=== PATIENT | male | born 1980 | race American Indian/Alaskan Native ===

== ENCOUNTER 2016-06-20 23:26 | Emergency (ER) | payer MEDICAID ==
[2016-06-21] MEDS ORDERED: NORCO 5/325 PO ONE (03:27)
[2016-06-21] MEDS ORDERED: ZOFRAN ONE (04:04)
[2016-06-21] MEDS ORDERED: MORPHINE ONE ×2 (04:04)
[2016-06-21] MEDS ORDERED: MORPHINE IM ONE (04:10)
[2016-06-21] MEDS ORDERED: ZOFRAN IM ONE (04:40)
--- NOTE | 2016-06-21 07:13 | XRay Report ---
THORACIC SPINE, 2 views: History: Back pain. The bones are normally mineralized with well preserved vertebral height, alignment and interspace distances. Mild anterior spurring is noted in the mid thoracic spine. No paraspinal soft tissue widening is noted. IMPRESSION: Mild thoracic spondylosis. No acute injury appreciated.
--- NOTE | 2016-06-21 07:14 | XRay Report ---
AP AND LATERAL LUMBOSACRAL SPINE: History: Back pain. The vertebral bodies are well mineralized and normal in alignment and vertebral height with well preserved interspace distances. The visualized portions of the posterior elements are normal. IMPRESSION: Lumbar spine within normal limits.
[2016-06-21 07:29] LABS: Basophils % (Auto) 0.4 % (0.0-1.8); Eosinophils % (Auto) 2.4 % (0.0-4.3); Hematocrit 41.1 % (35.5-45.6); Hemoglobin 13.4 gm/dl (11.8-15.2); Mean Corpuscular HGB Conc 33 % (32-34); Mean Corpuscular Hemoglobin 28 pg (28-32); Mean Corpuscular Volume 86 fl (84-94); Platelet Count 197 K/mm3 (140-440); Red Cell Distribution Width 16.4 % (13.2-15.2); White Blood Count 3.4 K/mm3 (4.5-11.0)
[2016-06-21 07:31] LABS: Urine Drugs of Abuse Note Disclamer
--- NOTE | 2016-06-21 07:33 | Emergency Department Report ---
<CARMENZA TOMLINSON M - Last Filed: 06/21/16 10:17> ED Back Pain/Injury HPI - General Chief Complaint: Back Pain/Injury Stated Complaint: BACK PAIN Time Seen by Provider: 06/21/16 03:28 - Related Data Previous Rx's Medication Instructions Recorded Last Taken Type Carvedilol [Coreg] 12.5 mg PO BID #60 tablet 01/31/16 Unknown Rx Clopidogrel [Plavix] 75 mg PO QDAY #30 tablet 01/31/16 Unknown Rx QUEtiapine [SEROquel] 25 mg PO QHS #30 tablet 01/31/16 Unknown Rx HYDROcodone/APAP 5-325 [[place] 1 each PO Q6HR PRN #10 tablet 06/21/16 Unknown Rx 5/325] methOCARBAMOL [Robaxin TAB] 500 mg PO Q6H PRN #10 tablet 06/21/16 Unknown Rx Allergies Allergy/AdvReac Type Severity Reaction Status Date / Time aspirin Allergy Hives Verified 01/14/16 02:43 ED Review of Systems ROS: Stated complaint: BACK PAIN Other details as noted in HPI ED Past Medical Hx - Medications Home Medications: Home Medications Medication Instructions Recorded Confirmed Last Taken Type Carvedilol [Coreg] 12.5 mg PO BID #60 tablet 01/31/16 Unknown Rx Clopidogrel [Plavix] 75 mg PO QDAY #30 tablet 01/31/16 Unknown Rx QUEtiapine [SEROquel] 25 mg PO QHS #30 tablet 01/31/16 Unknown Rx HYDROcodone/APAP 5-325 [[place] 1 each PO Q6HR PRN #10 tablet 06/21/16 Unknown Rx 5/325] methOCARBAMOL [Robaxin TAB] 500 mg PO Q6H PRN #10 tablet 06/21/16 Unknown Rx ED Course Vital Signs 06/21/16 06/21/16 06/21/16 00:15 03:28 04:28 Temperature 98.3 F Pulse Rate 103 H Respiratory 22 18 18 Rate Blood Pressure 157/100 Blood Pressure [Left] O2 Sat by Pulse 98 Oximetry O2 Sat by Pulse Oximetry [ Digit-Finger] 06/21/16 06/21/16 06/21/16 04:40 05:10 08:31 Temperature 98.1 F Pulse Rate 69 Respiratory 18 18 20 Rate Blood Pressure Blood Pressure 148/78 [Left] O2 Sat by Pulse 96 Oximetry O2 Sat by Pulse Oximetry [ Digit-Finger] 06/21/16 10:18 Temperature Pulse Rate Respiratory Rate Blood Pressure Blood Pressure [Left] O2 Sat by Pulse Oximetry O2 Sat by Pulse 96 Oximetry [ Digit-Finger] - Reevaluation(s) Reevaluation #1: 06/21/16 10:10 Pt ambulatory in ED, asking about dispo. PT aware of lab results. PT aware that his INR is subtheraputic. PT states his coumadin is managed by Dr Kaur. PT aware he will have to follow up. PT was treated with Morphine and [place] while in ED. PT still reports pain across lumbar spine. PT's bp improved after pain medication. PT stable for outpt follow up. Reevaluation #2: 06/21/16 10:18 pt c/o itching. no rash noted. will treat with Benadryl - Pulse Oximetry Interpretation Digit-Finger O2 Sat by Pulse Oximetry: 96 Actions Taken: none ED Medical Decision Making - Lab Data Result diagrams: 06/21/16 07:18 06/21/16 07:18 Critical care attestation.: If time is entered above; I have spent that time in minutes in the direct care of this critically ill patient, excluding procedure time. ED Disposition Clinical Impression: Acute exacerbation of chronic low back pain, Subtherapeutic international normalized ratio (INR), Elevated BP, Marijuana abuse Disposition: DISCHARGED TO HOME OR SELFCARE Is pt being admited?: No Does the pt Need Aspirin: No Condition: Stable Instructions: Chronic Back Pain (ED), Back Pain (ED) Additional Instructions: Follow up with Dr Kaur's office regarding your low INR No driving or ETOH with [place] or Robaxin Have your BP rechecked on follow up Follow up with a Neurosurgeon as already instructed Prescriptions: HYDROcodone/APAP 5-325 [[place] 5/325] 1 each PO Q6HR PRN #10 tablet PRN Reason: Pain methOCARBAMOL [Robaxin TAB] 500 mg PO Q6H PRN #10 tablet PRN Reason: Muscle Spasm Referrals: PRIMARY CARE, [Primary Care Provider] - 3-5 Days Time of Disposition: 10:15 <CINTHYA BARNEY - Last Filed: 06/22/16 07:15> ED Back Pain/Injury HPI - General Source: patient Limitations: No Limitations - History of Present Illness Initial Comments: 35-year-old male past medical history CO, TIAs, chronic back pain presents with complaint of severe lower back pain which makes his entire back feels stiff. Patient states that this episode occurred at 3 AM, visibly colicky on exam. Patient denies any direct trauma states he was at work at 3 AM when he suddenly felt pain, felt sharp could not bend or turn his trunk which is why he came to the ED. Denies any fever or chills patient is ambulatory but limping due to pain. Patient states that he has history of herniated disks and was seen at a hospital in [facility] month ago for issues with his herniated disks. Patient is poor historian and is unable to elaborate further or provide the exact name of Hospital where he claims to have been seen. Patient is fully ambulatory without assistance although limping. Patient is requesting strong pain medicine for his back pain. Patient denies any bladder or bowel incontinence denies any saddle paresthesias. MD Complaint: back pain Onset/Timin -: hour(s) Place: work Radiation: none Severity: moderate Quality: sharp Consistency: constant Improves With: immobilization Worsens With: immobilization Context: while lifting, turning/twisting, bending Associated Symptoms: denies other symptoms ED Review of Systems Constitutional: denies: chills, fever Eyes: denies: eye pain, eye discharge, vision change ENT: denies: ear pain, throat pain Respiratory: denies: cough, shortness of breath, wheezing Cardiovascular: denies: chest pain, palpitations Endocrine: no symptoms reported Gastrointestinal: denies: abdominal pain, nausea, diarrhea Genitourinary: denies: urgency, dysuria Musculoskeletal: back pain. denies: joint swelling, arthralgia Skin: denies: rash, lesions Neurological: denies: headache, weakness, paresthesias Psychiatric: denies: anxiety, depression Hematological/Lymphatic: denies: easy bleeding, easy bruising ED Past Medical Hx - Past Medical History Previous Medical History?: Yes Hx Hypertension: Yes Hx CVA: Yes (TIAs, residiu. right side weakness) Hx Heart Attack/AMI: Yes (2 stents placed 2014) Hx Congestive Heart Failure: No Hx Diabetes: Yes Hx Deep Vein Thrombosis: Yes (R-leg) Hx Pulmonary Embolism: Yes Hx GERD: No Hx Liver Disease: No Hx Renal Disease: No Hx Sickle Cell Disease: No Hx Arthritis: No Hx Headaches / Migraines: No Hx Seizures: No Hx Kidney Stones: No Hx Psychiatric Treatment: No Hx Asthma: Yes Hx COPD: No Hx Tuberculosis: No Hx Dementia: No Hx HIV: No Additional medical history: Ulcers, a-fib. strong family hx of cardiac disorders - Surgical History Hx Coronary Stent: Yes (2014) Hx Open Heart Surgery: No Hx Pacemaker: No Hx Internal Defibrillator: No Hx Cholecystectomy: No Hx Appendectomy: No Hx Breast Surgery: No Additional Surgical History: Stent placement - Social History Smoking Status: Never Smoker Substance Use Type: None ED Physical Exam - General Limitations: No Limitations General appearance: alert, in no apparent distress - Head Head exam: Present: atraumatic, normocephalic - Eye Eye exam: Present: normal appearance, PERRL, EOMI - ENT ENT exam: Present: mucous membranes moist - Neck Neck exam: Present: normal inspection - Respiratory Respiratory exam: Present: normal lung sounds bilaterally. Absent: respiratory distress - Cardiovascular Cardiovascular Exam: Present: regular rate, normal rhythm. Absent: systolic murmur, diastolic murmur, rubs, gallop - GI/Abdominal GI/Abdominal exam: Present: soft, normal bowel sounds - Rectal Rectal exam: Present: normal rectal tone (patient has normal rectal tone on digital rectal exam) - Extremities Exam Extremities exam: Present: normal inspection - Back Exam Back exam: Present: normal inspection, muscle spasm, paraspinal tenderness - Expanded Back Exam Expanded Back exam: Positive Straight Leg Raise: Right (positive straight leg raise test at 30 right leg) - Neurological Exam Neurological exam: Present: alert, oriented X3 - Psychiatric Psychiatric exam: Present: normal affect, normal mood - Skin Skin exam: Present: warm, dry, intact, normal color. Absent: rash ED Medical Decision Making - Lab Data Result diagrams: 06/21/16 07:18 06/21/16 07:18 - Medical Decision Making A/P: back pain on AC 1- Case d/w Dr. Jackson and Dr. Farrar, per Dr. Jackson obtain xrays of spine. On my clinical exam pt has no signs of cauda equina or cord compression, normal rectal tone, no bladder/bowel incontinence, no saddle paraesthesias reported. 2- as per Dr. Farrar as pt has lower back pain on AC obtain INR, plan for imaging if sig elevated, dc w/ f/u if normal, pt has no sig signs of cord compression 3- case signed out to TIARA Mercado ED Disposition Is pt being admited?: No Does the pt Need Aspirin: No
[2016-06-21 07:36] LABS: INR 1.14 (0.87-1.13)
[2016-06-21 07:46] LABS: Anion Gap 17 mmol/L; BUN/Creatinine Ratio 8.46; Blood Urea Nitrogen 11 mg/dL (9-20); Calcium 9.3 mg/dL (8.4-10.2); Carbon Dioxide 27 mmol/L (22-30); Chloride 103.5 mmol/L (98-107); Glucose 111 mg/dL (75-100); Potassium 3.8 mmol/L (3.6-5.0); Sodium 144 mmol/L (137-145)
[2016-06-21 08:32] VITALS: BP 148/78
[2016-06-21] MEDS ORDERED: BENADRYL PO ONE (10:17)
== END 2016-06-21 10:48 | disposition home or self-care (01) ==
LOC: ED 23:26
DX: M54.5 Low back pain (principal); G89.29 Other chronic pain; R03.0 Elevated blood-pressure reading, without diagnosis of hypertension; F12.10 Cannabis abuse, uncomplicated; R79.1 Abnormal coagulation profile; Z88.6 Allergy status to analgesic agent
CPT/HCPCS: 36415; 72070; 72100; 80048; 80307; 85025; 85610; 96372; 99284; J2270; J2405

== ENCOUNTER 2016-07-01 07:31 | Inpatient (IN) | payer MEDICAID ==
[2016-07-01 08:13] LABS: Basophils % (Auto) 0.9 % (0.0-1.8); Eosinophils % (Auto) 1.1 % (0.0-4.3); Hematocrit 42.5 % (35.5-45.6); Hemoglobin 13.9 gm/dl (11.8-15.2); Mean Corpuscular HGB Conc 33 % (32-34); Mean Corpuscular Hemoglobin 28 pg (28-32); Mean Corpuscular Volume 86 fl (84-94); Platelet Count 224 K/mm3 (140-440); Red Blood Count 4.95 M/mm3 (3.65-5.03); Red Cell Distribution Width 16.6 % (13.2-15.2)
[2016-07-01 08:32] LABS: INR 1.16 (0.87-1.13)
[2016-07-01 08:33] LABS: Partial Thromboplastin Time 24.2 Sec. (24.2-36.6)
[2016-07-01 08:34] LABS: Anion Gap 20 mmol/L; BUN/Creatinine Ratio 10.71; Blood Urea Nitrogen 15 mg/dL (9-20); Calcium 9.3 mg/dL (8.4-10.2); Carbon Dioxide 23 mmol/L (22-30); Chloride 99.7 mmol/L (98-107); Glucose 107 mg/dL (75-100); Potassium 4.1 mmol/L (3.6-5.0); Sodium 139 mmol/L (137-145)
--- NOTE | 2016-07-01 09:15 | Cat Scan Report ---
FINAL REPORT PROCEDURE: CT HEAD/BRAIN WO CON TECHNIQUE: Computerized tomography of the head was performed without contrast material. HISTORY: neuro deficits \T\lt; 6hrs or sx present upon awakening COMPARISON: 01/29/2016 FINDINGS: Skull and scalp: Regional scalp swelling posterior head area with no underlying skull fracture seen axial 48 through 51. Unfused anterior arch C1 skullbase incidentally seen Paranasal sinuses: Mucous retention cyst in the maxillary sinuses with lobular mucosal thickening also evident. Ventricles and subarachnoid spaces: Normal. Cerebrum: No evidence of hemorrhage, acute infarction or mass. No definitive evidence of sulcal effacement or definite evidence of acute ischemic change depicted at this time within the parenchyma. Cerebellum and brainstem: No evidence of hemorrhage, acute infarction or mass. Vasculature: In comparison to the prior study and in correlation with left to right middle cerebral artery analysis there is slight increased density within right M1 segment at 49 HU axial image 23 on the right. Comparable section on the left side HU 34. On prior study right M1 segment 38 HU and on the left 35 HU. Similar density of the right M3 segment in the sylvian fissure on current study as seen on prior study and indicating chronicity and stable appearance current image 24 and prior image 24 Comments: None. IMPRESSION: Possible subtle mildly dense right MCA sign which could reflect very early or partial thrombosis versus artifact and fortuitous anatomy lay out vis a' vis slice imaging acquisition at this time with underlying atherosclerosis. Consider followup MRI with [facility] to further evaluate No evidence of acute ischemic change within the parenchyma at this time.
--- NOTE | 2016-07-01 09:22 | Emergency Department Report ---
ED Neuro Deficit HPI - General Chief Complaint: Neuro Symptoms/Deficit Stated Complaint: WEAKNESS R LEG Time Seen by Provider: 07/01/16 08:38 Source: patient Mode of arrival: Ambulatory Limitations: No Limitations - History of Present Illness Initial Comments: 35-year-old male with a past medical history of CVA with transient left-sided weakness, right leg DVT, PE, CAD with 2 stents placed in 2014, herniated discs, atrial fibrillation, and ulcers presents to the hospital with complaints of right leg numbness and weakness. Patient states he woke up about 6 AMhe could not feel or move his leg. Triage does note that he ambulated into triage. Patient denies any pain at this time. He also denies urinary incontinence. Patient was just seen and evaluated here June 21 for back pain. INR was subtherapeutic at that time patient had a negative CT thoracic or lumbar spine. Previous medical record reviewed. As per discharge summary from January 2016 admission patient had right sided hemiparesis thought to be due to malingering vs conversion d/o with similar presentation of right leg weakness. - Related Data Home Medications: Previous Rx's Medication Instructions Recorded Last Taken Type Carvedilol [Coreg] 12.5 mg PO BID #60 tablet 01/31/16 Unknown Rx Clopidogrel [Plavix] 75 mg PO QDAY #30 tablet 01/31/16 Unknown Rx QUEtiapine [SEROquel] 25 mg PO QHS #30 tablet 01/31/16 Unknown Rx HYDROcodone/APAP 5-325 [[place] 1 each PO Q6HR PRN #10 tablet 06/21/16 Unknown Rx 5/325] methOCARBAMOL [Robaxin TAB] 500 mg PO Q6H PRN #10 tablet 06/21/16 Unknown Rx Allergies/Adverse Reactions: Allergies Allergy/AdvReac Type Severity Reaction Status Date / Time aspirin Allergy Hives Verified 01/14/16 02:43 ED Review of Systems ROS: Stated complaint: WEAKNESS R LEG Other details as noted in HPI ED Past Medical Hx - Past Medical History Hx Hypertension: Yes Hx CVA: Yes (TIAs, residiu. right side weakness) Hx Heart Attack/AMI: Yes (2 stents placed 2014) Hx Congestive Heart Failure: No Hx Diabetes: Yes Hx Deep Vein Thrombosis: Yes (R-leg) Hx Pulmonary Embolism: Yes Hx GERD: No Hx Liver Disease: No Hx Renal Disease: No Hx Sickle Cell Disease: No Hx Arthritis: No Hx Headaches / Migraines: No Hx Seizures: No Hx Kidney Stones: No Hx Psychiatric Treatment: No Hx Asthma: Yes Hx COPD: No Hx Tuberculosis: No Hx Dementia: No Hx HIV: No Additional medical history: Ulcers, a-fib. strong family hx of cardiac disorders - Surgical History Hx Coronary Stent: Yes (2014) Hx Open Heart Surgery: No Hx Pacemaker: No Hx Internal Defibrillator: No Hx Cholecystectomy: No Hx Appendectomy: No Hx Breast Surgery: No Additional Surgical History: Stent placement - Social History Smoking Status: Current Every Day Smoker Substance Use Type: Alcohol, Marijuana - Medications Home Medications: Home Medications Medication Instructions Recorded Confirmed Last Taken Type Carvedilol [Coreg] 12.5 mg PO BID #60 tablet 01/31/16 Unknown Rx Clopidogrel [Plavix] 75 mg PO QDAY #30 tablet 01/31/16 Unknown Rx QUEtiapine [SEROquel] 25 mg PO QHS #30 tablet 01/31/16 Unknown Rx HYDROcodone/APAP 5-325 [[place] 1 each PO Q6HR PRN #10 tablet 06/21/16 Unknown Rx 5/325] methOCARBAMOL [Robaxin TAB] 500 mg PO Q6H PRN #10 tablet 06/21/16 Unknown Rx ED Neuro Physical Exam - General Limitations: No Limitations Suspected Stroke: Yes - NIHSS Assessment Interval: Baseline 1a. Level of Consciousness: alert 1b. LOC Questions: answers correctly 1c. LOC Commands: performs tasks correctly 2. Best Gaze: normal 3. Visual: no visual loss 4. Facial Palsy: normal symmetrical movement 5b. Motor Arm Right: no drift 5a. Motor Arm Left: no drift 6a. Motor Leg Left: no drift 6b. Motor Leg Right: no movement 7. Limb Ataxia: absent 8. Sensory: severe/total sensory loss 9. Best Language: no aphasia 10. Dysarthria: normal 11. Extinction/Inattention: no abnormality Total Score: 6 Stroke Severity: Moderate Stroke - Other Other exam information: General: No limitations, patient is alert in no acute distress Head exam: Atraumatic, normocephalic Eyes exam: Normal appearance, pupils equal reactive to light, extraocular movements intact ENT: Moist mucous membrane, normal oropharynx Neck exam: Normal inspection, full range of motion Respiratory exam: Clear to auscultation bilateral, no wheezes, rales, crackles Cardiovascular: Normal rate and rhythm, normal heart sounds Abdomen: Soft, nondistended, and nontender, with normal bowel sounds, no rebound, or guarding Extremity: Full range of motion normal inspection no deformity Back: Normal Inspection, full range of motion, no tenderness Neurologic: Alert, oriented x3, cranial nerves intact, patient denies any feeling to right leg including pinprick and light touch. Patient will not move his leg at all Psychiatric: normal affect, normal mood Skin: Warm, dry, intact ED Course Vital Signs 07/01/16 07/01/16 07/01/16 07:40 08:05 08:30 Temperature 98.0 F Pulse Rate 106 H 74 Respiratory 20 16 16 Rate Blood Pressure 142/74 Blood Pressure 136/81 [Left] O2 Sat by Pulse 98 100 98 Oximetry 07/01/16 09:50 Temperature Pulse Rate 90 Respiratory 16 Rate Blood Pressure Blood Pressure 111/72 [Left] O2 Sat by Pulse 98 Oximetry - Reevaluation(s) Reevaluation #1: 07/01/16 11:50 Pt stable - Consultations Consultation #1: 07/01/16 09:29 case d/w Dr Page neurology, rec CTA head and neck. Spinal abnormality thought to be less likley given sx 07/01/16 11:[address] Page regarding negative ct angio. Rec admission and MRI 07/01/16 11:54 07/01/16 11:54 - Lab Data Result diagrams: 07/01/16 08:01 07/01/16 08:01 Lab Results 07/01/16 07/01/16 07/01/16 Range/Units 08:01 08:01 08:01 WBC 6.0 (4.5-11.0) K/mm3 RBC 4.95 (3.65-5.03) M/mm3 Hgb 13.9 (11.8-15.2) gm/dl Hct 42.5 (35.5-45.6) % MCV 86 (84-94) fl MCH 28 (28-32) pg MCHC 33 (32-34) % RDW 16.6 H (13.2-15.2) % Plt Count 224 (140-440) K/mm3 Lymph % (Auto) 18.8 (13.4-35.0) % [place] % (Auto) 13.3 H (0.0-7.3) % Eos % (Auto) 1.1 (0.0-4.3) % Baso % (Auto) 0.9 (0.0-1.8) % Lymph # 1.1 L (1.2-5.4) K/mm3 [place] # 0.8 (0.0-0.8) K/mm3 Eos # 0.1 (0.0-0.4) K/mm3 Baso # 0.1 (0.0-0.1) K/mm3 Seg Neutrophils % 65.9 (40.0-70.0) % Seg Neutrophils # 4.0 (1.8-7.7) K/mm3 PT 14.7 (12.2-14.9) Sec. INR 1.16 H (0.87-1.13) APTT 24.2 (24.2-36.6) Sec. Thrombin Time (15.1-19.6) Sec. Sodium 139 (137-145) mmol/L Potassium 4.1 (3.6-5.0) mmol/L Chloride 99.7 (98-107) mmol/L Carbon Dioxide 23 (22-30) mmol/L Anion Gap 20 mmol/L BUN 15 (9-20) mg/dL Creatinine 1.4 (0.8-1.5) mg/dL Estimated GFR > 60 ml/min BUN/Creatinine Ratio 10.71 % Glucose 107 H (75-100) mg/dL POC Glucose (70-105) Calcium 9.3 (8.4-10.2) mg/dL Troponin T < 0.010 (0.00-0.029) ng/mL 07/01/16 07/01/16 Range/Units 08:01 08:43 WBC (4.5-11.0) K/mm3 RBC (3.65-5.03) M/mm3 Hgb (11.8-15.2) gm/dl Hct (35.5-45.6) % MCV (84-94) fl MCH (28-32) pg MCHC (32-34) % RDW (13.2-15.2) % Plt Count (140-440) K/mm3 Lymph % (Auto) (13.4-35.0) % [place] % (Auto) (0.0-7.3) % Eos % (Auto) (0.0-4.3) % Baso % (Auto) (0.0-1.8) % Lymph # (1.2-5.4) K/mm3 [place] # (0.0-0.8) K/mm3 Eos # (0.0-0.4) K/mm3 Baso # (0.0-0.1) K/mm3 Seg Neutrophils % (40.0-70.0) % Seg Neutrophils # (1.8-7.7) K/mm3 PT (12.2-14.9) Sec. INR (0.87-1.13) APTT (24.2-36.6) Sec. Thrombin Time 16.3 (15.1-19.6) Sec. Sodium (137-145) mmol/L Potassium (3.6-5.0) mmol/L Chloride (98-107) mmol/L Carbon Dioxide (22-30) mmol/L Anion Gap mmol/L BUN (9-20) mg/dL Creatinine (0.8-1.5) mg/dL Estimated GFR ml/min BUN/Creatinine Ratio % Glucose (75-100) mg/dL POC Glucose 106 H (70-105) Calcium (8.4-10.2) mg/dL Troponin T (0.00-0.029) ng/mL - EKG Data -: EKG Interpreted by Me (sinust rate 85, nonspeific t wave abnl) - Radiology Data Radiology results: report reviewed CT head: Possible subtle mild disc right MCA sign. CT angio head and neck: Normal study without significant stenosis or occlusion - Medical Decision Making I suspect the patient is presenting with conversion disorder since he has a similar presentation to his January 2016 admission for right leg weakness that resulted in a negative neurologic workup. However, patient has assisted right leg weakness and lack of feeling with stroke risk factors and therefore will be admitted to the hospital for further workup and evaluation - Differential Diagnosis malingering/conversion d/o, spinal lesion, cva, herniated disc Critical Care Time: No Critical care attestation.: If time is entered above; I have spent that time in minutes in the direct care of this critically ill patient, excluding procedure time. ED Disposition Clinical Impression: Subtherapeutic international normalized ratio (INR), Right leg weakness Disposition: OP ADMITTED IP TO THIS HOSP Is pt being admited?: Yes Does the pt Need Aspirin: No Condition: Stable Time of Disposition: 12:05 (Dr Singh/hosp)
[2016-07-01] MEDS ORDERED: NACL ONE (09:30)
--- NOTE | 2016-07-01 10:45 | Cat Scan Report ---
CTA HEAD: 07/01/16 10:19 CLINICAL: Right leg weakness and numbness. TECHNIQUE- Volumetric acquisition and 1.25 mm scan reconstructions after the uneventful intravenous injection of 100-cc Omnipaque 350. Consent was obtained prior to the administration of the IV contrast. Sagittal and reformats were obtained. Volume rendered images were generated and reviewed on a workstation. FINDINGS: Intact [place] of [place] with no aneurysm, stenosis or occlusion. Normal symmetric blood flow and bilateral AYAN, MCA and IRRIGATOR GRAVITY FLOW. No occlusions or significant stenoses. The ICAs are intact. Normal vertebral and basilar arteries.The left vertebral artery is dominant. IMPRESSION: Normal study.
--- NOTE | 2016-07-01 10:50 | Cat Scan Report ---
CTA NECK : 07/01/16 10:18 CLINICAL: Right leg weakness and numbness. TECHNIQUE: Volumetric acquisition and 1.25 mm scan reconstructionsafter the uneventful intravenous injection of 100-cc Omnipaque 350. Consent was obtained prior to the administration of the IV contrast. Coronal and sagittal reformats were performed. Postprocessing with volume rendering was performed on a workstation. FINDINGS: Patent bilateral CCA and ICA with no stenoses or occlusions. The extracranial left ICA is tortuous. Intact vertebral arteries with a dominant left vertebral artery. Incidentally, shotty bilateral jugular chain lymph nodes. The bones and soft tissues are normal. IMPRESSION: Negative study. No significant stenosis and no occlusion.
[2016-07-01] MEDS ORDERED: MILK OF MAGNESIA PO PRN (12:13)
[2016-07-01] MEDS ORDERED: TYLENOL PO PRN (12:13)
[2016-07-01] MEDS ORDERED: DULCOLAX PR PRN (12:13)
[2016-07-01] MEDS ORDERED: ZOFRAN IV PRN (12:13)
[2016-07-01] MEDS ORDERED: ROBAXIN PO PRN (12:23)
--- NOTE | 2016-07-01 12:33 | History and Physical Report ---
History of Present Illness Date of examination: 07/01/16 Chief complaint: Sudden onset of right lower extremity weakness History of present illness: 35-year-old AA male with a past medical history of CVA with transient left- sided weakness, right leg DVT, PE, CAD with 2 stents placed in 2014, herniated discs, atrial fibrillation, and presents to the hospital with complaints of right leg numbness and weakness. Patient states he woke up about 6 AM to go to the bathroom and realized that he was unable to walk and he was dragging his right leg and he could not feel or move his leg. Triage does note that he ambulated into triage. Patient denies any pain at this time. He also denies urinary incontinence. Patient was just seen and evaluated here June 21 for back pain. At that time patient had a negative CT lumbar spine. Previous medical record reviewed. As per discharge summary from January 2016 admission patient had right sided hemiparesis thought to be due to malingering vs conversion d/o with similar presentation of right leg weakness. Patient is presently in normal sinus rhythm and his INR is subtherapeutic. He insists he takes Coumadin but he does not know the dose and home meds does not show that he is on Coumadin. Patient denies any slurred speech fall or loss of consciousness Past History Past Medical History: atrial fib, CAD, DVT, hyperlipidemia, pulmonary embolism, stroke Past Surgical History: PTCA (he claims he had 2 stents placed) Social history: smoking Family history: CAD Medications and Allergies Allergies Allergy/AdvReac Type Severity Reaction Status Date / Time aspirin Allergy Hives Verified 01/14/16 02:43 Home Medications Medication Instructions Recorded Confirmed Last Taken Type Carvedilol [Coreg] 12.5 mg PO BID #60 tablet 01/31/16 Unknown Rx Clopidogrel [Plavix] 75 mg PO QDAY #30 tablet 01/31/16 Unknown Rx QUEtiapine [SEROquel] 25 mg PO QHS #30 tablet 01/31/16 Unknown Rx HYDROcodone/APAP 5-325 [[place] 1 each PO Q6HR PRN #10 tablet 06/21/16 Unknown Rx 5/325] methOCARBAMOL [Robaxin TAB] 500 mg PO Q6H PRN #10 tablet 06/21/16 Unknown Rx Active Meds: Active Medications Acetaminophen (Tylenol) 650 mg PO Q4H PRN PRN Reason: Pain MILD(1-3)/Fever >100.5/EGAN Acetaminophen/Hydrocodone Bitart ([place] 5/325) 1 each PO Q6H PRN PRN Reason: Pain, Moderate (4-6) Bisacodyl (Dulcolax) 10 mg [place] QDAY PRN PRN Reason: Constipation unrelieved by MOM Carvedilol (Coreg) 12.5 mg PO BID [facility] Clopidogrel Bisulfate (Plavix) 75 mg PO QDAY [facility] Heparin Sodium (Porcine) (Heparin) 5,000 unit SUB-Q Q8HR [facility] Dextrose/Sodium Chloride (D5/0.45ns) 1,000 mls @ 75 mls/hr IV DIRECT [facility] Magnesium Hydroxide (Milk Of Magnesia) 30 ml PO Q4H PRN PRN Reason: Constipation Methocarbamol (Robaxin) 500 mg PO Q6H PRN PRN Reason: Muscle Spasm Ondansetron HCl (Zofran) 4 mg IV Q8H PRN PRN Reason: N/V unrelieved by Reglan Quetiapine Fumarate (Seroquel) 25 mg PO QHS [facility] Review of Systems Constitutional: no weight loss, no weight gain, no fever, no chills, no sweats, no fatigue, no weakness Ears, nose, mouth and throat: no ear pain, no ear discharge, no sore throat, no headache Cardiovascular: high blood pressure, no chest pain, no orthopnea, no palpitations, no rapid/irregular heart beat, no syncope, no lightheadedness Respiratory: no cough, no hemoptysis, no shortness of breath Gastrointestinal: no abdominal pain, no nausea, no vomiting, no diarrhea, no constipation Genitourinary Male: no dysuria, no hematuria, no flank pain, no urinary frequency, no nocturia Rectal: no pain Musculoskeletal: no neck stiffness, no neck pain Integumentary: no rash Neurological: no head injury, no seizures, no syncope Psychiatric: no anxiety, no depression Endocrine: no polyphagia, no polydipsia, no polyuria Exam - Constitutional Vitals: Temp Pulse Resp BP Pulse Ox 98.0 F 90 16 111/72 98 07/01/16 07:40 07/01/16 09:50 07/01/16 09:50 07/01/16 09:50 07/01/16 09:50 General appearance: Present: no acute distress, well-nourished - EENT Eyes: Present: PERRL, EOM intact ENT: hearing intact, clear oral mucosa - Neck Neck: Present: supple, normal ROM, masses or JVD - Respiratory Respiratory effort: normal Respiratory: bilateral: CTA - Cardiovascular Rhythm: regular Heart Sounds: Present: S1 & S2 - Extremities Extremities: No edema Peripheral Pulses: within normal limits - Abdominal General gastrointestinal: Present: soft, non-tender. Absent: hepatomegaly, splenomegaly Male genitourinary: Present: deferred - Rectal Rectal Exam: deferred - Integumentary Integumentary: Present: clear, warm, dry - Musculoskeletal Musculoskeletal: right sided weakness (rt. LE paresis. power 0/5 Motor power in all other ext. is 5/5, speech is normal) - Psychiatric Psychiatric: appropriate mood/affect - Neurologic Neurologic: CNII-XII intact Results - Labs CBC & Chem 7: 07/01/16 08:01 07/01/16 08:01 Labs: Abnormal lab results 07/01/16 07/01/16 07/01/16 Range/Units 08:01 08:01 08:01 RDW 16.6 H (13.2-15.2) % [place] % (Auto) 13.3 H (0.0-7.3) % Lymph # 1.1 L (1.2-5.4) K/mm3 INR 1.16 H (0.87-1.13) Glucose 107 H (75-100) mg/dL POC Glucose (70-105) 07/01/16 Range/Units 08:43 RDW (13.2-15.2) % [place] % (Auto) (0.0-7.3) % Lymph # (1.2-5.4) K/mm3 INR (0.87-1.13) Glucose (75-100) mg/dL POC Glucose 106 H (70-105) Assessment and Plan - Patient Problems (1) Acute right hemiparesis Onset Date: 08/12/14 Current Visit: No Status: Acute Plan to address problem: Most likely conversion disorder as the patient had similar symptoms in the past and apparently all neuro workup was negative CT of the head showed no acute lesions CTA of the head and neck also showed no acute lesions Continue Plavix Physical therapy evaluation Speech therapy evaluation Neurology consult with Dr. Rivas (2) HTN (hypertension) Current Visit: Yes Status: Acute Qualifiers: Hypertension type: H Plan to address problem: His blood pressure is fair Continue beta tom (3) Coronary artery disease Onset Date: 01/29/16 Current Visit: No Status: Acute Qualifiers: Coronary Disease-Associated Artery/Lesion type: C [place] vs. transplanted heart: N Associated angina: A Plan to address problem: Continue beta tom and Plavix Other medical conditions patient claims to have is atrial fibrillation pulmonary embolism deep pain thrombosis could not be verified I would request a cardiology consult to see if he needs Coumadin
[2016-07-01] MEDS ORDERED: D5/0.45NS 1,000 ML IV SCH (13:00)
--- NOTE | 2016-07-01 13:46 | Consultation ---
History of Present Illness - Reason for Consult Consult date: 07/01/16 stroke - History of Present Illness Thanks for the consult I went over the ED note with hx of right leg weakness will check MRI and further assess the patient Thanks for the consult Past History Past Medical History: atrial fib, CAD, DVT, hyperlipidemia, pulmonary embolism, stroke Past Surgical History: PTCA (he claims he had 2 stents placed) Social history: smoking Family history: CAD Medications and Allergies Allergies Allergy/AdvReac Type Severity Reaction Status Date / Time aspirin Allergy Hives Verified 01/14/16 02:43 Home Medications Medication Instructions Recorded Confirmed Last Taken Type Carvedilol [Coreg] 12.5 mg PO BID #60 tablet 01/31/16 Unknown Rx Clopidogrel [Plavix] 75 mg PO QDAY #30 tablet 01/31/16 Unknown Rx QUEtiapine [SEROquel] 25 mg PO QHS #30 tablet 01/31/16 Unknown Rx HYDROcodone/APAP 5-325 [[place] 1 each PO Q6HR PRN #10 tablet 06/21/16 Unknown Rx 5/325] methOCARBAMOL [Robaxin TAB] 500 mg PO Q6H PRN #10 tablet 06/21/16 Unknown Rx Active Meds: Active Medications Acetaminophen (Tylenol) 650 mg PO Q4H PRN PRN Reason: Pain MILD(1-3)/Fever >100.5/EGAN Acetaminophen/Hydrocodone Bitart ([place] 5/325) 1 each PO Q6H PRN PRN Reason: Pain, Moderate (4-6) Bisacodyl (Dulcolax) 10 mg [place] QDAY PRN PRN Reason: Constipation unrelieved by MOM Carvedilol (Coreg) 12.5 mg PO BID [facility] Clopidogrel Bisulfate (Plavix) 75 mg PO QDAY [facility] Heparin Sodium (Porcine) (Heparin) 5,000 unit SUB-Q Q8HR [facility] Dextrose/Sodium Chloride (D5/0.45ns) 1,000 mls @ 75 mls/hr IV DIRECT [facility] Magnesium Hydroxide (Milk Of Magnesia) 30 ml PO Q4H PRN PRN Reason: Constipation Methocarbamol (Robaxin) 500 mg PO Q6H PRN PRN Reason: Muscle Spasm Ondansetron HCl (Zofran) 4 mg IV Q8H PRN PRN Reason: N/V unrelieved by Leon Quetiapine Fumarate (Seroquel) 25 mg PO QHS [facility] Simvastatin (Zocor) 40 mg PO HS [facility] Exam - Constitutional Vitals: Temp Pulse Resp BP Pulse Ox 98.0 F 97 H 16 123/64 100 07/01/16 07:40 07/01/16 11:50 07/01/16 11:50 07/01/16 11:50 07/01/16 11:50 Results - Labs CBC & Chem 7: 07/01/16 08:01 07/01/16 08:01
[2016-07-01] MEDS: HEPARIN SUB-Q SCH ×2 (14:08→22:08)
--- NOTE | 2016-07-01 15:45 | Consultation ---
History of Present Illness - Reason for Consult Consult date: 07/01/16 Reason for consult: concern with possible conversion disorder Requesting physician: RICK LARA - Chief Complaint Chief complaint: Sudden onset of right lower extremity weakness - History of Present Psychiatric Illness Mr. Haque is a 35 year old black male seen for psychiatric consultation while in the ER, at the request of Dr. Lara, internal medicine MD. His current complaints are right hemiparesis. He initially presented to the ER for complains of chest pain and shortness of breath, hip pain, but it was reported he ambulated into the ER and later stated he was dragging his right leg. The medical staff noted that he was not putting any effort into trying to walk. His work up for these complaints have been negative. Per the record, he had a similar presentation 1-2 years ago which resulted in a negative work up. Therefore, there is concern for additional causes of his condition, such as conversion disorder or malingering. Mr. Haque provided minimal information to this author. He denies any psychiatric history. He reported his mother and sister last year. He lives alone and is disabled for a learning disability. He denies suicidal or homicidal ideation. Otherwise, he declined further psychiatric services. Medications and Allergies Allergies Allergy/AdvReac Type Severity Reaction Status Date / Time aspirin Allergy Hives Verified 01/14/16 02:43 Home Medications Medication Instructions Recorded Confirmed Last Taken Type Carvedilol [Coreg] 12.5 mg PO BID #60 tablet 01/31/16 Unknown Rx Clopidogrel [Plavix] 75 mg PO QDAY #30 tablet 01/31/16 Unknown Rx QUEtiapine [SEROquel] 25 mg PO QHS #30 tablet 01/31/16 Unknown Rx HYDROcodone/APAP 5-325 [[place] 1 each PO Q6HR PRN #10 tablet 06/21/16 Unknown Rx 5/325] methOCARBAMOL [Robaxin TAB] 500 mg PO Q6H PRN #10 tablet 06/21/16 Unknown Rx Active Meds: Active Medications Acetaminophen (Tylenol) 650 mg PO Q4H PRN PRN Reason: Pain MILD(1-3)/Fever >100.5/EGAN Acetaminophen/Hydrocodone Bitart ([place] 5/325) 1 each PO Q6H PRN PRN Reason: Pain, Moderate (4-6) Bisacodyl (Dulcolax) 10 mg [place] QDAY PRN PRN Reason: Constipation unrelieved by MOM Carvedilol (Coreg) 12.5 mg PO BID [facility] Clopidogrel Bisulfate (Plavix) 75 mg PO QDAY [facility] Heparin Sodium (Porcine) (Heparin) 5,000 unit SUB-Q Q8HR [facility] Last Admin: 07/01/16 14:08 Dose: 5,000 unit Dextrose/Sodium Chloride (D5/0.45ns) 1,000 mls @ 75 mls/hr IV DIRECT [facility] Magnesium Hydroxide (Milk Of Magnesia) 30 ml PO Q4H PRN PRN Reason: Constipation Methocarbamol (Robaxin) 500 mg PO Q6H PRN PRN Reason: Muscle Spasm Ondansetron HCl (Zofran) 4 mg IV Q8H PRN PRN Reason: N/V unrelieved by Reglan Quetiapine Fumarate (Seroquel) 25 mg PO QHS [facility] Simvastatin (Zocor) 40 mg PO HS [facility] Past psychiatric history - Past Medical History Past Medical History: CAD, diabetes, DVT, hypertension, hyperlipidemia, other ( asthma) Past Surgical History: PTCA - past Psychiatric treatment and history psychiatric treatment history: denies - Social History Social history: single, Lives alone Mental Status Exam - Vital signs Last Vital Signs Temp 98.0 F 07/01/16 07:40 Pulse 89 07/01/16 14:00 Resp 16 07/01/16 14:00 BP 122/71 07/01/16 14:00 Pulse Ox 100 07/01/16 14:00 - Exam Orientation: time, place, person Affect: normal Mood: other (irritable) Thought content: other (no suicidal or homicidal ideation) Thought Process: Intact Perceptions: none Speech: normal rate and pattern Concentration: focused Motor activity: normal Level of consciousness: alert Memory: Intact Sleep Symptoms: None Interaction: irritable, defensive Results Result Diagrams: 07/01/16 08:01 07/01/16 08:01 All other labs normal. Assessment and Plan Assessment and plan: He does not present to be at an imminent risk of self harm. Recommendation: Proceed with medical disposition. Unable to offer additional recommendations at this time as the patient is uncooperative with psychiatric intervention. Thank you for the opportunity to consult on this patient.
--- NOTE | 2016-07-01 20:04 | Magnetic Resonance Report ---
FINAL REPORT PROCEDURE: MR BRAIN WO CON TECHNIQUE: Magnetic resonance imaging of the brain was performed without contrast material. HISTORY: seizure COMPARISON: 07/01/2016 FINDINGS: Skull base and calvarium: Normal. Paranasal sinuses: Mucous retention cyst in the maxillary sinuses. Cerebellum: No evidence of hemorrhage, ischemia or mass. Brainstem: No evidence of hemorrhage, ischemia or mass. Cerebrum: No evidence of hemorrhage, ischemia or mass. Ventricles: Normal in size and morphology for the patient's age. Pituitary gland and sella: Normal. Globes and orbits: Normal. Vasculature: Normal arterial and venous flow voids. Other: Mild intracranial atherosclerosis. No acute intracranial pathology seen at this time. No acute ischemic change or diffusion restriction. IMPRESSION: No acute ischemic change seen at this time
[2016-07-01] MEDS: COREG PO SCH (22:07)
[2016-07-01] MEDS: ZOCOR PO SCH (22:07)
[2016-07-02] MEDS: HEPARIN SUB-Q SCH ×3 (07:10→21:44)
[2016-07-02] MEDS: COREG PO SCH ×2 (09:17→21:43)
[2016-07-02] MEDS: PLAVIX PO SCH (09:17)
[2016-07-02] MEDS: NORCO 5/325 PO PRN ×2 (09:22→17:11)
--- NOTE | 2016-07-02 10:39 | Consultation ---
History of Present Illness Consult date: 07/02/16 Consult reason: atrial fibrillation History of present illness: This is a 65 year old thin [place] male who is presenting with right leg numbness and weakness. On examination patient appears to be stable rhythm is sinus. Patient denies any cardiac symptoms. Past History Past Medical History: CAD, diabetes, DVT, hypertension, hyperlipidemia, other ( asthma) Past Surgical History: PTCA Social history: single, Lives alone Family history: CAD Medications and Allergies Allergies Allergy/AdvReac Type Severity Reaction Status Date / Time aspirin Allergy Hives Verified 01/14/16 02:43 Home Medications Medication Instructions Recorded Confirmed Last Taken Type Carvedilol [Coreg] 12.5 mg PO BID #60 tablet 01/31/16 Unknown Rx Clopidogrel [Plavix] 75 mg PO QDAY #30 tablet 01/31/16 Unknown Rx QUEtiapine [SEROquel] 25 mg PO QHS #30 tablet 01/31/16 Unknown Rx HYDROcodone/APAP 5-325 [[place] 1 each PO Q6HR PRN #10 tablet 06/21/16 Unknown Rx 5/325] methOCARBAMOL [Robaxin TAB] 500 mg PO Q6H PRN #10 tablet 06/21/16 Unknown Rx Active Meds: Active Medications Acetaminophen (Tylenol) 650 mg PO Q4H PRN PRN Reason: Pain MILD(1-3)/Fever >100.5/EGAN Acetaminophen/Hydrocodone Bitart ([place] 5/325) 1 each PO Q6H PRN PRN Reason: Pain, Moderate (4-6) Last Admin: 07/02/16 09:22 Dose: 1 each Bisacodyl (Dulcolax) 10 mg ND QDAY PRN PRN Reason: Constipation unrelieved by MOM Carvedilol (Coreg) 12.5 mg PO BID [facility] Last Admin: 07/02/16 09:17 Dose: 12.5 mg Clopidogrel Bisulfate (Plavix) 75 mg PO QDAY [facility] Last Admin: 07/02/16 09:17 Dose: 75 mg Heparin Sodium (Porcine) (Heparin) 5,000 unit SUB-Q Q8HR [facility] Last Admin: 07/02/16 07:10 Dose: 5,000 unit Dextrose/Sodium Chloride (D5/0.45ns) 1,000 mls @ 75 mls/hr IV DIRECT [facility] Last Admin: 07/01/16 19:31 Dose: 75 mls/hr Magnesium Hydroxide (Milk Of Magnesia) 30 ml PO Q4H PRN PRN Reason: Constipation Methocarbamol (Robaxin) 500 mg PO Q6H PRN PRN Reason: Muscle Spasm Ondansetron HCl (Zofran) 4 mg IV Q8H PRN PRN Reason: N/V unrelieved by Reglan Quetiapine Fumarate (Seroquel) 25 mg PO QHS [facility] Last Admin: 07/01/16 22:07 Dose: 25 mg Simvastatin (Zocor) 40 mg PO [facility] Last Admin: 07/01/16 22:07 Dose: 40 mg Review of Systems Neurological: weakness (right leg) Physical Examination Vital Signs Temp Pulse Resp BP Pulse Ox 98.0 F 106 H 20 142/74 98 07/01/16 07:40 07/01/16 07:40 07/01/16 07:40 07/01/16 07:40 07/01/16 07:40 General appearance: no acute distress, well-nourished HEENT: Positive: PERRL, Mucus Membranes Moist Neck: Positive: neck supple, trachea midline Cardiac: Positive: Reg Rate and Rhythm, S1/S2. Negative: Audible Murmur Lungs: Positive: clear to auscultation, Normal Breath Sounds Neuro: Positive: Grossly Intact Abdomen: Positive: Soft, Active Bowel Sounds. Negative: Tender, Distended Male genitourinary: Positive: normal Skin: Positive: Clear Incision: Cardiac Cath Site Musculoskeletal: No Pain, Normal Range of Motion Extremities: Present: normal. Absent: edema Results 07/01/16 08:01 07/01/16 08:01 EKG interpretations - Telemetry EKG Rhythm: Sinus Rhythm - EKG Sinus rhythms and dysrhythmias: sinus rhythm Assessment and Plan 1. Right leg weakness and numbness rule out possible TIA. 2. History of atrial fibrillation currently in sinus rhythm 3. History of coronary artery disease status post PCI and stent stable 4. History of right leg DVT 5. History of pulmonary embolism Plan. Cardiac smith patient is stable with no cardiac symptoms neurology to evaluate. Patient has a problem history on previous admissions for similar presentation symptoms. I will recommend a conservative approach to management at this point.
--- NOTE | 2016-07-02 13:48 | Discharge Summary ---
Providers - Providers Date of Admission: 07/01/16 12:14 Date of discharge: 07/02/16 Attending physician: MICHAEL MIGUEL 07/01/16 12:21 Physical Therapy Evaluation and Treat [CONS] Routine Comment: Reason For Exam: rt. hemiparesis Speech Therapy Evaluation and Treat [CONS] Routine Reason For Exam: assess swallowing 07/01/16 12:22 Consult to Physician [CONS] Routine Consulting Provider: LLUVIA RUFF Reason For Exam: hx of A fib and ??PE/DVT Place consult to:: [facility] Notified:: y Was contact made?: Yes If yes, spoke with:: [facility] Time called:: 13:00 07/01/16 12:49 psychiatry consult [Consult to Mental Health] [CONS] Routine Reason For Exam: conversion disorder Place consult to:: Mental Health Notified:: Melchor VELEZ Phone number called:: [phone]. [phone] Was contact made?: Yes If yes, spoke with:: [facility] Time called:: 16:58 Primary care physician: [employer] Hospitalization Reason for admission: right leg numbness and weakness Condition: Stable Pertinent studies: CT head CTA head and neck MRI brain Hospital course: Patient is a 35 years old obese -[place]er male with past medical history significant for coronary artery disease status post PCI and stent placement 2 in 2014, paroxysmal A. fib, RLE DVT and PE, chronic back pain, who presented to the hospital complaining of right leg numbness and weakness; he had a similar presentation a few months ago when workup was negative and his symptoms were attributed to malingering versus conversion disorder. This time he had again full stroke workup including CTA head, CTA head and neck, brain MRI and all of them showed no acute ischemia. Psychiatry was consulted giving the concern for conversion disorder, but he did not cooperate during the interview, so psychiatrist unable to give any recommendation. Patient is discharged and will follow with his PCP. Discharge diagnosis: 1. CAD 2. History of A. fib; currently in NSR; cardiology consulted and recommended to continue current management 3. History of lower extremity DVT and PE 4. Chronic back pain (history of herniated disc) 5. Depression 6. Hyperlipidemia 7. ? Malingering versus conversion disorder Disposition: DISCHARGED TO HOME OR SELFCARE Time spent for discharge: 35 min Core Measure Documentation - Palliative Care Palliative Care/ Comfort Measures: Not Applicable - Core Measures Any of the following diagnoses?: none Exam - Physical Exam Narrative exam: Patient seen and examined: - Constitutional Vitals: Temp Pulse Resp BP Pulse Ox 98.6 F 74 20 105/55 97 07/02/16 08:00 07/02/16 10:00 07/02/16 08:00 07/02/16 09:17 07/02/16 08:00 General appearance: Present: no acute distress, obese - EENT Eyes: Present: PERRL, EOM intact. Absent: scleral icterus, conjunctival injection - Neck Neck: Present: supple, normal ROM. Absent: masses or JVD - Respiratory Respiratory effort: normal Respiratory: bilateral: CTA, negative: rales, rhonchi, wheezing - Cardiovascular Rhythm: regular Heart Sounds: Present: S1 & S2. Absent: systolic murmur - Extremities Extremities: no ischemia - Abdominal General gastrointestinal: Present: soft, non-tender, non-distended, normal bowel sounds - Integumentary Integumentary: Present: warm, dry. Absent: jaundice, rash - Psychiatric Psychiatric: no intact judgment & insight - Neurologic Neurologic: no focal deficits Plan Activity: advance as tolerated Diet: low cholesterol, low salt Follow up with: [facility] [Provider Group] - 7 Days [facility],MD [Primary Care Provider] - 7 Days Prescriptions: QUEtiapine [SEROquel] 25 mg PO QHS #30 tablet Carvedilol [Coreg] 12.5 mg PO BID #60 tablet Clopidogrel [Plavix] 75 mg PO QDAY #30 tablet HYDROcodone/APAP 5-325 [[place] 5-325 mg TAB] 1 each PO Q6HR PRN #10 tablet PRN Reason: Pain Simvastatin [Zocor TAB] 40 mg PO HS #30 tablet
[2016-07-02] MEDS: ZOCOR PO SCH (21:44)
[2016-07-03] MEDS: NORCO 5/325 PO PRN ×3 (00:46→14:34)
[2016-07-03] MEDS: HEPARIN SUB-Q SCH ×2 (06:25→14:36)
--- NOTE | 2016-07-03 07:52 | Admit Criteria Form ---
Admission Criteria Documentation: [facility] Clinical Indications for Admission to Inpatient Care (Place 'X' for any and all applicable criteria): Hospital admission is needed for appropriate care of the patient because of ANY ONE of the following[A] (3)(4)(5): [ ]I. Inpatient behavioral care is needed as indicated by ALL of the following: [ ]a) Treatment is needed because of patient risk due to ANY ONE of the following: [ ]i) Imminent danger to self due to ANY ONE of the following ( 7)(8): [ ]1) Imminent risk for recurrence of a suicide attempt or act of serious self-harm as indicated by ALL of the following: [ ]A. Very recent suicide attempt or deliberate act of serious self-harm [ ]B. Absence of sufficient relief of the action' s precipitants [ ]2) Current plan for suicide or serious self-harm [ ]3) Persistent thoughts of suicide or serious self- harm that cannot be adequately monitored at a lower level of care because of ANY ONE of the following: [ ]A. Insufficient behavioral care provider availability [ ]B. Inadequate patient support system [ ]C. Patient characteristics such as high impulsivity or unreliability [ ]D. Ruminative flooding; uncontrollable and overwhelming profusion of negative thoughts [ ]E. Frantic hopelessness; fatalistic conviction that life will not improve along with oppressive sense of entrapment and doom [ ]F. Active substance use disorder is present [ ]G. Ready access to lethal means is present [ ]ii) Imminent danger to others due to ANY ONE of the following( 10)(11): [ ]1) Imminent risk for recurrence of an attempt to seriously harm another as indicated by ALL of the following: [ ]A. Very recent attempt to seriously harm another [ ]B. Absence of sufficient relief of the action' s precipitants [ ]2) Current plan for homicide or seriously harming another [ ]3) Command auditory hallucination for serious self harm to self or others [ ]4) Persistent thoughts of homicide or seriously harming another that cannot be adequately monitored at a lower level of care because of ANY ONE of the following: [ ]A. Insufficient behavioral care provider availability [ ]B. Inadequate patient support system [ ]C. Patient characteristics such as high impulsivity or unreliability [ ]D. Active substance use disorder is present [ ]E. Ready access to lethal means is present [ ]iii) Behavioral health disorder is present with ALL of the following: (12)(16)(17)(18): [ ]1) Severe psychiatric or behavioral symptoms are present , including ANY ONE of the following: [ ]A. Hallucinations that are very bothersome to patient or are associated with severe pressure to respond to voices(17)(18) [ ]B. Delusions that are very bothersome to patient or are associated with severe pressure to act on beliefs(17)(18) [ ]C. Disorganized speech that is almost impossible to follow(17)(18) [ ]D. Motor behavior that is almost constantly abnormal or bizarre or catatonic(17)(18) [ ]E. Severe negative symptoms (eg, severe decrease in facial expression or self-initiated behavior)(17)(18) [ ]F. Severe ilda (eg, daily periods of extensive mood elevation or irritability)(19)(20)(21)(22) [ ]G. Severe depression (eg, daily symptoms of deep hopelessness)[C] [ ]H. Severe anxiety[D] [ ]I. Severe comorbid substance use disorder with inability to control use, intense withdrawal symptoms, or extreme negative impact on primary psychiatric disorder(2)(7)(25) [ ]J. Severe impairment in cognition, memory, judgment, or impulse control(26)(27) [ ]K. Severe impairment in behavior, including physical or verbal aggression, disruptive behaviors, or internal or external anger manifestations (eg, rumination or outbursts)(28) [ ]L. Other psychiatric symptoms which are acute or represent worsening over baseline (eg, hyperactivity, agitation, obsessions, or compulsions)(29)(30)(31) [ ]2) Severe dysfunction in daily living is present as indicated by ANY ONE of the following: [ ]A. Extreme deterioration in social interactions ( eg, threatening behaviors with little or no provocation) [ ]B. Complete withdrawal from all social interactions [ ]C. Complete neglect of self-care with associated impairment in physical status [ ]D. Extreme disruption in vegetative function (eg , life-sustaining functions such as eating) [ ]E. Complete inability to maintain any appropriate aspect of personal responsibility in any adult roles (eg, occupational, parental) [ ]b) Treatment situation and needs are appropriate for level as indicated by ANY ONE of the following(13)(16): [ ]i) Patient unwilling to participate voluntarily and requires treatment (eg, legal commitment) in an involuntary unit [ ]ii) Voluntary treatment at lower level not feasible (e.g., very short-term crisis intervention or residential care unavailable or unacceptable for patient condition) [ ]iii) Need for physical restraint, seclusion, or other involuntary control (e.g., actively violent patient and adequate clinical rapport cannot be established to control violence) (25) [ ]iv) Mahtrr-vpr-xerpr medical or nursing care to address symptoms and initiate intervention is required; specific need has been identified [ ]II. Delirium as described by ANY ONE of the following (26)(27)(28): [ ]a) Delirium due to alcohol or sedative [B] withdrawal (16)(29)(30)( 31) [ ]b) Delirium of uncertain etiology that has not responded to appropriate treatment in emergency department or urgent care setting (32)(33) [ ]c) Delirium that prevents performance of a life-sustaining function (eg, feeding or hydrating oneself) (9) [ ]III. Administration of a somatic treatment that requires jxrycc-sat-rxyuw medical or nursing care because of a potential adverse physical effect or medical comorbidity(7) [X]IV. Behavioral Health condition, symptom, or finding for which emergency and observation care have failed or are not considered appropriate The original [facility] content created by [email or web address] has been revised. The portions of the content which have been revised are identified through the use of italic text or in bold, and [facility] has neither reviewed nor approved the modified material. All other unmodified content is copyright [facility] [employer] [employer]. Please see references footnoted in the original [facility] edition 2016 Admission Criteria Met: Yes
[2016-07-03 08:11] VITALS: BP 108/54
[2016-07-03] MEDS: PLAVIX PO SCH (09:18)
[2016-07-03] MEDS: COREG PO SCH (09:18)
--- NOTE | 2016-07-03 10:12 | Progress Note ---
Assessment and Plan Right leg weakness Aspirin allergy- on plavix instead, for primary prevention Normal sinus rhythm with nonspecific twave changes on presenting ECG. No evidence of atrial fibrillation on telemetry strips. [place] [facility] [place], EF 65%. MPI 07/2015 negative. Conservative cardiac management. Subjective Date of service: 07/03/16 Interval history: Patient resting in bed comfortably. He denies chest pain and shortness of breath. Objective Vital Signs Temp Pulse Pulse Resp BP BP Pulse Ox 07/03/16 09:18 71 108/54 07/03/16 08:09 98.1 F 71 18 108/54 98 - Physical Examination General: No Apparent Distress HEENT: Positive: PERRL Neck: Positive: trachea midline Cardiac: Positive: Reg Rate and Rhythm Lungs: Positive: Decreased Breath Sounds Neuro: Positive: Grossly Intact Abdomen: Negative: Distended Extremities: Present: normal - EKG Sinus rhythms and dysrhythmias: sinus rhythm
--- NOTE | 2016-07-03 11:56 | Progress Note ---
Assessment and Plan Assessment and plan: 1. CAD - s/p PCI with stent placement in 2014; stable; on BB, plavix and statin 2. History of A. fib; currently in NSR; cardiology consulted and recommended to continue current management 3. History of lower extremity DVT and PE - completed anticoagulation course 4. Chronic back pain (history of herniated disc) 5. Depression - on Zoloft 6. Hyperlipidemia - on statin 7. RLE weakness - CT head, CTA head and neck, brain MRI obtained and negative for acute ischemia; had similar presentation with negative work-up a few months ago; concern for malingering or conversion disorder 7. ? Malingering versus conversion disorder - eval by psych, but did not cooperate 8. Discharge issues - discharged yesterday, but refused to leave the hospital; CM arranged for rolling walker today. Coordinating his discharge 35 min spent. History Interval history: d/c-ed yesterday, but did leave; IMAN arranged to go home with a rolling walker; continues to refuse to move RLE, but when unaware he is watched, movements were noted Hospitalist Physical - Constitutional Vitals: Temp Pulse Resp BP Pulse Ox 98.1 F 71 18 108/54 98 07/03/16 08:09 07/03/16 09:18 07/03/16 08:09 07/03/16 09:18 07/03/16 08:09 General appearance: Present: no acute distress, obese - EENT Eyes: Present: PERRL, EOM intact. Absent: scleral icterus, conjunctival injection - Neck Neck: Present: supple, normal ROM. Absent: masses or JVD - Respiratory Respiratory effort: normal Respiratory: bilateral: diminished (bibasilar), negative: rhonchi, wheezing - Cardiovascular Rhythm: regular Heart Sounds: Present: S1 & S2. Absent: systolic murmur - Extremities Extremities: no ischemia - Abdominal General gastrointestinal: soft, non-tender, non-distended, normal bowel sounds - Integumentary Integumentary: Present: warm, dry. Absent: jaundice, rash - Neurologic Neurologic: other (unable to accurately assess, refusing to move RLE) Results - Labs CBC & Chem 7: 07/01/16 08:01 07/01/16 08:01 Labs: Laboratory Last Values WBC 6.0 K/mm3 (4.5-11.0) 07/01/16 08:01 RBC 4.95 M/mm3 (3.65-5.03) 07/01/16 08:01 Hgb 13.9 gm/dl (11.8-15.2) 07/01/16 08:01 Hct 42.5 % (35.5-45.6) 07/01/16 08:01 MCV 86 fl (84-94) 07/01/16 08:01 MCH 28 pg (28-32) 07/01/16 08:01 MCHC 33 % (32-34) 07/01/16 08:01 RDW 16.6 % (13.2-15.2) H 07/01/16 08:01 Plt Count 224 K/mm3 (140-440) 07/01/16 08:01 Lymph % (Auto) 18.8 % (13.4-35.0) 07/01/16 08:01 [place] % (Auto) 13.3 % (0.0-7.3) H 07/01/16 08:01 Eos % (Auto) 1.1 % (0.0-4.3) 07/01/16 08:01 Baso % (Auto) 0.9 % (0.0-1.8) 07/01/16 08:01 Lymph # 1.1 K/mm3 (1.2-5.4) L 07/01/16 08:01 [place] # 0.8 K/mm3 (0.0-0.8) 07/01/16 08:01 Eos # 0.1 K/mm3 (0.0-0.4) 07/01/16 08:01 Baso # 0.1 K/mm3 (0.0-0.1) 07/01/16 08:01 Seg Neutrophils % 65.9 % (40.0-70.0) 07/01/16 08:01 Seg Neutrophils # 4.0 K/mm3 (1.8-7.7) 07/01/16 08:01 PT 14.7 Sec. (12.2-14.9) 07/01/16 08:01 INR 1.16 (0.87-1.13) H 07/01/16 08:01 APTT 24.2 Sec. (24.2-36.6) 07/01/16 08:01 Thrombin Time 16.3 Sec. (15.1-19.6) 07/01/16 08:01 Sodium 139 mmol/L (137-145) 07/01/16 08:01 Potassium 4.1 mmol/L (3.6-5.0) 07/01/16 08:01 Chloride 99.7 mmol/L (98-107) 07/01/16 08:01 Carbon Dioxide 23 mmol/L (22-30) 07/01/16 08:01 Anion Gap 20 mmol/L 07/01/16 08:01 BUN 15 mg/dL (9-20) 07/01/16 08:01 Creatinine 1.4 mg/dL (0.8-1.5) 07/01/16 08:01 Estimated GFR > 60 ml/min 07/01/16 08:01 BUN/Creatinine Ratio 10.71 % 07/01/16 08:01 Glucose 107 mg/dL (75-100) H 07/01/16 08:01 POC Glucose 106 (70-105) H 07/01/16 08:43 Calcium 9.3 mg/dL (8.4-10.2) 07/01/16 08:01 Troponin T < 0.010 ng/mL (0.00-0.029) 07/01/16 08:01
== END 2016-07-03 18:10 | disposition home or self-care (01) | DRG 880 ==
LOC: ED 07:31 → 3A 12:14 → 4A 12:49 → OBSVTOIN 07-03 07:30
PROVIDERS: ADMIT Internal Medicine; ATTEND Internal Medicine
DX: F44.4 Conversion disorder with motor symptom or deficit (principal); G81.91 Hemiplegia, unspecified affecting right dominant side; I25.10 Atherosclerotic heart disease of native coronary artery without angina pectoris; I48.91 Unspecified atrial fibrillation; I10 Essential (primary) hypertension; E11.9 Type 2 diabetes mellitus without complications; J45.909 Unspecified asthma, uncomplicated; F17.210 Nicotine dependence, cigarettes, uncomplicated; E78.5 Hyperlipidemia, unspecified; E66.9 Obesity, unspecified; G89.29 Other chronic pain; F32.9 Major depressive disorder, single episode, unspecified; Z88.6 Allergy status to analgesic agent; Z68.36 Body mass index [BMI] 36.0-36.9, adult; Z86.718 Personal history of other venous thrombosis and embolism; Z95.5 Presence of coronary angioplasty implant and graft; Z86.711 Personal history of pulmonary embolism; Z82.49 Family history of ischemic heart disease and other diseases of the circulatory system; Z79.01 Long term (current) use of anticoagulants; Z79.899 Other long term (current) drug therapy; Z76.5 Malingerer [conscious simulation]
CPT/HCPCS: 36415; 70450; 70496; 70498; 70551; 80048; 82962; 84484; 85025; 85610; 85670; 85730; 93005; 93010; G0378; J1644; Q9967

== ENCOUNTER 2016-11-21 00:40 | Emergency (ER) | payer MEDICAID | END 2016-11-21 00:55 | disposition left against medical advice (07) | LOC: ED 00:40 | DX: R10.9 Unspecified abdominal pain (principal); Z53.21 Procedure and treatment not carried out due to patient leaving prior to being seen by health care provider ==

== ENCOUNTER 2016-11-26 00:14 | Emergency (ER) | payer MEDICAID ==
[2016-11-26] MEDS ORDERED: TYLENOL PO ONE (01:17)
[2016-11-26 01:20] LABS: Hematocrit 40.8 % (35.5-45.6); Hemoglobin 13.7 gm/dl (11.8-15.2); Mean Corpuscular HGB Conc 34 % (32-34); Mean Corpuscular Hemoglobin 29 pg (28-32); Mean Corpuscular Volume 86 fl (84-94); Platelet Count 192 K/mm3 (140-440); Red Blood Count 4.76 M/mm3 (3.65-5.03); Red Cell Distribution Width 15.8 % (13.2-15.2); White Blood Count 3.8 K/mm3 (4.5-11.0)
[2016-11-26 01:38] LABS: Anion Gap 18 mmol/L; BUN/Creatinine Ratio 7.85; Blood Urea Nitrogen 11 mg/dL (9-20); Calcium 9.2 mg/dL (8.4-10.2); Carbon Dioxide 24 mmol/L (22-30); Chloride 101.1 mmol/L (98-107); Glucose 87 mg/dL (75-100); Potassium 3.9 mmol/L (3.6-5.0); Sodium 139 mmol/L (137-145)
[2016-11-26 02:13] LABS: Blastocytes % (Manual) 0 %; Diff Status Complete; Platelet Estimate Consistent w Auto; RBC Morphology Normal
--- NOTE | 2016-11-26 07:03 | Emergency Department Report ---
ED Chest Pain HPI - General Chief Complaint: Chest Pain Stated Complaint: CHEST PAIN Time Seen by Provider: 11/26/16 06:55 Source: patient Mode of arrival: Ambulatory Limitations: No Limitations - History of Present Illness Initial Comments: Mr. Haque is a 36 years old -Filipino male, with chest pains been going on for 3 days described his pain as sharp and left sided radiate to the back on and off denied any shortness of breath, nausea, vomiting or diarrhea. MD Complaint: chest pain -: Gradual Severity scale (0 -10): 5 Worsens With: inspiration - Related Data Previous Rx's Medication Instructions Recorded Last Taken Type methOCARBAMOL [Robaxin TAB] 500 mg PO Q6H PRN #10 tablet 06/21/16 Unknown Rx Carvedilol [Coreg] 12.5 mg PO BID #60 tablet 07/02/16 Unknown Rx Clopidogrel [Plavix] 75 mg PO QDAY #30 tablet 07/02/16 Unknown Rx HYDROcodone/APAP 5-325 [[place] 1 each PO Q6HR PRN #10 tablet 07/02/16 Unknown Rx 5-325 mg TAB] QUEtiapine [SEROquel] 25 mg PO QHS #30 tablet 07/02/16 Unknown Rx Simvastatin [Zocor TAB] 40 mg PO HS #30 tablet 07/02/16 Unknown Rx Ondansetron [Zofran Odt] 4 mg PO Q8HR PRN #14 tab.rapdis 11/26/16 Unknown Rx traMADol [Ultram] 50 mg PO Q6HR PRN #14 tablet 11/26/16 Unknown Rx Allergies Allergy/AdvReac Type Severity Reaction Status Date / Time aspirin Allergy Hives Verified 01/14/16 02:43 Heart Score - HEART Score History: Moderately suspicious EKG: Non-specific Age: < 45 Risk factors: No known risk factors Troponin: < normal limit HEART Score: 2 - Critical Actions Critical Actions: 0-3 pts:0.9-1.7%risk of adverse cardiac event.Candidate for discharge ED Review of Systems ROS: Stated complaint: CHEST PAIN Other details as noted in HPI Comment: All other systems reviewed and negative Constitutional: denies: chills, fever Respiratory: denies: cough, shortness of breath Cardiovascular: chest pain. denies: palpitations, dyspnea on exertion, orthopnea Gastrointestinal: denies: nausea, vomiting, diarrhea Skin: denies: rash Neurological: denies: headache, numbness, confusion ED Past Medical Hx - Past Medical History Hx Hypertension: Yes Hx CVA: Yes (TIAs, residiu. right side weakness) Hx Heart Attack/AMI: Yes (2 stents placed 2014) Hx Congestive Heart Failure: No Hx Diabetes: Yes Hx Deep Vein Thrombosis: Yes (R-leg) Hx Pulmonary Embolism: Yes Hx GERD: No Hx Liver Disease: No Hx Renal Disease: No Hx Sickle Cell Disease: No Hx Arthritis: No Hx Headaches / Migraines: No Hx Seizures: No Hx Kidney Stones: No Hx Psychiatric Treatment: No Hx Asthma: Yes Hx COPD: No Hx Tuberculosis: No Hx Dementia: No Hx HIV: No Additional medical history: Ulcers, a-fib. strong family hx of cardiac disorders - Surgical History Hx Coronary Stent: Yes (2014) Hx Open Heart Surgery: No Hx Pacemaker: No Hx Internal Defibrillator: No Hx Cholecystectomy: No Hx Appendectomy: No Hx Breast Surgery: No Additional Surgical History: Stent placement - Social History Smoking Status: Current Every Day Smoker Substance Use Type: None - Medications Home Medications: Home Medications Medication Instructions Recorded Confirmed Last Taken Type methOCARBAMOL [Robaxin TAB] 500 mg PO Q6H PRN #10 tablet 06/21/16 Unknown Rx Carvedilol [Coreg] 12.5 mg PO BID #60 tablet 07/02/16 Unknown Rx Clopidogrel [Plavix] 75 mg PO QDAY #30 tablet 07/02/16 Unknown Rx HYDROcodone/APAP 5-325 [[place] 1 each PO Q6HR PRN #10 tablet 07/02/16 Unknown Rx 5-325 mg TAB] QUEtiapine [SEROquel] 25 mg PO QHS #30 tablet 07/02/16 Unknown Rx Simvastatin [Zocor TAB] 40 mg PO HS #30 tablet 07/02/16 Unknown Rx Ondansetron [Zofran Odt] 4 mg PO Q8HR PRN #14 tab.rapdis 11/26/16 Unknown Rx traMADol [Ultram] 50 mg PO Q6HR PRN #14 tablet 11/26/16 Unknown Rx ED Physical Exam - General Limitations: No Limitations General appearance: alert, in no apparent distress (patient's sleeping when I will continue the room easily arousable) - Head Head exam: Present: normocephalic - Eye Eye exam: Present: normal appearance - ENT ENT exam: Present: normal exam - Neck Neck exam: Present: normal inspection. Absent: tenderness, meningismus - Respiratory Respiratory exam: Present: normal lung sounds bilaterally. Absent: respiratory distress, wheezes, rales, rhonchi, stridor, decreased breath sounds, prolonged expiratory - Cardiovascular Cardiovascular Exam: Present: regular rate, normal rhythm, normal heart sounds - GI/Abdominal GI/Abdominal exam: Present: soft. Absent: distended, tenderness, guarding, rebound - Back Exam Back exam: Present: normal inspection. Absent: CVA tenderness (R), CVA tenderness (L) - Neurological Exam Neurological exam: Present: alert, oriented X3, CN II-XII intact - Psychiatric Psychiatric exam: Present: normal affect - Skin Skin exam: Present: warm, intact ED Course Vital Signs 11/26/16 11/26/16 00:27 06:47 Temperature 98.4 F 97 F L Pulse Rate 89 81 Respiratory 16 18 Rate Blood Pressure 148/101 Blood Pressure 111/66 [Left] O2 Sat by Pulse 96 98 Oximetry - Reevaluation(s) Reevaluation #1: 11/26/16 07:04 Patient remained asymptomatic in the ER he said he is feeling better and he is ready to go home KIANNA score - Kianna Score Age > 65: (0) No Aspirin use within the Past 7 Days: (0) No 3 or more CAD Risk Factors: (1) Yes 2 or more Angina events in past 24 hrs: (1) Yes Known CAD with more than 50% Stenosis: (0) No Elevated Cardiac Markers: (0) No ST Deviation Greater than 0.5mm: (0) No KIANNA Score: 2 ED Medical Decision Making - Lab Data Result diagrams: 11/26/16 00:58 11/26/16 00:58 - Medical Decision Making Patient previous record patient had 2 negative, troponin his chest pain is atypical we will discharge home to follow up with his primary doctor Critical care attestation.: If time is entered above; I have spent that time in minutes in the direct care of this critically ill patient, excluding procedure time. ED Disposition Clinical Impression: Chest pain Disposition: DC-01 TO HOME OR SELFCARE Is pt being admited?: No Condition: Stable Instructions: Chest Pain (ED) Referrals: PRIMARY CARE, [Primary Care Provider] - 3-5 Days
[2016-11-26 07:40] VITALS: BP 97/55
--- NOTE | 2016-11-26 09:11 | XRay Report ---
CHEST TWO VIEWS: 11/26/16 00:14:00 CLINICAL: Chest pain. COMPARISON: 01/29/16 FINDINGS: Normal heart and pulmonary vasculature.Aortic tortuosity. The lungs are normally expanded and clear.The bones and soft tissues are unremarkable. IMPRESSION: No acute cardiopulmonary process.
== END 2016-11-26 07:40 | disposition home or self-care (01) ==
LOC: ED 00:14
DX: R07.9 Chest pain, unspecified (principal); I10 Essential (primary) hypertension; I25.2 Old myocardial infarction; J45.909 Unspecified asthma, uncomplicated; F17.200 Nicotine dependence, unspecified, uncomplicated
CPT/HCPCS: 36415; 71020; 80048; 84484; 85007; 85025; 93005; 93010

== ENCOUNTER 2017-07-15 01:44 | Emergency (ER) | payer MEDICAID ==
[2017-07-15 03:46] VITALS: BP 125/62
[2017-07-15 04:13] LABS: Hematocrit 35.7 % (35.5-45.6); Hemoglobin 11.3 gm/dl (11.8-15.2); Mean Corpuscular HGB Conc 32 % (32-34); Mean Corpuscular Volume 80 fl (84-94); Platelet Count 186 K/mm3 (140-440); Red Blood Count 4.49 M/mm3 (3.65-5.03); Red Cell Distribution Width 18.4 % (13.2-15.2)
[2017-07-15 04:16] LABS: Mean Corpuscular Hemoglobin 25 pg (28-32)
[2017-07-15 04:25] LABS: INR 1.14 (0.87-1.13); Partial Thromboplastin Time 26.9 Sec. (24.2-36.6)
[2017-07-15 04:34] LABS: BUN/Creatinine Ratio 15; Blood Urea Nitrogen 16 mg/dL (9-20); Calcium 8.4 mg/dL (8.4-10.2); Hemolysis Index 3
--- NOTE | 2017-07-15 06:01 | Cat Scan Report ---
FINAL REPORT EXAM: CT HEAD/BRAIN WO CON HISTORY: fall ? head injury, on coumadin TECHNIQUE: CT imaging acquired through the head without intravenous contrast. Transaxial reformations are provided. PRIORS: 07/01/2016 CT and MRI FINDINGS: The ventricles, cisterns and sulci are normal. No intraparenchymal or extra-axial mass, hemorrhage, or mass effect. Bailey and white-matter differentiation is normal. Normal spherical shape of the globes. Chronic maxillary sinus mucosal thickening without air-fluid level. Remaining imaged paranasal sinuses and mastoid air cells are unremarkable. Posterior scalp thickening appears similar to prior exam. No skull or facial fracture visualized. IMPRESSION: No acute intracranial abnormality.
--- NOTE | 2017-07-15 06:03 | Cat Scan Report ---
FINAL REPORT EXAM: CT CERVICAL SPINE WO CON HISTORY: fall ? head injury, on coumadin TECHNIQUE: CT imaging is acquired through the cervical spine without contrast. Transaxial, coronal and sagittal reformations are provided. PRIORS: None. FINDINGS: The cervical spine is intact. Vertebral body heights are preserved. 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 No acute fracture or listhesis. Atlanto-dens interval and odontoid process are intact. Intervertebral disc spaces are otherwise preserved. No perivertebral soft tissue swelling or hematoma identified. Limited soft tissue exam of the visualized neck is unremarkable. IMPRESSION: No acute cervical spine fracture identified. Correlate with physical exam and follow up as warranted.
--- NOTE | 2017-07-15 06:15 | Cat Scan Report ---
FINAL REPORT EXAM: CT LUMBAR SPINE WO CON HISTORY: fall, back, right leg pain TECHNIQUE: CT images are acquired through the lumbar spine without contrast. Transaxial , coronal and sagittal reformations are provided. PRIORS: None. FINDINGS: Lumbar lordosis is intact. Vertebral body heights and intervertebral disc spaces are preserved. No listhesis, spondylolysis or other fracture. Paraspinal soft tissues and imaged portions of the abdomen and pelvis demonstrate an unremarkable noncontrast appearance. IMPRESSION: No lumbar spine fracture or malalignment.
--- NOTE | 2017-07-15 09:27 | Emergency Department Report ---
ED General Adult HPI - General Chief complaint: Extremity Injury, Lower Stated complaint: RIGHT LEG,BACK PAIN Time Seen by Provider: 07/15/17 09:16 Source: patient Mode of arrival: Ambulatory Limitations: No Limitations - History of Present Illness Initial comments: Mrs. Haque is a 36-year-old male with a history of CVA, AR, diabetes who presents with syncope right lower extremity pain. He stated approximately 10: 30 PM he passed out at work. When he awakened he had right flank pain radiating to the back of his right leg. He has pain with weightbearing. He is unable to walk due to the pain. He denies chest pain. Denies palpitations. Denies shortness of breath. He is unclear whether he hit his head. He is taking Coumadin warfarin to treat stroke. He is followed by primary physician at [facility]. He was working with the local [employer]. Sudden onset of pain after syncope in the right leg right flank 10/10 achy sharp pain. He has a history of 2 "slipped disc". - Related Data Previous Rx's Medication Instructions Recorded Last Taken Type methOCARBAMOL [Robaxin TAB] 500 mg PO Q6H PRN #10 tablet 06/21/16 Unknown Rx HYDROcodone/APAP 5-325 [[place] 1 each PO Q6HR PRN #10 tablet 07/02/16 Unknown Rx 5-325 mg TAB] QUEtiapine [SEROquel] 25 mg PO QHS #30 tablet 07/02/16 Unknown Rx traMADol [Ultram 50 MG tab] 50 mg PO Q6HR PRN #14 tablet 11/26/16 Unknown Rx Apixaban [Eliquis] 5 mg PO BID #60 tablet 07/05/17 Unknown Rx Carvedilol [Coreg] 12.5 mg PO BID #60 tablet 07/05/17 Unknown Rx Clopidogrel [Plavix] 75 mg PO QDAY #30 tablet 07/05/17 Unknown Rx Lisinopril [Zestril TAB] 2.5 mg PO QDAY #30 tablet 07/05/17 Unknown Rx Nicotine [Habitrol] 14 mg TD QDAY #30 patch 07/05/17 Unknown Rx Simvastatin [Zocor TAB] 40 mg PO HS #30 tablet 07/05/17 Unknown Rx HYDROcodone/ACETAMINOPHEN [[place] 1 each PO Q6H PRN #10 tablet 07/15/17 Unknown Rx 10-325 Tablet] Allergies Allergy/AdvReac Type Severity Reaction Status Date / Time aspirin Allergy Hives Verified 01/14/16 02:43 ED Review of Systems ROS: Stated complaint: RIGHT LEG,BACK PAIN Other details as noted in HPI Comment: All other systems reviewed and negative Respiratory: denies: cough Cardiovascular: denies: chest pain, palpitations Gastrointestinal: denies: abdominal pain, nausea, vomiting ED Past Medical Hx - Past Medical History Previous Medical History?: Yes Hx Hypertension: Yes Hx CVA: Yes (TIAs, residiu. right side weakness) Hx Heart Attack/AMI: Yes (2 stents placed 2017) Hx Congestive Heart Failure: Yes Hx Diabetes: Yes Hx Deep Vein Thrombosis: Yes (R-leg) Hx Pulmonary Embolism: Yes Hx GERD: No Hx Liver Disease: No Hx Renal Disease: No Hx Sickle Cell Disease: No Hx Arthritis: No Hx Headaches / Migraines: No Hx Seizures: No Hx Kidney Stones: No Hx Psychiatric Treatment: No Hx Asthma: Yes Hx COPD: No Hx Tuberculosis: No Hx Dementia: No Hx HIV: No Additional medical history: Ulcers, a-fib. strong family hx of cardiac disorders - Surgical History Past Surgical History?: Yes Hx Coronary Stent: Yes (x2 2017) Hx Open Heart Surgery: No Hx Pacemaker: No Hx Internal Defibrillator: No Hx Cholecystectomy: No Hx Appendectomy: No Hx Breast Surgery: No Additional Surgical History: Stent placement - Social History Smoking Status: Current Some Day Smoker - Medications Home Medications: Home Medications Medication Instructions Recorded Confirmed Last Taken Type methOCARBAMOL [Robaxin TAB] 500 mg PO Q6H PRN #10 tablet 06/21/16 12/20/16 Unknown Rx HYDROcodone/APAP 5-325 [[place] 1 each PO Q6HR PRN #10 tablet 07/02/16 12/20/16 Unknown Rx 5-325 mg TAB] QUEtiapine [SEROquel] 25 mg PO QHS #30 tablet 07/02/16 12/20/16 Unknown Rx traMADol [Ultram 50 MG tab] 50 mg PO Q6HR PRN #14 tablet 11/26/16 12/20/16 Unknown Rx Apixaban [Eliquis] 5 mg PO BID #60 tablet 07/05/17 Unknown Rx Carvedilol [Coreg] 12.5 mg PO BID #60 tablet 03/15/18 Unknown Rx Clopidogrel [Plavix] 75 mg PO QDAY #30 tablet 07/05/17 Unknown Rx Lisinopril [Zestril TAB] 2.5 mg PO QDAY #30 tablet 07/05/17 Unknown Rx Nicotine [Habitrol] 14 mg TD QDAY #30 patch 07/05/17 Unknown Rx Simvastatin [Zocor TAB] 40 mg PO HS #30 tablet 07/05/17 Unknown Rx HYDROcodone/ACETAMINOPHEN [[place] 1 each PO Q6H PRN #10 tablet 07/15/17 Unknown Rx 10-325 Tablet] ED Physical Exam - General Limitations: No Limitations General appearance: alert, in no apparent distress, other (awake alert articulate gives a full history, initially sleeping with legs crossed at the ankle seemed quite comfortable, easily arousable from sleep) - Head Head exam: Present: atraumatic, normocephalic - Eye Eye exam: Present: normal appearance, PERRL, EOMI Pupils: Present: normal accommodation - ENT ENT exam: Present: normal orophraynx, mucous membranes moist - Neck Neck exam: Present: normal inspection. Absent: tenderness, meningismus - Respiratory Respiratory exam: Present: normal lung sounds bilaterally. Absent: respiratory distress, wheezes, rales, rhonchi - Cardiovascular Cardiovascular Exam: Present: regular rate, normal rhythm, normal heart sounds. Absent: systolic murmur, diastolic murmur, rubs, gallop - GI/Abdominal GI/Abdominal exam: Present: soft, normal bowel sounds. Absent: distended, tenderness, guarding, rebound - Rectal Rectal exam: Present: deferred - Extremities Exam Extremities exam: Present: normal inspection - Back Exam Back exam: Present: normal inspection. Absent: CVA tenderness (R) - Neurological Exam Neurological exam: Present: alert, oriented X3 - Psychiatric Psychiatric exam: Present: normal affect, normal mood - Skin Skin exam: Present: warm, dry, intact, normal color. Absent: rash ED Course Vital Signs 07/15/17 07/15/17 03:33 09:30 Temperature 98.2 F 98.2 F Pulse Rate 93 H 80 Respiratory 16 16 Rate Blood Pressure 125/62 O2 Sat by Pulse 98 98 Oximetry ED Medical Decision Making - Lab Data Result diagrams: 07/15/17 04:02 07/15/17 04:02 Laboratory Results - last 24 hr 07/15/17 07/15/17 07/15/17 03:54 04:02 04:02 WBC 4.3 L RBC 4.49 Hgb 11.3 L Hct 35.7 MCV 80 L MCH 25 L MCHC 32 RDW 18.4 H Plt Count 186 PT 15.2 H INR 1.14 H APTT 26.9 Sodium Potassium Chloride Carbon Dioxide Anion Gap BUN Creatinine Estimated GFR BUN/Creatinine Ratio Glucose POC Glucose 134 H Calcium 07/15/17 04:02 WBC RBC Hgb Hct MCV MCH MCHC RDW Plt Count PT INR APTT Sodium 138 Potassium 3.6 Chloride 101.2 Carbon Dioxide 24 Anion Gap 16 BUN 16 Creatinine 1.1 Estimated GFR > 60 BUN/Creatinine Ratio 15 Glucose 131 H POC Glucose Calcium 8.4 - EKG Data -: EKG Interpreted by Me EKG shows normal: sinus rhythm, axis, intervals, QRS complexes, ST-T waves Rate: normal - EKG Data 07/15/17 10:09 NSR nl rate nl axis nl intervals no ST-T signs of ischemia no ST elevation rate 70 beats per minute - Medical Decision Making Mr. Haque presents with syncope and sciatica. No indication of arrhythmia or PE. No indication of AR. No history of "slipped discs". He appears well. He appears quite comfortable. I provided analgesia in the ED. I have provided a prescription for [place] 10 tablets. Discharged home to follow-up with his primary physician at [facility]. Critical Care Time: No Critical care attestation.: If time is entered above; I have spent that time in minutes in the direct care of this critically ill patient, excluding procedure time. ED Disposition Clinical Impression: Syncope, Sciatica, Subtherapeutic international normalized ratio (INR) Disposition: DC-01 TO HOME OR SELFCARE Is pt being admited?: No Does the pt Need Aspirin: No Condition: Stable Instructions: Syncope (ED) Prescriptions: HYDROcodone/ACETAMINOPHEN [[place] 10-325 Tablet] 1 each PO Q6H PRN #10 tablet PRN Reason: Pain, Moderate (4-6) Referrals: HOMERO TROTTER MD [Primary Care Provider] - 3-5 Days Time of Disposition: 10:12
[2017-07-15] MEDS ORDERED: PERCOCET 5/325 PO ONE (09:29)
== END 2017-07-15 10:40 | disposition home or self-care (01) ==
LOC: ED 01:44
DX: M54.30 Sciatica, unspecified side (principal); R55 Syncope and collapse; I11.0 Hypertensive heart disease with heart failure; I50.9 Heart failure, unspecified; I25.2 Old myocardial infarction; J45.909 Unspecified asthma, uncomplicated; I48.91 Unspecified atrial fibrillation; F17.200 Nicotine dependence, unspecified, uncomplicated; Z86.718 Personal history of other venous thrombosis and embolism; Z86.711 Personal history of pulmonary embolism; Z79.01 Long term (current) use of anticoagulants; Z95.818 Presence of other cardiac implants and grafts; Z88.6 Allergy status to analgesic agent; Z86.73 Personal history of transient ischemic attack (TIA), and cerebral infarction without residual deficits
CPT/HCPCS: 36415; 70450; 72125; 72131; 80048; 82962; 85027; 85610; 85730; 93005; 93010; 99284

== ENCOUNTER 2017-08-24 01:12 | Emergency (ER) | payer MEDICAID ==
[2017-08-24 01:19] VITALS: BP 127/69
[2017-08-24] MEDS ORDERED: ASPIRIN PO ONE (01:49)
[2017-08-24 02:13] LABS: Basophils # (Auto) 0.1 K/mm3 (0.0-0.1); Basophils % (Auto) 1.4 % (0.0-1.8); Eosinophils # (Auto) 0.2 K/mm3 (0.0-0.4); Hematocrit 37.4 % (35.5-45.6); Hemoglobin 12.4 gm/dl (11.8-15.2); Lymphocytes # (Auto) 1.5 K/mm3 (1.2-5.4); Lymphocytes % (Auto) 37.1 % (13.4-35.0); Mean Corpuscular HGB Conc 33 % (32-34); Mean Corpuscular Hemoglobin 26 pg (28-32); Mean Corpuscular Volume 79 fl (84-94); Monocytes # (Auto) 0.5 K/mm3 (0.0-0.8); Monocytes % (Auto) 11.7 % (0.0-7.3); Platelet Count 194 K/mm3 (140-440); Red Blood Count 4.73 M/mm3 (3.65-5.03); Red Cell Distribution Width 17.3 % (13.2-15.2)
[2017-08-24 02:23] LABS: BUN/Creatinine Ratio 10; Blood Urea Nitrogen 13 mg/dL (9-20); Hemolysis Index 2
== END 2017-08-24 01:49 | disposition left against medical advice (07) ==
LOC: ED 01:12
DX: R07.9 Chest pain, unspecified (principal); Z53.21 Procedure and treatment not carried out due to patient leaving prior to being seen by health care provider
CPT/HCPCS: 36415; 80048; 84484; 85025; 93005; 93010

== ENCOUNTER 2017-08-24 05:53 | Inpatient (IN) | payer MEDICAID ==
[2017-08-24 09:00] LABS: Basophils % (Auto) 1.1 % (0.0-1.8); Eosinophils # (Auto) 0.2 K/mm3 (0.0-0.4); Eosinophils % (Auto) 4.4 % (0.0-4.3); Hematocrit 36.5 % (35.5-45.6); Hemoglobin 11.7 gm/dl (11.8-15.2); Lymphocytes # (Auto) 1.3 K/mm3 (1.2-5.4); Lymphocytes % (Auto) 34.3 % (13.4-35.0); Mean Corpuscular HGB Conc 32 % (32-34); Mean Corpuscular Volume 81 fl (84-94); Monocytes # (Auto) 0.5 K/mm3 (0.0-0.8); Monocytes % (Auto) 14.5 % (0.0-7.3); Platelet Count 182 K/mm3 (140-440); Red Blood Count 4.51 M/mm3 (3.65-5.03); Red Cell Distribution Width 17.5 % (13.2-15.2)
[2017-08-24 09:09] LABS: Mean Corpuscular Hemoglobin 26 pg (28-32)
--- NOTE | 2017-08-24 09:10 | XRay Report ---
AP CHEST: HISTORY: chest pain AP view of the chest demonstrates a normal mediastinal and cardiac contour with clear lungs and normal bony and soft tissue structures. No change since 07/04/17. IMPRESSION: Unremarkable AP chest.
[2017-08-24 09:14] LABS: INR 1.14 (0.87-1.13); Partial Thromboplastin Time 26.3 Sec. (24.2-36.6)
[2017-08-24 09:24] LABS: Alanine Aminotransferase 20 units/L (7-56); Albumin 3.6 g/dL (3.9-5); BUN/Creatinine Ratio 10; Blood Urea Nitrogen 12 mg/dL (9-20); Calcium 8.7 mg/dL (8.4-10.2); Hemolysis Index 6
[2017-08-24 09:28] LABS: Bilirubin,Direct < 0.2 mg/dL (0-0.2)
--- NOTE | 2017-08-24 09:46 | Emergency Department Report ---
ED Chest Pain HPI - General Chief Complaint: Extremity Injury, Upper Stated Complaint: ARM PAIN Time Seen by Provider: 08/24/17 08:17 Source: patient Mode of arrival: Ambulatory Limitations: No Limitations - History of Present Illness Initial Comments: This is a 36-year-old man with multiple cardiac risk factors that states he has sharp chest pain and left arm pain for 3 days constantly. He states that the pain in his left arm is not affected by movement. However when I move his arm he is wincing and states that this maneuver makes his arm hurt. In any case, he appears to be comfortable with his sharp chest pain. He has had a prior negative stress test. He is status post 2 stents in 2017. He has multiple risk factors for atherosclerotic disease to include cerebrovascular disease hypertension smoking dyslipidemia. He has a history of atrial fibrillation. He is currently in a sinus rhythm. He states he has a mild residual degree of weakness on the left from his prior stroke. He was admitted here in June and had a negative nuclear stress test. He has been seen by [facility]. He appears to be packing his possessions. I am unsure as to his residential status. MD Complaint: chest pain -: Gradual, days(s) Onset: during rest Pain Location: left chest Pain Radiation: LUE Severity: moderate Quality: sharp Consistency: constant Improves With: nothing Worsens With: movement (variable history ) re: denies: nausea, vomting, diaphoresis, dyspnea, sense of impending doom Other Symptoms: denies: cough, fever, syncope Treatments Prior to Arrival: none Aspirin use within the Past 7 Days: (0) No - Related Data Previous Rx's Medication Instructions Recorded Last Taken Type methOCARBAMOL [Robaxin TAB] 500 mg PO Q6H PRN #10 tablet 06/21/16 Unknown Rx HYDROcodone/APAP 5-325 [[place] 1 each PO Q6HR PRN #10 tablet 07/02/16 Unknown Rx 5-325 mg TAB] QUEtiapine [SEROquel] 25 mg PO QHS #30 tablet 07/02/16 Unknown Rx traMADol [Ultram 50 MG tab] 50 mg PO Q6HR PRN #14 tablet 11/26/16 Unknown Rx Apixaban [Eliquis] 5 mg PO BID #60 tablet 07/05/17 Unknown Rx Carvedilol [Coreg] 12.5 mg PO BID #60 tablet 07/05/17 Unknown Rx Clopidogrel [Plavix] 75 mg PO QDAY #30 tablet 07/05/17 Unknown Rx Lisinopril [Zestril TAB] 2.5 mg PO QDAY #30 tablet 07/05/17 Unknown Rx Nicotine [Habitrol] 14 mg TD QDAY #30 patch 07/05/17 Unknown Rx Simvastatin [Zocor TAB] 40 mg PO HS #30 tablet 07/05/17 Unknown Rx HYDROcodone/ACETAMINOPHEN [[place] 1 each PO Q6H PRN #10 tablet 07/15/17 Unknown Rx 10-325 Tablet] Allergies Allergy/AdvReac Type Severity Reaction Status Date / Time aspirin Allergy Hives Verified 01/14/16 02:43 Heart Score - HEART Score History: Slightly suspicious EKG: Non-specific Age: < 45 Risk factors: > 3 risk factors or hx of atherosclerotic disease Troponin: < normal limit HEART Score: 3 - Critical Actions Critical Actions: 0-3 pts:0.9-1.7%risk of adverse cardiac event.Candidate for discharge ED Review of Systems ROS: Stated complaint: ARM PAIN Other details as noted in HPI Constitutional: denies: chills, fever Eyes: denies: eye pain, eye discharge, vision change ENT: denies: ear pain, throat pain Respiratory: denies: cough, shortness of breath, wheezing Cardiovascular: chest pain. denies: palpitations Endocrine: no symptoms reported Gastrointestinal: denies: abdominal pain, nausea, diarrhea Genitourinary: denies: urgency, dysuria Musculoskeletal: denies: back pain, joint swelling, arthralgia Skin: denies: rash, lesions Neurological: denies: headache, weakness, paresthesias Psychiatric: denies: anxiety, depression Hematological/Lymphatic: denies: easy bleeding, easy bruising ED Past Medical Hx - Past Medical History Previous Medical History?: Yes Hx Hypertension: Yes Hx CVA: Yes (TIAs, residiu. right side weakness) Hx Heart Attack/AMI: Yes (2 stents placed 2016) Hx Congestive Heart Failure: Yes Hx Diabetes: Yes Hx Deep Vein Thrombosis: Yes (R-leg) Hx Pulmonary Embolism: Yes Hx GERD: No Hx Liver Disease: No Hx Renal Disease: No Hx Sickle Cell Disease: No Hx Arthritis: No Hx Headaches / Migraines: No Hx Seizures: No Hx Kidney Stones: No Hx Psychiatric Treatment: No Hx Asthma: Yes Hx COPD: No Hx Tuberculosis: No Hx Dementia: No Hx HIV: No Additional medical history: Ulcers, a-fib. strong family hx of cardiac disorders - Surgical History Past Surgical History?: Yes Hx Coronary Stent: Yes (x2 2017) Hx Open Heart Surgery: No Hx Pacemaker: No Hx Internal Defibrillator: No Hx Cholecystectomy: No Hx Appendectomy: No Hx Breast Surgery: No Additional Surgical History: Stent placement - Social History Smoking Status: Current Every Day Smoker Substance Use Type: None - Medications Home Medications: Home Medications Medication Instructions Recorded Confirmed Last Taken Type methOCARBAMOL [Robaxin TAB] 500 mg PO Q6H PRN #10 tablet 06/21/16 12/20/16 Unknown Rx HYDROcodone/APAP 5-325 [[place] 1 each PO Q6HR PRN #10 tablet 07/02/16 12/20/16 Unknown Rx 5-325 mg TAB] QUEtiapine [SEROquel] 25 mg PO QHS #30 tablet 07/02/16 12/20/16 Unknown Rx traMADol [Ultram 50 MG tab] 50 mg PO Q6HR PRN #14 tablet 11/26/16 12/20/16 Unknown Rx Apixaban [Eliquis] 5 mg PO BID #60 tablet 07/05/17 Unknown Rx Carvedilol [Coreg] 12.5 mg PO BID #60 tablet 07/05/17 Unknown Rx Clopidogrel [Plavix] 75 mg PO QDAY #30 tablet 07/05/17 Unknown Rx Lisinopril [Zestril TAB] 2.5 mg PO QDAY #30 tablet 07/05/17 Unknown Rx Nicotine [Habitrol] 14 mg TD QDAY #30 patch 07/05/17 Unknown Rx Simvastatin [Zocor TAB] 40 mg PO HS #30 tablet 07/05/17 Unknown Rx HYDROcodone/ACETAMINOPHEN [[place] 1 each PO Q6H PRN #10 tablet 07/15/17 Unknown Rx 10-325 Tablet] ED Physical Exam - General Limitations: No Limitations General appearance: alert, in no apparent distress - Head Head exam: Present: atraumatic, normocephalic - Eye Eye exam: Present: normal appearance. Absent: scleral icterus - ENT ENT exam: Present: mucous membranes moist - Neck Neck exam: Present: normal inspection. Absent: tenderness, meningismus - Respiratory Respiratory exam: Present: normal lung sounds bilaterally. Absent: respiratory distress - Cardiovascular Cardiovascular Exam: Present: regular rate, normal rhythm. Absent: systolic murmur, diastolic murmur, rubs, gallop - GI/Abdominal GI/Abdominal exam: Present: soft, normal bowel sounds. Absent: distended, tenderness, guarding, rebound, rigid - Rectal Rectal exam: Present: deferred - Extremities Exam Extremities exam: Present: other (range of motion of the left arm precipitates discomfort) - Back Exam Back exam: Present: normal inspection - Neurological Exam Neurological exam: Present: alert, oriented X3, CN II-XII intact. Absent: motor sensory deficit (questionable left arm drift but may be secondary to pain. I did not detect a right hemiparesthesias as per previous records) - Psychiatric Psychiatric exam: Present: normal affect, normal mood - Skin Skin exam: Present: warm, dry, intact, normal color. Absent: rash ED Course Vital Signs 08/24/17 08/24/17 05:54 06:19 Temperature 98.3 F 98.3 F Pulse Rate 80 81 Respiratory 18 18 Rate Blood Pressure 100/60 Blood Pressure 100/60 [Left] O2 Sat by Pulse 98 98 Oximetry - Reevaluation(s) Reevaluation #1: It does appear that this patient has a musculoskeletal component of his arm pain. He will be admitted for further risk stratification considering his history of coronary artery disease. 08/24/17 09:57 KIANNA score - Kianna Score Age > 65: (0) No Aspirin use within the Past 7 Days: (0) No 3 or more CAD Risk Factors: (1) Yes 2 or more Angina events in past 24 hrs: (1) Yes Known CAD with more than 50% Stenosis: (0) No Elevated Cardiac Markers: (0) No ST Deviation Greater than 0.5mm: (0) No KIANNA Score: 2 ED Medical Decision Making - Lab Data Result diagrams: 08/24/17 08:49 08/24/17 08:49 Laboratory Results - last 24 hr 08/24/17 08/24/17 08/24/17 08:49 08:49 08:49 WBC 3.8 L RBC 4.51 Hgb 11.7 L Hct 36.5 MCV 81 L MCH 26 L MCHC 32 RDW 17.5 H Plt Count 182 Lymph % (Auto) 34.3 [place] % (Auto) 14.5 H Eos % (Auto) 4.4 H Baso % (Auto) 1.1 Lymph # 1.3 [place] # 0.5 Eos # 0.2 Baso # 0.0 Seg Neutrophils % 45.7 Seg Neutrophils # 1.7 L PT 15.2 H INR 1.14 H APTT 26.3 D-Dimer 173.20 Sodium 143 Potassium 3.8 Chloride 104.7 Carbon Dioxide 26 Anion Gap 16 BUN 12 Creatinine 1.2 Estimated GFR > 60 BUN/Creatinine Ratio 10 Glucose 83 Calcium 8.7 Total Bilirubin 0.20 Direct Bilirubin < 0.2 Indirect Bilirubin 0.0 AST 17 ALT 20 Alkaline Phosphatase 99 Troponin T < 0.010 Total Protein 6.5 Albumin 3.6 L Albumin/Globulin Ratio 1.2 - EKG Data -: EKG Interpreted by Hi EKG shows normal: sinus rhythm, axis, intervals, QRS complexes, ST-T waves Rate: normal - EKG Data Interpretation: nonspecific ST-T wave mellissa - Radiology Data Radiology results: report reviewed (no acute process) Critical care attestation.: If time is entered above; I have spent that time in minutes in the direct care of this critically ill patient, excluding procedure time. ED Disposition Clinical Impression: Chest pain Qualifiers: Chest pain type: chest pain on breathing Qualified Code(s): R07.1 - Chest pain on breathing; R07.81 - Pleurodynia Coronary artery disease Qualifiers: Coronary Disease-Associated Artery/Lesion type: [place] artery [place] vs. transplanted heart: [place] heart Associated angina: with unspecified angina Qualified Code(s): I25.119 - Atherosclerotic heart disease of [place] coronary artery with unspecified angina pectoris Disposition: OP ADMIT IP TO THIS HOSP Is pt being admited?: Yes Does the pt Need Aspirin: Yes Condition: Stable Instructions: Chest Pain (ED) Referrals: PRIMARY CARE, [Primary Care Provider] - 3-5 Days Time of Disposition: 10:00
[2017-08-24 10:13] LABS: Creatine Kinase MB 2.3 ng/mL (0.0-4.0)
--- NOTE | 2017-08-24 10:57 | History and Physical Report ---
History of Present Illness Date of examination: 08/24/17 Date of admission: 08/24/17 09:45 Chief complaint: Chest and left arm pain 3 days History of present illness: Very pleasant 36-year-old male patient with multiple medical problems well known to us service presented to the emergency room with chest pain and left arm pain for the last 3 days patient has history of coronary artery disease status post PCI in 2017 follows with cardiology he also had stress test 2 months ago which was negative for reversible ischemia patient claims compliance with medications initial workup was negative IN screen CK CK-MB and troponin I 1 is negative, EKG no acute ST-T changes Denies nausea vomiting abdominal pain Denies headache dizziness weakness and numbness Past History Past Medical History: atrial fib, CAD, hypertension, hyperlipidemia, pulmonary embolism, other (CVA TIA) Past Surgical History: PTCA Social history: lives with family, smoking, full code. denies: alcohol abuse, prescription drug abuse Family history: CAD, hypertension Medications and Allergies Allergies Allergy/AdvReac Type Severity Reaction Status Date / Time aspirin Allergy Hives Verified 01/14/16 02:43 Home Medications Medication Instructions Recorded Confirmed Last Taken Type traMADol [Ultram 50 MG tab] 50 mg PO Q6HR PRN #14 tablet 11/26/16 08/24/17 Unknown Rx Atorvastatin Calcium [Lipitor] 10 mg PO DAILY 08/24/17 08/24/17 Unknown History Famotidine [Pepcid] 20 mg PO BID 08/24/17 08/24/17 Unknown History Insulin Regular, Human [Novolin R] 1 dose SUB-Q BID 08/24/17 08/24/17 Unknown History Loperamide HCl [Anti-Diarrheal] 2 mg PO QID PRN 08/24/17 08/24/17 Unknown History Naproxen [Naprosyn] 500 mg PO BID 08/24/17 08/24/17 Unknown History Nitroglycerin [Nitrostat] 0.4 mg SL Q5M PRN 08/24/17 08/24/17 Unknown History Ondansetron [Zofran TAB] 4 mg PO Q8HR PRN 08/24/17 08/24/17 Unknown History Review of Systems Constitutional: no weight loss, no weight gain Ears, nose, mouth and throat: no nasal congestion, no nasal discharge Cardiovascular: chest pain, no orthopnea, no palpitations, no rapid/irregular heart beat Respiratory: no cough, no shortness of breath Gastrointestinal: no abdominal pain, no nausea, no vomiting Genitourinary Male: no dysuria, no hematuria Rectal: no pain, no bleeding Musculoskeletal: no myalgias, no arthritis Integumentary: no rash, no lesions Neurological: no seizures, no convulsions Psychiatric: no anxiety, no depression Endocrine: no cold intolerance, no heat intolerance Hematologic/Lymphatic: no easy bruising, no easy bleeding Allergic/Immunologic: no urticaria, no allergic rhinitis Exam - Constitutional Vitals: Temp Pulse Resp BP Pulse Ox 98.3 F 81 18 100/60 98 08/24/17 06:19 08/24/17 06:19 08/24/17 06:19 08/24/17 06:19 08/24/17 06:19 General appearance: Present: no acute distress, well-nourished, obese - EENT Eyes: Present: PERRL, EOM intact - Neck Neck: Present: normal ROM - Respiratory Respiratory effort: normal Respiratory: bilateral: diminished, negative: rales, rhonchi, wheezing - Cardiovascular Rhythm: regular Heart Sounds: Present: S1 & S2 - Extremities Extremities: no ischemia, No edema - Abdominal General gastrointestinal: Present: soft, non-tender, non-distended, normal bowel sounds - Integumentary Integumentary: Present: clear, warm - Musculoskeletal Musculoskeletal: strength equal bilaterally, generalized weakness - Psychiatric Psychiatric: appropriate mood/affect, cooperative - Neurologic Neurologic: CNII-XII intact, moves all extremities Results - Labs CBC & Chem 7: 08/24/17 08:49 08/24/17 08:49 Labs: Abnormal lab results 08/24/17 08/24/17 08/24/17 Range/Units 08:49 08:49 08:49 WBC 3.8 L (4.5-11.0) K/mm3 Hgb 11.7 L (11.8-15.2) gm/dl MCV 81 L (84-94) fl MCH 26 L (28-32) pg RDW 17.5 H (13.2-15.2) % [place] % (Auto) 14.5 H (0.0-7.3) % Eos % (Auto) 4.4 H (0.0-4.3) % Seg Neutrophils # 1.7 L (1.8-7.7) K/mm3 PT 15.2 H (12.2-14.9) Sec. INR 1.14 H (0.87-1.13) Total Creatine Kinase (55-170) units/L Albumin 3.6 L (3.9-5) g/dL 08/24/17 Range/Units 08:49 WBC (4.5-11.0) K/mm3 Hgb (11.8-15.2) gm/dl MCV (84-94) fl MCH (28-32) pg RDW (13.2-15.2) % [place] % (Auto) (0.0-7.3) % Eos % (Auto) (0.0-4.3) % Seg Neutrophils # (1.8-7.7) K/mm3 PT (12.2-14.9) Sec. INR (0.87-1.13) Total Creatine Kinase 374 H (55-170) units/L Albumin (3.9-5) g/dL Assessment and Plan --Atypical chest pain; rule out acute coronary syndrome Probably non-cardiac secondary to GERD costochondritis However in view of history of coronary artery disease status post PCI serial cardiac enzymes, stress test, Aspirin beta blockers and Bill inhibitors nitrates and statins had negative stress test on 07/04/2017 with normal LVEF 57% --History of coronary artery disease status post PCI; continue current cardiac medications --Dyslipidemia; stable on lipid-lowering medications --History of PE; patient reports that her primary care physician discontinued anticoagulation --Ongoing tobacco use; smoking cessation counseling done advised nicotine patch as needed --DVT prophylaxis; Lovenox Closely monitor the patient and adjust the management as needed Plan of care reviewed with the patient and his nurse Possible discharge in 1-2 days if stable
[2017-08-24] MEDS ORDERED: NITROSTAT SL PRN (11:19)
[2017-08-24] MEDS ORDERED: MORPHINE IV ONE (11:38)
[2017-08-24] MEDS ORDERED: MORPHINE ONE (11:47)
[2017-08-24] MEDS ORDERED: ZOFRAN PO PRN (14:21)
[2017-08-24] MEDS ORDERED: ULTRAM PO PRN (14:21)
[2017-08-24] MEDS: MORPHINE IV PRN ×2 (15:59→19:58)
[2017-08-24 18:02] LABS: Creatine Kinase MB 2.2 ng/mL (0.0-4.0)
[2017-08-24] MEDS: COREG PO SCH (21:47)
[2017-08-24] MEDS: PEPCID PO SCH (21:47)
[2017-08-25 00:11] LABS: Bilirubin,Urine NEG (Negative); Blood,Urine NEG (Negative); Color,Urine Yellow (Yellow); Mucus,Urine FEW /HPF; Protein,Urine <15 mg/dL mg/dL (Negative); WBC,Urine < 1.0 /HPF (0.0-6.0)
[2017-08-25] MEDS: MORPHINE IV PRN ×3 (00:13→09:56)
[2017-08-25 00:19] LABS: Amphetamine Screen,Urine PRESUMPTIVE NEGATIVE; Benzodiazepines Screen,Urine PRESUMPTIVE NEGATIVE; Cocaine Screen,Urine PRESUMPTIVE NEGATIVE; Methadone Screen,Urine PRESUMPTIVE NEGATIVE; Opiate Screen,Urine PRESUMPTIVE NEGATIVE
[2017-08-25 00:32] LABS: Cannabinoid Screen,Urine PRESUMPTIVE POSITIVE
[2017-08-25 01:13] LABS: Creatine Kinase MB 2.2 ng/mL (0.0-4.0)
[2017-08-25] MEDS: PEPCID PO SCH (09:57)
[2017-08-25] MEDS: COREG PO SCH (09:57)
[2017-08-25] MEDS ORDERED: BABY ASPIRIN PO SCH (10:00)
[2017-08-25] MEDS ORDERED: ZESTRIL PO SCH (10:00)
[2017-08-25 12:05] VITALS: BP 107/64
--- NOTE | 2017-08-25 12:47 | Discharge Summary ---
Providers - Providers Date of Admission: 08/24/17 09:45 Date of discharge: 08/25/17 Attending physician: TAMAR HINES Primary care physician: CITLALI RUBI MD Hospitalization Condition: Stable Disposition: DC-01 TO HOME OR SELFCARE Time spent for discharge: 32 min Core Measure Documentation - Palliative Care Palliative Care/ Comfort Measures: Not Applicable - Core Measures Any of the following diagnoses?: none Exam - Constitutional Vitals: Temp Pulse Resp BP Pulse Ox 98.5 F 80 20 107/64 97 08/25/17 11:30 08/25/17 11:30 08/25/17 11:30 08/25/17 11:30 08/25/17 11:30 General appearance: Present: no acute distress, well-nourished, obese - EENT Eyes: Present: PERRL, EOM intact - Neck Neck: Present: supple, normal ROM - Respiratory Respiratory effort: normal Respiratory: negative: rales, rhonchi, wheezing - Cardiovascular Rhythm: regular Heart Sounds: Present: S1 & S2 - Extremities Extremities: no ischemia, No edema Peripheral Pulses: within normal limits - Abdominal General gastrointestinal: Present: soft, non-tender, non-distended, normal bowel sounds - Integumentary Integumentary: Present: clear, warm - Musculoskeletal Musculoskeletal: strength equal bilaterally, generalized weakness - Psychiatric Psychiatric: appropriate mood/affect, cooperative - Neurologic Neurologic: moves all extremities Plan Activity: advance as tolerated Diet: other (cardiac diet) Additional Instructions: Diet modification and exercise as tolerated and weight reduction. On the day tries to comply with medications and diet. Follow-up with primary care physician, cardiology per schedule Follow up with: CITLALI RUBI MD [Primary Care Provider] - 3-5 Days ABEBE MENDES MD [Staff Physician] - 7 Days Prescriptions: Carvedilol [Coreg] 12.5 mg PO BID #60 tablet Lisinopril [Zestril TAB] 2.5 mg PO QDAY #30 tablet
== END 2017-08-25 17:14 | disposition home or self-care (01) | DRG 206 ==
LOC: ED 05:53 → 4A 09:45
PROVIDERS: ADMIT Internal Medicine; ATTEND Internal Medicine
DX: M94.0 Chondrocostal junction syndrome [Tietze] (principal); J45.909 Unspecified asthma, uncomplicated; K21.9 Gastro-esophageal reflux disease without esophagitis; F17.200 Nicotine dependence, unspecified, uncomplicated; I48.91 Unspecified atrial fibrillation; Z88.6 Allergy status to analgesic agent; I69.351 Hemiplegia and hemiparesis following cerebral infarction affecting right dominant side; Z86.718 Personal history of other venous thrombosis and embolism; Z79.01 Long term (current) use of anticoagulants; Z95.5 Presence of coronary angioplasty implant and graft; Z79.899 Other long term (current) drug therapy; Z82.49 Family history of ischemic heart disease and other diseases of the circulatory system; Z71.6 Tobacco abuse counseling; Z86.711 Personal history of pulmonary embolism; I25.119 Atherosclerotic heart disease of native coronary artery with unspecified angina pectoris
CPT/HCPCS: 36415; 71045; 80048; 80074; 80307; 81001; 82550; 82553; 82962; 84484; 85025; 85379; 85610; 85730; 93005; 93010; 96374; A9270-GY; J2270

== ENCOUNTER 2017-09-23 23:59 | Emergency (ER) | payer MEDICAID ==
[2017-09-24 01:20] LABS: Basophils # (Auto) 0.1 K/mm3 (0.0-0.1); Basophils % (Auto) 1.5 % (0.0-1.8); Eosinophils # (Auto) 0.1 K/mm3 (0.0-0.4); Eosinophils % (Auto) 2.2 % (0.0-4.3); Hematocrit 37.4 % (35.5-45.6); Hemoglobin 11.8 gm/dl (11.8-15.2); Lymphocytes # (Auto) 1.4 K/mm3 (1.2-5.4); Lymphocytes % (Auto) 30.9 % (13.4-35.0); Mean Corpuscular HGB Conc 32 % (32-34); Mean Corpuscular Volume 81 fl (84-94); Monocytes # (Auto) 0.6 K/mm3 (0.0-0.8); Monocytes % (Auto) 13.8 % (0.0-7.3); Platelet Count 235 K/mm3 (140-440); Red Blood Count 4.63 M/mm3 (3.65-5.03); Red Cell Distribution Width 17.4 % (13.2-15.2)
[2017-09-24 01:27] LABS: Mean Corpuscular Hemoglobin 26 pg (28-32)
[2017-09-24 01:35] LABS: BUN/Creatinine Ratio 13; Blood Urea Nitrogen 18 mg/dL (9-20); Calcium 9.3 mg/dL (8.4-10.2); Hemolysis Index 19
[2017-09-24 01:38] LABS: INR 1.06 (0.87-1.13)
[2017-09-24 01:39] LABS: Partial Thromboplastin Time 24.6 Sec. (24.2-36.6)
[2017-09-24] MEDS ORDERED: NITROSTAT SL PRN (10:33)
--- NOTE | 2017-09-24 11:13 | XRay Report ---
ROUTINE CHEST, TWO VIEWS: HISTORY: chest pain. The trachea, heart, mediastinal contour, lung davis and bony thorax are unremarkable. No significant change since 08/24/17. IMPRESSION: Unremarkable chest x-ray.
--- NOTE | 2017-09-24 11:31 | Emergency Department Report ---
ED Chest Pain HPI - General Chief Complaint: Chest Pain Stated Complaint: CHEST,NECK,JAW PAIN Time Seen by Provider: 09/24/17 10:16 Source: patient Mode of arrival: Ambulatory Limitations: No Limitations - History of Present Illness Initial Comments: 2 days of right-sided chest pain that radiates to his jaw/arm. It is exertional. Constant. Nonpleuritic. Not positional. Not affected by food. Never has had a heart attack before. His mom and sister have had a heart attack. No family history of sudden cardiac . Denies shortness of breath , cough, fever. Severity scale (0 -10): 10 - Related Data Home Medications Medication Instructions Recorded Confirmed Last Taken Atorvastatin Calcium [Lipitor] 10 mg PO DAILY 08/24/17 08/24/17 Unknown Famotidine [Pepcid] 20 mg PO BID 08/24/17 08/24/17 Unknown Loperamide HCl [Anti-Diarrheal] 2 mg PO QID PRN 08/24/17 08/24/17 Unknown Naproxen [Naprosyn] 500 mg PO BID 08/24/17 08/24/17 Unknown Nitroglycerin [Nitrostat] 0.4 mg SL Q5M PRN 08/24/17 08/24/17 Unknown Ondansetron [Zofran TAB] 4 mg PO Q8HR PRN 08/24/17 08/24/17 Unknown Previous Rx's Medication Instructions Recorded Last Taken Type traMADol [Ultram 50 MG tab] 50 mg PO Q6HR PRN #14 tablet 11/26/16 Unknown Rx Carvedilol [Coreg] 12.5 mg PO BID #60 tablet 08/25/17 Unknown Rx Lisinopril [Zestril TAB] 2.5 mg PO QDAY #30 tablet 08/25/17 Unknown Rx Allergies Allergy/AdvReac Type Severity Reaction Status Date / Time aspirin Allergy Hives Verified 01/14/16 02:43 Heart Score - HEART Score History: Slightly suspicious EKG: Normal Age: < 45 Risk factors: > 3 risk factors or hx of atherosclerotic disease Troponin: < normal limit HEART Score: 2 ED Review of Systems ROS: Stated complaint: CHEST,NECK,JAW PAIN Other details as noted in HPI Comment: All other systems reviewed and negative Cardiovascular: chest pain ED Past Medical Hx - Past Medical History Previous Medical History?: Yes Hx Hypertension: Yes Hx CVA: Yes (TIAs, residiu. right side weakness) Hx Heart Attack/AMI: Yes (2 stents placed 2017) Hx Congestive Heart Failure: Yes Hx Diabetes: Yes Hx Deep Vein Thrombosis: Yes (R-leg) Hx Pulmonary Embolism: Yes Hx GERD: No Hx Liver Disease: No Hx Renal Disease: No Hx Sickle Cell Disease: No Hx Arthritis: No Hx Headaches / Migraines: No Hx Seizures: No Hx Kidney Stones: No Hx Psychiatric Treatment: No Hx Asthma: Yes Hx COPD: No Hx Tuberculosis: No Hx Dementia: No Hx HIV: No Additional medical history: Ulcers, a-fib. strong family hx of cardiac disorders - Surgical History Past Surgical History?: Yes Hx Coronary Stent: Yes (x2 2017) Hx Open Heart Surgery: No Hx Pacemaker: No Hx Internal Defibrillator: No Hx Cholecystectomy: No Hx Appendectomy: No Hx Breast Surgery: No Additional Surgical History: Stent placement - Social History Smoking Status: Current Every Day Smoker Substance Use Type: None - Medications Home Medications: Home Medications Medication Instructions Recorded Confirmed Last Taken Type traMADol [Ultram 50 MG tab] 50 mg PO Q6HR PRN #14 tablet 11/26/16 08/24/17 Unknown Rx Atorvastatin Calcium [Lipitor] 10 mg PO DAILY 08/24/17 08/24/17 Unknown History Famotidine [Pepcid] 20 mg PO BID 08/24/17 08/24/17 Unknown History Loperamide HCl [Anti-Diarrheal] 2 mg PO QID PRN 08/24/17 08/24/17 Unknown History Naproxen [Naprosyn] 500 mg PO BID 08/24/17 08/24/17 Unknown History Nitroglycerin [Nitrostat] 0.4 mg SL Q5M PRN 08/24/17 08/24/17 Unknown History Ondansetron [Zofran TAB] 4 mg PO Q8HR PRN 08/24/17 08/24/17 Unknown History Carvedilol [Coreg] 12.5 mg PO BID #60 tablet 08/25/17 Unknown Rx Lisinopril [Zestril TAB] 2.5 mg PO QDAY #30 tablet 08/25/17 Unknown Rx ED Physical Exam - General Limitations: No Limitations General appearance: alert, in no apparent distress - Head Head exam: Present: atraumatic, normocephalic - Eye Eye exam: Present: normal appearance - ENT ENT exam: Present: mucous membranes moist - Neck Neck exam: Present: normal inspection - Respiratory Respiratory exam: Present: normal lung sounds bilaterally. Absent: respiratory distress - Cardiovascular Cardiovascular Exam: Present: regular rate, normal rhythm. Absent: systolic murmur, diastolic murmur, rubs, gallop - GI/Abdominal GI/Abdominal exam: Present: soft, normal bowel sounds. Absent: tenderness - Rectal Rectal exam: Present: deferred - Extremities Exam Extremities exam: Present: normal inspection - Back Exam Back exam: Present: normal inspection - Neurological Exam Neurological exam: Present: alert, oriented X3 - Psychiatric Psychiatric exam: Present: normal affect, normal mood - Skin Skin exam: Present: warm, dry, intact, normal color. Absent: rash ED Course Vital Signs 09/24/17 09/24/17 09/24/17 00:18 00:39 05:47 Temperature 98.6 F 98.6 F Pulse Rate 95 H 95 H 84 Respiratory 18 18 16 Rate Blood Pressure 150/93 150/93 130/93 O2 Sat by Pulse 99 99 98 Oximetry 09/24/17 09/24/17 09/24/17 07:35 07:36 07:37 Temperature Pulse Rate Respiratory Rate Blood Pressure 129/81 O2 Sat by Pulse 98 99 98 Oximetry 09/24/17 09/24/17 09/24/17 07:39 07:41 07:43 Temperature Pulse Rate Respiratory Rate Blood Pressure 129/81 129/81 129/81 O2 Sat by Pulse 99 97 96 Oximetry 09/24/17 09/24/17 09/24/17 07:45 07:46 07:47 Temperature Pulse Rate Respiratory Rate Blood Pressure 128/60 128/60 128/60 O2 Sat by Pulse 98 97 98 Oximetry 09/24/17 09/24/17 09/24/17 07:49 07:51 07:53 Temperature Pulse Rate Respiratory Rate Blood Pressure 128/60 128/60 128/60 O2 Sat by Pulse 96 98 97 Oximetry 09/24/17 09/24/17 09/24/17 07:55 07:57 07:59 Temperature Pulse Rate Respiratory Rate Blood Pressure 128/60 128/60 128/60 O2 Sat by Pulse 99 95 99 Oximetry 09/24/17 09/24/17 09/24/17 08:00 08:01 08:03 Temperature Pulse Rate Respiratory Rate Blood Pressure 109/59 109/59 109/59 O2 Sat by Pulse 99 97 96 Oximetry 09/24/17 09/24/17 09/24/17 08:05 08:07 08:09 Temperature Pulse Rate Respiratory Rate Blood Pressure 109/59 109/59 109/59 O2 Sat by Pulse 96 96 95 Oximetry 09/24/17 09/24/17 09/24/17 08:11 08:13 08:15 Temperature Pulse Rate Respiratory Rate Blood Pressure 109/59 109/59 101/65 O2 Sat by Pulse 96 95 97 Oximetry 09/24/17 09/24/17 09/24/17 08:16 08:17 08:18 Temperature Pulse Rate Respiratory Rate Blood Pressure 101/65 101/65 101/65 O2 Sat by Pulse 97 99 94 Oximetry 09/24/17 09/24/17 09/24/17 08:19 08:21 08:22 Temperature Pulse Rate 74 73 Respiratory 17 16 Rate Blood Pressure 92/62 92/62 O2 Sat by Pulse 98 95 96 Oximetry 09/24/17 09/24/17 09/24/17 08:29 08:38 09:00 Temperature Pulse Rate 78 67 Respiratory 17 18 15 Rate Blood Pressure 114/78 114/75 O2 Sat by Pulse 95 95 98 Oximetry 09/24/17 09/24/17 09/24/17 10:00 11:00 11:36 Temperature Pulse Rate 77 69 64 Respiratory 16 16 Rate Blood Pressure 105/69 105/54 105/58 O2 Sat by Pulse 96 94 Oximetry KIANNA score - Kianna Score Age > 65: (0) No Aspirin use within the Past 7 Days: (0) No 3 or more CAD Risk Factors: (1) Yes 2 or more Angina events in past 24 hrs: (1) Yes Known CAD with more than 50% Stenosis: (0) No Elevated Cardiac Markers: (0) No ST Deviation Greater than 0.5mm: (0) No KIANNA Score: 2 ED Medical Decision Making - Lab Data Result diagrams: 09/24/17 00:57 09/24/17 00:57 - EKG Data -: EKG Interpreted by Md EKG shows normal: sinus rhythm, axis, intervals, QRS complexes, ST-T waves (TWI in V4-5) Rate: normal - Radiology Data Radiology results: image reviewed - Medical Decision Making 36-year-old male with past medical history of CVA him ACS, PE presents to the ER with chest pain. Patient sleeping when I walk in the room. EKG is nonischemic. The troponin is negative. Low risk for heart score. Chest x-ray is unremarkable. D-dimer is negative. Patient had a cardiac stress test earlier this year, which was unremarkable. Patient is cleared for discharge. - Differential Diagnosis PE, ACS, pneumothorax, pneumonia, GERD Critical care attestation.: If time is entered above; I have spent that time in minutes in the direct care of this critically ill patient, excluding procedure time. ED Disposition Clinical Impression: Chest pain Disposition: DC-01 TO HOME OR SELFCARE Is pt being admited?: No Condition: Stable Instructions: Chest Pain (ED) Additional Instructions: Please follow up with your family doctor for further evaluation of your chest pain. Referrals: PRIMARY CARE, [Primary Care Provider] - 3-5 Days
[2017-09-24 15:11] VITALS: BP 106/45
[2017-09-24] MEDS ORDERED: LIDOCAINE VISCOUS 2% PO ONE (15:24)
[2017-09-24] MEDS ORDERED: ALUM-MAG HYDROX-SIMETH 200-200-20MG/5ML PO ONE (15:24)
== END 2017-09-24 15:50 | disposition home or self-care (01) ==
LOC: ED 23:59
DX: R07.9 Chest pain, unspecified (principal); I11.0 Hypertensive heart disease with heart failure; I50.9 Heart failure, unspecified; I25.2 Old myocardial infarction; E11.9 Type 2 diabetes mellitus without complications; J45.909 Unspecified asthma, uncomplicated; F17.200 Nicotine dependence, unspecified, uncomplicated; Z86.73 Personal history of transient ischemic attack (TIA), and cerebral infarction without residual deficits; Z86.711 Personal history of pulmonary embolism; Z86.718 Personal history of other venous thrombosis and embolism; Z88.6 Allergy status to analgesic agent
CPT/HCPCS: 36415; 71046; 80048; 84484; 85025; 85379; 85610; 85730; 93005; 93010; 99284

== ENCOUNTER 2017-10-04 23:54 | Emergency (ER) | payer MEDICAID ==
[2017-10-05 01:05] LABS: BUN/Creatinine Ratio 9; Blood Urea Nitrogen 11 mg/dL (9-20); Hemolysis Index 1
[2017-10-05 01:40] LABS: Hematocrit 36.2 % (35.5-45.6); Hemoglobin 11.7 gm/dl (11.8-15.2); Mean Corpuscular HGB Conc 32 % (32-34); Mean Corpuscular Hemoglobin 26 pg (28-32); Mean Corpuscular Volume 81 fl (84-94); Platelet Count 219 K/mm3 (140-440); Red Blood Count 4.46 M/mm3 (3.65-5.03); Red Cell Distribution Width 16.9 % (13.2-15.2)
[2017-10-05] MEDS ORDERED: ULTRAM PO ONE (03:25)
[2017-10-05] MEDS ORDERED: TORADOL IM ONE (03:25)
--- NOTE | 2017-10-05 03:41 | Emergency Department Report ---
HPI - General Chief Complaint: Chest Pain Time Seen by Provider: 10/05/17 03:11 - HPI HPI: The patient is a 36-year-old male who presents for evaluation of chest pain. The patient reports 2 days of right-sided chest pain, radiating to the right arm , constant since onset, 10/10 in severity, sharp and throbbing in quality. The patient denies trauma to the chest, fever, cough, syncope, hemoptysis, unilateral leg swelling,recent immobilization, hx of recent cancer. ED Past Medical Hx - Past Medical History Hx Hypertension: Yes Hx CVA: Yes (TIAs, residiu. right side weakness) Hx Heart Attack/AMI: Yes (2 stents placed 2017) Hx Congestive Heart Failure: Yes Hx Diabetes: Yes Hx Deep Vein Thrombosis: Yes (R-leg) Hx Pulmonary Embolism: Yes Hx GERD: No Hx Liver Disease: No Hx Renal Disease: No Hx Sickle Cell Disease: No Hx Arthritis: No Hx Headaches / Migraines: No Hx Seizures: No Hx Kidney Stones: No Hx Psychiatric Treatment: No Hx Asthma: Yes Hx COPD: No Hx Tuberculosis: No Hx Dementia: No Hx HIV: No Additional medical history: Ulcers, a-fib. strong family hx of cardiac disorders - Surgical History Hx Coronary Stent: Yes (x2 2017) Hx Open Heart Surgery: No Hx Pacemaker: No Hx Internal Defibrillator: No Hx Cholecystectomy: No Hx Appendectomy: No Hx Breast Surgery: No Additional Surgical History: Stent placement - Social History Smoking Status: Current Every Day Smoker Substance Use Type: None - Medications Home Medications: Home Medications Medication Instructions Recorded Confirmed Last Taken Type traMADol [Ultram 50 MG tab] 50 mg PO Q6HR PRN #14 tablet 11/26/16 08/24/17 Unknown Rx Atorvastatin Calcium [Lipitor] 10 mg PO DAILY 08/24/17 08/24/17 Unknown History Famotidine [Pepcid] 20 mg PO BID 08/24/17 08/24/17 Unknown History Loperamide HCl [Anti-Diarrheal] 2 mg PO QID PRN 08/24/17 08/24/17 Unknown History Naproxen [Naprosyn] 500 mg PO BID 08/24/17 08/24/17 Unknown History Nitroglycerin [Nitrostat] 0.4 mg SL Q5M PRN 08/24/17 08/24/17 Unknown History Ondansetron [Zofran TAB] 4 mg PO Q8HR PRN 08/24/17 08/24/17 Unknown History Carvedilol [Coreg] 12.5 mg PO BID #60 tablet 08/25/17 Unknown Rx Lisinopril [Zestril TAB] 2.5 mg PO QDAY #30 tablet 08/25/17 Unknown Rx traMADol [Ultram 50 MG tab] 50 mg PO Q6HR PRN #10 tablet 10/05/17 Unknown Rx ED Review of Systems ROS: Stated complaint: CHEST PAIN Other details as noted in HPI Constitutional: denies: fever ENT: denies: throat or neck pain Respiratory: denies: cough, shortness of breath Cardiovascular: reprots chest pain Endocrine: denies unexplained weight loss or gain Gastrointestinal: denies: abdominal pain, nausea Genitourinary: denies: dysuria Musculoskeletal: denies: leg swelling Skin: denies: rash Neurological: denies: headache Hematological/Lymphatic: denies: easy bleeding or easy bruising Psych: denies sadness or hopelessness Physical Exam - Physical Exam Vital Signs: Vital Signs 10/05/17 00:18 Temperature 98.5 F Pulse Rate 93 H Respiratory 18 Rate Blood Pressure 153/87 O2 Sat by Pulse 97 Oximetry Physical Exam: General: well-nourished, well-developed, no acute distress Head: Normocephalic, atraumatic Eyes: normal sclera ENT: Mucous membranes are pink and moist Neck: trachea midline, neck supple, No neck stiffness, no cervical adenopathy Respiratory: Breath sounds equal bilaterally, no wheezing, rales, or rhonchi Cardio: S1 and S2 present, no murmurs, rubs, gallops, capillary refill is brisk Abdomen: Normoactive bowel sounds, soft abdomen, no rigidity, no guarding or rebound tenderness Chest WALL/Back: No tenderness to palpation of the chest wall, no CVA tenderness with percussion, pain is elicited with abduction and internal rotation of the right arm at the shoulder joint Musc: No pitting edema Skin: No rash Neuro: no facial drooping, normal speech Psych: Normal affect ED Course Vital Signs 10/05/17 00:18 Temperature 98.5 F Pulse Rate 93 H Respiratory 18 Rate Blood Pressure 153/87 O2 Sat by Pulse 97 Oximetry ED Medical Decision Making - Lab Data Result diagrams: 10/05/17 00:27 10/05/17 00:27 - Medical Decision Making The patient was seen and examined by myself. The patient is placed on a ekg monitor tech and continuous pulse ox. On initial evaluation, the patient was found to be in no distress. EKG was negative for findings suggestive of acute cardiac infarct. Labs and imaging are obtained. CThe patient is given an IM dose of Toradol for his pain. Medical records reports aspirin/Nsaids as an allergy, but the patient has received in NSAIDs on multiple previous visits without any allergic reaction. Chest x-ray is negative for pneumothorax, focal consolidation, pulmonary vascular congestion, pleural effusion, or other obvious acute cardiopulmonary disease process. Lab results were non-concerning including levels of troponin, WBC, hemoglobin, hematocrit, electrolytes, renal function. Medical records are reviewed and revealed that the patient received a stress test within the past 4- 5 months that was negative for ischemia. Additionally the patient's found to have negative d-dimer a little over one week ago, during ER evaluation of chest pain earlier this month. Critical care attestation.: If time is entered above; I have spent that time in minutes in the direct care of this critically ill patient, excluding procedure time. ED Disposition Clinical Impression: Acute chest pain Disposition: DC-01 TO HOME OR SELFCARE Is pt being admited?: No Does the pt Need Aspirin: No Condition: Stable Instructions: Chest Pain (ED), Costochondritis (ED) Referrals: PRIMARY CARE, [Primary Care Provider] - 3-5 Days Time of Disposition: 03:29
--- NOTE | 2017-10-05 03:48 | XRay Report ---
FINAL REPORT PROCEDURE: XR CHEST 1V AP TECHNIQUE: Chest radiograph anteroposterior view. CPT 36366 HISTORY: chest pain COMPARISON: 07/04/2017 FINDINGS: Heart: Normal. Mediastinum/Vessels: Normal. Lungs/Pleural space: Normal. Bony thorax: No acute osseous abnormality. Life support devices: None. IMPRESSION: No acute cardiopulmonary abnormality.
[2017-10-05 04:08] VITALS: BP 147/73
[2017-10-05 06:48] LABS: Anisocytosis 1+; Eosinophils % (Manual) 0 % (0.0-4.3); Ovalocytes 1+; Total Cells Counted 100
[2017-10-05 06:49] LABS: Hypochromasia 1+; Tear Drop Cells Few
== END 2017-10-05 04:07 | disposition home or self-care (01) ==
LOC: ED 23:54
DX: R07.9 Chest pain, unspecified (principal); I10 Essential (primary) hypertension; I25.2 Old myocardial infarction; I50.9 Heart failure, unspecified; E11.9 Type 2 diabetes mellitus without complications; F17.200 Nicotine dependence, unspecified, uncomplicated; J45.909 Unspecified asthma, uncomplicated; Z86.718 Personal history of other venous thrombosis and embolism; Z86.711 Personal history of pulmonary embolism; Z86.73 Personal history of transient ischemic attack (TIA), and cerebral infarction without residual deficits; Z95.5 Presence of coronary angioplasty implant and graft
CPT/HCPCS: 36415; 71045; 80048; 83880; 84484; 85007; 85025; 93005; 93010; 96372; 99284; J1885

== ENCOUNTER 2017-10-08 15:27 | Emergency (ER) | payer MEDICAID ==
[2017-10-08 16:25] LABS: Basophils % (Auto) 1.3 % (0.0-1.8); Eosinophils # (Auto) 0.1 K/mm3 (0.0-0.4); Hematocrit 34.2 % (35.5-45.6); Hemoglobin 11.1 gm/dl (11.8-15.2); Lymphocytes # (Auto) 0.9 K/mm3 (1.2-5.4); Lymphocytes % (Auto) 30.2 % (13.4-35.0); Mean Corpuscular HGB Conc 32 % (32-34); Mean Corpuscular Hemoglobin 26 pg (28-32); Mean Corpuscular Volume 80 fl (84-94); Monocytes # (Auto) 0.4 K/mm3 (0.0-0.8); Monocytes % (Auto) 14.4 % (0.0-7.3); Platelet Count 203 K/mm3 (140-440); Red Blood Count 4.25 M/mm3 (3.65-5.03); Red Cell Distribution Width 16.8 % (13.2-15.2)
[2017-10-08 16:40] LABS: BUN/Creatinine Ratio 10; Blood Urea Nitrogen 12 mg/dL (9-20); Calcium 8.7 mg/dL (8.4-10.2); Hemolysis Index 1
--- NOTE | 2017-10-09 02:46 | XRay Report ---
FINAL REPORT PROCEDURE: XR CHEST 1V AP TECHNIQUE: Chest radiograph anteroposterior view. CPT 63721 HISTORY: chest pain COMPARISON: 10/05/2017 FINDINGS: Heart: Normal. Mediastinum/Vessels: Normal. Lungs/Pleural space: Normal. Bony thorax: No acute osseous abnormality. Life support devices: None. IMPRESSION: No acute cardiopulmonary abnormality.
[2017-10-09 03:30] VITALS: BP 118/76
[2017-10-09] MEDS ORDERED: ULTRAM PO ONE (03:58)
--- NOTE | 2017-10-09 04:04 | Emergency Department Report ---
HPI - General Chief Complaint: Chest Pain Time Seen by Provider: 10/09/17 02:24 - HPI HPI: The patient is a 36-year-old male who presents for evaluation of chest pain. The patient reports 1 day of left-sided chest pain, radiating to the right arm, constant since onset, 10/10 in severity, sharp in quality, exacerbated with movement of the right arm. The patient denies trauma to the chest, fever, cough , syncope, hemoptysis, unilateral leg swelling,recent immobilization, hx of recent cancer. ED Past Medical Hx - Past Medical History Hx Hypertension: Yes Hx CVA: Yes (TIAs, residiu. right side weakness) Hx Heart Attack/AMI: Yes (2 stents placed 2017) Hx Congestive Heart Failure: Yes Hx Diabetes: Yes Hx Deep Vein Thrombosis: Yes (R-leg) Hx Pulmonary Embolism: Yes Hx GERD: No Hx Liver Disease: No Hx Renal Disease: No Hx Sickle Cell Disease: No Hx Arthritis: No Hx Headaches / Migraines: No Hx Seizures: No Hx Kidney Stones: No Hx Psychiatric Treatment: No Hx Asthma: Yes Hx COPD: No Hx Tuberculosis: No Hx Dementia: No Hx HIV: No Additional medical history: Ulcers, a-fib. strong family hx of cardiac disorders - Surgical History Hx Coronary Stent: Yes (x2 2017) Hx Open Heart Surgery: No Hx Pacemaker: No Hx Internal Defibrillator: No Hx Cholecystectomy: No Hx Appendectomy: No Hx Breast Surgery: No Additional Surgical History: Stent placement - Social History Smoking Status: Current Every Day Smoker Substance Use Type: Alcohol - Medications Home Medications: Home Medications Medication Instructions Recorded Confirmed Last Taken Type traMADol [Ultram 50 MG tab] 50 mg PO Q6HR PRN #14 tablet 11/26/16 08/24/17 Unknown Rx Atorvastatin Calcium [Lipitor] 10 mg PO DAILY 08/24/17 08/24/17 Unknown History Famotidine [Pepcid] 20 mg PO BID 08/24/17 08/24/17 Unknown History Loperamide HCl [Anti-Diarrheal] 2 mg PO QID PRN 08/24/17 08/24/17 Unknown History Naproxen [Naprosyn] 500 mg PO BID 08/24/17 08/24/17 Unknown History Nitroglycerin [Nitrostat] 0.4 mg SL Q5M PRN 08/24/17 08/24/17 Unknown History Ondansetron [Zofran TAB] 4 mg PO Q8HR PRN 08/24/17 08/24/17 Unknown History Carvedilol [Coreg] 12.5 mg PO BID #60 tablet 08/25/17 Unknown Rx Lisinopril [Zestril TAB] 2.5 mg PO QDAY #30 tablet 08/25/17 Unknown Rx traMADol [Ultram 50 MG tab] 50 mg PO Q6HR PRN #10 tablet 10/05/17 Unknown Rx traMADol [Ultram 50 MG tab] 50 mg PO Q6HR PRN #10 tablet 10/09/17 Unknown Rx ED Review of Systems ROS: Stated complaint: CHEST PAINS Other details as noted in HPI Constitutional: denies: fever ENT: denies: throat or neck pain Respiratory: denies: cough, shortness of breath Cardiovascular: reports: chest pain Endocrine: denies unexplained weight loss or gain Gastrointestinal: denies: abdominal pain, nausea Genitourinary: denies: dysuria Musculoskeletal: denies: leg swelling Skin: denies: rash Neurological: denies: headache Hematological/Lymphatic: denies: easy bleeding or easy bruising Psych: denies sadness or hopelessness Physical Exam - Physical Exam Vital Signs: Vital Signs 10/08/17 10/08/17 10/09/17 15:52 22:38 02:23 Temperature 98.6 F 98 F Pulse Rate 86 84 75 Respiratory 18 20 24 Rate Blood Pressure 143/92 152/98 Blood Pressure 141/90 [Left] O2 Sat by Pulse 99 97 Oximetry 10/09/17 03:01 Temperature Pulse Rate 73 Respiratory 15 Rate Blood Pressure 118/76 Blood Pressure [Left] O2 Sat by Pulse Oximetry Physical Exam: General: well-nourished, well-developed, no acute distress Head: Normocephalic, atraumatic Eyes: normal sclera ENT: Mucous membranes are pink and moist Neck: trachea midline, neck supple, No neck stiffness, no cervical adenopathy Respiratory: Breath sounds equal bilaterally, no wheezing, rales, or rhonchi Cardio: S1 and S2 present, no murmurs, rubs, gallops, capillary refill is brisk Abdomen: Normoactive bowel sounds, soft abdomen, no rigidity, no guarding or rebound tenderness Chest WALL/Back: No tenderness to palpation of the chest wall, chest pain is elicited with aaduction or abduction of the left or right arm Musc: No pitting edema Skin: No rash Neuro: no facial drooping, normal speech Psych: Normal affect ED Course Vital Signs 10/08/17 10/08/17 10/09/17 15:52 22:38 02:23 Temperature 98.6 F 98 F Pulse Rate 86 84 75 Respiratory 18 20 24 Rate Blood Pressure 143/92 152/98 Blood Pressure 141/90 [Left] O2 Sat by Pulse 99 97 Oximetry 10/09/17 03:01 Temperature Pulse Rate 73 Respiratory 15 Rate Blood Pressure 118/76 Blood Pressure [Left] O2 Sat by Pulse Oximetry ED Medical Decision Making - Lab Data Result diagrams: 10/08/17 15:59 10/08/17 15:59 - Medical Decision Making The patient was seen and examined by myself. The patient is placed on a monitor and storage bin tender and continuous pulse ox. On initial evaluation, the patient was found to be in no distress. EKG was negative for findings suggestive of acute cardiac infarct. Labs and imaging are obtained. The patient is given a tablet of trauma for his pain. Chest x-ray is negative for pneumothorax, focal consolidation, pulmonary vascular congestion, pleural effusion, or other obvious acute cardiopulmonary disease process. Lab results were non-concerning including levels of troponin, WBC, hemoglobin, hematocrit, electrolytes, renal function. The patient was reevaluated and reported that their symptoms were markedly improved. As the patient has a KIANNA risk score less than 2, and a well 's score less than 2, the patient is at low risk of ACS or pulmonary emboli etiology of their symptoms. The patient is stable for discharge with outpatient follow-up. The patient is given follow-up and return instructions. The patient expressed understanding and agreed with the plan. The patient is discharged in stable condition. Critical care attestation.: If time is entered above; I have spent that time in minutes in the direct care of this critically ill patient, excluding procedure time. ED Disposition Clinical Impression: Acute chest pain, Atypical chest pain Disposition: - TO HOME OR SELFCARE Is pt being admited?: No Does the pt Need Aspirin: No Condition: Stable Instructions: Chest Pain (ED), Costochondritis (ED) Referrals: PRIMARY CARE, [Primary Care Provider] - 3-5 Days Time of Disposition: 03:59 Heart Score - HEART Score History: Slightly suspicious EKG: Normal Age: < 45 Risk factors: No known risk factors Troponin: < normal limit HEART Score: 0 - Critical Actions Critical Actions: 0-3 pts:0.9-1.7%risk of adverse cardiac event.Candidate for discharge KIANNA score - Kianna Score Age > 65: (0) No Aspirin use within the Past 7 Days: (0) No 3 or more CAD Risk Factors: (1) Yes 2 or more Angina events in past 24 hrs: (0) No Known CAD with more than 50% Stenosis: (0) No Elevated Cardiac Markers: (0) No ST Deviation Greater than 0.5mm: (0) No KIANNA Score: 1
== END 2017-10-09 05:17 | disposition home or self-care (01) ==
LOC: ED 15:27
DX: R07.89 Other chest pain (principal); I10 Essential (primary) hypertension; E11.9 Type 2 diabetes mellitus without complications; J45.909 Unspecified asthma, uncomplicated; F17.200 Nicotine dependence, unspecified, uncomplicated
CPT/HCPCS: 36415; 71045; 80048; 84484; 85025; 93005; 93010

== ENCOUNTER 2017-10-16 00:33 | Emergency (ER) | payer MEDICAID ==
[2017-10-16 04:30] LABS: Hematocrit 34.8 % (35.5-45.6); Hemoglobin 11.3 gm/dl (11.8-15.2); Mean Corpuscular HGB Conc 33 % (32-34); Mean Corpuscular Hemoglobin 26 pg (28-32); Mean Corpuscular Volume 80 fl (84-94); Platelet Count 221 K/mm3 (140-440); Red Blood Count 4.33 M/mm3 (3.65-5.03); Red Cell Distribution Width 16.8 % (13.2-15.2)
[2017-10-16 04:42] LABS: INR 1.09 (0.87-1.13)
[2017-10-16 04:43] LABS: Partial Thromboplastin Time 24.3 Sec. (24.2-36.6)
--- NOTE | 2017-10-16 04:49 | XRay Report ---
FINAL REPORT EXAM: XR CHEST ROUTINE 2V HISTORY: Shortness of breath TECHNIQUE: PA and lateral views of the chest were obtained and compared to the study of 10/09/2017. N FINDINGS: The heart size and mediastinum appear normal. The lungs are clear. There is no evidence of congestion or effusion. The skeletal structures are well-maintained. IMPRESSION: No active chest disease.
[2017-10-16 05:07] LABS: BUN/Creatinine Ratio 12; Blood Urea Nitrogen 14 mg/dL (9-20); Calcium 9.5 mg/dL (8.4-10.2); Hemolysis Index 1
[2017-10-16 05:31] LABS: Basophils % (Manual) 0 % (0.0-1.8); Total Cells Counted 100
[2017-10-16 05:32] LABS: Anisocytosis 1+; Ovalocytes 1+
[2017-10-16] MEDS ORDERED: NACL 0.9% 500 ML 500 ML IV ONE (17:11)
[2017-10-16] MEDS ORDERED: SUBLIMAZE IV ONE (17:11)
[2017-10-16] MEDS ORDERED: XYLOCAINE CARDIAC IV ONE (17:11)
--- NOTE | 2017-10-16 17:12 | Emergency Department Report ---
ED Chest Pain HPI - General Chief Complaint: Chest Pain Stated Complaint: CP Time Seen by Provider: 10/16/17 16:17 Source: patient, RN notes reviewed, old records reviewed Mode of arrival: Ambulatory Limitations: No Limitations - History of Present Illness Initial Comments: This is a 36-year-old male. I have evaluated him in the past. Past medical history includes heart disease, had a cardiac catheterization in 2013 demonstrated normal coronary arteries, recent multiple hospital evaluations for chest pain, including August 24, September 24, October 05, October 09. Patient had a negative nuclear stress test at this hospital earlier on the 07/04/2017 Today, the patient presents with his typical constellation of right-sided chest wall pain, right shoulder pain, right neck pain. It has been present for over 24 hours. It is intermittent. He denies vomiting, diaphoresis. There is chronic shortness of breath. Patient reports a distant history of left lower extremity DVT, pulmonary embolus. He reports that he has not been on Coumadin therapy. He thinks his primary care doctor took him off of it. He denies recent road trips, recent hospitalizations within the past 3 weeks, posterior leg pain, posterior leg swelling. The chest pain he describes today is similar to prior episodes of chest pain documented at this hospital multiple times on previous evaluations. MD Complaint: chest pain -: Gradual Pain Location: right chest Pain Radiation: other (right arm, right neck, right chest wall.) Severity scale (0 -10): 10 Quality: aching Improves With: medication-other, movement, rest Worsens With: palpation re: denies: nausea, vomting, diaphoresis, sense of impending doom Aspirin use within the Past 7 Days: (0) No - Related Data On Oral Contraceptives: No Home Medications Medication Instructions Recorded Confirmed Last Taken Atorvastatin Calcium [Lipitor] 10 mg PO DAILY 08/24/17 08/24/17 Unknown Famotidine [Pepcid] 20 mg PO BID 08/24/17 08/24/17 Unknown Loperamide HCl [Anti-Diarrheal] 2 mg PO QID PRN 08/24/17 08/24/17 Unknown Naproxen [Naprosyn] 500 mg PO BID 08/24/17 08/24/17 Unknown Nitroglycerin [Nitrostat] 0.4 mg SL Q5M PRN 08/24/17 08/24/17 Unknown Ondansetron [Zofran TAB] 4 mg PO Q8HR PRN 08/24/17 08/24/17 Unknown Previous Rx's Medication Instructions Recorded Last Taken Type traMADol [Ultram 50 MG tab] 50 mg PO Q6HR PRN #14 tablet 11/26/16 Unknown Rx Carvedilol [Coreg] 12.5 mg PO BID #60 tablet 08/25/17 Unknown Rx Lisinopril [Zestril TAB] 2.5 mg PO QDAY #30 tablet 08/25/17 Unknown Rx traMADol [Ultram 50 MG tab] 50 mg PO Q6HR PRN #10 tablet 10/05/17 Unknown Rx traMADol [Ultram 50 MG tab] 50 mg PO Q6HR PRN #10 tablet 10/09/17 Unknown Rx Allergies Allergy/AdvReac Type Severity Reaction Status Date / Time aspirin Allergy Hives Verified 01/14/16 02:43 Heart Score - HEART Score History: Slightly suspicious EKG: Non-specific Age: < 45 Risk factors: > 3 risk factors or hx of atherosclerotic disease Troponin: < normal limit HEART Score: 3 - Critical Actions Critical Actions: 0-3 pts:0.9-1.7%risk of adverse cardiac event.Candidate for discharge ED Review of Systems ROS: Stated complaint: CP Other details as noted in HPI Comment: All other systems reviewed and negative ED Past Medical Hx - Past Medical History Previous Medical History?: Yes Hx Hypertension: Yes Hx CVA: Yes (TIAs, residiu. right side weakness) Hx Heart Attack/AMI: Yes (2 stents placed 2016) Hx Congestive Heart Failure: Yes Hx Diabetes: Yes Hx Deep Vein Thrombosis: Yes (R-leg) Hx Pulmonary Embolism: Yes Hx GERD: No Hx Liver Disease: No Hx Renal Disease: No Hx Sickle Cell Disease: No Hx Arthritis: No Hx Headaches / Migraines: No Hx Seizures: No Hx Kidney Stones: No Hx Psychiatric Treatment: No Hx Asthma: Yes Hx COPD: No Hx Tuberculosis: No Hx Dementia: No Hx HIV: No Additional medical history: Ulcers, a-fib. strong family hx of cardiac disorders - Surgical History Hx Coronary Stent: Yes (x2 2017) Hx Open Heart Surgery: No Hx Pacemaker: No Hx Internal Defibrillator: No Hx Cholecystectomy: No Hx Appendectomy: No Hx Breast Surgery: No Additional Surgical History: Stent placement - Social History Smoking Status: Current Some Day Smoker - Medications Home Medications: Home Medications Medication Instructions Recorded Confirmed Last Taken Type traMADol [Ultram 50 MG tab] 50 mg PO Q6HR PRN #14 tablet 11/26/16 08/24/17 Unknown Rx Atorvastatin Calcium [Lipitor] 10 mg PO DAILY 08/24/17 08/24/17 Unknown History Famotidine [Pepcid] 20 mg PO BID 08/24/17 08/24/17 Unknown History Loperamide HCl [Anti-Diarrheal] 2 mg PO QID PRN 08/24/17 08/24/17 Unknown History Naproxen [Naprosyn] 500 mg PO BID 08/24/17 08/24/17 Unknown History Nitroglycerin [Nitrostat] 0.4 mg SL Q5M PRN 08/24/17 08/24/17 Unknown History Ondansetron [Zofran TAB] 4 mg PO Q8HR PRN 08/24/17 08/24/17 Unknown History Carvedilol [Coreg] 12.5 mg PO BID #60 tablet 08/25/17 Unknown Rx Lisinopril [Zestril TAB] 2.5 mg PO QDAY #30 tablet 08/25/17 Unknown Rx traMADol [Ultram 50 MG tab] 50 mg PO Q6HR PRN #10 tablet 10/05/17 Unknown Rx traMADol [Ultram 50 MG tab] 50 mg PO Q6HR PRN #10 tablet 10/09/17 Unknown Rx ED Physical Exam - General Limitations: No Limitations General appearance: alert, in no apparent distress - Head Head exam: Present: atraumatic, normocephalic - Eye Eye exam: Present: normal appearance, EOMI. Absent: nystagmus - ENT ENT exam: Present: normal exam, normal orophraynx, mucous membranes moist, normal external ear exam - Neck Neck exam: Present: normal inspection, full ROM - Respiratory Respiratory exam: Present: normal lung sounds bilaterally, chest wall tenderness. Absent: respiratory distress - Cardiovascular Cardiovascular Exam: Present: regular rate, normal rhythm, normal heart sounds. Absent: bradycardia, tachycardia, irregular rhythm, systolic murmur, diastolic murmur, rubs, gallop - GI/Abdominal GI/Abdominal exam: Present: soft, normal bowel sounds. Absent: distended, tenderness, guarding, rebound, rigid, pulsatile mass - Rectal Rectal exam: Present: deferred - Extremities Exam Extremities exam: Present: normal inspection, full ROM, tenderness (there is reproducible right-sided shoulder tenderness. There is no redness, pus or streaking. The compartments are soft. 2+ pulses noted in the bilateral upper, lower extremities. There is no redness, pus or streaking.), normal capillary refill, other (there is no palpable cord. There is a negative Homans sign.). Absent: pedal edema, joint swelling, calf tenderness - Back Exam Back exam: Present: normal inspection, full ROM. Absent: paraspinal tenderness , vertebral tenderness - Neurological Exam Neurological exam: Present: alert, oriented X3, CN II-XII intact, normal gait, other (Extraocular movements intact. Tongue midline. No facial droop. Facial sensation intact to light touch in the V1, V2, V3 distribution bilaterally. 5 and 5 strength in 4 extremities.. Sensation is intact to light touch in 4 extremities.). Absent: motor sensory deficit - Psychiatric Psychiatric exam: Present: normal affect, normal mood - Skin Skin exam: Present: warm, dry, intact, normal color. Absent: rash ED Course Vital Signs 10/16/17 10/16/17 10/16/17 00:30 03:43 06:04 Temperature 98.9 F 98.9 F 98.5 F Pulse Rate 111 H 108 H 87 Respiratory 18 18 18 Rate Blood Pressure 137/92 137/92 118/78 O2 Sat by Pulse 97 98 97 Oximetry 10/16/17 10/16/17 10/16/17 15:00 15:15 15:31 Temperature Pulse Rate 86 92 H 76 Respiratory 16 15 16 Rate Blood Pressure O2 Sat by Pulse Oximetry 10/16/17 10/16/17 15:45 16:01 Temperature Pulse Rate 74 76 Respiratory 14 17 Rate Blood Pressure O2 Sat by Pulse Oximetry CRISPIN score - Crispin Score Age > 65: (0) No Aspirin use within the Past 7 Days: (0) No 3 or more CAD Risk Factors: (1) Yes 2 or more Angina events in past 24 hrs: (0) No Known CAD with more than 50% Stenosis: (0) No Elevated Cardiac Markers: (0) No ST Deviation Greater than 0.5mm: (0) No CRISPIN Score: 1 ED Medical Decision Making - Lab Data Result diagrams: 10/16/17 04:12 10/16/17 04:12 Vital Signs 10/16/17 10/16/17 10/16/17 00:30 03:43 06:04 Temperature 98.9 F 98.9 F 98.5 F Pulse Rate 111 H 108 H 87 Respiratory 18 18 18 Rate Blood Pressure 137/92 137/92 118/78 O2 Sat by Pulse 97 98 97 Oximetry 10/16/17 10/16/17 10/16/17 15:00 15:15 15:31 Temperature Pulse Rate 86 92 H 76 Respiratory 16 15 16 Rate Blood Pressure O2 Sat by Pulse Oximetry 10/16/17 10/16/17 15:45 16:01 Temperature Pulse Rate 74 76 Respiratory 14 17 Rate Blood Pressure O2 Sat by Pulse Oximetry Lab Results 10/16/17 10/16/17 10/16/17 Range/Units 04:12 04:12 04:12 WBC 3.8 L (4.5-11.0) K/mm3 RBC 4.33 (3.65-5.03) M/mm3 Hgb 11.3 L (11.8-15.2) gm/dl Hct 34.8 L (35.5-45.6) % MCV 80 L (84-94) fl MCH 26 L (28-32) pg MCHC 33 (32-34) % RDW 16.8 H (13.2-15.2) % Plt Count 221 (140-440) K/mm3 Dukes % (Auto) Curatorial Specialist Add Manual Diff Complete Total Counted 100 Seg Neuts % (Manual) 49.0 (40.0-70.0) % Band Neutrophils % 1.0 % Lymphocytes % (Manual) 27.0 (13.4-35.0) % Reactive Lymphs % (Man) 0 % Monocytes % (Manual) 19.0 H (0.0-7.3) % Eosinophils % (Manual) 3.0 (0.0-4.3) % Basophils % (Manual) 0 (0.0-1.8) % Metamyelocytes % 1.0 % Myelocytes % 0 % Promyelocytes % 0 % Blast Cells % 0 % Nucleated RBC % Not Reportable Seg Neutrophils # Man 1.9 (1.8-7.7) K/mm3 Band Neutrophils # 0.0 K/mm3 Lymphocytes # (Manual) 1.0 L (1.2-5.4) K/mm3 Abs React Lymphs (Man) 0.0 K/mm3 Monocytes # (Manual) 0.7 (0.0-0.8) K/mm3 Eosinophils # (Manual) 0.1 (0.0-0.4) K/mm3 Basophils # (Manual) 0.0 (0.0-0.1) K/mm3 Metamyelocytes # 0.0 K/mm3 Myelocytes # 0.0 K/mm3 Promyelocytes # 0.0 K/mm3 Blast Cells # 0.0 K/mm3 WBC Morphology Not Reportable Hypersegmented Neuts Not Reportable Hyposegmented Neuts Not Reportable Hypogranular Neuts Not Reportable Smudge Cells Not Reportable Toxic Granulation Not Reportable Toxic Vacuolation Not Reportable Dohle Bodies Not Reportable Pelger-Huet Anomaly Not Reportable Clair Rods Not Reportable Platelet Estimate Appears normal Clumped Platelets Not Reportable Plt Clumps, EDTA Not Reportable Large Platelets Not Reportable Giant Platelets Not Reportable Platelet Satelliting Not Reportable Plt Morphology Comment Not Reportable RBC Morphology Not Reportable Dimorphic RBCs Not Reportable Polychromasia Not Reportable Hypochromasia Not Reportable Poikilocytosis Not Reportable Anisocytosis 1+ Microcytosis Not Reportable Macrocytosis Not Reportable Spherocytes Not Reportable Pappenheimer Bodies Not Reportable Sickle Cells Not Reportable Target Cells Not Reportable Tear Drop Cells Not Reportable Ovalocytes 1+ Helmet Cells Not Reportable [place] Bodies Not Reportable Amity Rings Not Reportable Melo Cells Not Reportable Bite Cells Not Reportable Crenated Cell Not Reportable Elliptocytes Few Acanthocytes (Spur) Not Reportable Rouleaux Not Reportable Hemoglobin C Crystals Not Reportable Schistocytes Not Reportable Malaria parasites Not Reportable Dale Bodies Not Reportable Hem Pathologist Commnt No PT 14.7 (12.2-14.9) Sec. INR 1.09 (0.87-1.13) APTT 24.3 (24.2-36.6) Sec. D-Dimer (0-234) ng/mlDDU Sodium 143 (137-145) mmol/L Potassium 3.9 (3.6-5.0) mmol/L Chloride 105.3 (98-107) mmol/L Carbon Dioxide 27 (22-30) mmol/L Anion Gap 15 mmol/L BUN 14 (9-20) mg/dL Creatinine 1.2 (0.8-1.5) mg/dL Estimated GFR > 60 ml/min BUN/Creatinine Ratio 12 % Glucose 117 H (75-100) mg/dL POC Glucose (70-105) Calcium 9.5 (8.4-10.2) mg/dL Troponin T < 0.010 (0.00-0.029) ng/mL 10/16/17 10/16/17 10/16/17 Range/Units 08:22 14:35 16:14 WBC (4.5-11.0) K/mm3 RBC (3.65-5.03) M/mm3 Hgb (11.8-15.2) gm/dl Hct (35.5-45.6) % MCV (84-94) fl MCH (28-32) pg MCHC (32-34) % RDW (13.2-15.2) % Plt Count (140-440) K/mm3 Dukes % (Auto) Add Manual Diff Total Counted Seg Neuts % (Manual) (40.0-70.0) % Band Neutrophils % % Lymphocytes % (Manual) (13.4-35.0) % Reactive Lymphs % (Man) % Monocytes % (Manual) (0.0-7.3) % Eosinophils % (Manual) (0.0-4.3) % Basophils % (Manual) (0.0-1.8) % Metamyelocytes % % Myelocytes % % Promyelocytes % % Blast Cells % % Nucleated RBC % Seg Neutrophils # Man (1.8-7.7) K/mm3 Band Neutrophils # K/mm3 Lymphocytes # (Manual) (1.2-5.4) K/mm3 Abs React Lymphs (Man) K/mm3 Monocytes # (Manual) (0.0-0.8) K/mm3 Eosinophils # (Manual) (0.0-0.4) K/mm3 Basophils # (Manual) (0.0-0.1) K/mm3 Metamyelocytes # K/mm3 Myelocytes # K/mm3 Promyelocytes # K/mm3 Blast Cells # K/mm3 WBC Morphology Hypersegmented Neuts Hyposegmented Neuts Hypogranular Neuts Smudge Cells Toxic Granulation Toxic Vacuolation Dohle Bodies Pelger-Huet Anomaly Clair Rods Platelet Estimate Clumped Platelets Plt Clumps, EDTA Large Platelets Giant Platelets Platelet Satelliting Plt Morphology Comment RBC Morphology Dimorphic RBCs Polychromasia Hypochromasia Poikilocytosis Anisocytosis Microcytosis Macrocytosis Spherocytes Pappenheimer Bodies Sickle Cells Target Cells Tear Drop Cells Ovalocytes Helmet Cells [place] Bodies Amity Rings Melo Cells Bite Cells Crenated Cell Elliptocytes Acanthocytes (Spur) Rouleaux Hemoglobin C Crystals Schistocytes Malaria parasites Dale Bodies Hem Pathologist Commnt PT (12.2-14.9) Sec. INR (0.87-1.13) APTT (24.2-36.6) Sec. D-Dimer (0-234) ng/mlDDU Sodium (137-145) mmol/L Potassium (3.6-5.0) mmol/L Chloride (98-107) mmol/L Carbon Dioxide (22-30) mmol/L Anion Gap mmol/L BUN (9-20) mg/dL Creatinine (0.8-1.5) mg/dL Estimated GFR ml/min BUN/Creatinine Ratio % Glucose (75-100) mg/dL POC Glucose 82 (70-105) Calcium (8.4-10.2) mg/dL Troponin T < 0.010 < 0.010 (0.00-0.029) ng/mL 10/16/17 Range/Units 17:44 WBC (4.5-11.0) K/mm3 RBC (3.65-5.03) M/mm3 Hgb (11.8-15.2) gm/dl Hct (35.5-45.6) % MCV (84-94) fl MCH (28-32) pg MCHC (32-34) % RDW (13.2-15.2) % Plt Count (140-440) K/mm3 Dukes % (Auto) Add Manual Diff Total Counted Seg Neuts % (Manual) (40.0-70.0) % Band Neutrophils % % Lymphocytes % (Manual) (13.4-35.0) % Reactive Lymphs % (Man) % Monocytes % (Manual) (0.0-7.3) % Eosinophils % (Manual) (0.0-4.3) % Basophils % (Manual) (0.0-1.8) % Metamyelocytes % % Myelocytes % % Promyelocytes % % Blast Cells % % Nucleated RBC % Seg Neutrophils # Man (1.8-7.7) K/mm3 Band Neutrophils # K/mm3 Lymphocytes # (Manual) (1.2-5.4) K/mm3 Abs React Lymphs (Man) K/mm3 Monocytes # (Manual) (0.0-0.8) K/mm3 Eosinophils # (Manual) (0.0-0.4) K/mm3 Basophils # (Manual) (0.0-0.1) K/mm3 Metamyelocytes # K/mm3 Myelocytes # K/mm3 Promyelocytes # K/mm3 Blast Cells # K/mm3 WBC Morphology Hypersegmented Neuts Hyposegmented Neuts Hypogranular Neuts Smudge Cells Toxic Granulation Toxic Vacuolation Dohle Bodies Pelger-Huet Anomaly Clair Rods Platelet Estimate Clumped Platelets Plt Clumps, EDTA Large Platelets Giant Platelets Platelet Satelliting Plt Morphology Comment RBC Morphology Dimorphic RBCs Polychromasia Hypochromasia Poikilocytosis Anisocytosis Microcytosis Macrocytosis Spherocytes Pappenheimer Bodies Sickle Cells Target Cells Tear Drop Cells Ovalocytes Helmet Cells [place] Bodies Amity Rings Melo Cells Bite Cells Crenated Cell Elliptocytes Acanthocytes (Spur) Rouleaux Hemoglobin C Crystals Schistocytes Malaria parasites Dale Bodies Hem Pathologist Commnt PT (12.2-14.9) Sec. INR (0.87-1.13) APTT (24.2-36.6) Sec. D-Dimer 135.00 (0-234) ng/mlDDU Sodium (137-145) mmol/L Potassium (3.6-5.0) mmol/L Chloride (98-107) mmol/L Carbon Dioxide (22-30) mmol/L Anion Gap mmol/L BUN (9-20) mg/dL Creatinine (0.8-1.5) mg/dL Estimated GFR ml/min BUN/Creatinine Ratio % Glucose (75-100) mg/dL POC Glucose (70-105) Calcium (8.4-10.2) mg/dL Troponin T (0.00-0.029) ng/mL - EKG Data -: EKG Interpreted by Nj - EKG Data 10/16/17 18:45 EKG #1 demonstrates sinus tachycardia, 101 bpm, normal axis, normal intervals, borderline left ventricular hypertrophy, nonspecific T-wave abnormality. Not a STEMI EKG #2 demonstrates sinus, 84 bpm, Q waves noted in the inferior leads, not a STEMI, unchanged from prior - Radiology Data Radiology results: report reviewed, image reviewed interpreted by me: X-ray the chest is negative for acute disease X-ray of the chest is negative for acute disease - Medical Decision Making Differential diagnosis, including but not limited to: Pulmonary embolus, pneumonia, acute coronary syndrome, costochondritis Assessment and plan: 36-year-old male with recurrent typical constellation of chest wall pain, reproducible arm pain and neck pain. Troponins negative 3, EKG unchanged 2, patient has had multiple evaluations for similar complaints in the past month and a half. He had a low probability nuclear stress test a few months ago. Multiple d-dimer have been negative. I have contacted the physician sales assistant entertainment and media covering for his primary cherry cutter, Ms. Ally Tong, covering for Dr. Friend, and she indicated the patient could follow-up in their office within the next 48 hours for outpatient evaluation. The patient is medically suitable to follow up as an outpatient at this time, given his lack of hypoxia, resolved tachycardia, stable vital signs, multiple visits for similar complaints, it is my opinion that the patient does not require further inpatient evaluation for either acute coronary syndrome or stratification or for pulmonary embolus. Critical care attestation.: If time is entered above; I have spent that time in minutes in the direct care of this critically ill patient, excluding procedure time. ED Disposition Clinical Impression: Chest pain Disposition: DC-01 TO HOME OR SELFCARE Is pt being admited?: No Does the pt Need Aspirin: No Condition: Good Instructions: Chest Pain (ED), Costochondritis (ED) Additional Instructions: Continue current outpatient medications. Contact your private cherry cutter first thing in the morning to arrange outpatient follow-up within the next 2-[address] Prado Address: [facility] [address] , [place] [address] return to the ER right away with new pain, worsened pain, migration of pain, fevers, chills, lethargy, irritability, projectile vomiting, change in mental status, confusion, inability to tolerate liquid feeds. I have personally contacted being Physician sales assistant entertainment and media covering for your primary cherry cutter, and they are amenable and agreeable to seeing you in the clinic the next couple days for your chest pain. Referrals: PRIMARY CARE, [Primary Care Provider] - 3-5 Days [facility] [Provider Group] - 3-5 Days [facility] [Provider Group] - 3-5 Days
[2017-10-16] MEDS ORDERED: NACL 0.9% 50 ML ONE (19:53)
[2017-10-16 20:30] VITALS: BP 128/86
== END 2017-10-16 20:25 | disposition home or self-care (01) ==
LOC: ED 00:33
DX: R07.89 Other chest pain (principal); I10 Essential (primary) hypertension; I25.2 Old myocardial infarction; E11.9 Type 2 diabetes mellitus without complications; I50.9 Heart failure, unspecified; J45.909 Unspecified asthma, uncomplicated; Z95.1 Presence of aortocoronary bypass graft; Z86.718 Personal history of other venous thrombosis and embolism; Z86.73 Personal history of transient ischemic attack (TIA), and cerebral infarction without residual deficits; Z72.0 Tobacco use; Z88.6 Allergy status to analgesic agent
CPT/HCPCS: 36415; 71046; 80048; 82962; 84484; 85007; 85025; 85379; 85610; 85730; 93005; 93010; 96374; 96375; 99284; J2001; J3010; J7040

== ENCOUNTER 2017-11-11 01:35 | Emergency (ER) | payer MEDICAID ==
[2017-11-11] MEDS ORDERED: NACL 0.9% 1000 ML 1,000 ML IV ONE (02:42)
[2017-11-11 03:41] LABS: Basophils # (Auto) 0.1 K/mm3 (0.0-0.1); Basophils % (Auto) 1.3 % (0.0-1.8); Eosinophils # (Auto) 0.2 K/mm3 (0.0-0.4); Hematocrit 37.5 % (35.5-45.6); Lymphocytes # (Auto) 1.1 K/mm3 (1.2-5.4); Lymphocytes % (Auto) 20.9 % (13.4-35.0); Mean Corpuscular HGB Conc 32 % (32-34); Mean Corpuscular Volume 80 fl (84-94); Monocytes # (Auto) 0.6 K/mm3 (0.0-0.8); Monocytes % (Auto) 10.5 % (0.0-7.3); Platelet Count 228 K/mm3 (140-440); Red Blood Count 4.66 M/mm3 (3.65-5.03); Red Cell Distribution Width 17.5 % (13.2-15.2)
[2017-11-11 03:47] LABS: Mean Corpuscular Hemoglobin 26 pg (28-32)
[2017-11-11 03:52] LABS: INR 1.07 (0.87-1.13); Partial Thromboplastin Time 24.4 Sec. (24.2-36.6)
[2017-11-11 04:00] LABS: BUN/Creatinine Ratio 12; Blood Urea Nitrogen 15 mg/dL (9-20); Calcium 9.5 mg/dL (8.4-10.2); Hemolysis Index 7
[2017-11-11 04:04] LABS: Alanine Aminotransferase 35 units/L (7-56); Albumin 4.6 g/dL (3.9-5); BUN/Creatinine Ratio 12; Blood Urea Nitrogen 15 mg/dL (9-20); Calcium 9.4 mg/dL (8.4-10.2); Hemolysis Index 3; Lipase 32 units/L (13-60)
[2017-11-11 04:19] VITALS: BP 123/69
--- NOTE | 2017-11-11 07:32 | Emergency Department Report ---
ED General Adult HPI - General Chief complaint: Chest Pain Stated complaint: CHEST & JAW PAIN Time Seen by Provider: 11/11/17 07:14 Source: patient Mode of arrival: Ambulatory Limitations: No Limitations - History of Present Illness Initial comments: Is a 36-year-old gentleman that presents with a plethora of symptoms. He states that when he lies down and sits up he has pain in his neck his trapezius area and both his arms. He states that sometimes he has some tingling. He's had these symptoms since Sunday. He appears to state they are new. However , he has had previous cervical CT examinations and CT the brain and lumbar spine in June that was normal. He's had recurrent atypical chest pain with a normal cardiac catheterization in 2013 and negative stress test 318. He does not emphasize his chest pain now. In fact he is resting comfortably without any distress. His pain appears to be clearly musculoskeletal changing on movement. He does not report any acute numbness weakness difficulty with bowel or bladder function. He states he has a disc in his lower back but his CT examination was negative done here in 2018. He also complains of blood in his stool. He has been previously seen by sports announcer. Patient does additionally state he seen a chiropractor for these complaints before. He states his primary care doctor can no longer see him due to changes in his Medicaid. 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 He has had an extensive workup at this facility for similar complaints. -: Gradual, year(s) Location: chest, back, upper extremity Radiation: non-radiation Quality: aching Consistency: intermittent Improves with: none Worsens with: movement Associated Symptoms: denies other symptoms Treatments Prior to Arrival: none - Related Data Home Medications Medication Instructions Recorded Confirmed Last Taken Atorvastatin Calcium [Lipitor] 10 mg PO DAILY 08/24/17 08/24/17 Unknown Famotidine [Pepcid] 20 mg PO BID 08/24/17 08/24/17 Unknown Loperamide HCl [Anti-Diarrheal] 2 mg PO QID PRN 08/24/17 08/24/17 Unknown Naproxen [Naprosyn] 500 mg PO BID 08/24/17 08/24/17 Unknown Nitroglycerin [Nitrostat] 0.4 mg SL Q5M PRN 08/24/17 08/24/17 Unknown Ondansetron [Zofran TAB] 4 mg PO Q8HR PRN 08/24/17 08/24/17 Unknown Previous Rx's Medication Instructions Recorded Last Taken Type traMADol [Ultram 50 MG tab] 50 mg PO Q6HR PRN #14 tablet 11/26/16 Unknown Rx Carvedilol [Coreg] 12.5 mg PO BID #60 tablet 08/25/17 Unknown Rx Lisinopril [Zestril TAB] 2.5 mg PO QDAY #30 tablet 08/25/17 Unknown Rx traMADol [Ultram 50 MG tab] 50 mg PO Q6HR PRN #10 tablet 10/05/17 Unknown Rx traMADol [Ultram 50 MG tab] 50 mg PO Q6HR PRN #10 tablet 10/09/17 Unknown Rx traMADol [Ultram 50 MG tab] 50 mg PO Q6HR PRN #14 tablet 11/11/17 Unknown Rx Allergies Allergy/AdvReac Type Severity Reaction Status Date / Time aspirin Allergy Hives Verified 11/11/17 02:38 ED Review of Systems ROS: Stated complaint: CHEST & JAW PAIN Other details as noted in HPI Constitutional: denies: chills, fever Eyes: denies: eye pain, eye discharge, vision change ENT: denies: ear pain, throat pain Respiratory: denies: cough, shortness of breath, wheezing Cardiovascular: chest pain (chronic intermittent chest pain not now). denies: palpitations Endocrine: no symptoms reported Gastrointestinal: denies: abdominal pain, nausea, diarrhea Genitourinary: denies: urgency, dysuria Musculoskeletal: as per HPI, back pain (mostly cervical but some upper thoracic discomfort). denies: joint swelling, arthralgia Skin: denies: rash, lesions Neurological: denies: headache, weakness, paresthesias Psychiatric: denies: anxiety, depression Hematological/Lymphatic: denies: easy bleeding, easy bruising ED Past Medical Hx - Past Medical History Hx Hypertension: Yes Hx CVA: Yes (TIAs, residiu. right side weakness) Hx Heart Attack/AMI: Yes (2 stents placed 2016) Hx Congestive Heart Failure: Yes Hx Diabetes: Yes Hx Deep Vein Thrombosis: Yes (R-leg) Hx Pulmonary Embolism: Yes Hx GERD: No Hx Liver Disease: No Hx Renal Disease: No Hx Sickle Cell Disease: No Hx Arthritis: No Hx Headaches / Migraines: No Hx Seizures: No Hx Kidney Stones: No Hx Psychiatric Treatment: No Hx Asthma: Yes Hx COPD: No Hx Tuberculosis: No Hx Dementia: No Hx HIV: No Additional medical history: Ulcers, a-fib. strong family hx of cardiac disorders - Surgical History Hx Coronary Stent: Yes (x2 2017) Hx Open Heart Surgery: No Hx Pacemaker: No Hx Internal Defibrillator: No Hx Cholecystectomy: No Hx Appendectomy: No Hx Breast Surgery: No Additional Surgical History: Stent placement - Social History Smoking Status: Current Every Day Smoker - Medications Home Medications: Home Medications Medication Instructions Recorded Confirmed Last Taken Type traMADol [Ultram 50 MG tab] 50 mg PO Q6HR PRN #14 tablet 11/26/16 08/24/17 Unknown Rx Atorvastatin Calcium [Lipitor] 10 mg PO DAILY 08/24/17 08/24/17 Unknown History Famotidine [Pepcid] 20 mg PO BID 08/24/17 08/24/17 Unknown History Loperamide HCl [Anti-Diarrheal] 2 mg PO QID PRN 08/24/17 08/24/17 Unknown History Naproxen [Naprosyn] 500 mg PO BID 08/24/17 08/24/17 Unknown History Nitroglycerin [Nitrostat] 0.4 mg SL Q5M PRN 08/24/17 08/24/17 Unknown History Ondansetron [Zofran TAB] 4 mg PO Q8HR PRN 08/24/17 08/24/17 Unknown History Carvedilol [Coreg] 12.5 mg PO BID #60 tablet 08/25/17 Unknown Rx Lisinopril [Zestril TAB] 2.5 mg PO QDAY #30 tablet 08/25/17 Unknown Rx traMADol [Ultram 50 MG tab] 50 mg PO Q6HR PRN #10 tablet 10/05/17 Unknown Rx traMADol [Ultram 50 MG tab] 50 mg PO Q6HR PRN #10 tablet 10/09/17 Unknown Rx traMADol [Ultram 50 MG tab] 50 mg PO Q6HR PRN #14 tablet 11/11/17 Unknown Rx ED Physical Exam - General Limitations: No Limitations General appearance: alert, in no apparent distress - Head Head exam: Present: atraumatic, normocephalic - Eye Eye exam: Present: normal appearance, PERRL, EOMI. Absent: scleral icterus - ENT ENT exam: Present: mucous membranes moist - Neck Neck exam: Present: normal inspection, full ROM, other (pain on palpation to the left trapezius area). Absent: tenderness (no paravertebral or vertebral tenderness), meningismus, lymphadenopathy, thyromegaly - Respiratory Respiratory exam: Present: normal lung sounds bilaterally. Absent: respiratory distress - Cardiovascular Cardiovascular Exam: Present: regular rate, normal rhythm. Absent: systolic murmur, diastolic murmur, rubs, gallop - GI/Abdominal GI/Abdominal exam: Present: soft, normal bowel sounds. Absent: distended, tenderness, guarding, rebound - Rectal Rectal exam: Present: deferred - Extremities Exam Extremities exam: Present: normal inspection, full ROM. Absent: tenderness, calf tenderness - Back Exam Back exam: Present: normal inspection. Absent: CVA tenderness (R), CVA tenderness (L), muscle spasm, paraspinal tenderness, vertebral tenderness - Neurological Exam Neurological exam: Present: alert, oriented X3, CN II-XII intact. Absent: motor sensory deficit - Psychiatric Psychiatric exam: Present: normal affect, normal mood - Skin Skin exam: Present: warm, dry, intact, normal color. Absent: rash ED Course Vital Signs 11/11/17 11/11/17 01:35 04:17 Temperature 99.3 F 98.9 F Pulse Rate 100 H 98 H Respiratory 18 12 Rate Blood Pressure 131/79 Blood Pressure 123/69 [Right] O2 Sat by Pulse 97 97 Oximetry - Reevaluation(s) Reevaluation #1: Patient is essentially asymptomatic and resting comfortably at this time.His complaints are clearly chronic. I do not see any indication of an acute coronary syndrome certainly. The history is strongly consistent with something musculoskeletal. He is appropriate for primary care follow-up. He should seek out follow-up with his GI doctor concerning his rectal bleeding. The complaint is certainly not acute and is not to either. 11/11/17 07:32 ED Medical Decision Making - Lab Data Result diagrams: 11/11/17 03:05 11/11/17 03:05 Laboratory Results - last 24 hr 11/11/17 11/11/17 11/11/17 03:05 03:05 03:05 WBC 5.4 RBC 4.66 Hgb 12.0 Hct 37.5 MCV 80 L MCH 26 L MCHC 32 RDW 17.5 H Plt Count 228 Lymph % (Auto) 20.9 Lyman % (Auto) 10.5 H Eos % (Auto) 4.0 Baso % (Auto) 1.3 Lymph # 1.1 L Lyman # 0.6 Eos # 0.2 Baso # 0.1 Seg Neutrophils % 63.3 Seg Neutrophils # 3.4 PT 14.5 INR 1.07 APTT 24.4 Sodium 144 Potassium 3.8 Chloride 103.0 Carbon Dioxide 26 Anion Gap 19 BUN 15 Creatinine 1.3 Estimated GFR > 60 BUN/Creatinine Ratio 12 Glucose 92 Calcium 9.5 Total Bilirubin AST ALT Alkaline Phosphatase Troponin T < 0.010 Total Protein Albumin Albumin/Globulin Ratio Lipase Blood Type Antibody Screen 11/11/17 11/11/17 11/11/17 03:05 03:05 05:47 WBC RBC Hgb Hct MCV MCH MCHC RDW Plt Count Lymph % (Auto) Lyman % (Auto) Eos % (Auto) Baso % (Auto) Lymph # Lyman # Eos # Baso # Seg Neutrophils % Seg Neutrophils # PT INR APTT Sodium 145 Potassium 4.0 Chloride 103.3 Carbon Dioxide 26 Anion Gap 20 BUN 15 Creatinine 1.3 Estimated GFR > 60 BUN/Creatinine Ratio 12 Glucose 89 Calcium 9.4 Total Bilirubin 0.20 AST 32 ALT 35 Alkaline Phosphatase 118 Troponin T < 0.010 Total Protein 7.5 Albumin 4.6 Albumin/Globulin Ratio 1.6 Lipase 32 Blood Type O POSITIVE Antibody Screen Negative - Radiology Data Radiology results: report reviewed (reviewed multiple prior studies) Critical care attestation.: If time is entered above; I have spent that time in minutes in the direct care of this critically ill patient, excluding procedure time. ED Disposition Clinical Impression: Rectal bleeding, Musculoskeletal pain Disposition: DC-01 TO HOME OR SELFCARE Is pt being admited?: No Does the pt Need Aspirin: No Condition: Stable Instructions: Musculoskeletal Pain (ED), Rectal Bleeding (ED) Additional Instructions: Return to the emergency department any acute problem or worsening symptoms. Otherwise she had been referred back to your usual GI doctor for your intermittent rectal bleeding. You may seek care at [facility] or call your Medicaid provider for a new primary care provider assignment. Prescriptions: traMADol [Ultram 50 MG tab] 50 mg PO Q6HR PRN #14 tablet PRN Reason: Pain Referrals: usual, sports announcer [Other] - 3-5 Days PRIMARY CARE, [Primary Care Provider] - 24 Hours [facility] [Provider Group] - 2-3 Days Time of Disposition: 07:35
== END 2017-11-11 07:45 | disposition home or self-care (01) ==
LOC: ED 01:35
DX: K62.5 Hemorrhage of anus and rectum (principal); M79.1 Myalgia; I11.0 Hypertensive heart disease with heart failure; I50.9 Heart failure, unspecified; E11.9 Type 2 diabetes mellitus without complications; J45.909 Unspecified asthma, uncomplicated; F17.200 Nicotine dependence, unspecified, uncomplicated; Z86.73 Personal history of transient ischemic attack (TIA), and cerebral infarction without residual deficits; Z86.718 Personal history of other venous thrombosis and embolism
CPT/HCPCS: 36415; 80048; 80053; 83690; 84484; 85025; 85610; 85730; 86850; 86900; 86901; 93005; 93010

== ENCOUNTER 2017-12-07 19:47 | Emergency (ER) | payer MEDICAID ==
[2017-12-07 21:02] VITALS: BP 123/71
== END 2017-12-07 21:00 | disposition left against medical advice (07) ==
LOC: ED 19:47
DX: R63.0 Anorexia (principal); Z53.21 Procedure and treatment not carried out due to patient leaving prior to being seen by health care provider
CPT/HCPCS: 87116; 87430

== ENCOUNTER 2017-12-11 10:05 | Emergency (ER) | payer MEDICAID ==
[2017-12-11 10:23] VITALS: BP 150/80
--- NOTE | 2017-12-11 12:09 | Emergency Department Report ---
ED ENT HPI - General Chief complaint: Dental/Oral Stated complaint: MOUTH PAIN Time Seen by Provider: 12/11/17 12:02 Source: patient Mode of arrival: Ambulatory Limitations: No Limitations - History of Present Illness Initial comments: This is a 37-year-old -[place] male who presents with a bump under and on the right side of tongue for 9 days. Past medical history of asthma, congestive heart failure, diabetes type 2, and hypertension. Patient is also complaining of sore throat and dental pain. He reports pain as 10 on a pain scale and constant. He is currently not taking anything for pain. Patient states his entire mouth is in pain. He can't recall biting tongue. Patient denies history of seizures. Been having pain ever since. He is aware of dental decay is but does not have dental insurance and follow-up. There is a small bump on the right side and midline under tongue. Patient denies tongue swelling, drooling, fever, difficulty swallowing, and chest pain. MD complaint: sore throat, other (bump on right side of town) Onset/Timin -: days(s) Location: tongue, tooth # (#9 and #2) 1 - dental caries 2 - dental caries Severity: severe Severity scale (0 -10): 10 Quality: aching, constant Consistency: constant Improves with: none Worsens with: swallowing, eating Context- Dental: history of dental caries, poor dental care Associated Symptoms: gum swelling, toothache, sore throat - Related Data Home Medications Medication Instructions Recorded Confirmed Last Taken Atorvastatin Calcium [Lipitor] 10 mg PO DAILY 08/24/17 08/24/17 Unknown Famotidine [Pepcid] 20 mg PO BID 08/24/17 08/24/17 Unknown Loperamide HCl [Anti-Diarrheal] 2 mg PO QID PRN 08/24/17 08/24/17 Unknown Naproxen [Naprosyn] 500 mg PO BID 08/24/17 08/24/17 Unknown Nitroglycerin [Nitrostat] 0.4 mg SL Q5M PRN 08/24/17 08/24/17 Unknown Ondansetron [Zofran TAB] 4 mg PO Q8HR PRN 08/24/17 08/24/17 Unknown Previous Rx's Medication Instructions Recorded Last Taken Type traMADol [Ultram 50 MG tab] 50 mg PO Q6HR PRN #14 tablet 11/26/16 Unknown Rx Carvedilol [Coreg] 12.5 mg PO BID #60 tablet 08/25/17 Unknown Rx Lisinopril [Zestril TAB] 2.5 mg PO QDAY #30 tablet 08/25/17 Unknown Rx traMADol [Ultram 50 MG tab] 50 mg PO Q6HR PRN #10 tablet 10/05/17 Unknown Rx traMADol [Ultram 50 MG tab] 50 mg PO Q6HR PRN #10 tablet 10/09/17 Unknown Rx traMADol [Ultram 50 MG tab] 50 mg PO Q6HR PRN #14 tablet 11/11/17 Unknown Rx Clindamycin [Clindamycin CAP] 300 mg PO Q8H #21 cap 12/11/17 Unknown Rx Nystas/Diphen/Xyl Visc/Mylanta 15 ml MM Q4H PRN #120 ml 12/11/17 Unknown Rx [Magic Mouthwash] traMADol [Ultram 50 MG tab] 50 mg PO Q6HR PRN #12 tablet 12/11/17 Unknown Rx Allergies Allergy/AdvReac Type Severity Reaction Status Date / Time aspirin Allergy Hives Verified 11/11/17 02:38 ED Dental HPI - General Chief complaint: Dental/Oral Stated complaint: MOUTH PAIN Time Seen by Provider: 12/11/17 12:02 Source: patient Mode of arrival: Ambulatory Limitations: No Limitations - Related Data Home Medications Medication Instructions Recorded Confirmed Last Taken Atorvastatin Calcium [Lipitor] 10 mg PO DAILY 08/24/17 08/24/17 Unknown Famotidine [Pepcid] 20 mg PO BID 08/24/17 08/24/17 Unknown Loperamide HCl [Anti-Diarrheal] 2 mg PO QID PRN 08/24/17 08/24/17 Unknown Naproxen [Naprosyn] 500 mg PO BID 08/24/17 08/24/17 Unknown Nitroglycerin [Nitrostat] 0.4 mg SL Q5M PRN 08/24/17 08/24/17 Unknown Ondansetron [Zofran TAB] 4 mg PO Q8HR PRN 08/24/17 08/24/17 Unknown Previous Rx's Medication Instructions Recorded Last Taken Type traMADol [Ultram 50 MG tab] 50 mg PO Q6HR PRN #14 tablet 11/26/16 Unknown Rx Carvedilol [Coreg] 12.5 mg PO BID #60 tablet 08/25/17 Unknown Rx Lisinopril [Zestril TAB] 2.5 mg PO QDAY #30 tablet 08/25/17 Unknown Rx traMADol [Ultram 50 MG tab] 50 mg PO Q6HR PRN #10 tablet 10/05/17 Unknown Rx traMADol [Ultram 50 MG tab] 50 mg PO Q6HR PRN #10 tablet 10/09/17 Unknown Rx traMADol [Ultram 50 MG tab] 50 mg PO Q6HR PRN #14 tablet 11/11/17 Unknown Rx Clindamycin [Clindamycin CAP] 300 mg PO Q8H #21 cap 12/11/17 Unknown Rx Nystas/Diphen/Xyl Visc/Mylanta 15 ml MM Q4H PRN #120 ml 12/11/17 Unknown Rx [Magic Mouthwash] traMADol [Ultram 50 MG tab] 50 mg PO Q6HR PRN #12 tablet 12/11/17 Unknown Rx Allergies Allergy/AdvReac Type Severity Reaction Status Date / Time aspirin Allergy Hives Verified 11/11/17 02:38 ED Review of Systems ROS: Stated complaint: MOUTH PAIN Other details as noted in HPI Constitutional: denies: chills, fever ENT: throat pain, dental pain. denies: ear pain, congestion Respiratory: denies: cough, shortness of breath, wheezing Cardiovascular: denies: chest pain, palpitations Gastrointestinal: denies: abdominal pain, nausea, diarrhea Neurological: denies: headache, weakness, paresthesias Psychiatric: denies: anxiety, depression ED Past Medical Hx - Past Medical History Previous Medical History?: Yes Hx Hypertension: Yes Hx CVA: Yes (TIAs, residiu. right side weakness) Hx Heart Attack/AMI: Yes (2 stents placed 2016) Hx Congestive Heart Failure: Yes Hx Diabetes: Yes Hx Deep Vein Thrombosis: Yes (R-leg) Hx Pulmonary Embolism: Yes Hx GERD: No Hx Liver Disease: No Hx Renal Disease: No Hx Sickle Cell Disease: No Hx Arthritis: No Hx Headaches / Migraines: No Hx Seizures: No Hx Kidney Stones: No Hx Psychiatric Treatment: No Hx Asthma: Yes Hx COPD: No Hx Tuberculosis: No Hx Dementia: No Hx HIV: No Additional medical history: Ulcers, a-fib. strong family hx of cardiac disorders - Surgical History Past Surgical History?: Yes Hx Coronary Stent: Yes (x2 2017) Hx Open Heart Surgery: No Hx Pacemaker: No Hx Internal Defibrillator: No Hx Cholecystectomy: No Hx Appendectomy: No Hx Breast Surgery: No Additional Surgical History: Stent placement - Social History Smoking Status: Current Every Day Smoker Substance Use Type: None - Medications Home Medications: Home Medications Medication Instructions Recorded Confirmed Last Taken Type traMADol [Ultram 50 MG tab] 50 mg PO Q6HR PRN #14 tablet 11/26/16 08/24/17 Unknown Rx Atorvastatin Calcium [Lipitor] 10 mg PO DAILY 08/24/17 08/24/17 Unknown History Famotidine [Pepcid] 20 mg PO BID 08/24/17 08/24/17 Unknown History Loperamide HCl [Anti-Diarrheal] 2 mg PO QID PRN 08/24/17 08/24/17 Unknown History Naproxen [Naprosyn] 500 mg PO BID 08/24/17 08/24/17 Unknown History Nitroglycerin [Nitrostat] 0.4 mg SL Q5M PRN 08/24/17 08/24/17 Unknown History Ondansetron [Zofran TAB] 4 mg PO Q8HR PRN 08/24/17 08/24/17 Unknown History Carvedilol [Coreg] 12.5 mg PO BID #60 tablet 08/25/17 Unknown Rx Lisinopril [Zestril TAB] 2.5 mg PO QDAY #30 tablet 08/25/17 Unknown Rx traMADol [Ultram 50 MG tab] 50 mg PO Q6HR PRN #10 tablet 10/05/17 Unknown Rx traMADol [Ultram 50 MG tab] 50 mg PO Q6HR PRN #10 tablet 10/09/17 Unknown Rx traMADol [Ultram 50 MG tab] 50 mg PO Q6HR PRN #14 tablet 11/11/17 Unknown Rx Clindamycin [Clindamycin CAP] 300 mg PO Q8H #21 cap 12/11/17 Unknown Rx Nystas/Diphen/Xyl Visc/Mylanta 15 ml MM Q4H PRN #120 ml 12/11/17 Unknown Rx [Magic Mouthwash] traMADol [Ultram 50 MG tab] 50 mg PO Q6HR PRN #12 tablet 12/11/17 Unknown Rx ED Physical Exam - General Limitations: No Limitations General appearance: alert, in no apparent distress - ENT ENT exam: Present: normal orophraynx, mucous membranes moist, TM's normal bilaterally, other (dental caries #2 & #9, 3 mm nodule on right side of tongue, 4 mm nodule on frenulum, tender) - Neck Neck exam: Present: normal inspection, full ROM. Absent: lymphadenopathy - Respiratory Respiratory exam: Present: normal lung sounds bilaterally. Absent: respiratory distress - Cardiovascular Cardiovascular Exam: Present: regular rate, normal rhythm. Absent: systolic murmur, diastolic murmur, rubs, gallop - GI/Abdominal GI/Abdominal exam: Present: soft, normal bowel sounds. Absent: organomegaly, mass - Neurological Exam Neurological exam: Present: alert, oriented X3 - Psychiatric Psychiatric exam: Present: normal affect, normal mood - Skin Skin exam: Present: warm, dry, intact, normal color. Absent: rash ED Course Vital Signs 12/11/17 10:19 Temperature 98.3 F Pulse Rate 85 Respiratory 18 Rate Blood Pressure 150/80 O2 Sat by Pulse 95 Oximetry ED Medical Decision Making - Medical Decision Making Patient is stable and was examined by me. Susceptible of dental caries and canker ulcers. Discussed plan with patient to start clindamycin, Magic mouthwash, and tramdol. Referrals to dentists. Patient is discharged home in stable condition. Follow up with dentist and referral to [facility]. Critical care attestation.: If time is entered above; I have spent that time in minutes in the direct care of this critically ill patient, excluding procedure time. ED Disposition Clinical Impression: Dental caries, Canker sores oral, Toothache Disposition: TO HOME OR SELFCARE Is pt being admited?: No Does the pt Need Aspirin: No Condition: Stable Instructions: Dental Caries (ED), Canker Sores (ED), Toothache (ED) Additional Instructions: Complete all days of clindamycin as prescribed for 14 days. Use Magic mouthwash 4 times a day as needed for pain. Follow up with Dentist in 24-72 hours. Prescriptions: Clindamycin [Clindamycin CAP] 300 mg PO Q8H #21 cap Nystas/Diphen/Xyl Visc/Mylanta [Magic Mouthwash] 15 ml MM Q4H PRN #120 ml PRN Reason: Pain , Severe (7-10) traMADol [Ultram 50 MG tab] 50 mg PO Q6HR PRN #12 tablet PRN Reason: Pain Referrals: [facility] [Outside] - 3-5 Days [facility] [Outside] - 3-5 Days [facility] [Outside] - 3-5 Days [facility] [Provider Group] - 3-5 Days Time of Disposition: 12:27 Print Language: [id number]
== END 2017-12-11 13:02 | disposition home or self-care (01) ==
LOC: ED 10:05
DX: K02.9 Dental caries, unspecified (principal); K12.0 Recurrent oral aphthae; I10 Essential (primary) hypertension; I25.2 Old myocardial infarction; I50.9 Heart failure, unspecified; E11.9 Type 2 diabetes mellitus without complications; I48.91 Unspecified atrial fibrillation; J45.909 Unspecified asthma, uncomplicated; F17.200 Nicotine dependence, unspecified, uncomplicated; Z86.711 Personal history of pulmonary embolism; Z86.718 Personal history of other venous thrombosis and embolism; Z86.73 Personal history of transient ischemic attack (TIA), and cerebral infarction without residual deficits; Z79.82 Long term (current) use of aspirin; Z79.899 Other long term (current) drug therapy
CPT/HCPCS: 82962; 99282

== ENCOUNTER 2018-01-15 13:05 | Emergency (ER) | payer MEDICAID ==
[2018-01-15 13:35] VITALS: BP 118/74
[2018-01-15 13:58] LABS: Basophils # (Auto) 0.1 K/mm3 (0.0-0.1); Basophils % (Auto) 1.4 % (0.0-1.8); Eosinophils # (Auto) 0.1 K/mm3 (0.0-0.4); Eosinophils % (Auto) 3.1 % (0.0-4.3); Hematocrit 35.6 % (35.5-45.6); Hemoglobin 11.2 gm/dl (11.8-15.2); Lymphocytes # (Auto) 1.1 K/mm3 (1.2-5.4); Lymphocytes % (Auto) 30.6 % (13.4-35.0); Mean Corpuscular HGB Conc 31 % (32-34); Mean Corpuscular Volume 77 fl (84-94); Monocytes # (Auto) 0.4 K/mm3 (0.0-0.8); Monocytes % (Auto) 12.3 % (0.0-7.3); Platelet Count 202 K/mm3 (140-440); Red Cell Distribution Width 17.7 % (13.2-15.2)
[2018-01-15 14:00] LABS: Mean Corpuscular Hemoglobin 24 pg (28-32)
[2018-01-15 14:16] LABS: BUN/Creatinine Ratio 10; Blood Urea Nitrogen 11 mg/dL (9-20); Calcium 9.2 mg/dL (8.4-10.2); Hemolysis Index 2
== END 2018-01-15 21:35 | disposition left against medical advice (07) ==
LOC: ED 13:05
DX: R07.9 Chest pain, unspecified (principal); Z53.21 Procedure and treatment not carried out due to patient leaving prior to being seen by health care provider
CPT/HCPCS: 36415; 80048; 84484; 85025; 93005; 93010

== ENCOUNTER 2018-01-17 14:38 | Emergency (ER) | payer MEDICAID ==
[2018-01-17 15:05] LABS: Basophils % (Auto) 1.7 % (0.0-1.8); Eosinophils # (Auto) 0.1 K/mm3 (0.0-0.4); Eosinophils % (Auto) 4.4 % (0.0-4.3); Hematocrit 33.3 % (35.5-45.6); Hemoglobin 10.6 gm/dl (11.8-15.2); Lymphocytes # (Auto) 0.9 K/mm3 (1.2-5.4); Lymphocytes % (Auto) 29.7 % (13.4-35.0); Mean Corpuscular HGB Conc 32 % (32-34); Mean Corpuscular Volume 77 fl (84-94); Monocytes # (Auto) 0.4 K/mm3 (0.0-0.8); Monocytes % (Auto) 12.9 % (0.0-7.3); Platelet Count 221 K/mm3 (140-440); Red Blood Count 4.31 M/mm3 (3.65-5.03); Red Cell Distribution Width 17.9 % (13.2-15.2)
[2018-01-17 15:07] LABS: Mean Corpuscular Hemoglobin 25 pg (28-32)
[2018-01-17 15:15] LABS: INR 1.09 (0.87-1.13)
[2018-01-17 15:16] LABS: Partial Thromboplastin Time 23.5 Sec. (24.2-36.6)
[2018-01-17 15:21] LABS: BUN/Creatinine Ratio 8; Blood Urea Nitrogen 9 mg/dL (9-20); Calcium 8.7 mg/dL (8.4-10.2); Hemolysis Index 5
--- NOTE | 2018-01-17 16:19 | Emergency Department Report ---
ED Chest Pain HPI - General Chief Complaint: Chest Pain Stated Complaint: CHEST PAIN Time Seen by Provider: 01/17/18 16:18 Source: patient Mode of arrival: Ambulatory Limitations: No Limitations - History of Present Illness Initial Comments: Patient presented to the emergency room complaining of chest pain. He said that it started on Sunday and he came to the hospital on Sunday but could not stay because there were a lot of people in the waiting room. However the chest pain continued till today prompting him to come back to the emergency room for medical evaluation. He said the chest pain starts in the left chest and radiates to his left upper extremity and left neck. MD Complaint: chest pain -: Gradual, days(s) (5) Onset: during rest Pain Location: left chest Pain Radiation: LUE, neck Severity: moderate Severity scale (0 -10): 8 Quality: tightness, aching, sharp Consistency: constant Improves With: nothing Worsens With: nothing re: dyspnea. denies: nausea, vomting Treatments Prior to Arrival: none Aspirin use within the Past 7 Days: (0) No - Related Data On Oral Contraceptives: No Home Medications Medication Instructions Recorded Confirmed Last Taken Atorvastatin Calcium [Lipitor] 10 mg PO DAILY 08/24/17 08/24/17 Unknown Famotidine [Pepcid] 20 mg PO BID 08/24/17 08/24/17 Unknown Loperamide HCl [Anti-Diarrheal] 2 mg PO QID PRN 08/24/17 08/24/17 Unknown Naproxen [Naprosyn] 500 mg PO BID 08/24/17 08/24/17 Unknown Nitroglycerin [Nitrostat] 0.4 mg SL Q5M PRN 08/24/17 08/24/17 Unknown Ondansetron [Zofran TAB] 4 mg PO Q8HR PRN 08/24/17 08/24/17 Unknown Previous Rx's Medication Instructions Recorded Last Taken Type traMADol [Ultram 50 MG tab] 50 mg PO Q6HR PRN #14 tablet 11/26/16 Unknown Rx Carvedilol [Coreg] 12.5 mg PO BID #60 tablet 08/25/17 Unknown Rx Lisinopril [Zestril TAB] 2.5 mg PO QDAY #30 tablet 08/25/17 Unknown Rx traMADol [Ultram 50 MG tab] 50 mg PO Q6HR PRN #10 tablet 10/05/17 Unknown Rx traMADol [Ultram 50 MG tab] 50 mg PO Q6HR PRN #10 tablet 10/09/17 Unknown Rx traMADol [Ultram 50 MG tab] 50 mg PO Q6HR PRN #14 tablet 11/11/17 Unknown Rx Clindamycin [Clindamycin CAP] 300 mg PO Q8H #21 cap 12/11/17 Unknown Rx Nystas/Diphen/Xyl Visc/Mylanta 15 ml MM Q4H PRN #120 ml 12/11/17 Unknown Rx [Magic Mouthwash] traMADol [Ultram 50 MG tab] 50 mg PO Q6HR PRN #12 tablet 12/11/17 Unknown Rx Allergies Allergy/AdvReac Type Severity Reaction Status Date / Time aspirin Allergy Hives Verified 11/11/17 02:38 Heart Score - HEART Score History: Moderately suspicious EKG: Non-specific Age: < 45 Risk factors: > 3 risk factors or hx of atherosclerotic disease Troponin: < normal limit HEART Score: 4 - Critical Actions Critical Actions: 4-6 pts:12-16.6% risk of adverse cardiac event. Should be admitted ED Review of Systems ROS: Stated complaint: CHEST PAIN Other details as noted in HPI Comment: All other systems reviewed and negative Constitutional: denies: fever Eyes: denies: eye pain ENT: denies: ear pain Respiratory: shortness of breath Cardiovascular: chest pain. denies: dyspnea on exertion, orthopnea Endocrine: no symptoms reported Gastrointestinal: denies: abdominal pain, nausea, vomiting, diarrhea Genitourinary: denies: urgency, dysuria Musculoskeletal: denies: back pain, joint swelling Skin: denies: rash, lesions Neurological: denies: headache, weakness, numbness Psychiatric: denies: anxiety, depression Hematological/Lymphatic: denies: easy bleeding, easy bruising ED Past Medical Hx - Past Medical History Previous Medical History?: Yes Hx Hypertension: Yes Hx CVA: Yes (TIAs, residiu. right side weakness) Hx Heart Attack/AMI: Yes (2 stents placed 2016) Hx Congestive Heart Failure: Yes Hx Diabetes: Yes Hx Deep Vein Thrombosis: Yes (R-leg) Hx Pulmonary Embolism: Yes Hx GERD: No Hx Liver Disease: No Hx Renal Disease: No Hx Sickle Cell Disease: No Hx Arthritis: No Hx Headaches / Migraines: No Hx Seizures: No Hx Kidney Stones: No Hx Psychiatric Treatment: No Hx Asthma: Yes Hx COPD: No Hx Tuberculosis: No Hx Dementia: No Hx HIV: No Additional medical history: Ulcers, a-fib. strong family hx of cardiac disorders - Surgical History Past Surgical History?: Yes Hx Coronary Stent: Yes (x2 2017) Hx Open Heart Surgery: No Hx Pacemaker: No Hx Internal Defibrillator: No Hx Cholecystectomy: No Hx Appendectomy: No Hx Breast Surgery: No Additional Surgical History: Stent placement - Social History Smoking Status: Current Every Day Smoker Substance Use Type: None - Medications Home Medications: Home Medications Medication Instructions Recorded Confirmed Last Taken Type traMADol [Ultram 50 MG tab] 50 mg PO Q6HR PRN #14 tablet 11/26/16 08/24/17 Unknown Rx Atorvastatin Calcium [Lipitor] 10 mg PO DAILY 08/24/17 08/24/17 Unknown History Famotidine [Pepcid] 20 mg PO BID 08/24/17 08/24/17 Unknown History Loperamide HCl [Anti-Diarrheal] 2 mg PO QID PRN 08/24/17 08/24/17 Unknown History Naproxen [Naprosyn] 500 mg PO BID 08/24/17 08/24/17 Unknown History Nitroglycerin [Nitrostat] 0.4 mg SL Q5M PRN 08/24/17 08/24/17 Unknown History Ondansetron [Zofran TAB] 4 mg PO Q8HR PRN 08/24/17 08/24/17 Unknown History Carvedilol [Coreg] 12.5 mg PO BID #60 tablet 08/25/17 Unknown Rx Lisinopril [Zestril TAB] 2.5 mg PO QDAY #30 tablet 08/25/17 Unknown Rx traMADol [Ultram 50 MG tab] 50 mg PO Q6HR PRN #10 tablet 10/05/17 Unknown Rx traMADol [Ultram 50 MG tab] 50 mg PO Q6HR PRN #10 tablet 10/09/17 Unknown Rx traMADol [Ultram 50 MG tab] 50 mg PO Q6HR PRN #14 tablet 11/11/17 Unknown Rx Clindamycin [Clindamycin CAP] 300 mg PO Q8H #21 cap 12/11/17 Unknown Rx Nystas/Diphen/Xyl Visc/Mylanta 15 ml MM Q4H PRN #120 ml 12/11/17 Unknown Rx [Magic Mouthwash] traMADol [Ultram 50 MG tab] 50 mg PO Q6HR PRN #12 tablet 12/11/17 Unknown Rx ED Physical Exam - General Limitations: No Limitations General appearance: alert, in no apparent distress, obese - Head Head exam: Present: atraumatic, normocephalic, normal inspection - Eye Eye exam: Present: normal appearance, PERRL, EOMI Pupils: Present: normal accommodation - ENT ENT exam: Present: normal exam, normal orophraynx, mucous membranes moist - Neck Neck exam: Present: normal inspection, full ROM. Absent: tenderness - Respiratory Respiratory exam: Present: normal lung sounds bilaterally. Absent: respiratory distress, wheezes, rales, rhonchi, stridor - Cardiovascular Cardiovascular Exam: Present: regular rate, normal rhythm, normal heart sounds - GI/Abdominal GI/Abdominal exam: Present: soft, normal bowel sounds. Absent: distended, tenderness, guarding, rebound, rigid - Extremities Exam Extremities exam: Present: normal inspection, full ROM, normal capillary refill. Absent: tenderness - Back Exam Back exam: Present: normal inspection, full ROM. Absent: tenderness - Neurological Exam Neurological exam: Present: alert, oriented X3, CN II-XII intact - Psychiatric Psychiatric exam: Present: normal affect, normal mood - Skin Skin exam: Present: warm, dry, intact, normal color. Absent: rash ED Course Vital Signs 01/17/18 01/17/18 01/17/18 14:49 16:06 16:15 Temperature 99.3 F Pulse Rate 83 79 82 Respiratory 16 11 L 25 H Rate Blood Pressure 133/74 129/84 O2 Sat by Pulse 96 98 99 Oximetry 01/17/18 01/17/18 01/17/18 16:30 16:45 17:01 Temperature Pulse Rate 86 84 82 Respiratory 17 16 24 Rate Blood Pressure 119/58 120/41 112/63 O2 Sat by Pulse 100 100 100 Oximetry 01/17/18 01/17/18 01/17/18 17:15 17:31 17:39 Temperature Pulse Rate 95 H 71 Respiratory 24 17 18 Rate Blood Pressure 127/84 127/84 O2 Sat by Pulse 100 98 Oximetry 01/17/18 01/17/18 01/17/18 17:45 18:01 18:09 Temperature Pulse Rate 87 77 Respiratory 30 H 21 18 Rate Blood Pressure 127/84 127/84 O2 Sat by Pulse 98 100 Oximetry 01/17/18 01/17/18 01/17/18 18:15 18:31 18:45 Temperature Pulse Rate 90 80 73 Respiratory 20 18 20 Rate Blood Pressure 127/84 127/84 127/84 O2 Sat by Pulse 98 92 99 Oximetry 01/17/18 01/17/18 01/17/18 19:01 19:15 19:31 Temperature Pulse Rate 74 82 78 Respiratory 21 22 17 Rate Blood Pressure 127/84 127/84 127/84 O2 Sat by Pulse 95 97 97 Oximetry 01/17/18 01/17/18 01/17/18 19:45 20:00 20:21 Temperature Pulse Rate 78 Respiratory 18 Rate Blood Pressure 132/78 132/78 132/78 O2 Sat by Pulse 100 82 L Oximetry - Reevaluation(s) Reevaluation #1: 01/17/18 17:37 I discussed patient care with the hospitalist on-call Dr. Maloney. He will admit patient to the hospital for further evaluation and management. KIANNA score - Kianna Score Age > 65: (0) No Aspirin use within the Past 7 Days: (0) No 3 or more CAD Risk Factors: (1) Yes 2 or more Angina events in past 24 hrs: (0) No Known CAD with more than 50% Stenosis: (0) No Elevated Cardiac Markers: (0) No ST Deviation Greater than 0.5mm: (0) No KIANNA Score: 1 ED Medical Decision Making - Lab Data Result diagrams: 01/17/18 14:56 01/17/18 14:56 Lab Results 01/17/18 01/17/18 01/17/18 Range/Units 14:56 14:56 14:56 WBC 2.9 L (4.5-11.0) K/mm3 RBC 4.31 (3.65-5.03) M/mm3 Hgb 10.6 L (11.8-15.2) gm/dl Hct 33.3 L (35.5-45.6) % MCV 77 L (84-94) fl MCH 25 L (28-32) pg MCHC 32 (32-34) % RDW 17.9 H (13.2-15.2) % Plt Count 221 (140-440) K/mm3 Lymph % (Auto) 29.7 (13.4-35.0) % [place] % (Auto) 12.9 H (0.0-7.3) % Eos % (Auto) 4.4 H (0.0-4.3) % Baso % (Auto) 1.7 (0.0-1.8) % Lymph # 0.9 L (1.2-5.4) K/mm3 [place] # 0.4 (0.0-0.8) K/mm3 Eos # 0.1 (0.0-0.4) K/mm3 Baso # 0.0 (0.0-0.1) K/mm3 Seg Neutrophils % 51.3 (40.0-70.0) % Seg Neutrophils # 1.5 L (1.8-7.7) K/mm3 PT 14.7 (12.2-14.9) Sec. INR 1.09 (0.87-1.13) APTT 23.5 L (24.2-36.6) Sec. Sodium 140 (137-145) mmol/L Potassium 3.7 (3.6-5.0) mmol/L Chloride 104.7 (98-107) mmol/L Carbon Dioxide 26 (22-30) mmol/L Anion Gap 13 mmol/L BUN 9 (9-20) mg/dL Creatinine 1.1 (0.8-1.5) mg/dL Estimated GFR > 60 ml/min BUN/Creatinine Ratio 8 % Glucose 84 (75-100) mg/dL Calcium 8.7 (8.4-10.2) mg/dL Troponin T < 0.010 (0.00-0.029) ng/mL 01/17/18 Range/Units 16:38 WBC (4.5-11.0) K/mm3 RBC (3.65-5.03) M/mm3 Hgb (11.8-15.2) gm/dl Hct (35.5-45.6) % MCV (84-94) fl MCH (28-32) pg MCHC (32-34) % RDW (13.2-15.2) % Plt Count (140-440) K/mm3 Lymph % (Auto) (13.4-35.0) % [place] % (Auto) (0.0-7.3) % Eos % (Auto) (0.0-4.3) % Baso % (Auto) (0.0-1.8) % Lymph # (1.2-5.4) K/mm3 [place] # (0.0-0.8) K/mm3 Eos # (0.0-0.4) K/mm3 Baso # (0.0-0.1) K/mm3 Seg Neutrophils % (40.0-70.0) % Seg Neutrophils # (1.8-7.7) K/mm3 PT (12.2-14.9) Sec. INR (0.87-1.13) APTT (24.2-36.6) Sec. Sodium (137-145) mmol/L Potassium (3.6-5.0) mmol/L Chloride (98-107) mmol/L Carbon Dioxide (22-30) mmol/L Anion Gap mmol/L BUN (9-20) mg/dL Creatinine (0.8-1.5) mg/dL Estimated GFR ml/min BUN/Creatinine Ratio % Glucose (75-100) mg/dL Calcium (8.4-10.2) mg/dL Troponin T < 0.010 (0.00-0.029) ng/mL - EKG Data -: EKG Interpreted by Ar EKG shows normal: sinus rhythm Rate: normal (82) - EKG Data When compared to previous EKG there are: no significant change (From EKG of 01/15) Interpretation: nonspecific ST-T [facility] 01/17/18 17:54 No STEMI. - Radiology Data Radiology results: report reviewed, image reviewed - Medical Decision Making Patient is high risk because he has had 2 stents and MIs. He is also obese and diabetic with h/o high blood pressure. This puts him at a high risk for coronary artery disease which he does have in his past medical history. He will be admitted for serial enzymes and possible stress test because of the above reasons. This was comminuted to the hospitalist Dr. Maloney who admitted him. - Differential Diagnosis Chest Pain. Critical care attestation.: If time is entered above; I have spent that time in minutes in the direct care of this critically ill patient, excluding procedure time. ED Disposition Clinical Impression: Chest pain at rest Coronary artery disease Qualifiers: Coronary Disease-Associated Artery/Lesion type: unspecified vessel or lesion type [place] vs. transplanted heart: [place] heart Associated angina: with unspecified angina Qualified Code(s): I25.119 - Atherosclerotic heart disease of [place] coronary artery with unspecified angina pectoris Obesity Qualifiers: Obesity type: unspecified obesity type Obesity classification: adult class 2 ( BMI 35 - 39.9) Serious obesity comorbidity presence: unspecified whether serious comorbidity present Body mass index: BMI 37.0-37.9 Qualified Code(s): E66.9 - Obesity, unspecified Disposition: 09 OP ADMIT IP TO THIS HOSP Is pt being admited?: Yes Does the pt Need Aspirin: Yes Condition: Stable Instructions: Chest Pain (ED) Referrals: PRIMARY CARE, [Primary Care Provider] - 3-5 Days Time of Disposition: 17:30
[2018-01-17] MEDS ORDERED: ASPIRIN PO ONE (17:22)
[2018-01-17] MEDS ORDERED: MORPHINE IV ONE ×2 (17:23→20:00)
--- NOTE | 2018-01-17 18:29 | XRay Report ---
FINAL REPORT PROCEDURE: XR CHEST 1V AP TECHNIQUE: Chest radiograph anteroposterior view. CPT 03674 HISTORY: chest pain COMPARISON: 10/16/2017 FINDINGS: Heart: Normal. Mediastinum/Vessels: Prominent central vessels. Lungs/Pleural space: No infiltrate, effusion, or pneumothorax. Bony thorax: No acute osseous abnormality. Life support devices: None. IMPRESSION: No radiographic evidence of acute cardiopulmonary abnormality.
--- NOTE | 2018-01-17 19:49 | Event Note ---
Date: 01/17/18 COmes in for chest pain Nonspecific Exam normal Had extensive w/u Had PCI in 2017 Stress test on 07/04/2017 --Negative Dis Dx Non specific chest -pain Pain seeking behavior
[2018-01-17 20:32] VITALS: BP 132/78
== END 2018-01-17 20:33 | disposition admitted as inpatient to this hospital (09) ==
LOC: ED 14:38
DX: I25.119 Atherosclerotic heart disease of native coronary artery with unspecified angina pectoris (principal); E66.9 Obesity, unspecified; I11.0 Hypertensive heart disease with heart failure; I50.9 Heart failure, unspecified; I25.2 Old myocardial infarction; J45.909 Unspecified asthma, uncomplicated; E11.9 Type 2 diabetes mellitus without complications; F17.200 Nicotine dependence, unspecified, uncomplicated; Z86.718 Personal history of other venous thrombosis and embolism; Z86.73 Personal history of transient ischemic attack (TIA), and cerebral infarction without residual deficits; Z68.35 Body mass index [BMI] 35.0-35.9, adult; Z95.1 Presence of aortocoronary bypass graft; Z88.6 Allergy status to analgesic agent
CPT/HCPCS: 36415; 71045; 80048; 83880; 84484; 85025; 85610; 85730; 93005; 93010; 96374; 96376; 99284; J2270

== ENCOUNTER 2018-05-05 06:49 | Emergency (ER) | payer MEDICAID ==
[2018-05-05] MEDS ORDERED: ZOFRAN IV ONE (07:27)
[2018-05-05] MEDS ORDERED: SUBLIMAZE IV ONE (07:27)
[2018-05-05 07:53] LABS: BUN/Creatinine Ratio 7; Basophils % (Auto) 0.8 % (0.0-1.8); Blood Urea Nitrogen 8 mg/dL (9-20); Calcium 9.1 mg/dL (8.4-10.2); Eosinophils # (Auto) 0.2 K/mm3 (0.0-0.4); Eosinophils % (Auto) 3.6 % (0.0-4.3); Hematocrit 37.5 % (35.5-45.6); Hemoglobin 11.9 gm/dl (11.8-15.2); Hemolysis Index 8; Lymphocytes # (Auto) 1.3 K/mm3 (1.2-5.4); Lymphocytes % (Auto) 30.4 % (13.4-35.0); Mean Corpuscular HGB Conc 32 % (32-34); Mean Corpuscular Volume 76 fl (84-94); Monocytes # (Auto) 0.6 K/mm3 (0.0-0.8); Monocytes % (Auto) 14.6 % (0.0-7.3); Platelet Count 249 K/mm3 (140-440); Red Blood Count 4.95 M/mm3 (3.65-5.03); Red Cell Distribution Width 18.8 % (13.2-15.2)
[2018-05-05 08:05] LABS: INR 1.11 (0.87-1.13); Partial Thromboplastin Time 21.3 Sec. (24.2-36.6)
--- NOTE | 2018-05-05 08:44 | Emergency Department Report ---
HPI - General Chief Complaint: Extremity Problem,Nontraumatic Time Seen by Provider: 05/05/18 07:19 - HPI HPI: Room 8 The patient is a 37-year-old male presenting with a chief complaint of back pain and bilateral lower extremity weakness. The patient states he went to sleep last night at midnight in his usual state of health who awakened this morning at 05:00 with back pain and inability to move his legs. The patient states he has numbness in bilateral lower extremities. Patient denies bowel or bladder incontinence. Patient denies any preceding trauma. Patient complains of pain in the lower back and gives it a score of 10/10. Patient is uncertain if he's had a fever. Patient denies nausea or vomiting. Location: [See above] Duration: [See above] Quality: [See above] Severity: [See above] Modifying factors: [see above] Context: [see above] Mode of transportation: [not driving] ED Past Medical Hx - Past Medical History Hx Hypertension: Yes Hx CVA: Yes (TIAs, residiu. right side weakness) Hx Heart Attack/AMI: Yes (2 stents placed 2016) Hx Congestive Heart Failure: Yes Hx Diabetes: Yes Hx Deep Vein Thrombosis: Yes (R-leg) Hx Pulmonary Embolism: Yes Hx Asthma: Yes Additional medical history: Ulcers, a-fib. strong family hx of cardiac disorders - Surgical History Hx Coronary Stent: Yes (x2 2016) Additional Surgical History: Stent placement - Family History Family history: no significant - Social History Smoking Status: Current Every Day Smoker (1/2 pack per day) Substance Use Type: None (denies illicit drug use) - Medications Home Medications: Home Medications Medication Instructions Recorded Confirmed Last Taken Type Atorvastatin Calcium [Lipitor] 10 mg PO DAILY 08/24/17 08/24/17 Unknown History Famotidine [Pepcid] 20 mg PO BID 08/24/17 08/24/17 Unknown History Naproxen [Naprosyn] 500 mg PO BID 08/24/17 08/24/17 Unknown History Nitroglycerin [Nitrostat] 0.4 mg SL Q5M PRN 08/24/17 08/24/17 Unknown History Carvedilol [Coreg] 12.5 mg PO BID #60 tablet 08/25/17 Unknown Rx Lisinopril [Zestril TAB] 2.5 mg PO QDAY #30 tablet 08/25/17 Unknown Rx Nystas/Diphen/Xyl Visc/Mylanta 15 ml MM Q4H PRN #120 ml 12/11/17 Unknown Rx [Magic Mouthwash] levoFLOXacin [Levaquin TAB] 750 mg PO Q24HR #5 tablet 04/12/18 Unknown Rx ED Review of Systems ROS: Stated complaint: LEG/BACK PAIN Other details as noted in HPI Constitutional: denies: fever Eyes: denies: eye pain ENT: denies: throat pain Respiratory: no symptoms reported Cardiovascular: denies: chest pain Endocrine: no symptoms reported Gastrointestinal: denies: abdominal pain Genitourinary: denies: dysuria Musculoskeletal: back pain Neurological: denies: headache Physical Exam - Physical Exam Vital Signs: Vital Signs 05/05/18 05/05/18 05/05/18 07:06 07:35 07:47 Temperature 98.6 F 98 F Pulse Rate 87 84 Respiratory 18 20 18 Rate Blood Pressure 133/82 Blood Pressure 127/88 [Right] O2 Sat by Pulse 98 97 Oximetry Physical Exam: GENERAL: The patient is well-developed well-nourished male lying on stretcher appearing to be in moderate discomfort HEENT: Normocephalic. Atraumatic. Extraocular motions are intact. Patient has moist mucous membranes. NECK: Supple. Trachea midline CHEST/LUNGS: Clear to auscultation. There is no respiratory distress noted. HEART/CARDIOVASCULAR: Regular. There is no tachycardia. There is no gallop rub or murmur. ABDOMEN: Abdomen is soft, nontender. Patient has normal bowel sounds. There is no abdominal distention. SKIN: There is no rash. There is no edema. There is no diaphoresis. NEURO: The patient is awake, alert, and oriented. The patient is cooperative. The patient states he is unable to move either of his lower extremities. Patient states he cannot feel light touch to bilateral lower extremities. The patient has normal speech. 1+ right patellar DTR, unable to assess left patellar DTR secondary to patient's inability to relax MUSCULOSKELETAL: There is no axial tenderness to palpation however patient complains of pain from the lumbar spine to the lower thoracic spine. There is no evidence of acute injury. ED Course Vital Signs 05/05/18 05/05/18 05/05/18 07:06 07:35 07:47 Temperature 98.6 F 98 F Pulse Rate 87 84 Respiratory 18 20 18 Rate Blood Pressure 133/82 Blood Pressure 127/88 [Right] O2 Sat by Pulse 98 97 Oximetry - Consultations Consultation #1: 05/05/18 08:51 [facility] transfer line called-case discussed with Dr. Berrios- will accept patient in transfer to the ED ED Medical Decision Making - Lab Data Result diagrams: 05/05/18 07:23 05/05/18 07:23 Laboratory Tests 05/05/18 05/05/18 05/05/18 07:23 07:23 07:23 WBC 4.4 L RBC 4.95 Hgb 11.9 Hct 37.5 MCV 76 L MCH 24 L MCHC 32 RDW 18.8 H Plt Count 249 Lymph % (Auto) 30.4 [place] % (Auto) 14.6 H Eos % (Auto) 3.6 Baso % (Auto) 0.8 Lymph # 1.3 [place] # 0.6 Eos # 0.2 Baso # 0.0 Seg Neutrophils % 50.6 Seg Neutrophils # 2.2 PT 14.7 INR 1.11 APTT 21.3 L Sodium 141 Potassium 3.7 Chloride 104.4 Carbon Dioxide 23 Anion Gap 17 BUN 8 L Creatinine 1.2 Estimated GFR > 60 BUN/Creatinine Ratio 7 Glucose 105 H Calcium 9.1 - Differential Diagnosis spinal cord impingement, transverse myelitis, Guillan Javed syndrome Critical Care Time: Yes Critical care time in (mins) excluding proc time.: 30 Critical care attestation.: If time is entered above; I have spent that time in minutes in the direct care of this critically ill patient, excluding procedure time. ED Disposition Clinical Impression: Back pain, Bilateral leg weakness Disposition: DC/TX-70 ANOTHER TYPE HLTHCARE Is pt being admited?: No Does the pt Need Aspirin: No Condition: Serious Time of Disposition: 08:55 (awaiting transport to [facility] [place], [place])
[2018-05-05 10:05] VITALS: BP 129/62
== END 2018-05-05 10:24 | disposition other institution (70) ==
LOC: ED 06:49
DX: M54.9 Dorsalgia, unspecified (principal); M62.81 Muscle weakness (generalized); I11.0 Hypertensive heart disease with heart failure; I50.9 Heart failure, unspecified; I25.2 Old myocardial infarction; E11.9 Type 2 diabetes mellitus without complications; J45.909 Unspecified asthma, uncomplicated; F17.200 Nicotine dependence, unspecified, uncomplicated; Z86.718 Personal history of other venous thrombosis and embolism; Z86.711 Personal history of pulmonary embolism
CPT/HCPCS: 36415; 80048; 85025; 85610; 85730; 96374; 96375; 99291; J2405; J3010

== ENCOUNTER 2018-05-06 07:13 | Emergency (ER) | payer MEDICAID ==
[2018-05-06 07:29] VITALS: BP 139/87
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
[2018-05-06 08:28] LABS: Hematocrit 34.9 % (35.5-45.6); Hemoglobin 11.1 gm/dl (11.8-15.2); Mean Corpuscular HGB Conc 32 % (32-34); Mean Corpuscular Volume 76 fl (84-94); Platelet Count 237 K/mm3 (140-440); Red Blood Count 4.59 M/mm3 (3.65-5.03); Red Cell Distribution Width 18.3 % (13.2-15.2)
[2018-05-06 08:39] LABS: INR 1.32 (0.87-1.13); Partial Thromboplastin Time 22.6 Sec. (24.2-36.6)
[2018-05-06 08:45] LABS: Alanine Aminotransferase 20 units/L (7-56); BUN/Creatinine Ratio 12; Blood Urea Nitrogen 12 mg/dL (9-20); Calcium 9.1 mg/dL (8.4-10.2); Hemolysis Index 5
[2018-05-06 09:16] LABS: Bilirubin,Urine NEG (Negative); Blood,Urine SM (Negative); Color,Urine Yellow (Yellow); Mucus,Urine FEW /HPF
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
[2018-05-06] MEDS ORDERED: DECADRON IM ONE (10:28)
== END 2018-05-06 11:04 | disposition home or self-care (01) ==
LOC: ED 07:13
DX: M54.89 Other dorsalgia (principal); I11.0 Hypertensive heart disease with heart failure; I50.9 Heart failure, unspecified; I25.2 Old myocardial infarction; E11.9 Type 2 diabetes mellitus without complications; J45.909 Unspecified asthma, uncomplicated; I48.91 Unspecified atrial fibrillation; Z86.73 Personal history of transient ischemic attack (TIA), and cerebral infarction without residual deficits; Z95.818 Presence of other cardiac implants and grafts; Z95.5 Presence of coronary angioplasty implant and graft; Z88.6 Allergy status to analgesic agent
CPT/HCPCS: 36415; 72131; 80053; 81001; 85027; 85610; 85730; 99284; J1100

== ENCOUNTER 2018-05-10 23:47 | Emergency (ER) | payer MEDICAID | END 2018-05-11 00:15 | disposition left against medical advice (07) | LOC: ED 23:47 | DX: M54.9 Dorsalgia, unspecified (principal); Z53.21 Procedure and treatment not carried out due to patient leaving prior to being seen by health care provider ==

== ENCOUNTER 2018-05-29 00:53 | Emergency (ER) | payer MEDICAID ==
[2018-05-29] MEDS ORDERED: NORCO 5/325 PO ONE (08:16)
[2018-05-29] MEDS ORDERED: IBUPROFEN PO ONE (08:16)
[2018-05-29 09:39] VITALS: BP 113/70
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
== END 2018-05-29 11:00 | disposition home or self-care (01) ==
LOC: ED 00:53
DX: M79.18 Myalgia, other site (principal); I11.0 Hypertensive heart disease with heart failure; I50.9 Heart failure, unspecified; I25.2 Old myocardial infarction; J45.909 Unspecified asthma, uncomplicated; F17.200 Nicotine dependence, unspecified, uncomplicated; I48.91 Unspecified atrial fibrillation; Z88.8 Allergy status to other drugs, medicaments and biological substances; Z86.718 Personal history of other venous thrombosis and embolism; Z86.73 Personal history of transient ischemic attack (TIA), and cerebral infarction without residual deficits
CPT/HCPCS: 72100

== ENCOUNTER 2018-06-11 00:15 | Emergency (ER) | payer MEDICAID ==
[2018-06-11 04:15] LABS: Eosinophils # (Auto) 0.1 K/mm3 (0.0-0.4); Eosinophils % (Auto) 3.1 % (0.0-4.3); Monocytes # (Auto) 0.5 K/mm3 (0.0-0.8); Monocytes % (Auto) 12.8 % (0.0-7.3)
[2018-06-11 04:20] LABS: Alanine Aminotransferase 23 units/L (7-56); Albumin 4.1 g/dL (3.9-5); BUN/Creatinine Ratio 8; Blood Urea Nitrogen 10 mg/dL (9-20); Calcium 8.9 mg/dL (8.4-10.2); Hemolysis Index 3
--- NOTE | 2018-06-11 04:20 | XRay Report ---
FINAL REPORT PROCEDURE: XR ABDOMEN 1V AP TECHNIQUE: AP supine portable radiograph of the abdomen was obtained at 06/11/2018 03:08 (EST) . HISTORY: Abdominal pain no BM in 1 month COMPARISON: No prior studies are available for comparison. FINDINGS: Bowel gas pattern: The stomach is distended. There is no bowel obstruction, fecal impaction or bowel wall thickening.. Masses or calcifications: None. Bony structures: Normal. Other: There is no pneumoperitoneum.. IMPRESSION: The stomach is distended. There is no bowel obstruction, fecal impaction or bowel wall thickening.. There is no pneumoperitoneum..
[2018-06-11 04:30] LABS: Hematocrit 34.3 % (35.5-45.6); Mean Corpuscular HGB Conc 32 % (32-34); Mean Corpuscular Volume 77 fl (84-94); Platelet Count 221 K/mm3 (140-440); Red Blood Count 4.45 M/mm3 (3.65-5.03); Red Cell Distribution Width 18.4 % (13.2-15.2)
[2018-06-11 04:31] LABS: Basophils % (Auto) 0.9 % (0.0-1.8)
--- NOTE | 2018-06-11 04:39 | Emergency Department Report ---
ED Abdominal Pain HPI - General Chief Complaint: Abdominal Pain Stated Complaint: ABD/ANAL PAIN Time Seen by Provider: 06/11/18 04:36 Source: patient Mode of arrival: Ambulatory Limitations: No Limitations - History of Present Illness Initial Comments: 37-year-old -[place] male that was recently seen here on 06/05/2018 and 05/29/2018. Patient reports he has not had a bowel movement times one month and is having abdominal and back pains. Patient states he's tried [id number] stool softeners and laxatives nothing has worked. Patient has a past medical history of TIA with right sided weakness, asthma, CHF, diabetes, A. fib, ulcer, coronary stent 2 in 2017. MD Complaint: abdominal pain -: month(s) (1) Location: diffuse Radiation: none Migration to: no migration Severity scale (0 -10): 3 Quality: aching, fullness Consistency: constant Improves With: nothing Worsens With: nothing Associated Symptoms: constipation - Related Data Home Medications Medication Instructions Recorded Confirmed Last Taken Atorvastatin Calcium [Lipitor] 10 mg PO DAILY 08/24/17 08/24/17 Unknown Famotidine [Pepcid] 20 mg PO BID 08/24/17 08/24/17 Unknown Nitroglycerin [Nitrostat] 0.4 mg SL Q5M PRN 08/24/17 08/24/17 Unknown Previous Rx's Medication Instructions Recorded Last Taken Type Carvedilol [Coreg] 12.5 mg PO BID #60 tablet 08/25/17 Unknown Rx Lisinopril [Zestril TAB] 2.5 mg PO QDAY #30 tablet 08/25/17 Unknown Rx Naproxen [Naprosyn] 500 mg PO BID PRN #12 tablet 05/06/18 Unknown Rx Docusate Sodium [Colace] 100 mg PO BID #30 capsule 05/13/18 Unknown Rx HYDROcodone/APAP 5-325 [[place] 1 each PO Q6HR PRN #14 tablet 05/13/18 Unknown Rx 5/325] Hydrocortisone [Anucort-HC SUPPOS] 25 mg RC BID #10 supp.rect 05/13/18 Unknown Rx Ibuprofen [Motrin] 800 mg PO Q8HR PRN #20 tablet 05/29/18 Unknown Rx methOCARBAMOL [Robaxin TAB] 500 mg PO Q6H PRN #15 tablet 05/29/18 Unknown Rx traMADol [Ultram] 50 mg PO Q6HR PRN #10 tablet 05/29/18 Unknown Rx traMADol [Ultram] 50 mg PO Q6HR PRN #30 tablet 06/05/18 Unknown Rx Allergies Allergy/AdvReac Type Severity Reaction Status Date / Time aspirin Allergy Hives Verified 11/11/17 02:38 ED Review of Systems ROS: Stated complaint: ABD/ANAL PAIN Other details as noted in HPI Comment: All other systems reviewed and negative Gastrointestinal: abdominal pain, constipation ED Past Medical Hx - Past Medical History Previous Medical History?: Yes Hx Hypertension: Yes Hx CVA: Yes (TIAs, residiu. right side weakness) Hx Heart Attack/AMI: Yes (2 stents placed 2016) Hx Congestive Heart Failure: Yes Hx Diabetes: Yes Hx Deep Vein Thrombosis: Yes (R-leg) Hx Pulmonary Embolism: Yes Hx Asthma: Yes Additional medical history: Ulcers, a-fib. strong family hx of cardiac disorders - Surgical History Past Surgical History?: Yes Hx Coronary Stent: Yes (x2 2017) Additional Surgical History: Stent placement - Social History Smoking Status: Current Every Day Smoker Substance Use Type: Marijuana - Medications Home Medications: Home Medications Medication Instructions Recorded Confirmed Last Taken Type Atorvastatin Calcium [Lipitor] 10 mg PO DAILY 08/24/17 08/24/17 Unknown History Famotidine [Pepcid] 20 mg PO BID 08/24/17 08/24/17 Unknown History Nitroglycerin [Nitrostat] 0.4 mg SL Q5M PRN 08/24/17 08/24/17 Unknown History Carvedilol [Coreg] 12.5 mg PO BID #60 tablet 08/25/17 Unknown Rx Lisinopril [Zestril TAB] 2.5 mg PO QDAY #30 tablet 08/25/17 Unknown Rx Naproxen [Naprosyn] 500 mg PO BID PRN #12 tablet 05/06/18 Unknown Rx Docusate Sodium [Colace] 100 mg PO BID #30 capsule 05/13/18 Unknown Rx HYDROcodone/APAP 5-325 [[place] 1 each PO Q6HR PRN #14 tablet 05/13/18 Unknown Rx 5/325] Hydrocortisone [Anucort-HC SUPPOS] 25 mg RC BID #10 supp.rect 05/13/18 Unknown Rx Ibuprofen [Motrin] 800 mg PO Q8HR PRN #20 tablet 05/29/18 Unknown Rx methOCARBAMOL [Robaxin TAB] 500 mg PO Q6H PRN #15 tablet 05/29/18 Unknown Rx traMADol [Ultram] 50 mg PO Q6HR PRN #10 tablet 05/29/18 Unknown Rx traMADol [Ultram] 50 mg PO Q6HR PRN #30 tablet 06/05/18 Unknown Rx ED Physical Exam - General Limitations: No Limitations General appearance: alert, in no apparent distress - Head Head exam: Present: atraumatic, normocephalic - Eye Eye exam: Present: EOMI - ENT ENT exam: Present: mucous membranes moist - Respiratory Respiratory exam: Present: normal lung sounds bilaterally. Absent: respiratory distress - Cardiovascular Cardiovascular Exam: Present: regular rate, normal rhythm. Absent: systolic murmur, diastolic murmur, rubs, gallop - GI/Abdominal GI/Abdominal exam: Present: soft, distended. Absent: tenderness, guarding, rebound, rigid ED Course Vital Signs 06/11/18 06/11/18 00:21 05:18 Temperature 99.2 F Pulse Rate 128 H 95 H Respiratory 18 17 Rate Blood Pressure 158/80 O2 Sat by Pulse 100 99 Oximetry ED Medical Decision Making - Lab Data Result diagrams: 06/11/18 03:44 06/11/18 03:44 Laboratory Tests 06/11/18 06/11/18 06/11/18 03:44 03:44 04:30 WBC 4.1 L RBC 4.45 Hgb 11.0 L Hct 34.3 L MCV 77 L MCH 25 L MCHC 32 RDW 18.4 H Plt Count 221 Lymph % (Auto) 25.0 Petroleum % (Auto) 12.8 H Eos % (Auto) 3.1 Baso % (Auto) 0.9 Lymph # 1.0 L Petroleum # 0.5 Eos # 0.1 Baso # 0.0 Add Manual Diff Complete Seg Neutrophils % 58.2 Seg Neutrophils # 2.4 Sodium 142 Potassium 3.6 Chloride 102.4 Carbon Dioxide 26 Anion Gap 17 BUN 10 Creatinine 1.3 Estimated GFR > 60 BUN/Creatinine Ratio 8 Glucose 107 H Calcium 8.9 Total Bilirubin 0.20 AST 21 ALT 23 Alkaline Phosphatase 110 Total Protein 7.2 Albumin 4.1 Albumin/Globulin Ratio 1.3 Urine Color Yellow Urine Turbidity Clear Urine pH 5.0 Ur Specific [place] 1.024 Urine Protein 30 mg/dl Urine Glucose (UA) Neg Urine Ketones Neg Urine Blood Mod Urine Nitrite Neg Urine Bilirubin Neg Urine Urobilinogen 4.0 Ur Leukocyte Esterase Neg Urine WBC (Auto) 2.0 Urine RBC (Auto) 90.0 Hyaline Casts 6 Urine Mucus 3+ - Medical Decision Making Patient has been evaluated by this provider in fast track. KUB shows abdominal distention no obstruction or masses no fecal impaction. 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 Critical care attestation.: If time is entered above; I have spent that time in minutes in the direct care of this critically ill patient, excluding procedure time. ED Disposition Clinical Impression: Chronic constipation Hematuria Qualifiers: Hematuria type: unspecified type Qualified Code(s): R31.9 - Hematuria, unspecified Disposition: TO HOME OR SELFCARE Is pt being admited?: No Does the pt Need Aspirin: No Condition: Stable Instructions: Constipation (ED), High Fiber Diet (ED), Obstipation (ED), Acute Hematuria (ED) Additional Instructions: Please take [id number] Tylenol. 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 Please follow up with urologist I have listed their information below for your convenience. Referrals: [facility] [Provider Group] - 3-5 Days [facility] MD AHMET [Primary Care Provider] - 3-5 Days SURJIT REYNOLDS MD [Staff Physician] - 3-5 Days Forms: Work/School Release Form(ED)
[2018-06-11 05:02] LABS: Bilirubin,Urine NEG (Negative); Blood,Urine MOD (Negative); Color,Urine Yellow (Yellow); Hyaline Casts,Urine 6 /LPF; Mucus,Urine 3+ /HPF
[2018-06-11 06:32] VITALS: BP 124/76
== END 2018-06-11 06:50 | disposition home or self-care (01) ==
LOC: ED 00:15
DX: K59.04 Chronic idiopathic constipation (principal); R31.9 Hematuria, unspecified; K59.09 Other constipation; I11.0 Hypertensive heart disease with heart failure; I50.9 Heart failure, unspecified; I25.2 Old myocardial infarction; J45.909 Unspecified asthma, uncomplicated; F17.200 Nicotine dependence, unspecified, uncomplicated; F12.10 Cannabis abuse, uncomplicated; Z86.73 Personal history of transient ischemic attack (TIA), and cerebral infarction without residual deficits; Z86.718 Personal history of other venous thrombosis and embolism; Z86.711 Personal history of pulmonary embolism; Z95.5 Presence of coronary angioplasty implant and graft; Z95.818 Presence of other cardiac implants and grafts; Z79.899 Other long term (current) drug therapy
CPT/HCPCS: 36415; 74018; 80053; 81001; 85025

== ENCOUNTER 2018-06-16 22:22 | Inpatient (IN) | payer MEDICAID ==
[2018-06-16] MEDS ORDERED: ASPIRIN PO ONE (22:59)
[2018-06-16 23:37] LABS: Basophils % (Auto) 1.5 % (0.0-1.8); Eosinophils # (Auto) 0.1 K/mm3 (0.0-0.4); Eosinophils % (Auto) 4.6 % (0.0-4.3); Hematocrit 31.4 % (35.5-45.6); Hemoglobin 10.3 gm/dl (11.8-15.2); Lymphocytes # (Auto) 0.9 K/mm3 (1.2-5.4); Lymphocytes % (Auto) 34.2 % (13.4-35.0); Mean Corpuscular HGB Conc 33 % (32-34); Mean Corpuscular Volume 77 fl (84-94); Monocytes # (Auto) 0.3 K/mm3 (0.0-0.8); Monocytes % (Auto) 12.3 % (0.0-7.3); Platelet Count 205 K/mm3 (140-440); Red Blood Count 4.06 M/mm3 (3.65-5.03); Red Cell Distribution Width 18.8 % (13.2-15.2)
[2018-06-16 23:58] LABS: BUN/Creatinine Ratio 11; Blood Urea Nitrogen 12 mg/dL (9-20); Hemolysis Index 10
--- NOTE | 2018-06-17 01:05 | Emergency Department Report ---
HPI - General Chief Complaint: Chest Pain Time Seen by Provider: 06/17/18 00:44 - HPI HPI: Room 23 The patient is a 37-year-old male presented with a chief complaint of chest pain and left sided weakness/pain. Patient states since last night he's had pain in his left chest radiating to his left upper extremity and left lower extremity. Patient states he's had weakness in his left arm and left lower extremity since yesterday. Patient states his chest pain feels as though something is sitting on his chest. Patient states he's had shortness of breath, nausea/vomiting and diaphoresis with this pain. Patient currently gets his pain score of 10/10. Location: [See above] Duration: [See above] Quality: Heaviness Severity: 10/10 Modifying factors: [see above] Context: [see above] Mode of transportation: [not driving] ED Past Medical Hx - Past Medical History Hx Hypertension: Yes Hx CVA: Yes (TIAs, residiu. right side weakness) Hx Heart Attack/AMI: Yes (2 stents placed 2016) Hx Congestive Heart Failure: Yes Hx Diabetes: Yes Hx Deep Vein Thrombosis: Yes (R-leg) Hx Pulmonary Embolism: Yes Hx Asthma: Yes Additional medical history: Ulcers, a-fib. strong family hx of cardiac disorders - Surgical History Hx Coronary Stent: Yes (x2 2016) Additional Surgical History: Stent placement - Family History Family history: no significant - Social History Smoking Status: Current Every Day Smoker (1/2 pack per day) Substance Use Type: Alcohol (occasional), Marijuana - Medications Home Medications: Home Medications Medication Instructions Recorded Confirmed Last Taken Type Atorvastatin Calcium [Lipitor] 10 mg PO DAILY 08/24/17 08/24/17 Unknown History Famotidine [Pepcid] 20 mg PO BID 08/24/17 08/24/17 Unknown History Nitroglycerin [Nitrostat] 0.4 mg SL Q5M PRN 08/24/17 08/24/17 Unknown History Carvedilol [Coreg] 12.5 mg PO BID #60 tablet 08/25/17 Unknown Rx Lisinopril [Zestril TAB] 2.5 mg PO QDAY #30 tablet 08/25/17 Unknown Rx Naproxen [Naprosyn] 500 mg PO BID PRN #12 tablet 05/06/18 Unknown Rx Docusate Sodium [Colace] 100 mg PO BID #30 capsule 05/13/18 Unknown Rx HYDROcodone/APAP 5-325 [[place] 1 each PO Q6HR PRN #14 tablet 05/13/18 Unknown Rx 5/325] Hydrocortisone [Anucort-HC SUPPOS] 25 mg RC BID #10 supp.rect 05/13/18 Unknown Rx Ibuprofen [Motrin] 800 mg PO Q8HR PRN #20 tablet 05/29/18 Unknown Rx methOCARBAMOL [Robaxin TAB] 500 mg PO Q6H PRN #15 tablet 05/29/18 Unknown Rx traMADol [Ultram] 50 mg PO Q6HR PRN #10 tablet 05/29/18 Unknown Rx traMADol [Ultram] 50 mg PO Q6HR PRN #30 tablet 06/05/18 Unknown Rx ED Review of Systems ROS: Stated complaint: CHEST PAIN Other details as noted in HPI Constitutional: diaphoresis Eyes: denies: eye pain ENT: denies: throat pain Respiratory: shortness of breath Cardiovascular: chest pain Gastrointestinal: nausea, vomiting Genitourinary: denies: dysuria Musculoskeletal: myalgia Neurological: weakness. denies: headache Physical Exam - Physical Exam Vital Signs: Vital Signs 06/16/18 06/17/18 06/17/18 22:56 00:41 00:45 Temperature 98 F Pulse Rate 103 H 83 89 Respiratory 18 14 Rate Blood Pressure 148/83 114/53 O2 Sat by Pulse 100 Oximetry Physical Exam: GENERAL: The patient is well-developed well-nourished male lying on stretcher not appearing to be in acute distress. [] HEENT: Normocephalic. Atraumatic. Extraocular motions are intact. Patient has moist mucous membranes. NECK: Supple. Trachea midline CHEST/LUNGS: Clear to auscultation. There is no respiratory distress noted. HEART/CARDIOVASCULAR: Regular. There is no tachycardia. There is no gallop rub or murmur. ABDOMEN: Abdomen is soft, nontender. Patient has normal bowel sounds. There is no abdominal distention. SKIN: There is no rash. There is no edema. There is no diaphoresis. NEURO: The patient is awake, alert, and oriented. The patient is cooperative. Cranial nerves II through XII grossly intact. The patient has normal speech. Patient states he is unable to raise his left upper extremity and left lower extremity fully secondary to pain MUSCULOSKELETAL: There is no evidence of acute injury. NIHSS= 1 LOC a. Alert= 0 Not alert but arousable to minor stimuli=1 Not alert requires repeated or strong stimuli to move= 2 Responds only reflex motor or unresponsive=3 b. asks month and age answers both correctly= 0 answers one correctly= 1 answers neither correctly= 2 Best Gaze normal= 0 abnormal in one or both but forced deviation or total paresis absent= 1 forced deviation or total gaze paresis= 2 Visual no visual loss= 0 partial hemianopia= 1 complete hemianopia= 2 bilateral hemianopia= 3 Facial Palsy normal= 0 minor paralysis= 1 partial paralysis= 2 complete paralysis= 3 Motor Arm no drift= 0 (+)drift before 10 secs but doesnt hit bed= 1 some effort against gravity= 2 no effort against gravity= 3 no movement= 4 Motor leg no drift= 0 drift before 5 secs but doesnt hit bed= 1 drifts to bed before 5 secs= 2 no effort against gravity= 3 no movement= 4 Limb ataxia absent=0 present in one limb= 1 present in two limbs= 2 Sensory normal= 0 mild sensory loss= 1 severe (unaware of being touched)= 2 Best language mild/some loss of fluency= 1 severe= 2 mute= 3 Dysarthria normal= 0 slurs some words= 1 severe/unintelligible= 2 Extinction and Inattention no abnormality= 0 visual, tactile, auditory or personal inattention= 1 profound (doesnt recognize own hand or orients to only one side= 2 ED Course Vital Signs 06/16/18 06/17/18 06/17/18 22:56 00:41 00:45 Temperature 98 F Pulse Rate 103 H 83 89 Respiratory 18 14 Rate Blood Pressure 148/83 114/53 O2 Sat by Pulse 100 Oximetry ED Medical Decision Making - Lab Data Result diagrams: 06/16/18 23:09 06/16/18 23:09 Laboratory Tests 06/16/18 06/16/18 23:09 23:09 WBC 2.7 L RBC 4.06 Hgb 10.3 L Hct 31.4 L MCV 77 L MCH 25 L MCHC 33 RDW 18.8 H Plt Count 205 Lymph % (Auto) 34.2 [place] % (Auto) 12.3 H Eos % (Auto) 4.6 H Baso % (Auto) 1.5 Lymph # 0.9 L [place] # 0.3 Eos # 0.1 Baso # 0.0 Seg Neutrophils % 47.4 Seg Neutrophils # 1.3 L Sodium 144 Potassium 3.6 Chloride 106.3 Carbon Dioxide 27 Anion Gap 14 BUN 12 Creatinine 1.1 Estimated GFR > 60 BUN/Creatinine Ratio 11 Glucose 103 H Calcium 9.0 Troponin T < 0.010 - EKG Data -: EKG Interpreted by Me EKG shows normal: sinus rhythm Rate: normal - EKG Data When compared to previous EKG there are: no significant change Interpretation: unchanged when compared t (05/13/2018) - Radiology Data Radiology results: report reviewed (chest x-ray, CT head), image reviewed (chest x-ray, CT head) interpreted by me: Chest x-ray-no focal infiltrates, no pneumothorax Report Status: Finalized [facility] [address] [place] [address] XRay Report Signed Patient: DYAN SHEFFIELD JR MR#: [id number] : 1980 Acct:[id number] Age/Sex: 37 / M ADM Date: 06/16/18 Loc: ED Attending Dr: Ordering Physician: MARILEE HARRINGTON MD Date of Service: 06/17/18 Procedure(s): XR chest 1V ap Accession Number(s): [id number] cc: MARILEE HARRINGTON MD Fluoro Time In Minutes: FINAL REPORT PROCEDURE: XR CHEST 1V AP TECHNIQUE: Chest radiograph anteroposterior view. CPT 69483 HISTORY: chest pain COMPARISON: 01/17/2018 FINDINGS: Heart: Normal. Mediastinum/Vessels: Normal. Lungs/Pleural space: Normal. Bony thorax: No acute osseous abnormality. Life support devices: None. IMPRESSION: No acute cardiopulmonary abnormality. Transcribed By: CO Dictated By: JOSE ANTUNEZ MD Electronically Authenticated By: JOSE ANTUNEZ MD Signed Date/Time: 06/17/18200 DD/ 9 TD/TT: 06/17/18199 CT head (read by radiologist)-normal examination - Differential Diagnosis ACS, pericarditis, GERD, TIA, CVA Critical care attestation.: If time is entered above; I have spent that time in minutes in the direct care of this critically ill patient, excluding procedure time. ED Disposition Clinical Impression: Chest pain, Left-sided weakness Disposition: OP ADMIT IP TO THIS HOSP Is pt being admited?: Yes Does the pt Need Aspirin: No Condition: Fair Instructions: Chest Pain (ED) Referrals: ROBERT QUIÑONEZ MD [Primary Care Provider] - 3-5 Days Time of Disposition: 02:39 (hospitalist paged (Dr Malina Siu))
--- NOTE | 2018-06-17 02:01 | XRay Report ---
FINAL REPORT PROCEDURE: XR CHEST 1V AP TECHNIQUE: Chest radiograph anteroposterior view. CPT 78533 HISTORY: chest pain COMPARISON: 01/17/2018 FINDINGS: Heart: Normal. Mediastinum/Vessels: Normal. Lungs/Pleural space: Normal. Bony thorax: No acute osseous abnormality. Life support devices: None. IMPRESSION: No acute cardiopulmonary abnormality.
--- NOTE | 2018-06-17 02:38 | Cat Scan Report ---
FINAL REPORT PROCEDURE: CT HEAD/BRAIN WO CON TECHNIQUE: Computerized tomography of the head was performed without contrast material. HISTORY: left-sided pain and weakness COMPARISON: No prior studies are available for comparison. FINDINGS: Skull and scalp: Normal. Paranasal sinuses: Normal. Ventricles and subarachnoid spaces: Normal. Cerebrum: No evidence of hemorrhage, acute infarction or mass . Cerebellum and brainstem: No evidence of hemorrhage, acute infarction or mass. Vasculature: Normal. Comments: None. IMPRESSION: Normal Examination
[2018-06-17] MEDS ORDERED: PLAVIX PO ONE (02:43)
[2018-06-17] MEDS ORDERED: TYLENOL PO PRN (03:31)
[2018-06-17] MEDS ORDERED: D50W (25GM) Syringe IV PRN (03:31)
[2018-06-17] MEDS ORDERED: ZOFRAN IV PRN (03:31)
[2018-06-17] MEDS ORDERED: SODIUM CHLORIDE FLUSH SYRINGE 10 ML IV PRN (03:31)
--- NOTE | 2018-06-17 03:36 | History and Physical Report ---
History of Present Illness Date of examination: 06/17/18 History of present illness: 37-year-old man with a history of hypertension, diabetes, hyperlipidemia, coronary artery disease comes to emergency room with complaints of chest pain. Pain is in the left substernal area that started last night, feels that someone sitting most chest, intubated and every 15 minutes, intensity 5/10, radiating to the lower left arm. Admits to shortness of breath, no nausea vomiting, diaphoresis or palpitation. He stated he had one episodes of hematemesis this morning. He had a stress test in June 2017 which was negative Review Of Systems: Constitutional: nop fever, no weight loss Ears, eyes, nose, mouth and throat: no nasal congestion, no nasal discharge, no sinus pressure, blurry vision, diplopia Neck: No neck pain or rigidity. Cardiovascular: +chest pain, orthopnea, palpitations Respiratory: No cough Gastrointestinal: abdominal pain, hematochezia Genitourinary : no dysuria, frequency Musculoskeletal: no muscle ache Integumentary: no rash, no pruritis Neurological: no parathesias, focal weakness Endocrine: no cold or heat intolerance, no polyuria or polydipsia Hematologic/Lymphatic: no easy bruising, no easy bleeding, no gland swelling Allergic/Immunologic: no urticaria, no angioedema. PAST MEDICAL HISTORY: hypertension, diabetes, hyperlipidemia, coronary artery disease PAST SURGICAL HISTORY:none SOCIAL HISTORY: Smoked 1 PACK/day, no alcohol, drugs FAMILY HISTORY: Hypertension Medications and Allergies Allergies Allergy/AdvReac Type Severity Reaction Status Date / Time aspirin Allergy Hives Verified 11/11/17 02:38 Home Medications Medication Instructions Recorded Confirmed Last Taken Type Atorvastatin Calcium [Lipitor] 10 mg PO DAILY 08/24/17 08/24/17 Unknown History Famotidine [Pepcid] 20 mg PO BID 08/24/17 08/24/17 Unknown History Nitroglycerin [Nitrostat] 0.4 mg SL Q5M PRN 08/24/17 08/24/17 Unknown History Carvedilol [Coreg] 12.5 mg PO BID #60 tablet 08/25/17 Unknown Rx Lisinopril [Zestril TAB] 2.5 mg PO QDAY #30 tablet 08/25/17 Unknown Rx Naproxen [Naprosyn] 500 mg PO BID PRN #12 tablet 05/06/18 Unknown Rx Docusate Sodium [Colace] 100 mg PO BID #30 capsule 05/13/18 Unknown Rx HYDROcodone/APAP 5-325 [[place] 1 each PO Q6HR PRN #14 tablet 05/13/18 Unknown Rx 5/325] Hydrocortisone [Anucort-HC SUPPOS] 25 mg RC BID #10 supp.rect 05/13/18 Unknown Rx Ibuprofen [Motrin] 800 mg PO Q8HR PRN #20 tablet 05/29/18 Unknown Rx methOCARBAMOL [Robaxin TAB] 500 mg PO Q6H PRN #15 tablet 05/29/18 Unknown Rx traMADol [Ultram] 50 mg PO Q6HR PRN #10 tablet 05/29/18 Unknown Rx traMADol [Ultram] 50 mg PO Q6HR PRN #30 tablet 06/05/18 Unknown Rx Active Meds: Active Medications Acetaminophen (Tylenol) 650 mg PO Q4H PRN PRN Reason: Pain MILD(1-3)/Fever >100.5/EGAN Dextrose (D50w (25gm) Syringe) 50 ml IV PRN PRN PRN Reason: Hypoglycemia Insulin Human Lispro (Humalog) 0 unit SUB-Q ACHS ANDREW; Protocol Morphine Sulfate (Morphine) 2 mg IV Q4H PRN PRN Reason: Pain, Moderate (4-6) Ondansetron HCl (Zofran) 4 mg IV Q8H PRN PRN Reason: Nausea And Vomiting Sodium Chloride (Sodium Chloride Flush Syringe 10 Ml) 10 ml IV BID ANDREW Sodium Chloride (Sodium Chloride Flush Syringe 10 Ml) 10 ml IV PRN PRN PRN Reason: LINE FLUSH Exam - Physical Exam Narrative exam: Gen. appearance: Patient lying in bed in no acute distress HEENT: Normocephalic/atraumatic, pupils equal round reactive to light, extra alkaline movement intact, no scleral icterus, no JVD or thyromegaly or nodule, neck is supple, mucous membrane moist, no erythema or exudate Heart: S1-S2, regular rate and rhythm Lungs: Clear bilateral breathing comfortable Abdomen: Positive bowel sounds, nontender, nondistended, no organomegaly Extremities: No edema, cyanosis, clubbing Neuro:: Oriented 3 , cranial nerves II-12 intact, speech, motor Skin: No rash, nodules, warm dry - Constitutional Vitals: Temp Pulse Resp BP Pulse Ox 98 F 80 13 124/66 99 06/16/18 22:56 06/17/18 02:03 06/17/18 02:03 06/17/18 02:03 06/17/18 02:03 Results - Labs CBC & Chem 7: 06/16/18 23:09 06/16/18 23:09 Labs: Abnormal lab results 06/16/18 06/16/18 Range/Units 23:09 23:09 WBC 2.7 L (4.5-11.0) K/mm3 Hgb 10.3 L (11.8-15.2) gm/dl Hct 31.4 L (35.5-45.6) % MCV 77 L (84-94) fl MCH 25 L (28-32) pg RDW 18.8 H (13.2-15.2) % [place] % (Auto) 12.3 H (0.0-7.3) % Eos % (Auto) 4.6 H (0.0-4.3) % Lymph # 0.9 L (1.2-5.4) K/mm3 Seg Neutrophils # 1.3 L (1.8-7.7) K/mm3 Glucose 103 H (75-100) mg/dL - Imaging and Cardiology Chest x-ray: report reviewed CT Scan - head: report reviewed Assessment and Plan Assessment Unstable angina Hematemesis, hemoglobin stable Acute CVA AFIB Diabetes CAD Plan Admit to medicine Check cardiac enzymes, consult cardiology, GI Check PT/INR, hold further anticoagulation for now Check fingersticks, initiate insulin sliding scale DVT prophalaxis
[2018-06-17 05:39] LABS: Basophils % (Auto) 1.5 % (0.0-1.8); Eosinophils # (Auto) 0.1 K/mm3 (0.0-0.4); Eosinophils % (Auto) 4.2 % (0.0-4.3); Hematocrit 31.2 % (35.5-45.6); Lymphocytes % (Auto) 39.1 % (13.4-35.0); Mean Corpuscular HGB Conc 32 % (32-34); Mean Corpuscular Volume 78 fl (84-94); Monocytes # (Auto) 0.3 K/mm3 (0.0-0.8); Platelet Count 180 K/mm3 (140-440); Red Blood Count 4.01 M/mm3 (3.65-5.03); Red Cell Distribution Width 18.7 % (13.2-15.2)
[2018-06-17 05:40] LABS: BUN/Creatinine Ratio 11; Blood Urea Nitrogen 12 mg/dL (9-20); Calcium 8.5 mg/dL (8.4-10.2); Creatine Kinase MB 2.2 ng/mL (0.0-4.0); Hemolysis Index 4; INR 1.17 (0.87-1.13); Partial Thromboplastin Time 25.5 Sec. (24.2-36.6)
[2018-06-17] MEDS: HumaLOG SUB-Q SCH ×4 (08:00→21:50)
[2018-06-17] MEDS ORDERED: MORPHINE ONE (08:18)
[2018-06-17] MEDS: MORPHINE IV PRN ×3 (08:24→21:48)
--- NOTE | 2018-06-17 09:26 | Consultation ---
Addendum entered and electronically signed by LLUVIA RUFF MD 06/17/18 13:57: Cardiac status is stable and asymptomatic, continue GI workup for atypical chest pain. Original Note: History of Present Illness Consult date: 06/17/18 Consult reason: chest pain History of present illness: Patient is a 37 year old male with multiple emergency room visits since April of this year. He returns with complaints of chest pain. Chest x-ray and cycles troponins are negative. His ECG is sinus rhythm with nonspecific [place] abnormalities. No change from his prior ECG. There is no history of coronary disease. In fact, he had a cardiac cath at [facility] December 2013, that reports normal coronaries, EF 65%. He is on clopidogrel for primary prevention of cardiovascular disease as he has an allergy to aspirin. He has had multiple negative stress thalliums over the last 2 years with his latest done at this hospital June 2017 that documents no ische amadou. Medications and Allergies Allergies Allergy/AdvReac Type Severity Reaction Status Date / Time aspirin Allergy Hives Verified 11/11/17 02:38 Home Medications Medication Instructions Recorded Confirmed Last Taken Type Atorvastatin Calcium [Lipitor] 10 mg PO DAILY 08/24/17 08/24/17 Unknown History Famotidine [Pepcid] 20 mg PO BID 08/24/17 08/24/17 Unknown History Nitroglycerin [Nitrostat] 0.4 mg SL Q5M PRN 08/24/17 08/24/17 Unknown History Carvedilol [Coreg] 12.5 mg PO BID #60 tablet 08/25/17 Unknown Rx Lisinopril [Zestril TAB] 2.5 mg PO QDAY #30 tablet 08/25/17 Unknown Rx Naproxen [Naprosyn] 500 mg PO BID PRN #12 tablet 05/06/18 Unknown Rx Docusate Sodium [Colace] 100 mg PO BID #30 capsule 05/13/18 Unknown Rx HYDROcodone/APAP 5-325 [[place] 1 each PO Q6HR PRN #14 tablet 05/13/18 Unknown Rx 5/325] Hydrocortisone [Anucort-HC SUPPOS] 25 mg RC BID #10 supp.rect 05/13/18 Unknown Rx Ibuprofen [Motrin] 800 mg PO Q8HR PRN #20 tablet 05/29/18 Unknown Rx methOCARBAMOL [Robaxin TAB] 500 mg PO Q6H PRN #15 tablet 05/29/18 Unknown Rx traMADol [Ultram] 50 mg PO Q6HR PRN #10 tablet 05/29/18 Unknown Rx traMADol [Ultram] 50 mg PO Q6HR PRN #30 tablet 06/05/18 Unknown Rx Active Meds: Active Medications Acetaminophen (Tylenol) 650 mg PO Q4H PRN PRN Reason: Pain MILD(1-3)/Fever >100.5/EGAN Dextrose (D50w (25gm) Syringe) 50 ml IV PRN PRN PRN Reason: Hypoglycemia Insulin Human Lispro (Humalog) 0 unit SUB-Q ACHS ANDREW; Protocol Last Admin: 06/17/18 08:00 Dose: Not Given Documented by: Morphine Sulfate (Morphine) 2 mg IV Q4H PRN PRN Reason: Pain, Moderate (4-6) Last Admin: 06/17/18 08:24 Dose: 2 mg Documented by: Ondansetron HCl (Zofran) 4 mg IV Q8H PRN PRN Reason: Nausea And Vomiting Sodium Chloride (Sodium Chloride Flush Syringe 10 Ml) 10 ml IV BID ANDREW Sodium Chloride (Sodium Chloride Flush Syringe 10 Ml) 10 ml IV PRN PRN PRN Reason: LINE FLUSH Physical Examination Vital Signs Temp Pulse Resp BP Pulse Ox 98 F 103 H 18 148/83 100 06/16/18 22:56 06/16/18 22:56 06/16/18 22:56 06/16/18 22:56 06/16/18 22:56 General appearance: no acute distress HEENT: Positive: PERRL Cardiac: Positive: Reg Rate and Rhythm Lungs: Positive: Decreased Breath Sounds Results 06/17/18 05:08 06/17/18 05:08 Cardiac Enzymes 06/17/18 Range/Units 05:08 CK-MB (CK-2) 2.2 (0.0-4.0) ng/mL Coagulation 06/17/18 Range/Units 05:08 PT 15.6 H (12.2-14.9) Sec. INR 1.17 H (0.87-1.13) APTT 25.5 (24.2-36.6) Sec. CBC 06/16/18 06/17/18 Range/Units 23:09 05:08 WBC 2.7 L 2.6 L (4.5-11.0) K/mm3 RBC 4.06 4.01 (3.65-5.03) M/mm3 Hgb 10.3 L 10.0 L (11.8-15.2) gm/dl Hct 31.4 L 31.2 L (35.5-45.6) % Plt Count 205 180 (140-440) K/mm3 Lymph # 0.9 L 1.0 L (1.2-5.4) K/mm3 [place] # 0.3 0.3 (0.0-0.8) K/mm3 Eos # 0.1 0.1 (0.0-0.4) K/mm3 Baso # 0.0 0.0 (0.0-0.1) K/mm3 Comprehensive Metabolic Panel 06/16/18 06/17/18 Range/Units 23:09 05:08 Sodium 144 141 (137-145) mmol/L Potassium 3.6 4.0 (3.6-5.0) mmol/L Chloride 106.3 106.7 (98-107) mmol/L Carbon Dioxide 27 25 (22-30) mmol/L BUN 12 12 (9-20) mg/dL Creatinine 1.1 1.1 (0.8-1.5) mg/dL Glucose 103 H 81 (75-100) mg/dL Calcium 9.0 8.5 (8.4-10.2) mg/dL Assessment and Plan Chest pain, atypical MPI June 2017 documents no ischemia. LHC at [facility] December 2013 reports normal coronaries, EF 65%. Aspirin allergy on clopidogrel for primary prevention of cardiovascular disease. No cardiac workup indicated.
--- NOTE | 2018-06-17 09:38 | Gastroenterology Consultation ---
Addendum entered and electronically signed by TARA RUBIO NP 06/17/18 10:30: spoke with cardiology with clearance given to proceed with EGD today. Original Note: <TARA RUBIO - Last Filed: 06/17/18 09:49> History of Present Illness - Reason for Consult Consult date: 06/17/18 hematemesis Requesting physician: UMER HYLTON - History of Present Illness Patient is a 37 y/o male with PMH of HTN, DM, HLD, TIA, CAD ([place] with stents 2014), A-fib (on plavix), DVT, PE, and asthma who presented to ED with c/o CP and hematemesis to which GI has been consulted. Cardiology following with no plans for intervention at this time. This morning patient was sitting on the side of the bed w/o acute distress. Reports vomiting with bright red blood yesterday. No melena, hematochezia, or active signs of bleeding this am. Admit to some mild upper abdominal pain and constipation. Denies fever, SOB, wt loss, dysphagia, or diarrhea. No NSAID use or hx of liver disease. Prior hx of PUD in approximately 2015 at [facility] following an endosopic evaluation with EGD/colonscopy per pt report. Patient is previously known to our service from a consult in 2017 for GI bleeding with recommendations for an EGD/colonoscopy at that time, however patient was D/C prior to workup being completed. Past History Past Medical History: other (as per HPI) Past Surgical History: Other (coronary stent) Social history: smoking Family history: diabetes, hypertension Medications and Allergies Allergies Allergy/AdvReac Type Severity Reaction Status Date / Time aspirin Allergy Hives Verified 11/11/17 02:38 Home Medications Medication Instructions Recorded Confirmed Last Taken Type Atorvastatin Calcium [Lipitor] 10 mg PO DAILY 08/24/17 08/24/17 Unknown History Famotidine [Pepcid] 20 mg PO BID 08/24/17 08/24/17 Unknown History Nitroglycerin [Nitrostat] 0.4 mg SL Q5M PRN 08/24/17 08/24/17 Unknown History Carvedilol [Coreg] 12.5 mg PO BID #60 tablet 08/25/17 Unknown Rx Lisinopril [Zestril TAB] 2.5 mg PO QDAY #30 tablet 08/25/17 Unknown Rx Naproxen [Naprosyn] 500 mg PO BID PRN #12 tablet 05/06/18 Unknown Rx Docusate Sodium [Colace] 100 mg PO BID #30 capsule 05/13/18 Unknown Rx HYDROcodone/APAP 5-325 [Teaberry 1 each PO Q6HR PRN #14 tablet 05/13/18 Unknown Rx 5/325] Hydrocortisone [Anucort-HC SUPPOS] 25 mg RC BID #10 supp.rect 05/13/18 Unknown Rx Ibuprofen [Motrin] 800 mg PO Q8HR PRN #20 tablet 05/29/18 Unknown Rx methOCARBAMOL [Robaxin TAB] 500 mg PO Q6H PRN #15 tablet 05/29/18 Unknown Rx traMADol [Ultram] 50 mg PO Q6HR PRN #10 tablet 05/29/18 Unknown Rx traMADol [Ultram] 50 mg PO Q6HR PRN #30 tablet 06/05/18 Unknown Rx Active Meds: Active Medications Acetaminophen (Tylenol) 650 mg PO Q4H PRN PRN Reason: Pain MILD(1-3)/Fever >100.5/EGAN Dextrose (D50w (25gm) Syringe) 50 ml IV PRN PRN PRN Reason: Hypoglycemia Insulin Human Lispro (Humalog) 0 unit SUB-Q [facility]; Protocol Last Admin: 06/17/18 08:00 Dose: Not Given Documented by: Morphine Sulfate (Morphine) 2 mg IV Q4H PRN PRN Reason: Pain, Moderate (4-6) Last Admin: 06/17/18 08:24 Dose: 2 mg Documented by: Ondansetron HCl (Zofran) 4 mg IV Q8H PRN PRN Reason: Nausea And Vomiting Sodium Chloride (Sodium Chloride Flush Syringe 10 Ml) 10 ml IV BID [facility] Sodium Chloride (Sodium Chloride Flush Syringe 10 Ml) 10 ml IV PRN PRN PRN Reason: LINE FLUSH medications reviewed/updated as required Review of Systems - Review of Systems All systems: negative Gastrointestinal: abdominal pain (epigastric ), constipation, hematemesis Exam - Constitutional Vital Signs: Temp Pulse Resp BP Pulse Ox 97.4 F L 71 18 131/77 97 06/17/18 09:31 06/17/18 09:30 06/17/18 09:30 06/17/18 09:30 06/17/18 09:30 General appearance: no acute distress - EENT Eyes: PERRL, EOM intact ENT: hearing intact - Respiratory Respiratory: bilateral: CTA - Cardiovascular Rhythm: regular Heart Sounds: Present: S1 & S2 - Gastrointestinal General gastrointestinal: Present: soft, tender (slight TTP in epigastric), non- distended, normal bowel sounds - Neurologic Neurological: alert and oriented x3 - Labs CBC & Chem 7: 06/17/18 05:08 06/17/18 05:08 Lab Results: Laboratory Results - last 24 hr 06/16/18 06/16/18 06/17/18 23:09 23:09 02:35 WBC 2.7 L RBC 4.06 Hgb 10.3 L Hct 31.4 L MCV 77 L MCH 25 L MCHC 33 RDW 18.8 H Plt Count 205 Lymph % (Auto) 34.2 Worth % (Auto) 12.3 H Eos % (Auto) 4.6 H Baso % (Auto) 1.5 Lymph # 0.9 L [place] # 0.3 Eos # 0.1 Baso # 0.0 Seg Neutrophils % 47.4 Seg Neutrophils # 1.3 L PT INR APTT Sodium 144 Potassium 3.6 Chloride 106.3 Carbon Dioxide 27 Anion Gap 14 BUN 12 Creatinine 1.1 Estimated GFR > 60 BUN/Creatinine Ratio 11 Glucose 103 H POC Glucose Calcium 9.0 Total Creatine Kinase CK-MB (CK-2) CK-MB (CK-2) Rel Index Troponin T < 0.010 < 0.010 06/17/18 06/17/18 06/17/18 05:08 05:08 05:08 WBC 2.6 L RBC 4.01 Hgb 10.0 L Hct 31.2 L MCV 78 L MCH 25 L MCHC 32 RDW 18.7 H Plt Count 180 Lymph % (Auto) 39.1 H [place] % (Auto) 13.0 H Eos % (Auto) 4.2 Baso % (Auto) 1.5 Lymph # 1.0 L [place] # 0.3 Eos # 0.1 Baso # 0.0 Seg Neutrophils % 42.2 Seg Neutrophils # 1.1 L PT 15.6 H INR 1.17 H APTT 25.5 Sodium 141 Potassium 4.0 Chloride 106.7 Carbon Dioxide 25 Anion Gap 13 BUN 12 Creatinine 1.1 Estimated GFR > 60 BUN/Creatinine Ratio 11 Glucose 81 POC Glucose Calcium 8.5 Total Creatine Kinase CK-MB (CK-2) CK-MB (CK-2) Rel Index Troponin T 06/17/18 06/17/18 05:08 08:04 WBC RBC Hgb Hct MCV MCH MCHC RDW Plt Count Lymph % (Auto) [place] % (Auto) Eos % (Auto) Baso % (Auto) Lymph # [place] # Eos # Baso # Seg Neutrophils % Seg Neutrophils # PT INR APTT Sodium Potassium Chloride Carbon Dioxide Anion Gap BUN Creatinine Estimated GFR BUN/Creatinine Ratio Glucose POC Glucose 80 Calcium Total Creatine Kinase 332 H CK-MB (CK-2) 2.2 CK-MB (CK-2) Rel Index 0.6 Troponin T < 0.010 Assessment and Plan 1.hematemesis 2.H/o PUD? -LFTs WNL -INR 1.17 -H/H 10.0/31.2-relatively stable compared to previous labs -continue to monitor H/H and transfuse as needed -hold blood thinning medications -reports vomiting bright red blood yesterday- No melena or hematochezia. -currently HD stable with no active signs of bleeding today -last EGD/colonoscopy in approximately 2016 at [facility] revealed peptic ulcers per pt report -etiology- possible ulcer vs other -will schedule for EGD today for further evaluation -Keep NPO -continue PPI and supportive care -will follow -2.constipation -likely 2/2 narcotic use -start on daily Miralax <RAMIRO MARAVILLA - Last Filed: 06/17/18 10:55> Medications and Allergies Active Meds: Active Medications Acetaminophen (Tylenol) 650 mg PO Q4H PRN PRN Reason: Pain MILD(1-3)/Fever >100.5/EGAN Dextrose (D50w (25gm) Syringe) 50 ml IV PRN PRN PRN Reason: Hypoglycemia Sodium Chloride (Nacl 0.9% 1000 Ml) 1,000 mls @ 50 mls/hr IV DIRECT ANDREW Last Admin: 06/17/18 10:33 Dose: 50 mls/hr Documented by: Insulin Human Lispro (Humalog) 0 unit SUB-Q [facility] ANDREW; Protocol Last Admin: 06/17/18 08:00 Dose: Not Given Documented by: Morphine Sulfate (Morphine) 2 mg IV Q4H PRN PRN Reason: Pain, Moderate (4-6) Last Admin: 06/17/18 08:24 Dose: 2 mg Documented by: Ondansetron HCl (Zofran) 4 mg IV Q8H PRN PRN Reason: Nausea And Vomiting Pantoprazole Sodium (Protonix) 40 mg IV BID ANDREW Polyethylene Glycol (Miralax 3350) 17 gm PO QDAY ANDREW Sodium Chloride (Sodium Chloride Flush Syringe 10 Ml) 10 ml IV BID ANDREW Sodium Chloride (Sodium Chloride Flush Syringe 10 Ml) 10 ml IV PRN PRN PRN Reason: LINE FLUSH Exam - Constitutional Vital Signs: Temp Pulse Resp BP Pulse Ox 97.7 F 89 12 129/55 98 06/17/18 10:24 06/17/18 10:37 06/17/18 10:37 06/17/18 10:37 06/17/18 10:37 - Labs CBC & Chem 7: 06/17/18 05:08 06/17/18 05:08 Lab Results: Laboratory Results - last 24 hr 06/16/18 06/16/18 06/17/18 23:09 23:09 02:35 WBC 2.7 L RBC 4.06 Hgb 10.3 L Hct 31.4 L MCV 77 L MCH 25 L MCHC 33 RDW 18.8 H Plt Count 205 Lymph % (Auto) 34.2 Worth % (Auto) 12.3 H Eos % (Auto) 4.6 H Baso % (Auto) 1.5 Lymph # 0.9 L [place] # 0.3 Eos # 0.1 Baso # 0.0 Seg Neutrophils % 47.4 Seg Neutrophils # 1.3 L PT INR APTT Sodium 144 Potassium 3.6 Chloride 106.3 Carbon Dioxide 27 Anion Gap 14 BUN 12 Creatinine 1.1 Estimated GFR > 60 BUN/Creatinine Ratio 11 Glucose 103 H POC Glucose Calcium 9.0 Total Creatine Kinase CK-MB (CK-2) CK-MB (CK-2) Rel Index Troponin T < 0.010 < 0.010 06/17/18 06/17/18 06/17/18 05:08 05:08 05:08 WBC 2.6 L RBC 4.01 Hgb 10.0 L Hct 31.2 L MCV 78 L MCH 25 L MCHC 32 RDW 18.7 H Plt Count 180 Lymph % (Auto) 39.1 H [place] % (Auto) 13.0 H Eos % (Auto) 4.2 Baso % (Auto) 1.5 Lymph # 1.0 L [place] # 0.3 Eos # 0.1 Baso # 0.0 Seg Neutrophils % 42.2 Seg Neutrophils # 1.1 L PT 15.6 H INR 1.17 H APTT 25.5 Sodium 141 Potassium 4.0 Chloride 106.7 Carbon Dioxide 25 Anion Gap 13 BUN 12 Creatinine 1.1 Estimated GFR > 60 BUN/Creatinine Ratio 11 Glucose 81 POC Glucose Calcium 8.5 Total Creatine Kinase CK-MB (CK-2) CK-MB (CK-2) Rel Index Troponin T 06/17/18 06/17/18 06/17/18 05:08 08:04 09:31 WBC RBC Hgb Hct MCV MCH MCHC RDW Plt Count Lymph % (Auto) Worth % (Auto) Eos % (Auto) Baso % (Auto) Lymph # Worth # Eos # Baso # Seg Neutrophils % Seg Neutrophils # PT INR APTT Sodium Potassium Chloride Carbon Dioxide Anion Gap BUN Creatinine Estimated GFR BUN/Creatinine Ratio Glucose POC Glucose 80 Calcium Total Creatine Kinase 332 H 330 H CK-MB (CK-2) 2.2 2.5 CK-MB (CK-2) Rel Index 0.6 0.7 Troponin T < 0.010 < 0.010 Assessment and Plan Pt seen and examined. Agree with note above. Will plan for EGD today given reported hematemesis and h/o PUD.
[2018-06-17] MEDS ORDERED: PROTONIX IV SCH (10:00)
[2018-06-17 10:24] LABS: Creatine Kinase MB 2.5 ng/mL (0.0-4.0)
[2018-06-17] MEDS ORDERED: NITROSTAT SL ONE (10:24)
[2018-06-17] MEDS ORDERED: WATER FOR IRRIG STERILE IR ONE (10:31)
[2018-06-17] MEDS: NACL 0.9% 1000 ML 1,000 ML IV SCH (10:33)
[2018-06-17] MEDS ORDERED: HURRICAINE ONE 20% TOPICAL SPRAY MM ×3 (10:35→10:50)
[2018-06-17] MEDS ORDERED: VERSED ONE (10:35)
[2018-06-17] MEDS ORDERED: DIPRIVAN 10 MG/ML IV ONE (10:36)
[2018-06-17] MEDS ORDERED: KETALAR ONE (10:36)
[2018-06-17] MEDS ORDERED: SUBLIMAZE ONE (10:36)
--- NOTE | 2018-06-17 10:59 | Operative Report ---
Operative Report Operative Report: Esophagogastroduodenoscopy Procedure Note Date of procedure: 06/17/2018 Endoscopist: Girma Lemon Pre-op diagnosis: Hematemesis Post-op diagnosis: Mild gastritis, otherwise unremarkable upper endoscopy Anesthesia: MAC Complications: No immediate complications Estimated blood loss: None Procedure: After consent was obtained, the patient was placed in the left lateral decubitus position. The fujinon endoscope was inserted into the patient's mouth under direct vision, and advanced into the 2nd portion of the duodenum without difficulty. The patient tolerated the procedure well. The views of the mucosa were good. Patient's vital signs were monitored continuously throughout the procedure. Findings: The esophagus appeared normal. There was moderate amount of retained liquid in the proximal portion of the stomach. There was mild erythematous mucosa in the antrum of the stomach. No blood was seen in the stomach or high risk bleeding lesions. The duodenum appeared normal with bile seen throughout the visualized portion of duodenum. Impression: 1. Mild gastritis 2. retained clear liquid in stomach No blood seen during the procedure or high risk bleeding lesions. Recommendations: -anti-acid medication daily -avoid NSAIDs Will sign off, please call as needed or with questions.
--- NOTE | 2018-06-17 11:10 | Anesthesia Day of Surgery ---
Anesthesia Day of Surgery - Day of Surgery Patient Examined: Yes Patient H&P Reviewed: Yes Patient is NPO: Yes Beta Blockers: No Cardiac Clearance: Yes (06/17 - per note, despite patient's repeated atypical chest pain.) Pulmonary Clearance: Yes
--- NOTE | 2018-06-17 11:24 | Anesthesia Consultation ---
Anesthesia Consult and Med Hx Date of service: 06/17/18 - Airway Anesthetic Teeth Evaluation: Poor ROM Head & Neck: Adequate Mental/Hyoid Distance: Adequate (ASA4E very high risk patient with multiple comorbidities, chief of which is unstable angina with aggressive unremarkable workout (cardiology clearance in chart - negative troponins, no ST elevation, normal 12 lead) however this am said that his atypical chest pain now appears different. States that it feels like someone is sitting on his chest. Nitroglycerin was given along with 4L/min nasal canula to improve oxygenation. Decision to proceed after attending to attending conversation about anesthesia risks in a high risk patient with likely active cardiac event. Pt would receive minimal sedation along with topicalization for procedure.) Mallampati Class: Class III - Pulmonary Exam CTA: Yes - Cardiac Exam Cardiac Exam: RRR - Pre-Operative Health Status ASA Pre-Surgery Classification: ASA4 - Pulmonary Hx Smoking: Yes Hx Asthma: Yes Hx Pneumonia: No Hx Sleep Apnea: Yes - Cardiovascular System Hx Hypertension: Yes Hx Coronary Artery Disease: Yes Hx Heart Attack/AMI: Yes (2 stents placed 2016) Hx Angina: Yes - Central Nervous System CVA: Yes (2016) Hx Back Pain: No Hx Psychiatric Problems: No - Gastrointestinal Hx Ulcer: No - Endocrine Hx End Stage Renal Disease: No Hx Cirrhosis: No Hx Hypothyroidism: No Hx Hyperthyroidism: No - Hematic Hx Anemia: No - Other Systems Hx Alcohol Use: Yes (social drinker) Hx Substance Use: No Hx Cancer: No Hx Obesity: No
[2018-06-17] MEDS: MIRALAX 3350 PO SCH (12:40)
[2018-06-17] MEDS: SODIUM CHLORIDE FLUSH SYRINGE 10 ML IV SCH ×2 (12:40→21:49)
--- NOTE | 2018-06-17 18:07 | Event Note ---
Date: 06/17/18 This is the second IMS visit of the day Patient offers no specific complaints Vital signs are stable MD ruled out Status post EGD Findings reviewed Medically stable
[2018-06-17] MEDS: PROTONIX PO SCH (21:49)
[2018-06-18] MEDS: NACL 0.9% 1000 ML 1,000 ML IV SCH (06:48)
[2018-06-18] MEDS: MORPHINE IV PRN ×2 (06:51→10:26)
[2018-06-18 07:35] LABS: Hematocrit 32.5 % (35.5-45.6); Hemoglobin 10.4 gm/dl (11.8-15.2); Mean Corpuscular HGB Conc 32 % (32-34); Mean Corpuscular Volume 77 fl (84-94); Platelet Count 183 K/mm3 (140-440); Red Blood Count 4.23 M/mm3 (3.65-5.03); Red Cell Distribution Width 18.3 % (13.2-15.2)
[2018-06-18] MEDS: HumaLOG SUB-Q SCH ×3 (08:02→16:46)
[2018-06-18] MEDS: PROTONIX PO SCH ×2 (09:12→21:53)
[2018-06-18] MEDS: SODIUM CHLORIDE FLUSH SYRINGE 10 ML IV SCH (10:00)
[2018-06-18] MEDS: MIRALAX 3350 PO SCH (10:00)
[2018-06-18] MEDS ORDERED: PNEUMOVAX 23 IM ONE (12:00)
[2018-06-18] MEDS ORDERED: AFLURIA QUAD 2018-2019 SYRINGE IM ONE (12:00)
--- NOTE | 2018-06-18 12:15 | Progress Note ---
Addendum entered and electronically signed by LLUVIA RUFF MD 06/18/18 17:13: Conservative cardiac management, continue medical therapy. Original Note: Assessment and Plan Chest pain, atypical EGD: Mild gastritis MPI June 2017 documents no ischemia. LHC at [facility] December 2013 reports normal coronaries, EF 65%. Aspirin allergy on clopidogrel for primary prevention of cardiovascular disease. Conservative cardiac management. We will follow intermittently. Subjective Date of service: 06/18/18 Interval history: Patient complains of generalized pain. No distress noted. Objective Vital Signs Temp Pulse Resp Resp BP Pulse Ox 06/18/18 11:22 98.0 F 81 20 120/47 96 06/18/18 10:26 20 06/18/18 10:00 99 06/18/18 08:05 98.2 F 73 20 100/55 98 06/18/18 07:00 80 06/18/18 03:38 98.3 F 82 18 106/65 96 06/17/18 23:00 81 06/17/18 22:00 20 06/17/18 21:48 20 06/17/18 20:43 99 06/17/18 20:17 98.5 F 83 18 111/60 98 06/17/18 16:07 98.3 F 06/17/18 16:04 98.3 F 93 H 18 106/64 95 - Physical Examination General: No Apparent Distress HEENT: Positive: PERRL Neck: Positive: trachea midline Cardiac: Positive: Reg Rate and Rhythm Lungs: Positive: Decreased Breath Sounds Neuro: Positive: Grossly Intact - Labs and Meds CBC 06/18/18 Range/Units 06:57 WBC 2.7 L (4.5-11.0) K/mm3 RBC 4.23 (3.65-5.03) M/mm3 Hgb 10.4 L (11.8-15.2) gm/dl Hct 32.5 L (35.5-45.6) % Plt Count 183 (140-440) K/mm3
--- NOTE | 2018-06-18 12:36 | Discharge Summary ---
Providers - Providers Date of Admission: 06/17/18 05:59 Date of discharge: 06/20/18 Attending physician: TAMAR HINES 06/17/18 03:31 Consult to Physician [CONS] Routine Comment: Consulting Provider: ABEBE MENDES Physician Instructions: Reason For Exam: cp 06/17/18 04:32 Consult to Physician [CONS] Routine Comment: Consulting Provider: CAYETANO KUO Physician Instructions: Reason For Exam: henatemesis [facility] Reason for admission: atypical chest pain Condition: Fair Pertinent studies: CT head; normal study chest x-ray; no acute abnormality Procedures: EGD; mild gastritis, retained clear liquid and stomach No blood or bleeding noted during the procedure Advised antacid, avoid NSAIDs Hospital course: 37-year-old male patient with significant history of diabetes mellitus hypertension coronary artery disease was admitted through emergency room with atypical chest pain., Patient was symptomatically managed subsequently evaluated by GI and cardiology Patient's medications were optimized symptoms significantly improved, Patient underwent EGD esophagus normal moderate amount of retained fluid in the proximal patient of stomach mild gastritis retained clear liquids in the stomach advised antacid medications and avoid NSAIDs Patient prefers to stay in the hospital and left AMA even before the morning around . Caregivers advised not to leave AMA medicine consequences explained However patient signed the necessary documents and left AMA Discharge diagnosis; --Hematemesis, hemoglobin stable s/p EGD : gastritis,avoid NSAIDS,cont protonix f/u GI upon discharge --Chronic Constipation: of 1 mth no improvement with Stool softners,dulcolax suppository Enema as needed. --Unstable angina/Atypical chest pain: non cardiac,probably sec to Gastrtis, Pt had neg stress test Negatve cath 12/2013 , cardiology evaluated, no further w/u Cleared by cardiology and GI Disposition: DC-07 LEFT AGAINST MED ADVICE Time spent for discharge: 32 min Core Measure Documentation - Palliative Care Palliative Care/ Comfort Measures: Not Applicable - Core Measures Any of the following diagnoses?: none Exam - Constitutional Vitals: Temp Pulse Resp BP Pulse Ox 98.0 F 81 20 120/47 96 06/18/18 11:22 06/18/18 11:22 06/18/18 11:22 06/18/18 11:22 06/18/18 11:22 General appearance: Present: no acute distress, well-nourished - EENT Eyes: Present: PERRL, EOM intact - Neck Neck: Present: supple, normal ROM - Respiratory Respiratory effort: normal Respiratory: bilateral: diminished, negative: rales, rhonchi, wheezing - Cardiovascular Rhythm: regular Heart Sounds: Present: S1 & S2 - Extremities Extremities: no ischemia, No edema - Abdominal General gastrointestinal: Present: soft, non-tender, non-distended, normal bowel sounds - Integumentary Integumentary: Present: clear, warm - Musculoskeletal Musculoskeletal: strength equal bilaterally - Psychiatric Psychiatric: appropriate mood/affect, cooperative - Neurologic Neurologic: CNII-XII intact, moves all extremities Plan Activity: advance as tolerated Diet: regular Special Instructions: smoking cessation Additional Instructions: Smoking cessation advised. Avoid NSAID group of pain medications. Advised exercise and weight reduction [place] [Primary Care Provider] - 3-5 Days LLUVIA RUFF MD [Staff Physician] - 7 Days RAMIRO MARAVILLA MD [Staff Physician] - 7 Days Prescriptions: Bisacodyl [Dulcolax] 10 mg PO DAILY PRN #14 tab PRN Reason: Constipation Nicotine [Habitrol] 21 mg TD DAILY #30 patch Pantoprazole [Protonix TAB] 40 mg PO BID #60 tablet
[2018-06-18] MEDS ORDERED: MILK OF MAGNESIA PO ONE ×2 (12:53→16:32)
[2018-06-18] MEDS ORDERED: DULCOLAX PR PRN (12:53)
[2018-06-18] MEDS ORDERED: DULCOLAX PR ONE ×2 (12:53→16:29)
[2018-06-18] MEDS ORDERED: MILK OF MAGNESIA PO PRN (12:53)
--- NOTE | 2018-06-18 18:27 | Progress Note ---
Assessment and Plan Assessment and plan: --Unstable angina/Atypical chest pain: non cardiac,probablysec to Gastrtis Pt had neg stress test Negatve cath 12/2013 cardiology evaluated, no further w/u --Hematemesis, hemoglobin stable s/p EGD : gastritis,avoid NSAIDS,cont protonix GI following --Chronic Constipation: of 1 mth Stool softners,dulcolax suppository Enema as needed. GI following --DVT prophylaxis: History Interval history: Patient seen and examined medical records reviewed GI and cardiology cleared for discharge. c/o abdominal pain,h/o constipation of 1 mth. Denies N/V vtal signs reviewed Hospitalist Physical - Constitutional Vitals: Temp Pulse Resp BP Pulse Ox 98.0 F 87 20 127/71 98 06/18/18 16:17 06/18/18 16:17 06/18/18 16:17 06/18/18 16:17 06/18/18 16:17 General appearance: Present: no acute distress, well-nourished - EENT Eyes: Present: PERRL, EOM intact - Neck Neck: Present: supple, normal ROM - Respiratory Respiratory effort: normal Respiratory: bilateral: diminished, negative: rales, rhonchi, wheezing - Cardiovascular Rhythm: regular Heart Sounds: Present: S1 & S2 - Extremities Extremities: no ischemia, No edema - Abdominal General gastrointestinal: soft, non-tender, non-distended, normal bowel sounds - Integumentary Integumentary: Present: clear, warm - Psychiatric Psychiatric: appropriate mood/affect, cooperative - Neurologic Neurologic: CNII-XII intact, moves all extremities Results - Labs CBC & Chem 7: 06/18/18 06:57 06/17/18 05:08 Labs: Laboratory Last Values WBC 2.7 K/mm3 (4.5-11.0) L 06/18/18 06:57 RBC 4.23 M/mm3 (3.65-5.03) 06/18/18 06:57 Hgb 10.4 gm/dl (11.8-15.2) L 06/18/18 06:57 Hct 32.5 % (35.5-45.6) L 06/18/18 06:57 MCV 77 fl (84-94) L 06/18/18 06:57 MCH 25 pg (28-32) L 06/18/18 06:57 MCHC 32 % (32-34) 06/18/18 06:57 RDW 18.3 % (13.2-15.2) H 06/18/18 06:57 Plt Count 183 K/mm3 (140-440) 06/18/18 06:57 Lymph % (Auto) 39.1 % (13.4-35.0) H 06/17/18 05:08 [place] % (Auto) 13.0 % (0.0-7.3) H 06/17/18 05:08 Eos % (Auto) 4.2 % (0.0-4.3) 06/17/18 05:08 Baso % (Auto) 1.5 % (0.0-1.8) 06/17/18 05:08 Lymph # 1.0 K/mm3 (1.2-5.4) L 06/17/18 05:08 [place] # 0.3 K/mm3 (0.0-0.8) 06/17/18 05:08 Eos # 0.1 K/mm3 (0.0-0.4) 06/17/18 05:08 Baso # 0.0 K/mm3 (0.0-0.1) 06/17/18 05:08 Seg Neutrophils % 42.2 % (40.0-70.0) 06/17/18 05:08 Seg Neutrophils # 1.1 K/mm3 (1.8-7.7) L 06/17/18 05:08 PT 15.6 Sec. (12.2-14.9) H 06/17/18 05:08 INR 1.17 (0.87-1.13) H 06/17/18 05:08 APTT 25.5 Sec. (24.2-36.6) 06/17/18 05:08 Sodium 141 mmol/L (137-145) 06/17/18 05:08 Potassium 4.0 mmol/L (3.6-5.0) 06/17/18 05:08 Chloride 106.7 mmol/L (98-107) 06/17/18 05:08 Carbon Dioxide 25 mmol/L (22-30) 06/17/18 05:08 Anion Gap 13 mmol/L 06/17/18 05:08 BUN 12 mg/dL (9-20) 06/17/18 05:08 Creatinine 1.1 mg/dL (0.8-1.5) 06/17/18 05:08 Estimated GFR > 60 ml/min 06/17/18 05:08 BUN/Creatinine Ratio 11 % 06/17/18 05:08 Glucose 81 mg/dL (75-100) 06/17/18 05:08 POC Glucose 81 (70-105) 06/18/18 16:19 Calcium 8.5 mg/dL (8.4-10.2) 06/17/18 05:08 Total Creatine Kinase 330 units/L (55-170) H 06/17/18 09:31 CK-MB (CK-2) 2.5 ng/mL (0.0-4.0) 06/17/18 09:31 CK-MB (CK-2) Rel Index 0.7 (0-4) 06/17/18 09:31 Troponin T < 0.010 ng/mL (0.00-0.029) 06/17/18 09:31 Nutrition/Malnutrition Assess - Dietary Evaluation Nutrition/Malnutrition Findings: Nutrition Notes Start: 06/18/18 09:13 Freq: Status: Active Protocol: Document 06/18/18 12:26 ZORAN (Rec: 06/18/18 14:02 ZORAN [email or web address]) Co-Sign 06/18/18 12:26 LP Nutrition Notes 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 loss of 12.6% BW in less than one month Weight Status Obese Subjective/Other Information Pt screened for MST. Pt. stated he has not had an appetite for the past several weeks. 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 Pt. reported eating less than 25% of meal trays. Pt reported experiencing constipation that has lasted for about a month, as well as nausea. Pt. stated constipation has not improved with fiber/fluid intake or laxatives. Pt. denied vomitting and diarrhea. Pt. reported experiencing swallowing difficulties with fluids. Per pt. doctor, she will touch base with pt. and determine if DOCK BUILDER consult is warrented. Pt. doctor aware of constipation. Polisher Aluminum did not observe signs of muscle/fat wasting. Percent of energy/protein needs met: <25%/25% Burn Absent Trauma Absent GI Symptoms Constipation Food Allergy No Current % PO Poor (25-49%) Minimum of two criteria Yes Energy Intake (non-severe) <75% Estimated Energy Requirement >7 days Interpretation of Weight Loss (severe) >5% in 1 month #1 Nutrition Diagnosis Malnutrition Etiology Constipation, nausea As Evidenced by Signs and Symptoms intakes of less than 75% of needs in 7 days, wt. loss of 12.6% BW in one month Is patient on ventilator? No Is Patient Ambulatory and/or Out of Bed Yes REE-([place]-St. Jeor-ambulatory/OOB) [ 2520.050 [id number]] Kcal/Kg value to use for calculation 20 Approximate Energy Requirements Using 8 kcal/Kg Calculation Used for Recommendations Kcal/kg Additional Notes AdjBW: 86.5 kg Pro needs: 104-130g/day (1.2-1 .5 g/kg AdjBW) Fluid needs: 1 ml/kcal Nutrition Intervention Change Diet Order: Continue cardiac/consistent CHO diet Goal #1 PO and ONS intakes to meet at least 75% of energy and protein needs Anticipated Discharge Needs: Cardiac/consistent CHO diet Follow-Up By: 06/20/18 Additional Comments F/u for PO intakes, POC
[2018-06-19] MEDS: HumaLOG SUB-Q SCH ×5 (07:20→22:00)
[2018-06-19] MEDS: SODIUM CHLORIDE FLUSH SYRINGE 10 ML IV SCH ×3 (07:21→22:00)
--- NOTE | 2018-06-19 09:41 | XRay Report ---
AP ABDOMEN: HISTORY: Constipation one month. There is moderate stool throughout the colon and rectum. The abdominal gas pattern is unremarkable. No masses or organomegaly is identified and there is no gross evidence of free air or fluid. No significant soft tissue calcifications are noted. IMPRESSION: Fecal retention.
[2018-06-19] MEDS: MIRALAX 3350 PO SCH (10:18)
[2018-06-19] MEDS: PROTONIX PO SCH ×2 (10:18→22:00)
[2018-06-19] MEDS ORDERED: CITRATE OF MAGNESIA PO ONE ×2 (12:07→14:00)
--- NOTE | 2018-06-19 13:53 | Gastroenterology Progress Note ---
Assessment and Plan 1.constipation 2.anemia 3.hematemesis-resolved -H/H 10.4/32.5-stable -continue to monitor H/H and transfuse as needed -KUB this am showed fecal retention -s/p EGD 06/17 that showed mild gastritis -recommended colonoscopy in 2016 for anemia but it was done -patient reports constipation x 1 month -etiology unclear- possibly 2/2 narcotic use vs other -clinically, patient is stable. Reports generalized abd discomfort described as fullness associated with constipation. No N/V or active signs of bleeding. Tolerating diet. -will schedule for colonoscopy tomorrow for further evaluation (r/o malignancy) -clear liquids diet now, then NPO after MN -avoid NSAIDs -limit narcotics -continue PPI and supportive care -will follow Subjective Date of service: 06/19/18 Principal diagnosis: constipation Interval history: GI has been re-consulted on this patient for constipation. Patient sitting in bedside chair this afternoon. Reports no BM in last few weeks. Admits to generalized abd discomfort described as fullness. No N/V or signs of bleeding. Tolerating diet. Objective - Constitutional Vitals: Temp Pulse Resp BP Pulse Ox 98.7 F 80 20 95/51 98 06/19/18 08:17 06/19/18 10:00 06/19/18 10:00 06/19/18 08:17 06/19/18 10:00 General appearance: no acute distress - Respiratory Respiratory: bilateral: CTA - Cardiovascular Rhythm: regular Heart Sounds: Present: S1 & S2 - Gastrointestinal General gastrointestinal: Present: soft, non-tender, non-distended, normal bowel sounds - Labs CBC & Chem 7: 06/18/18 06:57 06/17/18 05:08 Labs: Laboratory Results - last 24 hr 06/18/18 06/18/18 06/19/18 16:19 22:28 05:42 POC Glucose 81 74 69 L 06/19/18 10:58 POC Glucose 113 H
[2018-06-19] MEDS ORDERED: GOLYTELY PO ONE (16:00)
[2018-06-19] MEDS ORDERED: COREG PO SCH (22:00)
--- NOTE | 2018-06-19 22:09 | Progress Note ---
Assessment and Plan Assessment and plan: --Chronic Constipation: of 1 mth no improvement with Stool softners,dulcolax suppository Enema as needed. GI following, possible colonoscopy tomorrow --Unstable angina/Atypical chest pain: non cardiac,probably sec to Gastrtis, Pt had neg stress test Negatve cath 12/2013 , cardiology evaluated, no further w/u --Hematemesis, hemoglobin stable s/p EGD : gastritis,avoid NSAIDS,cont protonix GI following --DVT prophylaxis:Lovenox f/u colonoscopy ,if neg and if pt is stable May discharge home tomorrow. History Interval history: Patientseen and examined, Medical records reviewed Did not have BM even after stool softeners and supossitories No new complains Vital signs reviewed Hospitalist Physical - Constitutional Vitals: Temp Pulse Resp BP Pulse Ox 98.2 F 85 18 102/71 97 06/19/18 16:47 06/19/18 16:47 06/19/18 16:47 06/19/18 16:47 06/19/18 16:47 General appearance: Present: no acute distress, well-nourished - EENT Eyes: Present: PERRL, EOM intact - Neck Neck: Present: supple, normal ROM - Respiratory Respiratory effort: normal Respiratory: negative: rales, rhonchi, wheezing - Cardiovascular Rhythm: regular Heart Sounds: Present: S1 & S2 - Extremities Extremities: no ischemia, No edema - Abdominal General gastrointestinal: soft, non-tender, non-distended, normal bowel sounds - Integumentary Integumentary: Present: clear, warm - Psychiatric Psychiatric: appropriate mood/affect, cooperative - Neurologic Neurologic: moves all extremities Results - Labs CBC & Chem 7: 06/18/18 06:57 06/17/18 05:08 Labs: Laboratory Last Values WBC 2.7 K/mm3 (4.5-11.0) L 06/18/18 06:57 RBC 4.23 M/mm3 (3.65-5.03) 06/18/18 06:57 Hgb 10.4 gm/dl (11.8-15.2) L 06/18/18 06:57 Hct 32.5 % (35.5-45.6) L 06/18/18 06:57 MCV 77 fl (84-94) L 06/18/18 06:57 MCH 25 pg (28-32) L 06/18/18 06:57 MCHC 32 % (32-34) 06/18/18 06:57 RDW 18.3 % (13.2-15.2) H 06/18/18 06:57 Plt Count 183 K/mm3 (140-440) 06/18/18 06:57 Lymph % (Auto) 39.1 % (13.4-35.0) H 06/17/18 05:08 [place] % (Auto) 13.0 % (0.0-7.3) H 06/17/18 05:08 Eos % (Auto) 4.2 % (0.0-4.3) 06/17/18 05:08 Baso % (Auto) 1.5 % (0.0-1.8) 06/17/18 05:08 Lymph # 1.0 K/mm3 (1.2-5.4) L 06/17/18 05:08 [place] # 0.3 K/mm3 (0.0-0.8) 06/17/18 05:08 Eos # 0.1 K/mm3 (0.0-0.4) 06/17/18 05:08 Baso # 0.0 K/mm3 (0.0-0.1) 06/17/18 05:08 Seg Neutrophils % 42.2 % (40.0-70.0) 06/17/18 05:08 Seg Neutrophils # 1.1 K/mm3 (1.8-7.7) L 06/17/18 05:08 PT 15.6 Sec. (12.2-14.9) H 06/17/18 05:08 INR 1.17 (0.87-1.13) H 06/17/18 05:08 APTT 25.5 Sec. (24.2-36.6) 06/17/18 05:08 Sodium 141 mmol/L (137-145) 06/17/18 05:08 Potassium 4.0 mmol/L (3.6-5.0) 06/17/18 05:08 Chloride 106.7 mmol/L (98-107) 06/17/18 05:08 Carbon Dioxide 25 mmol/L (22-30) 06/17/18 05:08 Anion Gap 13 mmol/L 06/17/18 05:08 BUN 12 mg/dL (9-20) 06/17/18 05:08 Creatinine 1.1 mg/dL (0.8-1.5) 06/17/18 05:08 Estimated GFR > 60 ml/min 06/17/18 05:08 BUN/Creatinine Ratio 11 % 06/17/18 05:08 Glucose 81 mg/dL (75-100) 06/17/18 05:08 POC Glucose 74 (70-105) 06/19/18 21:35 Calcium 8.5 mg/dL (8.4-10.2) 06/17/18 05:08 Total Creatine Kinase 330 units/L (55-170) H 06/17/18 09:31 CK-MB (CK-2) 2.5 ng/mL (0.0-4.0) 06/17/18 09:31 CK-MB (CK-2) Rel Index 0.7 (0-4) 06/17/18 09:31 Troponin T < 0.010 ng/mL (0.00-0.029) 06/17/18 09:31 Nutrition/Malnutrition Assess - Dietary Evaluation Nutrition/Malnutrition Findings: Nutrition Notes Start: 06/18/18 09:13 Freq: Status: Active Protocol: Document 06/18/18 12:26 ZORAN (Rec: 06/18/18 14:02 ZORAN [email or web address]) Co-Sign 06/18/18 12:26 LP Nutrition Notes Need for Assessment generated from: side panel hanger Initial or Follow up Assessment Current Diagnosis Coronary Artery Disease Diabetes Hypertension Other Pertinent Diagnosis TIAs, DVT, PE Current Diet Cardiac/consistent CHO diet Labs/Tests Reviewed Pertinent Medications Reviewed Height 5 ft 8 in Weight 103.4 kg Usual Body Weight 118 kg [place] Body Weight (kg) 70.00 BMI 34.6 Intake Prior to Admission Poor Weight change and time frame wt. loss of 12.6% BW in less than one month Weight Status Obese Subjective/Other Information Pt screened for MST. Pt. stated he has not had an appetite for the past several weeks. 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 Pt. reported eating less than 25% of meal trays. Pt reported experiencing constipation that has lasted for about a month, as well as nausea. Pt. stated constipation has not improved with fiber/fluid intake or laxatives. Pt. denied vomitting and diarrhea. Pt. reported experiencing swallowing difficulties with fluids. Per pt. doctor, she will touch base with pt. and determine if FAMILY CONSULTANT consult is warrented. Pt. doctor aware of constipation. Hr Assistant did not observe signs of muscle/fat wasting. Percent of energy/protein needs met: <25%/25% Burn Absent Trauma Absent GI Symptoms Constipation Food Allergy No Current % PO Poor (25-49%) Minimum of two criteria Yes Energy Intake (non-severe) <75% Estimated Energy Requirement >7 days Interpretation of Weight Loss (severe) >5% in 1 month #1 Nutrition Diagnosis Malnutrition Etiology Constipation, nausea As Evidenced by Signs and Symptoms intakes of less than 75% of needs in 7 days, wt. loss of 12.6% BW in one month Is patient on ventilator? No Is Patient Ambulatory and/or Out of Bed Yes REE-([facility]-ambulatory/OOB) [ 2520.050 NUTR.[id number]] Kcal/Kg value to use for calculation 20 Approximate Energy Requirements Using 8 kcal/Kg Calculation Used for Recommendations Kcal/kg Additional Notes AdjBW: 86.5 kg Pro needs: 104-130g/day (1.2-1 .5 g/kg AdjBW) Fluid needs: 1 ml/kcal Nutrition Intervention Change Diet Order: Continue cardiac/consistent CHO diet Goal #1 PO and ONS intakes to meet at least 75% of energy and protein needs Anticipated Discharge Needs: Cardiac/consistent CHO diet Follow-Up By: 06/20/18 Additional Comments F/u for PO intakes, POC
[2018-06-20 05:52] VITALS: BP 121/70
[2018-06-20 07:45] LABS: Eosinophils # (Auto) 0.1 K/mm3 (0.0-0.4); Eosinophils % (Auto) 2.6 % (0.0-4.3); Hematocrit 32.8 % (35.5-45.6); Hemoglobin 10.7 gm/dl (11.8-15.2); Lymphocytes # (Auto) 0.8 K/mm3 (1.2-5.4); Lymphocytes % (Auto) 23.4 % (13.4-35.0); Mean Corpuscular HGB Conc 33 % (32-34); Mean Corpuscular Volume 76 fl (84-94); Monocytes # (Auto) 0.5 K/mm3 (0.0-0.8); Platelet Count 191 K/mm3 (140-440); Red Blood Count 4.31 M/mm3 (3.65-5.03); Red Cell Distribution Width 18.6 % (13.2-15.2)
[2018-06-20 07:59] LABS: BUN/Creatinine Ratio 8; Blood Urea Nitrogen 9 mg/dL (9-20); Calcium 9.1 mg/dL (8.4-10.2); Hemolysis Index 3
--- NOTE | 2018-06-20 11:40 | Event Note ---
Date: 06/20/18 colonoscopy cancelled for today. Patient left AMA.
[2018-06-20] MEDS ORDERED: LOVENOX SUB-Q SCH (22:00)
== END 2018-06-20 09:05 | disposition left against medical advice (07) | DRG 378 ==
LOC: ED 22:22 → 4A 06-17 05:59 → 3A 06-19 18:54
PROVIDERS: ADMIT Internal Medicine; ATTEND Internal Medicine
PROC: 0DJ08ZZ Inspection of Upper Intestinal Tract, Via Natural or Artificial Opening Endoscopic (ICD-10-PCS; principal; 2018-06-17)
DX: K29.71 Gastritis, unspecified, with bleeding (principal); I69.351 Hemiplegia and hemiparesis following cerebral infarction affecting right dominant side; I25.110 Atherosclerotic heart disease of native coronary artery with unstable angina pectoris; I10 Essential (primary) hypertension; E11.9 Type 2 diabetes mellitus without complications; E78.5 Hyperlipidemia, unspecified; R07.89 Other chest pain; I48.91 Unspecified atrial fibrillation; K59.09 Other constipation; Z53.21 Procedure and treatment not carried out due to patient leaving prior to being seen by health care provider; J45.909 Unspecified asthma, uncomplicated; F12.90 Cannabis use, unspecified, uncomplicated; F17.200 Nicotine dependence, unspecified, uncomplicated; Z82.49 Family history of ischemic heart disease and other diseases of the circulatory system; Z88.8 Allergy status to other drugs, medicaments and biological substances; Z79.899 Other long term (current) drug therapy; Z87.11 Personal history of peptic ulcer disease; Z86.718 Personal history of other venous thrombosis and embolism; Z86.711 Personal history of pulmonary embolism; I25.2 Old myocardial infarction; Z95.5 Presence of coronary angioplasty implant and graft; Z79.84 Long term (current) use of oral hypoglycemic drugs
CPT/HCPCS: 36415; 70450; 71045; 74018; 80048; 82550; 82553; 82962; 84484; 85025; 85027; 85610; 85730; 90686; 90732; 93005; 93010; G0378; C9113; J2250; J2270; J2704; J3010; J7030

== ENCOUNTER 2018-06-21 19:03 | Emergency (ER) | payer MEDICAID ==
[2018-06-21 19:25] VITALS: BP 103/77
== END 2018-06-21 19:08 | disposition left against medical advice (07) ==
LOC: ED 19:03
DX: R10.9 Unspecified abdominal pain (principal); Z53.21 Procedure and treatment not carried out due to patient leaving prior to being seen by health care provider

== ENCOUNTER 2018-06-22 06:56 | Emergency (ER) | payer MEDICAID ==
[2018-06-22 07:14] VITALS: BP 127/76
--- NOTE | 2018-06-22 09:32 | Emergency Department Report ---
ED Abdominal Pain HPI - General Chief Complaint: Abdominal Pain Stated Complaint: CONSTIPATION Time Seen by Provider: 06/22/18 09:23 Source: patient Mode of arrival: Ambulatory Limitations: No Limitations - History of Present Illness Initial Comments: This is a 37-year-old male here report that he has evident abdominal pain and he has constipation and had not had a bowel movement for 30 days. Patient said he was was of a colonoscopy yesterday. He signed because he had to go babysit his brothers child. He reports he is having abdominal pain but denies any urinary burning, frequency or urgency. Denies any chest pain or back pain. He states that his abdomen is crampy. Patient has been here several times in May and was admitted because he had chest pain and constipation. His last stress test and cardiac cath was negative. Cardiac labs are negative. He was seen by cardiology while he was in the hospital. Patient was also seen by GI and was in the process of being prep for colonoscopy and left. He reports pain generalized crampy and 5/10. He said he has taken [id number] constipation medication but it is not helping. Denies taking any narcotics MD Complaint: abdominal pain, other (constipation) Onset/Timin -: days(s) Location: diffuse Radiation: none Migration to: no migration Severity: moderate Severity scale (0 -10): 5 Quality: cramping Consistency: intermittent Improves With: nothing Worsens With: nothing Context: other (constipation 30 days) Associated Symptoms: constipation. denies: nausea, vomiting, diarrhea, fever, chills, dysuria, hematemesis, hematochezia, melena, hematuria, anorexia, syncope Treatments Prior to Arrival: other ([id number] medication for constipation) - Related Data Home Medications Medication Instructions Recorded Confirmed Last Taken Nitroglycerin [Nitrostat] 0.4 mg SL Q5M PRN 08/24/17 06/17/18 Unknown Previous Rx's Medication Instructions Recorded Last Taken Type Carvedilol [Coreg] 12.5 mg PO BID #60 tablet 08/25/17 Unknown Rx Docusate Sodium [Colace CAP] 100 mg PO BID #30 capsule 05/13/18 Unknown Rx Bisacodyl [Dulcolax] 10 mg PO DAILY PRN #14 tab 06/18/18 Unknown Rx Nicotine [Habitrol] 21 mg TD DAILY #30 patch 06/18/18 Unknown Rx Pantoprazole [Protonix TAB] 40 mg PO BID #60 tablet 06/18/18 Unknown Rx Bisacodyl [Dulcolax] 10 mg PO DAILY 1 Days #2 tab 06/22/18 Unknown Rx Docusate Sodium [Colace] 100 mg PO BID 30 Days #60 capsule 06/22/18 Unknown Rx Magnesium Citrate [Citrate of 300 ml PO ONCE 1 Days #1 bottle 06/22/18 Unknown Rx Magnesia] Sodium Phosphate,[place]-Dibasic 118 ml RC ONCE 1 Days #1 enema 06/22/18 Unknown Rx [Fleet Enema] Allergies Allergy/AdvReac Type Severity Reaction Status Date / Time aspirin Allergy Hives Verified 11/11/17 02:38 ED Review of Systems ROS: Stated complaint: CONSTIPATION Other details as noted in HPI Constitutional: denies: chills, fever ENT: denies: congestion Respiratory: denies: cough, shortness of breath, SOB with exertion, SOB at rest, wheezing Cardiovascular: denies: chest pain, palpitations, edema, syncope Gastrointestinal: abdominal pain, constipation. denies: nausea, vomiting, diarrhea, hematemesis, melena, hematochezia Genitourinary: denies: urgency, dysuria, frequency, hematuria, discharge Skin: denies: rash Neurological: denies: headache, numbness, paresthesias, abnormal gait, vertigo ED Past Medical Hx - Past Medical History Previous Medical History?: Yes Hx Hypertension: Yes Hx CVA: Yes (TIAs, residiu. right side weakness) Hx Heart Attack/AMI: Yes (2 stents placed 2017) Hx Congestive Heart Failure: Yes Hx Diabetes: Yes Hx Deep Vein Thrombosis: Yes (R-leg) Hx Pulmonary Embolism: Yes Hx Asthma: Yes Additional medical history: Ulcers, a-fib. strong family hx of cardiac disorders - Surgical History Past Surgical History?: Yes Hx Coronary Stent: Yes (x2 2017) Additional Surgical History: Stent placement - Family History Family history: hypertension - Social History Smoking Status: Current Every Day Smoker Substance Use Type: Marijuana - Medications Home Medications: Home Medications Medication Instructions Recorded Confirmed Last Taken Type Nitroglycerin [Nitrostat] 0.4 mg SL Q5M PRN 08/24/17 06/17/18 Unknown History Carvedilol [Coreg] 12.5 mg PO BID #60 tablet 08/25/17 06/17/18 Unknown Rx Docusate Sodium [Colace CAP] 100 mg PO BID #30 capsule 05/13/18 06/17/18 Unknown Rx Bisacodyl [Dulcolax] 10 mg PO DAILY PRN #14 tab 06/18/18 Unknown Rx Nicotine [Habitrol] 21 mg TD DAILY #30 patch 06/18/18 Unknown Rx Pantoprazole [Protonix TAB] 40 mg PO BID #60 tablet 06/18/18 Unknown Rx Bisacodyl [Dulcolax] 10 mg PO DAILY 1 Days #2 tab 06/22/18 Unknown Rx Docusate Sodium [Colace] 100 mg PO BID 30 Days #60 capsule 06/22/18 Unknown Rx Magnesium Citrate [Citrate of 300 ml PO ONCE 1 Days #1 bottle 06/22/18 Unknown Rx Magnesia] Sodium Phosphate,[place]-Dibasic 118 ml RC ONCE 1 Days #1 enema 06/22/18 Unknown Rx [Fleet Enema] ED Physical Exam - General Limitations: No Limitations General appearance: alert, in no apparent distress - Head Head exam: Present: atraumatic, normocephalic, normal inspection - Eye Eye exam: Present: normal appearance, PERRL, EOMI Pupils: Present: normal accommodation - ENT ENT exam: Present: normal exam, normal orophraynx, mucous membranes moist - Neck Neck exam: Present: normal inspection, full ROM. Absent: tenderness - Respiratory Respiratory exam: Present: normal lung sounds bilaterally. Absent: respiratory distress, wheezes, rales, rhonchi, stridor, chest wall tenderness, accessory muscle use, decreased breath sounds, prolonged expiratory - Cardiovascular Cardiovascular Exam: Present: regular rate, normal rhythm, normal heart sounds - GI/Abdominal GI/Abdominal exam: Present: soft, normal bowel sounds. Absent: distended, tende rness, guarding, rebound, rigid, organomegaly, mass - Extremities Exam Extremities exam: Present: normal inspection, full ROM, normal capillary refill, other (No cce. + 2 pulses in all extremities, no neurovascular compromise). Absent: tenderness, pedal edema, joint swelling - Back Exam Back exam: Present: normal inspection, full ROM, other (ambulates without any difficulties). Absent: tenderness, CVA tenderness (R), CVA tenderness (L), muscle spasm, paraspinal tenderness, vertebral tenderness, rash noted - Neurological Exam Neurological exam: Present: alert, oriented X3, normal gait, reflexes normal. Absent: motor sensory deficit - Psychiatric Psychiatric exam: Present: normal affect, normal mood - Skin Skin exam: Present: warm, dry, intact, normal color. Absent: rash ED Course Vital Signs 06/22/18 07:13 Temperature 97.9 F Pulse Rate 83 Respiratory 16 Rate Blood Pressure 127/76 O2 Sat by Pulse 98 Oximetry - Reevaluation(s) Reevaluation #1: 06/22/18 10:32 Patient had CBC, BMP, hepatic panel, lipase and urinalysis which were all stable. His H&H when comparing to previous H&H in May/2018 is better. Reevaluation #2: 06/22/18 11:42 She is stable and in no acute distress. I discussed results of x-ray and he voiced understanding. ED Medical Decision Making - Lab Data Result diagrams: 06/22/18 09:42 06/22/18 09:42 Lab Results 06/22/18 06/22/18 06/22/18 Range/Units 09:42 09:42 10:10 WBC 2.6 L (4.5-11.0) K/mm3 RBC 4.37 (3.65-5.03) M/mm3 Hgb 10.8 L (11.8-15.2) gm/dl Hct 34.0 L (35.5-45.6) % MCV 78 L (84-94) fl MCH 25 L (28-32) pg MCHC 32 (32-34) % RDW 18.2 H (13.2-15.2) % Plt Count 195 (140-440) K/mm3 [place] % (Auto) Hand Cloth Cutter Sodium 140 (137-145) mmol/L Potassium 4.1 (3.6-5.0) mmol/L Chloride 102.4 (98-107) mmol/L Carbon Dioxide 24 (22-30) mmol/L Anion Gap 18 mmol/L BUN 15 (9-20) mg/dL Creatinine 1.2 (0.8-1.5) mg/dL Estimated GFR > 60 ml/min BUN/Creatinine Ratio 13 % Glucose 100 (75-100) mg/dL Calcium 9.6 (8.4-10.2) mg/dL Lipase 23 (13-60) units/L Urine Color Yellow (Yellow) Urine Turbidity Clear (Clear) Urine pH 5.0 (5.0-7.0) Ur Specific [place] 1.031 H (1.003-1.030) Urine Protein 30 mg/dl (Negative) mg/dL Urine Glucose (UA) Neg (Negative) mg/dL Urine Ketones Neg (Negative) mg/dL Urine Blood Neg (Negative) Urine Nitrite Neg (Negative) Urine Bilirubin Neg (Negative) Urine Urobilinogen 2.0 (<2.0) mg/dL Ur Leukocyte Esterase Neg (Negative) Urine WBC (Auto) 2.0 (0.0-6.0) /HPF Urine RBC (Auto) 4.0 (0.0-6.0) /HPF Urine Mucus 2+ /HPF - Radiology Data Radiology results: report reviewed X-ray of abdomen shows nonspecific, nonobstructive abdomen. There is air in stool and nondilated colon. There is no free air. No air fluid levels are seen. There are no suspicion calcification. This x-ray was dictated by radiologist and report reviewed by myself and I cannot populate report to this area due to malfunction of radiology system nonspecific obstructive abdomen but is constipated - Medical Decision Making This is a 37-year-old male here with history of chronic constipation and says that he has not had a bowel movement in 2 days. Patient was here in May and was admitted for chest pain because he has a history of cardiac disease with stent placement. She has no chest pain today. 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 Patient had an EGD which showed that he had mild gastritis and was told to stay away from aspirin and Motrin products. He had constipation showed on abdominal x-ray in May. Patient's CBC with mild anemia which is better than it was in May 2018. White count is 2.6 and it was 3+ and May. Chemistry stable and urinalysis. Lipase within normal limits. I discussed the patient his x-ray results and laboratory results and he voiced understanding. I discussed with him that he needs to follow up with his primary care doctor. I also discharged him due to chronic constipation he needs to follow-up with gastroenterology and also hematology for anemia and low white blood count and he voiced understanding. Patient is stable and in no acute distress. Discharge home with prescription for laxative to include magnesium citrate, Dulcolax tablets and enema to take today 1 and Colace to take twice daily to prevent constipation. He voiced understanding - Differential Diagnosis bowel obstruction, UTI, constipation Critical care attestation.: If time is entered above; I have spent that time in minutes in the direct care of this critically ill patient, excluding procedure time. ED Disposition Clinical Impression: Abdominal cramping Constipation Qualifiers: Constipation type: other constipation type Qualified Code(s): K59.09 - Other constipation Leukopenia Qualifiers: Leukopenia type: unspecified Qualified Code(s): D72.819 - Decreased white blood cell count, unspecified Anemia Qualifiers: Anemia type: unspecified type Qualified Code(s): D64.9 - Anemia, unspecified Disposition: DC- TO HOME OR SELFCARE Is pt being admited?: No Does the pt Need Aspirin: No Condition: Stable Instructions: High Fiber Diet (ED), Constipation (ED), Anemia (ED), Iron Rich Diet (ED) Additional Instructions: Please follow-up with your primary care physician in 2 days. And a few condition worsens, return to the emergency room YULIYA. The x-ray showing the have constipation and he will need to follow discharge instruction paperwork on high fiber diet and also increase her fluid intake to at least 2-3 L of water daily. 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 Take stool softener as discussed Take laxative 1 today. 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 You will need to schedule an appointment to have a colonoscopy done and also follow up with hematology regarding anemia and low white blood cell. Referrals: CITLALI RUBI MD [Primary Care Provider] - 06/24/18 [facility] [Outside] - 06/24/18 [facility] [Provider Group] - 06/24/18 DEEPTHI REYES MD [Staff Physician] - 06/24/18 Forms: Work/School Release Form(ED)
[2018-06-22 09:59] LABS: Hemoglobin 10.8 gm/dl (11.8-15.2); Mean Corpuscular HGB Conc 32 % (32-34); Mean Corpuscular Volume 78 fl (84-94); Platelet Count 195 K/mm3 (140-440); Red Blood Count 4.37 M/mm3 (3.65-5.03); Red Cell Distribution Width 18.2 % (13.2-15.2)
[2018-06-22 10:16] LABS: BUN/Creatinine Ratio 13; Blood Urea Nitrogen 15 mg/dL (9-20); Calcium 9.6 mg/dL (8.4-10.2); Hemolysis Index 3
[2018-06-22 10:26] LABS: Bilirubin,Urine NEG (Negative); Blood,Urine NEG (Negative); Color,Urine Yellow (Yellow); Mucus,Urine 2+ /HPF
[2018-06-22 11:25] LABS: Basophils % (Manual) 0 % (0.0-1.8); Total Cells Counted 100
[2018-06-22 11:26] LABS: Anisocytosis 1+; Hypochromasia 1+
--- NOTE | 2018-06-22 14:01 | XRay Report ---
PROCEDURE: XR ABDOMEN 2V TECHNIQUE: Supine and upright abdomen HISTORY: constipation COMPARISON: None FINDINGS: The bowel gas pattern is nonspecific and nonobstructive. There is air and stool in nondilated colon. There is no free air. No air-fluid levels are seen. There are no suspicious calcifications. I cannot confirm significant fecal stasis. IMPRESSION: Nonspecific, nonobstructive abdomen. This document is electronically signed by Marj Ahmadi MD., June 22 2018 11:21:08 AM ET
== END 2018-06-22 12:10 | disposition home or self-care (01) ==
LOC: ED 06:56
DX: K59.09 Other constipation (principal); D72.819 Decreased white blood cell count, unspecified; D64.9 Anemia, unspecified; I11.0 Hypertensive heart disease with heart failure; I50.9 Heart failure, unspecified; I25.2 Old myocardial infarction; E11.9 Type 2 diabetes mellitus without complications; J45.909 Unspecified asthma, uncomplicated; F17.200 Nicotine dependence, unspecified, uncomplicated; F12.90 Cannabis use, unspecified, uncomplicated; Z86.73 Personal history of transient ischemic attack (TIA), and cerebral infarction without residual deficits; Z86.718 Personal history of other venous thrombosis and embolism; Z95.1 Presence of aortocoronary bypass graft; Z88.6 Allergy status to analgesic agent
CPT/HCPCS: 36415; 74019; 80048; 81001; 83690; 85007; 85025; 99283

== ENCOUNTER 2018-07-20 02:01 | Emergency (ER) | payer MEDICAID ==
[2018-07-20] MEDS ORDERED: ASPIRIN PO ONE (03:32)
--- NOTE | 2018-07-20 04:02 | XRay Report ---
PROCEDURE: XR CHEST 1V AP TECHNIQUE: AP portable chest radiograph HISTORY: Chest Pain COMPARISONS: 01/17/2018 FINDINGS: No mediastinal shift. Cardiac silhouette is not enlarged. No pneumothorax, effusion, or focal pulmona ry opacity identified. No acute skeletal findings. IMPRESSION: No acute pulmonary finding identified. This document is electronically signed by Ren Coles MD., July 20 2018 04:01:17 AM ET
[2018-07-20 04:30] LABS: Basophils % (Auto) 1.1 % (0.0-1.8); Eosinophils # (Auto) 0.1 K/mm3 (0.0-0.4); Hematocrit 31.6 % (35.5-45.6); Hemoglobin 10.2 gm/dl (11.8-15.2); Lymphocytes % (Auto) 30.6 % (13.4-35.0); Mean Corpuscular HGB Conc 32 % (32-34); Mean Corpuscular Volume 77 fl (84-94); Monocytes # (Auto) 0.4 K/mm3 (0.0-0.8); Monocytes % (Auto) 12.5 % (0.0-7.3); Platelet Count 214 K/mm3 (140-440); Red Blood Count 4.12 M/mm3 (3.65-5.03); Red Cell Distribution Width 18.1 % (13.2-15.2)
[2018-07-20 04:35] LABS: Mean Corpuscular Hemoglobin 25 pg (28-32)
[2018-07-20 04:49] LABS: BUN/Creatinine Ratio 9; Blood Urea Nitrogen 12 mg/dL (9-20); Hemolysis Index 8
[2018-07-20 08:11] VITALS: BP 122/62
== END 2018-07-20 10:55 | disposition left against medical advice (07) ==
LOC: ED 02:01
DX: R07.9 Chest pain, unspecified (principal); Z53.21 Procedure and treatment not carried out due to patient leaving prior to being seen by health care provider
CPT/HCPCS: 36415; 71045; 80048; 84484; 85025; 93005; 93010

== ENCOUNTER 2018-08-17 02:57 | Emergency (ER) | payer MEDICAID ==
--- NOTE | 2018-08-17 05:13 | XRay Report ---
PROCEDURE: BILATERAL RIBS TECHNIQUE: Bilateral rib radiographs, 3 views. HISTORY: rib pain s/p fall COMPARISONS: None . FINDINGS: Lungs: Normal . Pleural space: Normal . Pneumothorax: None . Bony thorax/ribs: No significant abnormality . IMPRESSION: Normal examination of the bilateral ribs . This document is electronically signed by Janett Madden DO., August 17 2018 05:10:39 AM ET
--- NOTE | 2018-08-17 06:32 | Emergency Department Report ---
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 denies: headache, neck pain, numbness (old is normal he is also not), weakness, shortness of breath, abdominal pain (the R), hematuria, vertigo (room in more.Residual [id number] I will) - Related Data Home Medications Medication Instructions Recorded Confirmed Last Taken Nitroglycerin [Nitrostat] 0.4 mg SL Q5M PRN 08/24/17 06/17/18 Unknown Previous Rx's Medication Instructions Recorded Last Taken Type Carvedilol [Coreg] 12.5 mg PO BID #60 tablet 08/25/17 Unknown Rx Docusate Sodium [Colace CAP] 100 mg PO BID #30 capsule 05/13/18 Unknown Rx Bisacodyl [Dulcolax] 10 mg PO DAILY PRN #14 tab 06/18/18 Unknown Rx Nicotine [Habitrol] 21 mg TD DAILY #30 patch 06/18/18 Unknown Rx Pantoprazole [Protonix TAB] 40 mg PO BID #60 tablet 06/18/18 Unknown Rx Bisacodyl [Dulcolax] 10 mg PO DAILY 1 Days #2 tab 06/22/18 Unknown Rx Docusate Sodium [Colace] 100 mg PO BID 30 Days #60 capsule 06/22/18 Unknown Rx Magnesium Citrate [Citrate of 300 ml PO ONCE 1 Days #1 bottle 06/22/18 Unknown Rx Magnesia] Sodium Phosphate,[place]-Dibasic 118 ml RC ONCE 1 Days #1 enema 06/22/18 Unknown Rx [Fleet Enema] Cyclobenzaprine [Flexeril] 10 mg PO TID PRN #30 tablet 08/17/18 Unknown Rx Menthol/Camphor [[place] 1 applicatio TP QID PRN #1 tube 08/17/18 Unknown Rx Ointment] Naproxen [Naprosyn TAB] 500 mg PO BID #30 tablet 08/17/18 Unknown Rx Allergies Allergy/AdvReac Type Severity Reaction Status Date / Time aspirin Allergy Hives Verified 11/11/17 02:38 ED Review of Systems ROS: Stated complaint: RIB PAIN Other details as noted in HPI Constitutional: denies: chills, fever Eyes: denies: eye pain, eye discharge, vision change ENT: denies: ear pain, throat pain Respiratory: denies: cough, shortness of breath, wheezing Cardiovascular: denies: chest pain, palpitations Endocrine: no symptoms reported Gastrointestinal: denies: abdominal pain, nausea, diarrhea Genitourinary: dysuria. denies: urgency Musculoskeletal: back pain (right flank pian ). denies: joint swelling, arthralgia Skin: denies: rash, lesions Neurological: headache, vertigo. denies: weakness, numbness, paresthesias, confusion, abnormal gait Psychiatric: as per HPI Hematological/Lymphatic: denies: easy bleeding, easy bruising ED Past Medical Hx - Past Medical History Previous Medical History?: Yes Hx Hypertension: Yes Hx CVA: Yes (TIAs, residiu. right side weakness) Hx Heart Attack/AMI: Yes (2 stents placed 2016) Hx Congestive Heart Failure: Yes Hx Diabetes: Yes Hx Deep Vein Thrombosis: Yes (R-leg) Hx Pulmonary Embolism: Yes Hx Asthma: Yes Additional medical history: Ulcers, a-fib. strong family hx of cardiac disorders - Surgical History Past Surgical History?: Yes Hx Coronary Stent: Yes (x2 2017) Additional Surgical History: Stent placement - Social History Smoking Status: Current Every Day Smoker Substance Use Type: None - Medications Home Medications: Home Medications Medication Instructions Recorded Confirmed Last Taken Type Nitroglycerin [Nitrostat] 0.4 mg SL Q5M PRN 08/24/17 06/17/18 Unknown History Carvedilol [Coreg] 12.5 mg PO BID #60 tablet 08/25/17 06/17/18 Unknown Rx Docusate Sodium [Colace CAP] 100 mg PO BID #30 capsule 05/13/18 06/17/18 Unknown Rx Bisacodyl [Dulcolax] 10 mg PO DAILY PRN #14 tab 06/18/18 Unknown Rx Nicotine [Habitrol] 21 mg TD DAILY #30 patch 06/18/18 Unknown Rx Pantoprazole [Protonix TAB] 40 mg PO BID #60 tablet 06/18/18 Unknown Rx Bisacodyl [Dulcolax] 10 mg PO DAILY 1 Days #2 tab 06/22/18 Unknown Rx Docusate Sodium [Colace] 100 mg PO BID 30 Days #60 capsule 06/22/18 Unknown Rx Magnesium Citrate [Citrate of 300 ml PO ONCE 1 Days #1 bottle 06/22/18 Unknown Rx Magnesia] Sodium Phosphate,[place]-Dibasic 118 ml RC ONCE 1 Days #1 enema 06/22/18 Unknown Rx [Fleet Enema] Cyclobenzaprine [Flexeril] 10 mg PO TID PRN #30 tablet 08/17/18 Unknown Rx Menthol/Camphor [[place] 1 applicatio TP QID PRN #1 tube 08/17/18 Unknown Rx Ointment] Naproxen [Naprosyn TAB] 500 mg PO BID #30 tablet 08/17/18 Unknown Rx ED Physical Exam - General Limitations: No Limitations (home which also) General appearance: alert, in no apparent distress - Head Head exam: Present: normocephalic, normal inspection. Absent: atraumatic - Expanded Head Exam Expanded Head exam: Absent: laceration (allergies), abrasion, contusion, hematoma, racoon eyes, george's sign, general tenderness, tenderness of temporal artery, CSF rhinorrhea, CSF otorrhea - Eye Eye exam: Present: normal appearance, PERRL, EOMI Pupils: Present: normal accommodation - ENT ENT exam: Present: normal exam, normal orophraynx, mucous membranes moist, TM's normal bilaterally, normal external ear exam - Neck Neck exam: Present: normal inspection, tenderness (right postier low ), full ROM. Absent: meningismus, lymphadenopathy (now recently he), thyromegaly - Respiratory Respiratory exam: Present: normal lung sounds bilaterally, chest wall tenderness (right lateral chest tenderness no crepitus no s). Absent: respiratory distress, wheezes, rales, rhonchi, stridor, accessory muscle use, prolonged expiratory - Cardiovascular Cardiovascular Exam: Present: regular rate, normal rhythm, normal heart sounds. Absent: systolic murmur, diastolic murmur, rubs, gallop - GI/Abdominal GI/Abdominal exam: Present: normal bowel sounds. Absent: distended, tenderness, guarding, rebound, bruit, hernia - Rectal Rectal exam: Present: deferred - Extremities Exam Extremities exam: Present: normal inspection, full ROM, normal capillary refill. Absent: tenderness, pedal edema, joint swelling, calf tenderness - Back Exam Back exam: Present: normal inspection, full ROM, tenderness (right flank and rib), muscle spasm. Absent: CVA tenderness (R), CVA tenderness (L), paraspinal tenderness, vertebral tenderness (4), rash noted ( on is) - Neurological Exam Neurological exam: Present: alert, oriented X3, CN II-XII intact, normal gait, reflexes normal. Absent: motor sensory deficit - Expanded Neurological Exam Expanded Neurological exam: Absent: innattentive (the valve and artery) Patient oriented to: Present: person, place, time Speech: Present: fluid speech Cranial nerves: EOM's Intact: Normal, Gag Reflex: Normal, Tongue Deviation: Normal, Nystagmus: Normal, Facial Sensation: Normal, Facial Palsy with Forehead Movement: Normal, Facial Palsy without Forehead Movement: Normal Cerebellar function: Finger to Nose: Normal, Heel to Clark: Normal, Romberg: Normal Upper motor neuron: Rahat Neglect: Normal, Pronator Drift: Normal, Babinski Sign: Normal, Sensory Extinction: Normal Motor strength exam: RUE: 5, LUE: 5, RLE: 5, LLE: 5 DTR: bicep (R): 2+, bicep (L): 2+, knee (R): 2+, knee (L): 2+, ankle (R): 2+, ankle (L): 2+ Best Eye Response (Gilda): (4) open spontaneously Best Motor Response (Gilda): (6) obeys commands Best Verbal Response (Gilda): (5) oriented [place]iteside Total: 15 - Psychiatric Psychiatric exam: Present: normal affect, normal mood, anxious. Absent: homicidal ideation, suicidal ideation - Skin Skin exam: Present: warm, dry, intact, normal color. Absent: rash ED Course Vital Signs 08/17/18 03:04 Temperature 98.2 F Pulse Rate 97 H Blood Pressure 142/86 ED Medical Decision Making - Radiology Data Radiology results: report reviewed, image reviewed XRay Report Signed Patient: DYAN SHEFFIELD JR MR#: [id number] : 1980 Acct:[id number] Age/Sex: 37 / M ADM Date: 08/17/18 Loc: ED Attending Dr: Ordering Physician: MARY MANCIA NP Date of Service: 08/17/18 Procedure(s): XR ribs BILAT w/PA chest 4+V Accession Number(s): [id number] cc: MARY MANCIA NP Fluoro Time In Minutes: PROCEDURE: BILATERAL RIBS TECHNIQUE: Bilateral rib radiographs, 3 views. HISTORY: rib pain s/p fall COMPARISONS: None . FINDINGS: Lungs: Normal . Pleural space: Normal . Pneumothorax: None . Bony thorax/ribs: No significant abnormality . IMPRESSION: Normal examination of the bilateral ribs . This document is electronically signed by Janett Madden DO., August 17 2018 05:10:39 AM ET Transcribed By: [facility] Dictated By: JANETT MADDEN MD Electronically Authenticated By: JANETT MADDEN MD Signed Date/Time: 08/17/18 0513 DD/ 3 TD/TT: 08/17/18 050 - Medical Decision Making cxr / ribs neg for fracture , no opacities , no infiltrates. this costrochondritis with Low blow back strain , s/p glf yesterday, no crepitus no ecchymosis no deformity sob no wheezing no cough no hemoptysis, plan dc home with rx for nsaids, muscle relaxant , analgesic balm pt will follow up with pcp in 2 days given referral to [facility] , pain is improved, Critical care attestation.: If time is entered above; I have spent that time in minutes in the direct care of this critically ill patient, excluding procedure time. ED Disposition Clinical Impression: Flank pain, Costochondritis Fall Qualifiers: Encounter type: initial encounter Qualified Code(s): W19.XXXA - Unspecified fall, initial encounter Disposition: DC-01 TO HOME OR SELFCARE Is pt being admited?: No Does the pt Need Aspirin: No (morning no tobacco) Condition: Stable Instructions: Fall Prevention (ED), Costochondritis (ED), Low Back Strain (ED), Core Strengthening Exercises (GEN) Prescriptions: Cyclobenzaprine [Flexeril] 10 mg PO TID PRN #30 tablet PRN Reason: Muscle Spasm Naproxen [Naprosyn TAB] 500 mg PO BID #30 tablet Menthol/Camphor [[place] Ointment] 1 applicatio TP QID PRN #1 tube PRN Reason: pain 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
[2018-08-17 07:23] VITALS: BP 140/82
== END 2018-08-17 07:22 | disposition home or self-care (01) ==
LOC: ED 02:57
DX: M94.0 Chondrocostal junction syndrome [Tietze] (principal); R10.9 Unspecified abdominal pain; Z88.6 Allergy status to analgesic agent; W01.0XXA Fall on same level from slipping, tripping and stumbling without subsequent striking against object, initial encounter; Y93.89 Activity, other specified; Y92.009 Unspecified place in unspecified non-institutional (private) residence as the place of occurrence of the external cause; Y99.8 Other external cause status
CPT/HCPCS: 71111

== ENCOUNTER 2018-08-31 09:04 | Emergency (ER) | payer MEDICAID ==
--- NOTE | 2018-08-31 11:06 | XRay Report ---
PROCEDURE: XR CHEST 1V AP TECHNIQUE: Chest, one view HISTORY: Chest Pain COMPARISON: 08/17/2018 FINDINGS: The heart size is normal. There is no pulmonary vascular congestion seen. Mediastinal contours are normal. Lungs are clear. There is no pleural effusion seen. There is no pneumothorax seen. IMPRESSION: No acute abnormality identified. This document is electronically signed by Marj Ahmadi MD., Aug 31 2018 11:04:43 AM ET
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
[2018-08-31 12:09] VITALS: BP 104/65
== END 2018-08-31 12:12 | disposition home or self-care (01) ==
LOC: ED 09:04
DX: S20.212A Contusion of left front wall of thorax, initial encounter (principal); Z76.5 Malingerer [conscious simulation]; I11.0 Hypertensive heart disease with heart failure; I50.9 Heart failure, unspecified; E11.9 Type 2 diabetes mellitus without complications; J45.909 Unspecified asthma, uncomplicated; I48.91 Unspecified atrial fibrillation; F17.200 Nicotine dependence, unspecified, uncomplicated; Z88.6 Allergy status to analgesic agent; Z86.73 Personal history of transient ischemic attack (TIA), and cerebral infarction without residual deficits; Z86.718 Personal history of other venous thrombosis and embolism; Z86.711 Personal history of pulmonary embolism; Z95.1 Presence of aortocoronary bypass graft; V09.9XXA Pedestrian injured in unspecified transport accident, initial encounter; Y93.89 Activity, other specified; Y92.488 Other paved roadways as the place of occurrence of the external cause; Y99.8 Other external cause status
CPT/HCPCS: 71045; 93005; 93010; 99284

== ENCOUNTER 2018-09-16 23:58 | Emergency (ER) | payer MEDICAID ==
--- NOTE | 2018-09-17 00:37 | XRay Report ---
PROCEDURE: XR CHEST 1V AP TECHNIQUE: Chest radiograph single view. HISTORY: Chest Pain COMPARISONS: Prior chest x-ray 08/31/2017 . FINDINGS: Heart: Normal size. Mediastinum/Vessels: Normal. Lungs/Pleural space: Clear.. Bony thorax: No acute osseous abnormality. Life support devices: None. IMPRESSION: No acute cardiopulmonary abnormality. This document is electronically signed by Nando Rader MD., Sep 17 2018 12:35:20 AM ET
[2018-09-17 00:41] LABS: Basophils # (Auto) 0.1 K/mm3 (0.0-0.1); Basophils % (Auto) 1.7 % (0.0-1.8); Eosinophils # (Auto) 0.1 K/mm3 (0.0-0.4); Hematocrit 33.3 % (35.5-45.6); Hemoglobin 10.8 gm/dl (11.8-15.2); Lymphocytes # (Auto) 0.9 K/mm3 (1.2-5.4); Lymphocytes % (Auto) 28.1 % (13.4-35.0); Mean Corpuscular HGB Conc 33 % (32-34); Mean Corpuscular Volume 75 fl (84-94); Monocytes # (Auto) 0.3 K/mm3 (0.0-0.8); Platelet Count 244 K/mm3 (140-440); Red Blood Count 4.46 M/mm3 (3.65-5.03); Red Cell Distribution Width 19.1 % (13.2-15.2)
[2018-09-17] MEDS ORDERED: LEVAQUIN PO ONE (00:43)
[2018-09-17] MEDS ORDERED: DELTASONE PO ONE (00:43)
--- NOTE | 2018-09-17 00:47 | Emergency Department Report ---
ED Shortness of Breath HPI - General Chief Complaint: Chest Pain Stated Complaint: CHEST PAIN Time Seen by Provider: 09/17/18 00:35 Source: patient Mode of arrival: Ambulatory Limitations: No Limitations - History of Present Illness Initial Comments: Chief complaint "I have pneumonia." HPI: Mr. Haque is a 37-year-old male with history of hypertension, DVT, pulmonary embolism, diabetes, CVA, migraine, coronary artery disease, anemia, GI bleed, hypertension, atrial fibrillation who presents with shortness of breath cough vomiting sweats and mild chest pain. He was evaluated at outside hospital. He was concerned for pneumonia. History of asthma and bronchitis. History of tobacco abuse. MD Complaint: shortness of breath, cough, chest pain -: Gradual, days(s) (several) Severity: mild Quality: aching Consistency: constant Worsens With: coughing Known History Of: asthma Associated Symptoms: fever, cough, sputum production, nausea/vomiting - Related Data Home Medications Medication Instructions Recorded Confirmed Last Taken Nitroglycerin [Nitrostat] 0.4 mg SL Q5M PRN 08/24/17 06/17/18 Unknown Previous Rx's Medication Instructions Recorded Last Taken Type Carvedilol [Coreg] 12.5 mg PO BID #60 tablet 08/25/17 Unknown Rx Docusate Sodium [Colace CAP] 100 mg PO BID #30 capsule 05/13/18 Unknown Rx Bisacodyl [Dulcolax] 10 mg PO DAILY PRN #14 tab 06/18/18 Unknown Rx Nicotine [Habitrol] 21 mg TD DAILY #30 patch 06/18/18 Unknown Rx Pantoprazole [Protonix TAB] 40 mg PO BID #60 tablet 06/18/18 Unknown Rx Bisacodyl [Dulcolax] 10 mg PO DAILY 1 Days #2 tab 06/22/18 Unknown Rx Docusate Sodium [Colace] 100 mg PO BID 30 Days #60 capsule 06/22/18 Unknown Rx Magnesium Citrate [Citrate of 300 ml PO ONCE 1 Days #1 bottle 06/22/18 Unknown Rx Magnesia] Sodium Phosphate,[place]-Dibasic 118 ml RC ONCE 1 Days #1 enema 06/22/18 Unknown Rx [Fleet Enema] Cyclobenzaprine [Flexeril] 10 mg PO TID PRN #30 tablet 08/17/18 Unknown Rx Menthol/Camphor [[place] 1 applicatio TP QID PRN #1 tube 08/17/18 Unknown Rx Ointment] Naproxen [Naprosyn TAB] 500 mg PO BID #30 tablet 08/17/18 Unknown Rx Acetaminophen [Acetaminophen TAB] 500 mg PO Q6HR #20 tablet 08/31/18 Unknown Rx Ferrous Gluconate [Ferrous 324 mg PO TID #20 tablet 09/06/18 Unknown Rx Gluconate 324 MG] Lansoprazole [Prevacid] 30 mg PO DAILY #30 capsule. 09/06/18 Unknown Rx Prednisone [predniSONE 10 mg 10 mg PO .TAPER #1 tab.ds.pk 09/17/18 Unknown Rx (6-Day Pack, 21 Tabs)] levoFLOXacin [Levaquin TAB] 500 mg PO QDAY #7 tablet 09/17/18 Unknown Rx Allergies Allergy/AdvReac Type Severity Reaction Status Date / Time aspirin Allergy Hives Verified 11/11/17 02:38 ED Review of Systems ROS: Stated complaint: CHEST PAIN Other details as noted in HPI Comment: All other systems reviewed and negative Constitutional: malaise. denies: fever Respiratory: cough, shortness of breath, wheezing Cardiovascular: chest pain ED Past Medical Hx - Past Medical History Previous Medical History?: Yes Hx Hypertension: Yes Hx CVA: Yes (TIAs, residiu. right side weakness) Hx Heart Attack/AMI: Yes (2 stents placed 2016) Hx Congestive Heart Failure: Yes Hx Diabetes: Yes Hx Deep Vein Thrombosis: Yes (R-leg) Hx Pulmonary Embolism: Yes Hx Asthma: Yes Additional medical history: Ulcers, a-fib. strong family hx of cardiac disorders - Surgical History Hx Coronary Stent: Yes (x2 2016) Additional Surgical History: Stent placement - Social History Smoking Status: Never Smoker Substance Use Type: None - Medications Home Medications: Home Medications Medication Instructions Recorded Confirmed Last Taken Type Nitroglycerin [Nitrostat] 0.4 mg SL Q5M PRN 08/24/17 06/17/18 Unknown History Carvedilol [Coreg] 12.5 mg PO BID #60 tablet 08/25/17 06/17/18 Unknown Rx Docusate Sodium [Colace CAP] 100 mg PO BID #30 capsule 05/13/18 06/17/18 Unknown Rx Bisacodyl [Dulcolax] 10 mg PO DAILY PRN #14 tab 06/18/18 Unknown Rx Nicotine [Habitrol] 21 mg TD DAILY #30 patch 06/18/18 Unknown Rx Pantoprazole [Protonix TAB] 40 mg PO BID #60 tablet 06/18/18 Unknown Rx Bisacodyl [Dulcolax] 10 mg PO DAILY 1 Days #2 tab 06/22/18 Unknown Rx Docusate Sodium [Colace] 100 mg PO BID 30 Days #60 capsule 06/22/18 Unknown Rx Magnesium Citrate [Citrate of 300 ml PO ONCE 1 Days #1 bottle 06/22/18 Unknown Rx Magnesia] Sodium Phosphate,[place]-Dibasic 118 ml RC ONCE 1 Days #1 enema 06/22/18 Unknown Rx [Fleet Enema] Cyclobenzaprine [Flexeril] 10 mg PO TID PRN #30 tablet 08/17/18 Unknown Rx Menthol/Camphor [[place] 1 applicatio TP QID PRN #1 tube 08/17/18 Unknown Rx Ointment] Naproxen [Naprosyn TAB] 500 mg PO BID #30 tablet 08/17/18 Unknown Rx Acetaminophen [Acetaminophen TAB] 500 mg PO Q6HR #20 tablet 08/31/18 Unknown Rx Ferrous Gluconate [Ferrous 324 mg PO TID #20 tablet 09/06/18 Unknown Rx Gluconate 324 MG] Lansoprazole [Prevacid] 30 mg PO DAILY #30 capsule.dr 09/06/18 Unknown Rx Prednisone [predniSONE 10 mg 10 mg PO .TAPER #1 tab.ds.pk 09/17/18 Unknown Rx (6-Day Pack, 21 Tabs)] levoFLOXacin [Levaquin TAB] 500 mg PO QDAY #7 tablet 09/17/18 Unknown Rx ED Physical Exam - General Limitations: No Limitations General appearance: alert, in no apparent distress - Head Head exam: Present: atraumatic, normocephalic - Eye Eye exam: Present: normal appearance - ENT ENT exam: Present: mucous membranes moist - Neck Neck exam: Present: normal inspection, full ROM - Respiratory Respiratory exam: Present: normal lung sounds bilaterally. Absent: respiratory distress, wheezes, rales, rhonchi - Cardiovascular Cardiovascular Exam: Present: regular rate, normal rhythm, normal heart sounds. Absent: systolic murmur, diastolic murmur, rubs, gallop - GI/Abdominal GI/Abdominal exam: Present: soft, normal bowel sounds. Absent: distended, tenderness, guarding, rebound - Rectal Rectal exam: Present: deferred - Extremities Exam Extremities exam: Present: normal inspection - Back Exam Back exam: Present: normal inspection - Neurological Exam Neurological exam: Present: alert, oriented X3 - Psychiatric Psychiatric exam: Present: normal mood, flat affect - Skin Skin exam: Present: warm, dry, intact, normal color. Absent: rash ED Course Vital Signs 09/17/18 00:00 Temperature 98.4 F Pulse Rate 108 H Respiratory 18 Rate Blood Pressure 125/91 O2 Sat by Pulse 98 Oximetry ED Medical Decision Making - Lab Data Result diagrams: 09/17/18 00:10 - EKG Data 09/17/18 00:47 EKG obtained 0008 Sinus tachycardia rate 100 bpm normal axis normal intervals nonspecific T-wave pattern no significant ST elevation - Radiology Data Radiology results: report reviewed No acute process on chest radiograph according to radiology interpretation - Medical Decision Making Mr. Haque presents with chest pain, cough, vomiting, sweats. Diagnosis bronchitis. IN May admitted for evaluation of noncardiac chest pain. Diagnosis gastritis. He has had negative left heart catheterization and also several negative stress tests. At this time I do not suspect pulmonary embolism with today's presentation. Prescribed Levaquin and prednisone Troponin negative. According to radiology report chest radiograph no acute process Critical care attestation.: If time is entered above; I have spent that time in minutes in the direct care of this critically ill patient, excluding procedure time. ED Disposition Clinical Impression: Acute bronchitis Disposition: DC-01 TO HOME OR SELFCARE Is pt being admited?: No Does the pt Need Aspirin: No Condition: Stable Instructions: Acute Bronchitis (ED) Prescriptions: levoFLOXacin [Levaquin TAB] 500 mg PO QDAY #7 tablet Prednisone [predniSONE 10 mg (6-Day Pack, 21 Tabs)] 10 mg PO .TAPER #1 tab.ds.pk Referrals: [facility] [Outside] - 3-5 Days
[2018-09-17 00:53] LABS: BUN/Creatinine Ratio 10; Blood Urea Nitrogen 15 mg/dL (9-20); Calcium 9.4 mg/dL (8.4-10.2); Hemolysis Index 9
[2018-09-17 01:36] VITALS: BP 128/68
== END 2018-09-17 02:07 | disposition home or self-care (01) ==
LOC: ED 23:58
DX: J20.9 Acute bronchitis, unspecified (principal); I11.0 Hypertensive heart disease with heart failure; I50.9 Heart failure, unspecified; J45.909 Unspecified asthma, uncomplicated; E11.9 Type 2 diabetes mellitus without complications; G43.909 Migraine, unspecified, not intractable, without status migrainosus; I48.91 Unspecified atrial fibrillation; Z86.718 Personal history of other venous thrombosis and embolism; Z86.711 Personal history of pulmonary embolism; Z86.2 Personal history of diseases of the blood and blood-forming organs and certain disorders involving the immune mechanism; Z88.6 Allergy status to analgesic agent; Z95.1 Presence of aortocoronary bypass graft
CPT/HCPCS: 36415; 71045; 80048; 84484; 85025; 93005; 93010; 99284; J7512

== ENCOUNTER 2018-09-25 01:35 | Emergency (ER) | payer MEDICAID ==
[2018-09-25 02:54] LABS: Hematocrit 34.2 % (35.5-45.6); Hemoglobin 11.3 gm/dl (11.8-15.2); Mean Corpuscular HGB Conc 33 % (32-34); Mean Corpuscular Volume 77 fl (84-94); Platelet Count 246 K/mm3 (140-440); Red Blood Count 4.46 M/mm3 (3.65-5.03)
[2018-09-25 03:05] LABS: Red Cell Distribution Width 21.1 % (13.2-15.2)
[2018-09-25 03:17] LABS: Alanine Aminotransferase 53 units/L (7-56); Albumin 4.2 g/dL (3.9-5); BUN/Creatinine Ratio 8; Blood Urea Nitrogen 10 mg/dL (9-20); Calcium 9.2 mg/dL (8.4-10.2); Hemolysis Index 5
[2018-09-25 03:38] LABS: Hypochromasia 1+; Total Cells Counted 100
[2018-09-25 03:39] LABS: Anisocytosis 1+
[2018-09-25] MEDS ORDERED: ALUM-MAG HYDROX-SIMETH 200-200-20MG/5ML PO ONE (03:59)
[2018-09-25] MEDS ORDERED: TYLENOL PO ONE (03:59)
--- NOTE | 2018-09-25 04:03 | Emergency Department Report ---
ED Abdominal Pain HPI - General Chief Complaint: GI Bleed Stated Complaint: ABD PAIN Source: patient Mode of arrival: Ambulatory Limitations: No Limitations - History of Present Illness Initial Comments: Mr. Haque is 37 yo male who presents with abdominal pain with rectal bleeding. Mild pain. Mild bleeding. No fever. No vomiting. MD Complaint: abdominal pain -: Gradual, days(s) (1) Location: diffuse Severity: mild Quality: aching Consistency: constant Improves With: nothing Worsens With: nothing Associated Symptoms: other (rectal bleeding) - Related Data Home Medications Medication Instructions Recorded Confirmed Last Taken Nitroglycerin [Nitrostat] 0.4 mg SL Q5M PRN 08/24/17 06/17/18 Unknown Previous Rx's Medication Instructions Recorded Last Taken Type Carvedilol [Coreg] 12.5 mg PO BID #60 tablet 08/25/17 Unknown Rx Docusate Sodium [Colace CAP] 100 mg PO BID #30 capsule 05/13/18 Unknown Rx Bisacodyl [Dulcolax] 10 mg PO DAILY PRN #14 tab 06/18/18 Unknown Rx Nicotine [Habitrol] 21 mg TD DAILY #30 patch 06/18/18 Unknown Rx Pantoprazole [Protonix TAB] 40 mg PO BID #60 tablet 06/18/18 Unknown Rx Bisacodyl [Dulcolax] 10 mg PO DAILY 1 Days #2 tab 06/22/18 Unknown Rx Docusate Sodium [Colace] 100 mg PO BID 30 Days #60 capsule 06/22/18 Unknown Rx Magnesium Citrate [Citrate of 300 ml PO ONCE 1 Days #1 bottle 06/22/18 Unknown Rx Magnesia] Sodium Phosphate,[place]-Dibasic 118 ml RC ONCE 1 Days #1 enema 06/22/18 Unknown Rx [Fleet Enema] Cyclobenzaprine [Flexeril] 10 mg PO TID PRN #30 tablet 08/17/18 Unknown Rx Menthol/Camphor [[place] 1 applicatio TP QID PRN #1 tube 08/17/18 Unknown Rx Ointment] Naproxen [Naprosyn TAB] 500 mg PO BID #30 tablet 08/17/18 Unknown Rx Acetaminophen [Acetaminophen TAB] 500 mg PO Q6HR #20 tablet 08/31/18 Unknown Rx Ferrous Gluconate [Ferrous 324 mg PO TID #20 tablet 09/06/18 Unknown Rx Gluconate 324 MG] Lansoprazole [Prevacid] 30 mg PO DAILY #30 capsule. 09/06/18 Unknown Rx Prednisone [predniSONE 10 mg 10 mg PO .TAPER #1 tab.ds.pk 09/17/18 Unknown Rx (6-Day Pack, 21 Tabs)] levoFLOXacin [Levaquin TAB] 500 mg PO QDAY #7 tablet 09/17/18 Unknown Rx Allergies Allergy/AdvReac Type Severity Reaction Status Date / Time aspirin Allergy Hives Verified 11/11/17 02:38 ED Review of Systems ROS: Stated complaint: ABD PAIN Other details as noted in HPI Comment: All other systems reviewed and negative Constitutional: denies: fever, malaise Respiratory: denies: cough Cardiovascular: denies: chest pain ED Past Medical Hx - Past Medical History Previous Medical History?: Yes Hx Hypertension: Yes Hx CVA: Yes (TIAs, residiu. right side weakness) Hx Heart Attack/AMI: Yes (2 stents placed 2016) Hx Congestive Heart Failure: Yes Hx Diabetes: Yes Hx Deep Vein Thrombosis: Yes (R-leg) Hx Pulmonary Embolism: Yes Hx Asthma: Yes Additional medical history: Ulcers, a-fib. strong family hx of cardiac disorders - Surgical History Past Surgical History?: Yes Hx Coronary Stent: Yes (x2 2016) Additional Surgical History: Stent placement - Social History Smoking Status: Current Every Day Smoker Substance Use Type: None - Medications Home Medications: Home Medications Medication Instructions Recorded Confirmed Last Taken Type Nitroglycerin [Nitrostat] 0.4 mg SL Q5M PRN 08/24/17 06/17/18 Unknown History Carvedilol [Coreg] 12.5 mg PO BID #60 tablet 08/25/17 06/17/18 Unknown Rx Docusate Sodium [Colace CAP] 100 mg PO BID #30 capsule 05/13/18 06/17/18 Unknown Rx Bisacodyl [Dulcolax] 10 mg PO DAILY PRN #14 tab 06/18/18 Unknown Rx Nicotine [Habitrol] 21 mg TD DAILY #30 patch 06/18/18 Unknown Rx Pantoprazole [Protonix TAB] 40 mg PO BID #60 tablet 06/18/18 Unknown Rx Bisacodyl [Dulcolax] 10 mg PO DAILY 1 Days #2 tab 06/22/18 Unknown Rx Docusate Sodium [Colace] 100 mg PO BID 30 Days #60 capsule 06/22/18 Unknown Rx Magnesium Citrate [Citrate of 300 ml PO ONCE 1 Days #1 bottle 06/22/18 Unknown Rx Magnesia] Sodium Phosphate,[place]-Dibasic 118 ml RC ONCE 1 Days #1 enema 06/22/18 Unknown Rx [Fleet Enema] Cyclobenzaprine [Flexeril] 10 mg PO TID PRN #30 tablet 08/17/18 Unknown Rx Menthol/Camphor [[place] 1 applicatio TP QID PRN #1 tube 08/17/18 Unknown Rx Ointment] Naproxen [Naprosyn TAB] 500 mg PO BID #30 tablet 08/17/18 Unknown Rx Acetaminophen [Acetaminophen TAB] 500 mg PO Q6HR #20 tablet 08/31/18 Unknown Rx Ferrous Gluconate [Ferrous 324 mg PO TID #20 tablet 09/06/18 Unknown Rx Gluconate 324 MG] Lansoprazole [Prevacid] 30 mg PO DAILY #30 capsule.dr 09/06/18 Unknown Rx Prednisone [predniSONE 10 mg 10 mg PO .TAPER #1 tab.ds.pk 09/17/18 Unknown Rx (6-Day Pack, 21 Tabs)] levoFLOXacin [Levaquin TAB] 500 mg PO QDAY #7 tablet 09/17/18 Unknown Rx ED Physical Exam - General Limitations: No Limitations General appearance: alert, in no apparent distress - Head Head exam: Present: atraumatic, normocephalic - Eye Eye exam: Present: normal appearance - ENT ENT exam: Present: mucous membranes moist - Neck Neck exam: Present: normal inspection - Respiratory Respiratory exam: Present: normal lung sounds bilaterally. Absent: respiratory distress, wheezes, rales, rhonchi - Cardiovascular Cardiovascular Exam: Present: regular rate, normal rhythm, normal heart sounds. Absent: systolic murmur, diastolic murmur, rubs, gallop - GI/Abdominal GI/Abdominal exam: Present: soft, normal bowel sounds. Absent: distended, tenderness, guarding, rebound - Rectal Rectal exam: Present: deferred - Extremities Exam Extremities exam: Present: normal inspection - Back Exam Back exam: Present: normal inspection - Neurological Exam Neurological exam: Present: alert, oriented X3 - Psychiatric Psychiatric exam: Present: normal mood, flat affect - Skin Skin exam: Present: warm, dry, intact, normal color. Absent: rash ED Course Vital Signs 09/25/18 01:48 Temperature 98.6 F Pulse Rate 101 H Respiratory 18 Rate Blood Pressure 149/96 O2 Sat by Pulse 100 Oximetry ED Medical Decision Making - Lab Data Result diagrams: 09/25/18 02:42 09/25/18 02:42 - Medical Decision Making Mr. Haque presents with abdominal pain and rectal bleeding. Unremarkable H&H. White count within normal limits at 4000. No evidence of peritonitis or severe GI bleeding. Given her reassurance. Discharged home. Critical care attestation.: If time is entered above; I have spent that time in minutes in the direct care of this critically ill patient, excluding procedure time. ED Disposition Clinical Impression: Abdominal pain, Rectal bleeding Disposition: DC-01 TO HOME OR SELFCARE Is pt being admited?: No Does the pt Need Aspirin: No Condition: Stable Instructions: Acute Abdominal Pain (ED), Rectal Bleeding (ED) Referrals: KELLY JACKSON MD [Staff Physician] - 3-5 Days
[2018-09-25 04:23] VITALS: BP 136/58
== END 2018-09-25 04:30 | disposition home or self-care (01) ==
LOC: ED 01:35
DX: K62.5 Hemorrhage of anus and rectum (principal); R10.9 Unspecified abdominal pain; I11.0 Hypertensive heart disease with heart failure; I50.9 Heart failure, unspecified; I25.2 Old myocardial infarction; E11.9 Type 2 diabetes mellitus without complications; J45.909 Unspecified asthma, uncomplicated; F17.200 Nicotine dependence, unspecified, uncomplicated
CPT/HCPCS: 36415; 80053; 85007; 85025

== ENCOUNTER 2018-10-05 01:54 | Emergency (ER) | payer MEDICAID ==
[2018-10-05 02:02] VITALS: BP 133/79
--- NOTE | 2018-10-05 03:59 | Emergency Department Report ---
ED Lower Extremity HPI - General Chief Complaint: Extremity Injury, Lower Stated Complaint: LEG PAIN Source: patient Mode of arrival: Ambulatory Limitations: No Limitations - History of Present Illness Initial Comments: This is a 37-year-old -Serbian male who presents to the emergency room with right leg pain from a fall 2 days ago. Patient states he was walking in his home when he slipped and fell on right side. She is now complaining of pain and swelling to the right thigh. Past medical history of CVA with residual right-sided weakness. Patient reports a history of falls due to weakness. He denies home treatment with ice or pain medication. He denies hitting his head, loss of consciousness, numbness or tingling. MD Complaint: thigh injury Onset/Timin -: days(s) Injury: Thigh: Right Type of Injury: unknown Place: home Severity: mild Severity scale (0 -10): 2 Improves With: immobilization Worsens With: weight bearing, movement Context: fall Associated Symptoms: swelling, able to partially bear weight, ambulatory. denies: snap/pop sensation, numbness, tingling, unable to bear weight - Related Data Home Medications Medication Instructions Recorded Confirmed Last Taken Nitroglycerin [Nitrostat] 0.4 mg SL Q5M PRN 08/24/17 06/17/18 Unknown Previous Rx's Medication Instructions Recorded Last Taken Type Carvedilol [Coreg] 12.5 mg PO BID #60 tablet 08/25/17 Unknown Rx Docusate Sodium [Colace CAP] 100 mg PO BID #30 capsule 05/13/18 Unknown Rx Bisacodyl [Dulcolax] 10 mg PO DAILY PRN #14 tab 06/18/18 Unknown Rx Nicotine [Habitrol] 21 mg TD DAILY #30 patch 06/18/18 Unknown Rx Pantoprazole [Protonix TAB] 40 mg PO BID #60 tablet 06/18/18 Unknown Rx Bisacodyl [Dulcolax] 10 mg PO DAILY 1 Days #2 tab 06/22/18 Unknown Rx Docusate Sodium [Colace] 100 mg PO BID 30 Days #60 capsule 06/22/18 Unknown Rx Magnesium Citrate [Citrate of 300 ml PO ONCE 1 Days #1 bottle 06/22/18 Unknown Rx Magnesia] Sodium Phosphate,[place]-Dibasic 118 ml RC ONCE 1 Days #1 enema 06/22/18 Unknown Rx [Fleet Enema] Cyclobenzaprine [Flexeril] 10 mg PO TID PRN #30 tablet 08/17/18 Unknown Rx Menthol/Camphor [[place] 1 applicatio TP QID PRN #1 tube 08/17/18 Unknown Rx Ointment] Naproxen [Naprosyn TAB] 500 mg PO BID #30 tablet 08/17/18 Unknown Rx Acetaminophen [Acetaminophen TAB] 500 mg PO Q6HR #20 tablet 08/31/18 Unknown Rx Ferrous Gluconate [Ferrous 324 mg PO TID #20 tablet 09/06/18 Unknown Rx Gluconate 324 MG] Lansoprazole [Prevacid] 30 mg PO DAILY #30 capsule.dr 09/06/18 Unknown Rx Prednisone [predniSONE 10 mg 10 mg PO .TAPER #1 tab.ds.pk 09/17/18 Unknown Rx (6-Day Pack, 21 Tabs)] levoFLOXacin [Levaquin TAB] 500 mg PO QDAY #7 tablet 09/17/18 Unknown Rx Menthol/Camphor [[place] 18 gm TP Q4H PRN #1 oint...g. 10/05/18 Unknown Rx Ointment] Allergies Allergy/AdvReac Type Severity Reaction Status Date / Time aspirin Allergy Hives Verified 11/11/17 02:38 ED Review of Systems ROS: Stated complaint: LEG PAIN Other details as noted in HPI Constitutional: denies: chills, fever Respiratory: denies: cough, shortness of breath, wheezing Cardiovascular: denies: chest pain, palpitations Gastrointestinal: denies: abdominal pain, nausea, diarrhea Musculoskeletal: arthralgia (right thigh). denies: back pain, joint swelling Skin: denies: rash, lesions Neurological: denies: headache, weakness, paresthesias Psychiatric: denies: anxiety, depression ED Past Medical Hx - Past Medical History Previous Medical History?: Yes Hx Hypertension: Yes Hx CVA: Yes (TIAs, residiu. right side weakness) Hx Heart Attack/AMI: Yes (2 stents placed 2016) Hx Congestive Heart Failure: Yes Hx Diabetes: Yes Hx Deep Vein Thrombosis: Yes (R-leg) Hx Pulmonary Embolism: Yes Hx Asthma: Yes Additional medical history: Ulcers, a-fib. strong family hx of cardiac disorders - Surgical History Past Surgical History?: Yes Hx Coronary Stent: Yes (x2 2017) Additional Surgical History: Stent placement - Social History Smoking Status: Never Smoker Substance Use Type: None - Medications Home Medications: Home Medications Medication Instructions Recorded Confirmed Last Taken Type Nitroglycerin [Nitrostat] 0.4 mg SL Q5M PRN 08/24/17 06/17/18 Unknown History Carvedilol [Coreg] 12.5 mg PO BID #60 tablet 08/25/17 06/17/18 Unknown Rx Docusate Sodium [Colace CAP] 100 mg PO BID #30 capsule 05/13/18 06/17/18 Unknown Rx Bisacodyl [Dulcolax] 10 mg PO DAILY PRN #14 tab 06/18/18 Unknown Rx Nicotine [Habitrol] 21 mg TD DAILY #30 patch 06/18/18 Unknown Rx Pantoprazole [Protonix TAB] 40 mg PO BID #60 tablet 06/18/18 Unknown Rx Bisacodyl [Dulcolax] 10 mg PO DAILY 1 Days #2 tab 06/22/18 Unknown Rx Docusate Sodium [Colace] 100 mg PO BID 30 Days #60 capsule 06/22/18 Unknown Rx Magnesium Citrate [Citrate of 300 ml PO ONCE 1 Days #1 bottle 06/22/18 Unknown Rx Magnesia] Sodium Phosphate,[place]-Dibasic 118 ml RC ONCE 1 Days #1 enema 06/22/18 Unknown Rx [Fleet Enema] Cyclobenzaprine [Flexeril] 10 mg PO TID PRN #30 tablet 08/17/18 Unknown Rx Menthol/Camphor [[place] 1 applicatio TP QID PRN #1 tube 08/17/18 Unknown Rx Ointment] Naproxen [Naprosyn TAB] 500 mg PO BID #30 tablet 08/17/18 Unknown Rx Acetaminophen [Acetaminophen TAB] 500 mg PO Q6HR #20 tablet 08/31/18 Unknown Rx Ferrous Gluconate [[place]err[place] 324 mg PO TID #20 tablet 09/06/18 Unknown Rx Gluconate 324 MG] Lansoprazole [Prevacid] 30 mg PO DAILY #30 capsule.dr 09/06/18 Unknown Rx Prednisone [predniSONE 10 mg 10 mg PO .TAPER #1 tab.ds.pk 09/17/18 Unknown Rx (6-Day Pack, 21 Tabs)] levoFLOXacin [Levaquin TAB] 500 mg PO QDAY #7 tablet 09/17/18 Unknown Rx Menthol/Camphor [[place] 18 gm TP Q4H PRN #1 oint...g. 10/05/18 Unknown Rx Ointment] ED Physical Exam - General Limitations: No Limitations General appearance: alert, in no apparent distress, obese - Respiratory Respiratory exam: Present: normal lung sounds bilaterally. Absent: respiratory distress - Cardiovascular Cardiovascular Exam: Present: regular rate, normal rhythm. Absent: systolic murmur, diastolic murmur, rubs, gallop - GI/Abdominal GI/Abdominal exam: Present: soft, normal bowel sounds - Expanded Lower Extremity Exam Right Hip exam: Present: normal inspection, full ROM Upper Leg exam: Present: full ROM, tenderness (2 anterior mid Femur, no erythema or swelling.). Absent: swelling, abrasion, laceration, ecchymosis, deformity, crepidus, dislocation, erythema Knee exam: Present: normal inspection, full ROM Lower Leg exam: Present: normal inspection, full ROM Ankle exam: Present: normal inspection, full ROM Foot/Toe exam: Present: normal inspection, full ROM Neuro vascular tendon exam: Present: no vascular compromise Gait: Positive: observed and limited by pain - Neurological Exam Neurological exam: Present: alert, oriented X3 - Psychiatric Psychiatric exam: Present: normal affect, normal mood - Skin Skin exam: Present: warm, dry, intact, normal color. Absent: rash ED Course Vital Signs 10/05/18 10/05/18 01:56 01:57 Temperature 98.4 F 98.4 F Pulse Rate 107 H 101 H Respiratory 18 18 Rate Blood Pressure 133/79 133/79 O2 Sat by Pulse 98 98 Oximetry ED Lower Extremity MDM - Radiology Data Radiology results: report reviewed PROCEDURE: RIGHT FEMUR TECHNIQUE: RIGHT femur radiographs, AP and lateral views. CPT 39034 HISTORY: Trauma COMPARISONS: None . FINDINGS: Fracture (s) and/or Dislocation(s): None . Joint space(s): Normal . Soft tissues: Normal . Bone mineralization: Normal . Foreign bodies: None . IMPRESSION: Normal Examination . - Medical Decision Making Patient was examined by me. Vitals are normal and patient is in no acute distress. Obtained a x-ray of the right femur. X-rays dictated by radiologist and no acute findings. Patient informed of results. There are no signs of DVT such as swelling, bruising, or warmth to area. Start tiger balm for pain. Strep did return to the emergency room if swelling, warmth to the area, increase in pain. Plan discussed with patient to discharge home and treat outpatient. He agrees with ER plan. Patient discharged home in stable condition. Follow up with PCP in 2-3 days. Critical care attestation.: If time is entered above; I have spent that time in minutes in the direct care of this critically ill patient, excluding procedure time. ED Disposition Clinical Impression: Fall Qualifiers: Encounter type: initial encounter Qualified Code(s): W19.XXXA - Unspecified fall, initial encounter Acute thigh pain Qualifiers: Laterality: right Qualified Code(s): M79.651 - Pain in right thigh Muscle strain of right thigh Qualifiers: Encounter type: initial encounter Qualified Code(s): S76.911A - Strain of unspecified muscles, fascia and tendons at thigh level, right thigh, initial encounter Disposition: TO HOME OR SELFCARE Is pt being admited?: No Does the pt Need Aspirin: No Condition: Stable Instructions: Muscle Strain (ED), Arthralgia (ED) Additional Instructions: Rest Use ice or heat on affected area for 20 minutes and off for 2 hours. Take pain medication as needed for pain. Follow up with Primary Care Provider in 2-3 days. Prescriptions: Menthol/Camphor [[place] Ointment] 18 gm TP Q4H PRN #1 oint...g. PRN Reason: Pain , Severe (7-10) [facility] [Primary Care Provider[facility] - 3-5 Days CINTHYA CISNEROS MD [Staff Physician] - 3-5 Days [facility] [Outside] - 3-5 Days [facility] [Outside] - 3-5 Days Time of Disposition: 04:50
[2018-10-05] MEDS ORDERED: ULTRAM PO ONE (04:00)
--- NOTE | 2018-10-05 04:37 | XRay Report ---
PROCEDURE: RIGHT FEMUR TECHNIQUE: RIGHT femur radiographs, AP and lateral views. CPT 38754 HISTORY: Trauma COMPARISONS: None . FINDINGS: Fracture (s) and/or Dislocation(s): None . Joint space(s): Normal . Soft tissues: Normal . Bone mineralization: Normal . Foreign bodies: None . IMPRESSION: Normal Examination . This document is electronically signed by Eber Jiménez MD., October 05 2018 04:35:52 AM ET
== END 2018-10-05 05:01 | disposition home or self-care (01) ==
LOC: ED 01:54
DX: S76.911A Strain of unspecified muscles, fascia and tendons at thigh level, right thigh, initial encounter (principal); I11.0 Hypertensive heart disease with heart failure; I50.9 Heart failure, unspecified; I25.2 Old myocardial infarction; E11.9 Type 2 diabetes mellitus without complications; J45.909 Unspecified asthma, uncomplicated; Z86.73 Personal history of transient ischemic attack (TIA), and cerebral infarction without residual deficits; Z86.718 Personal history of other venous thrombosis and embolism; Z95.5 Presence of coronary angioplasty implant and graft; Z98.890 Other specified postprocedural states; Z79.899 Other long term (current) drug therapy; Z88.6 Allergy status to analgesic agent; W01.0XXA Fall on same level from slipping, tripping and stumbling without subsequent striking against object, initial encounter; Y93.89 Activity, other specified; Y92.009 Unspecified place in unspecified non-institutional (private) residence as the place of occurrence of the external cause; Y99.8 Other external cause status

== ENCOUNTER 2018-10-13 02:23 | Emergency (ER) | payer MEDICAID ==
--- NOTE | 2018-10-13 03:03 | XRay Report ---
PROCEDURE: XR CHEST 1V AP TECHNIQUE: Chest radiograph single view. HISTORY: Chest Pain COMPARISONS: September 17, 2018 . FINDINGS: Heart: Normal. Mediastinum/Vessels: Normal. Lungs/Pleural space: Normal. Bony thorax: No acute osseous abnormality. Life support devices: None. IMPRESSION: No acute cardiopulmonary abnormality. This document is electronically signed by Janett Madden DO., October 13 2018 03:01:42 AM ET
[2018-10-13 03:13] LABS: Basophils % (Auto) 1.5 % (0.0-1.8); Eosinophils # (Auto) 0.2 K/mm3 (0.0-0.4); Eosinophils % (Auto) 6.2 % (0.0-4.3); Hematocrit 33.6 % (35.5-45.6); Hemoglobin 10.7 gm/dl (11.8-15.2); Lymphocytes # (Auto) 0.9 K/mm3 (1.2-5.4); Lymphocytes % (Auto) 32.1 % (13.4-35.0); Mean Corpuscular HGB Conc 32 % (32-34); Mean Corpuscular Volume 80 fl (84-94); Monocytes # (Auto) 0.4 K/mm3 (0.0-0.8); Monocytes % (Auto) 14.4 % (0.0-7.3); Platelet Count 206 K/mm3 (140-440); Red Blood Count 4.21 M/mm3 (3.65-5.03)
[2018-10-13 03:18] LABS: Red Cell Distribution Width 21.9 % (13.2-15.2)
[2018-10-13 03:33] LABS: BUN/Creatinine Ratio 8; Blood Urea Nitrogen 10 mg/dL (9-20); Calcium 9.1 mg/dL (8.4-10.2); Hemolysis Index 6
--- NOTE | 2018-10-13 08:01 | Emergency Department Report ---
ED Chest Pain HPI - General Chief Complaint: Chest Pain Stated Complaint: CHEST PAIN Time Seen by Provider: 10/13/18 08:00 Source: patient Mode of arrival: Ambulatory Limitations: No Limitations - History of Present Illness Initial Comments: This is a 37-year-old man who is presenting to the emergency department with a highly probable factitious history. The patient comes to the emergency department at this hospital and possibly others repeatedly on a regular basis. Today he states that he developed chest pain at 7:00 last night. He states it is sharp and radiates to his left arm and his left leg. He states that he saw his journeyman level acoustic analyst 3 weeks ago and his primary care doctor in their office. I find this to be a very unlikely account of his follow-up care. In addition he tells me that he had stents placed in 2014. This is apparently false. He also gives an inaccurate history of not having a stress test since 2013. Furthermore, he states that he had a stent put in "last year". He presents with knapsack which apparently contains multiple belongings. He also presents in a very poor state of hygiene. He has been admitted to this facility within the last few months. On 06/18/2018 for following cardiology note is found: Cardiac status is stable and asymptomatic, continue GI workup for atypical chest pain. Original Note: History of Present Illness Consult date: 06/17/18 Consult reason: chest pain History of present illness: Patient is a 37 year old male with multiple emergency room visits since April of this year. He returns with complaints of chest pain. Chest x-ray and cycles troponins are negative. His ECG is sinus rhythm with nonspecific Twave abnormalities. No change from his prior ECG. There is no history of coronary disease. In fact, he had a cardiac cath at [facility] December 2013, that reports normal coronaries, EF 65%. He is on clopidogrel for primary prevention of cardiovascular disease as he has an allergy to aspirin. He has had multiple negative stress thalliums over the last 2 years with his latest done at this hospital June 2017 that documents no ischemia. Additionally, the patient states he does not go to any other hospitals. He claims he had a stent placed here which is an inaccurate. Complaint: chest pain -: Gradual, hour(s) Onset: during rest Pain Location: left chest Pain Radiation: LUE, other Severity: moderate Quality: sharp Consistency: intermittent Improves With: nothing Worsens With: nothing (left lower extremity) re: other (states he does sweat and vomits has had none here) Treatments Prior to Arrival: none Aspirin use within the Past 7 Days: (0) No - Related Data Home Medications Medication Instructions Recorded Confirmed Last Taken Nitroglycerin [Nitrostat] 0.4 mg SL Q5M PRN 08/24/17 06/17/18 Unknown Previous Rx's Medication Instructions Recorded Last Taken Type Carvedilol [Coreg] 12.5 mg PO BID #60 tablet 08/25/17 Unknown Rx Docusate Sodium [Colace CAP] 100 mg PO BID #30 capsule 05/13/18 Unknown Rx Bisacodyl [Dulcolax] 10 mg PO DAILY PRN #14 tab 06/18/18 Unknown Rx Nicotine [Habitrol] 21 mg TD DAILY #30 patch 06/18/18 Unknown Rx Pantoprazole [Protonix TAB] 40 mg PO BID #60 tablet 06/18/18 Unknown Rx Bisacodyl [Dulcolax] 10 mg PO DAILY 1 Days #2 tab 06/22/18 Unknown Rx Docusate Sodium [Colace] 100 mg PO BID 30 Days #60 capsule 06/22/18 Unknown Rx Magnesium Citrate [Citrate of 300 ml PO ONCE 1 Days #1 bottle 06/22/18 Unknown Rx Magnesia] Sodium Phosphate,[place]-Dibasic 118 ml RC ONCE 1 Days #1 enema 06/22/18 Unknown Rx [Fleet Enema] Cyclobenzaprine [Flexeril] 10 mg PO TID PRN #30 tablet 08/17/18 Unknown Rx Menthol/Camphor [[place] 1 applicatio TP QID PRN #1 tube 08/17/18 Unknown Rx Ointment] Naproxen [Naprosyn TAB] 500 mg PO BID #30 tablet 08/17/18 Unknown Rx Acetaminophen [Acetaminophen TAB] 500 mg PO Q6HR #20 tablet 08/31/18 Unknown Rx Ferrous Gluconate [Ferrous 324 mg PO TID #20 tablet 09/06/18 Unknown Rx Gluconate 324 MG] Lansoprazole [Prevacid] 30 mg PO DAILY #30 capsule. 09/06/18 Unknown Rx Prednisone [predniSONE 10 mg 10 mg PO .TAPER #1 tab.ds.pk 09/17/18 Unknown Rx (6-Day Pack, 21 Tabs)] levoFLOXacin [Levaquin TAB] 500 mg PO QDAY #7 tablet 09/17/18 Unknown Rx Menthol/Camphor [[place] 18 gm TP Q4H PRN #1 oint...g. 10/05/18 Unknown Rx Ointment] Allergies Allergy/AdvReac Type Severity Reaction Status Date / Time acetaminophen [From Tylenol] Allergy Itching Verified 10/13/18 02:33 aspirin Allergy Hives Verified 11/11/17 02:38 Heart Score - HEART Score History: Slightly suspicious EKG: Normal Age: < 45 Risk factors: 1-2 risk factors Troponin: < normal limit HEART Score: 1 - Critical Actions Critical Actions: 0-3 pts:0.9-1.7%risk of adverse cardiac event.Candidate for discharge ED Review of Systems ROS: Stated complaint: CHEST PAIN Other details as noted in HPI Constitutional: denies: chills, fever Eyes: denies: eye pain, eye discharge, vision change ENT: denies: ear pain, throat pain Respiratory: shortness of breath (sometimes not currently). denies: cough, wheezing Cardiovascular: chest pain. denies: palpitations Endocrine: no symptoms reported Gastrointestinal: vomiting. denies: abdominal pain, diarrhea Genitourinary: denies: urgency, dysuria Musculoskeletal: denies: back pain, joint swelling, arthralgia Skin: denies: rash, lesions Neurological: denies: headache, weakness, paresthesias Psychiatric: denies: anxiety, depression Hematological/Lymphatic: denies: easy bleeding, easy bruising ED Past Medical Hx - Past Medical History Previous Medical History?: Yes Hx Hypertension: Yes Hx CVA: Yes (TIAs, residiu. right side weakness) Hx Heart Attack/AMI: Yes (2 stents placed 2016) Hx Congestive Heart Failure: Yes Hx Diabetes: Yes Hx Deep Vein Thrombosis: Yes (R-leg) Hx Pulmonary Embolism: Yes Hx Asthma: Yes Additional medical history: Ulcers, a-fib. strong family hx of cardiac disorders - Surgical History Past Surgical History?: Yes Hx Coronary Stent: Yes (x2 2017) Additional Surgical History: Stent placement - Social History Smoking Status: Current Some Day Smoker - Medications Home Medications: Home Medications Medication Instructions Recorded Confirmed Last Taken Type Nitroglycerin [Nitrostat] 0.4 mg SL Q5M PRN 08/24/17 06/17/18 Unknown History Carvedilol [Coreg] 12.5 mg PO BID #60 tablet 08/25/17 06/17/18 Unknown Rx Docusate Sodium [Colace CAP] 100 mg PO BID #30 capsule 05/13/18 06/17/18 Unknown Rx Bisacodyl [Dulcolax] 10 mg PO DAILY PRN #14 tab 06/18/18 Unknown Rx Nicotine [Habitrol] 21 mg TD DAILY #30 patch 06/18/18 Unknown Rx Pantoprazole [Protonix TAB] 40 mg PO BID #60 tablet 06/18/18 Unknown Rx Bisacodyl [Dulcolax] 10 mg PO DAILY 1 Days #2 tab 06/22/18 Unknown Rx Docusate Sodium [Colace] 100 mg PO BID 30 Days #60 capsule 06/22/18 Unknown Rx Magnesium Citrate [Citrate of 300 ml PO ONCE 1 Days #1 bottle 06/22/18 Unknown Rx Magnesia] Sodium Phosphate,[place]-Dibasic 118 ml RC ONCE 1 Days #1 enema 06/22/18 Unknown Rx [Fleet Enema] Cyclobenzaprine [Flexeril] 10 mg PO TID PRN #30 tablet 08/17/18 Unknown Rx Menthol/Camphor [[place] 1 applicatio TP QID PRN #1 tube 08/17/18 Unknown Rx Ointment] Naproxen [Naprosyn TAB] 500 mg PO BID #30 tablet 08/17/18 Unknown Rx Acetaminophen [Acetaminophen TAB] 500 mg PO Q6HR #20 tablet 08/31/18 Unknown Rx Ferrous Gluconate [Ferrous 324 mg PO TID #20 tablet 09/06/18 Unknown Rx Gluconate 324 MG] Lansoprazole [Prevacid] 30 mg PO DAILY #30 capsule.dr 09/06/18 Unknown Rx Prednisone [predniSONE 10 mg 10 mg PO .TAPER #1 tab.ds.pk 09/17/18 Unknown Rx (6-Day Pack, 21 Tabs)] levoFLOXacin [Levaquin TAB] 500 mg PO QDAY #7 tablet 09/17/18 Unknown Rx Menthol/Camphor [[place] 18 gm TP Q4H PRN #1 oint...g. 10/05/18 Unknown Rx Ointment] ED Physical Exam - General Limitations: No Limitations General appearance: alert, in no apparent distress - Head Head exam: Present: atraumatic, normocephalic - Eye Eye exam: Present: normal appearance - ENT ENT exam: Present: mucous membranes moist - Neck Neck exam: Present: normal inspection - Respiratory Respiratory exam: Present: normal lung sounds bilaterally. Absent: respiratory distress - Cardiovascular Cardiovascular Exam: Present: regular rate, normal rhythm. Absent: systolic murmur, diastolic murmur, rubs, gallop - GI/Abdominal GI/Abdominal exam: Present: soft, normal bowel sounds. Absent: distended, tenderness, guarding, rebound, rigid - Rectal Rectal exam: Present: deferred - Extremities Exam Extremities exam: Present: normal inspection - Back Exam Back exam: Present: normal inspection - Neurological Exam Neurological exam: Present: alert, oriented X3, CN II-XII intact. Absent: motor sensory deficit - Psychiatric Psychiatric exam: Present: normal affect, normal mood - Skin Skin exam: Present: warm, dry, intact, normal color. Absent: rash ED Course Vital Signs 10/13/18 10/13/18 02:27 02:33 Temperature 97.9 F 97.9 F Pulse Rate 92 H 96 H Respiratory 18 18 Rate Blood Pressure 142/85 142/85 O2 Sat by Pulse 100 100 Oximetry - Reevaluation(s) Reevaluation #1: Patient is presenting with atypical chest pain and a factitious history. He's had 2 negative troponins. He is appropriate for outpatient follow-up and will be discharged. 10/13/18 08:28 Reevaluation #2: Patient found sleeping and in no distress. He was awoken. He is asymptomatic. There does appear to be a great deal of secondary gain involved in his multiple presentations and apparent factitious history. 10/13/18 08:33 KIANNA score - Kianna Score Age > 65: (0) No Aspirin use within the Past 7 Days: (0) No 3 or more CAD Risk Factors: (0) No 2 or more Angina events in past 24 hrs: (0) No Known CAD with more than 50% Stenosis: (0) No Elevated Cardiac Markers: (0) No ST Deviation Greater than 0.5mm: (0) No KIANNA Score: 0 ED Medical Decision Making - Lab Data Result diagrams: 10/13/18 02:56 10/13/18 02:56 Laboratory Results - last 24 hr 10/13/18 10/13/18 10/13/18 02:56 02:56 05:13 WBC 2.6 L RBC 4.21 Hgb 10.7 L Hct 33.6 L MCV 80 L MCH 26 L MCHC 32 RDW 21.9 H Plt Count 206 Lymph % (Auto) 32.1 [place] % (Auto) 14.4 H Eos % (Auto) 6.2 H Baso % (Auto) 1.5 Lymph # 0.9 L [place] # 0.4 Eos # 0.2 Baso # 0.0 Seg Neutrophils % 45.8 Seg Neutrophils # 1.2 L Sodium 141 Potassium 3.9 Chloride 103.5 Carbon Dioxide 26 Anion Gap 15 BUN 10 Creatinine 1.3 Estimated GFR > 60 BUN/Creatinine Ratio 8 Glucose 89 Calcium 9.1 Troponin T < 0.010 < 0.010 - EKG Data -: EKG Interpreted by Me EKG shows normal: sinus rhythm Rate: normal - EKG Data When compared to previous EKG there are: no significant change Interpretation: nonspecific ST-T wave mellissa - Radiology Data Radiology results: report reviewed Critical care attestation.: If time is entered above; I have spent that time in minutes in the direct care of this critically ill patient, excluding procedure time. ED Disposition Clinical Impression: Atypical chest pain, History of factitious disorder Disposition: DC-01 TO HOME OR SELFCARE Is pt being admited?: No Does the pt Need Aspirin: No Condition: Stable Instructions: Chest Pain (ED) Additional Instructions: Follow-up with the primary care clinic. Return to the emergency department as needed for any acute change or problem. Referrals: [facility] [Provider Group] - 24 Hours Time of Disposition: 08:32
[2018-10-13 09:18] VITALS: BP 121/58
== END 2018-10-13 08:49 | disposition home or self-care (01) ==
LOC: ED 02:23
DX: R07.89 Other chest pain (principal); I11.0 Hypertensive heart disease with heart failure; I50.9 Heart failure, unspecified; I25.2 Old myocardial infarction; E11.9 Type 2 diabetes mellitus without complications; J45.909 Unspecified asthma, uncomplicated; Z86.73 Personal history of transient ischemic attack (TIA), and cerebral infarction without residual deficits; Z86.718 Personal history of other venous thrombosis and embolism; Z95.1 Presence of aortocoronary bypass graft; Z79.899 Other long term (current) drug therapy; Z88.6 Allergy status to analgesic agent
CPT/HCPCS: 36415; 71045; 80048; 84484; 85025; 93005; 93010; 99284

== ENCOUNTER 2018-11-09 02:07 | Emergency (ER) | payer MEDICAID ==
[2018-11-09 02:13] VITALS: BP 146/85
--- NOTE | 2018-11-09 04:02 | Emergency Department Report ---
ED Back Pain/Injury HPI - General Chief Complaint: Back Pain/Injury Stated Complaint: BACK AND LEG PAIN Time Seen by Provider: 11/09/18 03:24 Source: patient Limitations: No Limitations - History of Present Illness Initial Comments: Patient is a 37-year-old male who presents to the emergency room with complaints of right lower back pain that radiates to the right hip and right lower leg that began 2 days ago. He denies any fall or injury. He states he has been ambulatory. He states he has had this before but denies any history of sciatica. He denies any numbness. He states he has had weakness in his right leg. He has a past medical history of asthma, hypertension, diabetes. He is a smoker, he denies any drug or alcohol use. - Related Data Home Medications Medication Instructions Recorded Confirmed Last Taken Nitroglycerin [Nitrostat] 0.4 mg SL Q5M PRN 08/24/17 06/17/18 Unknown Previous Rx's Medication Instructions Recorded Last Taken Type Carvedilol [Coreg] 12.5 mg PO BID #60 tablet 08/25/17 Unknown Rx Docusate Sodium [Colace CAP] 100 mg PO BID #30 capsule 05/13/18 Unknown Rx Bisacodyl [Dulcolax] 10 mg PO DAILY PRN #14 tab 06/18/18 Unknown Rx Nicotine [Habitrol] 21 mg TD DAILY #30 patch 06/18/18 Unknown Rx Pantoprazole [Protonix TAB] 40 mg PO BID #60 tablet 06/18/18 Unknown Rx Bisacodyl [Dulcolax] 10 mg PO DAILY 1 Days #2 tab 06/22/18 Unknown Rx Docusate Sodium [Colace] 100 mg PO BID 30 Days #60 capsule 06/22/18 Unknown Rx Magnesium Citrate [Citrate of 300 ml PO ONCE 1 Days #1 bottle 06/22/18 Unknown Rx Magnesia] Sodium Phosphate,[place]-Dibasic 118 ml RC ONCE 1 Days #1 enema 06/22/18 Unknown Rx [Fleet Enema] Cyclobenzaprine [Flexeril] 10 mg PO TID PRN #30 tablet 08/17/18 Unknown Rx Menthol/Camphor [[place] 1 applicatio TP QID PRN #1 tube 08/17/18 Unknown Rx Ointment] Naproxen [Naprosyn TAB] 500 mg PO BID #30 tablet 08/17/18 Unknown Rx Acetaminophen [Acetaminophen TAB] 500 mg PO Q6HR #20 tablet 08/31/18 Unknown Rx Ferrous Gluconate [Ferrous 324 mg PO TID #20 tablet 09/06/18 Unknown Rx Gluconate 324 MG] Lansoprazole [Prevacid] 30 mg PO DAILY #30 capsule. 09/06/18 Unknown Rx Prednisone [predniSONE 10 mg 10 mg PO .TAPER #1 tab.ds.pk 09/17/18 Unknown Rx (6-Day Pack, 21 Tabs)] levoFLOXacin [Levaquin TAB] 500 mg PO QDAY #7 tablet 09/17/18 Unknown Rx Menthol/Camphor [[place] 18 gm TP Q4H PRN #1 oint...g. 10/05/18 Unknown Rx Ointment] Naproxen [Naprosyn TAB] 375 mg PO BID PRN #20 tablet 11/09/18 Unknown Rx Tizanidine HCl [Zanaflex 2mg CAP] 2 mg PO QHS PRN #10 capsule 11/09/18 Unknown Rx Allergies Allergy/AdvReac Type Severity Reaction Status Date / Time acetaminophen [From Tylenol] Allergy Itching Verified 11/09/18 02:15 aspirin Allergy Hives Verified 11/09/18 02:15 ED Review of Systems ROS: Stated complaint: BACK AND LEG PAIN Other details as noted in HPI Comment: All other systems reviewed and negative ED Past Medical Hx - Past Medical History Previous Medical History?: Yes Hx Hypertension: Yes Hx CVA: Yes (TIAs, residiu. right side weakness) Hx Heart Attack/AMI: Yes (2 stents placed 2016) Hx Congestive Heart Failure: Yes Hx Diabetes: Yes Hx Deep Vein Thrombosis: Yes (R-leg) Hx Pulmonary Embolism: Yes Hx Asthma: Yes Additional medical history: Ulcers, a-fib. strong family hx of cardiac disorders - Surgical History Past Surgical History?: Yes Hx Coronary Stent: Yes (x2 2016) Additional Surgical History: Stent placement - Social History Smoking Status: Current Every Day Smoker Substance Use Type: None - Medications Home Medications: Home Medications Medication Instructions Recorded Confirmed Last Taken Type Nitroglycerin [Nitrostat] 0.4 mg SL Q5M PRN 08/24/17 06/17/18 Unknown History Carvedilol [Coreg] 12.5 mg PO BID #60 tablet 08/25/17 06/17/18 Unknown Rx Docusate Sodium [Colace CAP] 100 mg PO BID #30 capsule 05/13/18 06/17/18 Unknown Rx Bisacodyl [Dulcolax] 10 mg PO DAILY PRN #14 tab 06/18/18 Unknown Rx Nicotine [Habitrol] 21 mg TD DAILY #30 patch 06/18/18 Unknown Rx Pantoprazole [Protonix TAB] 40 mg PO BID #60 tablet 06/18/18 Unknown Rx Bisacodyl [Dulcolax] 10 mg PO DAILY 1 Days #2 tab 06/22/18 Unknown Rx Docusate Sodium [Colace] 100 mg PO BID 30 Days #60 capsule 06/22/18 Unknown Rx Magnesium Citrate [Citrate of 300 ml PO ONCE 1 Days #1 bottle 06/22/18 Unknown Rx Magnesia] Sodium Phosphate,[place]-Dibasic 118 ml RC ONCE 1 Days #1 enema 06/22/18 Unknown Rx [Fleet Enema] Cyclobenzaprine [Flexeril] 10 mg PO TID PRN #30 tablet 08/17/18 Unknown Rx Menthol/Camphor [[place] 1 applicatio TP QID PRN #1 tube 08/17/18 Unknown Rx Ointment] Naproxen [Naprosyn TAB] 500 mg PO BID #30 tablet 08/17/18 Unknown Rx Acetaminophen [Acetaminophen TAB] 500 mg PO Q6HR #20 tablet 08/31/18 Unknown Rx Ferrous Gluconate [Ferrous 324 mg PO TID #20 tablet 09/06/18 Unknown Rx Gluconate 324 MG] Lansoprazole [Prevacid] 30 mg PO DAILY #30 capsule. 09/06/18 Unknown Rx Prednisone [predniSONE 10 mg 10 mg PO .TAPER #1 tab.ds.pk 09/17/18 Unknown Rx (6-Day Pack, 21 Tabs)] levoFLOXacin [Levaquin TAB] 500 mg PO QDAY #7 tablet 09/17/18 Unknown Rx Menthol/Camphor [[place] 18 gm TP Q4H PRN #1 oint...g. 10/05/18 Unknown Rx Ointment] Naproxen [Naprosyn TAB] 375 mg PO BID PRN #20 tablet 11/09/18 Unknown Rx Tizanidine HCl [Zanaflex 2mg CAP] 2 mg PO QHS PRN #10 capsule 11/09/18 Unknown Rx ED Physical Exam - General Limitations: No Limitations General appearance: alert, in no apparent distress - Head Head exam: Present: atraumatic, normocephalic - Eye Eye exam: Present: normal appearance - ENT ENT exam: Present: mucous membranes moist - Neck Neck exam: Present: normal inspection, full ROM. Absent: tenderness - Respiratory Respiratory exam: Present: normal lung sounds bilaterally. Absent: respiratory distress, wheezes, rales, rhonchi, stridor, chest wall tenderness, accessory muscle use, decreased breath sounds, prolonged expiratory - Cardiovascular Cardiovascular Exam: Present: regular rate, normal rhythm, normal heart sounds. Absent: systolic murmur, diastolic murmur, rubs, gallop - Back Exam Back exam: Present: normal inspection, full ROM, paraspinal tenderness (right sided lumbar paraspinal muscular TTP, no midline C-spine, T-spine, or L-spine tenderness, no step offs, no deformities). Absent: vertebral tenderness - Neurological Exam Neurological exam: Present: alert, oriented X3, CN II-XII intact, other (equal social worker aide strength, 5/5 strength in the BUE, 5/5 strength in the LLE, pt will not move RLE secondary to pain, 2+ distal pulses, sensation intact) - Psychiatric Psychiatric exam: Present: normal affect, normal mood - Skin Skin exam: Present: warm, dry, intact ED Course Vital Signs 11/09/18 02:10 Temperature 98.4 F Pulse Rate 85 Respiratory 16 Rate Blood Pressure 146/85 O2 Sat by Pulse 100 Oximetry ED Medical Decision Making - Radiology Data Radiology results: report reviewed CT of the lumbar spine without contrast INDICATION: right lower back pain, weakness in the RLE. TECHNIQUE: Noncontrast axial, coronal and sagittal CT imaging through the lumbar spine was performed. All CT scans at this location are performed using CT dose reduction for ALARA by means of automated exposure control. COMPARISON: CT of the lumbar spine without contrast from 05/06/2018. FINDINGS: Vertebrae: No acute fracture. Normal alignment. Disc spaces: No significant abnormality. Facet joints: No significant abnormality. Central canal: No significant central canal stenosis or neural foraminal narrowing. Soft tissues: No acute findings. Additional findings: None. IMPRESSION: No acute abnormality of the lumbar spine. Signer Name: Lg Oakley MD Signed: 11/09/2018 4:42 AM Workstation Name: [id number] Transcribed By: MN Dictated By: Lg Oakley MD Electronically Authenticated By: Lg Oakley MD Signed Date/Time: 11/09/18 [id number] - Medical Decision Making Patient is a 37-year-old male who presents to the emergency room with complaints of right lower back pain that radiates to the right hip and right lower leg that began 2 days ago. He denies any fall or injury. He states he has been ambulatory. He states he has had this before but denies any history of sciatica. He denies any numbness. He states he has had weakness in his right leg. He has a past medical history of asthma, hypertension, diabetes. He is a smoker, he denies any drug or alcohol use. upon review of patients chart he has chronic weakness of the right lower extremity. VSS. Ct of the L-spine: shows No acute abnormality of the lumbar spine. pt given prescription for zanaflex and naproxen. advised to please take medication as prescribed. do not drive or operate heavy machinery while taking muscle relaxer. may use ice, rest, heat, epsom salt bath. follow up with a primary care doctor in the next 2-3 days. return to the emergency room for any new or worsening symptoms. - Differential Diagnosis sciatica, DDD, DJD, herniated disc, spondylolysis, spondylolisthesis Critical care attestation.: If time is entered above; I have spent that time in minutes in the direct care of this critically ill patient, excluding procedure time. ED Disposition Clinical Impression: Right leg weakness Low back pain Qualifiers: Chronicity: acute Back pain laterality: right Sciatica presence: with sciatica Sciatica laterality: sciatica of right side Qualified Code(s): M54.41 - Lumbago with sciatica, right side Disposition: -01 TO HOME OR SELFCARE Is pt being admited?: No Does the pt Need Aspirin: No Condition: Stable Instructions: Sciatica (ED) Additional Instructions: please take medication as prescribed. do not drive or operate heavy machinery while taking muscle relaxer. may use ice, rest, heat, epsom salt bath. follow up with a primary care doctor in the next 2-3 days. return to the emergency room for any new or worsening symptoms. Prescriptions: Tizanidine HCl [Zanaflex 2mg CAP] 2 mg PO QHS PRN #10 capsule PRN Reason: Muscle Spasm Naproxen [Naprosyn TAB] 375 mg PO BID PRN #20 tablet PRN Reason: pain Referrals: [facility] [Outside] - 2-3 Days [facility] [Provider Group] - 2-[address] [facility] [place] [Outside] - 2-3 Days Time of Disposition: 04:51 Print Language: ITALIAN
--- NOTE | 2018-11-09 04:46 | Cat Scan Report ---
CT of the lumbar spine without contrast INDICATION: right lower back pain, weakness in the RLE. TECHNIQUE: Noncontrast axial, coronal and sagittal CT imaging through the lumbar spine was performed. All CT sca ns at this location are performed using CT dose reduction for ALARA by means of automated exposure co ntrol. COMPARISON: CT of the lumbar spine without contrast from 05/06/2018. FINDINGS: Vertebrae: No acute fracture. Normal alignment. Disc spaces: No significant abnormality. Facet joints: No significant abnormality. Central canal: No significant central canal stenosis or neural foraminal narrowing. Soft tissues: No acute findings. Additional findings: None. IMPRESSION: No acute abnormality of the lumbar spine. Signer Name: Lg Okaley MD Signed: 11/09/2018 4:42 AM Workstation Name: [id number]
== END 2018-11-09 06:10 | disposition home or self-care (01) ==
LOC: ED 02:07
DX: M54.5 Low back pain (principal); R53.1 Weakness; I11.0 Hypertensive heart disease with heart failure; I50.9 Heart failure, unspecified; I25.2 Old myocardial infarction; E11.9 Type 2 diabetes mellitus without complications; J45.909 Unspecified asthma, uncomplicated; F17.200 Nicotine dependence, unspecified, uncomplicated; Z86.718 Personal history of other venous thrombosis and embolism; Z86.73 Personal history of transient ischemic attack (TIA), and cerebral infarction without residual deficits; Z95.1 Presence of aortocoronary bypass graft; Z88.6 Allergy status to analgesic agent
CPT/HCPCS: 72131; 99283

== ENCOUNTER 2018-12-11 00:43 | Emergency (ER) | payer MEDICAID ==
--- NOTE | 2018-12-11 01:21 | XRay Report ---
CHEST 2 VIEWS INDICATION / CLINICAL INFORMATION: Palpitations and syncope. COMPARISON: 10/13/2018. FINDINGS: SUPPORT DEVICES: None. HEART / MEDIASTINUM: The heart size and pulmonary vasculature are normal. The aorta is normal in trista anuj. LUNGS / PLEURA: No significant pulmonary or pleural abnormality. No pneumothorax. ADDITIONAL FINDINGS: No significant additional findings. IMPRESSION: No acute abnormality or significant change. Signer Name: Ender Adams MD Signed: 12/11/2018 1:16 AM Workstation Name: [id number]
[2018-12-11 01:30] LABS: Basophils % (Auto) 1.2 % (0.0-1.8); Eosinophils # (Auto) 0.1 K/mm3 (0.0-0.4); Eosinophils % (Auto) 4.1 % (0.0-4.3); Hematocrit 31.3 % (35.5-45.6); Hemoglobin 9.9 gm/dl (11.8-15.2); Mean Corpuscular HGB Conc 32 % (32-34); Mean Corpuscular Volume 78 fl (84-94); Monocytes # (Auto) 0.4 K/mm3 (0.0-0.8); Platelet Count 211 K/mm3 (140-440); Red Cell Distribution Width 18.3 % (13.2-15.2)
[2018-12-11 01:51] LABS: BUN/Creatinine Ratio 10; Blood Urea Nitrogen 12 mg/dL (9-20); Calcium 8.7 mg/dL (8.4-10.2); Hemolysis Index 6
--- NOTE | 2018-12-11 04:56 | Emergency Department Report ---
ED Syncope HPI - General Chief Complaint: Syncope Stated Complaint: PASSED OUT Time Seen by Provider: 12/11/18 02:00 Source: patient Exam Limitations: no limitations - History of Present Illness Initial Comments: 38 y.o aam, states he had a brief syncopal episode while working in [employer] this evening. States was feeling hot and dizzy, but denies any chest pain, sob, n/v, or palpitations. He currently feels fine and resting comfortably. Timing/Prior Episodes: single episode today, remote history Precipitating Factors: Positive: none Context: standing Loss of Consciousness: brief (seconds) Current Symptoms: back to normal - Related Data Allergies/Adverse Reactions: Allergies acetaminophen [From Tylenol] Allergy (Verified 11/09/18 02:15) Itching aspirin Allergy (Verified 11/09/18 02:15) Hives Home Medications: Ambulatory Orders Nitroglycerin [Nitrostat] 0.4 mg SL Q5M PRN 08/24/17 Carvedilol [Coreg] 12.5 mg PO BID #60 tablet 08/25/17 Docusate Sodium [Colace CAP] 100 mg PO BID #30 capsule 05/13/18 Bisacodyl [Dulcolax] 10 mg PO DAILY PRN #14 tab 06/18/18 Nicotine [Habitrol] 21 mg TD DAILY #30 patch 06/18/18 Pantoprazole [Protonix TAB] 40 mg PO BID #60 tablet 06/18/18 Bisacodyl [Dulcolax] 10 mg PO DAILY 1 Days #2 tab 06/22/18 Docusate Sodium [Colace] 100 mg PO BID 30 Days #60 capsule 06/22/18 Magnesium Citrate [Citrate of Magnesia] 300 ml PO ONCE 1 Days #1 bottle 06/22/18 Sodium Phosphate,[place]-Dibasic [Fleet Enema] 118 ml RC ONCE 1 Days #1 enema 06/22/18 Cyclobenzaprine [Flexeril] 10 mg PO TID PRN #30 tablet 08/17/18 Menthol/Camphor [[place] Ointment] 1 applicatio TP QID PRN #1 tube 08/17/18 Naproxen [Naprosyn TAB] 500 mg PO BID #30 tablet 08/17/18 Acetaminophen [Acetaminophen TAB] 500 mg PO Q6HR #20 tablet 08/31/18 Ferrous Gluconate [Ferrous Gluconate 324 MG] 324 mg PO TID #20 tablet 09/06/18 Lansoprazole [Prevacid] 30 mg PO DAILY #30 capsule. 09/06/18 Prednisone [predniSONE 10 mg (6-Day Pack, 21 Tabs)] 10 mg PO .TAPER #1 tab.ds.pk 09/17/18 levoFLOXacin [Levaquin TAB] 500 mg PO QDAY #7 tablet 09/17/18 Menthol/Camphor [[place] Ointment] 18 gm TP Q4H PRN #1 oint...g. 10/05/18 Naproxen [Naprosyn TAB] 375 mg PO BID PRN #20 tablet 11/09/18 Tizanidine HCl [Zanaflex 2mg CAP] 2 mg PO QHS PRN #10 capsule 11/09/18 ED Review of Systems ROS: Stated complaint: PASSED OUT Other details as noted in HPI Comment: All other systems reviewed and negative ENT: denies: ear pain Cardiovascular: denies: chest pain, palpitations, dyspnea on exertion Gastrointestinal: denies: nausea, vomiting Genitourinary: denies: urgency Skin: denies: rash Neurological: other (syncope). denies: weakness ED Past Medical Hx - Past Medical History Previous Medical History?: Yes Hx Hypertension: Yes Hx CVA: Yes (TIAs, residiu. right side weakness) Hx Heart Attack/AMI: Yes (2 stents placed 2016) Hx Congestive Heart Failure: Yes Hx Diabetes: Yes Hx Deep Vein Thrombosis: Yes (R-leg) Hx Pulmonary Embolism: Yes Hx Asthma: Yes Additional medical history: Ulcers, a-fib. strong family hx of cardiac disorders - Surgical History Past Surgical History?: Yes Hx Coronary Stent: Yes (x2 2017) Additional Surgical History: Stent placement - Social History Smoking Status: Current Every Day Smoker - Medications Home Medications: Home Medications Medication Instructions Recorded Confirmed Last Taken Type Nitroglycerin [Nitrostat] 0.4 mg SL Q5M PRN 08/24/17 06/17/18 Unknown History Carvedilol [Coreg] 12.5 mg PO BID #60 tablet 08/25/17 06/17/18 Unknown Rx Docusate Sodium [Colace CAP] 100 mg PO BID #30 capsule 05/13/18 06/17/18 Unknown Rx Bisacodyl [Dulcolax] 10 mg PO DAILY PRN #14 tab 06/18/18 Unknown Rx Nicotine [Habitrol] 21 mg TD DAILY #30 patch 06/18/18 Unknown Rx Pantoprazole [Protonix TAB] 40 mg PO BID #60 tablet 06/18/18 Unknown Rx Bisacodyl [Dulcolax] 10 mg PO DAILY 1 Days #2 tab 06/22/18 Unknown Rx Docusate Sodium [Colace] 100 mg PO BID 30 Days #60 capsule 06/22/18 Unknown Rx Magnesium Citrate [Citrate of 300 ml PO ONCE 1 Days #1 bottle 06/22/18 Unknown Rx Magnesia] Sodium Phosphate,[place]-Dibasic 118 ml RC ONCE 1 Days #1 enema 06/22/18 Unknown Rx [Fleet Enema] Cyclobenzaprine [Flexeril] 10 mg PO TID PRN #30 tablet 08/17/18 Unknown Rx Menthol/Camphor [[place] 1 applicatio TP QID PRN #1 tube 08/17/18 Unknown Rx Ointment] Naproxen [Naprosyn TAB] 500 mg PO BID #30 tablet 08/17/18 Unknown Rx Acetaminophen [Acetaminophen TAB] 500 mg PO Q6HR #20 tablet 08/31/18 Unknown Rx Ferrous Gluconate [Ferrous 324 mg PO TID #20 tablet 09/06/18 Unknown Rx Gluconate 324 MG] Lansoprazole [Prevacid] 30 mg PO DAILY #30 capsule. 09/06/18 Unknown Rx Prednisone [predniSONE 10 mg 10 mg PO .TAPER #1 tab.ds.pk 09/17/18 Unknown Rx (6-Day Pack, 21 Tabs)] levoFLOXacin [Levaquin TAB] 500 mg PO QDAY #7 tablet 09/17/18 Unknown Rx Menthol/Camphor [[place] 18 gm TP Q4H PRN #1 oint...g. 10/05/18 Unknown Rx Ointment] Naproxen [Naprosyn TAB] 375 mg PO BID PRN #20 tablet 11/09/18 Unknown Rx Tizanidine HCl [Zanaflex 2mg CAP] 2 mg PO QHS PRN #10 capsule 11/09/18 Unknown Rx ED Physical Exam - General Limitations: No Limitations General appearance: alert, in no apparent distress - Head Head exam: Present: atraumatic, normocephalic - Eye Eye exam: Present: normal appearance, PERRL, EOMI Pupils: Present: normal accommodation - ENT ENT exam: Present: normal exam - Neck Neck exam: Present: normal inspection - Respiratory Respiratory exam: Present: normal lung sounds bilaterally - Cardiovascular Cardiovascular Exam: Present: regular rate, normal rhythm - GI/Abdominal GI/Abdominal exam: Present: soft, normal bowel sounds - Extremities Exam Extremities exam: Present: normal inspection ED Course Vital Signs 12/11/18 12/11/18 12/11/18 00:49 01:34 02:20 Temperature 97.8 F 97.7 F Pulse Rate 95 H 84 79 Respiratory 18 14 19 Rate Blood Pressure 134/86 Blood Pressure 123/78 [Right] O2 Sat by Pulse 100 97 Oximetry 12/11/18 12/11/18 12/11/18 02:31 03:01 03:31 Temperature Pulse Rate 76 81 80 Respiratory 20 19 19 Rate Blood Pressure 123/78 123/78 123/78 Blood Pressure [Right] O2 Sat by Pulse 96 97 98 Oximetry 12/11/18 06:00 Temperature Pulse Rate 69 Respiratory 14 Rate Blood Pressure Blood Pressure 108/59 [Right] O2 Sat by Pulse Oximetry ED Medical Decision Making - Lab Data Result diagrams: 12/11/18 01:08 12/11/18 01:08 Critical care attestation.: If time is entered above; I have spent that time in minutes in the direct care of this critically ill patient, excluding procedure time. ED Disposition Clinical Impression: Syncope Qualifiers: Syncope type: unspecified Qualified Code(s): R55 - Syncope and collapse Disposition: DC-01 TO HOME OR SELFCARE Is pt being admited?: No Does the pt Need Aspirin: No Condition: Stable Instructions: Syncope (ED) Referrals: ROBERT QUIÑONEZ MD [Primary Care Provider] - 3-5 Days
--- NOTE | 2018-12-11 05:45 | Cat Scan Report ---
CT head/brain wo con INDICATION / CLINICAL INFORMATION: Multiple syncopal episodes. TECHNIQUE: All CT scans at this location are performed using CT dose reduction for ALARA by means of automated e xposure control. COMPARISON: 06/17/2018. FINDINGS: The ventricular system is normal in size and configuration. No focal lesion or mass effect is seen. T here is no evidence of intracranial hemorrhage or major vessel occlusion. The calvarium is intact. Th e visualized paranasal sinuses and mastoid air cells are clear. IMPRESSION: No acute abnormality or significant change. Signer Name: Ender Adams MD Signed: 12/11/2018 5:41 AM Workstation Name: [id number]
[2018-12-11 06:04] VITALS: BP 108/59
== END 2018-12-11 06:45 | disposition home or self-care (01) ==
LOC: ED 00:43
DX: R55 Syncope and collapse (principal); I11.0 Hypertensive heart disease with heart failure; I50.9 Heart failure, unspecified; I48.91 Unspecified atrial fibrillation; J45.909 Unspecified asthma, uncomplicated; E11.9 Type 2 diabetes mellitus without complications; F17.200 Nicotine dependence, unspecified, uncomplicated; Z86.718 Personal history of other venous thrombosis and embolism; Z88.6 Allergy status to analgesic agent; Z79.899 Other long term (current) drug therapy; Z86.711 Personal history of pulmonary embolism; Z95.1 Presence of aortocoronary bypass graft; Z86.73 Personal history of transient ischemic attack (TIA), and cerebral infarction without residual deficits
CPT/HCPCS: 36415; 70450; 71046; 80048; 84484; 85025; 93005; 93010; 99285

== ENCOUNTER 2019-01-19 01:06 | Emergency (ER) | payer MEDICAID ==
[2019-01-19] MEDS ORDERED: fentaNYL 100 MCG/2 ML INJ IV ONE (03:38)
[2019-01-19] MEDS ORDERED: ONDANSETRON 4 MG/2 ML INJ IV ONE (03:38)
--- NOTE | 2019-01-19 03:46 | Emergency Department Report ---
HPI - General Chief Complaint: Chest Pain Time Seen by Provider: 01/19/19 03:19 - HPI HPI: Room 3 The patient is a 38-year-old male presented with the chief complaint of left chest and back pain. The patient states for the past 4-5 days as constant sharp pain in his back and left chest. Patient was shortness of breath with this pain. Patient states he was in his back approximately 3 weeks ago requiring admission to the hospital chest to. Patient states she's also had intermittent weakness in the right lower extremity. Past 3-4 days. Patient denies preceding trauma Location: [See above] Duration: [See above] Quality: [See above] Severity: [See above] Timing: [See above] Context: [See above] Modifying factors: [See above] Associated signs and symptoms: [see above] ED Past Medical Hx - Past Medical History Previous Medical History?: Yes Hx Hypertension: Yes Hx CVA: Yes (TIAs, residiu. right side weakness) Hx Heart Attack/AMI: Yes (2 stents placed 2016) Hx Congestive Heart Failure: Yes Hx Diabetes: Yes Hx Deep Vein Thrombosis: Yes (R-leg) Hx Pulmonary Embolism: Yes Hx Asthma: Yes Additional medical history: Ulcers, a-fib. strong family hx of cardiac disorders - Surgical History Past Surgical History?: Yes Hx Coronary Stent: Yes (x2 2016) Additional Surgical History: Stent placement - Family History Family history: no significant - Social History Smoking Status: Current Every Day Smoker Substance Use Type: Marijuana - Medications Home Medications: Home Medications Medication Instructions Recorded Confirmed Last Taken Type Nitroglycerin [Nitrostat] 0.4 mg SL Q5M PRN 08/24/17 06/17/18 Unknown History Carvedilol [Coreg] 12.5 mg PO BID #60 tablet 08/25/17 06/17/18 Unknown Rx Docusate Sodium [Colace CAP] 100 mg PO BID #30 capsule 05/13/18 06/17/18 Unknown Rx Bisacodyl [Dulcolax] 10 mg PO DAILY PRN #14 tab 06/18/18 Unknown Rx Nicotine [Habitrol] 21 mg TD DAILY #30 patch 06/18/18 Unknown Rx Pantoprazole [Protonix TAB] 40 mg PO BID #60 tablet 06/18/18 Unknown Rx Bisacodyl [Dulcolax] 10 mg PO DAILY 1 Days #2 tab 06/22/18 Unknown Rx Docusate Sodium [Colace] 100 mg PO BID 30 Days #60 capsule 06/22/18 Unknown Rx Magnesium Citrate [Citrate of 300 ml PO ONCE 1 Days #1 bottle 06/22/18 Unknown Rx Magnesia] Sodium Phosphate,[place]-Dibasic 118 ml RC ONCE 1 Days #1 enema 06/22/18 Unknown Rx [Fleet Enema] Cyclobenzaprine [Flexeril] 10 mg PO TID PRN #30 tablet 08/17/18 Unknown Rx Menthol/Camphor [[place] 1 applicatio TP QID PRN #1 tube 08/17/18 Unknown Rx Ointment] Naproxen [Naprosyn TAB] 500 mg PO BID #30 tablet 08/17/18 Unknown Rx Acetaminophen [Acetaminophen TAB] 500 mg PO Q6HR #20 tablet 08/31/18 Unknown Rx Ferrous Gluconate [Ferrous 324 mg PO TID #20 tablet 09/06/18 Unknown Rx Gluconate 324 MG] Lansoprazole [Prevacid] 30 mg PO DAILY #30 capsule.dr 09/06/18 Unknown Rx Prednisone [predniSONE 10 mg 10 mg PO .TAPER #1 tab.ds.pk 09/17/18 Unknown Rx (6-Day Pack, 21 Tabs)] levoFLOXacin [Levaquin TAB] 500 mg PO QDAY #7 tablet 09/17/18 Unknown Rx Menthol/Camphor [Salol [place] 18 gm TP Q4H PRN #1 oint...g. 10/05/18 Unknown Rx Ointment] Naproxen [Naprosyn TAB] 375 mg PO BID PRN #20 tablet 11/09/18 Unknown Rx Tizanidine HCl [Zanaflex 2mg CAP] 2 mg PO QHS PRN #10 capsule 11/09/18 Unknown Rx traMADol [Ultram] 50 mg PO Q6HR PRN #10 tablet 01/19/19 Unknown Rx ED Review of Systems ROS: Stated complaint: CHEST/BACK PAIN Other details as noted in HPI Constitutional: no symptoms reported Eyes: denies: eye pain ENT: denies: throat pain Respiratory: shortness of breath Cardiovascular: chest pain Endocrine: no symptoms reported Gastrointestinal: denies: nausea, vomiting Genitourinary: denies: dysuria Musculoskeletal: back pain Neurological: weakness Physical Exam - Physical Exam Vital Signs: Vital Signs 01/19/19 01/19/19 01:16 02:30 Temperature 98.4 F 98.7 F Pulse Rate 101 H 105 H Respiratory 18 24 Rate Blood Pressure 127/74 Blood Pressure 119/77 [Left] O2 Sat by Pulse 98 99 Oximetry Physical Exam: GENERAL: The patient is well-developed well-nourished male sleeping on stretcher not appearing to be in acute distress. [] HEENT: Normocephalic. Atraumatic. Extraocular motions are intact. Patient has moist mucous membranes. NECK: Supple. Trachea midline CHEST/LUNGS: Clear to auscultation. There is no respiratory distress noted. HEART/CARDIOVASCULAR: Regular. There is no tachycardia. There is no gallop rub or murmur. ABDOMEN: Abdomen is soft, nontender. Patient has normal bowel sounds. There is no abdominal distention. SKIN: There is no rash. There is no edema. There is no diaphoresis. NEURO: The patient is awake, alert, and oriented. The patient is cooperative. Cranial nerves II through XII grossly intact. The patient has normal speech MUSCULOSKELETAL: There is no evidence of acute injury. ED Course Vital Signs 01/19/19 01/19/19 01:16 02:30 Temperature 98.4 F 98.7 F Pulse Rate 101 H 105 H Respiratory 18 24 Rate Blood Pressure 127/74 Blood Pressure 119/77 [Left] O2 Sat by Pulse 98 99 Oximetry ED Medical Decision Making - Lab Data Result diagrams: 01/19/19 04:00 01/19/19 04:00 Laboratory Tests 01/19/19 01/19/19 01/19/19 04:00 04:00 04:00 WBC 3.3 L RBC 3.44 L Hgb 8.3 L Hct 26.4 L MCV 77 L MCH 24 L MCHC 31 L RDW 18.8 H Plt Count 239 [place] % (Auto) Pin Or Clip Fastener Add Manual Diff Complete Total Counted 100 Seg Neuts % (Manual) 51.0 Band Neutrophils % 0 Lymphocytes % (Manual) 31.0 Reactive Lymphs % (Man) 0 Monocytes % (Manual) 16.0 H Eosinophils % (Manual) 1.0 Basophils % (Manual) 1.0 Metamyelocytes % 0 Myelocytes % 0 Promyelocytes % 0 Blast Cells % 0 Nucleated RBC % Not Reportable Seg Neutrophils # Man 1.7 L Band Neutrophils # 0.0 Lymphocytes # (Manual) 1.0 L Abs React Lymphs (Man) 0.0 Monocytes # (Manual) 0.5 Eosinophils # (Manual) 0.0 Basophils # (Manual) 0.0 Metamyelocytes # 0.0 Myelocytes # 0.0 Promyelocytes # 0.0 Blast Cells # 0.0 WBC Morphology Not Reportable Hypersegmented Neuts Not Reportable Hyposegmented Neuts Not Reportable Hypogranular Neuts Not Reportable Smudge Cells Not Reportable Toxic Granulation Not Reportable Toxic Vacuolation Not Reportable Dohle Bodies Not Reportable Pelger-Huet Anomaly Not Reportable Clair Rods Not Reportable Platelet Estimate Not Reportable Clumped Platelets Not Reportable Plt Clumps, EDTA Not Reportable Large Platelets Not Reportable Giant Platelets Not Reportable Platelet Satelliting Not Reportable Plt Morphology Comment Not Reportable RBC Morphology Not Reportable Dimorphic RBCs Not Reportable Polychromasia Not Reportable Hypochromasia 1+ Poikilocytosis Not Reportable Anisocytosis Not Reportable Microcytosis Not Reportable Macrocytosis Not Reportable Spherocytes Not Reportable Pappenheimer Bodies Not Reportable Sickle Cells Not Reportable Target Cells Not Reportable Tear Drop Cells Not Reportable Ovalocytes Not Reportable Helmet Cells Not Reportable [place] Bodies Not Reportable [place] Rings Not Reportable Melo Cells Not Reportable Bite Cells Not Reportable Crenated Cell Not Reportable Elliptocytes Not Reportable Acanthocytes (Spur) Not Reportable Rouleaux Not Reportable Hemoglobin C Crystals Not Reportable Schistocytes Not Reportable Malaria parasites Not Reportable Dale Bodies Not Reportable Hem Pathologist Commnt No PT 16.5 H INR 1.37 H APTT 25.8 Sodium 140 Potassium 3.6 Chloride 103.0 Carbon Dioxide 23 Anion Gap 18 BUN 11 Creatinine 1.2 Estimated GFR > 60 BUN/Creatinine Ratio 9 Glucose 127 H Calcium 8.6 Total Creatine Kinase 252 H CK-MB (CK-2) 1.5 CK-MB (CK-2) Rel Index 0.5 Troponin T < 0.010 - EKG Data -: EKG Interpreted by Tx EKG shows normal: sinus rhythm Rate: normal - EKG Data When compared to previous EKG there are: no significant change Interpretation: unchanged when compared t (12/11/2018) - Radiology Data Radiology results: report reviewed (CT head, CT chest), image reviewed (CT head, CT chest) [facility] [address] [place] [address] Cat Scan Report Signed Patient: DYAN SHEFFIELD JR MR#: [id number] : 1980 Acct:[id number] Age/Sex: 38 / M ADM Date: 01/19/19 Loc: ED Attending Dr: Ordering Physician: MARILEE HARRINGTON MD Date of Service: 01/19/19 Procedure(s): CT head/brain wo con Accession Number(s): [id number] cc: MARILEE HARRINGTON MD CT HEAD WITHOUT CONTRAST INDICATION / CLINICAL INFORMATION: intermittent right leg weakness. TECHNIQUE: All CT scans at this location are performed using CT dose reduction for ALARA by means of automated exposure control. COMPARISON: CT dated 12/11/18 FINDINGS: HEMORRHAGE: None. EXTRA-AXIAL SPACES: Normal in size and morphology for the patient's age. VENTRICULAR SYSTEM: Normal in size and morphology for the patient's age. CEREBRAL PARENCHYMA: No significant abnormality. No acute territorial infarct. MIDLINE SHIFT OR HERNIATION: None. CEREBELLUM / BRAINSTEM: No significant abnormality. ORBITS: Normal as visualized. SOFT TISSUES of HEAD: No significant abnormality. CALVARIUM: No significant abnormality. PARANASAL SINUSES / MASTOID AIR CELLS: Normal as visualized. ADDITIONAL FINDINGS: None. IMPRESSION: 1. No acute intracranial abnormality. No significant change. Signer Name: Gilson Graff MD Signed: 01/19/2019 5:45 AM Workstation Name: [id number] Transcribed By: DT Dictated By: Olvin Graff MD Electronically Authenticated By: Olvin Graff MD Signed Date/Time: 01/19/19 0545 DD/ 0540 TD/TT: [facility] [address] [place] [address] Cat Scan Report Signed Patient: DYAN SHEFFIELD JR MR#: [id number] : 1980 Acct:[id number] Age/Sex: 38 / M ADM Date: 01/19/19 Loc: ED Attending Dr: Ordering Physician: MARILEE HARRINGTON MD Date of Service: 01/19/19 Procedure(s): CT angio chest Accession Number(s): [id number] cc: MARILEE HARRINGTON MD CTA CHEST WITH CONTRAST INDICATION / CLINICAL INFORMATION: chest pain, shortness of breath. TECHNIQUE: Axial CT images were obtained through the chest after injection of 100 mL Omnipaque 350 IV contrast. 3 plane MIP and/or 3D reconstructions were produced. All CT scans at this location are performed using CT dose reduction for ALARA by means of automated exposure control. COMPARISON: CT chest dated 08/09/15 is not immediately available for review. FINDINGS: PULMONARY ARTERIES: No pulmonary emboli. THORACIC AORTA: No significant abnormality. HEART: No significant abnormality. CORONARY ARTERIES: No significant calcification. MEDIA STINUM / YUN: No significant abnormality. PLEURA: No pleural effusion. No pneumothorax. LUNGS: No acute air space or interstitial disease. ADDITIONAL FINDINGS: None. UPPER ABDOMEN: No acute findings. SKELETAL STRUCTURES: No significant osseous abnormality. IMPRESSION: 1. No CT evidence for pulmonary embolism. 2. No acute findings. Signer Name: Gilson Graff MD Signed: 01/19/2019 5:47 AM Workstation Name: [id number] Transcribed By: DT Dictated By: Olvin Graff MD Electronically Authenticated By: Olvin Graff MD Signed Date/Time: 01/19/1947 DD/ TD/TT: - Differential Diagnosis pneumothorax, PE, ACS, pericarditis, GERD, malingering Critical care attestation.: If time is entered above; I have spent that time in minutes in the direct care of this critically ill patient, excluding procedure time. ED Disposition Clinical Impression: Atypical chest pain Disposition: -01 TO HOME OR SELFCARE Is pt being admited?: No Does the pt Need Aspirin: No Condition: Stable Instructions: Chest Pain (ED) Additional Instructions: Return to the emergency department should you develop worsening symptoms, inability to tolerate food or liquids, high fever or any other concerns Prescriptions: traMADol [Ultram] 50 mg PO Q6HR PRN #10 tablet PRN Reason: Pain Referrals: PRIMARY CARE, [Primary Care Provider] - 3-5 Days Time of Disposition: 06:10
[2019-01-19 04:16] LABS: Hematocrit 26.4 % (35.5-45.6); Hemoglobin 8.3 gm/dl (11.8-15.2); Mean Corpuscular HGB Conc 31 % (32-34); Mean Corpuscular Volume 77 fl (84-94); Platelet Count 239 K/mm3 (140-440); Red Blood Count 3.44 M/mm3 (3.65-5.03); Red Cell Distribution Width 18.8 % (13.2-15.2)
[2019-01-19 04:29] LABS: INR 1.37 (0.87-1.13)
[2019-01-19 04:30] LABS: Partial Thromboplastin Time 25.8 Sec. (24.2-36.6)
[2019-01-19 04:34] LABS: Creatine Kinase MB 1.5 ng/mL (0.0-4.0)
[2019-01-19 04:36] LABS: BUN/Creatinine Ratio 9; Blood Urea Nitrogen 11 mg/dL (9-20); Calcium 8.6 mg/dL (8.4-10.2); Hemolysis Index 0
[2019-01-19 04:58] LABS: Total Cells Counted 100
[2019-01-19 04:59] LABS: Hypochromasia 1+
--- NOTE | 2019-01-19 05:49 | Cat Scan Report ---
CT HEAD WITHOUT CONTRAST INDICATION / CLINICAL INFORMATION: intermittent right leg weakness. TECHNIQUE: All CT scans at this location are performed using CT dose reduction for ALARA by means of automated e xposure control. COMPARISON: CT dated 12/11/18 FINDINGS: HEMORRHAGE: None. EXTRA-AXIAL SPACES: Normal in size and morphology for the patient's age. VENTRICULAR SYSTEM: Normal in size and morphology for the patient's age. CEREBRAL PARENCHYMA: No significant abnormality. No acute territorial infarct. MIDLINE SHIFT OR HERNIATION: None. CEREBELLUM / BRAINSTEM: No significant abnormality. ORBITS: Normal as visualized. SOFT TISSUES of HEAD: No significant abnormality. CALVARIUM: No significant abnormality. PARANASAL SINUSES / MASTOID AIR CELLS: Normal as visualized. ADDITIONAL FINDINGS: None. IMPRESSION: 1. No acute intracranial abnormality. No significant change. Signer Name: Gilson Graff MD Signed: 01/19/2019 5:45 AM Workstation Name: [id number]
--- NOTE | 2019-01-19 05:52 | Cat Scan Report ---
CTA CHEST WITH CONTRAST INDICATION / CLINICAL INFORMATION: chest pain, shortness of breath. TECHNIQUE: Axial CT images were obtained through the chest after injection of 100 mL Omnipaque 350 IV contrast. 3 plane MIP and/or 3D reconstructions were produced. All CT scans at this location are performed usin g CT dose reduction for REGINALDRA by means of automated exposure control. COMPARISON: CT chest dated 08/09/15 is not immediately available for review. FINDINGS: PULMONARY ARTERIES: No pulmonary emboli. THORACIC AORTA: No significant abnormality. HEART: No significant abnormality. CORONARY ARTERIES: No significant calcification. MEDIASTINUM / YUN: No significant abnormality. PLEURA: No pleural effusion. No pneumothorax. LUNGS: No acute air space or interstitial disease. ADDITIONAL FINDINGS: None. UPPER ABDOMEN: No acute findings. SKELETAL STRUCTURES: No significant osseous abnormality. IMPRESSION: 1. No CT evidence for pulmonary embolism. 2. No acute findings. Signer Name: Gilson Graff MD Signed: 01/19/2019 5:47 AM Workstation Name: [id number]
[2019-01-19 06:15] VITALS: BP 103/62
== END 2019-01-19 06:30 | disposition home or self-care (01) ==
LOC: ED 01:06
DX: R07.89 Other chest pain (principal); M54.9 Dorsalgia, unspecified; R53.1 Weakness; I11.0 Hypertensive heart disease with heart failure; I50.9 Heart failure, unspecified; I25.2 Old myocardial infarction; E11.9 Type 2 diabetes mellitus without complications; J45.909 Unspecified asthma, uncomplicated; F17.200 Nicotine dependence, unspecified, uncomplicated; F12.10 Cannabis abuse, uncomplicated; Z86.73 Personal history of transient ischemic attack (TIA), and cerebral infarction without residual deficits; Z86.718 Personal history of other venous thrombosis and embolism; Z86.711 Personal history of pulmonary embolism; Z88.6 Allergy status to analgesic agent; Z95.5 Presence of coronary angioplasty implant and graft
CPT/HCPCS: 36415; 70450; 71275; 80048; 82550; 82553; 84484; 85007; 85025; 85610; 85730; 93005; 93010; 96374; 96375; 99284; J2405; J3010; Q9967

== ENCOUNTER 2019-02-08 00:03 | Emergency (ER) | payer MEDICAID ==
[2019-02-08 01:46] LABS: Basophils # (Auto) 0.1 K/mm3 (0.0-0.1); Basophils % (Auto) 1.1 % (0.0-1.8); Eosinophils # (Auto) 0.1 K/mm3 (0.0-0.4); Eosinophils % (Auto) 2.4 % (0.0-4.3); Hematocrit 33.5 % (35.5-45.6); Hemoglobin 10.4 gm/dl (11.8-15.2); Lymphocytes # (Auto) 0.9 K/mm3 (1.2-5.4); Lymphocytes % (Auto) 16.2 % (13.4-35.0); Mean Corpuscular HGB Conc 31 % (32-34); Mean Corpuscular Volume 76 fl (84-94); Monocytes # (Auto) 0.8 K/mm3 (0.0-0.8); Monocytes % (Auto) 14.8 % (0.0-7.3); Platelet Count 303 K/mm3 (140-440); Red Blood Count 4.39 M/mm3 (3.65-5.03); Red Cell Distribution Width 18.5 % (13.2-15.2)
--- NOTE | 2019-02-08 01:55 | XRay Report ---
CHEST 1 VIEW INDICATION / CLINICAL INFORMATION: Chest Pain. COMPARISON: None available. FINDINGS: SUPPORT DEVICES: None. HEART / MEDIASTINUM: No significant abnormality. LUNGS / PLEURA: No significant pulmonary or pleural abnormality. No pneumothorax. ADDITIONAL FINDINGS: No significant additional findings. IMPRESSION: 1. No acute findings. Signer Name: Silvano Jones MD Signed: 02/08/2019 1:51 AM Workstation Name: [id number]
[2019-02-08 02:08] LABS: BUN/Creatinine Ratio 12; Blood Urea Nitrogen 12 mg/dL (9-20); Calcium 9.1 mg/dL (8.4-10.2); Hemolysis Index 12
[2019-02-08] MEDS ORDERED: PEPCID IV ONE (06:34)
[2019-02-08] MEDS ORDERED: ZOFRAN IV ONE (06:34)
[2019-02-08] MEDS ORDERED: CARAFATE PO ONE (06:34)
[2019-02-08] MEDS ORDERED: NACL 0.9% 1000 ML 1,000 ML IV ONE (06:34)
[2019-02-08] MEDS ORDERED: NACL 0.9% 500 ML 500 ML IV ONE (06:35)
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
[2019-02-08 07:12] LABS: Hematocrit 30.2 % (35.5-45.6); Hemoglobin 9.5 gm/dl (11.8-15.2)
--- NOTE | 2019-02-08 08:32 | Cat Scan Report ---
Head CT without intravenous contrast INDICATION: Syncope COMPARISON: 01/19/2019 FINDINGS: The ventricles are normal in size and position. No hemorrhage or extra-axial fluid collecti on. No edema or mass effect. No focal infarct seen. Portions of the sinuses visualized show maxillary sinus mucus retention cysts. There is slight mucosal thickening of ethmoid air cells.. No skull frac ture identified. IMPRESSION: Negative head CT Automated exposure control was utilized to diminish radiation dose Signer Name: Levi Cueto MD Signed: 02/08/2019 8:27 AM Workstation Name: [id number]
--- NOTE | 2019-02-08 09:05 | Cat Scan Report ---
CT of the abdomen and pelvis with contrast INDICATION: Back pain with nausea and vomiting COMPARISON: 05/13/2018 FINDINGS: The liver, spleen, pancreas and adrenal glands all appear normal. Small renal cysts are not ed with the kidneys otherwise unremarkable. No definite gallbladder or biliary tree abnormality. No f luid or adenopathy in the upper abdomen. Appendix is seen in the right upper quadrant and is normal. CT of the pelvis shows no pelvic fluid or adenopathy. Prostate is not enlarged. There is no bowel obs truction. Small right inguinal hernia contains fat and minimal fluid but this appearance is unchanged . No significant skeletal lesion. IMPRESSION: Negative study. No significant change from April. CT angiography of the chest with 2-D reconstructions INDICATION: Chest and back pain Thin section axial images were obtained as well as 2-D reformatted MIP images in all 3 planes FINDINGS: There is no hilar or mediastinal adenopathy. No pleural or pericardial effusion. Lung windo ws show no nodules, masses or infiltrates. There is no thoracic aortic aneurysm or dissection present . Routine axial images as well as 2-D reconstructions through the pulmonary arteries show no evidence of emboli. IMPRESSION: Negative chest CTA Automated exposure control was utilized to diminish radiation dose. Signer Name: Levi Cueto MD Signed: 02/08/2019 9:01 AM Workstation Name: [email or web address]
[2019-02-08 10:30] VITALS: BP 121/86
== END 2019-02-08 10:29 | disposition home or self-care (01) ==
LOC: ED 00:03
DX: R07.89 Other chest pain (principal); M54.89 Other dorsalgia; R11.2 Nausea with vomiting, unspecified; R55 Syncope and collapse; I11.0 Hypertensive heart disease with heart failure; I50.9 Heart failure, unspecified; I25.2 Old myocardial infarction; J45.909 Unspecified asthma, uncomplicated; F17.200 Nicotine dependence, unspecified, uncomplicated; E11.9 Type 2 diabetes mellitus without complications; Z86.718 Personal history of other venous thrombosis and embolism; Z79.01 Long term (current) use of anticoagulants; Z86.711 Personal history of pulmonary embolism; Z95.5 Presence of coronary angioplasty implant and graft; Z79.899 Other long term (current) drug therapy; Z88.6 Allergy status to analgesic agent
CPT/HCPCS: 36415; 70450; 71045; 71275; 74177; 80048; 82550; 83735; 84484; 85014; 85018; 85025; 93005; 93010; 96361; 96374; 96375; 99285; J2405; J7030; Q9967; 80320; G0480

== ENCOUNTER 2019-05-29 00:09 | Emergency (ER) | payer MEDICAID ==
--- NOTE | 2019-05-29 06:40 | Emergency Department Report ---
ED Chest Pain HPI - General Chief Complaint: Chest Pain Stated Complaint: CHEST PAIN AND BACK PAIN Time Seen by Provider: 05/29/19 06:36 Source: patient Mode of arrival: Ambulatory Limitations: No Limitations - History of Present Illness Initial Comments: This is a 38-year-old man that does have a history of factitious illness. See his 2019 emergency department report below. He states that he was seen in emergency department 2 days ago in [place] for a complaint of chest pain similar to that of today. He has had several previous CT examinations including a CT angiogram of the chest which showed no abnormality. He states that his chest pain is sharp and radiates to the back and also to his arm. According to previous records he's had a normal cardiac catheterization in 2013. He states that he was not told any of his workup was abnormal at the emergency department in [place] 2 days ago. He states that his legs were not checked for a blood clot. He also states that he has been on "Plavix and Coumadin" in the past. At the time of my encounter he is resting comfortably and not requesting pain medication at all. He does appear to have social issues. He denies shortness of breath, cough, fever. He has not been vomiting. He does state that his legs are swollen. Patient also states that yesterday he passed out. Upon additional questioning, he states that he was walking and caught himself on the way down. He did not fall. He was not completely unconscious. Pertinent 2019 ER record: This is a 38-year-old gentleman. I have evaluated this patient in the past. The patient has a documented history of no coronary artery disease, has a catheterization from 2013 negative for acute disease, multiple negative stress thallium, EGD at this hospital which showed moderate amount of retained fluid in proximal portion of stomach, mild gastritis, history of faking stroke symptoms (March 2018), chronic constipation, history of hematemesis The patient presents to the ER with a complaint of chest pain, back pain, loss of consciousness, multiple episodes of nausea and vomiting, and vomiting blood. His symptoms started yesterday at 7:00 PM. He states that the chest pain and back pain started simultaneously. He reports that he was admitted to a [facility] for 2 weeks within the past month for "stabbing in my back." He is not sure which hospital he was admitted to. The patient makes no complaint of defecating blood, and he states he cannot recall exacerbating or relieving factors. MD Complaint: chest pain -: Gradual, days(s) Onset: during rest Pain Location: left chest Pain Radiation: LUE Severity: mild, moderate Quality: other (sharp) Consistency: intermittent Improves With: nothing Worsens With: nothing re: denies: nausea, vomting, diaphoresis, dyspnea, sense of impending doom - Related Data Home Medications Medication Instructions Recorded Confirmed Last Taken Nitroglycerin [Nitrostat] 0.4 mg SL Q5M PRN 08/24/17 06/17/18 Unknown Previous Rx's Medication Instructions Recorded Last Taken Type carvediloL [Coreg] 12.5 mg PO BID #60 tablet 08/25/17 Unknown Rx Docusate Sodium [Colace CAP] 100 mg PO BID #30 capsule 05/13/18 Unknown Rx Nicotine [Habitrol] 21 mg TD DAILY #30 patch 06/18/18 Unknown Rx Pantoprazole [Protonix TAB] 40 mg PO BID #60 tablet 06/18/18 Unknown Rx bisacodyL [Dulcolax] 10 mg PO DAILY PRN #14 tab 06/18/18 Unknown Rx Docusate Sodium [Colace] 100 mg PO BID 30 Days #60 capsule 06/22/18 Unknown Rx Magnesium Citrate [Citrate of 300 ml PO ONCE 1 Days #1 bottle 06/22/18 Unknown Rx Magnesia] Sodium Phosphate,Rogers-Dibasic 118 ml RC ONCE 1 Days #1 enema 06/22/18 Unknown Rx [Fleet Enema] bisacodyL [Dulcolax] 10 mg PO DAILY 1 Days #2 tab 06/22/18 Unknown Rx Menthol/Camphor [[place] 1 applicatio TP QID PRN #1 tube 08/17/18 Unknown Rx Ointment] Acetaminophen [Acetaminophen TAB] 500 mg PO Q6HR #20 tablet 08/31/18 Unknown Rx Ferrous Gluconate [Ferrous 324 mg PO TID #20 tablet 09/06/18 Unknown Rx Gluconate 324 MG] Lansoprazole [Prevacid] 30 mg PO DAILY #30 capsule. 09/06/18 Unknown Rx Prednisone [predniSONE 10 mg 10 mg PO .TAPER #1 tab.ds.pk 09/17/18 Unknown Rx (6-Day Pack, 21 Tabs)] levoFLOXacin [Levaquin TAB] 500 mg PO QDAY #7 tablet 09/17/18 Unknown Rx Menthol/Camphor [[place] 18 gm TP Q4H PRN #1 oint...g. 10/05/18 Unknown Rx Ointment] Famotidine [Pepcid] 20 mg PO BID #60 tablet 02/08/19 Unknown Rx Ondansetron [Zofran Odt] 4 mg PO Q8HR PRN #20 tab.rapdis 02/08/19 Unknown Rx Allergies Allergy/AdvReac Type Severity Reaction Status Date / Time acetaminophen [From Tylenol] Allergy Itching Verified 11/09/18 02:15 aspirin Allergy Hives Verified 11/09/18 02:15 Heart Score - HEART Score History: Slightly suspicious EKG: Non-specific Age: < 45 Risk factors: 1-2 risk factors Troponin: < normal limit HEART Score: 2 - Critical Actions Critical Actions: 0-3 pts:0.9-1.7%risk of adverse cardiac event.Candidate for discharge ED Review of Systems ROS: Stated complaint: CHEST PAIN AND BACK PAIN Other details as noted in HPI ED Past Medical Hx - Past Medical History Previous Medical History?: Yes Hx Hypertension: Yes Hx CVA: Yes (TIAs, residiu. right side weakness) Hx Heart Attack/AMI: Yes (2 stents placed 2016) Hx Congestive Heart Failure: Yes Hx Diabetes: Yes Hx Deep Vein Thrombosis: Yes (R-leg) Hx Pulmonary Embolism: Yes Hx Asthma: Yes Additional medical history: Ulcers, a-fib. strong family hx of cardiac disorders - Surgical History Past Surgical History?: No Hx Coronary Stent: Yes (x2 2016) Additional Surgical History: Stent placement - Social History Smoking Status: Light Tobacco Smoker Substance Use Type: None - Medications Home Medications: Home Medications Medication Instructions Recorded Confirmed Last Taken Type Nitroglycerin [Nitrostat] 0.4 mg SL Q5M PRN 08/24/17 06/17/18 Unknown History carvediloL [Coreg] 12.5 mg PO BID #60 tablet 08/25/17 06/17/18 Unknown Rx Docusate Sodium [Colace CAP] 100 mg PO BID #30 capsule 05/13/18 06/17/18 Unknown Rx Nicotine [Habitrol] 21 mg TD DAILY #30 patch 06/18/18 Unknown Rx Pantoprazole [Protonix TAB] 40 mg PO BID #60 tablet 06/18/18 Unknown Rx bisacodyL [Dulcolax] 10 mg PO DAILY PRN #14 tab 06/18/18 Unknown Rx Docusate Sodium [Colace] 100 mg PO BID 30 Days #60 capsule 06/22/18 Unknown Rx Magnesium Citrate [Citrate of 300 ml PO ONCE 1 Days #1 bottle 06/22/18 Unknown Rx Magnesia] Sodium Phosphate,[place]-Dibasic 118 ml RC ONCE 1 Days #1 enema 06/22/18 Unknown Rx [Fleet Enema] bisacodyL [Dulcolax] 10 mg PO DAILY 1 Days #2 tab 06/22/18 Unknown Rx Menthol/Camphor [[place] 1 applicatio TP QID PRN #1 tube 08/17/18 Unknown Rx Ointment] Acetaminophen [Acetaminophen TAB] 500 mg PO Q6HR #20 tablet 08/31/18 Unknown Rx Ferrous Gluconate [Ferrous 324 mg PO TID #20 tablet 09/06/18 Unknown Rx Gluconate 324 MG] Lansoprazole [Prevacid] 30 mg PO DAILY #30 capsule.dr 09/06/18 Unknown Rx Prednisone [predniSONE 10 mg 10 mg PO .TAPER #1 tab.ds.pk 09/17/18 Unknown Rx (6-Day Pack, 21 Tabs)] levoFLOXacin [Levaquin TAB] 500 mg PO QDAY #7 tablet 09/17/18 Unknown Rx Menthol/Camphor [[place] 18 gm TP Q4H PRN #1 oint...g. 10/05/18 Unknown Rx Ointment] Famotidine [Pepcid] 20 mg PO BID #60 tablet 02/08/19 Unknown Rx Ondansetron [Zofran Odt] 4 mg PO Q8HR PRN #20 tab.rapdis 02/08/19 Unknown Rx ED Physical Exam - General Limitations: No Limitations General appearance: alert, in no apparent distress - Head Head exam: Present: atraumatic, normocephalic - Eye Eye exam: Present: normal appearance. Absent: scleral icterus - ENT ENT exam: Present: mucous membranes moist - Neck Neck exam: Present: normal inspection. Absent: tenderness, meningismus - Respiratory Respiratory exam: Present: normal lung sounds bilaterally. Absent: respiratory distress - Cardiovascular Cardiovascular Exam: Present: regular rate, normal rhythm. Absent: systolic murmur, diastolic murmur, rubs, gallop - GI/Abdominal GI/Abdominal exam: Present: soft, normal bowel sounds. Absent: distended, tenderness, guarding, rebound, rigid - Rectal Rectal exam: Present: deferred - Extremities Exam Extremities exam: Present: full ROM, pedal edema, other (calves are somewhat swollen but nontender). Absent: calf tenderness - Back Exam Back exam: Present: normal inspection - Neurological Exam Neurological exam: Present: alert, oriented X3, CN II-XII intact. Absent: motor sensory deficit - Psychiatric Psychiatric exam: Present: normal affect, normal mood - Skin Skin exam: Present: warm, dry, intact, normal color. Absent: rash ED Course Vital Signs 05/29/19 05/29/19 05/29/19 00:14 06:31 10:06 Temperature 98.6 F Pulse Rate 97 H 83 87 Respiratory 18 21 16 Rate Blood Pressure 146/85 Blood Pressure 113/68 144/85 [Left] O2 Sat by Pulse 97 98 99 Oximetry CRISPIN score - Crispin Score Age > 65: (0) No Aspirin use within the Past 7 Days: (0) No 3 or more CAD Risk Factors: (0) No 2 or more Angina events in past 24 hrs: (0) No Known CAD with more than 50% Stenosis: (0) No Elevated Cardiac Markers: (0) No ST Deviation Greater than 0.5mm: (0) No CRISPIN Score: 0 ED Medical Decision Making - Lab Data Result diagrams: 05/29/19 07:01 05/29/19 07:01 Laboratory Results - last 24 hr 05/29/19 05/29/19 05/29/19 07:01 07:01 07:01 WBC 3.6 L RBC 4.51 Hgb 9.6 L Hct 31.3 L MCV 70 L MCH 21 L MCHC 31 L RDW 19.9 H Plt Count 255 Rogers % (Auto) Door Glass Installer Add Manual Diff Complete Total Counted 100 Seg Neuts % (Manual) 52.0 Band Neutrophils % 0 Lymphocytes % (Manual) 30.0 Reactive Lymphs % (Man) 0 Monocytes % (Manual) 11.0 H Eosinophils % (Manual) 6.0 H Basophils % (Manual) 0 Metamyelocytes % 1.0 Myelocytes % 0 Promyelocytes % 0 Blast Cells % 0 Nucleated RBC % Not Reportable Seg Neutrophils # Man 1.9 Band Neutrophils # 0.0 Lymphocytes # (Manual) 1.1 L Abs React Lymphs (Man) 0.0 Monocytes # (Manual) 0.4 Eosinophils # (Manual) 0.2 Basophils # (Manual) 0.0 Metamyelocytes # 0.0 Myelocytes # 0.0 Promyelocytes # 0.0 Blast Cells # 0.0 WBC Morphology Not Reportable Hypersegmented Neuts Not Reportable Hyposegmented Neuts Not Reportable Hypogranular Neuts Not Reportable Smudge Cells Not Reportable Toxic Granulation Not Reportable Toxic Vacuolation Not Reportable Dohle Bodies Not Reportable Pelger-Huet Anomaly Not Reportable [place]air Rods Not Reportable Platelet Estimate Consistent w auto Clumped Platelets Not Reportable Plt Clumps, EDTA Not Reportable Large Platelets Not Reportable Giant Platelets Not Reportable Platelet Satelliting Not Reportable Plt Morphology Comment Not Reportable RBC Morphology Not Reportable Dimorphic RBCs Not Reportable Polychromasia Not Reportable Hypochromasia 2+ Poikilocytosis 2+ Anisocytosis 1+ Microcytosis 1+ Macrocytosis Not Reportable Spherocytes Not Reportable Pappenheimer Bodies Not Reportable Sickle Cells Not Reportable Target Cells Not Reportable Tear Drop Cells Few Ovalocytes 1+ Helmet Cells Not Reportable [place] Bodies Not Reportable [place] Rings Not Reportable [place] Cells Not Reportable Bite Cells Not Reportable Crenated Cell Not Reportable Elliptocytes 1+ Acanthocytes (Spur) Not Reportable Rouleaux Not Reportable Hemoglobin C Crystals Not Reportable Schistocytes Not Reportable Malaria parasites Not Reportable [place] Bodies Not Reportable Hem Pathologist Commnt No PT INR APTT D-Dimer Sodium 144 Potassium 3.9 Chloride 105.0 Carbon Dioxide 24 Anion Gap 19 BUN 11 Creatinine 1.2 Estimated GFR > 60 BUN/Creatinine Ratio 9 Glucose 108 H Calcium 8.9 Total Bilirubin Direct Bilirubin Indirect Bilirubin AST ALT Alkaline Phosphatase Total Creatine Kinase 628 H CK-MB (CK-2) 2.5 CK-MB (CK-2) Rel Index 0.3 Troponin T < 0.010 NT-Pro-B Natriuret Pep Total Protein Albumin Albumin/Globulin Ratio 05/29/19 05/29/19 07:01 07:01 WBC RBC Hgb Hct MCV MCH MCHC RDW Plt Count [place] % (Auto) Add Manual Diff Total Counted Seg Neuts % (Manual) Band Neutrophils % Lymphocytes % (Manual) Reactive Lymphs % (Man) Monocytes % (Manual) Eosinophils % (Manual) Basophils % (Manual) Metamyelocytes % Myelocytes % Promyelocytes % Blast Cells % Nucleated RBC % Seg Neutrophils # Man Band Neutrophils # Lymphocytes # (Manual) Abs React Lymphs (Man) Monocytes # (Manual) Eosinophils # (Manual) Basophils # (Manual) Metamyelocytes # Myelocytes # Promyelocytes # Blast Cells # WBC Morphology Hypersegmented Neuts Hyposegmented Neuts Hypogranular Neuts Smudge Cells Toxic Granulation Toxic Vacuolation Dohle Bodies Pelger-Huet Anomaly Clair Rods Platelet Estimate Clumped Platelets Plt Clumps, EDTA Large Platelets Giant Platelets Platelet Satelliting Plt Morphology Comment RBC Morphology Dimorphic RBCs Polychromasia Hypochromasia Poikilocytosis Anisocytosis Microcytosis Macrocytosis Spherocytes Pappenheimer Bodies Sickle Cells Target Cells Tear Drop Cells Ovalocytes Helmet Cells [place] Bodies [place] Rings Melo Cells Bite Cells Crenated Cell Elliptocytes Acanthocytes (Spur) Rouleaux Hemoglobin C Crystals Schistocytes Malaria parasites [place] Bodies Hem Pathologist Commnt PT 15.5 H INR 1.21 H APTT 26.6 D-Dimer 224.77 Sodium Potassium Chloride Carbon Dioxide Anion Gap BUN Creatinine Estimated GFR BUN/Creatinine Ratio Glucose Calcium Total Bilirubin 0.40 Direct Bilirubin < 0.2 Indirect Bilirubin 0.2 AST 22 ALT 21 Alkaline Phosphatase 87 Total Creatine Kinase CK-MB (CK-2) CK-MB (CK-2) Rel Index Troponin T NT-Pro-B Natriuret Pep 14.78 Total Protein 7.1 Albumin 3.9 Albumin/Globulin Ratio 1.2 - EKG Data -: EKG Interpreted by Me EKG shows normal: sinus rhythm, axis, intervals, QRS complexes Rate: normal - EKG Data Interpretation: nonspecific ST-T wave mellissa - Radiology Data Radiology results: report reviewed (chest x-ray Doppler no acute process) Critical care attestation.: If time is entered above; I have spent that time in minutes in the direct care of this critically ill patient, excluding procedure time. ED Disposition Clinical Impression: Atypical chest pain Disposition: DC-01 TO HOME OR SELFCARE Is pt being admited?: No Does the pt Need Aspirin: No Condition: Stable Instructions: Chest Pain (ED) Additional Instructions: Return any acute change or problem. Referrals: PRIMARY CARE,MD [Primary Care Provider] - 3-5 Days [facility] [Provider Group] - 2-3 Days
--- NOTE | 2019-05-29 06:40 | XRay Report ---
CHEST - 1 VIEW INDICATION: Chest Pain COMPARISON: 02/08/2019 FINDINGS: Support devices: None. Heart: Stable cardiomediastinal silhouette. Lungs/pleura: Clear lungs. Additional findings: None. IMPRESSION: Clear lungs. Signer Name: Sukhjinder Whitaker MD Signed: 05/29/2019 6:35 AM Workstation Name: [id number]
[2019-05-29 07:28] LABS: Hematocrit 31.3 % (35.5-45.6); Hemoglobin 9.6 gm/dl (11.8-15.2); Mean Corpuscular HGB Conc 31 % (32-34); Platelet Count 255 K/mm3 (140-440); Red Blood Count 4.51 M/mm3 (3.65-5.03); Red Cell Distribution Width 19.9 % (13.2-15.2)
[2019-05-29 07:34] LABS: Mean Corpuscular Volume 70 fl (84-94)
[2019-05-29 07:36] LABS: INR 1.21 (0.87-1.13)
[2019-05-29 07:37] LABS: Partial Thromboplastin Time 26.6 Sec. (24.2-36.6)
[2019-05-29 07:42] LABS: BUN/Creatinine Ratio 9; Blood Urea Nitrogen 11 mg/dL (9-20); Calcium 8.9 mg/dL (8.4-10.2); Hemolysis Index 0
[2019-05-29 07:44] LABS: Creatine Kinase MB 2.5 ng/mL (0.0-4.0)
[2019-05-29 07:46] LABS: Alanine Aminotransferase 21 units/L (7-56); Albumin 3.9 g/dL (3.9-5)
[2019-05-29 08:45] LABS: Bilirubin,Direct < 0.2 mg/dL (0-0.2)
--- NOTE | 2019-05-29 09:53 | Vascular Lab Report ---
DUPLEX DOPPLER LOWER EXTREMITY VEINS, BILATERAL INDICATION: leg swellling, h/o DVT. Bilateral lower extremity swelling for a few days TECHNIQUE: Duplex doppler imaging was performed through the veins of both lower extremities using ve nous compression and other maneuvers. COMPARISON: No relevant prior imaging study available. FINDINGS: Right Common femoral vein: Negative. Right Superficial femoral vein: Negative. Right Popliteal vein: Negative. Right Calf veins: Negative. Left Common femoral vein: Negative. Left Superficial femoral vein: Negative. Left Popliteal vein: Negative. Left Calf veins: Negative. Additional findings: None.. IMPRESSION: No sonographic evidence for DVT in either lower extremity. Signer Name: Franklin Cabrera Jr, MD Signed: 05/29/2019 9:49 AM Workstation Name: [id number]
[2019-05-29 11:00] LABS: Basophils % (Manual) 0 % (0.0-1.8); Total Cells Counted 100
[2019-05-29 11:01] LABS: Anisocytosis 1+; Hypochromasia 2+; Ovalocytes 1+; Platelet Estimate Consistent w Auto; Poikilocytosis 2+; Tear Drop Cells Few
[2019-05-29 11:53] VITALS: BP 134/79
== END 2019-05-29 11:53 | disposition home or self-care (01) ==
LOC: ED 00:09
DX: R07.89 Other chest pain (principal); I11.0 Hypertensive heart disease with heart failure; I50.9 Heart failure, unspecified; Z86.73 Personal history of transient ischemic attack (TIA), and cerebral infarction without residual deficits; E11.9 Type 2 diabetes mellitus without complications; I25.2 Old myocardial infarction; J45.909 Unspecified asthma, uncomplicated; Z98.890 Other specified postprocedural states
CPT/HCPCS: 36415; 71045; 80048; 80076; 82550; 82553; 83880; 84484; 85007; 85025; 85379; 85610; 85730; 93005; 93010; 93970

== ENCOUNTER 2019-06-10 00:01 | Emergency (ER) | payer MEDICAID ==
[2019-06-10 00:33] VITALS: BP 161/109
--- NOTE | 2019-06-10 01:28 | Emergency Department Report ---
{null, HPI - General Chief Complaint: Urogenital-Male Time Seen by Provider: 06/10/19 01:03 - HPI HPI: Room 39 The patient is a 38-year-old male present with a chief complaint of difficulty urinating/abdominal pain. The patient states he has pain in the left flank since yesterday. Patient states he feels as though he has to urinate but he cannot get his urine to come out. Patient states he strains and tries to push it out but only a small amount comes out. ED Past Medical Hx - Past Medical History Previous Medical History?: Yes Hx Hypertension: Yes Hx CVA: Yes (TIAs, residiu. right side weakness) Hx Heart Attack/AMI: Yes (2 stents placed 2016) Hx Congestive Heart Failure: Yes Hx Diabetes: Yes Hx Deep Vein Thrombosis: Yes (R-leg) Hx Pulmonary Embolism: Yes Hx Asthma: Yes Additional medical history: Ulcers, a-fib. strong family hx of cardiac disorders - Surgical History Past Surgical History?: Yes Hx Coronary Stent: Yes (x2 2016) Additional Surgical History: Stent placement - Family History Family history: no significant - Social History Smoking Status: Current Every Day Smoker Substance Use Type: None (Denies illicit drug use) - Medications Home Medications: Home Medications Medication Instructions Recorded Confirmed Last Taken Type Nitroglycerin [Nitrostat] 0.4 mg SL Q5M PRN 08/24/17 06/17/18 Unknown History carvediloL [Coreg] 12.5 mg PO BID #60 tablet 08/25/17 06/17/18 Unknown Rx Docusate Sodium [Colace CAP] 100 mg PO BID #30 capsule 05/13/18 06/17/18 Unknown Rx Nicotine [Habitrol] 21 mg TD DAILY #30 patch 06/18/18 Unknown Rx Pantoprazole [Protonix TAB] 40 mg PO BID #60 tablet 06/18/18 Unknown Rx bisacodyL [Dulcolax] 10 mg PO DAILY PRN #14 tab 06/18/18 Unknown Rx Docusate Sodium [Colace] 100 mg PO BID 30 Days #60 capsule 06/22/18 Unknown Rx Magnesium Citrate [Citrate of 300 ml PO ONCE 1 Days #1 bottle 06/22/18 Unknown Rx Magnesia] Sodium Phosphate,[place]ill-Dibasic 118 ml RC ONCE 1 Days #1 enema 06/22/18 Unknown Rx [Fleet Enema] bisacodyL [Dulcolax] 10 mg PO DAILY 1 Days #2 tab 06/22/18 Unknown Rx Menthol/Camphor [[place] 1 applicatio TP QID PRN #1 tube 08/17/18 Unknown Rx Ointment] Acetaminophen [Acetaminophen TAB] 500 mg PO Q6HR #20 tablet 08/31/18 Unknown Rx Ferrous Gluconate [Ferrous 324 mg PO TID #20 tablet 09/06/18 Unknown Rx Gluconate 324 MG] Lansoprazole [Prevacid] 30 mg PO DAILY #30 capsule.dr 09/06/18 Unknown Rx Prednisone [predniSONE 10 mg 10 mg PO .TAPER #1 tab.ds.pk 09/17/18 Unknown Rx (6-Day Pack, 21 Tabs)] levoFLOXacin [Levaquin TAB] 500 mg PO QDAY #7 tablet 09/17/18 Unknown Rx Menthol/Camphor [[place] 18 gm TP Q4H PRN #1 oint...g. 10/05/18 Unknown Rx Ointment] Famotidine [Pepcid] 20 mg PO BID #60 tablet 02/08/19 Unknown Rx Ondansetron [Zofran Odt] 4 mg PO Q8HR PRN #20 tab.rapdis 02/08/19 Unknown Rx Ciprofloxacin HCl [Ciprofloxacin 250 mg PO BID #14 tablet 06/10/19 Unknown Rx TAB] traMADoL [Ultram] 50 mg PO Q6HR PRN #14 tablet 06/10/19 Unknown Rx ED Review of Systems ROS: Stated complaint: UNABLE TO URINATE Other details as noted in HPI Constitutional: no symptoms reported Eyes: denies: eye pain ENT: denies: throat pain Respiratory: no symptoms reported Cardiovascular: denies: chest pain Endocrine: no symptoms reported Gastrointestinal: abdominal pain Genitourinary: other (Urinary retention) Musculoskeletal: back pain (Left flank pain) Neurological: denies: headache Physical Exam - Physical Exam Vital Signs: Vital Signs 06/10/19 00:31 Temperature 98.0 F Pulse Rate 99 H Respiratory 18 Rate Blood Pressure 161/109 O2 Sat by Pulse 100 Oximetry Physical Exam: GENERAL: The patient is well-developed well-nourished male lying on stretcher not appearing to be in acute distress. [] HEENT: Normocephalic. Atraumatic. Extraocular motions are intact. Patient has moist mucous membranes. NECK: Supple. Trachea midline CHEST/LUNGS: Clear to auscultation. There is no respiratory distress noted. HEART/CARDIOVASCULAR: Regular. There is no tachycardia. There is no gallop rub or murmur. ABDOMEN: Abdomen is soft, with diffuse discomfort to palpation greatest on the left side. Patient has normal bowel sounds. There is no abdominal distention. SKIN: There is no rash. There is no edema. There is no diaphoresis. NEURO: The patient is awake, alert, and oriented. The patient is cooperative. The patient has normal speech MUSCULOSKELETAL: There is no evidence of acute injury. GENITOURINARY: No evidence of scrotal cellulitis/Dejan's. No scrotal or perineal masses ED Course Vital Signs 06/10/19 00:31 Temperature 98.0 F Pulse Rate 99 H Respiratory 18 Rate Blood Pressure 161/109 O2 Sat by Pulse 100 Oximetry ED Medical Decision Making - Lab Data Result diagrams: 06/10/19 01:13 06/10/19 01:13 Laboratory Tests 06/10/19 06/10/19 06/10/19 01:13 01:13 Unknown WBC 3.8 L RBC 4.18 Hgb 9.2 L Hct 29.5 L MCV 71 L MCH 22 L MCHC 31 L RDW 21.1 H Plt Count 263 [place] % (Auto) Integration Project Manager Add Manual Diff Complete Total Counted 100 Seg Neuts % (Manual) 60.0 Band Neutrophils % 0 Lymphocytes % (Manual) 25.0 Reactive Lymphs % (Man) 0 Monocytes % (Manual) 14.0 H Eosinophils % (Manual) 1.0 Basophils % (Manual) 0 Metamyelocytes % 0 Myelocytes % 0 Promyelocytes % 0 Blast Cells % 0 Nucleated RBC % Not Reportable Seg Neutrophils # Man 2.3 Band Neutrophils # 0.0 Lymphocytes # (Manual) 1.0 L Abs React Lymphs (Man) 0.0 Monocytes # (Manual) 0.5 Eosinophils # (Manual) 0.0 Basophils # (Manual) 0.0 Metamyelocytes # 0.0 Myelocytes # 0.0 Promyelocytes # 0.0 Blast Cells # 0.0 WBC Morphology Not Reportable Hypersegmented Neuts Not Reportable Hyposegmented Neuts Not Reportable Hypogranular Neuts Not Reportable Smudge Cells Not Reportable Toxic Granulation Not Reportable Toxic Vacuolation Not Reportable Dohle Bodies Not Reportable Pelger-Huet Anomaly Not Reportable Clair Rods Not Reportable Platelet Estimate Consistent w auto Clumped Platelets Not Reportable Plt Clumps, EDTA Not Reportable Large Platelets Not Reportable Giant Platelets Not Reportable Platelet Satelliting Not Reportable Plt Morphology Comment Not Reportable RBC Morphology Not Reportable Dimorphic RBCs Not Reportable Polychromasia Not Reportable Hypochromasia 2+ Poikilocytosis Few Anisocytosis 1+ Microcytosis 1+ Macrocytosis Not Reportable Spherocytes Not Reportable Pappenheimer Bodies Not Reportable Sickle Cells Not Reportable Target Cells Not Reportable Tear Drop Cells Rare Ovalocytes 1+ Helmet Cells Not Reportable [place] Bodies Not Reportable [place] Rings Not Reportable [place] Cells Not Reportable Bite Cells Not Reportable Crenated Cell Not Reportable Elliptocytes 1+ Acanthocytes (Spur) Not Reportable Rouleaux Not Reportable Hemoglobin C Crystals Not Reportable Schistocytes Not Reportable Malaria parasites Not Reportable [place] Bodies Not Reportable Hem Pathologist Commnt No Sodium 144 Potassium 4.4 Chloride 106.6 Carbon Dioxide 25 Anion Gap 17 BUN 9 Creatinine 1.3 Estimated GFR > 60 BUN/Creatinine Ratio 7 Glucose 115 H Calcium 9.0 Total Bilirubin 0.20 AST 28 ALT 28 Alkaline Phosphatase 99 Total Protein 6.7 Albumin 4.2 Albumin/Globulin Ratio 1.7 Urine Color Yellow Urine Turbidity Clear Urine pH 5.0 Ur Specific [place] 1.025 Urine Protein <15 mg/dl Urine Glucose (UA) Negative Urine Ketones Negative Urine Blood Negative Urine Nitrite Negative Ur Reducing Substances Not Reportable Urine Bilirubin Negative Urine Ictotest Not Reportable Urine Urobilinogen < 2.0 Ur Leukocyte Esterase Negative Urine WBC (Auto) 1.0 Urine RBC (Auto) 2.0 U Epithel Cells (Auto) < 1.0 Urine Mucus Few - Radiology Data Radiology results: report reviewed (CT abdomen pelvis), image reviewed (CT abdomen pelvis) Findings [facility] [address] [place] [address] Cat Scan Report Signed Patient: DYAN SHEFFIELD JR MR#: [id number] : 1980 Acct:[id number] Age/Sex: 38 / M ADM Date: 06/10/19 Loc: ED Attending Dr: Ordering Physician: MARILEE HARRINGTON MD Date of Service: 06/10/19 Procedure(s): CT abdomen pelvis wo con Accession Number(s): [id number] cc: MARILEE HARRINGTON MD CT abdomen pelvis wo con INDICATION: left flank pain, unable to urinate. TECHNIQUE: All CT scans at this location are performed using the following dose modulation technique: Automated exposure control. Helical slices were obtained through the abdomen and pelvis. No contrast is administered COMPARISON: CT scan dated 02/08/2019 FINDINGS: Abdomen: No acute abnormality is seen in the lower chest. The liver, spleen, pancreas, adrenal glands, and kidneys show no acute abnormality. There is no hydronephrosis. There is mild nephrocalcinosis. There are no ureteral calculi. The appendix is unremarkable. Pelvis: There is no obstruction or inflammation. There are no abnormal fluid collections. There is no adenopathy. No mass lesions are seen. On review of bone windows, no acute osseous abnormalities are seen. IMPRESSION: 1. There is no obstruction, inflammation, or free air. There are no abnormal fluid collections. There is mild nephrocalcinosis in both kidneys. There are no calyceal stones. There is no hydronephrosis. There are no ureteral calculi. Signer Name: Dallin Boston MD Signed: 06/10/2019 1:53 AM Workstation Name: [id number] Transcribed By: Dictated By: Dallin Boston MD Electronically Authenticated By: Dallin nicholson MD Signed Date/Time: 06/10/19 0153 DD/ 0148 TD/TT: - Medical Decision Making Patient refuses Walker catheter - Differential Diagnosis Urinary retention, renal colic Critical care attestation.: If time is entered above; I have spent that time in minutes in the direct care of this critically ill patient, excluding procedure time. ED Disposition Clinical Impression: Groin pain, Left flank pain Disposition: - TO HOME OR SELFCARE Is pt being admited?: No Does the pt Need Aspirin: No Condition: Stable Prescriptions: Ciprofloxacin HCl [Ciprofloxacin TAB] 250 mg PO BID #14 tablet traMADoL [Ultram] 50 mg PO Q6HR PRN #14 tablet PRN Reason: Pain Referrals: HILDA CHILD MD [Staff Physician] - YULIYA (Dr. Child is a urologist. Please follow-up with him for further evaluate) Forms: Work/School Release Form(ED) }
[2019-06-10 01:46] LABS: Hematocrit 29.5 % (35.5-45.6); Hemoglobin 9.2 gm/dl (11.8-15.2); Mean Corpuscular HGB Conc 31 % (32-34); Mean Corpuscular Volume 71 fl (84-94); Platelet Count 263 K/mm3 (140-440); Red Blood Count 4.18 M/mm3 (3.65-5.03)
--- NOTE | 2019-06-10 01:57 | Cat Scan Report ---
{null, CT abdomen pelvis wo con INDICATION: left flank pain, unable to urinate. TECHNIQUE: All CT scans at this location are performed using the following dose modulation technique: Automated exposure control. Helical slices were obtained through the abdomen and pelvis. No contrast is adminis tered COMPARISON: CT scan dated 02/08/2019 FINDINGS: Abdomen: No acute abnormality is seen in the lower chest. The liver, spleen, pancreas, adrenal glands , and kidneys show no acute abnormality. There is no hydronephrosis. There is mild nephrocalcinosis. There are no ureteral calculi. The appendix is unremarkable. Pelvis: There is no obstruction or inflammation. There are no abnormal fluid collections. There is no adenopathy. No mass lesions are seen. On review of bone windows, no acute osseous abnormalities are seen. IMPRESSION: 1. There is no obstruction, inflammation, or free air. There are no abnormal fluid collections. There is mild nephrocalcinosis in both kidneys. There are no calyceal stones. There is no hydronephro sis. There are no ureteral calculi. Signer Name: Dallin Boston MD Signed: 06/10/2019 1:53 AM Workstation Name: [id number] }
[2019-06-10 01:59] LABS: Red Cell Distribution Width 21.1 % (13.2-15.2)
[2019-06-10] MEDS ORDERED: MORPHINE 4 MG/1 ML INJ IM ONE (02:02)
[2019-06-10] MEDS ORDERED: ONDANSETRON 4 MG/2 ML INJ IM ONE (02:02)
[2019-06-10 02:06] LABS: Mucus,Urine FEW /HPF
[2019-06-10 02:12] LABS: Alanine Aminotransferase 28 units/L (7-56); Albumin 4.2 g/dL (3.9-5); BUN/Creatinine Ratio 7; Blood Urea Nitrogen 9 mg/dL (9-20); Hemolysis Index 8
[2019-06-10 02:26] LABS: Bilirubin,Urine Negative (Negative); Color,Urine Yellow (Yellow)
[2019-06-10 02:27] LABS: Blood,Urine Negative (Negative); Protein,Urine <15 mg/dL mg/dL (Negative)
[2019-06-10 02:28] LABS: Urobilinogen,Urine < 2.0 mg/dL (<2.0)
[2019-06-10 03:40] LABS: Basophils % (Manual) 0 % (0.0-1.8); Total Cells Counted 100
[2019-06-10 03:41] LABS: Anisocytosis 1+; Hypochromasia 2+; Tear Drop Cells Rare
[2019-06-10 03:42] LABS: Ovalocytes 1+; Platelet Estimate Consistent w Auto; Poikilocytosis Few
--- NOTE | 2019-06-10 03:47 | Ultrasound Report ---
{null, Testicular ultrasound INDICATION: Groin pain FINDINGS: Only one testicle is identified in the scrotum. This testicle measures 3.5 cm in length and shows normal arterial flow without focal lesion. There is a tiny epididymal cyst. The second testicl e is not identified. On this ultrasound this appears to be the right testicle. I reviewed the patient's CT scan performed earlier today and there is a small soft tissue structure i n the right inguinal canal which was thought to be a small amount of fluid associated with some minim al hernia. This appearance is unchanged when compared to prior CT exams. It is possible that this rep resents a small atrophic undescended testis in the right inguinal canal. IMPRESSION: I believe the testicle seen on this exam is the left testicle and it is unremarkable. I suspect that there is an undescended testis in the right inguinal canal. Signer Name: Dallin Boston MD Signed: 06/10/2019 3:43 AM Workstation Name: [id number] }
== END 2019-06-10 05:12 | disposition home or self-care (01) ==
LOC: ED 00:01
DX: R10.32 Left lower quadrant pain (principal); I11.0 Hypertensive heart disease with heart failure; I50.9 Heart failure, unspecified; I25.2 Old myocardial infarction; E11.9 Type 2 diabetes mellitus without complications; J45.909 Unspecified asthma, uncomplicated; I48.91 Unspecified atrial fibrillation; F17.200 Nicotine dependence, unspecified, uncomplicated; Z86.73 Personal history of transient ischemic attack (TIA), and cerebral infarction without residual deficits; Z95.5 Presence of coronary angioplasty implant and graft; Z79.899 Other long term (current) drug therapy; Z88.6 Allergy status to analgesic agent
CPT/HCPCS: 36415; 74176; 80053; 81001; 85007; 85025; 93975; 99284; J2270; J2405

== ENCOUNTER 2019-06-25 23:06 | Emergency (ER) | payer MEDICAID ==
[2019-06-26] LABS: Hematocrit 28.2 % (35.5-45.6); Hemoglobin 8.6 gm/dl (11.8-15.2); Mean Corpuscular HGB Conc 31 % (32-34); Mean Corpuscular Volume 71 fl (84-94); Platelet Count 223 K/mm3 (140-440); Red Blood Count 3.97 M/mm3 (3.65-5.03)
--- NOTE | 2019-06-26 00:01 | XRay Report ---
CHEST 1 VIEW INDICATION / CLINICAL INFORMATION: Chest Pain. COMPARISON: 05/29/2019 FINDINGS: SUPPORT DEVICES: None. HEART / MEDIASTINUM: No significant abnormality. LUNGS / PLEURA: No significant pulmonary or pleural abnormality. No pneumothorax. ADDITIONAL FINDINGS: No significant additional findings. IMPRESSION: 1. No significant change Signer Name: Levi Cueto MD Signed: 06/25/2019 11:56 PM Workstation Name: [id number]
[2019-06-26 00:11] LABS: Red Cell Distribution Width 20.7 % (13.2-15.2)
[2019-06-26 00:20] LABS: BUN/Creatinine Ratio 12; Blood Urea Nitrogen 15 mg/dL (9-20); Calcium 8.9 mg/dL (8.4-10.2); Hemolysis Index 0
[2019-06-26] MEDS ORDERED: MORPHINE 4 MG/1 ML INJ IM ONE (00:27)
--- NOTE | 2019-06-26 00:27 | Emergency Department Report ---
ED Chest Pain HPI - General Chief Complaint: Chest Pain Stated Complaint: CHEST PAIN Time Seen by Provider: 06/25/19 23:46 Source: EMS Mode of arrival: Ambulatory Limitations: No Limitations - History of Present Illness Initial Comments: This is a 38-year-old -Malaysian male, who is well known to both myself and this facility, who presents to the emergency department with complaint of some left-sided chest tightness that started about 3 or 4 hours prior to presentation. He says it is associated with some shortness of breath but denies any fever, nausea, vomiting, back pain or diaphoresis. He has not taken anything for symptoms prior to presentation. Patient has a past medical history of asthma, CHF, TIA, DVT, diabetes, coronary artery disease, hypertension and paroxysmal A. fib. The patient is on both Coumadin and Plavix. He follows with [facility] and says that he has a primary care physician but cannot currently remember the name. He is a tobacco smoker but denies any illicit drug use. The patient was here about 1 month ago for some abdominal and chest pain. He was seen by [facility] at that time and cleared from a cardiac standpoint. He was also seen by [facility] and had a scope and was found to have some gastritis. - Related Data Home Medications Medication Instructions Recorded Confirmed Last Taken Nitroglycerin [Nitrostat] 0.4 mg SL Q5M PRN 08/24/17 06/17/18 Unknown Previous Rx's Medication Instructions Recorded Last Taken Type carvediloL [Coreg] 12.5 mg PO BID #60 tablet 08/25/17 Unknown Rx Docusate Sodium [Colace CAP] 100 mg PO BID #30 capsule 05/13/18 Unknown Rx Nicotine [Habitrol] 21 mg TD DAILY #30 patch 06/18/18 Unknown Rx Pantoprazole [Protonix TAB] 40 mg PO BID #60 tablet 06/18/18 Unknown Rx bisacodyL [Dulcolax] 10 mg PO DAILY PRN #14 tab 06/18/18 Unknown Rx Docusate Sodium [Colace] 100 mg PO BID 30 Days #60 capsule 06/22/18 Unknown Rx Magnesium Citrate [Citrate of 300 ml PO ONCE 1 Days #1 bottle 06/22/18 Unknown Rx Magnesia] Sodium Phosphate,[place]-Dibasic 118 ml RC ONCE 1 Days #1 enema 06/22/18 Unknown Rx [Fleet Enema] bisacodyL [Dulcolax] 10 mg PO DAILY 1 Days #2 tab 06/22/18 Unknown Rx Menthol/Camphor [[place] 1 applicatio TP QID PRN #1 tube 08/17/18 Unknown Rx Ointment] Acetaminophen [Acetaminophen TAB] 500 mg PO Q6HR #20 tablet 08/31/18 Unknown Rx Ferrous Gluconate [Ferrous 324 mg PO TID #20 tablet 09/06/18 Unknown Rx Gluconate 324 MG] Lansoprazole [Prevacid] 30 mg PO DAILY #30 capsule.dr 09/06/18 Unknown Rx Prednisone [predniSONE 10 mg 10 mg PO .TAPER #1 tab.ds.pk 09/17/18 Unknown Rx (6-Day Pack, 21 Tabs)] levoFLOXacin [Levaquin TAB] 500 mg PO QDAY #7 tablet 09/17/18 Unknown Rx Menthol/Camphor [[place] 18 gm TP Q4H PRN #1 oint...g. 10/05/18 Unknown Rx Ointment] Famotidine [Pepcid] 20 mg PO BID #60 tablet 02/08/19 Unknown Rx Ondansetron [Zofran Odt] 4 mg PO Q8HR PRN #20 tab.rapdis 02/08/19 Unknown Rx Ciprofloxacin HCl [Ciprofloxacin 250 mg PO BID #14 tablet 06/10/19 Unknown Rx TAB] traMADoL [Ultram] 50 mg PO Q6HR PRN #14 tablet 06/10/19 Unknown Rx Allergies Allergy/AdvReac Type Severity Reaction Status Date / Time acetaminophen [From Tylenol] Allergy Itching Verified 11/09/18 02:15 aspirin Allergy Hives Verified 11/09/18 02:15 Heart Score - HEART Score History: Slightly suspicious EKG: Normal Age: < 45 Risk factors: > 3 risk factors or hx of atherosclerotic disease Troponin: < normal limit HEART Score: 2 - Critical Actions Critical Actions: 0-3 pts:0.9-1.7%risk of adverse cardiac event.Candidate for discharge ED Review of Systems ROS: Stated complaint: CHEST PAIN Other details as noted in HPI Comment: All other systems reviewed and negative Constitutional: denies: chills, fever Eyes: denies: eye pain, vision change ENT: denies: ear pain, throat pain Respiratory: shortness of breath. denies: cough Cardiovascular: chest pain. denies: palpitations Gastrointestinal: denies: abdominal pain, vomiting Genitourinary: denies: dysuria, discharge Musculoskeletal: denies: back pain, arthralgia Skin: denies: rash, lesions Neurological: denies: headache, weakness ED Past Medical Hx - Past Medical History Previous Medical History?: Yes Hx Hypertension: Yes Hx CVA: Yes (TIAs, residiu. right side weakness) Hx Heart Attack/AMI: Yes (2 stents placed 2016) Hx Congestive Heart Failure: Yes Hx Diabetes: Yes Hx Deep Vein Thrombosis: Yes (R-leg) Hx Pulmonary Embolism: Yes Hx Asthma: Yes Additional medical history: Ulcers, a-fib. strong family hx of cardiac disorders - Surgical History Past Surgical History?: Yes Hx Coronary Stent: Yes (x2 2017) Additional Surgical History: Stent placement - Social History Smoking Status: Current Every Day Smoker - Medications Home Medications: Home Medications Medication Instructions Recorded Confirmed Last Taken Type Nitroglycerin [Nitrostat] 0.4 mg SL Q5M PRN 08/24/17 06/17/18 Unknown History carvediloL [Coreg] 12.5 mg PO BID #60 tablet 08/25/17 06/17/18 Unknown Rx Docusate Sodium [Colace CAP] 100 mg PO BID #30 capsule 05/13/18 06/17/18 Unknown Rx Nicotine [Habitrol] 21 mg TD DAILY #30 patch 06/18/18 Unknown Rx Pantoprazole [Protonix TAB] 40 mg PO BID #60 tablet 06/18/18 Unknown Rx bisacodyL [Dulcolax] 10 mg PO DAILY PRN #14 tab 06/18/18 Unknown Rx Docusate Sodium [Colace] 100 mg PO BID 30 Days #60 capsule 06/22/18 Unknown Rx Magnesium Citrate [Citrate of 300 ml PO ONCE 1 Days #1 bottle 06/22/18 Unknown Rx Magnesia] Sodium Phosphate,[place]-Dibasic 118 ml RC ONCE 1 Days #1 enema 06/22/18 Unknown Rx [Fleet Enema] bisacodyL [Dulcolax] 10 mg PO DAILY 1 Days #2 tab 06/22/18 Unknown Rx Menthol/Camphor [[place] 1 applicatio TP QID PRN #1 tube 08/17/18 Unknown Rx Ointment] Acetaminophen [Acetaminophen TAB] 500 mg PO Q6HR #20 tablet 08/31/18 Unknown Rx Ferrous Gluconate [Ferrous 324 mg PO TID #20 tablet 09/06/18 Unknown Rx Gluconate 324 MG] Lansoprazole [Prevacid] 30 mg PO DAILY #30 capsule. 09/06/18 Unknown Rx Prednisone [predniSONE 10 mg 10 mg PO .TAPER #1 tab.ds.pk 09/17/18 Unknown Rx (6-Day Pack, 21 Tabs)] levoFLOXacin [Levaquin TAB] 500 mg PO QDAY #7 tablet 09/17/18 Unknown Rx Menthol/Camphor [[place] 18 gm TP Q4H PRN #1 oint...g. 10/05/18 Unknown Rx Ointment] Famotidine [Pepcid] 20 mg PO BID #60 tablet 02/08/19 Unknown Rx Ondansetron [Zofran Odt] 4 mg PO Q8HR PRN #20 tab.rapdis 02/08/19 Unknown Rx Ciprofloxacin HCl [Ciprofloxacin 250 mg PO BID #14 tablet 06/10/19 Unknown Rx TAB] traMADoL [Ultram] 50 mg PO Q6HR PRN #14 tablet 06/10/19 Unknown Rx ED Physical Exam - General Limitations: No Limitations - Other Other exam information: GENERAL: The patient is well-developed well-nourished. HENT: Normocephalic. Atraumatic. Patient has moist mucous membranes. EYES: Extraocular motions are intact. NECK: Supple. Trachea is midline. CHEST/LUNGS: Clear to auscultation. There is no respiratory distress noted. HEART/CARDIOVASCULAR: Regular. There is no tachycardia. There is no murmur. ABDOMEN: Abdomen is soft, nontender. Patient has normal bowel sounds. SKIN: Skin is warm and dry. NEURO: The patient is awake, alert, and oriented. The patient is cooperative. The patient has no focal neurologic deficits. Normal speech. MUSCULOSKELETAL: There is no tenderness or deformity. There is no evidence of acute injury. ED Course Vital Signs 06/25/19 06/26/19 06/26/19 23:09 01:29 01:30 Temperature 97.8 F Pulse Rate 100 H 90 Respiratory 18 18 18 Rate Blood Pressure 165/86 Blood Pressure 121/48 [Left] O2 Sat by Pulse 96 97 98 Oximetry 06/26/19 05:08 Temperature Pulse Rate 82 Respiratory 15 Rate Blood Pressure Blood Pressure 121/79 [Left] O2 Sat by Pulse 97 Oximetry KIANNA score - Kianna Score Age > 65: (0) No Aspirin use within the Past 7 Days: (0) No 3 or more CAD Risk Factors: (1) Yes 2 or more Angina events in past 24 hrs: (0) No Known CAD with more than 50% Stenosis: (0) No Elevated Cardiac Markers: (0) No ST Deviation Greater than 0.5mm: (0) No KIANNA Score: 1 ED Medical Decision Making - Lab Data Result diagrams: 06/25/19 23:19 06/25/19 23:19 - EKG Data -: EKG Interpreted by Me EKG shows normal: sinus rhythm, axis, intervals, QRS complexes, ST-T waves Rate: normal - EKG Data When compared to previous EKG there are: no significant change Interpretation: unchanged when compared t (05/29/19) - Radiology Data Radiology results: report reviewed, image reviewed interpreted by me: Chest x-ray does not show any acute process. There are no pleural effusions, obvious pneumonia and there is no pneumothorax. CT angiography of the chest with 2-D reconstructions INDICATION: Left-sided chest pain comparison: 02/08/2019 Thin section axial images were obtained as well as 2-D reformatted MIP images in all 3 planes FINDINGS: There is no hilar or mediastinal adenopathy. No pleural or pericardial effusion. Lung windows show no nodules, masses or infiltrates. There is no thoracic aortic aneurysm or dissection present. Routine axial images as well as 2-D reconstructions through the pulmonary arteries show no evidence of emboli. IMPRESSION: Negative chest CTA - Medical Decision Making This patient presents to the emergency department with the complaint of some midsternal to left-sided chest pain that started a few hours prior to presentation. EKG does not show any signs of ST elevation MA and is unchanged from previous. Chest x-ray does not show any pneumonia, pleural effusions, pneumothorax, focal consolidation, or any other acute process. The patient's labs have been mostly unremarkable including negative troponins x3 but he did have a slightly elevated and equivocal d-dimer level. For this reason a CT angiography of the chest was done that did not result finding any pulmonary embolism, dissection, or any other acute process. The patient was given a single dose of pain medication for analgesia and had a significant improvement, if not resolution, of his symptoms. Pertinent [address] Gong: There is no history of coronary disease. In fact, he had a cardiac cath at [facility] December 2013, that reports normal coronaries, EF 65%. He is on clopidogrel for primary prevention of cardiovascular disease as he has an allergy to aspirin. He has had multiple negative stress thalliums over the past 2 years with his latest done at this hospital June 2017 that documents no ischemia. The patient also has a self-reported history of a negative cardiac work-up in [facility] at the beginning of this year. His vital signs have been stable throughout his ED course. He is low on the heart and KIANNA score. 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 He will return to the emergency department with any worsening of his symptoms or any acute distress. - Differential Diagnosis MA, PE, costochondritis, GERD Critical Care Time: No Critical care attestation.: If time is entered above; I have spent that time in minutes in the direct care of this critically ill patient, excluding procedure time. ED Disposition Clinical Impression: Atypical chest pain Disposition: -01 TO HOME OR SELFCARE Is pt being admited?: No Condition: Stable Instructions: Chest Pain (ED) Additional Instructions: Please follow-up with your primary care physician and payroll specialist in the next few days. Return to the emergency department immediately with any worsening of your symptoms or with any acute distress. Referrals: CITLALI RUBI MD [Primary Care Provider] - 2-3 Days LLUVIA GONG MD [Staff Physician] - 2-3 Days Time of Disposition: 05:01
[2019-06-26 01:25] LABS: Basophils % (Manual) 0 % (0.0-1.8); Total Cells Counted 100
[2019-06-26 01:27] LABS: Hypochromasia 2+; Poikilocytosis Few; Target Cells Rare
[2019-06-26 01:28] LABS: Anisocytosis 1+; Ovalocytes Few; Platelet Estimate Consistent w Auto; Schistocytes Few
[2019-06-26 01:32] LABS: INR 1.18 (0.87-1.13); Partial Thromboplastin Time 25.1 Sec. (24.2-36.6)
--- NOTE | 2019-06-26 03:15 | Cat Scan Report ---
CT angiography of the chest with 2-D reconstructions INDICATION: Left-sided chest pain comparison: 02/08/2019 Thin section axial images were obtained as well as 2-D reformatted MIP images in all 3 planes FINDINGS: There is no hilar or mediastinal adenopathy. No pleural or pericardial effusion. Lung windo ws show no nodules, masses or infiltrates. There is no thoracic aortic aneurysm or dissection present . Routine axial images as well as 2-D reconstructions through the pulmonary arteries show no evidence of emboli. IMPRESSION: Negative chest CTA Automated exposure control was utilized to diminish radiation dose. Signer Name: Levi Cueto MD Signed: 06/26/2019 3:11 AM Workstation Name: [id number]
[2019-06-26 05:09] VITALS: BP 121/79
== END 2019-06-26 05:10 | disposition home or self-care (01) ==
LOC: ED 23:06
DX: R07.89 Other chest pain (principal); J45.909 Unspecified asthma, uncomplicated; I11.0 Hypertensive heart disease with heart failure; I50.9 Heart failure, unspecified; E11.9 Type 2 diabetes mellitus without complications; I25.10 Atherosclerotic heart disease of native coronary artery without angina pectoris; I48.0 Paroxysmal atrial fibrillation; F17.200 Nicotine dependence, unspecified, uncomplicated; Z79.01 Long term (current) use of anticoagulants; Z88.6 Allergy status to analgesic agent; Z86.73 Personal history of transient ischemic attack (TIA), and cerebral infarction without residual deficits; Z88.8 Allergy status to other drugs, medicaments and biological substances; Z79.899 Other long term (current) drug therapy; Z95.5 Presence of coronary angioplasty implant and graft
CPT/HCPCS: 36415; 71045; 71275; 80048; 84484; 85007; 85025; 85379; 85610; 85730; 93005; 93010; 96372; 99285; J2270; Q9967

== ENCOUNTER 2019-10-08 22:39 | Emergency (ER) | payer MEDICAID ==
--- NOTE | 2019-10-09 00:30 | Emergency Department Report ---
ED Neuro Deficit HPI - General Chief Complaint: Neuro Symptoms/Deficit Stated Complaint: RT SIDE WEAKNESS Time Seen by Provider: 10/09/19 00:14 Source: patient Mode of arrival: Ambulatory Limitations: No Limitations - History of Present Illness Initial Comments: [employer] Date of Service: 10/09/2019 00:00:31 Impression: Rule Out Acute Ischemic Stroke Comments/Sign-Out: the patient is a vasculopath, however he's had multiple prior hospitalizations with multiple negative MRIs of the brain for the same symptoms.he is had a psychiatry evaluation for the symptoms with feelings that he is either a conversion disorder patient or malingering. His exam is inconsistent and the patient was able to walk himself into the hospital but [place] he can't move his right leg. Looks like this is very similar to what is happening on prior occasions. His CT of the head is very reassuring. Again with multiple negative MRIs for the same symptoms in the past.The patient needs a repeat stroke workup has he's had repeated what looks like on a yearly basis for the same symptoms. If the CT of the head official reading did not show any acute changes he can likely stay on full anticoagulation with Coumadin or Plavix if he needs ongoing therapy for right leg weakness whether it be conversion disorder or not back to be arranged. Patient would benefit from cognitive behavioral therapy as an outpatient. Mechanism of Stroke: Not Clear Metrics: Last Known Well: 10/08/2019 12:00:00 [employer] Notification Time: 10/08/2019 23:59:07 Arrival Time: 10/08/2019 22:39:00 Stamp Time: 10/09/2019 00:00:31 Time First Login Attempt: 10/09/2019 00:03:55 Video Start Time: 10/09/2019 00:03:55 Symptoms: right sided weakness/numbness NIHSS Start Assessment Time: 10/09/2019 00:04:45 Patient is not a candidate for tPA. Patient was not deemed candidate for tPA thrombolytics because of Last Well Known Above 4.5 Hours. Video End Time: 10/09/2019 00:18:18 CT head showed no acute hemorrhage or acute core infarct. Clinical Presentation is not Suggestive of Large Vessel Occlusive Disease Radiologist was not called back for review of advanced imaging because na ED Physician notified of diagnostic impression and management plan on 10/09/2019 00:20:09 Our recommendations are outlined below. Recommendations: the patient has a functional neurologic examination which is inconsistent. He's had multiple presentations with extremely thorough workups for the same constellation of symptoms. His CT of the head without contrast is unremarkable. Discussed in detail the emergency department staff that since this episode is not different than prior episodes would not recommend a completely new stroke workup which then repeated multiple times and has been negative. The patient is a vasculopath however has been felt to be malingering/conversion disorder in the past and current exam is consistent with that as well with significant inconsistencies on examination. Sign Out: Discussed with Emergency Department Provider History of Present Illness: Patient is a 38 year old Male. Patient was brought by private transportation with symptoms of right sided weakness/numbness He says he got right sided weakness. he has a history of hypertension diabetes TIAs coronary artery disease atrial fibrillation DVT and PE. He says he takes Plavix and Coumadin. Today around noon he began noticing worsening right-sided weakness in his right lower extremity.no pain in the right leg. He says he had a prior stroke in the past but he made a full recovery. When his symptoms did not improve throughout the course of the day he sought treatment. Examination: 1A: Level of Consciousness - Alert; keenly responsive + 0 1B: Ask Month and Age - Both Questions Right + 0 1C: Blink Eyes & Squeeze Hands - Performs Both Tasks + 0 2: Test Horizontal Extraocular Movements - Normal + 0 3: Test Visual Evangelista - No Visual Loss + 0 4: Test Facial Palsy (Use Grimace if Obtunded) - Normal symmetry + 0 5A: Test Left Arm Motor Drift - No Drift for 10 Seconds + 0 5B: Test Right Arm Motor Drift - No Drift for 10 Seconds + 0 6A: Test Left Leg Motor Drift - No Drift for 5 Seconds + 0 6B: Test Right Leg Motor Drift - No Effort Against Bitely + 3 7: Test Limb Ataxia (FNF/Heel-Clark) - No Ataxia + 0 8: Test Sensation - Normal; No sensory loss + 0 9: Test Language/Aphasia - Normal; No aphasia + 0 10: Test Dysarthria - Normal + 0 11: Test Extinction/Inattention - No abnormality + 0 NIHSS Score: 3 Patient/Family was informed the Neurology Consult would happen via TeleHealth consult by way of interactive audio and video telecommunications and consented to receiving care in this manner. Due to the immediate potential for life-threatening deterioration due to underlying acute neurologic illness, I spent 35 minutes providing critical care. This time includes time for face to face visit via telemedicine, review of medical records, imaging studies and discussion of findings with providers, the patient and/or family. Dr Juanita Vargas [employer] - Related Data Home Medications: Home Medications Medication Instructions Recorded Confirmed Last Taken Nitroglycerin [Nitrostat] 0.4 mg SL Q5M PRN 08/24/17 06/17/18 Unknown Previous Rx's Medication Instructions Recorded Last Taken Type carvediloL [Coreg] 12.5 mg PO BID #60 tablet 08/25/17 Unknown Rx Docusate Sodium [Colace CAP] 100 mg PO BID #30 capsule 05/13/18 Unknown Rx Nicotine [Habitrol] 21 mg TD DAILY #30 patch 06/18/18 Unknown Rx Pantoprazole [Protonix TAB] 40 mg PO BID #60 tablet 06/18/18 Unknown Rx bisacodyL [Dulcolax] 10 mg PO DAILY PRN #14 tab 06/18/18 Unknown Rx Docusate Sodium [Colace] 100 mg PO BID 30 Days #60 capsule 06/22/18 Unknown Rx Magnesium Citrate [Citrate of 300 ml PO ONCE 1 Days #1 bottle 06/22/18 Unknown Rx Magnesia] Sodium Phosphate,[place]-Dibasic 118 ml RC ONCE 1 Days #1 enema 06/22/18 Unknown Rx [Fleet Enema] bisacodyL [Dulcolax] 10 mg PO DAILY 1 Days #2 tab 06/22/18 Unknown Rx Menthol/Camphor [[place] 1 applicatio TP QID PRN #1 tube 08/17/18 Unknown Rx Ointment] Acetaminophen [Acetaminophen TAB] 500 mg PO Q6HR #20 tablet 08/31/18 Unknown Rx Ferrous Gluconate [Ferrous 324 mg PO TID #20 tablet 09/06/18 Unknown Rx Gluconate 324 MG] Lansoprazole [Prevacid] 30 mg PO DAILY #30 capsule. 09/06/18 Unknown Rx Prednisone [predniSONE 10 mg 10 mg PO .TAPER #1 tab.ds.pk 09/17/18 Unknown Rx (6-Day Pack, 21 Tabs)] levoFLOXacin [Levaquin TAB] 500 mg PO QDAY #7 tablet 09/17/18 Unknown Rx Menthol/Camphor [[place] 18 gm TP Q4H PRN #1 oint...g. 10/05/18 Unknown Rx Ointment] Famotidine [Pepcid] 20 mg PO BID #60 tablet 02/08/19 Unknown Rx Ondansetron [Zofran Odt] 4 mg PO Q8HR PRN #20 tab.rapdis 02/08/19 Unknown Rx Ciprofloxacin HCl [Ciprofloxacin 250 mg PO BID #14 tablet 06/10/19 Unknown Rx TAB] traMADoL [Ultram] 50 mg PO Q6HR PRN #14 tablet 06/10/19 Unknown Rx Benzonatate [Tessalon Perles] 100 mg PO Q8HR PRN #20 capsule 07/19/19 Unknown Rx Ondansetron [Zofran Odt] 4 mg PO Q8HR PRN #15 tab.rapdis 07/19/19 Unknown Rx Allergies/Adverse Reactions: Allergies Allergy/AdvReac Type Severity Reaction Status Date / Time acetaminophen [From Tylenol] Allergy Itching Verified 11/09/18 02:15 aspirin Allergy Hives Verified 11/09/18 02:15 ED Review of Systems ROS: Stated complaint: RT SIDE WEAKNESS Other details as noted in HPI ED Past Medical Hx - Past Medical History Previous Medical History?: Yes Hx Hypertension: Yes Hx CVA: Yes (TIAs, residiu. right side weakness) Hx Heart Attack/AMI: Yes (2 stents placed 2016) Hx Congestive Heart Failure: Yes Hx Diabetes: Yes Hx Deep Vein Thrombosis: Yes (R-leg) Hx Pulmonary Embolism: Yes Hx Asthma: Yes Additional medical history: Ulcers, a-fib. strong family hx of cardiac disorders - Surgical History Hx Coronary Stent: Yes (x2 2017) Additional Surgical History: Stent placement - Social History Smoking Status: Current Every Day Smoker Substance Use Type: None - Medications Home Medications: Home Medications Medication Instructions Recorded Confirmed Last Taken Type Nitroglycerin [Nitrostat] 0.4 mg SL Q5M PRN 08/24/17 06/17/18 Unknown History carvediloL [Coreg] 12.5 mg PO BID #60 tablet 08/25/17 06/17/18 Unknown Rx Docusate Sodium [Colace CAP] 100 mg PO BID #30 capsule 05/13/18 06/17/18 Unknown Rx Nicotine [Habitrol] 21 mg TD DAILY #30 patch 06/18/18 Unknown Rx Pantoprazole [Protonix TAB] 40 mg PO BID #60 tablet 06/18/18 Unknown Rx bisacodyL [Dulcolax] 10 mg PO DAILY PRN #14 tab 06/18/18 Unknown Rx Docusate Sodium [Colace] 100 mg PO BID 30 Days #60 capsule 06/22/18 Unknown Rx Magnesium Citrate [Citrate of 300 ml PO ONCE 1 Days #1 bottle 06/22/18 Unknown Rx Magnesia] Sodium Phosphate,[place]-Dibasic 118 ml RC ONCE 1 Days #1 enema 06/22/18 Unknown Rx [Fleet Enema] bisacodyL [Dulcolax] 10 mg PO DAILY 1 Days #2 tab 06/22/18 Unknown Rx Menthol/Camphor [[place] 1 applicatio TP QID PRN #1 tube 08/17/18 Unknown Rx Ointment] Acetaminophen [Acetaminophen TAB] 500 mg PO Q6HR #20 tablet 08/31/18 Unknown Rx Ferrous Gluconate [[place]errous 324 mg PO TID #20 tablet 09/06/18 Unknown Rx Gluconate 324 MG] Lansoprazole [Prevacid] 30 mg PO DAILY #30 capsule. 09/06/18 Unknown Rx Prednisone [predniSONE 10 mg 10 mg PO .TAPER #1 tab.ds.pk 09/17/18 Unknown Rx (6-Day Pack, 21 Tabs)] levoFLOXacin [Levaquin TAB] 500 mg PO QDAY #7 tablet 09/17/18 Unknown Rx Menthol/Camphor [[place] 18 gm TP Q4H PRN #1 oint...g. 10/05/18 Unknown Rx Ointment] Famotidine [Pepcid] 20 mg PO BID #60 tablet 02/08/19 Unknown Rx Ondansetron [Zofran Odt] 4 mg PO Q8HR PRN #20 tab.rapdis 02/08/19 Unknown Rx Ciprofloxacin HCl [Ciprofloxacin 250 mg PO BID #14 tablet 06/10/19 Unknown Rx TAB] traMADoL [Ultram] 50 mg PO Q6HR PRN #14 tablet 06/10/19 Unknown Rx Benzonatate [Tessalon Perles] 100 mg PO Q8HR PRN #20 capsule 07/19/19 Unknown Rx Ondansetron [Zofran Odt] 4 mg PO Q8HR PRN #15 tab.rapdis 07/19/19 Unknown Rx ED Neuro Physical Exam - General Limitations: No Limitations Suspected Stroke: No Critical care attestation.: If time is entered above; I have spent that time in minutes in the direct care of this critically ill patient, excluding procedure time. ED Disposition Clinical Impression: Leg weakness Qualifiers: Laterality: right Qualified Code(s): R29.898 - Other symptoms and signs involving the musculoskeletal system Disposition: DC-01 TO HOME OR SELFCARE Is pt being admited?: No Condition: Stable Referrals: ROBERT QUIÑONEZ MD [Primary Care Provider] - 3-5 Days
--- NOTE | 2019-10-09 00:32 | Cat Scan Report ---
CT HEAD WITHOUT CONTRAST INDICATION / CLINICAL INFORMATION: CODE STROKE PROTOCOL!!! Right sided weakness in extremities.. TECHNIQUE: All CT scans at this location are performed using CT dose reduction for ALARA by means of automated e xposure control. COMPARISON: None available. FINDINGS: HEMORRHAGE: None. EXTRA-AXIAL SPACES: Normal in size and morphology for the patient's age. VENTRICULAR SYSTEM: Normal in size and morphology for the patient's age. CEREBRAL PARENCHYMA: No significant abnormality. No acute territorial infarct. MIDLINE SHIFT OR HERNIATION: None. CEREBELLUM / BRAINSTEM: No significant abnormality. ORBITS: Normal as visualized. SOFT TISSUES of HEAD: No significant abnormality. CALVARIUM: No significant abnormality. PARANASAL SINUSES / MASTOID AIR CELLS: Normal as visualized. ADDITIONAL FINDINGS: None. IMPRESSION: 1. No intracranial bleed or large territorial infarction Code stroke called to Dr. Perkins 11:27 PM 10/08/2019 central standard time Signer Name: Rk Meza MD Signed: 10/09/2019 12:27 AM Workstation Name: [id number]
[2019-10-09 00:41] LABS: Hematocrit 43.3 % (35.5-45.6); Hemoglobin 14.3 gm/dl (11.8-15.2); Mean Corpuscular HGB Conc 33 % (32-34); Mean Corpuscular Volume 87 fl (84-94); Platelet Count 204 K/mm3 (140-440)
--- NOTE | 2019-10-09 00:51 | Emergency Department Report ---
ED Neuro Deficit HPI - General Chief Complaint: Neuro Symptoms/Deficit Stated Complaint: RT SIDE WEAKNESS Time Seen by Provider: 10/09/19 00:14 Source: patient Mode of arrival: Ambulatory Limitations: No Limitations - History of Present Illness Initial Comments: 38 yo M presents to ED reporting onset of right sided weakness, slurred speech after waking up at noon today. Pt states he took a Lyft here. Pt then ambulated inside w/o assistance. Normal neuro exam with triage nurse. Quickly examined pt prior to going to CT, stated he was unable to move his right leg at all. Pt was wheeled to CT immediately and was observed moving his right leg onto the stretcher w/o difficulty. Pt has had 3 different admissions for similar presentations determined to be malingering or conversion disorder. -: hour(s) (12) Location: right leg Presenting Symptoms: Present: Weak/Paralyzed One Side History of same: Yes Quality: weak On Anticoagulants: Yes Associated Symptoms: denies other symptoms Treatments Prior to Arrival: none - Related Data Home Medications: Home Medications Medication Instructions Recorded Confirmed Last Taken Nitroglycerin [Nitrostat] 0.4 mg SL Q5M PRN 08/24/17 06/17/18 Unknown Previous Rx's Medication Instructions Recorded Last Taken Type carvediloL [Coreg] 12.5 mg PO BID #60 tablet 08/25/17 Unknown Rx Docusate Sodium [Colace CAP] 100 mg PO BID #30 capsule 05/13/18 Unknown Rx Nicotine [Habitrol] 21 mg TD DAILY #30 patch 06/18/18 Unknown Rx Pantoprazole [Protonix TAB] 40 mg PO BID #60 tablet 06/18/18 Unknown Rx bisacodyL [Dulcolax] 10 mg PO DAILY PRN #14 tab 06/18/18 Unknown Rx Docusate Sodium [Colace] 100 mg PO BID 30 Days #60 capsule 06/22/18 Unknown Rx Magnesium Citrate [Citrate of 300 ml PO ONCE 1 Days #1 bottle 06/22/18 Unknown Rx Magnesia] Sodium Phosphate,Knox-Dibasic 118 ml RC ONCE 1 Days #1 enema 06/22/18 Unknown Rx [Fleet Enema] bisacodyL [Dulcolax] 10 mg PO DAILY 1 Days #2 tab 06/22/18 Unknown Rx Menthol/Camphor [[place] 1 applicatio TP QID PRN #1 tube 08/17/18 Unknown Rx Ointment] Acetaminophen [Acetaminophen TAB] 500 mg PO Q6HR #20 tablet 08/31/18 Unknown Rx Ferrous Gluconate [Ferrous 324 mg PO TID #20 tablet 09/06/18 Unknown Rx Gluconate 324 MG] Lansoprazole [Prevacid] 30 mg PO DAILY #30 capsule. 09/06/18 Unknown Rx Prednisone [predniSONE 10 mg 10 mg PO .TAPER #1 tab.ds.pk 09/17/18 Unknown Rx (6-Day Pack, 21 Tabs)] levoFLOXacin [Levaquin TAB] 500 mg PO QDAY #7 tablet 09/17/18 Unknown Rx Menthol/Camphor [[place] 18 gm TP Q4H PRN #1 oint...g. 10/05/18 Unknown Rx Ointment] Famotidine [Pepcid] 20 mg PO BID #60 tablet 02/08/19 Unknown Rx Ondansetron [Zofran Odt] 4 mg PO Q8HR PRN #20 tab.rapdis 02/08/19 Unknown Rx Ciprofloxacin HCl [Ciprofloxacin 250 mg PO BID #14 tablet 06/10/19 Unknown Rx TAB] traMADoL [Ultram] 50 mg PO Q6HR PRN #14 tablet 06/10/19 Unknown Rx Benzonatate [Tessalon Perles] 100 mg PO Q8HR PRN #20 capsule 07/19/19 Unknown Rx Ondansetron [Zofran Odt] 4 mg PO Q8HR PRN #15 tab.rapdis 07/19/19 Unknown Rx Allergies/Adverse Reactions: Allergies Allergy/AdvReac Type Severity Reaction Status Date / Time acetaminophen [From Tylenol] Allergy Itching Verified 11/09/18 02:15 aspirin Allergy Hives Verified 11/09/18 02:15 ED Review of Systems ROS: Stated complaint: RT SIDE WEAKNESS Other details as noted in HPI Comment: All other systems reviewed and negative Neurological: weakness. denies: headache ED Past Medical Hx - Past Medical History Previous Medical History?: Yes Hx Hypertension: Yes Hx CVA: Yes (TIAs, residiu. right side weakness) Hx Heart Attack/AMI: Yes (2 stents placed 2016) Hx Congestive Heart Failure: Yes Hx Diabetes: Yes Hx Deep Vein Thrombosis: Yes (R-leg) Hx Pulmonary Embolism: Yes Hx Asthma: Yes Additional medical history: Ulcers, a-fib. strong family hx of cardiac disorders - Surgical History Hx Coronary Stent: Yes (x2 2017) Additional Surgical History: Stent placement - Social History Smoking Status: Current Every Day Smoker Substance Use Type: None - Medications Home Medications: Home Medications Medication Instructions Recorded Confirmed Last Taken Type Nitroglycerin [Nitrostat] 0.4 mg SL Q5M PRN 08/24/17 06/17/18 Unknown History carvediloL [Coreg] 12.5 mg PO BID #60 tablet 08/25/17 06/17/18 Unknown Rx Docusate Sodium [Colace CAP] 100 mg PO BID #30 capsule 05/13/18 06/17/18 Unknown Rx Nicotine [Habitrol] 21 mg TD DAILY #30 patch 06/18/18 Unknown Rx Pantoprazole [Protonix TAB] 40 mg PO BID #60 tablet 06/18/18 Unknown Rx bisacodyL [Dulcolax] 10 mg PO DAILY PRN #14 tab 06/18/18 Unknown Rx Docusate Sodium [Colace] 100 mg PO BID 30 Days #60 capsule 06/22/18 Unknown Rx Magnesium Citrate [Citrate of 300 ml PO ONCE 1 Days #1 bottle 06/22/18 Unknown Rx Magnesia] Sodium Phosphate,Knox-Dibasic 118 ml RC ONCE 1 Days #1 enema 06/22/18 Unknown Rx [Fleet Enema] bisacodyL [Dulcolax] 10 mg PO DAILY 1 Days #2 tab 06/22/18 Unknown Rx Menthol/Camphor [[place] 1 applicatio TP QID PRN #1 tube 08/17/18 Unknown Rx Ointment] Acetaminophen [Acetaminophen TAB] 500 mg PO Q6HR #20 tablet 08/31/18 Unknown Rx Ferrous Gluconate [Ferrous 324 mg PO TID #20 tablet 09/06/18 Unknown Rx Gluconate 324 MG] Lansoprazole [Prevacid] 30 mg PO DAILY #30 capsule.dr 09/06/18 Unknown Rx Prednisone [predniSONE 10 mg 10 mg PO .TAPER #1 tab.ds.pk 09/17/18 Unknown Rx (6-Day Pack, 21 Tabs)] levoFLOXacin [Levaquin TAB] 500 mg PO QDAY #7 tablet 09/17/18 Unknown Rx Menthol/Camphor [[place] 18 gm TP Q4H PRN #1 oint...g. 10/05/18 Unknown Rx Ointment] Famotidine [Pepcid] 20 mg PO BID #60 tablet 02/08/19 Unknown Rx Ondansetron [Zofran Odt] 4 mg PO Q8HR PRN #20 tab.rapdis 02/08/19 Unknown Rx Ciprofloxacin HCl [Ciprofloxacin 250 mg PO BID #14 tablet 06/10/19 Unknown Rx TAB] traMADoL [Ultram] 50 mg PO Q6HR PRN #14 tablet 06/10/19 Unknown Rx Benzonatate [Tessalon Perles] 100 mg PO Q8HR PRN #20 capsule 07/19/19 Unknown Rx Ondansetron [Zofran Odt] 4 mg PO Q8HR PRN #15 tab.rapdis 07/19/19 Unknown Rx ED Neuro Physical Exam - General Limitations: No Limitations General appearance: alert, in no apparent distress Suspected Stroke: No - Head Head exam: Present: atraumatic, normocephalic - Eye Eye exam: Present: normal appearance, EOMI - ENT ENT exam: Present: mucous membranes moist - Neck Neck exam: Present: normal inspection - Respiratory Respiratory exam: Present: normal lung sounds bilaterally. Absent: respiratory distress - Cardiovascular Cardiovascular Exam: Present: regular rate, normal rhythm - GI/Abdominal GI/Abdominal exam: Present: soft. Absent: distended, tenderness - Extremities Exam Extremities exam: Present: normal inspection - Neurological Exam Neurological exam: Present: alert, oriented X3 - NIHSS Assessment Interval: Baseline 1a. Level of Consciousness: alert/keenly responsive 1b. LOC Questions: answers both correctly 1c. LOC Commands: performs tasks correctly 2. Best Gaze: normal 3. Visual: no visual loss 4. Facial Palsy: normal symmetrical movement 5b. Motor Arm Right: no drift 5a. Motor Arm Left: no drift 6a. Motor Leg Left: no drift 6b. Motor Leg Right: no drift 7. Limb Ataxia: absent 8. Sensory: normal 9. Best Language: no aphasia 10. Dysarthria: normal 11. Extinction/Inattention: no abnormality Total Score: 0 Stroke Severity: No Stroke Symptoms - Psychiatric Psychiatric exam: Present: normal affect, normal mood - Skin Skin exam: Present: warm, dry, intact, normal color ED Course Vital Signs 10/09/19 10/09/19 10/09/19 00:39 00:58 01:25 Pulse Rate 104 H 97 H 98 H Respiratory 19 19 Rate Blood Pressure 138/81 127/83 [Right] O2 Sat by Pulse 98 98 Oximetry - Lab Data Result diagrams: 10/09/19 00:21 10/09/19 00:21 Lab Results 10/09/19 10/09/19 10/09/19 Range/Units 00:21 00:21 00:21 WBC 4.4 L (4.5-11.0) K/mm3 RBC 5.00 (3.65-5.03) M/mm3 Hgb 14.3 (11.8-15.2) gm/dl Hct 43.3 (35.5-45.6) % MCV 87 (84-94) fl MCH 29 (28-32) pg MCHC 33 (32-34) % RDW 21.1 H (13.2-15.2) % Plt Count 204 (140-440) K/mm3 PT 15.4 H (12.2-14.9) Sec. INR 1.25 H (0.87-1.13) APTT 24.6 (24.2-36.6) Sec. Thrombin Time 15.3 (15.1-19.6) Sec. Sodium 138 (137-145) mmol/L Potassium 3.8 (3.6-5.0) mmol/L Chloride 101.9 (98-107) mmol/L Carbon Dioxide 22 (22-30) mmol/L Anion Gap 18 mmol/L BUN 14 (9-20) mg/dL Creatinine 1.3 (0.8-1.5) mg/dL Estimated GFR > 60 ml/min BUN/Creatinine Ratio 11 % Glucose 118 H (75-100) mg/dL Calcium 9.3 (8.4-10.2) mg/dL Troponin T < 0.010 (0.00-0.029) ng/mL - EKG Data -: EKG Interpreted by De EKG shows normal: sinus rhythm, axis, intervals, QRS complexes, ST-T waves Rate: normal Interpretation: no acute changes - Radiology Data Radiology results: report reviewed, image reviewed - Medical Decision Making - presented w/ R leg weakness - multiple workups in the past for same, at least 3 that I found, and diagnosis ends up being conversion disorder - pt ambulatory; witnessed pt moving his right leg when transferring, but on exam refuses to move his leg when asked, states unable to move it at all - CT Head negative - seen and evaluated by teleneurology, does not recommend another stroke workup - will d/c home, advised outpt f/u - Differential Diagnosis CVA, malingering, conversion d/o Critical care attestation.: If time is entered above; I have spent that time in minutes in the direct care of this critically ill patient, excluding procedure time. ED Disposition Clinical Impression: Leg weakness Qualifiers: Laterality: right Qualified Code(s): R29.898 - Other symptoms and signs involving the musculoskeletal system Disposition: DC- TO HOME OR SELFCARE Is pt being admited?: No Condition: Stable Instructions: Weakness (ED) Referrals: ROBERT QUIÑONEZ MD [Primary Care Provider] - 3-5 Days WILDA DIAZ MD [Staff Physician] - 3-5 Days Time of Disposition: 02:03
[2019-10-09 00:52] LABS: Red Cell Distribution Width 21.1 % (13.2-15.2)
[2019-10-09 00:54] LABS: BUN/Creatinine Ratio 11; Blood Urea Nitrogen 14 mg/dL (9-20); Calcium 9.3 mg/dL (8.4-10.2); Hemolysis Index 10
[2019-10-09 00:56] LABS: INR 1.25 (0.87-1.13)
[2019-10-09 00:57] LABS: Partial Thromboplastin Time 24.6 Sec. (24.2-36.6); Thrombin Time 15.3 Sec. (15.1-19.6)
[2019-10-09 02:43] VITALS: BP 126/84
[2019-10-09 02:55] LABS: Total Cells Counted 100
[2019-10-09 02:57] LABS: Ovalocytes Rare; Platelet Estimate Consistent w Auto
== END 2019-10-09 03:19 | disposition home or self-care (01) ==
LOC: ED 22:39
DX: R53.1 Weakness (principal); I11.0 Hypertensive heart disease with heart failure; I50.9 Heart failure, unspecified; I25.2 Old myocardial infarction; E11.9 Type 2 diabetes mellitus without complications; J45.909 Unspecified asthma, uncomplicated; F17.200 Nicotine dependence, unspecified, uncomplicated; Z86.73 Personal history of transient ischemic attack (TIA), and cerebral infarction without residual deficits; Z86.718 Personal history of other venous thrombosis and embolism; Z86.711 Personal history of pulmonary embolism; Z98.890 Other specified postprocedural states; Z88.1 Allergy status to other antibiotic agents; Z79.899 Other long term (current) drug therapy; Z88.8 Allergy status to other drugs, medicaments and biological substances
CPT/HCPCS: 36415; 70450; 80048; 84484; 85007; 85025; 85610; 85670; 85730; 93005

== ENCOUNTER 2019-11-09 12:47 | Emergency (ER) | payer MEDICAID ==
[2019-11-09 13:08] VITALS: BP 144/82
[2019-11-09] MEDS ORDERED: ONDANSETRON 4 MG/2 ML INJ IV ONE (14:32)
[2019-11-09] MEDS ORDERED: MORPHINE 4 MG/1 ML INJ IV ONE (14:32)
[2019-11-09] MEDS ORDERED: SODIUM CHLORIDE 0.9% 1000 ML 1,000 ML IV ONE (14:32)
--- NOTE | 2019-11-09 15:02 | Emergency Department Report ---
ED Abdominal Pain HPI - General Chief Complaint: Abdominal Pain Stated Complaint: STOMACH Time Seen by Provider: 11/09/19 14:31 Source: patient Mode of arrival: Ambulatory Limitations: No Limitations - History of Present Illness Initial Comments: This is a 38-year-old male nontoxic, well nourished in appearance, no acute signs of distress presents to the ED with c/o of nausea and vomiting and abdominal pain 3 days. Patient describes vomiting as food content and yellow gastric acid. Patient describes abdominal pain as cramping and aching with lev el of 8/10 diffuse. Patient denies chest pain, short of breath, fever, hemoptysis, blood in stool, chills, headache, stiff neck, numbness or tingling. Patient denies any diarrhea or constipation. Denies any blood in stool. Patient denies any recent travels. Patient stated allergies to aspirin and Tylenol. MD Complaint: abdominal pain -: days(s) (3) Location: diffuse Radiation: none Migration to: no migration Severity: moderate Severity scale (0 -10): 8 Quality: cramping, aching Consistency: constant Improves With: nothing Worsens With: nothing Associated Symptoms: nausea, vomiting. denies: diarrhea, fever, chills, constipation, dysuria, hematemesis, hematochezia, melena, hematuria, anorexia, syncope - Related Data Home Medications Medication Instructions Recorded Confirmed Last Taken Nitroglycerin [Nitrostat] 0.4 mg SL Q5M PRN 08/24/17 06/17/18 Unknown Previous Rx's Medication Instructions Recorded Last Taken Type carvediloL [Coreg] 12.5 mg PO BID #60 tablet 08/25/17 Unknown Rx Docusate Sodium [Colace CAP] 100 mg PO BID #30 capsule 05/13/18 Unknown Rx Nicotine [Habitrol] 21 mg TD DAILY #30 patch 06/18/18 Unknown Rx Pantoprazole [Protonix TAB] 40 mg PO BID #60 tablet 06/18/18 Unknown Rx bisacodyL [Dulcolax] 10 mg PO DAILY PRN #14 tab 06/18/18 Unknown Rx Docusate Sodium [Colace] 100 mg PO BID 30 Days #60 capsule 06/22/18 Unknown Rx Magnesium Citrate [Citrate of 300 ml PO ONCE 1 Days #1 bottle 06/22/18 Unknown Rx Magnesia] Sodium Phosphate,[place]-Dibasic 118 ml RC ONCE 1 Days #1 enema 06/22/18 Unknown Rx [Fleet Enema] bisacodyL [Dulcolax] 10 mg PO DAILY 1 Days #2 tab 06/22/18 Unknown Rx Menthol/Camphor [[place] 1 applicatio TP QID PRN #1 tube 08/17/18 Unknown Rx Ointment] Acetaminophen [Acetaminophen TAB] 500 mg PO Q6HR #20 tablet 08/31/18 Unknown Rx Ferrous Gluconate [Ferrous 324 mg PO TID #20 tablet 09/06/18 Unknown Rx Gluconate 324 MG] Lansoprazole [Prevacid] 30 mg PO DAILY #30 capsule.dr 09/06/18 Unknown Rx Prednisone [predniSONE 10 mg 10 mg PO .TAPER #1 tab.ds.pk 09/17/18 Unknown Rx (6-Day Pack, 21 Tabs)] levoFLOXacin [Levaquin TAB] 500 mg PO QDAY #7 tablet 09/17/18 Unknown Rx Menthol/Camphor [[place] 18 gm TP Q4H PRN #1 oint...g. 10/05/18 Unknown Rx Ointment] Famotidine [Pepcid] 20 mg PO BID #60 tablet 02/08/19 Unknown Rx Ondansetron [Zofran Odt] 4 mg PO Q8HR PRN #20 tab.rapdis 02/08/19 Unknown Rx Ciprofloxacin HCl [Ciprofloxacin 250 mg PO BID #14 tablet 06/10/19 Unknown Rx TAB] traMADoL [Ultram] 50 mg PO Q6HR PRN #14 tablet 06/10/19 Unknown Rx Benzonatate [Tessalon Perles] 100 mg PO Q8HR PRN #20 capsule 07/19/19 Unknown Rx Ondansetron [Zofran Odt] 4 mg PO Q8HR PRN #15 tab.rapdis 07/19/19 Unknown Rx Ondansetron [Zofran Odt] 4 mg PO Q8HR PRN #12 tab.rapdis 11/09/19 Unknown Rx Allergies Allergy/AdvReac Type Severity Reaction Status Date / Time acetaminophen [From Tylenol] Allergy Itching Verified 11/09/18 02:15 aspirin Allergy Hives Verified 11/09/18 02:15 ED Review of Systems ROS: Stated complaint: STOMACH Other details as noted in HPI Constitutional: denies: chills, fever Eyes: denies: eye pain, eye discharge, vision change ENT: denies: ear pain, throat pain Respiratory: denies: cough, shortness of breath, wheezing Cardiovascular: denies: chest pain, palpitations Endocrine: no symptoms reported Gastrointestinal: abdominal pain, nausea, vomiting. denies: diarrhea Genitourinary: denies: urgency, dysuria Musculoskeletal: denies: back pain, joint swelling, arthralgia Skin: denies: rash, lesions Neurological: denies: headache, weakness, paresthesias Psychiatric: denies: anxiety, depression Hematological/Lymphatic: denies: easy bleeding, easy bruising ED Past Medical Hx - Past Medical History Previous Medical History?: Yes Hx Hypertension: Yes Hx CVA: Yes (TIAs, residiu. right side weakness) Hx Heart Attack/AMI: Yes (2 stents placed 2016) Hx Congestive Heart Failure: Yes Hx Diabetes: Yes Hx Deep Vein Thrombosis: Yes (R-leg) Hx Pulmonary Embolism: Yes Hx Asthma: Yes Additional medical history: Ulcers, a-fib. strong family hx of cardiac disorders - Surgical History Past Surgical History?: Yes Hx Coronary Stent: Yes (x2 2017) Additional Surgical History: Stent placement - Social History Smoking Status: Current Every Day Smoker Substance Use Type: Alcohol - Medications Home Medications: Home Medications Medication Instructions Recorded Confirmed Last Taken Type Nitroglycerin [Nitrostat] 0.4 mg SL Q5M PRN 08/24/17 06/17/18 Unknown History carvediloL [Coreg] 12.5 mg PO BID #60 tablet 08/25/17 06/17/18 Unknown Rx Docusate Sodium [Colace CAP] 100 mg PO BID #30 capsule 05/13/18 06/17/18 Unknown Rx Nicotine [Habitrol] 21 mg TD DAILY #30 patch 06/18/18 Unknown Rx Pantoprazole [Protonix TAB] 40 mg PO BID #60 tablet 06/18/18 Unknown Rx bisacodyL [Dulcolax] 10 mg PO DAILY PRN #14 tab 06/18/18 Unknown Rx Docusate Sodium [Colace] 100 mg PO BID 30 Days #60 capsule 06/22/18 Unknown Rx Magnesium Citrate [Citrate of 300 ml PO ONCE 1 Days #1 bottle 06/22/18 Unknown Rx Magnesia] Sodium Phosphate,[place]-Dibasic 118 ml RC ONCE 1 Days #1 enema 06/22/18 Unknown Rx [Fleet Enema] bisacodyL [Dulcolax] 10 mg PO DAILY 1 Days #2 tab 06/22/18 Unknown Rx Menthol/Camphor [[place] 1 applicatio TP QID PRN #1 tube 08/17/18 Unknown Rx Ointment] Acetaminophen [Acetaminophen TAB] 500 mg PO Q6HR #20 tablet 08/31/18 Unknown Rx Ferrous Gluconate [Ferrous 324 mg PO TID #20 tablet 09/06/18 Unknown Rx Gluconate 324 MG] Lansoprazole [Prevacid] 30 mg PO DAILY #30 capsule.dr 09/06/18 Unknown Rx Prednisone [predniSONE 10 mg 10 mg PO .TAPER #1 tab.ds.pk 09/17/18 Unknown Rx (6-Day Pack, 21 Tabs)] levoFLOXacin [Levaquin TAB] 500 mg PO QDAY #7 tablet 09/17/18 Unknown Rx Menthol/Camphor [[place] 18 gm TP Q4H PRN #1 oint...g. 10/05/18 Unknown Rx Ointment] Famotidine [Pepcid] 20 mg PO BID #60 tablet 02/08/19 Unknown Rx Ondansetron [Zofran Odt] 4 mg PO Q8HR PRN #20 tab.rapdis 02/08/19 Unknown Rx Ciprofloxacin HCl [Ciprofloxacin 250 mg PO BID #14 tablet 06/10/19 Unknown Rx TAB] traMADoL [Ultram] 50 mg PO Q6HR PRN #14 tablet 06/10/19 Unknown Rx Benzonatate [Tessalon Perles] 100 mg PO Q8HR PRN #20 capsule 07/19/19 Unknown Rx Ondansetron [Zofran Odt] 4 mg PO Q8HR PRN #15 tab.rapdis 07/19/19 Unknown Rx Ondansetron [Zofran Odt] 4 mg PO Q8HR PRN #12 tab.rapdis 11/09/19 Unknown Rx ED Physical Exam - General Limitations: No Limitations General appearance: alert, in no apparent distress - Head Head exam: Present: atraumatic, normocephalic - Eye Eye exam: Present: normal appearance - Neck Neck exam: Present: normal inspection, full ROM. Absent: tenderness, meningismus, lymphadenopathy - Respiratory Respiratory exam: Present: normal lung sounds bilaterally. Absent: respiratory distress, wheezes, rales, rhonchi, stridor, chest wall tenderness, accessory muscle use, decreased breath sounds, prolonged expiratory - Cardiovascular Cardiovascular Exam: Present: regular rate, normal rhythm, normal heart sounds. Absent: irregular rhythm, systolic murmur, diastolic murmur, rubs, gallop - GI/Abdominal GI/Abdominal exam: Present: soft, tenderness (diffuse), normal bowel sounds. Absent: distended, guarding, rebound, rigid, diminished bowel sounds - Extremities Exam Extremities exam: Present: normal inspection, full ROM - Back Exam Back exam: Present: normal inspection, full ROM. Absent: tenderness, CVA tenderness (R), CVA tenderness (L), muscle spasm, paraspinal tenderness, vertebral tenderness, rash noted - Neurological Exam Neurological exam: Present: alert, oriented X3, normal gait - Psychiatric Psychiatric exam: Present: normal affect, normal mood - Skin Skin exam: Present: warm, dry, intact, normal color. Absent: rash ED Course Vital Signs 11/09/19 11/09/19 13:07 16:28 Temperature 98.1 F Pulse Rate 99 H Respiratory 18 18 Rate Blood Pressure 144/82 [Right] O2 Sat by Pulse 96 Oximetry - Reevaluation(s) Reevaluation #1: 11/09/19 15:02 Patient is speaking in full sentences with no signs of distress noted. ED Medical Decision Making - Lab Data Result diagrams: 11/09/19 14:40 11/09/19 14:40 Lab Results 11/09/19 11/09/19 11/09/19 Range/Units 14:40 14:40 14:40 WBC TNR 3.7 L RBC TNR 4.99 Hgb TNR 14.9 Hct TNR 43.9 MCV TNR 88 MCH TNR 30 MCHC TNR 34 RDW TNR 17.2 H Plt Count TNR 198 Lymph % (Auto) TNR [place] % (Auto) TNR [employer] Eos % (Auto) TNR Baso % (Auto) TNR [place] # TNR Eos # TNR Baso # TNR Add Manual Diff Complete Total Counted 100 Seg Neutrophils % TNR Seg Neuts % (Manual) 72.0 H (40.0-70.0) % Band Neutrophils % 0 % Lymphocytes % (Manual) 6.0 L (13.4-35.0) % Reactive Lymphs % (Man) 0 % Monocytes % (Manual) 22.0 H (0.0-7.3) % Eosinophils % (Manual) 0 (0.0-4.3) % Basophils % (Manual) 0 (0.0-1.8) % Metamyelocytes % 0 % Myelocytes % 0 % Promyelocytes % 0 % Blast Cells % 0 % Nucleated RBC % Not Reportable Seg Neutrophils # TNR Seg Neutrophils # Man 2.7 (1.8-7.7) K/mm3 Band Neutrophils # 0.0 K/mm3 Lymphocytes # (Manual) 0.2 L (1.2-5.4) K/mm3 Abs React Lymphs (Man) 0.0 K/mm3 Monocytes # (Manual) 0.8 (0.0-0.8) K/mm3 Eosinophils # (Manual) 0.0 (0.0-0.4) K/mm3 Basophils # (Manual) 0.0 (0.0-0.1) K/mm3 Metamyelocytes # 0.0 K/mm3 Myelocytes # 0.0 K/mm3 Promyelocytes # 0.0 K/mm3 Blast Cells # 0.0 K/mm3 WBC Morphology Not Reportable Hypersegmented Neuts Not Reportable Hyposegmented Neuts Not Reportable Hypogranular Neuts Not Reportable Smudge Cells Not Reportable Toxic Granulation Not Reportable Toxic Vacuolation Not Reportable Dohle Bodies Not Reportable Pelger-Huet Anomaly Not Reportable Clair Rods Not Reportable Platelet Estimate Consistent w auto Clumped Platelets Not Reportable Plt Clumps, EDTA Not Reportable Large Platelets Not Reportable Giant Platelets Not Reportable Platelet Satelliting Not Reportable Plt Morphology Comment Not Reportable RBC Morphology Not Reportable Dimorphic RBCs Not Reportable Polychromasia Not Reportable Hypochromasia Not Reportable Poikilocytosis 1+ Anisocytosis 1+ Microcytosis Not Reportable Macrocytosis Not Reportable Spherocytes Not Reportable Pappenheimer Bodies Not Reportable Sickle Cells Not Reportable Target Cells Not Reportable Tear Drop Cells Not Reportable Ovalocytes 1+ Helmet Cells Not Reportable [place] Bodies Not Reportable [place] Rings Not Reportable Melo Cells Not Reportable Bite Cells Not Reportable Crenated Cell Not Reportable Elliptocytes Not Reportable Acanthocytes (Spur) Not Reportable Rouleaux Not Reportable Hemoglobin C Crystals Not Reportable Schistocytes Not Reportable Malaria parasites Not Reportable [place] Bodies Not Reportable Hem Pathologist Commnt No Sodium 137 (137-145) mmol/L Potassium 3.9 (3.6-5.0) mmol/L Chloride 99.5 (98-107) mmol/L Carbon Dioxide 24 (22-30) mmol/L Anion Gap 17 mmol/L BUN 10 (9-20) mg/dL Creatinine 1.5 (0.8-1.5) mg/dL Estimated GFR > 60 ml/min BUN/Creatinine Ratio 7 % Glucose 103 H (75-100) mg/dL Calcium 9.4 (8.4-10.2) mg/dL Total Bilirubin 0.40 (0.1-1.2) mg/dL AST 26 (5-40) units/L ALT 36 (7-56) units/L Alkaline Phosphatase 106 (35-129) units/L Total Protein 8.3 H (6.3-8.2) g/dL Albumin 4.3 (3.9-5) g/dL Albumin/Globulin Ratio 1.1 % Lipase 17 (13-60) units/L Urine Color (Yellow) Urine Turbidity (Clear) Urine pH (5.0-7.0) Ur Specific [place] (1.003-1.030) Urine Protein (Negative) mg/dL Urine Glucose (UA) (Negative) mg/dL Urine Ketones (Negative) mg/dL Urine Blood (Negative) Urine Nitrite (Negative) Urine Bilirubin (Negative) Urine Urobilinogen (<2.0) mg/dL Ur Leukocyte Esterase (Negative) Urine WBC (Auto) (0.0-6.0) /HPF Urine RBC (Auto) (0.0-6.0) /HPF U Epithel Cells (Auto) (0-13.0) /HPF //20 Range/Units Unknown WBC RBC Hgb Hct MCV MCH MCHC RDW Plt Count Lymph % (Auto) [place] % (Auto) Eos % (Auto) Baso % (Auto) [place] # Eos # Baso # Add Manual Diff Total Counted Seg Neutrophils % Seg Neuts % (Manual) (40.0-70.0) % Band Neutrophils % % Lymphocytes % (Manual) (13.4-35.0) % Reactive Lymphs % (Man) % Monocytes % (Manual) (0.0-7.3) % Eosinophils % (Manual) (0.0-4.3) % Basophils % (Manual) (0.0-1.8) % Metamyelocytes % % Myelocytes % % Promyelocytes % % Blast Cells % % Nucleated RBC % Seg Neutrophils # Seg Neutrophils # Man (1.8-7.7) K/mm3 Band Neutrophils # K/mm3 Lymphocytes # (Manual) (1.2-5.4) K/mm3 Abs React Lymphs (Man) K/mm3 Monocytes # (Manual) (0.0-0.8) K/mm3 Eosinophils # (Manual) (0.0-0.4) K/mm3 Basophils # (Manual) (0.0-0.1) K/mm3 Metamyelocytes # K/mm3 Myelocytes # K/mm3 Promyelocytes # K/mm3 Blast Cells # K/mm3 WBC Morphology Hypersegmented Neuts Hyposegmented Neuts Hypogranular Neuts Smudge Cells Toxic Granulation Toxic Vacuolation Dohle Bodies Pelger-Huet Anomaly Clair Rods Platelet Estimate Clumped Platelets Plt Clumps, EDTA Large Platelets Giant Platelets Platelet Satelliting Plt Morphology Comment RBC Morphology Dimorphic RBCs Polychromasia Hypochromasia Poikilocytosis Anisocytosis Microcytosis Macrocytosis Spherocytes Pappenheimer Bodies Sickle Cells Target Cells Tear Drop Cells Ovalocytes Helmet Cells Murray-[place] Bodies Henderson Rings Melo Cells Bite Cells Crenated Cell Elliptocytes Acanthocytes (Spur) Rouleaux Hemoglobin C Crystals Schistocytes Malaria parasites Dale Bodies Hem Pathologist Commnt Sodium (137-145) mmol/L Potassium (3.6-5.0) mmol/L Chloride (98-107) mmol/L Carbon Dioxide (22-30) mmol/L Anion Gap mmol/L BUN (9-20) mg/dL Creatinine (0.8-1.5) mg/dL Estimated GFR ml/min BUN/Creatinine Ratio % Glucose (75-100) mg/dL Calcium (8.4-10.2) mg/dL Total Bilirubin (0.1-1.2) mg/dL AST (5-40) units/L ALT (7-56) units/L Alkaline Phosphatase (35-129) units/L Total Protein (6.3-8.2) g/dL Albumin (3.9-5) g/dL Albumin/Globulin Ratio % Lipase (13-60) units/L Urine Color Straw (Yellow) Urine Turbidity Clear (Clear) Urine pH 6.0 (5.0-7.0) Ur Specific [place] 1.044 H (1.003-1.030) Urine Protein <15 mg/dl (Negative) mg/dL Urine Glucose (UA) Neg (Negative) mg/dL Urine Ketones Tr (Negative) mg/dL Urine Blood Sm (Negative) Urine Nitrite Neg (Negative) Urine Bilirubin Neg (Negative) Urine Urobilinogen < 2.0 (<2.0) mg/dL Ur Leukocyte Esterase Neg (Negative) Urine WBC (Auto) 2.0 (0.0-6.0) /HPF Urine RBC (Auto) 4.0 (0.0-6.0) /HPF U Epithel Cells (Auto) < 1.0 (0-13.0) /HPF - Radiology Data Referring Physician: MARSHALL CHILEL Patient Name: DYAN SHEFFEILD Date of : 1980 Sex: Male Report Date: 2019-11-09 Report Status: [place] [address] Cat Scan Report Signed Patient: DYAN SHEFFIELD JR MR#: [id number] : 1980 Acct:[id number] Age/Sex: 38 / M ADM Date: 11/09/19 Loc: ED Attending Dr: Ordering Physician: MARSHALL CHILEL NP Date of Service: 11/09/19 Procedure(s): CT abdomen pelvis w con Accession Number(s): [id number] cc: MARSHALL CHILEL NP CT ABDOMEN AND PELVIS WITH CONTRAST INDICATION / CLINICAL INFORMATION: Midabdominal pain with nausea and vomiting. TECHNIQUE: Axial CT images were obtained through the abdomen and pelvis after 100 cc Omnipaque [address] scans at this location are performed using CT dose reduction for ALARA by means of automated exposure control. COMPARISON: CT abdomen and pelvis without contrast from 06/10/2019. FINDINGS: LOWER CHEST: No significant abnormality. LIVER: No significant abnormality. GALLBLADDER: No significant abnormality. BILE DUCTS: No significant abnormality. PANCREAS: No significant abnormality. SPLEEN: No significant abnormality. ADRENALS: No significant abnormality. RIGHT KIDNEY / URETER: A 1-2 mm stone is seen along the upper pole. Multiple simple appearing cysts measure up to 1.1 cm. No additional significant abnormality. LEFT KIDNEY / URETER: A probable subcentimeter cyst is seen medially along the lower pole of the left kidney. No additional significant abnormality. STOMACH / SMALL BOWEL: No significant abnormality of the stomach. No significant abnormality of the duodenum or proximal to mid jejunum. The remaining small bowel is fluid-filled and mildly thickened with mild surrounding inflammation. No suspicious bowel dilatation or other significant abnormality is seen. COLON: There is mild thickening of the colon with generalized hyperemia and no additional significant abnormalities. APPENDIX: No significant abnormality. PERITONEUM: No free fluid. No free air. No fluid collection. There is mild mesenteric congestion. LYMPH NODES: No significant adenopathy. AORTA / ARTERIES: No significant abnormality. IVC / VEINS: No significant abnormality. URINARY BLADDER: No significant abnormality. REPRODUCTIVE ORGANS: No significant abnormality. ADDITIONAL FINDINGS: None. SKELETAL SYSTEM: No significant abnormality. IMPRESSION: 1. Uncomplicated acute enterocolitis. 2. Additional findings as above. Signer Name: Lg Oakley MD Signed: 11/09/2019 4:26 PM Workstation Name: [id number] Transcribed By: [place] Dictated By: Lg Oakley MD Electronically Authenticated By: Lg Oakley MD Signed Date/Time: 11/09/191625 DD/ 20 TD/TT: - Medical Decision Making This is a 38-year-old male that presents with abdominal pain. Patient is stable and was examined by me. Negative signs of symptoms of appendicitis. Labs obtained. UA obtained. CT of abdomen obtained and dictated by the radiologist. Patient is notified of the report with no questions noted by the patient. Vital signs are stable prior to discharge. Patient received medical treatment in the ED which patient stated symptoms has resovled and subsided. Was instructed note to operate any machinery due to possible drowsiness and stated someone will dri ve the patient home. A by mouth challenge has been obtained and patient tolerated well with no nausea vomiting. Patient was also instructed to Follow- up with a primary care doctor in 3-5 days or if symptoms worsen and continue return to emergency room as soon as possible. At time of discharge, the patient does not seem toxic or ill in appearance. No acute signs of distress noted. Patient agrees to discharge treatment plan of care. No further questions noted by the patient. Critical care attestation.: If time is entered above; I have spent that time in minutes in the direct care of this critically ill patient, excluding procedure time. ED Disposition Clinical Impression: Dehydration Abdominal pain Qualifiers: Abdominal location: generalized Qualified Code(s): R10.84 - Generalized abdominal pain Nausea & vomiting Qualifiers: Vomiting type: unspecified Vomiting Intractability: non-intractable Qualified Code(s): R11.2 - Nausea with vomiting, unspecified Disposition: - TO HOME OR SELFCARE Is pt being admited?: No Does the pt Need Aspirin: No Condition: Stable Instructions: Acute Abdominal Pain (ED), Acute Nausea and Vomiting (ED), Dehydration (ED) Additional Instructions: Follow-up with a primary care and doctor in 3-5 days or if symptoms worsen and continue return to emergency room as soon as possible. Prescriptions: Ondansetron [Zofran Odt] 4 mg PO Q8HR PRN #12 tab.rapdis PRN Reason: Nausea Referrals: JESSICA MICHELE MD [Primary Care Provider] - 3-5 Days PRIMARY CARE, [Referring] - 3-5 Days WILDA DIAZ MD [Staff Physician] - 3-5 Days [facility] [Provider Group] - 3-5 Days
[2019-11-09 15:14] LABS: Alanine Aminotransferase 36 units/L (7-56); Albumin 4.3 g/dL (3.9-5); BUN/Creatinine Ratio 7; Blood Urea Nitrogen 10 mg/dL (9-20); Calcium 9.4 mg/dL (8.4-10.2); Hemolysis Index 9
[2019-11-09 15:26] LABS: Hematocrit TNR % (35.5-45.6); Hemoglobin TNR gm/dl (11.8-15.2); Mean Corpuscular HGB Conc TNR % (32-34); Mean Corpuscular Volume TNR fl (84-94); Platelet Count TNR K/mm3 (140-440); Red Blood Count TNR M/mm3 (3.65-5.03); Red Cell Distribution Width TNR % (13.2-15.2)
[2019-11-09 15:27] LABS: Basophils # (Auto) TNR K/mm3 (0.0-0.1); Basophils % (Auto) TNR % (0.0-1.8); Eosinophils # (Auto) TNR K/mm3 (0.0-0.4); Eosinophils % (Auto) TNR % (0.0-4.3); Lymphocytes % (Auto) TNR % (13.4-35.0); Monocytes # (Auto) TNR K/mm3 (0.0-0.8); Monocytes % (Auto) TNR % (0.0-7.3)
[2019-11-09 15:39] LABS: Hematocrit 43.9 % (35.5-45.6); Hemoglobin 14.9 gm/dl (11.8-15.2); Mean Corpuscular HGB Conc 34 % (32-34); Mean Corpuscular Volume 88 fl (84-94); Platelet Count 198 K/mm3 (140-440); Red Blood Count 4.99 M/mm3 (3.65-5.03); Red Cell Distribution Width 17.2 % (13.2-15.2)
--- NOTE | 2019-11-09 16:30 | Cat Scan Report ---
CT ABDOMEN AND PELVIS WITH CONTRAST INDICATION / CLINICAL INFORMATION: Midabdominal pain with nausea and vomiting. TECHNIQUE: Axial CT images were obtained through the abdomen and pelvis after 100 cc Omnipaque [address] scans at this location are performed using CT dose reduction for ALARA by means of automated exposure control. COMPARISON: CT abdomen and pelvis without contrast from 06/10/2019. FINDINGS: LOWER CHEST: No significant abnormality. LIVER: No significant abnormality. GALLBLADDER: No significant abnormality. BILE DUCTS: No significant abnormality. PANCREAS: No significant abnormality. SPLEEN: No significant abnormality. ADRENALS: No significant abnormality. RIGHT KIDNEY / URETER: A 1-2 mm stone is seen along the upper pole. Multiple simple appearing cysts m easure up to 1.1 cm. No additional significant abnormality. LEFT KIDNEY / URETER: A probable subcentimeter cyst is seen medially along the lower pole of the left kidney. No additional significant abnormality. STOMACH / SMALL BOWEL: No significant abnormality of the stomach. No significant abnormality of the d uodenum or proximal to mid jejunum. The remaining small bowel is fluid-filled and mildly thickened wi th mild surrounding inflammation. No suspicious bowel dilatation or other significant abnormality is seen. COLON: There is mild thickening of the colon with generalized hyperemia and no additional significant abnormalities. APPENDIX: No significant abnormality. PERITONEUM: No free fluid. No free air. No fluid collection. There is mild mesenteric congestion. LYMPH NODES: No significant adenopathy. AORTA / ARTERIES: No significant abnormality. IVC / VEINS: No significant abnormality. URINARY BLADDER: No significant abnormality. REPRODUCTIVE ORGANS: No significant abnormality. ADDITIONAL FINDINGS: None. SKELETAL SYSTEM: No significant abnormality. IMPRESSION: 1. Uncomplicated acute enterocolitis. 2. Additional findings as above. Signer Name: Lg Oakley MD Signed: 11/09/2019 4:26 PM Workstation Name: [id number]
[2019-11-09 16:48] LABS: Anisocytosis 1+; Basophils % (Manual) 0 % (0.0-1.8); Eosinophils % (Manual) 0 % (0.0-4.3); Ovalocytes 1+; Platelet Estimate Consistent w Auto; Poikilocytosis 1+; Total Cells Counted 100
[2019-11-09 18:08] LABS: Bilirubin,Urine NEG (Negative); Blood,Urine SM (Negative); Color,Urine Straw (Yellow); Protein,Urine <15 mg/dL mg/dL (Negative); Urobilinogen,Urine < 2.0 mg/dL (<2.0)
== END 2019-11-09 18:32 | disposition home or self-care (01) ==
LOC: ED 12:47
DX: E86.0 Dehydration (principal); I11.0 Hypertensive heart disease with heart failure; I50.9 Heart failure, unspecified; E11.9 Type 2 diabetes mellitus without complications; J45.909 Unspecified asthma, uncomplicated; F17.200 Nicotine dependence, unspecified, uncomplicated; I25.2 Old myocardial infarction; Z95.818 Presence of other cardiac implants and grafts; Z86.718 Personal history of other venous thrombosis and embolism; Z79.01 Long term (current) use of anticoagulants; Z86.711 Personal history of pulmonary embolism; Z88.6 Allergy status to analgesic agent
CPT/HCPCS: 36415; 74177; 80053; 81001; 83690; 85007; 85025; 96361; 96374; 96375; 99284; J2270; J2405; J7030; Q9967

== ENCOUNTER 2019-12-05 00:24 | Emergency (ER) | payer MEDICAID ==
[2019-12-05 00:40] VITALS: BP 134/84
--- NOTE | 2019-12-05 01:22 | XRay Report ---
CHEST 1 VIEW INDICATION / CLINICAL INFORMATION: Chest Pain. COMPARISON: 07/19/2019 FINDINGS: SUPPORT DEVICES: None. HEART / MEDIASTINUM: No significant abnormality. LUNGS / PLEURA: No significant pulmonary or pleural abnormality. No pneumothorax. ADDITIONAL FINDINGS: No significant additional findings. IMPRESSION: No acute disease or interval change from 07/19/2019 Signer Name: Vincent Fountain MD FACR Signed: 12/05/2019 1:18 AM Workstation Name: [id number]
[2019-12-05 01:33] LABS: BUN/Creatinine Ratio 9; Blood Urea Nitrogen 12 mg/dL (9-20); Calcium 9.3 mg/dL (8.4-10.2); Hemolysis Index 17
[2019-12-05 01:43] LABS: Basophils # (Auto) 0.1 K/mm3 (0.0-0.1); Basophils % (Auto) 1.5 % (0.0-1.8); Eosinophils # (Auto) 0.1 K/mm3 (0.0-0.4); Eosinophils % (Auto) 1.6 % (0.0-4.3); Hematocrit 40.8 % (35.5-45.6); Hemoglobin 13.3 gm/dl (11.8-15.2); Lymphocytes # (Auto) 0.9 K/mm3 (1.2-5.4); Lymphocytes % (Auto) 22.5 % (13.4-35.0); Mean Corpuscular HGB Conc 33 % (32-34); Mean Corpuscular Volume 87 fl (84-94); Monocytes # (Auto) 0.5 K/mm3 (0.0-0.8); Monocytes % (Auto) 12.9 % (0.0-7.3); Platelet Count 230 K/mm3 (140-440); Red Blood Count 4.68 M/mm3 (3.65-5.03); Red Cell Distribution Width 17.2 % (13.2-15.2)
== END 2019-12-05 11:06 | disposition left against medical advice (07) ==
LOC: ED 00:24
DX: R07.89 Other chest pain (principal); Z53.21 Procedure and treatment not carried out due to patient leaving prior to being seen by health care provider
CPT/HCPCS: 36415; 71045; 80048; 84484; 85025; 93005

== ENCOUNTER 2019-12-13 08:26 | Emergency (ER) | payer MEDICAID ==
[2019-12-13 08:34] VITALS: BP 133/91
[2019-12-13] MEDS ORDERED: IPRATROPIUM 0.02% NEBU 2.5 ML IH ONE (09:17)
[2019-12-13] MEDS ORDERED: ALBUTEROL 2.5 MG/3 ML NEBU IH ONE (09:17)
[2019-12-13] MEDS ORDERED: dexAMETHasone 20 MG/5 ML VIAL IM ONE (09:17)
--- NOTE | 2019-12-13 09:52 | XRay Report ---
CHEST PA AND LATERAL VIEWS INDICATION: cough, sob. COMPARISON: 12/05/2019 FINDINGS: Support devices: None. Heart: Within normal limits. Lungs/Pleura: No acute pulmonary or pleural findings. IMPRESSION: 1. No acute findings. Signer Name: Melvin Bowman MD Signed: 12/13/2019 9:48 AM Workstation Name: [id number]
[2019-12-13 10:13] LABS: Hematocrit 36.1 % (35.5-45.6); Hemoglobin 12.2 gm/dl (11.8-15.2); Mean Corpuscular HGB Conc 34 % (32-34); Mean Corpuscular Volume 87 fl (84-94); Platelet Count 160 K/mm3 (140-440); Red Blood Count 4.16 M/mm3 (3.65-5.03); Red Cell Distribution Width 17.9 % (13.2-15.2)
[2019-12-13 10:25] LABS: Alanine Aminotransferase 27 units/L (7-56); Albumin 3.7 g/dL (3.9-5); BUN/Creatinine Ratio 10; Blood Urea Nitrogen 12 mg/dL (9-20); Hemolysis Index 6
[2019-12-13 10:41] LABS: INR 1.16 (0.87-1.13)
[2019-12-13 10:42] LABS: Partial Thromboplastin Time 25.5 Sec. (24.2-36.6)
--- NOTE | 2019-12-13 10:50 | Emergency Department Report ---
- General Chief Complaint: Upper Respiratory Infection Stated Complaint: COUGH,DIAHRREA,SOB,HEADACHE Time Seen by Provider: 12/13/19 09:06 Source: patient Mode of arrival: Ambulatory Limitations: No Limitations - History of Present Illness Initial Comments: Patient is a 39-year-old male presents emergency room with complaints of a dry cough that began 3 to 4 days ago. He states he has associated subjective fever, chills, shortness of breath, nausea, vomiting, diarrhea. He states he has a couple of episodes of both the day. He denies any recent travel, recent surgery. He denies any known sick contacts. He denies any chest pain or abdominal pain. Past medical history of asthma, bronchitis, DM, HTN, CHF, A. fib on anticoagulation. He has an allergy to aspirin and Tylenol. - Related Data Home Medications Medication Instructions Recorded Confirmed Last Taken Nitroglycerin [Nitrostat] 0.4 mg SL Q5M PRN 08/24/17 06/17/18 Unknown Previous Rx's Medication Instructions Recorded Last Taken Type carvediloL [Coreg] 12.5 mg PO BID #60 tablet 08/25/17 Unknown Rx Docusate Sodium [Colace CAP] 100 mg PO BID #30 capsule 05/13/18 Unknown Rx Nicotine [Habitrol] 21 mg TD DAILY #30 patch 06/18/18 Unknown Rx Pantoprazole [Protonix TAB] 40 mg PO BID #60 tablet 06/18/18 Unknown Rx bisacodyL [Dulcolax] 10 mg PO DAILY PRN #14 tab 06/18/18 Unknown Rx Docusate Sodium [Colace] 100 mg PO BID 30 Days #60 capsule 06/22/18 Unknown Rx Magnesium Citrate [Citrate of 300 ml PO ONCE 1 Days #1 bottle 06/22/18 Unknown Rx Magnesia] Sodium Phosphate,[place]-Dibasic 118 ml RC ONCE 1 Days #1 enema 06/22/18 Unknown Rx [Fleet Enema] bisacodyL [Dulcolax] 10 mg PO DAILY 1 Days #2 tab 06/22/18 Unknown Rx Menthol/Camphor [[place] 1 applicatio TP QID PRN #1 tube 08/17/18 Unknown Rx Ointment] Acetaminophen [Acetaminophen TAB] 500 mg PO Q6HR #20 tablet 08/31/18 Unknown Rx Ferrous Gluconate [Ferrous 324 mg PO TID #20 tablet 09/06/18 Unknown Rx Gluconate 324 MG] Lansoprazole [Prevacid] 30 mg PO DAILY #30 capsule. 09/06/18 Unknown Rx Prednisone [predniSONE 10 mg 10 mg PO .TAPER #1 tab.ds.pk 09/17/18 Unknown Rx (6-Day Pack, 21 Tabs)] levoFLOXacin [Levaquin TAB] 500 mg PO QDAY #7 tablet 09/17/18 Unknown Rx Menthol/Camphor [[place] 18 gm TP Q4H PRN #1 oint...g. 10/05/18 Unknown Rx Ointment] Famotidine [Pepcid] 20 mg PO BID #60 tablet 02/08/19 Unknown Rx Ondansetron [Zofran Odt] 4 mg PO Q8HR PRN #20 tab.rapdis 02/08/19 Unknown Rx Ciprofloxacin HCl [Ciprofloxacin 250 mg PO BID #14 tablet 06/10/19 Unknown Rx TAB] traMADoL [Ultram] 50 mg PO Q6HR PRN #14 tablet 06/10/19 Unknown Rx Benzonatate [Tessalon Perles] 100 mg PO Q8HR PRN #20 capsule 07/19/19 Unknown Rx Ondansetron [Zofran Odt] 4 mg PO Q8HR PRN #15 tab.rapdis 07/19/19 Unknown Rx Ondansetron [Zofran Odt] 4 mg PO Q8HR PRN #12 tab.rapdis 11/09/19 Unknown Rx Albuterol Sulfate [Proventil Hfa] 6.7 gm IH Q4HR PRN #1 hfa.aer.ad 12/13/19 Unknown Rx Azithromycin [Zithromax TAB] 250 mg PO QDAY 5 Days #6 tablet 12/13/19 Unknown Rx Prednisone [predniSONE 10 mg 10 mg PO .TAPER #1 tab.ds.pk 12/13/19 Unknown Rx (6-Day Pack, 21 Tabs)] Promethazine [Phenergan] 25 mg PO Q8HR PRN #10 tab 12/13/19 Unknown Rx Allergies Allergy/AdvReac Type Severity Reaction Status Date / Time acetaminophen [From Tylenol] Allergy Itching Verified 11/09/18 02:15 aspirin Allergy Hives Verified 11/09/18 02:15 ED Review of Systems ROS: Stated complaint: COUGH,DIAHRREA,SOB,HEADACHE Other details as noted in HPI Comment: All other systems reviewed and negative ED Past Medical Hx - Past Medical History Previous Medical History?: Yes Hx Hypertension: Yes Hx CVA: Yes (TIAs, residiu. right side weakness) Hx Heart Attack/AMI: Yes (2 stents placed 2017) Hx Congestive Heart Failure: Yes Hx Diabetes: Yes Hx Deep Vein Thrombosis: Yes (R-leg) Hx Pulmonary Embolism: Yes Hx Asthma: Yes Additional medical history: Ulcers, a-fib. strong family hx of cardiac disorders - Surgical History Past Surgical History?: Yes Hx Coronary Stent: Yes (x2 2017) Additional Surgical History: Stent placement - Social History Smoking Status: Never Smoker Substance Use Type: None - Medications Home Medications: Home Medications Medication Instructions Recorded Confirmed Last Taken Type Nitroglycerin [Nitrostat] 0.4 mg SL Q5M PRN 08/24/17 06/17/18 Unknown History carvediloL [Coreg] 12.5 mg PO BID #60 tablet 08/25/17 06/17/18 Unknown Rx Docusate Sodium [Colace CAP] 100 mg PO BID #30 capsule 05/13/18 06/17/18 Unknown Rx Nicotine [Habitrol] 21 mg TD DAILY #30 patch 06/18/18 Unknown Rx Pantoprazole [Protonix TAB] 40 mg PO BID #60 tablet 06/18/18 Unknown Rx bisacodyL [Dulcolax] 10 mg PO DAILY PRN #14 tab 06/18/18 Unknown Rx Docusate Sodium [Colace] 100 mg PO BID 30 Days #60 capsule 06/22/18 Unknown Rx Magnesium Citrate [Citrate of 300 ml PO ONCE 1 Days #1 bottle 06/22/18 Unknown Rx Magnesia] Sodium Phosphate,[place]-Dibasic 118 ml RC ONCE 1 Days #1 enema 06/22/18 Unknown Rx [Fleet Enema] bisacodyL [Dulcolax] 10 mg PO DAILY 1 Days #2 tab 06/22/18 Unknown Rx Menthol/Camphor [[place] 1 applicatio TP QID PRN #1 tube 08/17/18 Unknown Rx Ointment] Acetaminophen [Acetaminophen TAB] 500 mg PO Q6HR #20 tablet 08/31/18 Unknown Rx Ferrous Gluconate [Ferrous 324 mg PO TID #20 tablet 09/06/18 Unknown Rx Gluconate 324 MG] Lansoprazole [Prevacid] 30 mg PO DAILY #30 capsule.dr 09/06/18 Unknown Rx Prednisone [predniSONE 10 mg 10 mg PO .TAPER #1 tab.ds.pk 09/17/18 Unknown Rx (6-Day Pack, 21 Tabs)] levoFLOXacin [Levaquin TAB] 500 mg PO QDAY #7 tablet 09/17/18 Unknown Rx Menthol/Camphor [[place] 18 gm TP Q4H PRN #1 oint...g. 10/05/18 Unknown Rx Ointment] Famotidine [Pepcid] 20 mg PO BID #60 tablet 02/08/19 Unknown Rx Ondansetron [Zofran Odt] 4 mg PO Q8HR PRN #20 tab.rapdis 02/08/19 Unknown Rx Ciprofloxacin HCl [Ciprofloxacin 250 mg PO BID #14 tablet 06/10/19 Unknown Rx TAB] traMADoL [Ultram] 50 mg PO Q6HR PRN #14 tablet 06/10/19 Unknown Rx Benzonatate [Tessalon Perles] 100 mg PO Q8HR PRN #20 capsule 07/19/19 Unknown Rx Ondansetron [Zofran Odt] 4 mg PO Q8HR PRN #15 tab.rapdis 07/19/19 Unknown Rx Ondansetron [Zofran Odt] 4 mg PO Q8HR PRN #12 tab.rapdis 11/09/19 Unknown Rx Albuterol Sulfate [Proventil Hfa] 6.7 gm IH Q4HR PRN #1 hfa.aer.ad 12/13/19 Unknown Rx Azithromycin [Zithromax TAB] 250 mg PO QDAY 5 Days #6 tablet 12/13/19 Unknown Rx Prednisone [predniSONE 10 mg 10 mg PO .TAPER #1 tab.ds.pk 12/13/19 Unknown Rx (6-Day Pack, 21 Tabs)] Promethazine [Phenergan] 25 mg PO Q8HR PRN #10 tab 12/13/19 Unknown Rx ED Physical Exam - General Limitations: No Limitations General appearance: alert, in no apparent distress - Head Head exam: Present: atraumatic, normocephalic - Eye Eye exam: Present: normal appearance - ENT ENT exam: Present: mucous membranes moist - Respiratory Respiratory exam: Present: wheezes (right sided), rhonchi (right sided). Absent: respiratory distress, rales, stridor, chest wall tenderness, accessory muscle use, decreased breath sounds, prolonged expiratory - Cardiovascular Cardiovascular Exam: Present: regular rate, normal rhythm, normal heart sounds. Absent: systolic murmur, diastolic murmur, rubs, gallop - Neurological Exam Neurological exam: Present: alert, oriented X3 - Psychiatric Psychiatric exam: Present: normal affect, normal mood - Skin Skin exam: Present: warm, dry, intact ED Course Vital Signs 12/13/19 08:32 Temperature 98.0 F Pulse Rate 86 Respiratory 20 Rate Blood Pressure 133/91 O2 Sat by Pulse 96 Oximetry ED Medical Decision Making - Lab Data Result diagrams: 12/13/19 09:38 12/13/19 09:38 Lab Results 12/13/19 12/13/19 12/13/19 Range/Units 09:38 09:38 09:38 WBC 2.5 L (4.5-11.0) K/mm3 RBC 4.16 (3.65-5.03) M/mm3 Hgb 12.2 (11.8-15.2) gm/dl Hct 36.1 (35.5-45.6) % MCV 87 (84-94) fl MCH 29 (28-32) pg MCHC 34 (32-34) % RDW 17.9 H (13.2-15.2) % Plt Count 160 (140-440) K/mm3 [place] % (Auto) [employer] Add Manual Diff Complete Total Counted 100 Seg Neuts % (Manual) 46.0 (40.0-70.0) % Band Neutrophils % 0 % Lymphocytes % (Manual) 34.0 (13.4-35.0) % Reactive Lymphs % (Man) 0 % Monocytes % (Manual) 19.0 H (0.0-7.3) % Eosinophils % (Manual) 1.0 (0.0-4.3) % Basophils % (Manual) 0 (0.0-1.8) % Metamyelocytes % 0 % Myelocytes % 0 % Promyelocytes % 0 % Blast Cells % 0 % Nucleated RBC % Not Reportable Seg Neutrophils # Man 1.2 L (1.8-7.7) K/mm3 Band Neutrophils # 0.0 K/mm3 Lymphocytes # (Manual) 0.9 L (1.2-5.4) K/mm3 Abs React Lymphs (Man) 0.0 K/mm3 Monocytes # (Manual) 0.5 (0.0-0.8) K/mm3 Eosinophils # (Manual) 0.0 (0.0-0.4) K/mm3 Basophils # (Manual) 0.0 (0.0-0.1) K/mm3 Metamyelocytes # 0.0 K/mm3 Myelocytes # 0.0 K/mm3 Promyelocytes # 0.0 K/mm3 Blast Cells # 0.0 K/mm3 WBC Morphology Not Reportable Hypersegmented Neuts Not Reportable Hyposegmented Neuts Not Reportable Hypogranular Neuts Not Reportable Smudge Cells Not Reportable Toxic Granulation Not Reportable Toxic Vacuolation Not Reportable Dohle Bodies Not Reportable Pelger-Huet Anomaly Not Reportable Clair Rods Not Reportable Platelet Estimate Consistent w auto Clumped Platelets Not Reportable Plt Clumps, EDTA Not Reportable Large Platelets Not Reportable Giant Platelets Not Reportable Platelet Satelliting Not Reportable Plt Morphology Comment Not Reportable RBC Morphology Not Reportable Dimorphic RBCs Not Reportable Polychromasia Not Reportable Hypochromasia Not Reportable Poikilocytosis Not Reportable Anisocytosis 1+ Microcytosis Not Reportable Macrocytosis Not Reportable Spherocytes Not Reportable Pappenheimer Bodies Not Reportable Sickle Cells Not Reportable Target Cells Not Reportable Tear Drop Cells Not Reportable Ovalocytes Not Reportable Helmet Cells Not Reportable [place] Bodies Not Reportable [place] Rings Not Reportable Melo Cells Not Reportable Bite Cells Not Reportable Crenated Cell Not Reportable Elliptocytes Not Reportable Acanthocytes (Spur) Not Reportable Rouleaux Not Reportable Hemoglobin C Crystals Not Reportable Schistocytes Not Reportable Malaria parasites Not Reportable [place] Bodies Not Reportable Hem Pathologist Commnt No PT 15.0 H (12.2-14.9) Sec. INR 1.16 H (0.87-1.13) APTT 25.5 (24.2-36.6) Sec. Sodium 143 (137-145) mmol/L Potassium 3.5 L (3.6-5.0) mmol/L Chloride 105.4 (98-107) mmol/L Carbon Dioxide 26 (22-30) mmol/L Anion Gap 15 mmol/L BUN 12 (9-20) mg/dL Creatinine 1.2 (0.8-1.3) mg/dL Estimated GFR > 60 ml/min BUN/Creatinine Ratio 10 % Glucose 100 (75-100) mg/dL Calcium 10.0 (8.4-10.2) mg/dL Total Bilirubin 0.30 (0.1-1.2) mg/dL AST 20 (5-40) units/L ALT 27 (7-56) units/L Alkaline Phosphatase 103 (35-129) units/L Total Protein 6.8 (6.3-8.2) g/dL Albumin 3.7 L (3.9-5) g/dL Albumin/Globulin Ratio 1.2 % - Radiology Data Radiology results: report reviewed, image reviewed CHEST PA AND LATERAL VIEWS INDICATION: cough, sob. COMPARISON: 12/05/2019 FINDINGS: Support devices: None. Heart: Within normal limits. Lungs/Pleura: No acute pulmonary or pleural findings. IMPRESSION: 1. No acute findings. Signer Name: Melvin Bowman MD Signed: 12/13/2019 9:48 AM Workstation Name: [id number] Transcribed By: BERENICE Dictated By: Melvin Bowman MD Electronically Authenticated By: Melvin Bowman MD Signed Date/Time: 12/13/19947 DD/ 6 TD/TT: - Medical Decision Making Patient is a 39-year-old male presents emergency room with complaints of a dry cough that began 3 to 4 days ago. He states he has associated subjective fever, chills, shortness of breath, nausea, vomiting, diarrhea. He states he has a couple of episodes of both the day. He denies any recent travel, recent surgery. He denies any known sick contacts. He denies any chest pain or abdominal pain. Past medical history of asthma, bronchitis, DM, HTN, CHF, A. fib on anticoagulation. He has an allergy to aspirin and Tylenol. Vitals are stable. On exam patient has right-sided wheezing and rhonchi, no respiratory distress, no accessory muscle use. Labs significant for decreased and subtherapeutic anticoagulation with INR of 1.16. Patient states that he did not take his Coumadin which explains his INR, advised patient to please take his medication as prescribed by his doctor, he states he does have the medication and does not need a refill of the Coumadin. Chest x-ray shows 1. No acute findings. Patient given nebulizer treatment and steroids and symptoms improved and wheezing completely resolved. Patient will be treated for acute bronchitis with azithromycin, prednisone, albuterol inhaler, Phenergan. Patient is presenting with the symptoms during a COVID-19 pandemic, discussed COVID-19 with patient, discussed strict return precautions, discussed outpatient testing. Patient does not meet hospital criteria for admission or for hospital COVID-19 testing given normal CXR, normal temperature, and normal oxygen saturation on room air. Advised patient please take medication as prescribed. please take your coumadin as prescribed, your numbers are subtherapeutic. Please increase your fluid intake over the next several days. May take Tylenol as needed for fever or body aches. Follow-up with a primary care doctor for reexamination. Return to emergency room immediately for any new or worsening symptoms including but not limited to difficulty breathing, shortness of breath, severe chest pain, unable to tolerate by mouth intake, etc. Please self quarantine for 2 weeks from the onset of your symptoms. Please do not go out in public. If you are around others at home please wear a mask. If you need to cough or sneeze pl ease do so in a napkin and immediately throw it away and immediately wash your hands. Wash your hands frequently. Wipe everything down. Recommend for you to get COVID-19 testing, may have this done at primary care doctor, health department, [facility] [address] thr testing centers. Critical care attestation.: If time is entered above; I have spent that time in minutes in the direct care of this critically ill patient, excluding procedure time. ED Disposition Clinical Impression: Subtherapeutic anticoagulation Acute bronchitis Qualifiers: Bronchitis organism: unspecified organism Qualified Code(s): J20.9 - Acute bronchitis, unspecified Disposition: DC-01 TO HOME OR SELFCARE Is pt being admited?: No Does the pt Need Aspirin: No Condition: Stable Instructions: COVID-19, Acute Bronchitis (ED) Additional Instructions: please take medication as prescribed. please take your coumadin as prescribed, your numbers are subtherapeutic. Please increase your fluid intake over the next several days. May take Tylenol as needed for fever or body aches. Follow- up with a primary care doctor for reexamination. Return to emergency room immediately for any new or worsening symptoms including but not limited to difficulty breathing, shortness of breath, severe chest pain, unable to tolerate by mouth intake, etc. Please self quarantine for 2 weeks from the onset of your symptoms. Please do not go out in public. If you are around others at home please wear a mask. If you need to cough or sneeze please do so in a napkin and immediately throw it away and immediately wash your hands. Wash your hands frequently. Wipe everything down. Recommend for you to get COVID-19 testing, may have this done at primary care doctor, health department, [facility] [address] thr testing centers. Prescriptions: Promethazine [Phenergan] 25 mg PO Q8HR PRN #10 tab PRN Reason: Nausea And Vomiting Prednisone [predniSONE 10 mg (6-Day Pack, 21 Tabs)] 10 mg PO .TAPER #1 tab.ds.pk Albuterol Sulfate [Proventil Hfa] 6.7 gm IH Q4HR PRN #1 hfa.aer.ad PRN Reason: Shortness Of Breath Azithromycin [Zithromax TAB] 250 mg PO QDAY 5 Days #6 tablet Referrals: PRIMARY CARE, [Primary Care Provider] - 2-3 Days Time of Disposition: 10:48 Print Language: MALAGASY
[2019-12-13 11:01] LABS: Anisocytosis 1+; Basophils % (Manual) 0 % (0.0-1.8); Platelet Estimate Consistent w Auto; Total Cells Counted 100
== END 2019-12-13 11:05 | disposition home or self-care (01) ==
LOC: ED 08:26
DX: R79.1 Abnormal coagulation profile (principal); J20.9 Acute bronchitis, unspecified; I11.0 Hypertensive heart disease with heart failure; I50.9 Heart failure, unspecified; I25.2 Old myocardial infarction; M19.90 Unspecified osteoarthritis, unspecified site; Z86.69 Personal history of other diseases of the nervous system and sense organs; Z86.73 Personal history of transient ischemic attack (TIA), and cerebral infarction without residual deficits; Z98.890 Other specified postprocedural states; Z79.899 Other long term (current) drug therapy
CPT/HCPCS: 36415; 71046; 80053; 85007; 85025; 85610; 85730; 96372; 99284; J1100

== ENCOUNTER 2020-02-12 01:21 | Observation (INO) | payer MEDICAID ==
--- NOTE | 2020-02-12 02:30 | XRay Report ---
CHEST 1 VIEW INDICATION / CLINICAL INFORMATION: Chest Pain. COMPARISON: None available. FINDINGS: SUPPORT DEVICES: None. HEART / MEDIASTINUM: No significant abnormality. LUNGS / PLEURA: No significant pulmonary or pleural abnormality.. No pneumothorax. ADDITIONAL FINDINGS: No significant additional findings. IMPRESSION: 1. No acute findings. Signer Name: Dallin Boston MD Signed: 02/12/2020 2:25 AM Workstation Name: [id number]
[2020-02-12 02:49] LABS: Basophils % (Auto) 1.2 % (0.0-1.8); Eosinophils # (Auto) 0.1 K/mm3 (0.0-0.4); Eosinophils % (Auto) 1.9 % (0.0-4.3); Hematocrit 39.3 % (35.5-45.6); Hemoglobin 12.7 gm/dl (11.8-15.2); Lymphocytes # (Auto) 0.9 K/mm3 (1.2-5.4); Lymphocytes % (Auto) 23.3 % (13.4-35.0); Mean Corpuscular HGB Conc 32 % (32-34); Mean Corpuscular Volume 86 fl (84-94); Monocytes # (Auto) 0.5 K/mm3 (0.0-0.8); Monocytes % (Auto) 13.9 % (0.0-7.3); Platelet Count 189 K/mm3 (140-440); Red Blood Count 4.58 M/mm3 (3.65-5.03); Red Cell Distribution Width 16.9 % (13.2-15.2)
[2020-02-12 02:50] LABS: BUN/Creatinine Ratio 11; Blood Urea Nitrogen 14 mg/dL (9-20); Calcium 9.1 mg/dL (8.4-10.2); Hemolysis Index 16
--- NOTE | 2020-02-12 03:48 | Emergency Department Report ---
ED Chest Pain HPI - General Chief Complaint: Chest Pain Stated Complaint: CHEST PAIN Time Seen by Provider: 02/12/20 03:26 Source: patient, old records reviewed Mode of arrival: Ambulatory Limitations: No Limitations - History of Present Illness Initial Comments: 39-year-old obese male with a past medical history of hypertension, diabetes, pulmonary embolism, DVT, atrial fibrillation, CAD with stent x2, asthma, CHF, with multiple TIAs presents to the hospital complaints of chest pain x2 days. Pain is left-sided, sharp, intermittent associated shortness of breath. Worse with deep inspiration. Pain radiation down left arm. Patient denies nausea or vomiting but endorses diaphoresis. Patient quit smoking greater than 3 months ago and has a family history of CAD. Patient has been noncompliant with ALL of his medications including Coumadin, Plavix, and the blood thinner that starts with a "R" due to lack of insurance and inability to follow-up with your doctor for medication refills. [facility] As per medical record last stress test was June 2017 was normal with an EF 57%. Echo 08/02/2017 showed EF of 55 to 60% - Related Data Home Medications Medication Instructions Recorded Confirmed Last Taken Nitroglycerin [Nitrostat] 0.4 mg SL Q5M PRN 08/24/17 06/17/18 Unknown Previous Rx's Medication Instructions Recorded Last Taken Type carvediloL [Coreg] 12.5 mg PO BID #60 tablet 08/25/17 Unknown Rx Docusate Sodium [Colace CAP] 100 mg PO BID #30 capsule 05/13/18 Unknown Rx Nicotine [Habitrol] 21 mg TD DAILY #30 patch 06/18/18 Unknown Rx Pantoprazole [Protonix TAB] 40 mg PO BID #60 tablet 06/18/18 Unknown Rx bisacodyL [Dulcolax] 10 mg PO DAILY PRN #14 tab 06/18/18 Unknown Rx Docusate Sodium [Colace] 100 mg PO BID 30 Days #60 capsule 06/22/18 Unknown Rx Magnesium Citrate [Citrate of 300 ml PO ONCE 1 Days #1 bottle 06/22/18 Unknown Rx Magnesia] Sodium Phosphate,Patrick-Dibasic 118 ml RC ONCE 1 Days #1 enema 06/22/18 Unknown Rx [Fleet Enema] bisacodyL [Dulcolax] 10 mg PO DAILY 1 Days #2 tab 06/22/18 Unknown Rx Menthol/Camphor [[place] 1 applicatio TP QID PRN #1 tube 08/17/18 Unknown Rx Ointment] Acetaminophen [Acetaminophen TAB] 500 mg PO Q6HR #20 tablet 08/31/18 Unknown Rx Ferrous Gluconate [Ferrous 324 mg PO TID #20 tablet 09/06/18 Unknown Rx Gluconate 324 MG] Lansoprazole [Prevacid] 30 mg PO DAILY #30 capsule.dr 09/06/18 Unknown Rx Prednisone [predniSONE 10 mg 10 mg PO .TAPER #1 tab.ds.pk 09/17/18 Unknown Rx (6-Day Pack, 21 Tabs)] levoFLOXacin [Levaquin TAB] 500 mg PO QDAY #7 tablet 09/17/18 Unknown Rx Menthol/Camphor [[place] 18 gm TP Q4H PRN #1 oint...g. 10/05/18 Unknown Rx Ointment] Famotidine [Pepcid] 20 mg PO BID #60 tablet 02/08/19 Unknown Rx Ondansetron [Zofran Odt] 4 mg PO Q8HR PRN #20 tab.rapdis 02/08/19 Unknown Rx Ciprofloxacin HCl [Ciprofloxacin 250 mg PO BID #14 tablet 06/10/19 Unknown Rx TAB] traMADoL [Ultram] 50 mg PO Q6HR PRN #14 tablet 06/10/19 Unknown Rx Benzonatate [Tessalon Perles] 100 mg PO Q8HR PRN #20 capsule 07/19/19 Unknown Rx Ondansetron [Zofran Odt] 4 mg PO Q8HR PRN #15 tab.rapdis 07/19/19 Unknown Rx Ondansetron [Zofran Odt] 4 mg PO Q8HR PRN #12 tab.rapdis 11/09/19 Unknown Rx Albuterol Sulfate [Proventil Hfa] 6.7 gm IH Q4HR PRN #1 hfa.aer.ad 12/13/19 Unknown Rx Azithromycin [Zithromax TAB] 250 mg PO QDAY 5 Days #6 tablet 12/13/19 Unknown Rx Prednisone [predniSONE 10 mg 10 mg PO .TAPER #1 tab.ds.pk 12/13/19 Unknown Rx (6-Day Pack, 21 Tabs)] Promethazine [Phenergan] 25 mg PO Q8HR PRN #10 tab 12/13/19 Unknown Rx Allergies Allergy/AdvReac Type Severity Reaction Status Date / Time acetaminophen [From Tylenol] Allergy Itching Verified 11/09/18 02:15 aspirin Allergy Hives Verified 11/09/18 02:15 Heart Score - HEART Score History: Slightly suspicious EKG: Non-specific Age: < 45 Risk factors: > 3 risk factors or hx of atherosclerotic disease Troponin: < normal limit HEART Score: 3 ED Review of Systems ROS: Stated complaint: CHEST PAIN Other details as noted in HPI Comment: All other systems reviewed and negative ED Past Medical Hx - Past Medical History Previous Medical History?: Yes Hx Hypertension: Yes Hx CVA: Yes (TIAs, residiu. right side weakness) Hx Heart Attack/AMI: Yes (2 stents placed 2016) Hx Congestive Heart Failure: Yes Hx Diabetes: Yes Hx Deep Vein Thrombosis: Yes (R-leg) Hx Pulmonary Embolism: Yes Hx Asthma: Yes Additional medical history: Ulcers, a-fib. strong family hx of cardiac disorders - Surgical History Past Surgical History?: Yes Hx Coronary Stent: Yes (x2 2016) Additional Surgical History: Stent placement - Social History Smoking Status: Former Smoker Substance Use Type: None - Medications Home Medications: Home Medications Medication Instructions Recorded Confirmed Last Taken Type Nitroglycerin [Nitrostat] 0.4 mg SL Q5M PRN 08/24/17 06/17/18 Unknown History carvediloL [Coreg] 12.5 mg PO BID #60 tablet 08/25/17 06/17/18 Unknown Rx Docusate Sodium [Colace CAP] 100 mg PO BID #30 capsule 05/13/18 06/17/18 Unknown Rx Nicotine [Habitrol] 21 mg TD DAILY #30 patch 06/18/18 Unknown Rx Pantoprazole [Protonix TAB] 40 mg PO BID #60 tablet 06/18/18 Unknown Rx bisacodyL [Dulcolax] 10 mg PO DAILY PRN #14 tab 06/18/18 Unknown Rx Docusate Sodium [Colace] 100 mg PO BID 30 Days #60 capsule 06/22/18 Unknown Rx Magnesium Citrate [Citrate of 300 ml PO ONCE 1 Days #1 bottle 06/22/18 Unknown Rx Magnesia] Sodium Phosphate,[place]-Dibasic 118 ml RC ONCE 1 Days #1 enema 06/22/18 Unknown Rx [Fleet Enema] bisacodyL [Dulcolax] 10 mg PO DAILY 1 Days #2 tab 06/22/18 Unknown Rx Menthol/Camphor [[place] 1 applicatio TP QID PRN #1 tube 08/17/18 Unknown Rx Ointment] Acetaminophen [Acetaminophen TAB] 500 mg PO Q6HR #20 tablet 08/31/18 Unknown Rx Ferrous Gluconate [Ferrous 324 mg PO TID #20 tablet 09/06/18 Unknown Rx Gluconate 324 MG] Lansoprazole [Prevacid] 30 mg PO DAILY #30 capsule. 09/06/18 Unknown Rx Prednisone [predniSONE 10 mg 10 mg PO .TAPER #1 tab.ds.pk 09/17/18 Unknown Rx (6-Day Pack, 21 Tabs)] levoFLOXacin [Levaquin TAB] 500 mg PO QDAY #7 tablet 09/17/18 Unknown Rx Menthol/Camphor [[place] 18 gm TP Q4H PRN #1 oint...g. 10/05/18 Unknown Rx Ointment] Famotidine [Pepcid] 20 mg PO BID #60 tablet 02/08/19 Unknown Rx Ondansetron [Zofran Odt] 4 mg PO Q8HR PRN #20 tab.rapdis 02/08/19 Unknown Rx Ciprofloxacin HCl [Ciprofloxacin 250 mg PO BID #14 tablet 06/10/19 Unknown Rx TAB] traMADoL [Ultram] 50 mg PO Q6HR PRN #14 tablet 06/10/19 Unknown Rx Benzonatate [Tessalon Perles] 100 mg PO Q8HR PRN #20 capsule 07/19/19 Unknown Rx Ondansetron [Zofran Odt] 4 mg PO Q8HR PRN #15 tab.rapdis 07/19/19 Unknown Rx Ondansetron [Zofran Odt] 4 mg PO Q8HR PRN #12 tab.rapdis 11/09/19 Unknown Rx Albuterol Sulfate [Proventil Hfa] 6.7 gm IH Q4HR PRN #1 hfa.aer.ad 12/13/19 Unknown Rx Azithromycin [Zithromax TAB] 250 mg PO QDAY 5 Days #6 tablet 12/13/19 Unknown Rx Prednisone [predniSONE 10 mg 10 mg PO .TAPER #1 tab.ds.pk 12/13/19 Unknown Rx (6-Day Pack, 21 Tabs)] Promethazine [Phenergan] 25 mg PO Q8HR PRN #10 tab 12/13/19 Unknown Rx ED Physical Exam - General Limitations: No Limitations - Other Other exam information: General: No acute distress Head: Atraumatic Eyes: normal appearance ENT: Moist mucous membranes Neck: Normal appearance, no midline tenderness Chest: Clear to auscultation bilaterally, mild left upper chest wall tenderness CV: Regular rate and rhythm Abdomen: Soft, normal bowel sounds, nontender, nondistended, no rebound or guarding Back: Normal inspection Extremity: Normal inspection, full range of motion Neuro: Alert O x 3, no facial asymmetry, speech clear, no gross motor sensory deficit Psych: Appropriate behavior Skin: No rash ED Course Vital Signs 02/12/20 02/12/20 02/12/20 01:52 04:00 05:15 Temperature 99.3 F Pulse Rate 103 H 82 83 Respiratory 18 19 18 Rate Blood Pressure 137/67 Blood Pressure 141/90 [left arm] O2 Sat by Pulse 92 94 97 Oximetry KIANNA score - Kianna Score Age > 65: (0) No Aspirin use within the Past 7 Days: (0) No 3 or more CAD Risk Factors: (1) Yes 2 or more Angina events in past 24 hrs: (0) No Known CAD with more than 50% Stenosis: (0) No Elevated Cardiac Markers: (0) No ST Deviation Greater than 0.5mm: (0) No KIANNA Score: 1 ED Medical Decision Making - Lab Data Result diagrams: 02/12/20 02:15 02/12/20 02:15 Lab Results 02/12/20 02/12/20 02/12/20 Range/Units 02:15 02:15 04:30 WBC 3.8 L (4.5-11.0) K/mm3 RBC 4.58 (3.65-5.03) M/mm3 Hgb 12.7 (11.8-15.2) gm/dl Hct 39.3 (35.5-45.6) % MCV 86 (84-94) fl MCH 28 (28-32) pg MCHC 32 (32-34) % RDW 16.9 H (13.2-15.2) % Plt Count 189 (140-440) K/mm3 Lymph % (Auto) 23.3 (13.4-35.0) % Patrick % (Auto) 13.9 H (0.0-7.3) % Eos % (Auto) 1.9 (0.0-4.3) % Baso % (Auto) 1.2 (0.0-1.8) % Lymph # (Auto) 0.9 L (1.2-5.4) K/mm3 Patrick # (Auto) 0.5 (0.0-0.8) K/mm3 Eos # (Auto) 0.1 (0.0-0.4) K/mm3 Baso # (Auto) 0.0 (0.0-0.1) K/mm3 Seg Neutrophils % 59.7 (40.0-70.0) % Seg Neutrophils # 2.3 (1.8-7.7) K/mm3 Sodium 141 (137-145) mmol/L Potassium 3.7 (3.6-5.0) mmol/L Chloride 101.5 (98-107) mmol/L Carbon Dioxide 23 (22-30) mmol/L Anion Gap 20 mmol/L BUN 14 (9-20) mg/dL Creatinine 1.3 (0.8-1.3) mg/dL Estimated GFR > 60 ml/min BUN/Creatinine Ratio 11 % Glucose 114 H (75-100) mg/dL Calcium 9.1 (8.4-10.2) mg/dL Troponin T < 0.010 < 0.010 (0.00-0.029) ng/mL - EKG Data -: EKG Interpreted by Sd EKG shows normal: sinus rhythm, ST-T waves (Nonspecific T wave abnormalities) Rate: normal - EKG Data When compared to previous EKG there are: no significant change - Radiology Data Radiology results: report reviewed CHEST 1 VIEW INDICATION / CLINICAL INFORMATION: Chest Pain. COMPARISON: None available. FINDINGS: SUPPORT DEVICES: None. HEART / MEDIASTINUM: No significant abnormality. LUNGS / PLEURA: No significant pulmonary or pleural abnormality.. No pneumothorax. ADDITIONAL FINDINGS: No significant additional findings. IMPRESSION: 1. No acute findings. CTA of the chest with 3D Reconstruction Indication: Chest pain, TECHNIQUE: Axial CT images were obtained through the chest after injection of 100 cc of Omnipaque 350 IV contrast. 3 plane MIP reconstructions were produced. All CT scans at this location are performed using CT dose reduction for ALARA by means of automated exposure control. COMPARISON: CT dated 06/26/2019 Automatic exposure control was utilized in an attempt to reduce radiation dose. Findings: Pulmonary arteries: The main pulmonary artery and right and left pulmonary artery branches fill satisfactorily with contrast. No pulmonary embolus is seen. Lungs: The lungs are clear. Mediastinum: Heart size is normal. No adenopathy is seen. Aorta: Normal in diameter. No dissection seen within limits of this exam. Impression: No pulmonary embolus is seen - Medical Decision Making Patient presents to the hospital complaining of left-sided chest pain associated symptoms. He has also a history of multiple TIAs, CAD, and possible conversion disorder presents. Patient does however have significant cardiac history including stents with medication noncompliance. CT angiogram negative for pulmonary embolism. Initial EKG and troponins and EKG unremarkable. patient be admitted to the hospital for further cardiac work-up. ASA not provided to to allergy. Critical Care Time: No Critical care attestation.: If time is entered above; I have spent that time in minutes in the direct care of this critically ill patient, excluding procedure time. ED Disposition Clinical Impression: Chest pain, Coronary artery disease, Noncompliance with medication regimen Disposition: OP ADMIT IP TO THIS HOSP Is pt being admited?: Yes Condition: Stable Time of Disposition: 05:51 (Dr Mon/hospitalist)
--- NOTE | 2020-02-12 05:43 | Cat Scan Report ---
CTA of the chest with 3D Reconstruction Indication: Chest pain, TECHNIQUE: Axial CT images were obtained through the chest after injection of 100 cc of Omnipaque 350 IV contrast. 3 plane MIP reconstructions were produced. All CT scans at this location are performed using CT dose reduction for ALARA by means of automated exposure control. COMPARISON: CT dated 06/26/2019 Automatic exposure control was utilized in an attempt to reduce radiation dose. Findings: Pulmonary arteries: The main pulmonary artery and right and left pulmonary artery branches fill satis factorily with contrast. No pulmonary embolus is seen. Lungs: The lungs are clear. Mediastinum: Heart size is normal. No adenopathy is seen. Aorta: Normal in diameter. No dissection seen within limits of this exam. Impression: No pulmonary embolus is seen Signer Name: Dallin Boston MD Signed: 02/12/2020 5:39 AM Workstation Name: [id number]
[2020-02-12] MEDS ORDERED: NITROGLYCERIN 2% OINT 1 GM TP ONE (05:54)
--- NOTE | 2020-02-12 11:24 | History and Physical Report ---
History of Present Illness Date of examination: 02/12/20 Date of admission: 02/12/20 05:52 Chief complaint: Chest pain History of present illness: 39-year-old obese male with a PMH of CAD status post stents, congestive heart failure, atrial fibrillation hypertension, DM, PE, DVT, atrial fibrillation with multiple TIAs who presented to the hospital with chief complaints of chest pain for about 2 days prior to presentation. Patient has left-sided chest discomfort with associated shortness of breath. He also notes radiation of the pain to the left arm. He mentions discomfort with breathing. He has not been taking his usual home medications as prescribed as he ran out and has no insurance. Here in the ER, his EKG showed no clear ST-T changes and troponin x2 -. Patient was admitted for chest pain rule out. He had CTA chest performed to rule out PE and this was negative. His previous stress test done 2 years ago showed no ischemia. Echo showed normal EF. Patient has had multiple presentations to this hospital for similar complaints and has had negative cardiac work-up Past History Past Medical History: CAD, diabetes, DVT, hypertension, hyperlipidemia, pulmonary embolism Medications and Allergies Allergies Allergy/AdvReac Type Severity Reaction Status Date / Time acetaminophen [From Tylenol] Allergy Itching Verified 11/09/18 02:15 aspirin Allergy Hives Verified 11/09/18 02:15 Home Medications Medication Instructions Recorded Confirmed Last Taken Type Nitroglycerin [Nitrostat] 0.4 mg SL Q5M PRN 08/24/17 02/12/20 Unknown History carvediloL [Coreg] 12.5 mg PO BID #60 tablet 08/25/17 02/12/20 Unknown Rx Docusate Sodium [Colace CAP] 100 mg PO BID #30 capsule 05/13/18 02/12/20 Unknown Rx Nicotine [Habitrol] 21 mg TD DAILY #30 patch 06/18/18 02/12/20 Unknown Rx Pantoprazole [Protonix TAB] 40 mg PO BID #60 tablet 06/18/18 02/12/20 Unknown Rx Magnesium Citrate [Citrate of 300 ml PO ONCE 1 Days #1 bottle 06/22/18 02/12/20 Unknown Rx Magnesia] Sodium Phosphate,[place]-Dibasic 118 ml RC ONCE 1 Days #1 enema 06/22/18 02/12/20 Unknown Rx [Fleet Enema] bisacodyL [Dulcolax] 10 mg PO DAILY 1 Days #2 tab 06/22/18 02/12/20 Unknown Rx Menthol/Camphor [[place] 1 applicatio TP QID PRN #1 tube 08/17/18 02/12/20 Unknown Rx Ointment] Acetaminophen [Acetaminophen TAB] 500 mg PO Q6HR #20 tablet 08/31/18 02/12/20 Unknown Rx Ferrous Gluconate [Ferrous 324 mg PO TID #20 tablet 09/06/18 02/12/20 Unknown Rx Gluconate 324 MG] Lansoprazole [Prevacid] 30 mg PO DAILY #30 capsule. 09/06/18 02/12/20 Unknown Rx Menthol/Camphor [[place] 18 gm TP Q4H PRN #1 oint...g. 10/05/18 02/12/20 Unknown Rx Ointment] Famotidine [Pepcid] 20 mg PO BID #60 tablet 02/08/19 02/12/20 Unknown Rx traMADoL [Ultram] 50 mg PO Q6HR PRN #14 tablet 06/10/19 02/12/20 Unknown Rx Benzonatate [Tessalon Perles] 100 mg PO Q8HR PRN #20 capsule 07/19/19 02/12/20 Unknown Rx Ondansetron [Zofran Odt] 4 mg PO Q8HR PRN #12 tab.rapdis 11/09/19 02/12/20 Unknown Rx Albuterol Sulfate [Proventil Hfa] 6.7 gm IH Q4HR PRN #1 hfa.aer.ad 12/13/19 02/12/20 Unknown Rx Promethazine [Phenergan] 25 mg PO Q8HR PRN #10 tab 12/13/19 02/12/20 Unknown Rx Exam - Physical Exam Narrative exam: VITAL SIGNS: Reviewed. GENERAL: Awake and alert on response to questions HEAD: No signs of head trauma. EYES: Pupils are equal. Extraocular motions intact. EARS: Hearing grossly intact. MOUTH: Oropharynx is normal. NECK: No adenopathy, no JVD. CHEST: Chest with diminished breath sounds bilaterally. No wheezes, rales, or rhonchi. CARDIAC: Regular rate and rhythm. S1 and S2, without murmurs, gallops, or rubs. VASCULAR: No Edema. Peripheral pulses normal and equal in all extremities. ABDOMEN: Soft, non tender and non distended. No rebound or guarding, and no masses palpated. Bowel Sounds normal. MUSCULOSKELETAL: Good range of motion of all major joints. Extremities without clubbing, cyanosis or edema. NEUROLOGIC EXAM: Alert and oriented x3. No focal neurologic deficits PSYCHIATRIC: Stable mood SKIN: No obvious lesions - Constitutional Vitals: Temp Pulse Resp BP Pulse Ox 98.3 F 74 8 L 82/32 93 02/12/20 10:58 02/12/20 10:58 02/12/20 10:58 02/12/20 10:58 02/12/20 10:58 HEART Score - HEART Score EKG: Non-specific Age: < 45 Risk factors: > 3 risk factors or hx of atherosclerotic disease Troponin: Troponin T < 0.010 ng/mL (0.00-0.029) 02/12/20 04:30 Troponin: < normal limit Results - Labs CBC & Chem 7: 02/12/20 02:15 02/12/20 02:15 Labs: Laboratory Last Values WBC 3.8 K/mm3 (4.5-11.0) L 02/12/20 02:15 RBC 4.58 M/mm3 (3.65-5.03) 02/12/20 02:15 Hgb 12.7 gm/dl (11.8-15.2) 02/12/20 02:15 Hct 39.3 % (35.5-45.6) 02/12/20 02:15 MCV 86 fl (84-94) 02/12/20 02:15 MCH 28 pg (28-32) 02/12/20 02:15 MCHC 32 % (32-34) 02/12/20 02:15 RDW 16.9 % (13.2-15.2) H 02/12/20 02:15 Plt Count 189 K/mm3 (140-440) 02/12/20 02:15 Lymph % (Auto) 23.3 % (13.4-35.0) 02/12/20 02:15 [place] % (Auto) 13.9 % (0.0-7.3) H 02/12/20 02:15 Eos % (Auto) 1.9 % (0.0-4.3) 02/12/20 02:15 Baso % (Auto) 1.2 % (0.0-1.8) 02/12/20 02:15 Lymph # (Auto) 0.9 K/mm3 (1.2-5.4) L 02/12/20 02:15 [place] # (Auto) 0.5 K/mm3 (0.0-0.8) 02/12/20 02:15 Eos # (Auto) 0.1 K/mm3 (0.0-0.4) 02/12/20 02:15 Baso # (Auto) 0.0 K/mm3 (0.0-0.1) 02/12/20 02:15 Seg Neutrophils % 59.7 % (40.0-70.0) 02/12/20 02:15 Seg Neutrophils # 2.3 K/mm3 (1.8-7.7) 02/12/20 02:15 Sodium 141 mmol/L (137-145) 02/12/20 02:15 Potassium 3.7 mmol/L (3.6-5.0) 02/12/20 02:15 Chloride 101.5 mmol/L (98-107) 02/12/20 02:15 Carbon Dioxide 23 mmol/L (22-30) 02/12/20 02:15 Anion Gap 20 mmol/L 02/12/20 02:15 BUN 14 mg/dL (9-20) 02/12/20 02:15 Creatinine 1.3 mg/dL (0.8-1.3) 02/12/20 02:15 Estimated GFR > 60 ml/min 02/12/20 02:15 BUN/Creatinine Ratio 11 % 02/12/20 02:15 Glucose 114 mg/dL (75-100) H 02/12/20 02:15 POC Glucose 84 mg/dL (70-105) 02/12/20 08:29 Calcium 9.1 mg/dL (8.4-10.2) 02/12/20 02:15 Troponin T < 0.010 ng/mL (0.00-0.029) 02/12/20 04:30 Walker/IV: Voiding Method Toilet IV Catheter Type [right ac] Peripheral IV Assessment and Plan Assessment and plan: Chest pain Chest pain is intermittent and he has a ??history of coronary artery disease with stents Troponin x2 negative Etiology of chest pain -CTA chest ruled out PE Cardiology has been consulted Hypertension -Monitor blood pressure Diabetes -Sliding scale insulin History of DVT and pulmonary embolism -Patient reportedly takes anticoagulation but is unsure about the name Reported history of CVAs -Patient is allergic to aspirin -Started on plavix DVT prophylaxis-Heparin Full code
[2020-02-12] MEDS ORDERED: ONDANSETRON 4 MG/2 ML INJ IV PRN (11:38)
[2020-02-12] MEDS ORDERED: ACETAMINOPHEN 325 MG TAB PO PRN (11:38)
--- NOTE | 2020-02-12 11:38 | Consultation ---
History of Present Illness Consult date: 02/12/20 Consult reason: chest pain History of present illness: This patient is a 39-year-old man admitted with atypical chest pain. He desc ribes poorly characterized, nonexertional chest pain with no associated features. He has a long history of atypical chest pain. He has had extensive cardiac chest pain work-up and multiple admissions over the past several years. This culminated in a cardiac catheterization done at [facility] in 2013 that documented angiographically normal coronary arteries. There is no history of documented coronary artery disease or coronary stents. It to be noted that his medication profile includes Plavix 75 mg daily, this is used as a substitute for his aspirin allergy and intended for primary prevention. Following his angiographic procedure in 2013, he has had multiple thallium st ress test that have all been negative. Serial echocardiograms have documented normal left ventricular systolic function. On this presentation, his ECG is sinus rhythm at 100, normal ECG with no ST or T wave abnormalities. Cardiac troponin levels x2 were normal. Past History Past Medical History: diabetes, DVT, hypertension, hyperlipidemia, pulmonary embolism Medications and Allergies Allergies Allergy/AdvReac Type Severity Reaction Status Date / Time acetaminophen [From Tylenol] Allergy Itching Verified 11/09/18 02:15 aspirin Allergy Hives Verified 11/09/18 02:15 Home Medications Medication Instructions Recorded Confirmed Last Taken Type Nitroglycerin [Nitrostat] 0.4 mg SL Q5M PRN 08/24/17 02/12/20 Unknown History carvediloL [Coreg] 12.5 mg PO BID #60 tablet 08/25/17 02/12/20 Unknown Rx Docusate Sodium [Colace CAP] 100 mg PO BID #30 capsule 05/13/18 02/12/20 Unknown Rx Nicotine [Habitrol] 21 mg TD DAILY #30 patch 06/18/18 02/12/20 Unknown Rx Pantoprazole [Protonix TAB] 40 mg PO BID #60 tablet 06/18/18 02/12/20 Unknown Rx Magnesium Citrate [Citrate of 300 ml PO ONCE 1 Days #1 bottle 06/22/18 02/12/20 Unknown Rx Magnesia] Sodium Phosphate,Alcorn-Dibasic 118 ml RC ONCE 1 Days #1 enema 06/22/18 02/12/20 Unknown Rx [Fleet Enema] bisacodyL [Dulcolax] 10 mg PO DAILY 1 Days #2 tab 06/22/18 02/12/20 Unknown Rx Menthol/Camphor [[place] 1 applicatio TP QID PRN #1 tube 08/17/18 02/12/20 Unknown Rx Ointment] Acetaminophen [Acetaminophen TAB] 500 mg PO Q6HR #20 tablet 08/31/18 02/12/20 Unknown Rx Ferrous Gluconate [Ferrous 324 mg PO TID #20 tablet 09/06/18 02/12/20 Unknown Rx Gluconate 324 MG] Lansoprazole [Prevacid] 30 mg PO DAILY #30 capsule. 09/06/18 02/12/20 Unknown Rx Menthol/Camphor [[place] 18 gm TP Q4H PRN #1 oint...g. 10/05/18 02/12/20 Unknown Rx Ointment] Famotidine [Pepcid] 20 mg PO BID #60 tablet 02/08/19 02/12/20 Unknown Rx traMADoL [Ultram] 50 mg PO Q6HR PRN #14 tablet 06/10/19 02/12/20 Unknown Rx Benzonatate [Tessalon Perles] 100 mg PO Q8HR PRN #20 capsule 07/19/19 02/12/20 Unknown Rx Ondansetron [Zofran Odt] 4 mg PO Q8HR PRN #12 tab.rapdis 11/09/19 02/12/20 Unknown Rx Albuterol Sulfate [Proventil Hfa] 6.7 gm IH Q4HR PRN #1 hfa.aer.ad 12/13/19 1 Unknown Rx Promethazine [Phenergan] 25 mg PO Q8HR PRN #10 tab 12/13/19 02/12/20 Unknown Rx Review of Systems Cardiovascular: chest pain, no orthopnea, no palpitations, no rapid/irregular heart beat, no edema, no syncope, no lightheadedness, no shortness of breath Physical Examination Vital Signs Temp Pulse Resp BP Pulse Ox 99.3 F 103 H 18 137/67 92 02/12/20 01:52 02/12/20 01:52 02/12/20 01:52 02/12/20 01:52 02/12/20 01:52 General appearance: no acute distress HEENT: Positive: PERRL Cardiac: Positive: Reg Rate and Rhythm Lungs: Positive: clear to auscultation Neuro: Positive: Grossly Intact Abdomen: Positive: Soft Male genitourinary: Positive: deferred Skin: Positive: Clear Extremities: Absent: edema Results 02/12/20 02:15 02/12/20 02:15 CBC 02/12/20 Range/Units 02:15 WBC 3.8 L (4.5-11.0) K/mm3 RBC 4.58 (3.65-5.03) M/mm3 Hgb 12.7 (11.8-15.2) gm/dl Hct 39.3 (35.5-45.6) % Plt Count 189 (140-440) K/mm3 Lymph # (Auto) 0.9 L (1.2-5.4) K/mm3 [place]corn # (Auto) 0.5 (0.0-0.8) K/mm3 Eos # (Auto) 0.1 (0.0-0.4) K/mm3 Baso # (Auto) 0.0 (0.0-0.1) K/mm3 Comprehensive Metabolic Panel 02/12/20 Range/Units 02:15 Sodium 141 (137-145) mmol/L Potassium 3.7 (3.6-5.0) mmol/L Chloride 101.5 (98-107) mmol/L Carbon Dioxide 23 (22-30) mmol/L BUN 14 (9-20) mg/dL Creatinine 1.3 (0.8-1.3) mg/dL Glucose 114 H (75-100) mg/dL Calcium 9.1 (8.4-10.2) mg/dL EKG interpretations - Telemetry EKG Rhythm: Sinus Rhythm Assessment and Plan Patient presents with atypical chest pain, has had multiple previous evaluations for cardiac chest pain which have all been negative including a normal cardiac catheterization at [facility] in 2013. Current ECG is normal, serial cardiac troponin levels are normal. No further cardiac work-up is indicated for noncardiac chest pain.
[2020-02-13] MEDS ORDERED: MORPHINE 2 MG/1 ML INJ IV ONE (00:18)
[2020-02-13 06:08] LABS: Basophils % (Auto) 0.4 % (0.0-1.8); Eosinophils # (Auto) 0.1 K/mm3 (0.0-0.4); Eosinophils % (Auto) 1.4 % (0.0-4.3); Hematocrit 38.6 % (35.5-45.6); Hemoglobin 12.8 gm/dl (11.8-15.2); Lymphocytes # (Auto) 1.6 K/mm3 (1.2-5.4); Lymphocytes % (Auto) 23.8 % (13.4-35.0); Mean Corpuscular HGB Conc 33 % (32-34); Mean Corpuscular Volume 85 fl (84-94); Monocytes % (Auto) 14.6 % (0.0-7.3); Platelet Count 214 K/mm3 (140-440); Red Blood Count 4.53 M/mm3 (3.65-5.03); Red Cell Distribution Width 17.4 % (13.2-15.2)
[2020-02-13 06:22] LABS: Alanine Aminotransferase 23 units/L (7-56); Albumin 3.8 g/dL (3.9-5); BUN/Creatinine Ratio 8; Blood Urea Nitrogen 10 mg/dL (9-20); Calcium 8.7 mg/dL (8.4-10.2); Hemolysis Index 5
[2020-02-13] MEDS ORDERED: PANTOPRAZOLE 40 MG TAB PO SCH (07:30)
[2020-02-13] MEDS ORDERED: CLOPIDOGREL 75 MG TAB PO SCH (10:00)
--- NOTE | 2020-02-13 10:55 | Discharge Summary ---
Providers - Providers Date of Admission: 02/12/20 05:52 Date of discharge: 02/13/20 Attending physician: MYRON KHAN 02/12/20 08:45 Consult to Physician [CONS] Routine Comment: Chest pain - history of CAD s/p stents Consulting Provider: LLUVIA RUFF Physician Instructions: Chest pain - history of CAD s/p stents Reason For Exam: Chest pain - history of CAD s/p stents Primary care [facility] Hospitalization Condition: Stable Hospital course: 39-year-old obese male with a PMH of CAD status post stents, congestive heart failure, atrial fibrillation hypertension, DM, PE, DVT, atrial fibrillation with multiple TIAs who presented to the hospital with chief complaints of chest pain for about 2 days prior to presentation. Patient has left-sided chest discomfort with associated shortness of breath. He also notes radiation of the pain to the left arm. He mentions discomfort with breathing. He has not been taking his usual home medications as prescribed as he ran out and has no insurance. Here in the ER, his EKG showed no clear ST-T changes and troponin x2 -. Patient was admitted for chest pain rule out. He had CTA chest performed to rule out PE and this was negative. His previous stress test done 2 years ago showed no ischemia. Echo showed normal EF. Patient has had multiple presentations to this hospital for similar complaints and has had negative cardiac work-up Patient was seen by cardiology and as per cardiology, he does not need further work-up. Patient will need to follow-up with PCP in the office. Patient has been prescribed some pain medications for musculoskeletal pain which is most likely etiology as pain is reproducible with palpation. Disposition: DC- TO HOME OR SELFCARE - Discharge Diagnoses (1) Chest pain Status: Acute Core Measure Documentation - Palliative Care Palliative Care/ Comfort Measures: Not Applicable - Core Measures Any of the following diagnoses?: none Exam - Physical Exam Narrative exam: VITAL SIGNS: Reviewed. GENERAL: Awake and alert on response to questions HEAD: No signs of head trauma. EYES: Pupils are equal. Extraocular motions intact. EARS: Hearing grossly intact. MOUTH: Oropharynx is normal. NECK: No adenopathy, no JVD. CHEST: Chest with diminished breath sounds bilaterally. No wheezes, rales, or rhonchi. CARDIAC: Regular rate and rhythm. S1 and S2, without murmurs, gallops, or rubs. VASCULAR: No Edema. Peripheral pulses normal and equal in all extremities. ABDOMEN: Soft, non tender and non distended. No rebound or guarding, and no masses palpated. Bowel Sounds normal. MUSCULOSKELETAL: Slight left-sided discomfort with discomfort around the shoulder that is reproducible NEUROLOGIC EXAM: Alert and oriented x3. No focal neurologic deficits PSYCHIATRIC: Stable mood SKIN: No obvious lesions - Constitutional Vitals: Temp Pulse Resp BP Pulse Ox 99.0 F 80 16 146/84 92 02/13/20 07:46 02/13/20 09:02 02/13/20 09:02 02/13/20 07:46 02/13/20 07:46 Plan Activity: no restrictions Diet: low fat, low cholesterol, low salt Additional Instructions: Continue pain medications as needed Prescriptions: Clopidogrel [Plavix] 75 mg PO QDAY #30 tablet traMADoL [Ultram 50 MG tab] 50 mg PO Q6HR PRN #10 tablet PRN Reason: Pain
--- NOTE | 2020-02-13 11:04 | Progress Note ---
Assessment and Plan Chest pain, atypical MPI June 2017 documents no ischemia. LHC at [facility] December 2013 reports normal coronaries, EF 65%. Aspirin allergy on clopidogrel for primary prevention of cardiovascular disease. Plan: Conservative cardiac management. We will follow intermittently. Subjective Date of service: 02/13/20 Interval history: Patient is resting in bed and appears comfortable. Objective Vital Signs Temp Pulse Pulse Pulse Pulse Pulse Resp 02/13/20 09:02 80 80 80 80 16 02/13/20 07:46 99.0 F 84 18 02/13/20 04:04 99.2 F 95 H 16 02/13/20 00:44 16 02/12/20 23:50 97.5 F L 62 16 02/12/20 23:43 99.1 F 90 16 02/12/20 20:12 99.4 F 86 16 02/12/20 15:39 98.3 F 77 20 02/12/20 14:47 76 BP Pulse Ox 02/13/20 09:02 02/13/20 07:46 146/84 92 02/13/20 04:04 138/87 94 02/13/20 00:44 02/12/20 23:50 129/69 95 02/12/20 23:43 143/79 97 02/12/20 20:12 99/58 97 02/12/20 15:39 104/43 92 02/12/20 14:47 - Physical Examination General: No Apparent Distress HEENT: Positive: PERRL Neck: Positive: trachea midline Cardiac: Positive: Reg Rate and Rhythm Lungs: Positive: Decreased Breath Sounds Neuro: Positive: Grossly Intact - Labs and Meds Cardiac Enzymes 02/13/20 Range/Units 05:23 AST 17 (5-40) units/L CBC 02/13/20 Range/Units 05:23 WBC 6.6 (4.5-11.0) K/mm3 RBC 4.53 (3.65-5.03) M/mm3 Hgb 12.8 (11.8-15.2) gm/dl Hct 38.6 (35.5-45.6) % Plt Count 214 (140-440) K/mm3 Lymph # (Auto) 1.6 (1.2-5.4) K/mm3 [place] # (Auto) 1.0 H (0.0-0.8) K/mm3 Eos # (Auto) 0.1 (0.0-0.4) K/mm3 Baso # (Auto) 0.0 (0.0-0.1) K/mm3 Comprehensive Metabolic Panel 02/13/20 Range/Units 05:23 Sodium 140 (137-145) mmol/L Potassium 3.6 (3.6-5.0) mmol/L Chloride 103.5 (98-107) mmol/L Carbon Dioxide 26 (22-30) mmol/L BUN 10 (9-20) mg/dL Creatinine 1.2 (0.8-1.3) mg/dL Glucose 104 H (75-100) mg/dL Calcium 8.7 (8.4-10.2) mg/dL AST 17 (5-40) units/L ALT 23 (7-56) units/L Alkaline Phosphatase 103 (35-129) units/L Total Protein 6.6 (6.3-8.2) g/dL Albumin 3.8 L (3.9-5) g/dL
[2020-02-13 11:37] VITALS: BP 125/72
[2020-02-13] MEDS ORDERED: FLU VACC QUAD 2020-2021 (6 months +)/PF 60 0.5 ML SYRINGE IM ONE (12:00)
== END 2020-02-13 14:00 | disposition home or self-care (01) ==
LOC: ED 01:21 → 4A 05:52
PROVIDERS: ADMIT Internal Medicine Geriatric Medicine; ATTEND Internal Medicine
DX: R07.89 Other chest pain (principal); I11.0 Hypertensive heart disease with heart failure; I50.9 Heart failure, unspecified; I25.10 Atherosclerotic heart disease of native coronary artery without angina pectoris; I48.91 Unspecified atrial fibrillation; E11.9 Type 2 diabetes mellitus without complications; E78.5 Hyperlipidemia, unspecified; J45.909 Unspecified asthma, uncomplicated; Z91.14 Patient's other noncompliance with medication regimen; Z86.711 Personal history of pulmonary embolism; Z86.718 Personal history of other venous thrombosis and embolism; Z86.73 Personal history of transient ischemic attack (TIA), and cerebral infarction without residual deficits; Z79.02 Long term (current) use of antithrombotics/antiplatelets; Z95.1 Presence of aortocoronary bypass graft; Z79.01 Long term (current) use of anticoagulants
CPT/HCPCS: 36415; 71045; 71275; 80048; 80053; 82962; 84484; 85025; 93005; 96374; 99285; G0378; J2270; Q9967

== ENCOUNTER 2020-03-20 11:14 | Emergency (ER) | payer MEDICAID ==
[2020-03-20 11:21] VITALS: BP 146/87
== END 2020-03-20 11:59 ==
LOC: ED 11:14
DX: R07.89 Other chest pain (principal); Z53.21 Procedure and treatment not carried out due to patient leaving prior to being seen by health care provider

== ENCOUNTER 2020-04-23 | Emergency (ER) | payer MEDICAID ==
[2020-04-23 01:04] LABS: Basophils % (Auto) 0.8 % (0.0-1.8); Eosinophils # (Auto) 0.1 K/mm3 (0.0-0.4); Eosinophils % (Auto) 2.1 % (0.0-4.3); Hematocrit 38.8 % (35.5-45.6); Hemoglobin 12.5 gm/dl (11.8-15.2); Lymphocytes # (Auto) 1.3 K/mm3 (1.2-5.4); Lymphocytes % (Auto) 31.3 % (13.4-35.0); Mean Corpuscular HGB Conc 32 % (32-34); Mean Corpuscular Volume 82 fl (84-94); Monocytes # (Auto) 0.7 K/mm3 (0.0-0.8); Monocytes % (Auto) 15.6 % (0.0-7.3); Platelet Count 210 K/mm3 (140-440); Red Blood Count 4.74 M/mm3 (3.65-5.03); Red Cell Distribution Width 18.6 % (13.2-15.2)
[2020-04-23 01:25] LABS: BUN/Creatinine Ratio 11; Blood Urea Nitrogen 12 mg/dL (9-20); Hemolysis Index 4
== END 2020-04-23 00:08 | disposition left against medical advice (07) ==
LOC: ED
DX: R07.89 Other chest pain (principal); Z53.21 Procedure and treatment not carried out due to patient leaving prior to being seen by health care provider
CPT/HCPCS: 36415; 80048; 84484; 85025

== ENCOUNTER 2020-04-28 00:29 | Emergency (ER) | payer MEDICAID ==
[2020-04-28 00:38] VITALS: BP 132/86
--- NOTE | 2020-04-28 01:14 | XRay Report ---
XR chest 1V ap INDICATION / CLINICAL INFORMATION: Chest Pain COMPARISON: February 12 2020 FINDINGS: SUPPORT DEVICES: None. HEART / MEDIASTINUM: No significant abnormality. LUNGS / PLEURA: Lungs are clear and not significantly changed. Costophrenic sulci are sharp. No pneu mothorax. ADDITIONAL FINDINGS: No significant additional findings. IMPRESSION: 1. No acute findings. Signer Name: Jluis Gallagher MD Signed: 04/28/2020 1:10 AM Workstation Name: [id number]
[2020-04-28] MEDS ORDERED: LIDOCAINE VISCOUS 2% 15 ML ORAL LIQD PO ONE ×2 (02:48→06:10)
[2020-04-28] MEDS ORDERED: IBUPROFEN 800 MG TAB PO ONE ×2 (02:48→06:10)
[2020-04-28] MEDS ORDERED: ALUM-MAG HYDROXIDE-SIMETHICONE 200-200-20MG/5ML ORAL LIQD 30 ML PO ONE ×2 (02:48→06:10)
[2020-04-28 03:16] LABS: Basophils % (Auto) 1.4 % (0.0-1.8); Eosinophils # (Auto) 0.1 K/mm3 (0.0-0.4); Eosinophils % (Auto) 1.6 % (0.0-4.3); Hematocrit 37.7 % (35.5-45.6); Hemoglobin 12.4 gm/dl (11.8-15.2); Lymphocytes # (Auto) 1.1 K/mm3 (1.2-5.4); Lymphocytes % (Auto) 30.3 % (13.4-35.0); Mean Corpuscular HGB Conc 33 % (32-34); Mean Corpuscular Volume 81 fl (84-94); Monocytes # (Auto) 0.6 K/mm3 (0.0-0.8); Monocytes % (Auto) 15.5 % (0.0-7.3); Platelet Count 212 K/mm3 (140-440); Red Blood Count 4.63 M/mm3 (3.65-5.03); Red Cell Distribution Width 18.5 % (13.2-15.2)
[2020-04-28 03:25] LABS: BUN/Creatinine Ratio 9; Blood Urea Nitrogen 13 mg/dL (9-20); Calcium 9.6 mg/dL (8.4-10.2); Hemolysis Index 4
--- NOTE | 2020-04-28 03:33 | Emergency Department Report ---
ED General Adult HPI - General Chief complaint: Chest Pain Stated complaint: CHEST PAIN Time Seen by Provider: 04/28/20 02:44 Source: patient Mode of arrival: Ambulatory Limitations: No Limitations - History of Present Illness Initial comments: pt is a 39 y/o aam with hx obesity, htn, [place], CVA, ans asthma, who presents for complaint of bodyaches and general malaise x 2 days, pt does no recall suspicious contact travel . . Symptoms are exacerbated by acitvity, symptoms are relieved by rest. pt denies fever or chill . - Related Data Home Medications Medication Instructions Recorded Confirmed Last Taken Nitroglycerin [Nitrostat] 0.4 mg SL Q5M PRN 08/24/17 02/12/20 Unknown Previous Rx's Medication Instructions Recorded Last Taken Type Nicotine [Habitrol] 21 mg TD DAILY #30 patch 06/18/18 Unknown Rx Sodium Phosphate,[place]-Dibasic 118 ml RC ONCE 1 Days #1 enema 06/22/18 Unknown Rx [Fleet Enema] Menthol/Camphor [[place] 1 applicatio TP QID PRN #1 tube 08/17/18 Unknown Rx Ointment] Lansoprazole [Prevacid] 30 mg PO DAILY #30 capsule. 09/06/18 Unknown Rx Menthol/Camphor [[place] 18 gm TP Q4H PRN #1 oint...g. 10/05/18 Unknown Rx Ointment] Promethazine [Phenergan] 25 mg PO Q8HR PRN #10 tab 12/13/19 Unknown Rx traMADoL [Ultram 50 MG tab] 50 mg PO Q6HR PRN #10 tablet 02/13/20 Unknown Rx Albuterol Mdi (or & Nicu Only) 2 puff IH QID PRN #8.5 gram 04/28/20 Unknown Rx [ProAir HFA Inhaler] Clopidogrel [Plavix] 75 mg PO QDAY 7 Days #30 tablet 04/28/20 Unknown Rx Docusate Sodium [Colace CAP] 100 mg PO BID #14 capsule 04/28/20 Unknown Rx Famotidine [Pepcid] 20 mg PO BID 7 Days #14 tablet 04/28/20 Unknown Rx Ferrous Gluconate [Ferrous 324 mg PO TID #20 tablet 04/28/20 Unknown Rx Gluconate 324 MG] carvediloL [Coreg] 12.5 mg PO BID #14 tablet 04/28/20 Unknown Rx Allergies Allergy/AdvReac Type Severity Reaction Status Date / Time acetaminophen [From Tylenol] Allergy Itching Verified 11/09/18 02:15 aspirin Allergy Hives Verified 11/09/18 02:15 ED Review of Systems ROS: Stated complaint: CHEST PAIN Other details as noted in HPI Constitutional: malaise. denies: chills, fever Eyes: denies: eye pain, eye discharge, vision change ENT: throat pain, congestion Respiratory: cough. denies: shortness of breath, wheezing Cardiovascular: chest pain Endocrine: no symptoms reported Gastrointestinal: denies: abdominal pain, nausea, vomiting, diarrhea Genitourinary: denies: urgency, dysuria Musculoskeletal: denies: back pain, joint swelling, arthralgia Skin: denies: rash, lesions Neurological: as per HPI, headache. denies: numbness, paresthesias, confusion, vertigo Psychiatric: denies: anxiety, depression Hematological/Lymphatic: denies: easy bleeding, easy bruising ED Past Medical Hx - Past Medical History Previous Medical History?: Yes Hx Hypertension: Yes Hx CVA: Yes (TIAs, residiu. right side weakness) Hx Heart Attack/AMI: Yes Hx Congestive Heart Failure: Yes Hx Diabetes: Yes Hx Deep Vein Thrombosis: Yes (R-leg) Hx Pulmonary Embolism: Yes Hx Asthma: Yes Additional medical history: Ulcers, a-fib. strong family hx of cardiac disorders - Surgical History Past Surgical History?: Yes Hx Coronary Stent: Yes (2 in 2019) Additional Surgical History: Stent placement - Social History Smoking Status: Never Smoker Substance Use Type: None - Medications Home Medications: Home Medications Medication Instructions Recorded Confirmed Last Taken Type Nitroglycerin [Nitrostat] 0.4 mg SL Q5M PRN 08/24/17 02/12/20 Unknown History Nicotine [Habitrol] 21 mg TD DAILY #30 patch 06/18/18 02/12/20 Unknown Rx Sodium Phosphate,[place]-Dibasic 118 ml RC ONCE 1 Days #1 enema 06/22/18 02/12/20 Unknown Rx [Fleet Enema] Menthol/Camphor [[place] 1 applicatio TP QID PRN #1 tube 08/17/18 02/12/20 Unknown Rx Ointment] Lansoprazole [Prevacid] 30 mg PO DAILY #30 capsule. 09/06/18 02/12/20 Unknown Rx Menthol/Camphor [[place] 18 gm TP Q4H PRN #1 oint...g. 10/05/18 02/12/20 Unknown Rx Ointment] Promethazine [Phenergan] 25 mg PO Q8HR PRN #10 tab 12/13/19 02/12/20 Unknown Rx traMADoL [Ultram 50 MG tab] 50 mg PO Q6HR PRN #10 tablet 02/13/20 Unknown Rx Albuterol Mdi (or & Nicu Only) 2 puff IH QID PRN #8.5 gram 04/28/20 Unknown Rx [ProAir HFA Inhaler] Clopidogrel [Plavix] 75 mg PO QDAY 7 Days #30 tablet 04/28/20 Unknown Rx Docusate Sodium [Colace CAP] 100 mg PO BID #14 capsule 04/28/20 Unknown Rx Famotidine [Pepcid] 20 mg PO BID 7 Days #14 tablet 04/28/20 Unknown Rx Ferrous Gluconate [Ferrous 324 mg PO TID #20 tablet 04/28/20 Unknown Rx Gluconate 324 MG] carvediloL [Coreg] 12.5 mg PO BID #14 tablet 04/28/20 Unknown Rx ED Physical Exam - General Limitations: No Limitations General appearance: alert, in no apparent distress - Head Head exam: Present: atraumatic, normocephalic - Eye Eye exam: Present: normal appearance - ENT ENT exam: Present: normal orophraynx, mucous membranes moist, TM's normal bilaterally, normal external ear exam - Neck Neck exam: Present: normal inspection - Respiratory Respiratory exam: Present: normal lung sounds bilaterally, chest wall tenderness. Absent: respiratory distress, wheezes, stridor - Cardiovascular Cardiovascular Exam: Present: regular rate, normal rhythm, normal heart sounds. Absent: systolic murmur, diastolic murmur, rubs, gallop - GI/Abdominal GI/Abdominal exam: Present: soft, normal bowel sounds. Absent: distended, tenderness, guarding, rebound, bruit, hernia - Rectal Rectal exam: Present: deferred. Absent: black stool, bloody stool - Extremities Exam Extremities exam: Present: normal inspection, full ROM, normal capillary refill. Absent: tenderness - Back Exam Back exam: Present: normal inspection, full ROM. Absent: tenderness, CVA tenderness (R), vertebral tenderness - Neurological Exam Neurological exam: Present: alert, oriented X3, CN II-XII intact, normal gait, reflexes normal. Absent: motor sensory deficit - Expanded Neurological Exam Expanded Patient oriented to: Present: person, place, time Speech: Present: fluid speech Cranial nerves: EOM's Intact: Normal, Gag Reflex: Normal Motor strength exam: RUE: 5, LUE: 5, RLE: 5, LLE: 5 Best Eye Response ([place]): (4) open spontaneously Best Motor Response ([place]): (6) obeys commands Best Verbal Response ([place]): (5) oriented [place] Total: 15 - Psychiatric Psychiatric exam: Present: normal affect, normal mood - Skin Skin exam: Present: warm, dry, intact, normal color. Absent: rash ED Course Vital Signs 04/28/20 00:35 Temperature 98.0 F Pulse Rate 107 H Respiratory 18 Rate Blood Pressure 132/86 O2 Sat by Pulse 97 Oximetry ED Medical Decision Making - Lab Data Result diagrams: 04/28/20 01:06 04/28/20 01:06 Labs 04/28/20 04/28/20 04/28/20 01:06 01:06 04:01 WBC 3.7 L RBC 4.63 Hgb 12.4 Hct 37.7 MCV 81 L MCH 27 L MCHC 33 RDW 18.5 H Plt Count 212 Lymph % (Auto) 30.3 Harvey % (Auto) 15.5 H Eos % (Auto) 1.6 Baso % (Auto) 1.4 Lymph # (Auto) 1.1 L Harvey # (Auto) 0.6 Eos # (Auto) 0.1 Baso # (Auto) 0.0 Seg Neutrophils % 51.2 Seg Neutrophils # 1.9 Sodium 143 Potassium 4.2 Chloride 104.9 Carbon Dioxide 23 Anion Gap 19 BUN 13 Creatinine 1.5 H Estimated GFR > 60 BUN/Creatinine Ratio 9 Glucose 93 Calcium 9.6 Troponin T < 0.010 < 0.010 - EKG Data EKG shows normal: sinus rhythm Rate: normal - EKG Data When compared to previous EKG there are: changes noted Interpretation: normal EKG (EKLG m ed ) - Radiology Data Radiology results: report reviewed, image reviewed Findings [facility] [address] [place] [address] XRay Report Signed Patient: DYAN SHEFFIELD JR MR#: [id number] : 1980 Acct:[id number] Age/Sex: 39 / M ADM Date: 04/28/20 Loc: ED Attending Dr: Ordering Physician: YARELY KLEIN MD Date of Service: 04/28/20 Procedure(s): XR chest 1V ap Accession Number(s): [id number] cc: ED MD ERNIE Fluoro Time In Minutes: XR chest 1V ap INDICATION / CLINICAL INFORMATION: Chest Pain COMPARISON: February 12 2020 FINDINGS: SUPPORT DEVICES: None. HEART / MEDIASTINUM: No significant abnormality. LUNGS / PLEURA: Lungs are clear and not significantly changed. Costophrenic sulci are sharp. No pneumothorax. ADDITIONAL FINDINGS: No significant additional findings. IMPRESSION: 1. No acute findings. Signer Name: Jluis Gallagher MD Signed: 04/28/2020 1:10 AM Workstation Name: [id number] Transcribed By: CS Dictated By: Jluis Gallagher MD Electronically Authenticated By: Jluis Gallagher MD Signed Date/Time: 04/28/20109 DD/ 9 TD/TT: - Medical Decision Making EKG NSR no ST Elevated [place] borderline T Wave abnormalities , cxr: normal in infiltrate no opacities, Trop: <0.01 x 2, labs normal, Heart score is 1 for hx , symptoms are improved wtih GI cocktail and NSAIDS, there is no fever , no sob , This is not an [place], not CHF , not covid, pt advises that he has pcp at [facility]. Will obtain medication refills in 2 days. Will dc'd to home with refill for albuterol MDI as requested. Critical care attestation.: If time is entered above; I have spent that time in minutes in the direct care of this critically ill patient, excluding procedure time. ED Disposition Clinical Impression: Chest pain Qualifiers: Chest pain type: unspecified Qualified Code(s): R07.9 - Chest pain, unspecified Disposition: DC-01 TO HOME OR SELFCARE Is pt being admited?: No Does the pt Need Aspirin: No Condition: Stable Instructions: Chest Pain (ED), Nonspecific Chest Pain, Adult Prescriptions: Docusate Sodium [Colace CAP] 100 mg PO BID #14 capsule carvediloL [Coreg] 12.5 mg PO BID #14 tablet Ferrous Gluconate [Ferrous Gluconate 324 MG] 324 mg PO TID #20 tablet Famotidine [Pepcid] 20 mg PO BID 7 Days #14 tablet Clopidogrel [Plavix] 75 mg PO QDAY 7 Days #30 tablet Albuterol Mdi (or & Nicu Only) [ProAir HFA Inhaler] 2 puff IH QID PRN #8.5 gram PRN Reason: Shortness Of Breath Referrals: ASHUTOSH PINTO MD [Staff Physician] - 3-5 Days Forms: Work/School Release Form(ED) Time of Disposition: 05:54
== END 2020-04-28 06:12 | disposition home or self-care (01) ==
LOC: ED 00:29
DX: R07.89 Other chest pain (principal); I25.2 Old myocardial infarction; I11.0 Hypertensive heart disease with heart failure; I50.9 Heart failure, unspecified; E11.9 Type 2 diabetes mellitus without complications; J45.909 Unspecified asthma, uncomplicated; Z98.890 Other specified postprocedural states; Z79.899 Other long term (current) drug therapy; Z88.6 Allergy status to analgesic agent; Z88.8 Allergy status to other drugs, medicaments and biological substances
CPT/HCPCS: 36415; 71045; 80048; 84484; 85025; 93005

== ENCOUNTER 2020-05-10 00:15 | Emergency (ER) | payer MEDICAID ==
[2020-05-10 00:24] VITALS: BP 152/88
--- NOTE | 2020-05-10 00:26 | Emergency Department Report ---
Blank Doc - Documentation Documentation: 39-year-old male that presents with chest pain shortness of breath and bilateral leg swelling. Patient has significant past medical history of cardiac. 1- This initial assessment/diagnostic orders/clinical plan/ treatment(s) is/are subject to change based on pt's health status, clinical progression and re- assessment by fellow clinical providers in the ED. Further treatment and workup at subsequent clinical provers discretion. Patient/guardians urged not to elope from ED as their condition may be serious if not clinically assessed and managed. 2-cardiac work-up
--- NOTE | 2020-05-10 01:28 | XRay Report ---
CHEST 2 VIEWS 0102 INDICATION / CLINICAL INFORMATION: Chest Pain COMPARISON: 04/28/2020 FINDINGS: SUPPORT DEVICES: None. HEART / MEDIASTINUM: No significant abnormality. LUNGS / PLEURA: No significant pulmonary or pleural abnormality. No pneumothorax. ADDITIONAL FINDINGS: No significant additional findings. IMPRESSION: No significant acute abnormality Signer Name: German Avendaño MD Signed: 05/10/2020 1:24 AM Workstation Name: [id number]
[2020-05-10 01:34] LABS: Basophils % (Auto) 1.2 % (0.0-1.8); Eosinophils # (Auto) 0.1 K/mm3 (0.0-0.4); Eosinophils % (Auto) 1.7 % (0.0-4.3); Hematocrit 38.4 % (35.5-45.6); Hemoglobin 12.3 gm/dl (11.8-15.2); Lymphocytes # (Auto) 1.2 K/mm3 (1.2-5.4); Lymphocytes % (Auto) 29.9 % (13.4-35.0); Mean Corpuscular HGB Conc 32 % (32-34); Mean Corpuscular Volume 83 fl (84-94); Monocytes # (Auto) 0.6 K/mm3 (0.0-0.8); Monocytes % (Auto) 13.8 % (0.0-7.3); Platelet Count 205 K/mm3 (140-440); Red Blood Count 4.64 M/mm3 (3.65-5.03); Red Cell Distribution Width 18.9 % (13.2-15.2)
[2020-05-10 01:51] LABS: Alanine Aminotransferase 26 units/L (7-56); Albumin 4.2 g/dL (3.9-5); BUN/Creatinine Ratio 11; Blood Urea Nitrogen 15 mg/dL (9-20); Calcium 9.1 mg/dL (8.4-10.2); Hemolysis Index 2
[2020-05-10 02:22] LABS: INR 1.14 (0.87-1.13); Partial Thromboplastin Time 26.4 Sec. (24.2-36.6)
--- NOTE | 2020-05-10 10:44 | Emergency Department Report ---
ED General Adult HPI - General Chief complaint: Chest Pain Stated complaint: CHEST PAIN DIFFICULTY WALKING Time Seen by Provider: 05/10/20 00:26 Source: patient Mode of arrival: Ambulatory Limitations: No Limitations - History of Present Illness Initial comments: Patient is a 39-year-old male who presents emergency room complaints of right- sided chest pain that began yesterday. He states that it is a constant sharp pain. He denies any radiation of the pain. He denies any fever, cough, shortness of breath, nausea, vomiting, diaphoresis. He states that his right leg also gave out on him yesterday but he is currently ambulating. He denies any leg swelling. He denies any numbness of the leg. He states he feels some mild pain in his right hip. he has chronically been seen for right hip pain and right leg hemiparesis. He has a reported past medical history of asthma, hypertension, DM, TIA, CHF. Patient has had multiple cardiac work-ups in this emergency department. He was admitted in January [address] angio at that time which was negative for PE and had a cardiology consult, please see the cardiology note below. Dr. Gong cardiology consult note on 02/12/2020: This patient is a 39-year-old man admitted with atypical chest pain. He describes poorly characterized, nonexertional chest pain with no associated features. He has a long history of atypical chest pain. He has had extensive cardiac chest pain work-up and multiple admissions over the past several years. This culminated in a cardiac catheterization done at [facility] in 2013 that documented angiographically normal coronary arteries. There is no history of documented coronary artery disease or coronary stents. It to be not ed that his medication profile includes Plavix 75 mg daily, this is used as a substitute for his aspirin allergy and intended for primary prevention. Following his angiographic procedure in 2013, he has had multiple thallium stress test that have all been negative. Serial echocardiograms have documented normal left ventricular systolic function. On this presentation, his ECG is sinus rhythm at 100, normal ECG with no ST or T wave abnormalities. Cardiac troponin levels x2 were normal. - Related Data Home Medications Medication Instructions Recorded Confirmed Last Taken Nitroglycerin [Nitrostat] 0.4 mg SL Q5M PRN 08/24/17 02/12/20 Unknown Previous Rx's Medication Instructions Recorded Last Taken Type Nicotine [Habitrol] 21 mg TD DAILY #30 patch 06/18/18 Unknown Rx Sodium Phosphate,Bosque-Dibasic 118 ml RC ONCE 1 Days #1 enema 06/22/18 Unknown Rx [Fleet Enema] Menthol/Camphor [[place] 1 applicatio TP QID PRN #1 tube 08/17/18 Unknown Rx Ointment] Lansoprazole [Prevacid] 30 mg PO DAILY #30 capsule. 09/06/18 Unknown Rx Menthol/Camphor [[place] 18 gm TP Q4H PRN #1 oint...g. 10/05/18 Unknown Rx Ointment] Promethazine [Phenergan] 25 mg PO Q8HR PRN #10 tab 12/13/19 Unknown Rx traMADoL [Ultram 50 MG tab] 50 mg PO Q6HR PRN #10 tablet 02/13/20 Unknown Rx Albuterol Mdi (or & Nicu Only) 2 puff IH QID PRN #8.5 gram 04/28/20 Unknown Rx [ProAir HFA Inhaler] Clopidogrel [Plavix] 75 mg PO QDAY 7 Days #30 tablet 04/28/20 Unknown Rx Docusate Sodium [Colace CAP] 100 mg PO BID #14 capsule 04/28/20 Unknown Rx Famotidine [Pepcid] 20 mg PO BID 7 Days #14 tablet 04/28/20 Unknown Rx Ferrous Gluconate [Ferrous 324 mg PO TID #20 tablet 04/28/20 Unknown Rx Gluconate 324 MG] carvediloL [Coreg] 12.5 mg PO BID #14 tablet 04/28/20 Unknown Rx Allergies Allergy/AdvReac Type Severity Reaction Status Date / Time acetaminophen [From Tylenol] Allergy Itching Verified 11/09/18 02:15 aspirin Allergy Hives Verified 11/09/18 02:15 ED Review of Systems ROS: Stated complaint: CHEST PAIN DIFFICULTY WALKING Other details as noted in HPI Comment: All other systems reviewed and negative ED Past Medical Hx - Past Medical History Previous Medical History?: Yes Hx Hypertension: Yes Hx CVA: Yes (TIAs, residiu. right side weakness) Hx Heart Attack/AMI: Yes Hx Congestive Heart Failure: Yes Hx Diabetes: Yes Hx Deep Vein Thrombosis: Yes (R-leg) Hx Pulmonary Embolism: Yes Hx Asthma: Yes Additional medical history: Ulcers, a-fib. strong family hx of cardiac disorders - Surgical History Past Surgical History?: Yes Hx Coronary Stent: Yes (2 in 2019) Additional Surgical History: Stent placement - Social History Smoking Status: Never Smoker Substance Use Type: None - Medications Home Medications: Home Medications Medication Instructions Recorded Confirmed Last Taken Type Nitroglycerin [Nitrostat] 0.4 mg SL Q5M PRN 08/24/17 02/12/20 Unknown History Nicotine [Habitrol] 21 mg TD DAILY #30 patch 06/18/18 02/12/20 Unknown Rx Sodium Phosphate,Bosque-Dibasic 118 ml RC ONCE 1 Days #1 enema 06/22/18 02/12/20 Unknown Rx [Fleet Enema] Menthol/Camphor [[place] 1 applicatio TP QID PRN #1 tube 08/17/18 02/12/20 Unknown Rx Ointment] Lansoprazole [Prevacid] 30 mg PO DAILY #30 capsule. 09/06/18 02/12/20 Unknown Rx Menthol/Camphor [[place] 18 gm TP Q4H PRN #1 oint...g. 10/05/18 02/12/20 Unknown Rx Ointment] Promethazine [Phenergan] 25 mg PO Q8HR PRN #10 tab 12/13/19 02/12/20 Unknown Rx traMADoL [Ultram 50 MG tab] 50 mg PO Q6HR PRN #10 tablet 02/13/20 Unknown Rx Albuterol Mdi (or & Nicu Only) 2 puff IH QID PRN #8.5 gram 04/28/20 Unknown Rx [ProAir HFA Inhaler] Clopidogrel [Plavix] 75 mg PO QDAY 7 Days #30 tablet 04/28/20 Unknown Rx Docusate Sodium [Colace CAP] 100 mg PO BID #14 capsule 04/28/20 Unknown Rx Famotidine [Pepcid] 20 mg PO BID 7 Days #14 tablet 04/28/20 Unknown Rx Ferrous Gluconate [Ferrous 324 mg PO TID #20 tablet 04/28/20 Unknown Rx Gluconate 324 MG] carvediloL [Coreg] 12.5 mg PO BID #14 tablet 04/28/20 Unknown Rx ED Physical Exam - General Limitations: No Limitations General appearance: alert, in no apparent distress - Head Head exam: Present: atraumatic, normocephalic - Eye Eye exam: Present: normal appearance - ENT ENT exam: Present: mucous membranes moist - Respiratory Respiratory exam: Present: normal lung sounds bilaterally. Absent: respiratory distress, wheezes, rales, rhonchi, stridor, chest wall tenderness, accessory muscle use, decreased breath sounds, prolonged expiratory - Cardiovascular Cardiovascular Exam: Present: regular rate, normal rhythm, normal heart sounds. Absent: systolic murmur, diastolic murmur, rubs, gallop - Extremities Exam Extremities exam: Present: normal inspection, full ROM, normal capillary refill, other (FROM of the BLE, no edema, muscle strength 5/5 in the BLE, no calf ttp, strong pulses, no skin changes, neurovasculalry intact). Absent: tenderness, pedal edema, joint swelling, calf tenderness - Neurological Exam Neurological exam: Present: alert, oriented X3, CN II-XII intact, normal gait. Absent: motor sensory deficit - Psychiatric Psychiatric exam: Present: normal affect, normal mood - Skin Skin exam: Present: warm, dry, intact ED Course Vital Signs 05/10/20 00:20 Temperature 98.5 F Pulse Rate 109 H Respiratory 18 Rate Blood Pressure 152/88 O2 Sat by Pulse 97 Oximetry ED Medical Decision Making - Lab Data Result diagrams: 05/10/20 00:56 05/10/20 00:56 Lab Results 05/10/20 05/10/20 05/10/20 Range/Units 00:56 00:56 00:56 WBC 4.1 L (4.5-11.0) K/mm3 RBC 4.64 (3.65-5.03) M/mm3 Hgb 12.3 (11.8-15.2) gm/dl Hct 38.4 (35.5-45.6) % MCV 83 L (84-94) fl MCH 27 L (28-32) pg MCHC 32 (32-34) % RDW 18.9 H (13.2-15.2) % Plt Count 205 (140-440) K/mm3 Lymph % (Auto) 29.9 (13.4-35.0) % [place] % (Auto) 13.8 H (0.0-7.3) % Eos % (Auto) 1.7 (0.0-4.3) % Baso % (Auto) 1.2 (0.0-1.8) % Lymph # (Auto) 1.2 (1.2-5.4) K/mm3 [place] # (Auto) 0.6 (0.0-0.8) K/mm3 Eos # (Auto) 0.1 (0.0-0.4) K/mm3 Baso # (Auto) 0.0 (0.0-0.1) K/mm3 Seg Neutrophils % 53.4 (40.0-70.0) % Seg Neutrophils # 2.2 (1.8-7.7) K/mm3 PT 14.4 (12.2-14.9) Sec. INR 1.14 H (0.87-1.13) APTT 26.4 (24.2-36.6) Sec. Sodium 143 (137-145) mmol/L Potassium 4.0 (3.6-5.0) mmol/L Chloride 107.3 H (98-107) mmol/L Carbon Dioxide 25 (22-30) mmol/L Anion Gap 15 mmol/L BUN 15 (9-20) mg/dL Creatinine 1.4 H (0.8-1.3) mg/dL Estimated GFR > 60 ml/min BUN/Creatinine Ratio 11 % Glucose 99 (75-100) mg/dL Calcium 9.1 (8.4-10.2) mg/dL Total Bilirubin 0.30 (0.1-1.2) mg/dL AST 27 (5-40) units/L ALT 26 (7-56) units/L Alkaline Phosphatase 111 (35-129) units/L Troponin T < 0.010 (0.00-0.029) ng/mL NT-Pro-B Natriuret Pep (0-450) pg/mL Total Protein 6.8 (6.3-8.2) g/dL Albumin 4.2 (3.9-5) g/dL Albumin/Globulin Ratio 1.6 % 05/10/20 05/10/20 Range/Units 00:56 04:12 WBC (4.5-11.0) K/mm3 RBC (3.65-5.03) M/mm3 Hgb (11.8-15.2) gm/dl Hct (35.5-45.6) % MCV (84-94) fl MCH (28-32) pg MCHC (32-34) % RDW (13.2-15.2) % Plt Count (140-440) K/mm3 Lymph % (Auto) (13.4-35.0) % [place] % (Auto) (0.0-7.3) % Eos % (Auto) (0.0-4.3) % Baso % (Auto) (0.0-1.8) % Lymph # (Auto) (1.2-5.4) K/mm3 [place] # (Auto) (0.0-0.8) K/mm3 Eos # (Auto) (0.0-0.4) K/mm3 Baso # (Auto) (0.0-0.1) K/mm3 Seg Neutrophils % (40.0-70.0) % Seg Neutrophils # (1.8-7.7) K/mm3 PT (12.2-14.9) Sec. INR (0.87-1.13) APTT (24.2-36.6) Sec. Sodium (137-145) mmol/L Potassium (3.6-5.0) mmol/L Chloride (98-107) mmol/L Carbon Dioxide (22-30) mmol/L Anion Gap mmol/L BUN (9-20) mg/dL Creatinine (0.8-1.3) mg/dL Estimated GFR ml/min BUN/Creatinine Ratio % Glucose (75-100) mg/dL Calcium (8.4-10.2) mg/dL Total Bilirubin (0.1-1.2) mg/dL AST (5-40) units/L ALT (7-56) units/L Alkaline Phosphatase (35-129) units/L Troponin T < 0.010 (0.00-0.029) ng/mL NT-Pro-B Natriuret Pep 27.74 (0-450) pg/mL Total Protein (6.3-8.2) g/dL Albumin (3.9-5) g/dL Albumin/Globulin Ratio % - EKG Data EKG shows normal: sinus rhythm, axis, intervals, QRS complexes, ST-T waves Rate: normal - Radiology Data Radiology results: report reviewed Chest x-ray with no significant acute abnormality - Medical Decision Making Patient is a 39-year-old male who presents emergency room complaints of right- sided chest pain that began yesterday. He states that it is a constant sharp pain. He denies any radiation of the pain. He denies any fever, cough, shortness of breath, nausea, vomiting, diaphoresis. He states that his right leg also gave out on him yesterday but he is currently ambulating. He denies any leg swelling. He denies any numbness of the leg. He states he feels some mild pain in his right hip. he has chronically been seen for right hip pain and right leg hemiparesis. He has a reported past medical history of asthma, hypertension, DM, TIA, CHF. Patient has had multiple cardiac work-ups in this emergency department. He was admitted in January [address] angio at that time which was negative for PE and had a cardiology consult, please see the cardiology note below. Dr. Gong cardiology consult note on 02/12/2020: This patient is a 39-year-old man admitted with atypical chest pain. He describes poorly characterized, nonexertional chest pain with no associated features. He has a long history of atypical chest pain. He has had extensive cardiac chest pain work-up and multiple admissions over the past several years. This culminated in a cardiac catheterization done at [facility] in 2013 that documented angiographically normal coronary arteries. There is no history of documented coronary artery disease or coronary stents. It to be noted that his medication profile includes Plavix 75 mg daily, this is used as a substitute for his aspirin allergy and intended for primary prevention. Following his angiographic procedure in 2013, he has had multiple thallium stress test that have all been negative. Serial echocardiograms have documented normal left ventricular systolic function. On this presentation, his ECG is sinus rhythm at 100, normal ECG with no ST or T wave abnormalities. Cardiac troponin levels x2 were normal. on exam: FROM of the BLE, no edema, muscle strength 5/5 in the BLE, no calf ttp, strong pulses, no skin changes, neurovasculalry intact. Patient has no clinical signs of muscle weakness, no clinical signs of DVT, no clinical signs of DVT or fluid overload. Chest x-ray with no acute process. EKG is within normal limits. Labs are stable. Troponin is negative x2. low risk based on wells criteria for PE, patient has had recent CT angio chest without evidence of PE, PE unlikely. BNP is normal. Patient does not meet criteria for inpatient cardiology work-up at this time. Patient be referred to outpatient cardiology and to his primary care doctor. His chest pain appears atypical in nature, does not appear consistent with ACS, EKG is normal, troponin is negative x2. Advised to return to the emergency room for new or worsening symptoms. Dis cussed return precautions. Critical care attestation.: If time is entered above; I have spent that time in minutes in the direct care of this critically ill patient, excluding procedure time. ED Disposition Clinical Impression: Atypical chest pain, Right hip pain, Right leg weakness Disposition: DC- TO HOME OR SELFCARE Is pt being admited?: No Does the pt Need Aspirin: No Condition: Stable Instructions: Chest Pain (ED) Additional Instructions: Please follow-up with your primary care doctor. 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 Return to emergency room for any new or worsening symptoms. Referrals: PRIMARY CARE,MD [Primary Care Provider] - 2-3 Days your, interior wall assembler [Other] - 2-3 Days Forms: Work/School Release Form(ED) Time of Disposition: 10:48 Print Language: PORTUGUESE
== END 2020-05-10 02:00 | disposition home or self-care (01) ==
LOC: ED 00:15
DX: M25.551 Pain in right hip (principal); R07.89 Other chest pain; R53.1 Weakness; I25.2 Old myocardial infarction; I11.0 Hypertensive heart disease with heart failure; I50.9 Heart failure, unspecified; E11.9 Type 2 diabetes mellitus without complications; J45.909 Unspecified asthma, uncomplicated; I48.91 Unspecified atrial fibrillation; Z98.890 Other specified postprocedural states; Z79.899 Other long term (current) drug therapy; Z86.73 Personal history of transient ischemic attack (TIA), and cerebral infarction without residual deficits; Z88.8 Allergy status to other drugs, medicaments and biological substances; Z95.5 Presence of coronary angioplasty implant and graft
CPT/HCPCS: 36415; 71046; 80053; 83880; 84484; 85025; 85610; 85730; 93005

== ENCOUNTER 2020-06-08 01:07 | Emergency (ER) | payer MEDICAID ==
[2020-06-08 03:12] LABS: Eosinophils # (Auto) 0.1 K/mm3 (0.0-0.4); Eosinophils % (Auto) 2.9 % (0.0-4.3); Hematocrit 39.4 % (35.5-45.6); Hemoglobin 12.6 gm/dl (11.8-15.2); Lymphocytes # (Auto) 1.2 K/mm3 (1.2-5.4); Lymphocytes % (Auto) 31.4 % (13.4-35.0); Mean Corpuscular HGB Conc 32 % (32-34); Mean Corpuscular Volume 82 fl (84-94); Monocytes # (Auto) 0.4 K/mm3 (0.0-0.8); Monocytes % (Auto) 11.7 % (0.0-7.3); Platelet Count 207 K/mm3 (140-440); Red Blood Count 4.83 M/mm3 (3.65-5.03); Red Cell Distribution Width 17.8 % (13.2-15.2)
[2020-06-08 03:30] LABS: Alanine Aminotransferase 24 units/L (7-56); Albumin 4.3 g/dL (3.9-5); BUN/Creatinine Ratio 13; Blood Urea Nitrogen 17 mg/dL (9-20); Hemolysis Index 8
--- NOTE | 2020-06-08 03:31 | XRay Report ---
CHEST 2 VIEWS INDICATION / CLINICAL INFORMATION: chest pain, shortness of breath, hx of CHF. COMPARISON: 05/10/2020 FINDINGS: SUPPORT DEVICES: None. HEART / MEDIASTINUM: No significant abnormality. LUNGS / PLEURA: No significant pulmonary or pleural abnormality. No pneumothorax. ADDITIONAL FINDINGS: No significant additional findings. IMPRESSION: 1. No acute findings. Signer Name: Rk Meza MD Signed: 06/08/2020 3:27 AM Workstation Name: [id number]
--- NOTE | 2020-06-08 07:20 | Emergency Department Report ---
ED Chest Pain HPI - General Chief Complaint: Chest Pain Stated Complaint: CHEST PAIN Time Seen by Provider: 06/08/20 06:45 Source: patient, old records reviewed Mode of arrival: Ambulatory Limitations: Physical Limitation - History of Present Illness Initial Comments: 39-year-old male with a past medical history of CVA with residual right-sided deficits, CHF, diabetes, CAD, hypertension, ulcers, atrial fibrillation, and "2 stents in 2019" presents to the hospital complaints of right-sided chest pain x4 to 5 days. Pain is rated 10/10 in intensity sharp, intermittent, worse with inspiration and with occasional movement. Positive so she shortness of breath secondary to pain. Patient has had similar pain in the past. As per medical record patient was actually seen here in April for similar type of pain. Patient was admitted here in January and had a negative CT angiogram chest for pulmonary embolism and had a note from cardiology stating that patient does not have known CAD with history of normal cardiac cath and no stents seen on previ ous cardiac work-up. Patient states he takes "3 blood thinners" he thinks that he takes Plavix, Coumadin, and another blood thinner but he cannot recall the name. Severity scale (0 -10): 10 - Related Data Home Medications Medication Instructions Recorded Confirmed Last Taken Nitroglycerin [Nitrostat] 0.4 mg SL Q5M PRN 08/24/17 02/12/20 Unknown Previous Rx's Medication Instructions Recorded Last Taken Type Nicotine [Habitrol] 21 mg TD DAILY #30 patch 06/18/18 Unknown Rx Sodium Phosphate,[place]-Dibasic 118 ml RC ONCE 1 Days #1 enema 06/22/18 Unknown Rx [Fleet Enema] Menthol/Camphor [[place] 1 applicatio TP QID PRN #1 tube 08/17/18 Unknown Rx Ointment] Lansoprazole [Prevacid] 30 mg PO DAILY #30 capsule. 09/06/18 Unknown Rx Menthol/Camphor [[place] 18 gm TP Q4H PRN #1 oint...g. 10/05/18 Unknown Rx Ointment] Promethazine [Phenergan] 25 mg PO Q8HR PRN #10 tab 12/13/19 Unknown Rx traMADoL [Ultram 50 MG tab] 50 mg PO Q6HR PRN #10 tablet 02/13/20 Unknown Rx Albuterol Mdi (or & Nicu Only) 2 puff IH QID PRN #8.5 gram 04/28/20 Unknown Rx [ProAir HFA Inhaler] Clopidogrel [Plavix] 75 mg PO QDAY 7 Days #30 tablet 04/28/20 Unknown Rx Docusate Sodium [Colace CAP] 100 mg PO BID #14 capsule 04/28/20 Unknown Rx Famotidine [Pepcid] 20 mg PO BID 7 Days #14 tablet 04/28/20 Unknown Rx Ferrous Gluconate [Ferrous 324 mg PO TID #20 tablet 04/28/20 Unknown Rx Gluconate 324 MG] carvediloL [Coreg] 12.5 mg PO BID #14 tablet 04/28/20 Unknown Rx traMADoL [Ultram 50 MG tab] 50 mg PO Q6HR PRN #14 tablet 06/08/20 Unknown Rx Allergies Allergy/AdvReac Type Severity Reaction Status Date / Time acetaminophen [From Tylenol] Allergy Itching Verified 11/09/18 02:15 aspirin Allergy Hives Verified 11/09/18 02:15 Heart Score - HEART Score History: Slightly suspicious EKG: Normal Age: < 45 Risk factors: > 3 risk factors or hx of atherosclerotic disease Troponin: < normal limit HEART Score: 2 ED Review of Systems ROS: Stated complaint: CHEST PAIN Other details as noted in HPI Comment: All other systems reviewed and negative ED Past Medical Hx - Past Medical History Previous Medical History?: Yes Hx Hypertension: Yes Hx CVA: Yes (TIAs, residiu. right side weakness) Hx Heart Attack/AMI: Yes Hx Congestive Heart Failure: Yes Hx Diabetes: Yes Hx Deep Vein Thrombosis: Yes (R-leg) Hx Pulmonary Embolism: Yes Hx Asthma: Yes Additional medical history: Ulcers, a-fib. strong family hx of cardiac disorders - Surgical History Past Surgical History?: Yes Hx Coronary Stent: Yes (2 in 2019) Additional Surgical History: Stent placement - Social History Smoking Status: Never Smoker Substance Use Type: None - Medications Home Medications: Home Medications Medication Instructions Recorded Confirmed Last Taken Type Nitroglycerin [Nitrostat] 0.4 mg SL Q5M PRN 08/24/17 02/12/20 Unknown History Nicotine [Habitrol] 21 mg TD DAILY #30 patch 06/18/18 02/12/20 Unknown Rx Sodium Phosphate,[place]-Dibasic 118 ml RC ONCE 1 Days #1 enema 06/22/18 02/12/20 Unknown Rx [Fleet Enema] Menthol/Camphor [[place] 1 applicatio TP QID PRN #1 tube 08/17/18 02/12/20 Unknown Rx Ointment] Lansoprazole [Prevacid] 30 mg PO DAILY #30 capsule. 09/06/18 02/12/20 Unknown Rx Menthol/Camphor [[place] 18 gm TP Q4H PRN #1 oint...g. 10/05/18 02/12/20 Unknown Rx Ointment] Promethazine [Phenergan] 25 mg PO Q8HR PRN #10 tab 12/13/19 02/12/20 Unknown Rx traMADoL [Ultram 50 MG tab] 50 mg PO Q6HR PRN #10 tablet 02/13/20 Unknown Rx Albuterol Mdi (or & Nicu Only) 2 puff IH QID PRN #8.5 gram 04/28/20 Unknown Rx [ProAir HFA Inhaler] Clopidogrel [Plavix] 75 mg PO QDAY 7 Days #30 tablet 04/28/20 Unknown Rx Docusate Sodium [Colace CAP] 100 mg PO BID #14 capsule 04/28/20 Unknown Rx Famotidine [Pepcid] 20 mg PO BID 7 Days #14 tablet 04/28/20 Unknown Rx Ferrous Gluconate [Ferrous 324 mg PO TID #20 tablet 04/28/20 Unknown Rx Gluconate 324 MG] carvediloL [Coreg] 12.5 mg PO BID #14 tablet 04/28/20 Unknown Rx traMADoL [Ultram 50 MG tab] 50 mg PO Q6HR PRN #14 tablet 06/08/20 Unknown Rx ED Physical Exam - General Limitations: Physical Limitation - Other Other exam information: General: No acute distress Head: Atraumatic Eyes: normal appearance ENT: Moist mucous membranes Neck: Normal appearance, no midline tenderness Chest: Clear to auscultation bilaterally, chest wall nontender CV: Regular rate and rhythm Abdomen: Soft, normal bowel sounds, nontender, nondistended, no rebound or guarding Back: Normal inspection Extremity: Trace pitting lower extremity edema, no leg asymmetry, no isolated calf tenderness Neuro: Alert O x 3, no facial asymmetry, speech clear, 4+ right upper extremity and lower extremity strength Psych: Appropriate behavior Skin: No rash ED Course Vital Signs 06/08/20 06/08/20 06/08/20 02:31 07:07 07:09 Temperature 98.1 F 97.9 F Pulse Rate 86 79 Respiratory 16 18 18 Rate Blood Pressure 137/69 Blood Pressure 117/67 [Right] O2 Sat by Pulse 97 96 Oximetry 06/08/20 06/08/20 06/08/20 07:50 08:17 09:37 Temperature Pulse Rate 70 68 78 Respiratory 16 16 16 Rate Blood Pressure Blood Pressure 111/68 129/81 119/73 [Right] O2 Sat by Pulse 98 95 100 Oximetry KIANNA score - Kianna Score Age > 65: (0) No Aspirin use within the Past 7 Days: (0) No 3 or more CAD Risk Factors: (1) Yes 2 or more Angina events in past 24 hrs: (0) No Known CAD with more than 50% Stenosis: (0) No Elevated Cardiac Markers: (0) No ST Deviation Greater than 0.5mm: (0) No KIANNA Score: 1 ED Medical Decision Making - Lab Data Result diagrams: 06/08/20 02:44 06/08/20 02:44 Lab Results 06/08/20 06/08/20 06/08/20 Range/Units 02:44 02:44 05:38 WBC 3.7 L (4.5-11.0) K/mm3 RBC 4.83 (3.65-5.03) M/mm3 Hgb 12.6 (11.8-15.2) gm/dl Hct 39.4 (35.5-45.6) % MCV 82 L (84-94) fl MCH 26 L (28-32) pg MCHC 32 (32-34) % RDW 17.8 H (13.2-15.2) % Plt Count 207 (140-440) K/mm3 Lymph % (Auto) 31.4 (13.4-35.0) % [place] % (Auto) 11.7 H (0.0-7.3) % Eos % (Auto) 2.9 (0.0-4.3) % Baso % (Auto) 1.0 (0.0-1.8) % Lymph # (Auto) 1.2 (1.2-5.4) K/mm3 [place] # (Auto) 0.4 (0.0-0.8) K/mm3 Eos # (Auto) 0.1 (0.0-0.4) K/mm3 Baso # (Auto) 0.0 (0.0-0.1) K/mm3 Seg Neutrophils % 53.0 (40.0-70.0) % Seg Neutrophils # 2.0 (1.8-7.7) K/mm3 PT (12.2-14.9) Sec. INR (0.87-1.13) APTT (24.2-36.6) Sec. D-Dimer (0-234) ng/mlDDU Sodium 141 (137-145) mmol/L Potassium 3.6 (3.6-5.0) mmol/L Chloride 105.1 (98-107) mmol/L Carbon Dioxide 25 (22-30) mmol/L Anion Gap 15 mmol/L BUN 17 (9-20) mg/dL Creatinine 1.3 (0.8-1.3) mg/dL Estimated GFR > 60 ml/min BUN/Creatinine Ratio 13 % Glucose 100 (75-100) mg/dL Calcium 9.0 (8.4-10.2) mg/dL Total Bilirubin 0.30 (0.1-1.2) mg/dL AST 22 (5-40) units/L ALT 24 (7-56) units/L Alkaline Phosphatase 117 (35-129) units/L Troponin T < 0.010 < 0.010 (0.00-0.029) ng/mL NT-Pro-B Natriuret Pep < 5 (0-450) pg/mL Total Protein 7.1 (6.3-8.2) g/dL Albumin 4.3 (3.9-5) g/dL Albumin/Globulin Ratio 1.5 % 06/08/20 Range/Units 07:07 WBC (4.5-11.0) K/mm3 RBC (3.65-5.03) M/mm3 Hgb (11.8-15.2) gm/dl Hct (35.5-45.6) % MCV (84-94) fl MCH (28-32) pg MCHC (32-34) % RDW (13.2-15.2) % Plt Count (140-440) K/mm3 Lymph % (Auto) (13.4-35.0) % [place] % (Auto) (0.0-7.3) % Eos % (Auto) (0.0-4.3) % Baso % (Auto) (0.0-1.8) % Lymph # (Auto) (1.2-5.4) K/mm3 [place] # (Auto) (0.0-0.8) K/mm3 Eos # (Auto) (0.0-0.4) K/mm3 Baso # (Auto) (0.0-0.1) K/mm3 Seg Neutrophils % (40.0-70.0) % Seg Neutrophils # (1.8-7.7) K/mm3 PT 14.4 (12.2-14.9) Sec. INR 1.14 H (0.87-1.13) APTT 27.5 (24.2-36.6) Sec. D-Dimer 609.23 H (0-234) ng/mlDDU Sodium (137-145) mmol/L Potassium (3.6-5.0) mmol/L Chloride (98-107) mmol/L Carbon Dioxide (22-30) mmol/L Anion Gap mmol/L BUN (9-20) mg/dL Creatinine (0.8-1.3) mg/dL Estimated GFR ml/min BUN/Creatinine Ratio % Glucose (75-100) mg/dL Calcium (8.4-10.2) mg/dL Total Bilirubin (0.1-1.2) mg/dL AST (5-40) units/L ALT (7-56) units/L Alkaline Phosphatase (35-129) units/L Troponin T (0.00-0.029) ng/mL NT-Pro-B Natriuret Pep (0-450) pg/mL Total Protein (6.3-8.2) g/dL Albumin (3.9-5) g/dL Albumin/Globulin Ratio % - EKG Data -: EKG Interpreted by Me EKG shows normal: sinus rhythm, ST-T waves (No ischemia or ST elevation) Rate: normal - EKG Data When compared to previous EKG there are: no significant change - Radiology Data Radiology results: report reviewed (Chest x-ray: No acute finding) CT angiogram chest negative for acute abnormality or pulmonary emboli - Medical Decision Making Patient presents to the hospital right-sided atypical chest pain which is likely muscle skeletal origin. Patient has a low heart score with negative troponin and pain is right-sided. CT angiogram negative for pulmonary embolism. As per drafter detail note during last admission this fall it is suggested that patient's underlying cardiac disease is over exaggerated by the patient and has not been verified with previous cardiac testing. Patient also claims to be on blood thinners for pulmonary embolism/DVT but is subtherapeutic. No signs of pulmonary embolism at this time. Patient treated with morphine and Zofran in the ED we discharged on tramadol and encouraged to follow-up with PMD Critical Care Time: No Critical care attestation.: If time is entered above; I have spent that time in minutes in the direct care of this critically ill patient, excluding procedure time. ED Disposition Clinical Impression: Atypical chest pain Disposition: DC-01 TO HOME OR SELFCARE Is pt being admited?: No Does the pt Need Aspirin: No Condition: Stable Instructions: Nonspecific Chest Pain, Adult, Chest Pain (ED) Additional Instructions: Take the medication as prescribed. Follow-up with your doctor or doctor/clinic provided. Return if symptoms worsen as indicated by your discharge instructions. Prescriptions: traMADoL [Ultram 50 MG tab] 50 mg PO Q6HR PRN #14 tablet PRN Reason: Pain Referrals: PRIMARY CARE, [Primary Care Provider] - 3-5 Days Time of Disposition: 10:25
[2020-06-08] MEDS ORDERED: ONDANSETRON 4 MG/2 ML INJ IV ONE (07:49)
[2020-06-08] MEDS ORDERED: MORPHINE 4 MG/1 ML INJ IV ONE (07:49)
[2020-06-08 08:19] LABS: INR 1.14 (0.87-1.13)
[2020-06-08 08:20] LABS: Partial Thromboplastin Time 27.5 Sec. (24.2-36.6)
[2020-06-08 10:39] VITALS: BP 139/88
--- NOTE | 2020-06-08 11:47 | Cat Scan Report ---
CTA CHEST WITH CONTRAST INDICATION / CLINICAL INFORMATION: right cp (sharp) elevated ddimer. TECHNIQUE: Axial CT images were obtained through the chest after injection of IV contrast. 3 plane AL P and/or 3D reconstructions were produced. All CT scans at this location are performed using CT dose reduction for ALARA by means of automated exposure control. COMPARISON: CT from 02/12/2020. FINDINGS: PULMONARY ARTERIES: No central or segmental pulmonary embolus. THORACIC AORTA: No significant abnormality. HEART: No significant abnormality. ADENOPATHY: No significant adenopathy. LUNGS/PLEURA: No focal airspace consolidation. No pleural effusion. No pneumothorax. ADDITIONAL FINDINGS: None. UPPER ABDOMEN: No acute findings. SKELETAL STRUCTURES: No significant osseous abnormality. IMPRESSION: No acute findings of the chest. No evidence of pulmonary embolus. Signer Name: Levi Avila MD Signed: 06/08/2020 9:30 AM Workstation Name: [id number]
== END 2020-06-08 10:40 | disposition home or self-care (01) ==
LOC: ED 01:07
DX: R07.89 Other chest pain (principal); I11.0 Hypertensive heart disease with heart failure; I50.9 Heart failure, unspecified; I25.2 Old myocardial infarction; E11.9 Type 2 diabetes mellitus without complications; I48.91 Unspecified atrial fibrillation; J45.909 Unspecified asthma, uncomplicated; Z98.890 Other specified postprocedural states; Z79.899 Other long term (current) drug therapy; Z88.8 Allergy status to other drugs, medicaments and biological substances; Z86.73 Personal history of transient ischemic attack (TIA), and cerebral infarction without residual deficits
CPT/HCPCS: 36415; 71046; 71275; 80053; 83880; 84484; 85025; 85379; 85610; 85730; 96374; 96375; 99284; J2270; J2405; Q9967; 93005

== ENCOUNTER 2020-06-30 23:33 | Observation (INO) | payer MEDICAID ==
--- NOTE | 2020-07-01 00:03 | Event Note ---
ED Screening Note Date of service: 07/01/20 Time: 00:01 ED Screening Note: Patient is a 39 yo AA male with a h/o CAD, CHF who presents to the ED with c/o acute onset persistent left-sided chest pain, dyspnea and left arm pain x 12 hours, worse in the past 4 hours. Patient denies dizziness, headache, nausea, vomiting, back pain, neck pain, cough or abdominal pain, vision changes, lightheadedness, traumatic injury or numbness, tingling or weakness of upper and lower extremities bilaterally. This initial assessment/diagnostic orders/clinical plan/treatment(s) is/are subject to change based on patients health status, clinical progression and re- assessment by fellow clinical providers in the ED. Further treatment and workup at subsequent clinical providers discretion. Patient/guardian urged not to elope from the ED as their condition may be serious if not clinically assessed and managed. Initial orders include: CBC, CMP, Troponin, Chest XR, EKG
[2020-07-01 00:14] LABS: Basophils # (Auto) 0.1 K/mm3 (0.0-0.1); Basophils % (Auto) 1.3 % (0.0-1.8); Eosinophils # (Auto) 0.1 K/mm3 (0.0-0.4); Eosinophils % (Auto) 2.8 % (0.0-4.3); Hemoglobin 11.9 gm/dl (11.8-15.2); Lymphocytes # (Auto) 1.1 K/mm3 (1.2-5.4); Lymphocytes % (Auto) 24.7 % (13.4-35.0); Mean Corpuscular HGB Conc 33 % (32-34); Mean Corpuscular Volume 81 fl (84-94); Monocytes # (Auto) 0.6 K/mm3 (0.0-0.8); Monocytes % (Auto) 13.1 % (0.0-7.3); Platelet Count 214 K/mm3 (140-440); Red Blood Count 4.43 M/mm3 (3.65-5.03); Red Cell Distribution Width 17.7 % (13.2-15.2)
[2020-07-01 00:39] LABS: Alanine Aminotransferase 22 units/L (7-56); Albumin 4.2 g/dL (3.9-5); BUN/Creatinine Ratio 7; Blood Urea Nitrogen 8 mg/dL (9-20); Hemolysis Index 27
--- NOTE | 2020-07-01 00:44 | XRay Report ---
CHEST 1 VIEW 07/01/2020 12:31 AM INDICATION / CLINICAL INFORMATION: chest pain. COMPARISON: 06/08/2020. FINDINGS: SUPPORT DEVICES: None. HEART / MEDIASTINUM: Stable. LUNGS / PLEURA: Stable mild interstitial thickening. No localized infiltrate. No pneumothorax or pleu ral fluid. ADDITIONAL FINDINGS: No significant additional findings. IMPRESSION: Stable chest. Signer Name: Ketan Hale MD Signed: 07/01/2020 12:39 AM Workstation Name: [id number]
--- NOTE | 2020-07-01 01:00 | Emergency Department Report ---
ED Chest Pain HPI - General Chief Complaint: Chest Pain Stated Complaint: CHEST PAIN PUI?: No Time Seen by Provider: 07/01/20 00:55 Source: patient Mode of arrival: Ambulatory Limitations: No Limitations - History of Present Illness Initial Comments: Patient is a 39-year-old male that presents emergency room with complaints of c hest pain and shortness of breath. Patient states that his symptoms started yesterday morning. Patient states that the pain and the shortness of breath are worsening. Patient states the chest pain is in his left side that radiates to his left arm. Patient states that his chest pain or shortness of breath are better with rest. Patient states that his chest pain or shortness of breath are worse with exertion. Patient denies reproducible chest pain. Patient denies fever and chills. Patient denies nausea and vomiting. Patient states he has a history of CHF, [place], CVA, cardiac stents, diabetes, hypertension. Patient denies recent travel. Patient denies recent international travel. Mily ent denies exposure to the novel coronavirus. Patient denies sick contacts. Patient denies fever and chills. Patient denies cough. Patient denies diarrhea. Patient denies coming in contact with anybody with symptoms of the novel coronavirus. MD Complaint: chest pain -: Sudden Onset: during rest Pain Location: left chest Pain Radiation: LUE Severity: severe Severity scale (0 -10): 10 Quality: sharp Consistency: constant Improves With: rest Worsens With: exertion re: dyspnea. denies: nausea, vomting, diaphoresis, sense of impending doom Other Symptoms: leg swelling. denies: cough, fever, syncope, rash, acid taste in mouth, palpitations, burping Treatments Prior to Arrival: aspirin Aspirin use within the Past 7 Days: (1) Yes - Related Data On Oral Contraceptives: No Home Medications Medication Instructions Recorded Confirmed Last Taken Nitroglycerin [Nitrostat] 0.4 mg SL Q5M PRN 08/24/17 02/12/20 Unknown Previous Rx's Medication Instructions Recorded Last Taken Type Nicotine [Habitrol] 21 mg TD DAILY #30 patch 06/18/18 Unknown Rx Sodium Phosphate,[place]-Dibasic 118 ml RC ONCE 1 Days #1 enema 06/22/18 Unknown Rx [Fleet Enema] Menthol/Camphor [[place] 1 applicatio TP QID PRN #1 tube 08/17/18 Unknown Rx Ointment] Lansoprazole [Prevacid] 30 mg PO DAILY #30 capsule. 09/06/18 Unknown Rx Menthol/Camphor [[place] 18 gm TP Q4H PRN #1 oint...g. 10/05/18 Unknown Rx Ointment] Promethazine [Phenergan] 25 mg PO Q8HR PRN #10 tab 12/13/19 Unknown Rx traMADoL [Ultram 50 MG tab] 50 mg PO Q6HR PRN #10 tablet 02/13/20 Unknown Rx Albuterol Mdi (or & Nicu Only) 2 puff IH QID PRN #8.5 gram 04/28/20 Unknown Rx [ProAir HFA Inhaler] Clopidogrel [Plavix] 75 mg PO QDAY 7 Days #30 tablet 04/28/20 Unknown Rx Docusate Sodium [Colace CAP] 100 mg PO BID #14 capsule 04/28/20 Unknown Rx Famotidine [Pepcid] 20 mg PO BID 7 Days #14 tablet 04/28/20 Unknown Rx Ferrous Gluconate [Ferrous 324 mg PO TID #20 tablet 04/28/20 Unknown Rx Gluconate 324 MG] carvediloL [Coreg] 12.5 mg PO BID #14 tablet 04/28/20 Unknown Rx traMADoL [Ultram 50 MG tab] 50 mg PO Q6HR PRN #14 tablet 06/08/20 Unknown Rx Allergies Allergy/AdvReac Type Severity Reaction Status Date / Time acetaminophen [From Tylenol] Allergy Itching Verified 11/09/18 02:15 aspirin Allergy Hives Verified 11/09/18 02:15 Heart Score - HEART Score History: Moderately suspicious EKG: Normal Age: < 45 Risk factors: > 3 risk factors or hx of atherosclerotic disease Troponin: < normal limit HEART Score: 3 ED Review of Systems ROS: Stated complaint: CHEST PAIN Other details as noted in HPI Constitutional: denies: chills, fever Eyes: denies: eye pain, eye discharge, vision change ENT: denies: ear pain, throat pain Respiratory: see HPI, shortness of breath. denies: cough, wheezing Cardiovascular: as per HPI, chest pain, dyspnea on exertion. denies: palpitations Endocrine: no symptoms reported Gastrointestinal: denies: abdominal pain, nausea, diarrhea Genitourinary: denies: urgency, dysuria Musculoskeletal: denies: back pain, joint swelling, arthralgia Skin: denies: rash, lesions Neurological: denies: headache, weakness, paresthesias Psychiatric: denies: anxiety, depression Hematological/Lymphatic: denies: easy bleeding, easy bruising ED Past Medical Hx - Past Medical History Previous Medical History?: Yes Hx Hypertension: Yes Hx CVA: Yes (TIAs, residiu. right side weakness) Hx Heart Attack/AMI: Yes Hx Congestive Heart Failure: Yes Hx Diabetes: Yes Hx Deep Vein Thrombosis: Yes (R-leg) Hx Pulmonary Embolism: Yes Hx Asthma: Yes Additional medical history: Ulcers, a-fib. strong family hx of cardiac disorders - Surgical History Past Surgical History?: Yes Hx Coronary Stent: Yes (2 in 2019) Additional Surgical History: Stent placement - Family History Family history: no significant - Social History Smoking Status: Current Every Day Smoker Substance Use Type: None - Medications Home Medications: Home Medications Medication Instructions Recorded Confirmed Last Taken Type Nitroglycerin [Nitrostat] 0.4 mg SL Q5M PRN 08/24/17 02/12/20 Unknown History Nicotine [Habitrol] 21 mg TD DAILY #30 patch 06/18/18 02/12/20 Unknown Rx Sodium Phosphate,[place]-Dibasic 118 ml RC ONCE 1 Days #1 enema 06/22/18 02/12/20 Unknown Rx [Fleet Enema] Menthol/Camphor [[place] 1 applicatio TP QID PRN #1 tube 08/17/18 02/12/20 Unknown Rx Ointment] Lansoprazole [Prevacid] 30 mg PO DAILY #30 capsule.dr 09/06/18 02/12/20 Unknown Rx Menthol/Camphor [[place] Her[place] 18 gm TP Q4H PRN #1 oint...g. 10/05/18 02/12/20 Unknown Rx Ointment] Promethazine [Phenergan] 25 mg PO Q8HR PRN #10 tab 12/13/19 02/12/20 Unknown Rx traMADoL [Ultram 50 MG tab] 50 mg PO Q6HR PRN #10 tablet 02/13/20 Unknown Rx Albuterol Mdi (or & Nicu Only) 2 puff IH QID PRN #8.5 gram 04/28/20 Unknown Rx [ProAir HFA Inhaler] Clopidogrel [Plavix] 75 mg PO QDAY 7 Days #30 tablet 04/28/20 Unknown Rx Docusate Sodium [Colace CAP] 100 mg PO BID #14 capsule 04/28/20 Unknown Rx Famotidine [Pepcid] 20 mg PO BID 7 Days #14 tablet 04/28/20 Unknown Rx Ferrous Gluconate [Ferrous 324 mg PO TID #20 tablet 04/28/20 Unknown Rx Gluconate 324 MG] carvediloL [Coreg] 12.5 mg PO BID #14 tablet 04/28/20 Unknown Rx traMADoL [Ultram 50 MG tab] 50 mg PO Q6HR PRN #14 tablet 06/08/20 Unknown Rx ED Physical Exam - General Limitations: No Limitations General appearance: alert, in no apparent distress - Head Head exam: Present: atraumatic, normocephalic - Eye Eye exam: Present: normal appearance - ENT ENT exam: Present: mucous membranes moist - Neck Neck exam: Present: normal inspection - Respiratory Respiratory exam: Present: normal lung sounds bilaterally. Absent: respiratory distress, chest wall tenderness - Cardiovascular Cardiovascular Exam: Present: regular rate, normal rhythm. Absent: systolic murmur, diastolic murmur, rubs, gallop - GI/Abdominal GI/Abdominal exam: Present: soft, normal bowel sounds - Rectal Rectal exam: Present: deferred - Extremities Exam Extremities exam: Present: normal inspection - Back Exam Back exam: Present: normal inspection - Neurological Exam Neurological exam: Present: alert, oriented X3 - Psychiatric Psychiatric exam: Present: normal affect, normal mood - Skin Skin exam: Present: warm, dry, intact, normal color. Absent: rash ED Course Vital Signs 06/30/20 23:52 Temperature 98.9 F Pulse Rate 96 H Respiratory 18 Rate Blood Pressure 141/90 O2 Sat by Pulse 94 Oximetry - Reevaluation(s) Reevaluation #1: I discussed all results with patient. I discussed plan of care with patient. Patient agrees with plan of care and admission. Patient to be admitted to the hospitalist service. 07/01/20 01:04 - Consultations Consultation #1: Hospitalist consulted for admission. Hospitalist to admit patient. 07/01/20 01:04 KIANNA score - Kianna Score Age > 65: (0) No Aspirin use within the Past 7 Days: (0) No 3 or more CAD Risk Factors: (1) Yes 2 or more Angina events in past 24 hrs: (0) No Known CAD with more than 50% Stenosis: (0) No Elevated Cardiac Markers: (0) No ST Deviation Greater than 0.5mm: (0) No KIANNA Score: 1 ED Medical Decision Making - Lab Data Result diagrams: 07/01/20 00:06 07/01/20 00:06 - EKG Data -: EKG Interpreted by Me EKG shows normal: sinus rhythm, axis, intervals, QRS complexes, ST-T waves Rate: normal - EKG Data When compared to previous EKG there are: no significant change Interpretation: no acute changes, normal EKG - Radiology Data Radiology results: report reviewed, image reviewed interpreted by me: Chest x-ray: No pneumonia, no pneumothorax, no foreign body, no osseous findings, no acute findings CHEST 1 VIEW 07/01/2020 12:31 AM INDICATION / CLINICAL INFORMATION: chest pain. COMPARISON: 06/08/2020. FINDINGS: SUPPORT DEVICES: None. HEART / MEDIASTINUM: Stable. LUNGS / PLEURA: Stable mild interstitial thickening. No localized infiltrate. No pneumothorax or pleural fluid. ADDITIONAL FINDINGS: No significant additional findings. IMPRESSION: Stable chest. - Medical Decision Making Patient is a 39-year-old male that presents emergency room with complaints of chest pain or shortness of breath. Patient has a significant cardiac history and has an elevated heart score. Patient had labs done which were essentially unremarkable. Patient had a EKG done which was negative for acute findings and a normal ST segment. Patient had a chest x-ray done which was normal and no acute findings. I personally reviewed the chest x-ray and EKG. Patient allergic to aspirin able to take aspirin. Patient admitted to the hospitalist service for further evaluation and treatment and rule out ACS. - Differential Diagnosis Chest pain, ACS, shortness of breath, Critical Care Time: Yes Critical care time in (mins) excluding proc time.: 35 Critical care attestation.: If time is entered above; I have spent that time in minutes in the direct care of this critically ill patient, excluding procedure time. Critical Care Time: 35 minutes ED Disposition Clinical Impression: SOB (shortness of breath), Tobacco use Chest pain Qualifiers: Chest pain type: unspecified Qualified Code(s): R07.9 - Chest pain, unspecified Coronary artery disease Qualifiers: Coronary Disease-Associated Artery/Lesion type: [place] artery [place] vs. transplanted heart: [place] heart Associated angina: with unspecified angina Qualified Code(s): I25.119 - Atherosclerotic heart disease of [place] coronary artery with unspecified angina pectoris Disposition: OP ADMIT IP TO THIS HOSP Is pt being admited?: Yes Does the pt Need Aspirin: No Condition: Stable Time of Disposition: 01:02
[2020-07-01] MEDS ORDERED: MORPHINE 10 MG/1 ML INJ IV ONE (09:06)
[2020-07-01] MEDS ORDERED: MORPHINE 2 MG/1 ML INJ IV NR (09:20)
[2020-07-01] MEDS ORDERED: NITROGLYCERIN 0.4 MG TAB SUBL SL PRN (09:33)
[2020-07-01] MEDS ORDERED: ALBUTEROL 8.5 GM MDI INHALATION IH PRN (09:37)
[2020-07-01] MEDS ORDERED: traMADol 50 MG TAB PO PRN (09:37)
[2020-07-01] MEDS ORDERED: ALBUTEROL 2.5 MG/3 ML NEBU IH PRN (09:44)
[2020-07-01] MEDS ORDERED: FAMOTIDINE 20 MG TAB PO SCH (10:00)
[2020-07-01] MEDS ORDERED: carvediloL 12.5 MG TAB PO SCH ×2 (10:00)
[2020-07-01] MEDS ORDERED: carvediloL 3.125 MG TAB PO SCH (10:00)
[2020-07-01] MEDS ORDERED: CLOPIDOGREL 75 MG TAB PO SCH (10:00)
--- NOTE | 2020-07-01 10:37 | History and Physical Report ---
History of Present Illness Date of examination: 07/01/20 Date of admission: 07/01/20 01:03 Chief complaint: SOB History of present illness: Patient is a 39-year-old male that presents emergency room with complaints of chest pain and shortness of breath. Patient states that his symptoms started yesterday morning. Patient states that the pain and the shortness of breath are worsening. Patient states the chest pain is in his left side that radiates to his left arm. Patient states that his chest pain or shortness of breath are better with rest. Patient states that his chest pain or shortness of breath are worse with exertion. Patient denies reproducible chest pain. Patient denies fever and chills. Patient denies nausea and vomiting. Patient states he has a history of CHF, NE, CVA, cardiac stents, diabetes, hypertension. Patient denies recent travel. Patient denies recent international travel. Patient denies exposure to the novel coronavirus. Patient denies sick contacts. Patient denies fever and chills. Patient denies cough. Patient denies diarrhea. Patient denies coming in contact with anybody with symptoms of the novel coronavirus. - Past Medical History Previous Medical History?: Yes Hx Hypertension: Yes Hx CVA: Yes (TIAs, residiu. right side weakness) Hx Heart Attack/AMI: Yes Hx Congestive Heart Failure: Yes Hx Diabetes: Yes Hx Deep Vein Thrombosis: Yes (R-leg) Hx Pulmonary Embolism: Yes Hx Asthma: Yes Additional medical history: Ulcers, a-fib. strong family hx of cardiac disorders - Surgical History Past Surgical History?: Yes Hx Coronary Stent: Yes (2 in 2019) Additional Surgical History: Stent placement - Social History Smoking Status: Never Smoker Substance Use Type: None Review of System: Constitutional: no fever, no chills, no weight loss Ears, eyes, nose, mouth and throat: no nasal congestion, no nasal discharge, no sinus pressure, no vision change, no red eye. Neck: No neck pain or rigidity. Cardiovascular: + chest pain, no orthopnea, no palpitations, no leg swelling Respiratory: No shortness of breath, no cough, no congestion, no wheezing Gastrointestinal: no abdominal pain, no nausea, no vomiting Genitourinary : no dysuria, no hematuria Musculoskeletal: no joint swelling or muscle ache Integumentary: no rash, no pruritis Neurological: no parathesias, no numbness, no tingling Endocrine: no cold or heat intolerance, no polyuria or polydipsia Hematologic/Lymphatic: no easy bruising, no easy bleeding, no gland swelling Allergic/Immunologic: no urticaria, no angioedema. Medications and Allergies Allergies Allergy/AdvReac Type Severity Reaction Status Date / Time acetaminophen [From Tylenol] Allergy Itching Verified 11/09/18 02:15 aspirin Allergy Hives Verified 11/09/18 02:15 Home Medications Medication Instructions Recorded Confirmed Last Taken Type Nitroglycerin [Nitrostat] 0.4 mg SL Q5M PRN 08/24/17 02/12/20 Unknown History Nicotine [Habitrol] 21 mg TD DAILY #30 patch 06/18/18 02/12/20 Unknown Rx Sodium Phosphate,[place]-Dibasic 118 ml RC ONCE 1 Days #1 enema 06/22/18 02/12/20 Unknown Rx [Fleet Enema] Menthol/Camphor [[place] 1 applicatio TP QID PRN #1 tube 08/17/18 02/12/20 Unknown Rx Ointment] Lansoprazole [Prevacid] 30 mg PO DAILY #30 capsule. 09/06/18 02/12/20 Unknown Rx Menthol/Camphor [[place] 18 gm TP Q4H PRN #1 oint...g. 10/05/18 02/12/20 Unknown Rx Ointment] Promethazine [Phenergan] 25 mg PO Q8HR PRN #10 tab 12/13/19 02/12/20 Unknown Rx traMADoL [Ultram 50 MG tab] 50 mg PO Q6HR PRN #10 tablet 02/13/20 Unknown Rx Albuterol Mdi (or & Nicu Only) 2 puff IH QID PRN #8.5 gram 04/28/20 Unknown Rx [ProAir HFA Inhaler] Clopidogrel [Plavix] 75 mg PO QDAY 7 Days #30 tablet 04/28/20 Unknown Rx Docusate Sodium [Colace CAP] 100 mg PO BID #14 capsule 04/28/20 Unknown Rx Famotidine [Pepcid] 20 mg PO BID 7 Days #14 tablet 04/28/20 Unknown Rx Ferrous Gluconate [Ferrous 324 mg PO TID #20 tablet 04/28/20 Unknown Rx Gluconate 324 MG] carvediloL [Coreg] 12.5 mg PO BID #14 tablet 04/28/20 Unknown Rx traMADoL [Ultram 50 MG tab] 50 mg PO Q6HR PRN #14 tablet 06/08/20 Unknown Rx Active Meds: Active Medications Albuterol (Albuterol 2.5 Mg/3 Ml Nebu) 2.5 mg IH QIDRT PRN PRN Reason: Shortness Of Breath Atorvastatin Calcium (Atorvastatin 40 Mg Tab) 40 mg PO QHS ANDREW Carvedilol (Carvedilol 3.125 Mg Tab) 3.125 mg PO BID ANDREW Clopidogrel Bisulfate (Clopidogrel 75 Mg Tab) 75 mg PO QDAY ANDREW Famotidine (Famotidine 20 Mg Tab) 20 mg PO BID ANDREW Ferrous Gluconate (Ferrous Gluconate 324 Mg Tab) 324 mg PO TID ANDREW Morphine Sulfate (Morphine 2 Mg/1 Ml Inj) 2 mg IV ONCE NR Stop: 07/01/20 15:00 Last Admin: 07/01/20 09:16 Dose: 2 mg Documented by: Morphine Sulfate (Morphine 2 Mg/1 Ml Inj) 2 mg IV Q5MIN PRN PRN Reason: Chest Pain unrelieved by NTG Nitroglycerin (Nitroglycerin 0.4 Mg Tab Subl) 0.4 mg SL Q5M PRN PRN Reason: Chest Pain Sodium Chloride (Sodium Chloride 0.9% 10 Ml Flush Syringe) 10 ml IV PRN PRN PRN Reason: LINE FLUSH Tramadol HCl (Tramadol 50 Mg Tab) 50 mg PO Q6HR PRN PRN Reason: PAIN Exam - Constitutional Vitals: Temp Pulse Resp BP Pulse Ox 98.2 F 76 20 134/86 96 07/01/20 08:36 07/01/20 08:36 07/01/20 08:36 07/01/20 08:36 07/01/20 08:36 HEART Score - HEART Score EKG: Normal Age: < 45 Risk factors: > 3 risk factors or hx of atherosclerotic disease Troponin: Troponin T < 0.010 ng/mL (0.00-0.029) 07/01/20 03:16 Troponin: < normal limit Results - Labs CBC & Chem 7: 07/01/20 00:06 07/01/20 00:06 Labs: Abnormal lab results 07/01/20 07/01/20 Range/Units 00:06 00:06 MCV 81 L (84-94) fl MCH 27 L (28-32) pg RDW 17.7 H (13.2-15.2) % [place] % (Auto) 13.1 H (0.0-7.3) % Lymph # (Auto) 1.1 L (1.2-5.4) K/mm3 BUN 8 L (9-20) mg/dL Glucose 116 H (75-100) mg/dL Assessment and Plan Acute chest pain -Chest pain is intermittent with multiple recurrent admissions in the past and he has a ?? history of coronary artery disease with stents on 2018 -Troponin x2 negative. Started on Plavix (as patient allergic to aspirin), and statin -Cardiology has been consulted Hypertension -Monitor blood pressure, resume home meds Diabetes -Sliding scale insulin, consistent carb diet History of DVT and pulmonary embolism -Patient reportedly takes anticoagulation but is unsure about the name Reported history of CVAs -Patient is allergic to aspirin -Started on plavix DVT prophylaxis-Heparin Full code
--- NOTE | 2020-07-01 12:20 | Consultation ---
History of Present Illness Consult date: 07/01/20 Consult reason: chest pain History of present illness: The patient is a 39-year-old man who is admitted to the hospital with chest p ain. His chest pain is localized to the left upper chest and left shoulder. The pain is positional, worse with his turning to the left side of his thorax. Most notably, the patient has marked reduction of range of motion at the left shoulder, unable to abduct his arm more than 30 to 45 degrees. He experiences severe discomfort on reaching forward with his left arm. He has no prior cardiac history. A cardiac catheterization 5 years ago at [facility] reported normal coronary arteries. Following that he has had multiple admissions for atypical chest pain, followed by serial, negative thallium stress tests. The patient's medications include Plavix therapy, which is used as a substitute antiplatelet therapy for his aspirin allergy, no indication of previous coronary artery disease. His presenting ECG is normal sinus rhythm, left ventricle hypertrophy, no ST or T wave changes of ischemia. Serial troponin levels are negative. Chest x-ray reveals a normal size cardiac silhouette and clear lungs. Past History Past Medical History: other (Atypical chest pain) Medications and Allergies Allergies Allergy/AdvReac Type Severity Reaction Status Date / Time acetaminophen [From Tylenol] Allergy Itching Verified 11/09/18 02:15 aspirin Allergy Hives Verified 11/09/18 02:15 Home Medications Medication Instructions Recorded Confirmed Last Taken Type Nitroglycerin [Nitrostat] 0.4 mg SL Q5M PRN 08/24/17 02/12/20 Unknown History Nicotine [Habitrol] 21 mg TD DAILY #30 patch 06/18/18 02/12/20 Unknown Rx Sodium Phosphate,[place]-Dibasic 118 ml RC ONCE 1 Days #1 enema 06/22/18 02/12/20 Unknown Rx [Fleet Enema] Menthol/Camphor [[place] 1 applicatio TP QID PRN #1 tube 08/17/18 02/12/20 Unknown Rx Ointment] Lansoprazole [Prevacid] 30 mg PO DAILY #30 capsule. 09/06/18 02/12/20 Unknown Rx Menthol/Camphor [[place] 18 gm TP Q4H PRN #1 oint...g. 10/05/18 02/12/20 Unknown Rx Ointment] Promethazine [Phenergan] 25 mg PO Q8HR PRN #10 tab 12/13/19 02/12/20 Unknown Rx traMADoL [Ultram 50 MG tab] 50 mg PO Q6HR PRN #10 tablet 02/13/20 Unknown Rx Albuterol Mdi (or & Nicu Only) 2 puff IH QID PRN #8.5 gram 04/28/20 Unknown Rx [ProAir HFA Inhaler] Clopidogrel [Plavix] 75 mg PO QDAY 7 Days #30 tablet 04/28/20 Unknown Rx Docusate Sodium [Colace CAP] 100 mg PO BID #14 capsule 04/28/20 Unknown Rx Famotidine [Pepcid] 20 mg PO BID 7 Days #14 tablet 04/28/20 Unknown Rx Ferrous Gluconate [Ferrous 324 mg PO TID #20 tablet 04/28/20 Unknown Rx Gluconate 324 MG] carvediloL [Coreg] 12.5 mg PO BID #14 tablet 04/28/20 Unknown Rx traMADoL [Ultram 50 MG tab] 50 mg PO Q6HR PRN #14 tablet 06/08/20 Unknown Rx Active Meds: Active Medications Albuterol (Albuterol 2.5 Mg/3 Ml Nebu) 2.5 mg IH QIDRT PRN PRN Reason: Shortness Of Breath Atorvastatin Calcium (Atorvastatin 40 Mg Tab) 40 mg PO QHS ANDREW Carvedilol (Carvedilol 3.125 Mg Tab) 3.125 mg PO BID ANDREW Clopidogrel Bisulfate (Clopidogrel 75 Mg Tab) 75 mg PO QDAY ANDREW Famotidine (Famotidine 20 Mg Tab) 20 mg PO BID ANDREW Ferrous Gluconate (Ferrous Gluconate 324 Mg Tab) 324 mg PO TID ANDREW Morphine Sulfate (Morphine 2 Mg/1 Ml Inj) 2 mg IV ONCE NR Stop: 07/01/20 15:00 Last Admin: 07/01/20 09:16 Dose: 2 mg Documented by: Morphine Sulfate (Morphine 2 Mg/1 Ml Inj) 2 mg IV Q5MIN PRN PRN Reason: Chest Pain unrelieved by NTG Nitroglycerin (Nitroglycerin 0.4 Mg Tab Subl) 0.4 mg SL Q5M PRN PRN Reason: Chest Pain Sodium Chloride (Sodium Chloride 0.9% 10 Ml Flush Syringe) 10 ml IV PRN PRN PRN Reason: LINE FLUSH Tramadol HCl (Tramadol 50 Mg Tab) 50 mg PO Q6HR PRN PRN Reason: PAIN Review of Systems Cardiovascular: chest pain, no orthopnea, no palpitations, no rapid/irregular heart beat, no edema, no syncope, no lightheadedness, no shortness of breath Physical Examination Vital Signs Temp Pulse Resp BP Pulse Ox 98.9 F 96 H 18 141/90 94 06/30/20 23:52 06/30/20 23:52 06/30/20 23:52 06/30/20 23:52 06/30/20 23:52 General appearance: no acute distress, obese (Severe obesity) HEENT: Positive: PERRL Neck: Positive: neck supple Cardiac: Positive: Reg Rate and Rhythm Lungs: Positive: clear to auscultation Neuro: Positive: Grossly Intact Abdomen: Positive: Soft Male genitourinary: Positive: deferred Skin: Positive: Clear Musculoskeletal: other (Pain and decreased range of motion left upper chest and shoulder) Extremities: Absent: edema Results 07/01/20 00:06 07/01/20 00:06 Cardiac Enzymes 07/01/20 Range/Units 00:06 AST 19 (5-40) units/L CBC 07/01/20 Range/Units 00:06 WBC 4.5 (4.5-11.0) K/mm3 RBC 4.43 (3.65-5.03) M/mm3 Hgb 11.9 (11.8-15.2) gm/dl Hct 36.0 (35.5-45.6) % Plt Count 214 (140-440) K/mm3 Lymph # (Auto) 1.1 L (1.2-5.4) K/mm3 [place] # (Auto) 0.6 (0.0-0.8) K/mm3 Eos # (Auto) 0.1 (0.0-0.4) K/mm3 Baso # (Auto) 0.1 (0.0-0.1) K/mm3 Comprehensive Metabolic Panel 07/01/20 Range/Units 00:06 Sodium 139 (137-145) mmol/L Potassium 3.8 (3.6-5.0) mmol/L Chloride 103.1 (98-107) mmol/L Carbon Dioxide 24 (22-30) mmol/L BUN 8 L (9-20) mg/dL Creatinine 1.2 (0.8-1.3) mg/dL Glucose 116 H (75-100) mg/dL Calcium 9.0 (8.4-10.2) mg/dL AST 19 (5-40) units/L ALT 22 (7-56) units/L Alkaline Phosphatase 121 (35-129) units/L Total Protein 6.8 (6.3-8.2) g/dL Albumin 4.2 (3.9-5) g/dL EKG interpretations - Telemetry EKG Rhythm: Sinus Rhythm Assessment and Plan - Patient Problems (1) Musculoskeletal chest pain Current Visit: Yes Status: Acute Plan to address problem: Patient presents with left upper chest and shoulder pain, with marked decrease in range of motion at the shoulder, symptoms are consistent with musculoskeletal pain. No clinical symptoms of angina. No further cardiac work-up is indicated. Stress test will be canceled. Defer to internal medicine and orthopedics for further evaluation and management of the patient's shoulder pain and stiffness.
[2020-07-01] MEDS ORDERED: FERROUS GLUCONATE 324 MG TAB PO SCH (14:00)
[2020-07-01] MEDS: MORPHINE 2 MG/1 ML INJ IV PRN ×2 (14:30→17:35)
--- NOTE | 2020-07-01 16:04 | Discharge Summary ---
Providers - Providers Date of Admission: 07/01/20 01:03 Date of discharge: 07/01/20 Attending physician: ALEJANDRO COOPER 07/01/20 Consult to Cardiac Rehabilitation [CONS] Routine Reason For Exam: Phase I 07/01/20 09:33 Consult to Cardiology [CONS] Routine Consulting Provider: LLUVIA RUFF Reason For Exam: chest pain Primary care physician: YAM CURER Hospitalization Condition: Stable Disposition: DC-01 TO HOME OR SELFCARE Time spent for discharge: 34 minutes Core Measure Documentation - Palliative Care Palliative Care/ Comfort Measures: Not Applicable - Core Measures Any of the following diagnoses?: none Exam - Constitutional Vitals: Temp Pulse Resp BP Pulse Ox 98.8 F 78 18 132/76 94 07/01/20 12:04 07/01/20 12:18 07/01/20 12:04 07/01/20 12:18 07/01/20 12:04 Plan Activity: advance as tolerated Weight Bearing Status: Weight Bear as Tolerated Diet: low fat, low salt Follow up with: CITLALI RUBI MD [Primary Care Provider] - 3-5 Days LLUVIA RUFF MD [Staff Physician] - 7 Days Prescriptions: traMADoL [Ultram 50 MG tab] 50 mg PO Q6HR PRN #14 tablet PRN Reason: Pain
[2020-07-01 17:00] VITALS: BP 130/66
== END 2020-07-01 18:00 | disposition home or self-care (01) ==
LOC: ED 23:33 → 4A 07-01 01:03
PROVIDERS: ADMIT Internal Medicine Geriatric Medicine; ATTEND Internal Medicine
DX: I25.119 Atherosclerotic heart disease of native coronary artery with unspecified angina pectoris (principal); R07.89 Other chest pain; I11.0 Hypertensive heart disease with heart failure; I50.9 Heart failure, unspecified; E11.9 Type 2 diabetes mellitus without complications; J45.909 Unspecified asthma, uncomplicated; I48.91 Unspecified atrial fibrillation; L98.499 Non-pressure chronic ulcer of skin of other sites with unspecified severity; F17.200 Nicotine dependence, unspecified, uncomplicated; Z86.711 Personal history of pulmonary embolism; Z86.718 Personal history of other venous thrombosis and embolism; Z86.73 Personal history of transient ischemic attack (TIA), and cerebral infarction without residual deficits; Z95.1 Presence of aortocoronary bypass graft
CPT/HCPCS: 36415; 71045; 80053; 84484; 85025; 93005; 96374; 96376; 99291; G0378; J2270

== ENCOUNTER 2020-08-10 00:52 | Emergency (ER) | payer MEDICAID ==
[2020-08-10] MEDS ORDERED: ASPIRIN 325 MG TAB PO ONE (01:14)
[2020-08-10 01:41] LABS: Eosinophils # (Auto) 0.1 K/mm3 (0.0-0.4); Eosinophils % (Auto) 3.1 % (0.0-4.3); Hematocrit 34.3 % (35.5-45.6); Hemoglobin 11.2 gm/dl (11.8-15.2); Lymphocytes # (Auto) 1.1 K/mm3 (1.2-5.4); Lymphocytes % (Auto) 27.4 % (13.4-35.0); Mean Corpuscular HGB Conc 33 % (32-34); Mean Corpuscular Volume 81 fl (84-94); Monocytes # (Auto) 0.5 K/mm3 (0.0-0.8); Monocytes % (Auto) 13.3 % (0.0-7.3); Platelet Count 210 K/mm3 (140-440); Red Blood Count 4.22 M/mm3 (3.65-5.03); Red Cell Distribution Width 17.7 % (13.2-15.2)
[2020-08-10 02:08] LABS: Alanine Aminotransferase 27 units/L (7-56); Albumin 4.3 g/dL (3.9-5); BUN/Creatinine Ratio 11; Blood Urea Nitrogen 12 mg/dL (9-20); Calcium 8.7 mg/dL (8.4-10.2); Hemolysis Index 2
--- NOTE | 2020-08-10 03:00 | Emergency Department Report ---
ED Chest Pain HPI - General Chief Complaint: Chest Pain Stated Complaint: CHEST PAIN, RIGHT SIDE WEAKNESS Time Seen by Provider: 08/10/20 02:18 Source: patient Mode of arrival: Ambulatory - History of Present Illness Initial Comments: 39-year-old male presents to ED with chest pain since 8 PM. Patient states pain is left-sided, sharp in nature. Patient reports pain is alert worse whenever he tries to drink liquids, lay down, or goes from supine to sitting up position. Patient denies any fever, cough, shortness of breath. Patient states he received his COVID-19 vaccine "2 or 3 months ago from the pharmacy." Patient cannot remember which vaccine he received at that time. Patient also reported that he has complete right-sided weakness and is unable to move his right arm or leg at all. Patient reports this started 3 weeks ago. States he attempted to call his PCP but he kept getting the answering machine. I asked patient how he gets to the bathroom, states he is walking but he is dragging his right leg because he cannot lift it. I asked patient to demonstrate for me. Patient lifted his right leg with his left hand to get it off the stretcher. Patient was able to stand. Patient took a few steps with an antalgic gait. After telling patient that he could get back in the stretcher. Patient was able to sit down, and I witnessed patient to lift his right leg onto the stretcher on his own accord, without any assistance of his hand. -: This evening Onset: during rest Pain Location: left chest Pain Radiation: none Quality: sharp Worsens With: movement, other (drinking liquids) re: denies: nausea, vomting, diaphoresis, dyspnea Other Symptoms: denies: cough, fever - Related Data Home Medications Medication Instructions Recorded Confirmed Last Taken Nitroglycerin [Nitrostat] 0.4 mg SL Q5M PRN 08/24/17 02/12/20 Unknown Previous Rx's Medication Instructions Recorded Last Taken Type Nicotine [Habitrol] 21 mg TD DAILY #30 patch 06/18/18 Unknown Rx Lansoprazole [Prevacid] 30 mg PO DAILY #30 capsule. 09/06/18 Unknown Rx traMADoL [Ultram 50 MG tab] 50 mg PO Q6HR PRN #10 tablet 02/13/20 Unknown Rx Albuterol Mdi (or & Nicu Only) 2 puff IH QID PRN #8.5 gram 04/28/20 Unknown Rx [ProAir HFA Inhaler] Docusate Sodium [Colace CAP] 100 mg PO BID #14 capsule 04/28/20 Unknown Rx Ferrous Gluconate [Ferrous 324 mg PO TID #20 tablet 04/28/20 Unknown Rx Gluconate 324 MG] Clopidogrel [Plavix] 75 mg PO QDAY #30 tablet 07/01/20 Unknown Rx carvediloL [Coreg] 3.125 mg PO BID #60 tablet 07/01/20 Unknown Rx traMADoL [Ultram 50 MG tab] 50 mg PO Q6HR PRN #14 tablet 07/01/20 Unknown Rx Allergies Allergy/AdvReac Type Severity Reaction Status Date / Time acetaminophen [From Tylenol] Allergy Itching Verified 11/09/18 02:15 aspirin Allergy Hives Verified 11/09/18 02:15 Heart Score - HEART Score History: Slightly suspicious EKG: Normal Age: < 45 Risk factors: No known risk factors Troponin: < normal limit HEART Score: 0 - EKG Read Time Time EKG Completed: 01:21 EKG Read Time: 01:29 ED Review of Systems ROS: Stated complaint: CHEST PAIN, RIGHT SIDE WEAKNESS Other details as noted in HPI Comment: All other systems reviewed and negative Cardiovascular: chest pain Neurological: weakness ED Past Medical Hx - Past Medical History Hx Hypertension: Yes Hx CVA: Yes (TIAs, residiu. right side weakness) Hx Heart Attack/AMI: Yes Hx Congestive Heart Failure: Yes Hx Diabetes: Yes Hx Deep Vein Thrombosis: Yes (R-leg) Hx Pulmonary Embolism: Yes Hx Asthma: Yes Additional medical history: Ulcers, a-fib. strong family hx of cardiac disorders - Surgical History Hx Coronary Stent: Yes (2 in 2019) Additional Surgical History: Stent placement - Social History Smoking Status: Current Every Day Smoker Substance Use Type: None - Medications Home Medications: Home Medications Medication Instructions Recorded Confirmed Last Taken Type Nitroglycerin [Nitrostat] 0.4 mg SL Q5M PRN 08/24/17 02/12/20 Unknown History Nicotine [Habitrol] 21 mg TD DAILY #30 patch 06/18/18 02/12/20 Unknown Rx Lansoprazole [Prevacid] 30 mg PO DAILY #30 capsule. 09/06/18 02/12/20 Unknown Rx traMADoL [Ultram 50 MG tab] 50 mg PO Q6HR PRN #10 tablet 02/13/20 Unknown Rx Albuterol Mdi (or & Nicu Only) 2 puff IH QID PRN #8.5 gram 04/28/20 Unknown Rx [ProAir HFA Inhaler] Docusate Sodium [Colace CAP] 100 mg PO BID #14 capsule 04/28/20 Unknown Rx Ferrous Gluconate [Ferrous 324 mg PO TID #20 tablet 04/28/20 Unknown Rx Gluconate 324 MG] Clopidogrel [Plavix] 75 mg PO QDAY #30 tablet 07/01/20 Unknown Rx carvediloL [Coreg] 3.125 mg PO BID #60 tablet 07/01/20 Unknown Rx traMADoL [Ultram 50 MG tab] 50 mg PO Q6HR PRN #14 tablet 07/01/20 Unknown Rx ED Physical Exam - General General appearance: alert, in no apparent distress - Head Head exam: Present: atraumatic, normocephalic - Eye Eye exam: Present: normal appearance, EOMI - ENT ENT exam: Present: mucous membranes moist - Neck Neck exam: Present: normal inspection - Respiratory Respiratory exam: Present: normal lung sounds bilaterally. Absent: respiratory distress - Cardiovascular Cardiovascular Exam: Present: regular rate, normal rhythm - GI/Abdominal GI/Abdominal exam: Present: soft. Absent: distended, tenderness - Extremities Exam Extremities exam: Present: normal inspection - Neurological Exam Neurological exam: Present: alert, oriented X3, CN II-XII intact. Absent: motor sensory deficit (when I raise pt's right arm passively, he resists me, will not allow right arm to hit face; witnessed pt lift right leg onto stretcher) - Psychiatric Psychiatric exam: Present: normal affect, normal mood - Skin Skin exam: Present: warm, dry, intact, normal color ED Course Vital Signs 08/10/20 08/10/20 08/10/20 02:12 02:13 02:16 Temperature Pulse Rate 95 H 93 H 95 H Respiratory 28 H 27 H 25 H Rate Blood Pressure 125/76 125/76 O2 Sat by Pulse 97 97 97 Oximetry 08/10/20 08/10/20 08/10/20 02:30 02:45 03:00 Temperature Pulse Rate 90 101 H 99 H Respiratory 16 22 25 H Rate Blood Pressure 125/76 132/77 O2 Sat by Pulse 99 97 99 Oximetry 08/10/20 08/10/2021 03:15 03:51 04:01 Temperature 98.4 F Pulse Rate 89 94 H 86 Respiratory 21 20 18 Rate Blood Pressure 130/66 103/55 O2 Sat by Pulse 99 95 95 Oximetry KIANNA score - Kianna Score Age > 65: (0) No Aspirin use within the Past 7 Days: (0) No 3 or more CAD Risk Factors: (1) Yes 2 or more Angina events in past 24 hrs: (0) No Known CAD with more than 50% Stenosis: (0) No Elevated Cardiac Markers: (0) No ST Deviation Greater than 0.5mm: (0) No KIANNA Score: 1 ED Medical Decision Making - Lab Data Result diagrams: 08/10/20 01:30 08/10/20 01:30 - Radiology Data Radiology results: report reviewed, image reviewed - Medical Decision Making Cardiology consult from last month, 06/2020: The patient is a 39-year-old man who is admitted to the hospital with chest pain. His chest pain is localized to the left upper chest and left shoulder. The pain is positional, worse with his turning to the left side of his thorax. Most notably, the patient has marked reduction of range of motion at the left shoulder, unable to abduct his arm more than 30 to 45 degrees. He experiences severe discomfort on reaching forward with his left arm. He has no prior cardiac history. A cardiac catheterization 5 years ago at [facility] reported normal coronary arteries. Following that he has had multiple admissions for atypical chest pain, followed by serial, negative thallium stress tests. The patient's medications include Plavix therapy, which is used as a substitute antiplatelet therapy for his aspirin allergy, no indication of previous coronary artery disease. Discharge SUmmary from 03/2018: Hospitalization Reason for admission: left sided weakness Condition: Stable Pertinent studies: CT, MRI head normal Hospital course: Patient was admitted to the floor with stroke like symptoms with left sided weakness. Patient was faking and the degree of weakness he claimed and the P/E doesn't match. Patient said he can't move his arm but when I lift his arm and let it go he keep it hold it up. patient said he is not able to use his left leg but he can stand up. PT and neurology evaluated and they stated that the patient is faking. Pt seen for right-sided weakness by me in 09/2019. Stroke alert was called. Seen and evaluated by teleneurologist. 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 Pt did not undergo further stroke workup Tonight, patient reports 3-week history of right-sided weakness. Witnessed patient using his right side, despite him saying that it is completely paralyzed. Patient resist against me with his right arm when I lift it pass ively, and will not allow it to drop onto his face. CT head negative for any acute findings. Patient appears to have some element of conversion again tonight. At any rate, this is been ongoing x3 weeks. Patient also reported some chest pain that seems to be atypical. Stating that it is worse when drinking liquids and with certain positions. EKG is normal, troponin is negative. Patient was seen and cleared by cardiology last month, noting that he had a normal heart cath 5 years ago, and no previous history of coronary artery disease. Will discharge at this time. Outpatient follow-up with PCP advised. Critical care attestation.: If time is entered above; I have spent that time in minutes in the direct care of this critically ill patient, excluding procedure time. ED Disposition Clinical Impression: Right sided weakness, Chest pain Disposition: DC-01 TO HOME OR SELFCARE Is pt being admited?: No Condition: Stable Instructions: Nonspecific Chest Pain, Adult, Weakness, [id number] Referrals: PRIMARY CAREMD [Primary Care Provider] - 3-5 Days Time of Disposition: 04:25
--- NOTE | 2020-08-10 04:09 | Cat Scan Report ---
CT head without contrast INDICATION : Pt states RIGHT hemiparesis x 3 weeks and dizziness. TECHNIQUE: Axial imaging performed from the skull apex through the skull base without the use of con trast. All CT scans at this location are performed using CT dose reduction for ALARA by means of aut omated exposure control. COMPARISON: CT head from 10/09/2019 FINDINGS: Parenchyma: No acute intracranial hemorrhage or parenchymal abnormality. Ventricles: Ventricles are normal in size and appear symmetric. Soft tissues: Soft tissues including the orbits appear normal. Bones: No acute osseous abnormality. Sinuses: Small mucous retention cysts in the maxillary sinuses. Remaining sinuses and mastoid air ce lls are clear. IMPRESSION: No acute abnormality. Signer Name: Sukhjinder Whitaker MD Signed: 08/10/2020 4:05 AM Workstation Name: [id number]
[2020-08-10 04:41] VITALS: BP 101/64
--- NOTE | 2020-08-12 09:30 | Electrocardiograph Report ---
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
== END 2020-08-10 04:45 | disposition home or self-care (01) ==
LOC: ED 00:52
DX: R07.9 Chest pain, unspecified (principal); R53.1 Weakness; I11.0 Hypertensive heart disease with heart failure; I50.9 Heart failure, unspecified; I25.2 Old myocardial infarction; E11.9 Type 2 diabetes mellitus without complications; J45.909 Unspecified asthma, uncomplicated; I48.91 Unspecified atrial fibrillation; F17.200 Nicotine dependence, unspecified, uncomplicated; Z79.899 Other long term (current) drug therapy; Z88.8 Allergy status to other drugs, medicaments and biological substances; Z86.73 Personal history of transient ischemic attack (TIA), and cerebral infarction without residual deficits; Z98.890 Other specified postprocedural states
CPT/HCPCS: 36415; 70450; 80053; 84484; 85025; 93005

== ENCOUNTER 2020-09-06 06:35 | Observation (INO) | payer MEDICAID ==
[2020-09-06 07:11] LABS: Eosinophils # (Auto) 0.1 K/mm3 (0.0-0.4); Eosinophils % (Auto) 3.1 % (0.0-4.3); Hematocrit 33.5 % (35.5-45.6); Hemoglobin 10.8 gm/dl (11.8-15.2); Lymphocytes # (Auto) 1.3 K/mm3 (1.2-5.4); Mean Corpuscular HGB Conc 32 % (32-34); Mean Corpuscular Volume 80 fl (84-94); Monocytes # (Auto) 0.7 K/mm3 (0.0-0.8); Monocytes % (Auto) 15.4 % (0.0-7.3); Platelet Count 215 K/mm3 (140-440); Red Blood Count 4.17 M/mm3 (3.65-5.03); Red Cell Distribution Width 17.3 % (13.2-15.2)
[2020-09-06 07:37] LABS: Alanine Aminotransferase 21 units/L (7-56); Albumin 3.7 g/dL (3.9-5); BUN/Creatinine Ratio 16; Blood Urea Nitrogen 19 mg/dL (9-20); Calcium 8.7 mg/dL (8.4-10.2); Hemolysis Index 7
--- NOTE | 2020-09-06 08:14 | XRay Report ---
CHEST 2 VIEWS INDICATION: cp. COMPARISON: July 01, 2020 FINDINGS: Support devices: None. Heart: Within normal limits. Lungs: No acute air space or interstitial disease. Pleura: No significant pleural effusion. No pneumothorax. Additional findings: None. IMPRESSION: 1. No acute findings. Signer Name: Ingacio Hodgson MD Signed: 09/06/2020 8:09 AM Workstation Name: [id number]
[2020-09-06] MEDS ORDERED: CLOPIDOGREL 300 MG TAB PO ONE (12:39)
[2020-09-06] MEDS ORDERED: NITROGLYCERIN 2% OINT 1 GM TP ONE (12:39)
[2020-09-06] MEDS ORDERED: ONDANSETRON 4 MG/2 ML INJ IV ONE (12:39)
[2020-09-06] MEDS ORDERED: fentaNYL 100 MCG/2 ML INJ IV ONE (12:39)
--- NOTE | 2020-09-06 12:45 | Emergency Department Report ---
HPI - General Chief Complaint: Chest Pain Time Seen by Provider: 09/06/20 12:30 - HPI HPI: Room 5 The patient is a 39-year-old male present with a chief complaint of chest pain. Patient states for the past 4 days she should left-sided chest pain radiating to his jaw back and left upper extremity. Patient describes the pain as sharp in nature and associated with diaphoresis and shortness of breath. Patient denies nausea vomiting with this pain. Patient states he feels dizzy with this pain. Patient admits to nonproductive cough for the past 4 days. Patient states he is uncertain if he has had a fever. Patient currently gets his chest pain a score of 10/10. Of note the patient has a history of previous CVA states he has not taken any of his anticoagulants for approximately 1 month after running out. Patient states his last stress test occurred over 5 years ago and he has never had a cardiac catheterization ED Past Medical Hx - Past Medical History Hx Hypertension: Yes Hx CVA: Yes (TIAs, residiu. right side weakness) Hx Heart Attack/AMI: Yes Hx Congestive Heart Failure: Yes Hx Diabetes: Yes Hx Deep Vein Thrombosis: Yes (R-leg) Hx Pulmonary Embolism: Yes Hx Asthma: Yes Additional medical history: Ulcers, a-fib. strong family hx of cardiac disorders - Surgical History Hx Coronary Stent: Yes (2 in 2019) Additional Surgical History: Stent placement - Family History Family history: no significant - Social History Smoking Status: Former Smoker (None x1.5 years) Substance Use Type: None (Denies illicit drug use) - Medications Home Medications: Home Medications Medication Instructions Recorded Confirmed Last Taken Type Nitroglycerin [Nitrostat] 0.4 mg SL Q5M PRN 08/24/17 02/12/20 Unknown History Nicotine [Habitrol] 21 mg TD DAILY #30 patch 06/18/18 02/12/20 Unknown Rx Lansoprazole [Prevacid] 30 mg PO DAILY #30 capsule. 09/06/18 02/12/20 Unknown Rx traMADoL [Ultram 50 MG tab] 50 mg PO Q6HR PRN #10 tablet 02/13/20 Unknown Rx Albuterol Mdi (or & Nicu Only) 2 puff IH QID PRN #8.5 gram 04/28/20 Unknown Rx [ProAir HFA Inhaler] Docusate Sodium [Colace CAP] 100 mg PO BID #14 capsule 04/28/20 Unknown Rx Ferrous Gluconate [Ferrous 324 mg PO TID #20 tablet 04/28/20 Unknown Rx Gluconate 324 MG] Clopidogrel [Plavix] 75 mg PO QDAY #30 tablet 07/01/20 Unknown Rx carvediloL [Coreg] 3.125 mg PO BID #60 tablet 07/01/20 Unknown Rx traMADoL [Ultram 50 MG tab] 50 mg PO Q6HR PRN #14 tablet 07/01/20 Unknown Rx ED Review of Systems ROS: Stated complaint: CHEST PAIN Other details as noted in HPI Constitutional: diaphoresis, fever (?) Eyes: denies: eye pain ENT: denies: throat pain Respiratory: shortness of breath Cardiovascular: chest pain Endocrine: no symptoms reported Gastrointestinal: denies: nausea, vomiting Genitourinary: denies: dysuria Musculoskeletal: back pain Neurological: denies: headache Physical Exam - Physical Exam Vital Signs: Vital Signs 09/06/20 06:40 Temperature 98.7 F Pulse Rate 96 H Respiratory 18 Rate Blood Pressure 147/76 O2 Sat by Pulse 95 Oximetry Physical Exam: GENERAL: The patient is well-developed well-nourished male lying on stretcher not appearing to be in acute distress. [] HEENT: Normocephalic. Atraumatic. Extraocular motions are intact. Patient has moist mucous membranes. NECK: Supple. Trachea midline CHEST/LUNGS: Clear to auscultation. There is no respiratory distress noted. HEART/CARDIOVASCULAR: Regular. There is no tachycardia. There is no gallop rub or murmur. ABDOMEN: Abdomen is soft, nontender. Patient has normal bowel sounds. There is no abdominal distention. SKIN: There is no rash. There is no edema. There is no diaphoresis. NEURO: The patient is awake, alert, and oriented. The patient is cooperative. The patient has no focal neurologic deficits. The patient has normal speech MUSCULOSKELETAL: There is no evidence of acute injury. ED Course Vital Signs 09/06/20 06:40 Temperature 98.7 F Pulse Rate 96 H Respiratory 18 Rate Blood Pressure 147/76 O2 Sat by Pulse 95 Oximetry ED Medical Decision Making - Lab Data Result diagrams: 09/06/20 06:50 09/06/20 06:50 Laboratory Tests 09/06/20 09/06/20 09/06/20 06:50 06:50 10:33 WBC 4.6 RBC 4.17 Hgb 10.8 L Hct 33.5 L MCV 80 L MCH 26 L MCHC 32 RDW 17.3 H Plt Count 215 Lymph % (Auto) 28.0 [place] % (Auto) 15.4 H Eos % (Auto) 3.1 Baso % (Auto) 1.0 Lymph # (Auto) 1.3 [place] # (Auto) 0.7 Eos # (Auto) 0.1 Baso # (Auto) 0.0 Seg Neutrophils % 52.5 Seg Neutrophils # 2.4 Sodium 141 Potassium 3.8 Chloride 106.6 Carbon Dioxide 23 Anion Gap 15 BUN 19 Creatinine 1.2 Estimated GFR > 60 BUN/Creatinine Ratio 16 Glucose 109 H Calcium 8.7 Total Bilirubin 0.30 AST 18 ALT 21 Alkaline Phosphatase 114 Troponin T < 0.010 < 0.010 Total Protein 7.0 Albumin 3.7 L Albumin/Globulin Ratio 1.1 - EKG Data -: EKG Interpreted by Me EKG shows normal: sinus rhythm Rate: normal - EKG Data When compared to previous EKG there are: changes noted Interpretation: nonspecific ST-T wave mellissa (T wave inversions in leads V3, V4, V5, V6 new when compared to previous EKG dated 08/10/2020) - Radiology Data Radiology results: report reviewed (Chest x-ray), image reviewed (Chest x-ray) interpreted by me: Chest x-ray-no focal infiltrates, no pneumothorax. No foreign body seen [address] [address] XRay Report Signed Patient: DYAN SHEFFIELD JR MR#: [id number] : 1980 Acct:[id number] Age/Sex: 39 / M ADM Date: 09/06/20 Loc: ED Attending Dr: Abdias felton Physician: ED MD ERNIE Date of Service: 09/06/20 Procedure(s): XR chest routine 2V Accession Number(s): [id number] cc: ED MD ERNIE Fluoro Time In Minutes: CHEST 2 VIEWS INDICATION: cp. COMPARISON: July 01, 2020 FINDINGS: Support devices: None. Heart: Within normal limits. Lungs: No acute air space or interstitial disease. Pleura: No significant pleural effusion. No pneumothorax. Additional findings: None. IMPRESSION: 1. No acute findings. Signer Name: Ignacio Hodgson MD Signed: 09/06/2020 8:09 AM Workstation Name: [id number] Transcribed By: WG Dictated By: Ignacio Hodgson MD Electronically Authenticated By: Ignacio Hodgson MD Signed Date/Time: 09/06/20808 DD/ 8 TD/TT: Print Cancel - Differential Diagnosis ACS, pericarditis, GERD Critical care attestation.: If time is entered above; I have spent that time in minutes in the direct care of this critically ill patient, excluding procedure time. ED Disposition Clinical Impression: Chest pain Disposition: OP ADMIT IP TO THIS HOSP Is pt being admited?: Yes Does the pt Need Aspirin: No Condition: Fair Instructions: Nonspecific Chest Pain, Adult Referrals: PRIMARY CARE, [Primary Care Provider] - 3-5 Days Time of Disposition: 12:46 (Hospitalist paged) Heart Score - HEART Score History: Moderately suspicious EKG: Non-specific Age: < 45 Risk factors: > 3 risk factors or hx of atherosclerotic disease Troponin: < normal limit HEART Score: 4 - EKG Read Time Time EKG Completed: 06:42 EKG Read Time: 06:45
--- NOTE | 2020-09-06 13:07 | History and Physical Report ---
History of Present Illness Chief complaint: My chest and my arm has been hurting History of present illness: 39 YO Male with HTN, CVA, Obesity Hypoventilation, Non Cardiac Chest Pain, SD, DM, PE not on therapeutic anticoagulation, Paroxysmal AF, Asthma, Nicotine Dependence presents to ED for evaluation. Patient reports "my chest has been hurting". Pt states that he has experienced pain in his chest over the past 4 days with persistent symptoms over the same timeframe. Patient states that pain is 610/10, intermittent, localized to the left side, radiated to his jaw and back and shoulder, sharp in nature, associated with shortness of breath, not worsened with exertion, not relieved with rest. Patient transported to [facility] via private vehicle for further care and evaluation of the aforementioned symptoms. The patient was seen and evaluated in the emergency department. All lab and imaging studies reviewed. Patient found to have nonspecific changes on EKG. Patient placed in observation status and admitted to medical floor for further evaluation. Patient initiated on chest pain protocol as well as PPI therapy for symptoms consistent with gastroesophageal reflux. X-ray left shoulder ordered and is pending at time of admission due to suspected shoulder pain with referred pain to the chest and back.. Pt denies fever, chills, palpitations, NVE, hemoptysis, syncope, or productive cough, recent ill contacts, prolonged travel/immobility, unilateral leg swelling, calf pain, hemoptysis. Prior admis ramez on 07/01/2020 reviewed. All medication listed at time of admission has been reconciled. Past History Past Medical History: atrial fib, diabetes, hypertension, pulmonary embolism, stroke, other (See HPI) Past Surgical History: Other (Cardiac stent placement) Social history: single, smoking. denies: alcohol abuse Family history: CAD, hypertension Medications and Allergies Allergies Allergy/AdvReac Type Severity Reaction Status Date / Time acetaminophen [From Tylenol] Allergy Itching Verified 11/09/18 02:15 aspirin Allergy Hives Verified 11/09/18 02:15 Home Medications Medication Instructions Recorded Confirmed Last Taken Type Nitroglycerin [Nitrostat] 0.4 mg SL Q5M PRN 08/24/17 02/12/20 Unknown History Nicotine [Habitrol] 21 mg TD DAILY #30 patch 06/18/18 02/12/20 Unknown Rx Lansoprazole [Prevacid] 30 mg PO DAILY #30 capsule. 09/06/18 02/12/20 Unknown Rx traMADoL [Ultram 50 MG tab] 50 mg PO Q6HR PRN #10 tablet 02/13/20 Unknown Rx Albuterol Mdi (or & Nicu Only) 2 puff IH QID PRN #8.5 gram 04/28/20 Unknown Rx [ProAir HFA Inhaler] Docusate Sodium [Colace CAP] 100 mg PO BID #14 capsule 04/28/20 Unknown Rx Ferrous Gluconate [Ferrous 324 mg PO TID #20 tablet 04/28/20 Unknown Rx Gluconate 324 MG] Clopidogrel [Plavix] 75 mg PO QDAY #30 tablet 07/01/20 Unknown Rx carvediloL [Coreg] 3.125 mg PO BID #60 tablet 07/01/20 Unknown Rx traMADoL [Ultram 50 MG tab] 50 mg PO Q6HR PRN #14 tablet 07/01/20 Unknown Rx Review of Systems Constitutional: no weight loss, no weight gain, no fever, no chills Ears, nose, mouth and throat: no ear pain, no ear discharge, no tinnitis, no de creased hearing, no nose pain, no nasal congestion Cardiovascular: chest pain, other (Shoulder pain, back pain), no orthopnea, no rapid/irregular heart beat, no lightheadedness, no shortness of breath, no dyspnea on exertion, no paroxysmal nocturnal dyspnea, no claudication, no phlebitis, no high blood pressure Respiratory: no cough, no cough with sputum, no shortness of breath Gastrointestinal: no abdominal pain, no nausea, no diarrhea, no constipation, no change in bowel habits Genitourinary Male: no flank pain, no discharge, no urinary frequency, no urinary hesitancy Rectal: no pain, no incontinence, no bleeding Musculoskeletal: no neck stiffness, no shooting arm pain, no arm numbness/tingling, no leg numbness/tingling Integumentary: no rash, no pruritis, no redness, no sores, no jaundice Psychiatric: no anxiety, no memory loss, no insomnia, no change in appetite, no change in libido Endocrine: no cold intolerance, no polyphagia, no nocturia, no excessive sw eating, no flushing Hematologic/Lymphatic: no easy bruising, no easy bleeding Allergic/Immunologic: no urticaria, no wheezing Exam - Constitutional Vitals: Temp Pulse Resp BP Pulse Ox 98.7 F 96 H 18 147/76 95 09/06/20 06:40 09/06/20 06:40 09/06/20 06:40 09/06/20 06:40 09/06/20 06:40 General appearance: Present: mild distress, obese - EENT Eyes: Present: PERRL ENT: hearing intact, clear oral mucosa - Neck Neck: Present: supple, normal ROM - Respiratory Respiratory effort: normal Respiratory: bilateral: CTA - Cardiovascular Heart Sounds: Present: S1 & S2. Absent: rub, click - Extremities Extremities: pulses symmetrical, No edema Peripheral Pulses: within normal limits - Abdominal General gastrointestinal: Present: soft, non-tender, non-distended, normal bowel sounds Male genitourinary: Present: normal - Integumentary Integumentary: Present: clear, warm, dry - Musculoskeletal Musculoskeletal: gait normal, strength equal bilaterally - Psychiatric Psychiatric: appropriate mood/affect, intact judgment & insight - Neurologic Neurologic: CNII-XII intact, moves all extremities HEART Score - HEART Score EKG: Non-specific Age: < 45 Risk factors: > 3 risk factors or hx of atherosclerotic disease Troponin: Troponin T < 0.010 ng/mL (0.00-0.029) 09/06/20 10:33 Troponin: < normal limit Results - Labs CBC & Chem 7: 09/06/20 06:50 09/06/20 06:50 Labs: Abnormal lab results 09/06/20 09/06/20 Range/Units 06:50 06:50 Hgb 10.8 L (11.8-15.2) gm/dl Hct 33.5 L (35.5-45.6) % MCV 80 L (84-94) fl MCH 26 L (28-32) pg RDW 17.3 H (13.2-15.2) % [place] % (Auto) 15.4 H (0.0-7.3) % Glucose 109 H (75-100) mg/dL Albumin 3.7 L (3.9-5) g/dL Assessment and Plan - Patient Problems (1) Atypical chest pain Current Visit: Yes Status: Acute Plan to address problem: Serial cardiac enzymes, EKG, remote telemetry, suspect chest wall pain or referred pain from left shoulder. Continue medical management, NSAID therapy, supportive care. (2) Costochondritis Current Visit: No Status: Acute Plan to address problem: Supportive care, NSAID therapy as clinically indicated, pain control. Outp atient physical therapy (3) Gastroesophageal reflux disease Current Visit: Yes Status: Acute Qualifiers: Esophagitis presence: without esophagitis Qualified Code(s): K21.9 - Gastro-esophageal reflux disease without esophagitis Plan to address problem: PPI therapy, supportive care, Carafate twice daily, outpatient GI follow-up for endoscopy evaluation. (4) Nicotine dependence Current Visit: Yes Status: Acute Qualifiers: Nicotine product type: cigarettes Substance use status: in withdrawal Qualified Code(s): F17.213 - Nicotine dependence, cigarettes, with withdrawal Plan to address problem: Smoking cessation counseling, supportive care, behavior change counseling, +15 minutes. (5) Obesity (BMI 30-39.9) Current Visit: Yes Status: Acute Plan to address problem: Balanced diet, increase physical activity discharge, balanced dietary counseling, carbohydrate counting, calculation macronutrients, outpatient pulmonary follow-up for sleep study. +15 minutes behavior change counseling. (6) Osteoarthritis of shoulder Current Visit: Yes Status: Acute Plan to address problem: X-ray shoulder, supportive care, NSAID therapy, outpatient orthopedic surgery follow-up. (7) DVT prophylaxis Current Visit: Yes Status: Acute Plan to address problem: SCD to bilateral lower extremities while in bed, patient is ambulatory.
[2020-09-06] MEDS ORDERED: ACETAMINOPHEN 325 MG TAB PO PRN (13:33)
[2020-09-06] MEDS ORDERED: ALBUTEROL 2.5 MG/3 ML NEBU IH PRN (13:33)
[2020-09-06] MEDS ORDERED: NITROGLYCERIN 0.4 MG TAB SUBL SL PRN (13:34)
[2020-09-06] MEDS ORDERED: ONDANSETRON 4 MG/2 ML INJ IV PRN (14:00)
--- NOTE | 2020-09-06 16:16 | XRay Report ---
LEFT SHOULDER 3 VIEWS INDICATION: pain. COMPARISON: None. IMPRESSION: No acute osseous or soft tissue abnormality. No significant DJD. Signer Name: Franklin Cabrera Jr, MD Signed: 09/06/2020 4:09 PM Workstation Name: [id number]
[2020-09-06] MEDS: FERROUS GLUCONATE 324 MG TAB PO SCH ×2 (17:14→22:25)
[2020-09-06] MEDS: SUCRALFATE 1 GM/10 ML ORAL LIQD PO SCH ×3 (17:56→22:28)
[2020-09-06] MEDS: traMADol 50 MG TAB PO PRN (22:24)
[2020-09-06] MEDS: DOCUSATE SODIUM 100 MG CAP PO SCH (22:25)
[2020-09-06] MEDS: FAMOTIDINE 10 MG TAB PO SCH (22:25)
[2020-09-06] MEDS: carvediloL 3.125 MG TAB PO SCH (22:35)
[2020-09-07] MEDS: traMADol 50 MG TAB PO PRN (04:09)
[2020-09-07 06:13] LABS: BUN/Creatinine Ratio 15; Blood Urea Nitrogen 16 mg/dL (9-20); Calcium 8.2 mg/dL (8.4-10.2); Hemolysis Index 4
[2020-09-07] MEDS: FERROUS GLUCONATE 324 MG TAB PO SCH ×2 (08:10→15:37)
[2020-09-07] MEDS: SUCRALFATE 1 GM/10 ML ORAL LIQD PO SCH ×3 (08:10→12:36)
[2020-09-07] MEDS ORDERED: NICOTINE 21 MG/24 HR PATCH TD SCH (10:00)
[2020-09-07] MEDS ORDERED: CLOPIDOGREL 75 MG TAB PO SCH (10:00)
--- NOTE | 2020-09-07 10:20 | Electrocardiograph Report ---
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
--- NOTE | 2020-09-07 10:31 | Electrocardiograph Report ---
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
[2020-09-07] MEDS: carvediloL 3.125 MG TAB PO SCH (10:44)
[2020-09-07] MEDS: DOCUSATE SODIUM 100 MG CAP PO SCH (10:44)
[2020-09-07] MEDS: FAMOTIDINE 10 MG TAB PO SCH (10:44)
--- NOTE | 2020-09-07 13:18 | Consultation ---
History of Present Illness Consult date: 09/07/20 Consult reason: chest pain History of present illness: This is a 39-year old M admitted with atypical chest pain. Of note, patient had multiple hospital visits with similar symptoms. Chest pain is poorly characterized, nonexertional. Pain is worse with position change associated with left shoulder and neck pain. Serial troponin measurements are normal. 12-lead ECG is normal sinus rhythm. No acute St or T wave changes. There is no history of coronary artery disease. In 2017, he underwent a cardiac catheterization at [facility] that documents angiographically normal coronary arteries. Home medication lists Plavix 75 mg daily as a substitute for his aspirin allergy and primary prevention of cardiovascular disease. He has had multiple thallium stress test that have all been negative. Serial echocardiograms have documented normal left ventricular systolic function. Past History Social history: single, smoking. denies: alcohol abuse Family history: CAD, hypertension Medications and Allergies Allergies Allergy/AdvReac Type Severity Reaction Status Date / Time acetaminophen [From Tylenol] Allergy Itching Verified 11/09/18 02:15 aspirin Allergy Hives Verified 11/09/18 02:15 Home Medications Medication Instructions Recorded Confirmed Last Taken Type Nitroglycerin [Nitrostat] 0.4 mg SL Q5M PRN 08/24/17 02/12/20 Unknown History Nicotine [Habitrol] 21 mg TD DAILY #30 patch 06/18/18 02/12/20 Unknown Rx Lansoprazole [Prevacid] 30 mg PO DAILY #30 capsule. 09/06/18 02/12/20 Unknown Rx traMADoL [Ultram 50 MG tab] 50 mg PO Q6HR PRN #10 tablet 02/13/20 Unknown Rx Albuterol Mdi (or & Nicu Only) 2 puff IH QID PRN #8.5 gram 04/28/20 Unknown Rx [ProAir HFA Inhaler] Docusate Sodium [Colace CAP] 100 mg PO BID #14 capsule 04/28/20 Unknown Rx Ferrous Gluconate [Ferrous 324 mg PO TID #20 tablet 04/28/20 Unknown Rx Gluconate 324 MG] Clopidogrel [Plavix] 75 mg PO QDAY #30 tablet 07/01/20 Unknown Rx carvediloL [Coreg] 3.125 mg PO BID #60 tablet 07/01/20 Unknown Rx traMADoL [Ultram 50 MG tab] 50 mg PO Q6HR PRN #14 tablet 07/01/20 Unknown Rx Active Meds: Active Medications Albuterol (Albuterol 2.5 Mg/3 Ml Nebu) 2.5 mg IH Q4HRT PRN PRN Reason: Shortness Of Breath Carvedilol (Carvedilol 3.125 Mg Tab) 3.125 mg PO BID [facility] Last Admin: 09/07/20 10:44 Dose: 3.125 mg Documented by: Clopidogrel Bisulfate (Clopidogrel 75 Mg Tab) 75 mg PO QDAY [facility] Last Admin: 09/07/20 10:45 Dose: 75 mg Documented by: Docusate Sodium (Docusate Sodium 100 Mg Cap) 100 mg PO BID [facility] Last Admin: 09/07/20 10:44 Dose: 100 mg Documented by: Famotidine (Famotidine 10 Mg Tab) 10 mg PO BID [facility] Last Admin: 09/07/20 10:44 Dose: 10 mg Documented by: Ferrous Gluconate (Ferrous Gluconate 324 Mg Tab) 324 mg PO TID [facility] Last Admin: 09/07/20 08:10 Dose: 324 mg Documented by: Nicotine (Nicotine 21 Mg/24 Hr Patch) 21 mg TD DAILY [facility] Last Admin: 09/07/20 10:45 Dose: Not Given Documented by: Nitroglycerin (Nitroglycerin 0.4 Mg Tab Subl) 0.4 mg SL Q5M PRN PRN Reason: Chest Pain Ondansetron HCl (Ondansetron 4 Mg/2 Ml Inj) 4 mg IV Q8H PRN PRN Reason: Nausea And Vomiting Sodium Chloride (Sodium Chloride 0.9% 10 Ml Flush Syringe) 10 ml IV BID [facility] Last Admin: 09/06/20 22:35 Dose: 10 ml Documented by: Sodium Chloride (Sodium Chloride 0.9% 10 Ml Flush Syringe) 10 ml IV PRN PRN PRN Reason: LINE FLUSH Sucralfate (Sucralfate 1 Gm/10 Ml Oral Liqd) 1 gm PO ACHS [facility] Last Admin: 09/07/20 08:11 Dose: Not Given Documented by: Tramadol HCl (Tramadol 50 Mg Tab) 50 mg PO Q6HR PRN PRN Reason: PAIN Last Admin: 09/07/20 04:09 Dose: 50 mg Documented by: Physical Examination Vital Signs Temp Pulse Resp BP Pulse Ox 98.7 F 96 H 18 147/76 95 09/06/20 06:40 09/06/20 06:40 09/06/20 06:40 09/06/20 06:40 09/06/20 06:40 General appearance: no acute distress HEENT: Positive: PERRL Neck: Positive: trachea midline Cardiac: Positive: Reg Rate and Rhythm Lungs: Positive: Decreased Breath Sounds Neuro: Positive: Grossly Intact Results 09/06/20 06:50 09/07/20 05:14 Comprehensive Metabolic Panel 09/07/20 Range/Units 05:14 Sodium 138 (137-145) mmol/L Potassium 3.9 (3.6-5.0) mmol/L Chloride 105.0 (98-107) mmol/L Carbon Dioxide 24 (22-30) mmol/L BUN 16 (9-20) mg/dL Creatinine 1.1 (0.8-1.3) mg/dL Glucose 114 H (75-100) mg/dL Calcium 8.2 L (8.4-10.2) mg/dL Assessment and Plan - Patient Problems (1) Atypical chest pain Current Visit: Yes Status: Acute Plan to address problem: Chest pain, atypical musculoskeletal MPI June 2017 documents no ischemia. LHC at [facility] December 2013 reports normal coronaries, EF 65%. Aspirin allergy on clopidogrel for primary prevention of cardiovascular disease. Will defer to internal medicine for management of shoulder and neck pain.
--- NOTE | 2020-09-07 14:19 | Discharge Summary ---
Providers - Providers Date of Admission: 09/06/20 13:33 Date of discharge: 09/07/20 Attending physician: ALEJANDRO COOPER 09/07/20 10:34 Consult to Physician [CONS] Routine Comment: Consulting Provider: LLUVIA RUFF Physician Instructions: Reason For Exam: chest pain Primary care physician: ENVIRONMENTAL OFFICER Hospitalization Condition: Fair Pertinent studies: Chest x-ray: Shoulder x-ray Hospital course: This is a 39-year old M with a history of hypertension diabetes admitted with atypical chest pain. Of note, patient had multiple hospital visits with similar symptoms. Chest pain is poorly characterized, nonexertional. Pain is worse with position change associated with left shoulder and neck pain. Serial troponin measurements are normal. 12-lead ECG is normal sinus rhythm. No acute St or T wave changes. MPI June 2017 documents no ischemia, LHC at [facility] December 2016 reports normal coronaries, EF 65%. Cardiology recommended medical management and no further intervention. The patient's medications include Plavix therapy, which is used as a substitute antiplatelet therapy for his aspirin allergy, no indication of previous coronary artery disease. Patient was recommended to follow-up outpatient with his PCP and outpatient follow-up with the orthopedic surgeon for his left shoulder dysmotility. Disposition: DC-01 TO HOME OR SELFCARE Final Discharge Diagnosis (Prints w/discharge instructions): Atypical chest pain, likely due to costochondritis or musculoskeletal. Left shoulder dysmotility. Hypertension. Diabetes mellitus type 2. Obesity Time spent for discharge: 34 minutes Core Measure Documentation - Palliative Care Palliative Care/ Comfort Measures: Not Applicable - Core Measures Any of the following diagnoses?: none Exam - Physical Exam Narrative exam: GENERAL: well-developed morbidly obese male lying on bed appeared to be in no discomfort. HEENT: Normocephalic. Atraumatic. No conjunctival congestion or icterus. Patient has moist mucous membranes. NECK: Supple. Trachea midline. CHEST/LUNGS: Clear to auscultated bilaterally, breathing nonlabored. No wheezes crackles or rhonchi. HEART/CARDIOVASCULAR: Regular in rate and rhythm. S1 and S2 positive. ABDOMEN: Abdomen is soft, nontender. Patient has normal bowel sounds. SKIN: There is no rash. Warm and dry. NEURO: No focal motor deficit. Follows command. MUSCULOSKELETAL: No joint effusion or tenderness. Left shoulder with mild pain on elevation and circular movement EXTRIMITY: No edema, no cyanosis or clubbing. PSYCH: Cooperative. - Constitutional Vitals: Temp Pulse Resp BP Pulse Ox 99.0 F 77 18 112/45 95 09/07/20 11:43 09/07/20 11:43 09/07/20 11:43 09/07/20 11:43 09/07/20 11:43 Plan Activity: advance as tolerated Weight Bearing Status: Weight Bear as Tolerated Diet: low fat, low salt, diabetic Additional Instructions: Follow-up with orthopedic surgeon for your chronic neck pain and left shoulder pain. Follow up with: PRIMARY CAREMD [Primary Care Provider] - 3-5 Days URBANO CROCKER MD [Staff Physician] - 7 Days Prescriptions: traMADoL [Ultram 50 MG tab] 50 mg PO Q6HR PRN #10 tablet PRN Reason: PAIN
[2020-09-07 17:23] VITALS: BP 151/61
== END 2020-09-07 17:44 | disposition home or self-care (01) ==
LOC: ED 06:35 → 4A 13:33
PROVIDERS: ADMIT Internal Medicine; ATTEND Internal Medicine
DX: R07.89 Other chest pain (principal); M94.0 Chondrocostal junction syndrome [Tietze]; K21.9 Gastro-esophageal reflux disease without esophagitis; I11.0 Hypertensive heart disease with heart failure; I50.9 Heart failure, unspecified; E11.9 Type 2 diabetes mellitus without complications; I48.91 Unspecified atrial fibrillation; E66.9 Obesity, unspecified; M19.012 Primary osteoarthritis, left shoulder; F17.213 Nicotine dependence, cigarettes, with withdrawal; Z86.718 Personal history of other venous thrombosis and embolism; Z95.1 Presence of aortocoronary bypass graft; Z68.39 Body mass index [BMI] 39.0-39.9, adult; Z86.73 Personal history of transient ischemic attack (TIA), and cerebral infarction without residual deficits; Z86.711 Personal history of pulmonary embolism
CPT/HCPCS: 36415; 71046; 73030; 80048; 80053; 82962; 84484; 85025; 93005; 99285; G0378

== ENCOUNTER 2020-09-12 03:22 | Emergency (ER) | payer MEDICAID ==
[2020-09-12] MEDS ORDERED: ASPIRIN 325 MG TAB PO ONE (03:33)
--- NOTE | 2020-09-12 04:36 | XRay Report ---
CHEST 2 VIEWS 0347 INDICATION / CLINICAL INFORMATION: chest pain, cough COMPARISON: 09/06/2020 FINDINGS: SUPPORT DEVICES: None. HEART / MEDIASTINUM: No significant abnormality. LUNGS / PLEURA: Lateral view is mildly blurred by motion. PA view shows poor degree of inspiration. B asilar densities probably related to atelectasis and crowding of vessels given the degree of inspirat ion. Mild developing infiltrate is not fully excluded but is not favored. No pleural effusions are se en. No pneumothorax. ADDITIONAL FINDINGS: No significant additional findings. Signer Name: German Avendaño MD Signed: 09/12/2020 4:32 AM Workstation Name: [id number]
[2020-09-12 04:50] LABS: Basophils # (Auto) 0.1 K/mm3 (0.0-0.1); Basophils % (Auto) 1.1 % (0.0-1.8); Eosinophils # (Auto) 0.1 K/mm3 (0.0-0.4); Eosinophils % (Auto) 2.6 % (0.0-4.3); Hematocrit 34.5 % (35.5-45.6); Hemoglobin 11.2 gm/dl (11.8-15.2); Lymphocytes % (Auto) 21.5 % (13.4-35.0); Mean Corpuscular HGB Conc 32 % (32-34); Mean Corpuscular Volume 80 fl (84-94); Monocytes # (Auto) 0.7 K/mm3 (0.0-0.8); Monocytes % (Auto) 14.3 % (0.0-7.3); Platelet Count 212 K/mm3 (140-440); Red Blood Count 4.29 M/mm3 (3.65-5.03); Red Cell Distribution Width 17.5 % (13.2-15.2)
[2020-09-12 05:14] LABS: Alanine Aminotransferase 22 units/L (7-56); Albumin 4.3 g/dL (3.9-5); BUN/Creatinine Ratio 13; Blood Urea Nitrogen 15 mg/dL (9-20); Calcium 8.8 mg/dL (8.4-10.2); Hemolysis Index 11
[2020-09-12] MEDS ORDERED: fentaNYL 100 MCG/2 ML INJ IV ONE (06:53)
[2020-09-12] MEDS ORDERED: ONDANSETRON 4 MG/2 ML INJ IV ONE (06:53)
--- NOTE | 2020-09-12 07:02 | Emergency Department Report ---
HPI - General Chief Complaint: Chest Pain Time Seen by Provider: 09/12/20 06:42 - HPI HPI: Room 21 The patient is a 39-year-old male present with a chief complaint of chest pain. Patient was seen and admitted to the hospital by myself on 09/06/2020 for chest pain. The patient returns to the emergency department stating he has had constant chest pain for the past 6 days radiating to his back neck and jaw. Patient states he has had an occasional cough has been productive of sputum. Patient is uncertain if he has had a fever. Review of cardiology consultation performed during last admission shows that the patient had a cardiac catheterization in 2017 that showed normal coronary arteries ED Past Medical Hx - Past Medical History Previous Medical History?: Yes Hx Hypertension: Yes Hx CVA: Yes (TIAs, residiu. right side weakness) Hx Heart Attack/AMI: Yes Hx Congestive Heart Failure: Yes Hx Diabetes: Yes Hx Deep Vein Thrombosis: Yes (R-leg) Hx Pulmonary Embolism: Yes Hx Headaches / Migraines: No Hx Seizures: No Hx Asthma: Yes Hx COPD: Yes (bronchitis) Hx Dementia: No Additional medical history: Ulcers, a-fib. strong family hx of cardiac disorders - Surgical History Past Surgical History?: Yes Additional Surgical History: Stent placement - Family History Family history: other - Social History Smoking Status: Never Smoker Substance Use Type: None (Denies illicit drug) - Medications Home Medications: Home Medications Medication Instructions Recorded Confirmed Last Taken Type Nitroglycerin [Nitrostat] 0.4 mg SL Q5M PRN 08/24/17 02/12/20 Unknown History Nicotine [Habitrol] 21 mg TD DAILY #30 patch 06/18/18 02/12/20 Unknown Rx Lansoprazole [Prevacid] 30 mg PO DAILY #30 capsule. 09/06/18 02/12/20 Unknown Rx Albuterol Mdi (or & Nicu Only) 2 puff IH QID PRN #8.5 gram 04/28/20 Unknown Rx [ProAir HFA Inhaler] Docusate Sodium [Colace CAP] 100 mg PO BID #14 capsule 04/28/20 Unknown Rx Ferrous Gluconate [Ferrous 324 mg PO TID #20 tablet 04/28/20 Unknown Rx Gluconate 324 MG] Clopidogrel [Plavix] 75 mg PO QDAY #30 tablet 07/01/20 Unknown Rx carvediloL [Coreg] 3.125 mg PO BID #60 tablet 07/01/20 Unknown Rx traMADoL [Ultram 50 MG tab] 50 mg PO Q6HR PRN #10 tablet 09/07/20 Unknown Rx Azithromycin [Zithromax Z-JOANA] 0 mg PO DAILY #6 tab 09/12/20 Unknown Rx traMADoL [Ultram] 50 mg PO Q6HR PRN #10 tablet 09/12/20 Unknown Rx ED Review of Systems ROS: Stated complaint: CHEST PAIN;LT ARM PAIN;JAW PAIN Other details as noted in HPI Constitutional: fever (?) Eyes: denies: eye pain ENT: denies: throat pain Respiratory: cough Cardiovascular: chest pain Endocrine: no symptoms reported Gastrointestinal: denies: abdominal pain Genitourinary: denies: dysuria Musculoskeletal: back pain Neurological: denies: headache Physical Exam - Physical Exam Vital Signs: Vital Signs 09/12/20 09/12/20 09/12/20 03:35 04:42 06:06 Temperature 99.2 F Pulse Rate 100 H 89 82 Respiratory 16 12 18 Rate Blood Pressure 128/86 145/56 115/79 [Right] O2 Sat by Pulse 99 99 98 Oximetry Physical Exam: GENERAL: The patient is well-developed well-nourished male lying on stretcher not appearing to be in acute distress. [] HEENT: Normocephalic. Atraumatic. Extraocular motions are intact. Patient has moist mucous membranes. NECK: Supple. Trachea midline CHEST/LUNGS: Clear to auscultation. There is no respiratory distress noted. HEART/CARDIOVASCULAR: Regular. There is no tachycardia. There is no gallop rub or murmur. ABDOMEN: Abdomen is soft, nontender. Patient has normal bowel sounds. There is no abdominal distention. SKIN: There is no rash. There is no edema. There is no diaphoresis. NEURO: The patient is awake, alert, and oriented. The patient is cooperative. The patient has no focal neurologic deficits. The patient has normal speech MUSCULOSKELETAL: There is no evidence of acute injury. ED Course Vital Signs 09/12/20 09/12/20 09/12/20 03:35 04:42 06:06 Temperature 99.2 F Pulse Rate 100 H 89 82 Respiratory 16 12 18 Rate Blood Pressure 128/86 145/56 115/79 [Right] O2 Sat by Pulse 99 99 98 Oximetry ED Medical Decision Making - Lab Data Result diagrams: 09/12/20 04:15 09/12/20 04:15 Laboratory Tests 09/12/20 09/12/20 09/12/20 04:15 04:15 07:10 WBC 4.7 RBC 4.29 Hgb 11.2 L Hct 34.5 L MCV 80 L MCH 26 L MCHC 32 RDW 17.5 H Plt Count 212 Lymph % (Auto) 21.5 [place] % (Auto) 14.3 H Eos % (Auto) 2.6 Baso % (Auto) 1.1 Lymph # (Auto) 1.0 L [place] # (Auto) 0.7 Eos # (Auto) 0.1 Baso # (Auto) 0.1 Seg Neutrophils % 60.5 Seg Neutrophils # 2.8 PT INR APTT D-Dimer Sodium 140 Potassium 3.7 Chloride 103.1 Carbon Dioxide 25 Anion Gap 16 BUN 15 Creatinine 1.2 Estimated GFR > 60 BUN/Creatinine Ratio 13 Glucose 142 H Calcium 8.8 Total Bilirubin 0.30 AST 19 ALT 22 Alkaline Phosphatase 122 Troponin T < 0.010 < 0.010 Total Protein 7.2 Albumin 4.3 Albumin/Globulin Ratio 1.5 09/12/20 09/12/20 07:10 09:28 WBC RBC Hgb Hct MCV MCH MCHC RDW Plt Count Lymph % (Auto) [place] % (Auto) Eos % (Auto) Baso % (Auto) Lymph # (Auto) [place] # (Auto) Eos # (Auto) Baso # (Auto) Seg Neutrophils % Seg Neutrophils # PT 15.5 H INR 1.25 H APTT 26.1 D-Dimer 424.47 H Sodium Potassium Chloride Carbon Dioxide Anion Gap BUN Creatinine Estimated GFR BUN/Creatinine Ratio Glucose Calcium Total Bilirubin AST ALT Alkaline Phosphatase Troponin T < 0.010 Total Protein Albumin Albumin/Globulin Ratio - EKG Data -: EKG Interpreted by Me EKG shows normal: sinus rhythm Rate: normal - EKG Data When compared to previous EKG there are: no significant change Interpretation: unchanged when compared t (09/06/2020) - Radiology Data Radiology results: report reviewed (Chest x-ray, CT chest), image reviewed (Chest x-ray, CT chest) interpreted by me: Chest x-ray-no focal infiltrates, no pneumothorax. No foreign body seen [facility] [address] [place] [address] XRay Report Signed Patient: DYAN SHEFFIELD JR MR#: [id number] : 1980 Acct:[id number] Age/Sex: 39 / M ADM Date: 09/12/20 Loc: ED Attending Dr: Ordering Physician: YARELY KLEIN MD Date of Service: 09/12/20 Procedure(s): XR chest routine 2V Accession Number(s): [id number] cc: YARELY KLEIN MD Fluoro Time In Minutes: CHEST 2 VIEWS 0347 INDICATION / CLINICAL INFORMATION: chest pain, cough COMPARISON: 09/06/2020 FINDINGS: SUPPORT DEVICES: None. HEART / MEDIASTINUM: No significant abnormality. LUNGS / PLEURA: Lateral view is mildly blurred by motion. PA view shows poor degree of inspiration. Basilar densities probably related to atelectasis and crowding of vessels given the degree of inspiration. Mild developing infiltrate is not fully excluded but is not favored. No pleural effusions are seen. No pneumothorax. ADDITIONAL FINDINGS: No significant additional findings. Signer Name: German Avendaño MD Signed: 09/12/2020 4:32 AM Workstation Name: [id number] Transcribed By: GJ Dictated By: German wells MD Electronically Authenticated By: German Avendaño MD Signed Date/Time: 09/12/20431 DD/ 9 TD/TT: [facility] [address] [place] [address] Cat Scan Report Signed Patient: DYAN SHEFFIELD JR MR#: [id number] : 1980 Acct:[id number] Age/Sex: 39 / M ADM Date: 09/12/20 Loc: ED Attending Dr: Order ing Physician: MARILEE HARRINGTON MD Date of Service: 09/12/20 Procedure(s): CT angio chest Accession Number(s): [id number] cc: MARILEE HARRINGTON MD CTA CHEST WITH IV CONTRAST INDICATION: Chest pain. TECHNIQUE: Axial CT images were obtained through the chest after injection of 100 cc IV contrast. 3 plane MIP madalyn nstructions were produced. All CT scans at this location are performed using CT dose reduction for ALARA by means of automated exposure control. COMPARISON: None available. FINDINGS: PULMONARY ARTERIES: No pulmonary emboli. THORACIC AORTA: No acute abnormality. HEART: Normal. CORONARY ARTERIES: No significant calcification. PLEURA: No pleural effusion. No pneumothorax. LYMPH NODES: No significant adenopathy. LUNGS: Mosaic perfusion both lower lobes characteristic for small airways disease. ADDITIONAL FINDINGS: None. UPPER ABDOMEN: No acute findings. SKELETAL STRUCTURES: No significant osseous abnormality. IMPRESSION: 1. No CT evidence for pulmonary embolism. 2. Mosaic perfusion both lower lobes characteristic for small airways disease Signer Name: Rk Meza MD Signed: 09/12/2020 9:46 AM Workstation Name: [id number] Transcribed By: TL Dictated By: Rk Meza MD Electronically Authenticated By: Rk Meza MD Signed Date/Time: 09/12/20945 DD/ 3 TD/TT: Print Cancel - Differential Diagnosis ACS, PE, pericarditis, GERD, bronchitis, pneumonia Critical care attestation.: If time is entered above; I have spent that time in minutes in the direct care of this critically ill patient, excluding procedure time. ED Disposition Clinical Impression: Atypical chest pain, Bronchitis Disposition: DC-01 TO HOME OR SELFCARE Is pt being admited?: No Does the pt Need Aspirin: No Condition: Stable Instructions: Nonspecific Chest Pain, Adult, Chronic Bronchitis (ED) Additional Instructions: Return to the emergency department should you develop worsening symptoms, inability to tolerate food or liquids, high fever or any other concerns Prescriptions: traMADoL [Ultram] 50 mg PO Q6HR PRN #10 tablet PRN Reason: Pain Azithromycin [Zithromax Z-JOANA] 0 mg PO DAILY #6 tab Referrals: RIGO CARTER MD [Primary Care Provider] - 3-5 Days Time of Disposition: 10:49 Heart Score - HEART Score History: Slightly suspicious EKG: Non-specific Age: < 45 Risk factors: 1-2 risk factors Troponin: < normal limit HEART Score: 2 - EKG Read Time Time EKG Completed: 03:43 EKG Read Time: 03:45
[2020-09-12 08:10] LABS: INR 1.25 (0.87-1.13)
[2020-09-12 08:11] LABS: Partial Thromboplastin Time 26.1 Sec. (24.2-36.6)
--- NOTE | 2020-09-12 09:50 | Cat Scan Report ---
CTA CHEST WITH IV CONTRAST INDICATION: Chest pain. TECHNIQUE: Axial CT images were obtained through the chest after injection of 100 cc IV contrast. 3 plane MIP re constructions were produced. All CT scans at this location are performed using CT dose reduction for ALARA by means of automated exposure control. COMPARISON: None available. FINDINGS: PULMONARY ARTERIES: No pulmonary emboli. THORACIC AORTA: No acute abnormality. HEART: Normal. CORONARY ARTERIES: No significant calcification. PLEURA: No pleural effusion. No pneumothorax. LYMPH NODES: No significant adenopathy. LUNGS: Mosaic perfusion both lower lobes characteristic for small airways disease. ADDITIONAL FINDINGS: None. UPPER ABDOMEN: No acute findings. SKELETAL STRUCTURES: No significant osseous abnormality. IMPRESSION: 1. No CT evidence for pulmonary embolism. 2. Mosaic perfusion both lower lobes characteristic for small airways disease Signer Name: Rk Meza MD Signed: 09/12/2020 9:46 AM Workstation Name: [id number]
[2020-09-12 10:55] VITALS: BP 136/93
--- NOTE | 2020-09-14 10:27 | Electrocardiograph Report ---
[facility] Test Date: 2020-09-12 Test Time: 03:43:19 Pat Name: DYAN SHEFFIELD JR Department: Room: Gender: M Check Totaler: JOSÉ : 1980 Requested By: MARILEE HARRINGTON Order Number: [id number] Reading MD: Travis Velasco Measurements Intervals [place] Rate: 95 P: 51 FL: 153 QRS: 84 QRSD: 78 T: -3 QT: 320 QTc: 403 Interpretive Statements Sinus rhythm Compared to ECG 09/07/2020 06:45:34 T-wave abnormality no longer present Electronically Signed On 09-14-2020 10:26:47 EDT by Travis Velasco
== END 2020-09-12 10:55 | disposition home or self-care (01) ==
LOC: ED 03:22
DX: J40 Bronchitis, not specified as acute or chronic (principal); R07.89 Other chest pain; I13.0 Hypertensive heart and chronic kidney disease with heart failure and stage 1 through stage 4 chronic kidney disease, or unspecified chronic kidney disease; E11.22 Type 2 diabetes mellitus with diabetic chronic kidney disease; N18.9 Chronic kidney disease, unspecified; I50.9 Heart failure, unspecified; Z86.718 Personal history of other venous thrombosis and embolism; Z86.711 Personal history of pulmonary embolism; Z88.6 Allergy status to analgesic agent; Z79.899 Other long term (current) drug therapy; Z98.890 Other specified postprocedural states
CPT/HCPCS: 36415; 71046; 71275; 80053; 84484; 85025; 85379; 85610; 85730; 93005; 96374; 96375; 99284; J2405; J3010; Q9967

== ENCOUNTER 2020-10-02 01:18 | Emergency (ER) | payer MEDICAID ==
[2020-10-02] MEDS ORDERED: ASPIRIN 325 MG TAB PO ONE (01:38)
[2020-10-02 02:04] LABS: Basophils % (Auto) 1.1 % (0.0-1.8); Eosinophils # (Auto) 0.1 K/mm3 (0.0-0.4); Eosinophils % (Auto) 2.8 % (0.0-4.3); Hematocrit 31.5 % (35.5-45.6); Hemoglobin 10.1 gm/dl (11.8-15.2); Lymphocytes # (Auto) 0.8 K/mm3 (1.2-5.4); Lymphocytes % (Auto) 26.8 % (13.4-35.0); Mean Corpuscular HGB Conc 32 % (32-34); Mean Corpuscular Volume 81 fl (84-94); Monocytes # (Auto) 0.4 K/mm3 (0.0-0.8); Monocytes % (Auto) 14.1 % (0.0-7.3); Platelet Count 205 K/mm3 (140-440); Red Blood Count 3.91 M/mm3 (3.65-5.03); Red Cell Distribution Width 18.1 % (13.2-15.2)
[2020-10-02 02:29] LABS: Alanine Aminotransferase 20 units/L (7-56); BUN/Creatinine Ratio 13; Blood Urea Nitrogen 15 mg/dL (9-20); Calcium 8.5 mg/dL (8.4-10.2); Hemolysis Index 5
--- NOTE | 2020-10-02 02:52 | XRay Report ---
CHEST 2 VIEWS, 10/02/2020 1:28 AM INDICATION: Chest pain COMPARISON: Chest radiograph, 09/12/2020 FINDINGS: Support devices: None. Heart: The cardiac silhouette is normal in size. Lungs/pleura: Faint bilateral interstitial prominence is again noted and appear similar to the previo us study. No focal consolidation or large pleural effusion is identified. Additional findings: No significant acute abnormality. IMPRESSION: 1. Prominent interstitial markings that may suggest mild venous congestion without evidence of overt pulmonary edema. Signer Name: Jolanta Hinkle MD Signed: 10/02/2020 2:48 AM Workstation Name: [id number]
--- NOTE | 2020-10-02 08:43 | Emergency Department Report ---
ED General Adult HPI - General Chief complaint: Chest Pain Stated complaint: CHEST PAIN PUI?: No Time Seen by Provider: 10/02/20 08:11 Source: patient, RN notes reviewed, old records reviewed Mode of arrival: Ambulatory Limitations: No Limitations - History of Present Illness Initial comments: The patient was evaluated in the emergency department for symptoms described in the history of present illness. He/she was evaluated in the context of the global COVID-19 pandemic, which necessitated consideration that the patient sariah ht be at risk for infection with the virus that causes COVID-19. Institutional protocols and algorithms that pertain to the evaluation of patients at risk for COVID-19 are in a state of rapid change based on information released by regulatory bodies including the CDC and federal and state organizations. These policies and algorithms were followed during the patient's care in the emergency department. Please note that these policies, procedures and recommendations changed on a rapid basis. The patient is a 39-year-old gentleman. The patient has been admitted to this hospital multiple times for chest pain evaluation. As per cardiology documentation from August 2020 "There is no history of coronary artery disease. In 2017, he underwent a cardiac catheterization at [facility] that documents angiographically normal coronary arteries. Home medications list Plavix 75 mg daily as a substitute for aspirin allergy, and primary prevention of cardiovascular disease. He has had multiple thallium stress test that have all been negative. Serial echocardiograms have demonstra juan daniel normal left ventricular systolic function." Cardiology's recommendations last month indicated no plan for repeat ischemic evaluation. In addition, this patient had a CT angiogram of the chest last month which was negative for pulmonary embolism, or pneumonia. Cardiology opined that pain is atypical, likely musculoskeletal The patient presents to the ER today with atypical complaint of left-sided chest pain, that most of the left neck, and left arm. He denies vomiting or diaphoresis. He denies travel, surgery, immobilization, posterior leg pain or leg swelling. He denies diaphoresis, and new/different exertional shortness of breath. He is right-hand dominant. Unfortunately, he reports allergy to acetaminophen, as well as aspirin. Denies headache, posterior neck pain, abdominal pain, urinary symptoms, loss of taste and smell, and Covid symptomatology. -: Gradual, hour(s), days(s), week(s) Location: chest, left Radiation: back, neck, extremity Quality: aching Consistency: intermittent Improves with: rest Worsens with: movement - Related Data Home Medications Medication Instructions Recorded Confirmed Last Taken Nitroglycerin [Nitrostat] 0.4 mg SL Q5M PRN 08/24/17 02/12/20 Unknown Previous Rx's Medication Instructions Recorded Last Taken Type Nicotine [Habitrol] 21 mg TD DAILY #30 patch 06/18/18 Unknown Rx Albuterol Mdi (or & Nicu Only) 2 puff IH QID PRN #8.5 gram 04/28/20 Unknown Rx [ProAir HFA Inhaler] Docusate Sodium [Colace CAP] 100 mg PO BID #14 capsule 04/28/20 Unknown Rx Ferrous Gluconate [Ferrous 324 mg PO TID #20 tablet 04/28/20 Unknown Rx Gluconate 324 MG] Clopidogrel [Plavix] 75 mg PO QDAY #30 tablet 07/01/20 Unknown Rx carvediloL [Coreg] 3.125 mg PO BID #60 tablet 07/01/20 Unknown Rx Azithromycin [Zithromax Z-JOANA] 0 mg PO DAILY #6 tab 09/12/20 Unknown Rx Lansoprazole [Prevacid] 30 mg PO DAILY #30 capsule. 10/02/20 Unknown Rx Allergies Allergy/AdvReac Type Severity Reaction Status Date / Time acetaminophen [From Tylenol] Allergy Itching Verified 11/09/18 02:15 aspirin Allergy Hives Verified 11/09/18 02:15 ED Review of Systems ROS: Stated complaint: CHEST PAIN Other details as noted in HPI Constitutional: denies: fever Eyes: denies: vision change ENT: denies: epistaxis Respiratory: denies: cough Cardiovascular: chest pain Gastrointestinal: denies: abdominal pain, nausea, vomiting Musculoskeletal: arthralgia, myalgia Neurological: denies: weakness Hematological/Lymphatic: denies: easy bleeding ED Past Medical Hx - Past Medical History Previous Medical History?: Yes Hx Hypertension: Yes Hx CVA: Yes (TIAs, residiu. right side weakness) Hx Heart Attack/AMI: Yes Hx Congestive Heart Failure: Yes Hx Diabetes: Yes Hx Deep Vein Thrombosis: Yes (R-leg) Hx Pulmonary Embolism: Yes Hx Headaches / Migraines: No Hx Seizures: No Hx Asthma: Yes Hx COPD: Yes (bronchitis) Hx Dementia: No Additional medical history: Ulcers, a-fib. strong family hx of cardiac disorders - Surgical History Past Surgical History?: Yes Hx Coronary Stent: Yes (2 in 2019) Additional Surgical History: Stent placement - Social History Smoking Status: Never Smoker Substance Use Type: None - Medications Home Medications: Home Medications Medication Instructions Recorded Confirmed Last Taken Type Nitroglycerin [Nitrostat] 0.4 mg SL Q5M PRN 08/24/17 02/12/20 Unknown History Nicotine [Habitrol] 21 mg TD DAILY #30 patch 06/18/18 02/12/20 Unknown Rx Albuterol Mdi (or & Nicu Only) 2 puff IH QID PRN #8.5 gram 04/28/20 Unknown Rx [ProAir HFA Inhaler] Docusate Sodium [Colace CAP] 100 mg PO BID #14 capsule 04/28/20 Unknown Rx Ferrous Gluconate [Ferrous 324 mg PO TID #20 tablet 04/28/20 Unknown Rx Gluconate 324 MG] Clopidogrel [Plavix] 75 mg PO QDAY #30 tablet 07/01/20 Unknown Rx carvediloL [Coreg] 3.125 mg PO BID #60 tablet 07/01/20 Unknown Rx Azithromycin [Zithromax Z-JOANA] 0 mg PO DAILY #6 tab 09/12/20 Unknown Rx Lansoprazole [Prevacid] 30 mg PO DAILY #30 capsule. 10/02/20 Unknown Rx ED Physical Exam - General Limitations: No Limitations General appearance: alert, in no apparent distress, obese - Head Head exam: Present: atraumatic, normocephalic - Eye Eye exam: Present: normal appearance, EOMI. Absent: nystagmus - ENT ENT exam: Present: normal exam, normal orophraynx, mucous membranes moist, normal external ear exam - Neck Neck exam: Present: normal inspection, tenderness (Reproducible left-sided paracervical and trapezius tenderness), full ROM - Respiratory Respiratory exam: Present: normal lung sounds bilaterally, chest wall tenderness. Absent: respiratory distress, wheezes, rales, rhonchi, stridor - Cardiovascular Cardiovascular Exam: Present: regular rate, normal rhythm, normal heart sounds. Absent: bradycardia, tachycardia, irregular rhythm, systolic murmur, diastolic murmur, rubs, gallop - GI/Abdominal GI/Abdominal exam: Present: soft. Absent: distended, tenderness, guarding, rebound, rigid, pulsatile mass - Rectal Rectal exam: Present: deferred - Extremities Exam Extremities exam: Present: normal inspection, full ROM, other (2+ pulses noted in the bilateral upper and lower extremities. There is no palpable cord. negative Homans sign. Muscular compartments are soft. The pelvis is stable.). Absent: pedal edema, calf tenderness - Back Exam Back exam: Present: normal inspection, muscle spasm, paraspinal tenderness. Absent: tenderness, CVA tenderness (R), CVA tenderness (L), vertebral tenderness - Neurological Exam Neurological exam: Present: alert, oriented X3, normal gait, other (No facial droop. Tongue midline. Extraocular movements intact bilaterally. Facial sensation intact to light touch in V1, V2, V3 distribution bilaterally. 5 and a 5 strength in 4 extremities. Sensation intact to light touch in 4 extremities.). Absent: motor sensory deficit - Psychiatric Psychiatric exam: Present: normal affect, normal mood - Skin Skin exam: Present: warm, dry, intact, normal color. Absent: rash ED Course Vital Signs 10/02/20 10/02/20 01:34 11:06 Temperature 98.3 F Pulse Rate 94 H Respiratory 18 Rate Blood Pressure 150/90 O2 Sat by Pulse 100 Oximetry O2 Sat by Pulse 99 Oximetry [ Digit-Finger] - Pulse Oximetry Interpretation Digit-Finger Initial Pulse Oximetry Readin O2 Sat by Pulse Oximetry: 99 Actions Taken: none ED Medical Decision Making - Lab Data Result diagrams: 10/02/20 01:48 10/02/20 01:48 Vital Signs 10/02/20 01:34 Temperature 98.3 F Pulse Rate 94 H Respiratory 18 Rate Blood Pressure 150/90 O2 Sat by Pulse 100 Oximetry Lab Results 10/02/20 10/02/20 10/02/20 Range/Units 01:48 01:48 05:16 WBC 3.1 L (4.5-11.0) K/mm3 RBC 3.91 (3.65-5.03) M/mm3 Hgb 10.1 L (11.8-15.2) gm/dl Hct 31.5 L (35.5-45.6) % MCV 81 L (84-94) fl MCH 26 L (28-32) pg MCHC 32 (32-34) % RDW 18.1 H (13.2-15.2) % Plt Count 205 (140-440) K/mm3 Lymph % (Auto) 26.8 (13.4-35.0) % [place] % (Auto) 14.1 H (0.0-7.3) % Eos % (Auto) 2.8 (0.0-4.3) % Baso % (Auto) 1.1 (0.0-1.8) % Lymph # (Auto) 0.8 L (1.2-5.4) K/mm3 [place] # (Auto) 0.4 (0.0-0.8) K/mm3 Eos # (Auto) 0.1 (0.0-0.4) K/mm3 Baso # (Auto) 0.0 (0.0-0.1) K/mm3 Seg Neutrophils % 55.2 (40.0-70.0) % Seg Neutrophils # 1.7 L (1.8-7.7) K/mm3 Sodium 145 (137-145) mmol/L Potassium 3.8 (3.6-5.0) mmol/L Chloride 109.5 H (98-107) mmol/L Carbon Dioxide 26 (22-30) mmol/L Anion Gap 13 mmol/L BUN 15 (9-20) mg/dL Creatinine 1.2 (0.8-1.3) mg/dL Estimated GFR > 60 ml/min BUN/Creatinine Ratio 13 % Glucose 79 (75-100) mg/dL Calcium 8.5 (8.4-10.2) mg/dL Total Bilirubin 0.20 (0.1-1.2) mg/dL AST 20 (5-40) units/L ALT 20 (7-56) units/L Alkaline Phosphatase 123 (35-129) units/L Troponin T < 0.010 < 0.010 (0.00-0.029) ng/mL Total Protein 6.2 L (6.3-8.2) g/dL Albumin 4.0 (3.9-5) g/dL Albumin/Globulin Ratio 1.8 % - EKG Data -: EKG Interpreted by Mt EKG shows normal: sinus rhythm Rate: normal - EKG Data When compared to previous EKG there are: no significant change 10/02/20 11:04 EKG #1 interpreted at 01: 57 Sinus rhythm, 90 bpm, borderline rightward, normal intervals, left ventricular hypertrophy/high left ventricular voltage. Q waves noted in inferior leads. This is an abnormal EKG. This is not a STEMI. This EKG appears to be unchanged from prior EKG from 09/12/2020. EKG #2, performed at 10: 23, negative for acute findings or changes, unchanged from prior EKG. - Radiology Data Radiology results: pending, report reviewed, image reviewed [facility] [address] [place] [address] XRay Report Signed Patient: DYAN SHEFFIELD JR MR#: [id number] : 1980 Acct:[id number] Age/Sex: 39 / M ADM Date: 10/02/20 Loc: ED Attending Dr: Ordering Physician: ED MD ERNIE Date of Service: 10/02/20 Procedure(s): XR chest routine 2V Accession Number(s): [id number] cc: ED DOCMD Fluoro Time In Minutes: CHEST 2 VIEWS, 10/02/2020 1:28 AM INDICATION: Chest pain COMPARISON: Chest radiograph, 09/12/2020 FINDINGS: Support devices: None. Heart: The cardiac silhouette is normal in size. Lungs/pleura: Faint bilateral interstitial promin ence is again noted and appear similar to the previous study. No focal consolidation or large pleural effusion is identified. Additional findings: No significant acute abnormality. IMPRESSION: 1. Prominent interstitial markings that may suggest mild venous congestion without evidence of overt pulmonary edema. Signer Name: Jolanta Hinkle MD Signed: 10/02/2020 2:48 AM Workstation Name: [id number] Transcribed By: EB Dictated By: Jolanta Hinkle MD Electronically Authenticated By: Jolanta Hinkle MD Signed Date/Time: 10/02/20247 DD/ 6 TD/TT: - Medical Decision Making Differential diagnosis, including but not limited to: GERD, gastritis, hiatal hernia, pneumonia, costochondritis, radiculopathy Assessment and plan: 39-year-old gentleman, who is not currently tachycardic, tachypneic or hypoxic, who denies DVT and pulmonary embolism risk factors, who is low risk by Wells criteria for pulmonary embolism, PERC negative EKG unchanged x2, troponin negative x2. Recently had CT scan of the chest which was negative for pulmonary embolism or acute findings. Patient has equal pulses in the upper and lower extremities, no pulsatile abdominal mass, and an unremarkable x-ray of the chest, therefore, aortic disease is very unlikely. Patient at low risk for major adverse cardiac event as per heart score. G cardiology recommendations from last month are reviewed and appreciated. Ischemic coronary artery disease is very unlikely. multiple reevaluations, patient resting comfortably in stretcher, in no acute distress, saturating 99% on room air. Unfortunately, he is allergic to both NSAIDs and acetaminophen. He will be treated accordingly, but do not see indication for narcotic therapy at this time Critical care attestation.: If time is entered above; I have spent that time in minutes in the direct care of this critically ill patient, excluding procedure time. ED Disposition Clinical Impression: Chest pain Disposition: DC-01 TO HOME OR SELFCARE Is pt being admited?: No Does the pt Need Aspirin: No Condition: Good Instructions: Nonspecific Chest Pain, Adult Additional Instructions: Please continue current outpatient medications. Avoid consumption of heavy, spicy foods, and alcohol. Please follow-up with a primary care doctor or curator within the next week. Please follow-up with a dance historian within the next month. Patient had laboratory studies and EKG today which were unchanged from prior evaluations, not consistent with heart attack, pneumonia, or blood clot in the lung. The patient also had a CT scan of his chest last month, which was negative for acute findings. It was also noted last month by the curator that evaluated the patient that he does not have a history of ischemic heart disease, and had a negative cardiac catheterization at [facility] in 2017. Therefore, the patient symptoms are very unlikely to be coming from ischemic heart disease, or any emergent condition. Patient may continue rest, ice, compression, elevation, physical therapy, rehabilitation, and follow-up as an outpatient. Please return to the emergency room right away with new pain, worsened pain, migration of pain, projectile vomiting, change in mental status, confusion, inability to tolerate liquid feeds, new, worsened or different symptoms not present on the initial emergency room evaluation. Referrals: LLUVIA RUFF MD [Staff Physician] - 3-5 Days WILDA DIAZ MD [Staff Physician] - 3-5 Days CAYETANO KUO MD [Staff Physician] - 3-5 Days Heart Score - HEART Score History: Slightly suspicious EKG: Non-specific Age: < 45 Risk factors: 1-2 risk factors Troponin: < normal limit HEART Score: 2 - EKG Read Time Time EKG Completed: 10:23 EKG Read Time: 10:23 - Critical Actions Critical Actions: 0-3 pts:0.9-1.7%risk of adverse cardiac event.Candidate for discharge
[2020-10-02] MEDS ORDERED: FAMOTIDINE 20 MG TAB PO ONE (09:57)
[2020-10-02] MEDS ORDERED: SUCRALFATE 1 GM/10 ML ORAL LIQD PO ONE (09:57)
[2020-10-02 12:09] VITALS: BP 100/60
--- NOTE | 2020-10-07 12:43 | Electrocardiograph Report ---
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
--- NOTE | 2020-10-07 12:49 | Electrocardiograph Report ---
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
== END 2020-10-02 12:07 | disposition home or self-care (01) ==
LOC: ED 01:18
DX: R07.89 Other chest pain (principal); I11.0 Hypertensive heart disease with heart failure; I50.9 Heart failure, unspecified; I25.2 Old myocardial infarction; E11.9 Type 2 diabetes mellitus without complications; J44.9 Chronic obstructive pulmonary disease, unspecified; Z98.890 Other specified postprocedural states; Z79.899 Other long term (current) drug therapy; Z88.8 Allergy status to other drugs, medicaments and biological substances
CPT/HCPCS: 36415; 71046; 80053; 84484; 85025; 93005

== ENCOUNTER 2020-10-21 00:15 | Emergency (ER) | payer MEDICAID ==
--- NOTE | 2020-10-21 01:16 | XRay Report ---
Right forearm 3 views INDICATION: Right forearm pain IMPRESSION: The right forearm appears intact. Signer Name: Silvano Jones MD Signed: 10/21/2020 1:11 AM Workstation Name: [id number]
== END 2020-10-21 01:35 | disposition left against medical advice (07) ==
LOC: ED 00:15
DX: M79.601 Pain in right arm (principal); Z53.21 Procedure and treatment not carried out due to patient leaving prior to being seen by health care provider

== ENCOUNTER 2020-10-26 02:33 | Emergency (ER) | payer MEDICAID ==
--- NOTE | 2020-10-26 04:06 | XRay Report ---
XR chest routine 2V INDICATION / CLINICAL INFORMATION: Chest Pain, sob, dizziness x 1 day COMPARISON: 11/01/2020 FINDINGS: SUPPORT DEVICES: None. HEART / MEDIASTINUM: No significant abnormality. LUNGS / PLEURA: Lungs are clear. Costophrenic sulci are sharp. No pneumothorax. ADDITIONAL FINDINGS: No significant additional findings. IMPRESSION: 1. No acute findings. Signer Name: Jluis Gallagher MD Signed: 10/26/2020 4:01 AM Workstation Name: [id number]
[2020-10-26 04:24] LABS: Basophils % (Auto) 0.9 % (0.0-1.8); Eosinophils # (Auto) 0.1 K/mm3 (0.0-0.4); Eosinophils % (Auto) 4.3 % (0.0-4.3); Hematocrit 30.8 % (35.5-45.6); Hemoglobin 9.8 gm/dl (11.8-15.2); Lymphocytes % (Auto) 31.3 % (13.4-35.0); Mean Corpuscular HGB Conc 32 % (32-34); Mean Corpuscular Volume 78 fl (84-94); Monocytes # (Auto) 0.4 K/mm3 (0.0-0.8); Monocytes % (Auto) 12.7 % (0.0-7.3); Red Blood Count 3.97 M/mm3 (3.65-5.03); Red Cell Distribution Width 17.7 % (13.2-15.2)
--- NOTE | 2020-10-26 04:35 | Emergency Department Report ---
ED Chest Pain HPI - General Chief Complaint: Chest Pain Stated Complaint: CHEST PAIN Source: patient Mode of arrival: Ambulatory Limitations: No Limitations - History of Present Illness Initial Comments: Mr. Haque is a 39 years old male who has has been admitted to this hospital multiple times for chest pain evaluation. Patient stated that his chest pain started 1 month ago. He describes his pain as sharp with no radiation. Patient denied any shortness of breath, fever or chills. No nausea or vomiting. As per cardiology documentation from August 2020 "There is no history of coronary artery disease. In 2017, he underwent a cardiac catheterization at [facility] that documents angiographically normal coronary arteries. Home medications list Plavix 75 mg daily as a substitute for aspirin allergy, and primary prevention of cardiovascular disease. He has had multiple thallium stress test that have all been negative. Serial echocardiograms have demons trated normal left ventricular systolic function." Cardiology's recommendations last month indicated no plan for repeat ischemic evaluation. In addition, this patient had a CT angiogram of the chest last month which was negative for pulmonary embolism, or pneumonia. Cardiology opined that pain is atypical, likely musculoskeleta MD Complaint: chest pain - Related Data Home Medications Medication Instructions Recorded Confirmed Last Taken Nitroglycerin [Nitrostat] 0.4 mg SL Q5M PRN 08/24/17 02/12/20 Unknown Previous Rx's Medication Instructions Recorded Last Taken Type Nicotine [Habitrol] 21 mg TD DAILY #30 patch 06/18/18 Unknown Rx Albuterol Mdi (or & Nicu Only) 2 puff IH QID PRN #8.5 gram 04/28/20 Unknown Rx [ProAir HFA Inhaler] Docusate Sodium [Colace CAP] 100 mg PO BID #14 capsule 04/28/20 Unknown Rx Ferrous Gluconate [Ferrous 324 mg PO TID #20 tablet 04/28/20 Unknown Rx Gluconate 324 MG] Clopidogrel [Plavix] 75 mg PO QDAY #30 tablet 07/01/20 Unknown Rx carvediloL [Coreg] 3.125 mg PO BID #60 tablet 07/01/20 Unknown Rx Azithromycin [Zithromax Z-JOANA] 0 mg PO DAILY #6 tab 09/12/20 Unknown Rx Lansoprazole [Prevacid] 30 mg PO DAILY #30 capsule. 10/02/20 Unknown Rx Allergies Allergy/AdvReac Type Severity Reaction Status Date / Time acetaminophen [From Tylenol] Allergy Itching Verified 11/09/18 02:15 aspirin Allergy Hives Verified 11/09/18 02:15 Heart Score - HEART Score History: Slightly suspicious EKG: Normal Age: < 45 Risk factors: 1-2 risk factors Troponin: < normal limit HEART Score: 1 - EKG Read Time Time EKG Completed: 02:53 EKG Read Time: 03:03 - Critical Actions Critical Actions: 0-3 pts:0.9-1.7%risk of adverse cardiac event.Candidate for discharge ED Review of Systems ROS: Stated complaint: CHEST PAIN Other details as noted in HPI Comment: All other systems reviewed and negative Respiratory: denies: cough, shortness of breath Cardiovascular: chest pain. denies: palpitations Gastrointestinal: denies: abdominal pain, nausea, vomiting Neurological: denies: headache, weakness, numbness, paresthesias, confusion ED Past Medical Hx - Past Medical History Hx Hypertension: Yes Hx CVA: Yes (TIAs, residiu. right side weakness) Hx Heart Attack/AMI: Yes Hx Congestive Heart Failure: Yes Hx Diabetes: Yes Hx Deep Vein Thrombosis: Yes (R-leg) Hx Pulmonary Embolism: Yes Hx Headaches / Migraines: No Hx Seizures: No Hx Asthma: Yes Hx COPD: Yes (bronchitis) Hx Dementia: No Additional medical history: Ulcers, a-fib. strong family hx of cardiac disorders - Surgical History Hx Coronary Stent: Yes (2 in 2019) Additional Surgical History: Stent placement - Social History Smoking Status: Unknown if ever smoked Substance Use Type: None - Medications Home Medications: Home Medications Medication Instructions Recorded Confirmed Last Taken Type Nitroglycerin [Nitrostat] 0.4 mg SL Q5M PRN 08/24/17 02/12/20 Unknown History Nicotine [Habitrol] 21 mg TD DAILY #30 patch 06/18/18 02/12/20 Unknown Rx Albuterol Mdi (or & Nicu Only) 2 puff IH QID PRN #8.5 gram 04/28/20 Unknown Rx [ProAir HFA Inhaler] Docusate Sodium [Colace CAP] 100 mg PO BID #14 capsule 04/28/20 Unknown Rx Ferrous Gluconate [Ferrous 324 mg PO TID #20 tablet 04/28/20 Unknown Rx Gluconate 324 MG] Clopidogrel [Plavix] 75 mg PO QDAY #30 tablet 07/01/20 Unknown Rx carvediloL [Coreg] 3.125 mg PO BID #60 tablet 07/01/20 Unknown Rx Azithromycin [Zithromax Z-JOANA] 0 mg PO DAILY #6 tab 09/12/20 Unknown Rx Lansoprazole [Prevacid] 30 mg PO DAILY #30 capsule. 10/02/20 Unknown Rx ED Physical Exam - General Limitations: No Limitations General appearance: alert, in no apparent distress - Head Head exam: Present: atraumatic, normocephalic, normal inspection - Eye Eye exam: Present: normal appearance, PERRL - ENT ENT exam: Present: normal exam, normal orophraynx, mucous membranes moist - Neck Neck exam: Present: normal inspection, full ROM. Absent: tenderness, meningismus - Respiratory Respiratory exam: Present: normal lung sounds bilaterally - Cardiovascular Cardiovascular Exam: Present: regular rate, normal rhythm, normal heart sounds - GI/Abdominal GI/Abdominal exam: Present: soft, normal bowel sounds. Absent: distended, ten derness, guarding, rebound, rigid, organomegaly, mass, bruit, pulsatile mass, hernia - Extremities Exam Extremities exam: Present: normal inspection, full ROM, normal capillary refill. Absent: tenderness - Back Exam Back exam: Present: normal inspection, full ROM. Absent: CVA tenderness (R), CVA tenderness (L) - Neurological Exam Neurological exam: Present: alert, oriented X3, CN II-XII intact - Psychiatric Psychiatric exam: Present: normal mood - Skin Skin exam: Present: warm, intact, normal color ED Course Vital Signs 10/26/20 03:21 Temperature 98.8 F Pulse Rate 93 H Respiratory 18 Rate Blood Pressure 127/79 O2 Sat by Pulse 99 Oximetry KIANNA score - Kianna Score Age > 65: (0) No Aspirin use within the Past 7 Days: (0) No 3 or more CAD Risk Factors: (1) Yes 2 or more Angina events in past 24 hrs: (0) No Known CAD with more than 50% Stenosis: (0) No Elevated Cardiac Markers: (0) No ST Deviation Greater than 0.5mm: (0) No KIANNA Score: 1 ED Medical Decision Making - Lab Data Result diagrams: 10/26/20 03:51 - EKG Data -: EKG Interpreted by [facility] EKG shows normal: sinus rhythm Rate: normal - EKG Data Interpretation: no acute changes - Radiology Data Radiology results: report reviewed - Medical Decision Making Mr. Haque is a 39 years old male who has has been admitted to this hospital multiple times for chest pain evaluation. Patient stated that his chest pain started 1 month ago. He describes his pain as sharp with no radiation. Patient denied any shortness of breath, fever or chills. No nausea or vomiting. As per cardiology documentation from August 2020 "There is no history of coronary artery disease. In 2017, he underwent a cardiac catheterization at [facility] that documents angiographically normal coronary arteries. Home medications list Plavix 75 mg daily as a substitute for aspirin allergy, and primary prevention of cardiovascular disease. He has had multiple thallium stress test that have all been negative. Serial echocardiograms have demonstrated normal left ventricular systolic function." Cardiology's recommendations last month indicated no plan for repeat ischemic evaluation. In addition, this patient had a CT angiogram of the chest last month which was negative for pulmonary embolism, or pneumonia. Cardiology opined that pain is atypical, likely musculoskeleta EKG is unremarkable. Chest x-ray is negative for acute finding. Labs reviewed and is unremarkable including a negative troponin. Patient given prescription for ketorolac and advised to follow-up with his primary doctor in the next 2 to 3 days and to return to the ER if he develop any new symptoms. Critical care attestation.: If time is entered above; I have spent that time in minutes in the direct care of this critically ill patient, excluding procedure time. ED Disposition Clinical Impression: Atypical chest pain Disposition: DC-01 TO HOME OR SELFCARE Is pt being admited?: No Condition: Stable Instructions: Nonspecific Chest Pain, Adult Referrals: PRIMARY CARE, [Primary Care Provider] - 3-5 Days
[2020-10-26 04:37] LABS: Platelet Count 235 K/mm3 (140-440)
[2020-10-26 04:43] LABS: BUN/Creatinine Ratio 12; Blood Urea Nitrogen 13 mg/dL (9-20); Calcium 9.3 mg/dL (8.4-10.2); Hemolysis Index 2
[2020-10-26 06:02] VITALS: BP 141/87
--- NOTE | 2020-10-27 17:52 | Electrocardiograph Report ---
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
== END 2020-10-26 06:00 | disposition home or self-care (01) ==
LOC: ED 02:33
DX: R07.89 Other chest pain (principal); I11.0 Hypertensive heart disease with heart failure; I50.9 Heart failure, unspecified; I25.2 Old myocardial infarction; E11.9 Type 2 diabetes mellitus without complications; J45.909 Unspecified asthma, uncomplicated; Z86.718 Personal history of other venous thrombosis and embolism; Z86.711 Personal history of pulmonary embolism; Z98.890 Other specified postprocedural states; Z79.899 Other long term (current) drug therapy; Z88.8 Allergy status to other drugs, medicaments and biological substances
CPT/HCPCS: 36415; 71046; 80048; 84484; 85025; 93005

== ENCOUNTER 2020-11-17 02:09 | Emergency (ER) | payer MEDICAID ==
[2020-11-17 04:52] VITALS: BP 154/85
== END 2020-11-17 07:05 | disposition left against medical advice (07) ==
LOC: ED 02:09
DX: M54.9 Dorsalgia, unspecified (principal); Z53.21 Procedure and treatment not carried out due to patient leaving prior to being seen by health care provider

== ENCOUNTER 2020-12-20 00:56 | Emergency (ER) | payer MEDICAID ==
[2020-12-20 02:39] VITALS: BP 125/74
--- NOTE | 2020-12-20 03:14 | XRay Report ---
CHEST 2 VIEWS INDICATION: Chest Pain. COMPARISON: 10/26/2020 FINDINGS: Support devices: None. Heart: Within normal limits. Lungs/Pleura: No acute air space or interstitial disease. No significant pleural effusion. IMPRESSION: No acute findings. Signer Name: Ketan Hale MD Signed: 12/20/2020 3:09 AM Workstation Name: [id number]
[2020-12-20 04:09] LABS: Basophils # (Auto) 0.1 K/mm3 (0.0-0.1); Basophils % (Auto) 2.1 % (0.0-1.8); Eosinophils # (Auto) 0.1 K/mm3 (0.0-0.4); Eosinophils % (Auto) 2.5 % (0.0-4.3); Hematocrit 31.9 % (35.5-45.6); Hemoglobin 9.8 gm/dl (11.8-15.2); Lymphocytes % (Auto) 27.1 % (13.4-35.0); Mean Corpuscular HGB Conc 31 % (32-34); Mean Corpuscular Volume 75 fl (84-94); Monocytes # (Auto) 0.4 K/mm3 (0.0-0.8); Monocytes % (Auto) 10.1 % (0.0-7.3); Platelet Count 204 K/mm3 (140-440); Red Blood Count 4.25 M/mm3 (3.65-5.03); Red Cell Distribution Width 18.4 % (13.2-15.2)
[2020-12-20 04:20] LABS: BUN/Creatinine Ratio 10; Blood Urea Nitrogen 13 mg/dL (9-20); Calcium 9.3 mg/dL (8.4-10.2); Hemolysis Index 46
[2020-12-20 04:23] LABS: Alanine Aminotransferase 18 units/L (7-56); Albumin 4.1 g/dL (3.9-5)
[2020-12-20 04:39] LABS: Bilirubin,Direct < 0.2 mg/dL (0-0.2)
--- NOTE | 2020-12-20 08:54 | Emergency Department Report ---
ED Chest Pain HPI - General Chief Complaint: Chest Pain Stated Complaint: CHEST PAIN Time Seen by Provider: 12/20/20 08:46 Source: patient Mode of arrival: Ambulatory Limitations: No Limitations - History of Present Illness Initial Comments: 40-year-old male with a past medical history of hypertension, diabetes, CVA, A. fib and obesity presents to the ER today with complaints of left-sided chest pain. Patient is well-known to this ER and he has had multiple ER visit for chest pain in the past. Patient states that this time his chest pain started ye sterday around 8 PM and intermittent in nature. He states that its sharp, stabbing and radiates into his left arm. He is unable to state what makes it better. He states that the pain seems to be worse when he takes a deep breath. He reports no shortness of breath, cough, wheezing, nausea or vomiting or diaphoresis. Patient states that he last saw his team primary care physician about 3 to 4 weeks ago and he states that "they wanted to run some test on me "but he states that told him they will let him know when. Patient states that he has been compliant with all his medications. According to patient's last cardiology consult which is when he was admitted here back in August 2020, "in 2016, he underwent a cardiac catheterization at [facility] that documents angiographically normal coronary arteries. Home medication list Plavix 75 daily as a substitute for his aspirin allergy and primary prevention of cardiovascular disease. He has had multiple thallium stress test that have all been negative. Serial echocardiograms have documented normal left ventricular systolic function." Patient claimed that he did have a heart attack and a stroke in 2019. He states that at the time he was hospitalized at [facility]. -: Gradual, Last night - Related Data Home Medications Medication Instructions Recorded Confirmed Last Taken Nitroglycerin [Nitrostat] 0.4 mg SL Q5M PRN 08/24/17 02/12/20 Unknown Previous Rx's Medication Instructions Recorded Last Taken Type Nicotine [Habitrol] 21 mg TD DAILY #30 patch 06/18/18 Unknown Rx Albuterol Mdi (or & Nicu Only) 2 puff IH QID PRN #8.5 gram 04/28/20 Unknown Rx [ProAir HFA Inhaler] Docusate Sodium [Colace CAP] 100 mg PO BID #14 capsule 04/28/20 Unknown Rx Ferrous Gluconate [Ferrous 324 mg PO TID #20 tablet 04/28/20 Unknown Rx Gluconate 324 MG] Clopidogrel [Plavix] 75 mg PO QDAY #30 tablet 07/01/20 Unknown Rx carvediloL [Coreg] 3.125 mg PO BID #60 tablet 07/01/20 Unknown Rx Azithromycin [Zithromax Z-JOANA] 0 mg PO DAILY #6 tab 09/12/20 Unknown Rx Lansoprazole [Prevacid] 30 mg PO DAILY #30 capsule. 10/02/20 Unknown Rx Cyclobenzaprine HCl [Flexeril 5 MG 5 mg PO TID PRN #21 tab 10/26/20 Unknown Rx TAB] Meloxicam, Submicronized 10 mg PO QDAY #10 capsule 12/20/20 Unknown Rx [Meloxicam] traMADoL [Ultram 50 MG tab] 50 mg PO BID #20 tablet 12/20/20 Unknown Rx Allergies Allergy/AdvReac Type Severity Reaction Status Date / Time acetaminophen [From Tylenol] Allergy Itching Verified 11/09/18 02:15 aspirin Allergy Hives Verified 11/09/18 02:15 Heart Score - HEART Score History: Slightly suspicious EKG: Non-specific Age: < 45 Risk factors: > 3 risk factors or hx of atherosclerotic disease Troponin: < normal limit HEART Score: 3 - EKG Read Time Time EKG Completed: 02:47 EKG Read Time: 02:51 - Critical Actions Critical Actions: 0-3 pts:0.9-1.7%risk of adverse cardiac event.Candidate for discharge ED Review of Systems ROS: Stated complaint: CHEST PAIN Other details as noted in HPI Comment: All other systems reviewed and negative Constitutional: denies: chills, fever ED Past Medical Hx - Past Medical History Hx Hypertension: Yes Hx CVA: Yes (TIAs, residiu. right side weakness) Hx Heart Attack/AMI: Yes Hx Congestive Heart Failure: Yes Hx Diabetes: Yes Hx Deep Vein Thrombosis: Yes (R-leg) Hx Pulmonary Embolism: Yes Hx Headaches / Migraines: No Hx Seizures: No Hx Asthma: Yes Hx COPD: Yes (bronchitis) Hx Dementia: No Additional medical history: Ulcers, a-fib. strong family hx of cardiac diso rders - Surgical History Hx Coronary Stent: Yes (2 in 2019) Additional Surgical History: Stent placement - Social History Smoking Status: Unknown if ever smoked Substance Use Type: None - Medications Home Medications: Home Medications Medication Instructions Recorded Confirmed Last Taken Type Nitroglycerin [Nitrostat] 0.4 mg SL Q5M PRN 08/24/17 02/12/20 Unknown History Nicotine [Habitrol] 21 mg TD DAILY #30 patch 06/18/18 02/12/20 Unknown Rx Albuterol Mdi (or & Nicu Only) 2 puff IH QID PRN #8.5 gram 04/28/20 Unknown Rx [ProAir HFA Inhaler] Docusate Sodium [Colace CAP] 100 mg PO BID #14 capsule 04/28/20 Unknown Rx Ferrous Gluconate [Ferrous 324 mg PO TID #20 tablet 04/28/20 Unknown Rx Gluconate 324 MG] Clopidogrel [Plavix] 75 mg PO QDAY #30 tablet 07/01/20 Unknown Rx carvediloL [Coreg] 3.125 mg PO BID #60 tablet 07/01/20 Unknown Rx Azithromycin [Zithromax Z-JOANA] 0 mg PO DAILY #6 tab 09/12/20 Unknown Rx Lansoprazole [Prevacid] 30 mg PO DAILY #30 capsule. 10/02/20 Unknown Rx Cyclobenzaprine HCl [Flexeril 5 MG 5 mg PO TID PRN #21 tab 10/26/20 Unknown Rx TAB] Meloxicam, Submicronized 10 mg PO QDAY #10 capsule 12/20/20 Unknown Rx [Meloxicam] traMADoL [Ultram 50 MG tab] 50 mg PO BID #20 tablet 12/20/20 Unknown Rx ED Physical Exam - General Limitations: No Limitations ED Course Vital Signs 12/20/20 02:36 Temperature 99.1 F Pulse Rate 90 Respiratory 20 Rate Blood Pressure 125/74 O2 Sat by Pulse 96 Oximetry CRISPIN score - Crispin Score Age > 65: (0) No Aspirin use within the Past 7 Days: (0) No 3 or more CAD Risk Factors: (1) Yes 2 or more Angina events in past 24 hrs: (0) No Known CAD with more than 50% Stenosis: (0) No Elevated Cardiac Markers: (0) No ST Deviation Greater than 0.5mm: (0) No CRISPIN Score: 1 ED Medical Decision Making - Lab Data Result diagrams: 12/20/20 03:39 12/20/20 03:39 - EKG Data EKG shows normal: sinus rhythm Rate: normal (92) No standard instances T wave inversions noted in: II, III, aVF, v3, v4, v5, v6 - EKG Data When compared to previous EKG there are: changes noted (new fliped T waves in inferior and anterior leads when compared to October 26 EKG ) - Radiology Data Radiology results: report reviewed Patient: DYAN SHEFFIELD JR MR#: [id number] : 1980 Acct:[id number] Age/Sex: 40 / M ADM Date: 12/20/20 Loc: ED Attending Dr: Ordering Physician: YARELY KLEIN MD Date of Service: 12/20/20 Procedure(s): XR chest routine 2V Accession Number(s): [id number] cc: ED MD ERNIE Fluoro Time In Minutes: CHEST 2 VIEWS INDICATION: Chest Pain. COMPARISON: 10/26/2020 FINDINGS: Support devices: None. Heart: Within normal limits. Lungs/Pleura: No acute air space or interstitial disease. No significant pleural effusion. IMPRESSION: No acute findings. Signer Name: Ketan Hale MD Signed: 12/20/2020 3:09 AM Workstation Name: [id number] Transcribed By: ES Dictated By: Ketan Hale MD Electronically Authenticated By: Ketan Hale MD Signed Date/Time: 12/20/20308 DD/ 8 TD/TT: - Medical Decision Making 1409: labs reviewed -- CBC and CMP unremarkable. Trop x2 negative. CXR shows nothing acute. CTA negative for PE but show changes consistent with esophagitis and possible pneumonitis versus atelectasis. Call to get records from patient's admission at [facility] since he mentioned that he did have a heart attack and a stroke, and a heart cath done and had a stent placed and this was done in 2019.. But the only record they were able to find with an admission dated May 23, 2019 with patient presented with atypical chest pain and was diagnosed with pneumonia. He had 2 - troponins and was discharged home. There was no documentation about him having a stroke or a heart attack or needing a heart cath. Discussed case as well as all lab results, imaging results and EKG results with Dr. Alim, and it does appear that patient has inverted T waves in the inferior and anterior leads which is new compared to his EKG in October 26 and given that, recommend admitting patient to hospital. 1418: Case Discussed with Dr Maloney, He states he will come see the patient in ER and he will determine dispo. 1736: Dr Maloney evaluated patient and does not feel patient needs to be admit. He stated he will discharge patient. Critical care attestation.: If time is entered above; I have spent that time in minutes in the direct care of this critically ill patient, excluding procedure time. ED Disposition Clinical Impression: Chest pain, Esophagitis Disposition: HOME / SELF CARE / HOMELESS Is pt being admited?: No Condition: Stable Instructions: Esophagitis, Nonspecific Chest Pain, Adult Prescriptions: Meloxicam, Submicronized [Meloxicam] 10 mg PO QDAY #10 capsule traMADoL [Ultram 50 MG tab] 50 mg PO BID #20 tablet Referrals: RIGO CARTER MD [Primary Care Provider] - 3-5 Days
--- NOTE | 2020-12-20 09:40 | Electrocardiograph Report ---
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
[2020-12-20] MEDS ORDERED: HYDROcodone/ACETAMINOPHEN 5-325 MG TAB PO ONE (10:22)
--- NOTE | 2020-12-20 13:47 | Cat Scan Report ---
CTA CHEST WITH IV CONTRAST INDICATION: Acute onset chest pain with dyspnea. TECHNIQUE: Axial CT images were obtained through the chest after injection of 100 mL IV contrast. 3 plane MIP re constructions were produced. All CT scans at this location are performed using CT dose reduction for ALARA by means of automated exposure control. COMPARISON: None available. FINDINGS: PULMONARY ARTERIES: No pulmonary emboli. AORTA AND ARTERIES: No acute abnormality. MEDIASTINUM: No mass, lymphadenopathy or other significant abnormality. The heart is normal in size w ithout a pericardial effusion. The trachea and main bronchi are patent and normal in caliber. LUNGS: Faint ill-defined groundglass densities mostly peripherally and along the basilar portions of both lungs. ADDITIONAL FINDINGS: Nonspecific mucosal thickening involving the distal thoracic esophag us.. UPPER ABDOMEN: No acute findings. BONES: No significant osseous abnormality. IMPRESSION: 1. No CT evidence for pulmonary embolism. 2. Increased mucosal thickening involving much of the mid and distal thoracic esophagus is nonspecifi c but could be seen with esophagitis. 3. Scattered groundglass densities primarily involving the lung bases may represent early low-grade p neumonitis versus subsegmental atelectasis. Signer Name: Silvano Jones MD Signed: 12/20/2020 1:42 PM Workstation Name: [email or web address]
[2020-12-20] MEDS ORDERED: MORPHINE 2 MG/1 ML INJ IV ONE (17:24)
[2020-12-20] MEDS ORDERED: ONDANSETRON 4 MG/2 ML INJ IV ONE (17:24)
--- NOTE | 2020-12-20 18:17 | Event Note ---
Date: 12/20/20 40-year-old male has multiple emergency room visits for left-sided chest pain. Extensive work-up was done. Patient had a cardiac cath which is with normal coronary arteries from [place] in . Stress test was done here in which was also normal. Patient has left-sided chest wall tenderness. Impression Costochondritis Plan meloxicam 15 mg daily for 10 days tramadol fifty twice daily for 10 days Follow-up with primary care/cardiology-[facility] hospital in1 week's time
== END 2020-12-20 19:06 | disposition home or self-care (01) ==
LOC: ED 00:56
DX: R07.9 Chest pain, unspecified (principal); K20.90 Esophagitis, unspecified without bleeding; Z86.79 Personal history of other diseases of the circulatory system; I25.2 Old myocardial infarction; E11.8 Type 2 diabetes mellitus with unspecified complications; I11.0 Hypertensive heart disease with heart failure
CPT/HCPCS: 36415; 71046; 71275; 80048; 80076; 84484; 85025; 85379; 93005; 96374; 96375; 99284; J2270; J2405; Q9967

== ENCOUNTER 2021-08-06 01:13 | Emergency (ER) | payer MEDICAID ==
[2021-08-06 01:33] VITALS: BP 134/83
--- NOTE | 2021-08-08 14:07 | Electrocardiograph Report ---
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
== END 2021-08-06 08:52 | disposition left against medical advice (07) ==
LOC: ED 01:13
DX: R07.9 Chest pain, unspecified (principal); Z53.21 Procedure and treatment not carried out due to patient leaving prior to being seen by health care provider
CPT/HCPCS: 93005

== ENCOUNTER 2021-08-26 00:16 | Emergency (ER) | payer MEDICAID ==
[2021-08-26 00:22] VITALS: BP 145/72
--- NOTE | 2021-08-26 01:22 | XRay Report ---
CHEST 2 VIEWS INDICATION / CLINICAL INFORMATION: CHEST PAIN. COMPARISON: Chest x-ray 12/20/2020 FINDINGS: SUPPORT DEVICES: None. HEART / MEDIASTINUM: No significant abnormality. LUNGS / PLEURA: No significant pulmonary or pleural abnormality. No pneumothorax. BONES: No significant osseous abnormality. ADDITIONAL FINDINGS: No significant additional findings. IMPRESSION: 1. No active cardiopulmonary disease. Signer Name: Con Cox II, MD Signed: 08/26/2021 1:17 AM Workstation Name: [id number]
[2021-08-26 01:28] LABS: Eosinophils # (Auto) 0.1 K/mm3 (0.0-0.4); Eosinophils % (Auto) 1.4 % (0.0-4.3); Hematocrit 30.5 % (35.5-45.6); Hemoglobin 9.3 gm/dl (11.8-15.2); Lymphocytes # (Auto) 0.9 K/mm3 (1.2-5.4); Lymphocytes % (Auto) 25.1 % (13.4-35.0); Mean Corpuscular HGB Conc 31 % (32-34); Mean Corpuscular Volume 72 fl (84-94); Monocytes # (Auto) 0.5 K/mm3 (0.0-0.8); Monocytes % (Auto) 13.3 % (0.0-7.3); Platelet Count 224 K/mm3 (140-440); Red Blood Count 4.25 M/mm3 (3.65-5.03); Red Cell Distribution Width 19.1 % (13.2-15.2)
[2021-08-26 01:56] LABS: Alanine Aminotransferase 22 units/L (7-56); Albumin 4.6 g/dL (3.9-5); BUN/Creatinine Ratio 13; Blood Urea Nitrogen 16 mg/dL (9-20); Calcium 9.5 mg/dL (8.4-10.2); Hemolysis Index 6
--- NOTE | 2021-08-26 10:15 | Electrocardiograph Report ---
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
== END 2021-08-26 00:45 | disposition left against medical advice (07) ==
LOC: ED 00:16
DX: R07.89 Other chest pain (principal); Z53.21 Procedure and treatment not carried out due to patient leaving prior to being seen by health care provider
CPT/HCPCS: 36415; 71046; 80053; 84484; 85025; 93005

== ENCOUNTER 2021-09-18 01:21 | Emergency (ER) | payer MEDICAID ==
[2021-09-18 01:38] VITALS: BP 129/66
== END 2021-09-18 17:40 | disposition left against medical advice (07) ==
LOC: ED 01:21
DX: M54.9 Dorsalgia, unspecified (principal); Z53.21 Procedure and treatment not carried out due to patient leaving prior to being seen by health care provider

== ENCOUNTER 2021-09-26 00:55 | Emergency (ER) | payer MEDICAID ==
[2021-09-26 03:25] LABS: Basophils % (Auto) 1.2 % (0.0-1.8); Eosinophils # (Auto) 0.1 K/mm3 (0.0-0.4); Eosinophils % (Auto) 3.1 % (0.0-4.3); Hematocrit 28.8 % (35.5-45.6); Hemoglobin 8.8 gm/dl (11.8-15.2); Lymphocytes % (Auto) 28.1 % (13.4-35.0); Mean Corpuscular HGB Conc 31 % (32-34); Mean Corpuscular Volume 73 fl (84-94); Monocytes # (Auto) 0.3 K/mm3 (0.0-0.8); Monocytes % (Auto) 8.8 % (0.0-7.3); Platelet Count 223 K/mm3 (140-440); Red Blood Count 3.92 M/mm3 (3.65-5.03); Red Cell Distribution Width 19.5 % (13.2-15.2)
--- NOTE | 2021-09-26 03:25 | XRay Report ---
CHEST 2 VIEWS INDICATION / CLINICAL INFORMATION: CHEST PAIN. COMPARISON: 09/02/2021 FINDINGS: SUPPORT DEVICES: None. HEART / MEDIASTINUM: No significant abnormality. LUNGS / PLEURA: No significant pulmonary or pleural abnormality. No pneumothorax. ADDITIONAL FINDINGS: No significant additional findings. IMPRESSION: 1. No acute findings. Signer Name: Rk Meza MD Signed: 09/26/2021 3:20 AM Workstation Name: [id number]
[2021-09-26 03:30] LABS: Alanine Aminotransferase 19 units/L (7-56); BUN/Creatinine Ratio 9; Blood Urea Nitrogen 11 mg/dL (9-20); Hemolysis Index 4
[2021-09-26] MEDS ORDERED: fentaNYL 100 MCG/2 ML INJ IV ONE (03:38)
[2021-09-26] MEDS ORDERED: ONDANSETRON 4 MG/2 ML INJ IV ONE (03:38)
--- NOTE | 2021-09-26 03:43 | Emergency Department Report ---
HPI - General Chief Complaint: Chest Pain Time Seen by Provider: 09/26/21 03:27 - HPI HPI: Room 5 The patient is a 40-year-old male present with chief complaint of chest pain. Patient states he developed left-sided chest pain this evening at 2100. Patient describes the pain as sharp and pushing in nature. Patient admits that shortness of breath but denies nausea/vomiting with this pain. Patient denies history of cough. Patient was admitted to this hospital last month for the same and had a negative stress test performed. Patient reportedly had normal coronary arteries seen on a cardiac cath performed at [facility] in 2017 ED Past Medical Hx - Past Medical History Hx Hypertension: Yes Hx CVA: Yes (TIAs, residiu. right side weakness) Hx Heart Attack/AMI: Yes Hx Congestive Heart Failure: Yes Hx Diabetes: Yes (?) Hx Deep Vein Thrombosis: Yes (R-leg) Hx Pulmonary Embolism: Yes Hx Asthma: Yes Hx COPD: Yes (bronchitis) Additional medical history: Ulcers, a-fib. strong family hx of cardiac disorders - Surgical History Additional Surgical History: Back surgery - Family History Family history: no significant - Social History Smoking Status: Former Smoker (None x1 year) Substance Use Type: None (Denies illicit drug use) - Medications Home Medications: Home Medications Medication Instructions Recorded Confirmed Last Taken Type Ferrous Gluconate [Ferrous 324 mg PO TID #20 tablet 04/28/20 09/02/21 Unknown Rx Gluconate 324 MG] AtorvaSTATin [Lipitor] 40 mg PO QHS #30 tablet 09/04/21 Unknown Rx Clopidogrel [Plavix] 75 mg PO QDAY #30 tablet 09/04/21 Unknown Rx Gabapentin 300 mg PO BID #60 capsule 09/04/21 Unknown Rx Nitroglycerin [Nitrostat] 0.4 mg SL Q5M PRN #30 tablet 09/04/21 Unknown Rx carvediloL [Coreg] 3.125 mg PO BID #60 tablet 09/04/21 Unknown Rx traMADoL [Ultram] 50 mg PO Q6HR PRN #10 tablet 09/26/21 Unknown Rx ED Review of Systems ROS: Stated complaint: CHEST PAIN Other details as noted in HPI Constitutional: no symptoms reported Eyes: denies: eye pain ENT: denies: throat pain Respiratory: shortness of breath. denies: cough Cardiovascular: chest pain Endocrine: no symptoms reported Gastrointestinal: denies: nausea, vomiting Genitourinary: denies: dysuria Musculoskeletal: denies: back pain Neurological: denies: headache Physical Exam - Physical Exam Vital Signs: Vital Signs 09/26/21 01:10 Temperature 99.5 F Pulse Rate 103 H Respiratory 18 Rate Blood Pressure 130/76 O2 Sat by Pulse 98 Oximetry Physical Exam: GENERAL: The patient is well-developed well-nourished male lying on stretcher not appearing to be in acute distress. [] HEENT: Normocephalic. Atraumatic. Extraocular motions are intact. Patient has moist mucous membranes. NECK: Supple. No meningitic signs are noted. Trachea midline CHEST/LUNGS: Clear to auscultation. There is no respiratory distress noted. HEART/CARDIOVASCULAR: Regular. There is no tachycardia. There is no gallop rub or murmur. ABDOMEN: Abdomen is soft, nontender. Patient has normal bowel sounds. There is no abdominal distention. SKIN: There is no rash. There is no edema. There is no diaphoresis. NEURO: The patient is awake, alert, and oriented. The patient is cooperative. Cranial nerves II through XII grossly intact. The patient has normal speech. GCS 15 MUSCULOSKELETAL:There is no evidence of acute injury. ED Course Vital Signs 09/26/21 01:10 Temperature 99.5 F Pulse Rate 103 H Respiratory 18 Rate Blood Pressure 130/76 O2 Sat by Pulse 98 Oximetry ED Medical Decision Making - Lab Data Result diagrams: 09/26/21 02:51 09/26/21 02:51 - EKG Data -: EKG Interpreted by Me EKG shows normal: sinus rhythm Rate: normal - EKG Data When compared to previous EKG there are: no significant change Interpretation: unchanged when compared t (09/02/2021) - Radiology Data Radiology results: report reviewed (Chest x-ray), image reviewed (Chest x-ray) interpreted by me: Chest x-ray-no definite focal infiltrates, no pneumothorax [facility] [address] [place] [address] XRay Report Signed Patient: DYAN SHEFFIELD JR MR#: [id number] : 1980 Acct:[id number] Age/Sex: 40 / M ADM Date: 09/26/21 Loc: ED Attending Dr: Ordering Physician: ED DOCMD Date of Service: 09/26/21 Procedure(s): XR chest routine 2V Accession Number(s): [id number] cc: ED DOC, Fluoro Time In Minutes: CHEST 2 VIEWS INDICATION / CLINICAL INFORMATION: CHEST PAIN. COMPARISON: 09/02/2021 FINDINGS: SUPPORT DEVICES: None. HEART / MEDIASTINUM: No significant abnormality. LUNGS / PLEURA: No significant pulmonary or pleural abnormality. No pneumothorax. ADDITIONAL FINDINGS: No significant additional findings. IMPRESSION: 1. No acute findings. Signer Name: Rk Meza MD Signed: 09/26/2021 3:20 AM Workstation Name: [id number] Transcribed By: TL Dictated By: Rk Meza MD Electronically Authenticated By: Rk Meza MD Signed Date/Time: 09/26/21319 DD/ 9 TD/TT: - Differential Diagnosis Atypical chest pain, costochondritis, PE, ACS, GERD Critical care attestation.: If time is entered above; I have spent that time in minutes in the direct care of this critically ill patient, excluding procedure time. ED Disposition Clinical Impression: Atypical chest pain Disposition: 01 HOME / SELF CARE / HOMELESS Is pt being admited?: No Does the pt Need Aspirin: No Condition: Stable Instructions: Nonspecific Chest Pain, Adult Additional Instructions: Return to the emergency department should you develop worsening symptoms, inability to tolerate food or liquids, high fever or any other concerns Prescriptions: traMADoL [Ultram] 50 mg PO Q6HR PRN #10 tablet PRN Reason: Pain Referrals: WILDA DIAZ MD [Primary Care Provider] - 3-5 Days
[2021-09-26 04:18] VITALS: BP 157/78
--- NOTE | 2021-09-26 06:24 | Cat Scan Report ---
CTA CHEST WITH CONTRAST INDICATION / CLINICAL INFORMATION: Chest pain. TECHNIQUE: Axial CT images were obtained through the chest after injection of 100 cc IV contrast. 3 p jeaneth MIP and/or 3D reconstructions were produced. All CT scans at this location are performed using C T dose reduction for ALARA by means of automated exposure control. COMPARISON: CTA chest 12/20/2020 FINDINGS: PULMONARY EMBOLUS: None. THORACIC AORTA: No significant abnormality. HEART: No significant abnormality. CORONARY ARTERY CALCIFICATION: Absent -- None. MEDIASTINUM / YUN: No significant abnormality. PLEURA: No pleural effusion. No pneumothorax. LUNGS: No acute air space or interstitial disease. ADDITIONAL FINDINGS: None. UPPER ABDOMEN: No acute findings. SKELETAL STRUCTURES: No significant osseous abnormality. IMPRESSION: 1. No CT evidence for pulmonary embolism. 2. No acute findings. Signer Name: Rk Meza MD Signed: 09/26/2021 6:19 AM Workstation Name: [id number]
--- NOTE | 2021-09-27 12:20 | Electrocardiograph Report ---
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
== END 2021-09-26 06:45 | disposition home or self-care (01) ==
LOC: ED 00:55
DX: R07.89 Other chest pain (principal); I11.0 Hypertensive heart disease with heart failure; I50.9 Heart failure, unspecified; E11.9 Type 2 diabetes mellitus without complications; I82.409 Acute embolism and thrombosis of unspecified deep veins of unspecified lower extremity; I26.99 Other pulmonary embolism without acute cor pulmonale; J44.9 Chronic obstructive pulmonary disease, unspecified; I48.91 Unspecified atrial fibrillation; Z98.890 Other specified postprocedural states; Z87.891 Personal history of nicotine dependence
CPT/HCPCS: 36415; 71046; 71275; 80053; 84484; 85025; 85379; 93005; 96374; 96375; 99284; J2405; J3010; Q9967

== ENCOUNTER 2021-10-04 01:33 | Emergency (ER) | payer MEDICAID ==
--- NOTE | 2021-10-04 09:35 | XRay Report ---
CHEST PA AND LATERAL VIEWS INDICATION: Chest Pain. COMPARISON: 8 days prior FINDINGS: Support devices: None. Heart: Within normal limits. Lungs/Pleura: No acute pulmonary or pleural findings. IMPRESSION: 1. No acute findings. Signer Name: Melvin Bowman MD Signed: 10/04/2021 9:31 AM Workstation Name: [id number]
[2021-10-04 10:36] LABS: Basophils % (Auto) 1.2 % (0.0-1.8); Eosinophils # (Auto) 0.1 K/mm3 (0.0-0.4); Eosinophils % (Auto) 3.5 % (0.0-4.3); Hematocrit 32.5 % (35.5-45.6); Hemoglobin 10.1 gm/dl (11.8-15.2); Mean Corpuscular HGB Conc 31 % (32-34); Mean Corpuscular Volume 73 fl (84-94); Monocytes # (Auto) 0.5 K/mm3 (0.0-0.8); Monocytes % (Auto) 12.7 % (0.0-7.3); Platelet Count 253 K/mm3 (140-440); Red Blood Count 4.48 M/mm3 (3.65-5.03); Red Cell Distribution Width 19.3 % (13.2-15.2)
[2021-10-04 10:46] LABS: INR 0.76 (0.87-1.13)
[2021-10-04 11:03] LABS: Alanine Aminotransferase 22 units/L (7-56); Albumin 4.6 g/dL (3.9-5); BUN/Creatinine Ratio 14; Blood Urea Nitrogen 15 mg/dL (9-20); Calcium 9.2 mg/dL (8.4-10.2); Hemolysis Index 3
[2021-10-04 11:04] LABS: Partial Thromboplastin Time TNR Sec. (24.2-36.6)
--- NOTE | 2021-10-05 09:55 | Electrocardiograph Report ---
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
== END 2021-10-04 23:24 | disposition left against medical advice (07) ==
LOC: ED 01:33
DX: R07.9 Chest pain, unspecified (principal); Z53.21 Procedure and treatment not carried out due to patient leaving prior to being seen by health care provider
CPT/HCPCS: 36415; 71046; 80053; 84484; 85025; 85610; 85730; 93005

== ENCOUNTER 2021-10-05 00:59 | Emergency (ER) | payer MEDICAID ==
[2021-10-05 01:06] VITALS: BP 147/85
[2021-10-05] MEDS ORDERED: ASPIRIN 325 MG TAB PO ONE (01:07)
[2021-10-05 02:07] LABS: Basophils % (Auto) 0.6 % (0.0-1.8); Eosinophils # (Auto) 0.1 K/mm3 (0.0-0.4); Eosinophils % (Auto) 2.2 % (0.0-4.3); Hematocrit 30.2 % (35.5-45.6); Hemoglobin 9.3 gm/dl (11.8-15.2); Lymphocytes # (Auto) 0.7 K/mm3 (1.2-5.4); Lymphocytes % (Auto) 16.8 % (13.4-35.0); Mean Corpuscular HGB Conc 31 % (32-34); Mean Corpuscular Volume 72 fl (84-94); Monocytes # (Auto) 0.5 K/mm3 (0.0-0.8); Monocytes % (Auto) 11.5 % (0.0-7.3); Platelet Count 246 K/mm3 (140-440); Red Blood Count 4.17 M/mm3 (3.65-5.03); Red Cell Distribution Width 19.2 % (13.2-15.2)
[2021-10-05 02:13] LABS: Alanine Aminotransferase 21 units/L (7-56); Albumin 4.4 g/dL (3.9-5); BUN/Creatinine Ratio 13; Blood Urea Nitrogen 17 mg/dL (9-20); Calcium 9.5 mg/dL (8.4-10.2); Hemolysis Index 5
--- NOTE | 2021-10-05 02:37 | XRay Report ---
CHEST 2 VIEWS INDICATION / CLINICAL INFORMATION: chest pain. COMPARISON: Chest x-ray 10/04/2021 FINDINGS: SUPPORT DEVICES: None. HEART / MEDIASTINUM: No significant abnormality. LUNGS / PLEURA: No significant pulmonary or pleural abnormality. No pneumothorax. BONES: No significant osseous abnormality. ADDITIONAL FINDINGS: No significant additional findings. IMPRESSION: 1. No active cardiopulmonary disease. Signer Name: Con Cox II, MD Signed: 10/05/2021 2:32 AM Workstation Name: [id number]
--- NOTE | 2021-10-05 09:07 | Electrocardiograph Report ---
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
== END 2021-10-05 11:08 | disposition left against medical advice (07) ==
LOC: ED 00:59
DX: R07.9 Chest pain, unspecified (principal); Z53.21 Procedure and treatment not carried out due to patient leaving prior to being seen by health care provider
CPT/HCPCS: 36415; 71046; 80053; 84484; 85025; 93005; J3490

== ENCOUNTER 2021-10-07 01:18 | Emergency (ER) | payer MEDICAID ==
[2021-10-07 02:11] LABS: Basophils # (Auto) 0.1 K/mm3 (0.0-0.1); Basophils % (Auto) 1.5 % (0.0-1.8); Eosinophils # (Auto) 0.1 K/mm3 (0.0-0.4); Eosinophils % (Auto) 2.5 % (0.0-4.3); Hematocrit 29.3 % (35.5-45.6); Hemoglobin 9.1 gm/dl (11.8-15.2); Lymphocytes # (Auto) 0.8 K/mm3 (1.2-5.4); Lymphocytes % (Auto) 21.9 % (13.4-35.0); Mean Corpuscular HGB Conc 31 % (32-34); Mean Corpuscular Volume 72 fl (84-94); Monocytes # (Auto) 0.5 K/mm3 (0.0-0.8); Monocytes % (Auto) 12.3 % (0.0-7.3); Platelet Count 233 K/mm3 (140-440); Red Blood Count 4.05 M/mm3 (3.65-5.03); Red Cell Distribution Width 19.3 % (13.2-15.2)
[2021-10-07 02:29] LABS: Alanine Aminotransferase 27 units/L (7-56); Albumin 4.3 g/dL (3.9-5); BUN/Creatinine Ratio 11; Blood Urea Nitrogen 13 mg/dL (9-20); Calcium 9.5 mg/dL (8.4-10.2); Hemolysis Index 3
--- NOTE | 2021-10-07 03:10 | XRay Report ---
CHEST 2 VIEWS INDICATION / CLINICAL INFORMATION: CHEST PAIN. COMPARISON: Chest x-ray 10/05/2021 FINDINGS: SUPPORT DEVICES: None. HEART / MEDIASTINUM: Heart size and mediastinal contour appear within normal limits. LUNGS / PLEURA: No significant pulmonary or pleural abnormality. No pneumothorax. BONES: No significant osseous abnormality. ADDITIONAL FINDINGS: No significant additional findings. IMPRESSION: 1. No active cardiopulmonary disease. Signer Name: Con Cox II, MD Signed: 10/07/2021 3:05 AM Workstation Name: [id number]
--- NOTE | 2021-10-07 11:28 | Electrocardiograph Report ---
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
--- NOTE | 2021-10-07 13:37 | Emergency Department Report ---
ED General Adult HPI - General Chief complaint: Chest Pain Stated complaint: CHEST PAIN Time Seen by Provider: 10/07/21 11:01 Source: patient, family Mode of arrival: Ambulatory Limitations: No Limitations - History of Present Illness Initial comments: Mrs. Haque is a 40-year-old F [place] male with a past medical history hypertension suspected diabetes who has been seen and evaluated emergency department multiple times in the last month for chest pain exacerbations. Story is somewhat consistent with his previous visit having left-sided chest pain that started last night spontaneously was sharp and dull with some pressure-like nature radiating through to her shoulders jaw and sometimes across the side of his chest associated with some shortness of breath but reports no nausea or vomiting. Reports no cough, fever, chills, sweats, hemoptysis, hematemesis hematochezia,. Reports no back pain or abdomen at abdominal pain. Reportedly had a cardiac catheterization with [facility] in 2017 that was normal with a EF of 65% he has had multiple work-ups at our facility with negative cardiac enzymes. -: Gradual Radiation: non-radiation Quality: dull Consistency: constant Worsens with: none Associated Symptoms: chest pain. denies: confusion, diaphoresis, fever/chills, headaches, loss of appetite, malaise, nausea/vomiting, rash, seizure, shortness of breath, syncope, weakness Treatments Prior to Arrival: none - Related Data Previous Rx's Medication Instructions Recorded Last Taken Type RX: Ferrous Gluconate [Ferrous 324 mg PO TID #20 tablet 04/28/20 Unknown Rx Gluconate 324 MG] RX: AtorvaSTATin [Lipitor] 40 mg PO QHS #30 tablet 09/04/21 Unknown Rx RX: Clopidogrel [Plavix] 75 mg PO QDAY #30 tablet 09/04/21 Unknown Rx RX: Gabapentin 300 mg PO BID #60 capsule 09/04/21 Unknown Rx RX: Nitroglycerin [Nitrostat] 0.4 mg SL Q5M PRN #30 tablet 09/04/21 Unknown Rx RX: carvediloL [Coreg] 3.125 mg PO BID #60 tablet 09/04/21 Unknown Rx traMADoL [Ultram] 50 mg PO Q6HR PRN #10 tablet 09/26/21 Unknown Rx methOCARBAMOL [Robaxin TAB] 750 mg PO Q8H PRN #14 10/07/21 Unknown Rx Allergies Allergy/AdvReac Type Severity Reaction Status Date / Time acetaminophen [From Tylenol] Allergy Itching Verified 10/05/21 01:06 aspirin Allergy Hives Verified 10/05/21 01:06 ED Review of Systems ROS: Stated complaint: CHEST PAIN Other details as noted in HPI Comment: All other systems reviewed and negative ED Past Medical Hx - Past Medical History Hx Hypertension: Yes Hx CVA: Yes (TIAs, residiu. right side weakness) Hx Heart Attack/AMI: Yes Hx Congestive Heart Failure: Yes Hx Diabetes: Yes (?) Hx Deep Vein Thrombosis: Yes (R-leg) Hx Pulmonary Embolism: Yes Hx Asthma: Yes Hx COPD: Yes (bronchitis) Additional medical history: Ulcers, a-fib. strong family hx of cardiac disorders - Surgical History Additional Surgical History: Back surgery - Social History Smoking Status: Never Smoker - Medications Home Medications: Home Medications Medication Instructions Recorded Confirmed Last Taken Type RX: Ferrous Gluconate [Ferrous 324 mg PO TID #20 tablet 04/28/20 09/02/21 Unknown Rx Gluconate 324 MG] RX: AtorvaSTATin [Lipitor] 40 mg PO QHS #30 tablet 09/04/21 Unknown Rx RX: Clopidogrel [Plavix] 75 mg PO QDAY #30 tablet 09/04/21 Unknown Rx RX: Gabapentin 300 mg PO BID #60 capsule 09/04/21 Unknown Rx RX: Nitroglycerin [Nitrostat] 0.4 mg SL Q5M PRN #30 tablet 09/04/21 Unknown Rx RX: carvediloL [Coreg] 3.125 mg PO BID #60 tablet 09/04/21 Unknown Rx traMADoL [Ultram] 50 mg PO Q6HR PRN #10 tablet 09/26/21 Unknown Rx methOCARBAMOL [Robaxin TAB] 750 mg PO Q8H PRN #14 10/07/21 Unknown Rx ED Physical Exam - General Limitations: No Limitations General appearance: alert, in no apparent distress - Head Head exam: Present: atraumatic, normocephalic - Eye Eye exam: Present: normal appearance, PERRL, EOMI. Absent: conjunctival injection, periorbital tenderness Pupils: Present: normal accommodation - ENT ENT exam: Present: normal exam, mucous membranes moist, TM's normal bilaterally - Neck Neck exam: Present: normal inspection, full ROM - Respiratory Respiratory exam: Present: normal lung sounds bilaterally. Absent: respiratory distress, wheezes, rales, rhonchi - Cardiovascular Cardiovascular Exam: Present: regular rate, normal rhythm. Absent: systolic murmur, diastolic murmur, rubs, gallop - GI/Abdominal GI/Abdominal exam: Present: soft, normal bowel sounds - Rectal Rectal exam: Present: deferred - Extremities Exam Extremities exam: Present: normal inspection, normal capillary refill - Back Exam Back exam: Present: normal inspection. Absent: CVA tenderness (R), CVA tenderness (L) - Neurological Exam Neurological exam: Present: alert, oriented X3, CN II-XII intact, normal gait - Psychiatric Psychiatric exam: Present: normal affect, normal mood - Skin Skin exam: Present: warm, dry, intact, normal color. Absent: rash ED Course Vital Signs 10/07/21 10/07/21 01:39 13:44 Temperature 98.4 F 97.9 F Pulse Rate 103 H 68 Respiratory 18 16 Rate Blood Pressure 132/83 Blood Pressure 107/62 [Left] O2 Sat by Pulse 97 100 Oximetry ED Medical Decision Making - Lab Data Result diagrams: 10/07/21 01:57 10/07/21 01:57 Critical care attestation.: If time is entered above; I have spent that time in minutes in the direct care of this critically ill patient, excluding procedure time. ED Disposition Clinical Impression: Chest pain, Chest pain in adult Disposition: 01 HOME / SELF CARE / HOMELESS Is pt being admited?: No Does the pt Need Aspirin: No Condition: Stable Instructions: Nonspecific Chest Pain, Adult Additional Instructions: You were evaluated emergency department today for chest pain. 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 Please schedule an appointment for follow-up with your primary care physician as soon as possible. Return to emergency department if you expands worsening uncontrolled chest pain, shortness of breath, lightheadedness, feeling faint, nausea, vomiting or any other concerning symptoms. Prescriptions: methOCARBAMOL [Robaxin TAB] 750 mg PO Q8H PRN #14 PRN Reason: musculoskeletal carolyn Referrals: ARTEMIO MEDINA MD [Staff Physician] - 3-5 Days
[2021-10-07 13:45] VITALS: BP 107/62
== END 2021-10-07 13:55 | disposition home or self-care (01) ==
LOC: ED 01:18
DX: R07.9 Chest pain, unspecified (principal); I11.0 Hypertensive heart disease with heart failure; I50.9 Heart failure, unspecified; E11.9 Type 2 diabetes mellitus without complications; I26.99 Other pulmonary embolism without acute cor pulmonale; Z86.718 Personal history of other venous thrombosis and embolism; J45.909 Unspecified asthma, uncomplicated; Z86.73 Personal history of transient ischemic attack (TIA), and cerebral infarction without residual deficits; Z91.09 Other allergy status, other than to drugs and biological substances; Z79.899 Other long term (current) drug therapy
CPT/HCPCS: 36415; 71046; 80053; 84484; 85025; 93005; 99283

== ENCOUNTER 2021-10-18 23:41 | Emergency (ER) | payer MEDICAID ==
[2021-10-19 00:37] VITALS: BP 142/87
--- NOTE | 2021-10-19 09:52 | Electrocardiograph Report ---
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
== END 2021-10-19 05:00 | disposition left against medical advice (07) ==
LOC: ED 23:41
DX: R07.9 Chest pain, unspecified (principal); Z53.21 Procedure and treatment not carried out due to patient leaving prior to being seen by health care provider
CPT/HCPCS: 93005

== ENCOUNTER 2021-10-22 02:00 | Emergency (ER) | payer MEDICAID ==
[2021-10-22 02:09] VITALS: BP 126/85
== END 2021-10-22 08:26 | disposition left against medical advice (07) ==
LOC: ED 02:00
DX: M54.9 Dorsalgia, unspecified (principal); Z53.21 Procedure and treatment not carried out due to patient leaving prior to being seen by health care provider

== ENCOUNTER 2021-11-11 00:19 | Emergency (ER) | payer MEDICAID ==
--- NOTE | 2021-11-11 06:49 | Emergency Department Report ---
ED General Adult HPI - General Chief complaint: Abdominal Pain Stated complaint: AB PAIN Time Seen by Provider: 11/11/21 06:43 Source: patient Mode of arrival: Ambulatory Limitations: No Limitations - History of Present Illness Initial comments: Is a 40-year-old male who presents for constipation. States last bowel movement 1 week ago however patient is tolerating p.o. intake there is no fevers there is no chills there is no nausea or vomiting. Patient is tolerating p.o. intake at this time. Patient denies other complaints denies other history. Last bowel movement was described as small hard rabbit pellet. - Related Data Previous Rx's Medication Instructions Recorded Last Taken Type Ferrous Gluconate [Ferrous 324 mg PO TID #20 tablet 04/28/20 Unknown Rx Gluconate 324 MG] AtorvaSTATin [Lipitor] 40 mg PO QHS #30 tablet 09/04/21 Unknown Rx Clopidogrel [Plavix] 75 mg PO QDAY #30 tablet 09/04/21 Unknown Rx Gabapentin 300 mg PO BID #60 capsule 09/04/21 Unknown Rx Nitroglycerin [Nitrostat] 0.4 mg SL Q5M PRN #30 tablet 09/04/21 Unknown Rx carvediloL [Coreg] 3.125 mg PO BID #60 tablet 09/04/21 Unknown Rx traMADoL [Ultram] 50 mg PO Q6HR PRN #10 tablet 09/26/21 Unknown Rx methOCARBAMOL [Robaxin TAB] 750 mg PO Q8H PRN #14 10/07/21 Unknown Rx bisacodyL [Dulcolax suppos] 10 mg MO QDAY PRN #7 supp.rect 11/11/21 Unknown Rx polyethylene glycoL 3350 [Miralax 17 gm PO BID 7 Days #14 packet 11/11/21 Unknown Rx 3350] Allergies Allergy/AdvReac Type Severity Reaction Status Date / Time acetaminophen [From Tylenol] Allergy Itching Verified 10/05/21 01:06 aspirin Allergy Hives Verified 10/05/21 01:06 ED Review of Systems ROS: Stated complaint: AB PAIN Other details as noted in HPI Constitutional: denies: chills, fever Eyes: denies: eye pain, eye discharge, vision change ENT: denies: ear pain, throat pain Respiratory: denies: cough, shortness of breath, wheezing Cardiovascular: denies: chest pain, palpitations Endocrine: no symptoms reported Gastrointestinal: abdominal pain, constipation. denies: nausea, vomiting, diarrhea, hematemesis, melena, hematochezia Genitourinary: denies: urgency, dysuria Musculoskeletal: denies: back pain, joint swelling, arthralgia Skin: denies: rash, lesions Neurological: denies: headache, weakness, paresthesias Psychiatric: denies: anxiety, depression Hematological/Lymphatic: denies: easy bleeding, easy bruising ED Past Medical Hx - Past Medical History Hx Hypertension: Yes Hx CVA: Yes (TIAs, residiu. right side weakness) Hx Heart Attack/AMI: Yes Hx Congestive Heart Failure: Yes Hx Diabetes: Yes (?) Hx Deep Vein Thrombosis: Yes (R-leg) Hx Pulmonary Embolism: Yes Hx Asthma: Yes Hx COPD: Yes (bronchitis) Additional medical history: Ulcers, a-fib. strong family hx of cardiac disorders - Surgical History Additional Surgical History: Back surgery - Social History Smoking Status: Never Smoker - Medications Home Medications: Home Medications Medication Instructions Recorded Confirmed Last Taken Type Ferrous Gluconate [Ferrous 324 mg PO TID #20 tablet 04/28/20 09/02/21 Unknown Rx Gluconate 324 MG] AtorvaSTATin [Lipitor] 40 mg PO QHS #30 tablet 09/04/21 Unknown Rx Clopidogrel [Plavix] 75 mg PO QDAY #30 tablet 09/04/21 Unknown Rx Gabapentin 300 mg PO BID #60 capsule 09/04/21 Unknown Rx Nitroglycerin [Nitrostat] 0.4 mg SL Q5M PRN #30 tablet 09/04/21 Unknown Rx carvediloL [Coreg] 3.125 mg PO BID #60 tablet 09/04/21 Unknown Rx traMADoL [Ultram] 50 mg PO Q6HR PRN #10 tablet 09/26/21 Unknown Rx methOCARBAMOL [Robaxin TAB] 750 mg PO Q8H PRN #14 10/07/21 Unknown Rx bisacodyL [Dulcolax suppos] 10 mg MO QDAY PRN #7 supp.rect 11/11/21 Unknown Rx polyethylene glycoL 3350 [Miralax 17 gm PO BID 7 Days #14 packet 11/11/21 Unknown Rx 3350] ED Physical Exam - General Limitations: No Limitations General appearance: alert, in no apparent distress - Head Head exam: Present: normocephalic, normal inspection - Eye Eye exam: Present: EOMI Pupils: Present: normal accommodation - ENT ENT exam: Present: mucous membranes moist - Neck Neck exam: Present: normal inspection, full ROM. Absent: tenderness - Respiratory Respiratory exam: Present: normal lung sounds bilaterally. Absent: respiratory distress - Cardiovascular Cardiovascular Exam: Present: regular rate, normal rhythm, normal heart sounds. Absent: systolic murmur, diastolic murmur, rubs, gallop - GI/Abdominal GI/Abdominal exam: Present: soft, normal bowel sounds. Absent: distended, tenderness, guarding, rebound, rigid, bruit, hernia - Rectal Rectal exam: Present: deferred - Extremities Exam Extremities exam: Present: normal inspection, full ROM, normal capillary refill. Absent: tenderness - Back Exam Back exam: Present: normal inspection, full ROM. Absent: CVA tenderness (R), CVA tenderness (L) - Neurological Exam Neurological exam: Present: alert, oriented X3, CN II-XII intact, normal gait - Expanded Neurological Exam Expanded Patient oriented to: Present: person, place, time Speech: Present: fluid speech Best Eye Response ([place]): (4) open spontaneously Best Motor Response ([place]): (6) obeys commands Best Verbal Response ([place]): (5) oriented [place] Total: 15 - Psychiatric Psychiatric exam: Present: normal affect, normal mood - Skin Skin exam: Present: warm, dry, intact, normal color. Absent: rash ED Course Vital Signs 11/11/21 01:20 Temperature 98.7 F Pulse Rate 87 Respiratory 18 Rate Blood Pressure 147/80 O2 Sat by Pulse 97 Oximetry ED Medical Decision Making - Medical Decision Making Plan treat constipation. Due to home prescriptions. Advised to drink 1 gallon of water daily for the next 3 days. Patient is currently tolerating p.o. intake including p.o. challenge given in ED without symptoms. Abdomen is remarkably soft and nontender there is no rebound bowel sounds are normal. There is no fevers no chills. Vital signs noted normal. Patient DC'd in stable condition at this time. Critical care attestation.: If time is entered above; I have spent that time in minutes in the direct care of this critically ill patient, excluding procedure time. ED Disposition Clinical Impression: Constipation Qualifiers: Constipation type: unspecified constipation type Qualified Code(s): K59.00 - Constipation, unspecified Disposition: 01 HOME / SELF CARE / HOMELESS Is pt being admited?: No Does the pt Need Aspirin: No Condition: Stable Instructions: Constipation, Adult, [id number], Probiotics Additional Instructions: Take medications as prescribed, drink 1 gallon of water daily for the next 3 days. Follow-up with your doctor in 2 to 3 days. Turn to emergency department as should symptoms worsen or unable to tolerate food by mouth. Prescriptions: bisacodyL [Dulcolax suppos] 10 mg MO QDAY PRN #7 supp.rect PRN Reason: Constipation polyethylene glycoL 3350 [Miralax 3350] 17 gm PO BID 7 Days #14 packet Referrals: WILDA DIAZ MD [Primary Care Provider] - 3-5 Days Forms: Work/School Release Form(ED) Time of Disposition: 06:52
[2021-11-11 06:58] VITALS: BP 142/86
== END 2021-11-11 06:58 | disposition home or self-care (01) ==
LOC: ED 00:19
DX: K59.00 Constipation, unspecified (principal); I11.0 Hypertensive heart disease with heart failure; I50.9 Heart failure, unspecified; I21.9 Acute myocardial infarction, unspecified; E11.9 Type 2 diabetes mellitus without complications; J45.909 Unspecified asthma, uncomplicated; I26.99 Other pulmonary embolism without acute cor pulmonale; Z86.718 Personal history of other venous thrombosis and embolism; Z91.09 Other allergy status, other than to drugs and biological substances; Z79.899 Other long term (current) drug therapy
CPT/HCPCS: 99282

== ENCOUNTER 2021-11-26 00:13 | Emergency (ER) | payer MEDICAID ==
[2021-11-26] MEDS ORDERED: traMADol 50 MG TAB PO ONE (02:08)
--- NOTE | 2021-11-26 02:09 | Emergency Department Report ---
ED Chest Pain HPI - General Chief Complaint: Chest Pain Stated Complaint: CHEST PAIN Time Seen by Provider: 11/26/21 01:59 Source: patient, old records reviewed Mode of arrival: Ambulatory Limitations: No Limitations - History of Present Illness Initial Comments: 41-year-old male with past medical obesity, hypertension, TIA, CHF, diabetes, DVT/PE, asthma, and COPD presents to the hospital with complaints of left upper chest wall pain since 8 PM last night (6 hours). Patient states pain is intermittent, sharp and squeezing with associated shortness of breath and dizziness. Pain is worse upon palpation of the left upper chest and extends to the left shoulder. Patient has history of frequent ER visits for chest pain related complaints and admissions with diagnosis of costochondritis. Patient had a negative stress test in September 05, 2021 and as per cardiology note had a cardiac cath 5 years ago with angiography normal coronary arteries. 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 He is also compliant with his other chronic medications. Patient does have a PMD and is followed by [facility] - Related Data Previous Rx's Medication Instructions Recorded Last Taken Type Ferrous Gluconate [Ferrous 324 mg PO TID #20 tablet 04/28/20 Unknown Rx Gluconate 324 MG] AtorvaSTATin [Lipitor] 40 mg PO QHS #30 tablet 09/04/21 Unknown Rx Clopidogrel [Plavix] 75 mg PO QDAY #30 tablet 09/04/21 Unknown Rx Gabapentin 300 mg PO BID #60 capsule 09/04/21 Unknown Rx Nitroglycerin [Nitrostat] 0.4 mg SL Q5M PRN #30 tablet 09/04/21 Unknown Rx carvediloL [Coreg] 3.125 mg PO BID #60 tablet 09/04/21 Unknown Rx traMADoL [Ultram] 50 mg PO Q6HR PRN #10 tablet 09/26/21 Unknown Rx methOCARBAMOL [Robaxin TAB] 750 mg PO Q8H PRN #14 10/07/21 Unknown Rx bisacodyL [Dulcolax suppos] 10 mg [place] QDAY PRN #7 supp.rect 11/11/21 Unknown Rx polyethylene glycoL 3350 [Miralax 17 gm PO BID 7 Days #14 packet 11/11/21 Unknown Rx 3350] traMADoL [Ultram 50 MG tab] 50 mg PO Q6HR PRN #10 tablet 11/26/21 Unknown Rx Allergies Allergy/AdvReac Type Severity Reaction Status Date / Time acetaminophen [From Tylenol] Allergy Itching Verified 10/05/21 01:06 aspirin Allergy Hives Verified 10/05/21 01:06 Heart Score - HEART Score History: Slightly suspicious EKG: Normal Age: < 45 Risk factors: > 3 risk factors or hx of atherosclerotic disease Troponin: < normal limit HEART Score: 2 - EKG Read Time Time EKG Completed: 00:22 EKG Read Time: 00:24 ED Review of Systems ROS: Stated complaint: CHEST PAIN Other details as noted in HPI Comment: All other systems reviewed and negative ED Past Medical Hx - Past Medical History Hx Hypertension: Yes Hx CVA: Yes (TIAs, residiu. right side weakness) Hx Heart Attack/AMI: Yes Hx Congestive Heart Failure: Yes Hx Diabetes: Yes (?) Hx Deep Vein Thrombosis: Yes (R-leg) Hx Pulmonary Embolism: Yes Hx Asthma: Yes Hx COPD: Yes (bronchitis) Additional medical history: Ulcers, a-fib. strong family hx of cardiac disorders - Surgical History Additional Surgical History: Back surgery - Social History Smoking Status: Never Smoker - Medications Home Medications: Home Medications Medication Instructions Recorded Confirmed Last Taken Type Ferrous Gluconate [Ferrous 324 mg PO TID #20 tablet 04/28/20 09/02/21 Unknown Rx Gluconate 324 MG] AtorvaSTATin [Lipitor] 40 mg PO QHS #30 tablet 09/04/21 Unknown Rx Clopidogrel [Plavix] 75 mg PO QDAY #30 tablet 09/04/21 Unknown Rx Gabapentin 300 mg PO BID #60 capsule 09/04/21 Unknown Rx Nitroglycerin [Nitrostat] 0.4 mg SL Q5M PRN #30 tablet 09/04/21 Unknown Rx carvediloL [Coreg] 3.125 mg PO BID #60 tablet 09/04/21 Unknown Rx traMADoL [Ultram] 50 mg PO Q6HR PRN #10 tablet 09/26/21 Unknown Rx methOCARBAMOL [Robaxin TAB] 750 mg PO Q8H PRN #14 10/07/21 Unknown Rx bisacodyL [Dulcolax suppos] 10 mg [place] QDAY PRN #7 supp.rect 11/11/21 Unknown Rx polyethylene glycoL 3350 [Miralax 17 gm PO BID 7 Days #14 packet 11/11/21 Unknown Rx 3350] traMADoL [Ultram 50 MG tab] 50 mg PO Q6HR PRN #10 tablet 11/26/21 Unknown Rx ED Physical Exam - General Limitations: No Limitations - Other Other exam information: General: No acute distress Head: Atraumatic Eyes: normal appearance ENT: Moist mucous membranes Neck: Normal appearance, no midline tenderness Chest: Clear to auscultation bilaterally, reproducible upper left chest wall tenderness extending to left shoulder CV: Regular rate and rhythm Abdomen: Soft, normal bowel sounds, nontender, nondistended, no rebound or guar ding Back: Normal inspection Extremity: Normal inspection, full range of motion, no calf tenderness or leg edema Neuro: Alert O x 3, speech clear Psych: Appropriate behavior Skin: No rash ED Course Vital Signs 11/26/21 11/26/21 00:17 02:44 Temperature 98.3 F Pulse Rate 98 H Respiratory 18 Rate Blood Pressure 141/84 O2 Sat by Pulse 99 95 Oximetry KIANNA score - Kianna Score Age > 65: (0) No Aspirin use within the Past 7 Days: (0) No 3 or more CAD Risk Factors: (1) Yes 2 or more Angina events in past 24 hrs: (0) No Known CAD with more than 50% Stenosis: (0) No Elevated Cardiac Markers: (0) No ST Deviation Greater than 0.5mm: (0) No KIANNA Score: 1 ED Medical Decision Making - Lab Data Result diagrams: 11/26/21 02:25 11/26/21 02:25 Lab Results 11/26/21 11/26/21 Range/Units 02:25 02:25 WBC 3.5 L (4.5-11.0) K/mm3 RBC 3.88 (3.65-5.03) M/mm3 Hgb 8.3 L (11.8-15.2) gm/dl Hct 27.2 L (35.5-45.6) % MCV 70 L (84-94) fl MCH 21 L (28-32) pg MCHC 31 L (32-34) % RDW 19.2 H (13.2-15.2) % Plt Count 268 (140-440) K/mm3 Lymph % (Auto) 24.2 (13.4-35.0) % [place] % (Auto) 12.2 H (0.0-7.3) % Eos % (Auto) 2.5 (0.0-4.3) % Baso % (Auto) 1.7 (0.0-1.8) % Lymph # (Auto) 0.9 L (1.2-5.4) K/mm3 [place]le # (Auto) 0.4 (0.0-0.8) K/mm3 Eos # (Auto) 0.1 (0.0-0.4) K/mm3 Baso # (Auto) 0.1 (0.0-0.1) K/mm3 Seg Neutrophils % 59.4 (40.0-70.0) % Seg Neutrophils # 2.1 (1.8-7.7) K/mm3 Sodium 138 (137-145) mmol/L Potassium 3.3 L (3.6-5.0) mmol/L Chloride 97.1 L (98-107) mmol/L Carbon Dioxide 26 (22-30) mmol/L Anion Gap 18 mmol/L BUN 7 L (9-20) mg/dL Creatinine 1.0 (0.8-1.3) mg/dL Estimated GFR > 60 ml/min BUN/Creatinine Ratio 7 % Glucose 104 H (75-100) mg/dL Calcium 8.8 (8.4-10.2) mg/dL Troponin T < 0.010 (0.00-0.029) ng/mL - EKG Data -: EKG Interpreted by Nv EKG shows normal: sinus rhythm, ST-T waves (No STEMI) Rate: normal - EKG Data When compared to previous EKG there are: no significant change - Radiology Data Radiology results: report reviewed XR chest 1V ap INDICATION / CLINICAL INFORMATION: Chest Pain. COMPARISON: 10/07/2021 FINDINGS: SUPPORT DEVICES: None. HEART /PULMONARY VASCULATURE: No significant abnormality. LUNGS / PLEURA: No significant pulmonary or pleural abnormality. No pneumothorax. ADDITIONAL FINDINGS: No significant additional findings. IMPRESSION: 1. No acute findings. - Medical Decision Making 41-year-old male with recurrent ED visits for chest pain presents to the hospital with chest pain today. Pain is reproducible on exam. Patient has palpable tenderness to the upper left chest wall. EKG unchanged compared to previous. Troponin negative x1. Negative stress test August of this year and normal coronary arteries on most recent cardiac cath. Chest x-ray unremarkable. Mild anemia noted with history of the same in the past. Patient has normal pulse ox without hypoxia. He is compliant with his Eliquis. P.o. potassium given for mild hypokalemia. patient was treated with tramadol in the ED and will be discharged with outpatient follow-up Critical Care Time: No Critical care attestation.: If time is entered above; I have spent that time in minutes in the direct care of this critically ill patient, excluding procedure time. ED Disposition Clinical Impression: Chest wall pain, Anemia, Hypokalemia Disposition: HOME / SELF CARE / HOMELESS Is pt being admited?: No Does the pt Need Aspirin: No Condition: Stable Instructions: Nonspecific Chest Pain, Adult, [id number], Potassium Content of Foods Additional Instructions: Take the medication as prescribed. 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 Return if symptoms worsen as indicated by your discharge instructions. Prescriptions: traMADoL [Ultram 50 MG tab] 50 mg PO Q6HR PRN #10 tablet PRN Reason: Pain Referrals: [facility] [Provider Group] - 3-5 Days your, primary care doctor [Other] - 3-5 Days Time of Disposition: 03:20
[2021-11-26 02:37] LABS: Basophils # (Auto) 0.1 K/mm3 (0.0-0.1); Basophils % (Auto) 1.7 % (0.0-1.8); Eosinophils # (Auto) 0.1 K/mm3 (0.0-0.4); Eosinophils % (Auto) 2.5 % (0.0-4.3); Hematocrit 27.2 % (35.5-45.6); Hemoglobin 8.3 gm/dl (11.8-15.2); Lymphocytes # (Auto) 0.9 K/mm3 (1.2-5.4); Lymphocytes % (Auto) 24.2 % (13.4-35.0); Mean Corpuscular HGB Conc 31 % (32-34); Mean Corpuscular Volume 70 fl (84-94); Monocytes # (Auto) 0.4 K/mm3 (0.0-0.8); Monocytes % (Auto) 12.2 % (0.0-7.3); Platelet Count 268 K/mm3 (140-440); Red Blood Count 3.88 M/mm3 (3.65-5.03); Red Cell Distribution Width 19.2 % (13.2-15.2)
[2021-11-26 02:54] LABS: BUN/Creatinine Ratio 7; Blood Urea Nitrogen 7 mg/dL (9-20); Calcium 8.8 mg/dL (8.4-10.2); Hemolysis Index 8
--- NOTE | 2021-11-26 02:57 | XRay Report ---
XR chest 1V ap INDICATION / CLINICAL INFORMATION: Chest Pain. COMPARISON: 10/07/2021 FINDINGS: SUPPORT DEVICES: None. HEART /PULMONARY VASCULATURE: No significant abnormality. LUNGS / PLEURA: No significant pulmonary or pleural abnormality. No pneumothorax. ADDITIONAL FINDINGS: No significant additional findings. IMPRESSION: 1. No acute findings. Signer Name: Levi Avila MD Signed: 11/26/2021 2:52 AM Workstation Name: [id number]
[2021-11-26] MEDS ORDERED: POTASSIUM CHLORIDE ER 20 MEQ TAB PO ONE (03:06)
[2021-11-26 03:08] VITALS: BP 112/72
--- NOTE | 2021-11-28 10:12 | Electrocardiograph Report ---
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
== END 2021-11-26 03:37 | disposition home or self-care (01) ==
LOC: ED 00:13
DX: R07.89 Other chest pain (principal); E87.6 Hypokalemia; D64.9 Anemia, unspecified; I11.0 Hypertensive heart disease with heart failure; I50.9 Heart failure, unspecified; E11.9 Type 2 diabetes mellitus without complications; J44.9 Chronic obstructive pulmonary disease, unspecified; Z88.6 Allergy status to analgesic agent; Z79.899 Other long term (current) drug therapy
CPT/HCPCS: 36415; 71045; 80048; 84484; 85025; 93005; 99284

== ENCOUNTER 2021-12-12 00:29 | Emergency (ER) | payer MEDICAID ==
[2021-12-12 01:59] LABS: Basophils % (Auto) 0.8 % (0.0-1.8); Eosinophils # (Auto) 0.1 K/mm3 (0.0-0.4); Hematocrit 28.4 % (35.5-45.6); Hemoglobin 8.7 gm/dl (11.8-15.2); Lymphocytes % (Auto) 28.4 % (13.4-35.0); Mean Corpuscular HGB Conc 31 % (32-34); Mean Corpuscular Volume 73 fl (84-94); Monocytes # (Auto) 0.4 K/mm3 (0.0-0.8); Monocytes % (Auto) 12.2 % (0.0-7.3); Platelet Count 269 K/mm3 (140-440); Red Blood Count 3.88 M/mm3 (3.65-5.03)
[2021-12-12 02:08] LABS: Red Cell Distribution Width 21.4 % (13.2-15.2)
[2021-12-12 02:24] LABS: BUN/Creatinine Ratio 5; Blood Urea Nitrogen 6 mg/dL (9-20); Calcium 9.1 mg/dL (8.4-10.2); Hemolysis Index 12
--- NOTE | 2021-12-12 02:39 | XRay Report ---
CHEST 2 VIEWS INDICATION / CLINICAL INFORMATION: Chest Pain. COMPARISON: Chest x-ray 11/26/2021 FINDINGS: SUPPORT DEVICES: None. HEART / MEDIASTINUM: Heart size and mediastinal contour appear within normal limits. LUNGS / PLEURA: No significant pulmonary or pleural abnormality. No pneumothorax. BONES: No significant osseous abnormality. ADDITIONAL FINDINGS: No significant additional findings. IMPRESSION: 1. No active cardiopulmonary disease. Signer Name: Con Cox II, MD Signed: 12/12/2021 2:37 AM Workstation Name: [id number]
--- NOTE | 2021-12-12 06:33 | Emergency Department Report ---
ED General Adult HPI - General Chief complaint: Chest Pain Stated complaint: CHEST PAIN Source: patient Mode of arrival: Ambulatory Limitations: No Limitations - History of Present Illness Initial comments: Patient is a 41-year-old -British male with a history of hypertension, CVA, ACS, CHF, xvj-vsrnvpr-fzsemrwxt diabetes, DVT, PE, asthma and COPD who presents to the ED with complaint of acute onset persistent diffuse chest pain with shortness of breath for the last 1 week. Patient states that he has been taking his medication as prescribed by his manager of marketing and primary care physician. Patient states that his symptoms are typical and usually occurs constantly despite taking medications. Patient denies dizziness, syncope, fever, chills, nausea and vomiting, diarrhea, traumatic injury, fall, headache, traumatic injury, neck pain, diaphoresis, cough, change in vision, abdominal pain, numbness and tingling or weakness of upper extremities bilaterally. MD Complaint: chest pain, dyspnea, -: Gradual, week(s) (1) Location: chest Severity scale (0 -10): 8 Quality: aching, sharp Consistency: constant Improves with: none Worsens with: none Associated Symptoms: denies other symptoms, chest pain, shortness of breath. denies: confusion, cough, diaphoresis, fever/chills, headaches, loss of appetite, malaise, nausea/vomiting, syncope, weakness Treatments Prior to Arrival: none - Related Data Previous Rx's Medication Instructions Recorded Last Taken Type Ferrous Gluconate [Ferrous 324 mg PO TID #20 tablet 04/28/20 Unknown Rx Gluconate 324 MG] AtorvaSTATin [Lipitor] 40 mg PO QHS #30 tablet 09/04/21 Unknown Rx Clopidogrel [Plavix] 75 mg PO QDAY #30 tablet 09/04/21 Unknown Rx Gabapentin 300 mg PO BID #60 capsule 09/04/21 Unknown Rx Nitroglycerin [Nitrostat] 0.4 mg SL Q5M PRN #30 tablet 09/04/21 Unknown Rx carvediloL [Coreg] 3.125 mg PO BID #60 tablet 09/04/21 Unknown Rx traMADoL [Ultram] 50 mg PO Q6HR PRN #10 tablet 09/26/21 Unknown Rx methOCARBAMOL [Robaxin TAB] 750 mg PO Q8H PRN #14 10/07/21 Unknown Rx bisacodyL [Dulcolax suppos] 10 mg MO QDAY PRN #7 supp.rect 11/11/21 Unknown Rx polyethylene glycoL 3350 [Miralax 17 gm PO BID 7 Days #14 packet 11/11/21 Unknown Rx 3350] traMADoL [Ultram 50 MG tab] 50 mg PO Q6HR PRN #10 tablet 11/26/21 Unknown Rx Albuterol Sulfate [Proair 1 - 2 puff IH Q4H PRN #1 inh 12/12/21 Unknown Rx Respiclick] Allergies Allergy/AdvReac Type Severity Reaction Status Date / Time acetaminophen [From Tylenol] Allergy Itching Verified 10/05/21 01:06 aspirin Allergy Hives Verified 10/05/21 01:06 ED Review of Systems ROS: Stated complaint: CHEST PAIN Other details as noted in HPI Constitutional: denies: chills, fever Eyes: denies: eye pain, eye discharge, vision change ENT: denies: ear pain, throat pain, dental pain, hearing loss, congestion Respiratory: shortness of breath. denies: cough, SOB with exertion, SOB at rest, wheezing Cardiovascular: chest pain. denies: palpitations Endocrine: no symptoms reported Gastrointestinal: denies: abdominal pain, nausea, vomiting, diarrhea Genitourinary: denies: urgency, dysuria Musculoskeletal: denies: back pain, joint swelling, arthralgia Skin: denies: rash, lesions Neurological: denies: headache, weakness, paresthesias Psychiatric: denies: anxiety, depression Hematological/Lymphatic: denies: easy bleeding, easy bruising ED Past Medical Hx - Past Medical History Hx Hypertension: Yes Hx CVA: Yes (TIAs, residiu. right side weakness) Hx Heart Attack/AMI: Yes Hx Congestive Heart Failure: Yes Hx Diabetes: Yes (?) Hx Deep Vein Thrombosis: Yes (R-leg) Hx Pulmonary Embolism: Yes Hx Asthma: Yes Hx COPD: Yes (bronchitis) Additional medical history: Ulcers, a-fib. strong family hx of cardiac disorders - Surgical History Additional Surgical History: Back surgery - Social History Smoking Status: Never Smoker - Medications Home Medications: Home Medications Medication Instructions Recorded Confirmed Last Taken Type Ferrous Gluconate [Ferrous 324 mg PO TID #20 tablet 04/28/20 09/02/21 Unknown Rx Gluconate 324 MG] AtorvaSTATin [Lipitor] 40 mg PO QHS #30 tablet 09/04/21 Unknown Rx Clopidogrel [Plavix] 75 mg PO QDAY #30 tablet 09/04/21 Unknown Rx Gabapentin 300 mg PO BID #60 capsule 09/04/21 Unknown Rx Nitroglycerin [Nitrostat] 0.4 mg SL Q5M PRN #30 tablet 09/04/21 Unknown Rx carvediloL [Coreg] 3.125 mg PO BID #60 tablet 09/04/21 Unknown Rx traMADoL [Ultram] 50 mg PO Q6HR PRN #10 tablet 09/26/21 Unknown Rx methOCARBAMOL [Robaxin TAB] 750 mg PO Q8H PRN #14 10/07/21 Unknown Rx bisacodyL [Dulcolax suppos] 10 mg MO QDAY PRN #7 supp.rect 11/11/21 Unknown Rx polyethylene glycoL 3350 [Miralax 17 gm PO BID 7 Days #14 packet 11/11/21 Unknown Rx 3350] traMADoL [Ultram 50 MG tab] 50 mg PO Q6HR PRN #10 tablet 11/26/21 Unknown Rx Albuterol Sulfate [Proair 1 - 2 puff IH Q4H PRN #1 inh 12/12/21 Unknown Rx Respiclick] ED Physical Exam - General Limitations: No Limitations General appearance: alert, in no apparent distress - Head Head exam: Present: atraumatic, normocephalic, normal inspection - Eye Eye exam: Present: normal appearance, PERRL, EOMI Pupils: Present: normal accommodation - ENT ENT exam: Present: normal exam, normal orophraynx, mucous membranes moist, TM's normal bilaterally, normal external ear exam - Neck Neck exam: Present: normal inspection, full ROM. Absent: tenderness - Respiratory Respiratory exam: Present: normal lung sounds bilaterally. Absent: respiratory distress, wheezes, rales, rhonchi, stridor, chest wall tenderness, accessory muscle use, decreased breath sounds - Cardiovascular Cardiovascular Exam: Present: normal rhythm, tachycardia, normal heart sounds. Absent: systolic murmur, diastolic murmur, rubs, gallop - GI/Abdominal GI/Abdominal exam: Present: soft, normal bowel sounds. Absent: tenderness, guarding, rebound, rigid, hyperactive bowel sounds, hypoactive bowel sounds, organomegaly - Extremities Exam Extremities exam: Present: normal inspection, full ROM, normal capillary refill. Absent: tenderness - Back Exam Back exam: Present: normal inspection, full ROM. Absent: tenderness, CVA tenderness (R), CVA tenderness (L), muscle spasm, paraspinal tenderness, vertebral tenderness - Neurological Exam Neurological exam: Present: alert, oriented X3, CN II-XII intact, normal gait, reflexes normal - Psychiatric Psychiatric exam: Present: normal affect, normal mood, anxious - Skin Skin exam: Present: warm, dry, intact, normal color. Absent: rash ED Course Vital Signs 12/12/21 01:24 Temperature 98.3 F Pulse Rate 100 H Respiratory 18 Rate Blood Pressure 128/77 [Right] O2 Sat by Pulse 99 Oximetry ED Medical Decision Making - Lab Data Result diagrams: 12/12/21 01:44 12/12/21 01:44 - EKG Data EKG shows normal: sinus rhythm Rate: normal - EKG Data Interpretation: normal EKG 12/12/21 06:32 The EKG shows normal sinus rhythm with a ventricular rate of [address] or T wave abnormalities. - Radiology Data Radiology results: report reviewed, image reviewed [address] [address] XRay Report Signed Patient: DYAN SHEFFIELD JR MR#: [id number] : 1980 Acct:[id number] Age/Sex: 41 / M ADM Date: 12/12/21 Loc: ED Attending Dr: Ordering Physician: YARELY KLEIN MD Date of Service: 12/12/21 Procedure(s): XR chest routine 2V Accession Number(s): [id number] cc: ED MD ERNIE Fluoro Time In Minutes: CHEST 2 VIEWS INDICATION / CLINICAL INFORMATION: Chest Pain. COMPARISON: Chest x-ray 11/26/2021 FINDINGS: SUPPORT DEVICES: None. HEART / MEDIASTINUM: Heart size and mediastinal contour appear within normal l imits. LUNGS / PLEURA: No significant pulmonary or pleural abnormality. No pneumothorax. BONES: No significant osseous abnormality. ADDITIONAL FINDINGS: No significant additional findings. IMPRESSION: 1. No active cardiopulmonary disease. Signer Name: Sayra Calderon II, MD Signed: 12/12/2021 2:37 AM Workstation Name: [id number] Transcribed By: TONNY Dictated By: SAYRA CALDERON II, MD Electronically Authenticated By: SAYRA CALDERON II, MD Signed Date/Time: 12/12/21 0237 DD/ 0224 TD/TT: - Medical Decision Making This is a 41-year-old -British male with a history of hypertension, CVA, ACS, CHF, lby-odfwgkl-spabiadzr diabetes, DVT, PE, asthma and COPD who presents to the ED with complaint of acute onset persistent diffuse chest pain with shortness of breath for the last 1 week. Patient states that he has been taking his medication as prescribed by his manager of marketing and primary care physician. Patient states that his symptoms are typical and usually occurs constantly despite taking medications. In the ED, patient is alert and oriented x3 and is not in any distress. All lab test results were reviewed and are all nonactionable. EKG shows normal sinus rhythm with a ventricular rate of [address] or T wave abnormalities. Chest x-ray showed no acute cardiopulmonary abnormalities or pneumonitis. Patient has established manager of marketing that follows him closely due to his chronic conditions. All lab test results this visit were all unremarkable including the troponin levels. Patient was discharged home and advised to follow-up with his manager of marketing in the next 24 to 48 hours for further evaluation. Patient was advised to return to the ED immediately if symptoms get worse. - Differential Diagnosis pneumonia; Bronchitis; ACS; PE; Disection; muscle strain Critical care attestation.: If time is entered above; I have spent that time in minutes in the direct care of this critically ill patient, excluding procedure time. ED Disposition Clinical Impression: Atypical chest pain, Shortness of breath, Anxiety as acute reaction to exceptional stress, Musculoskeletal chest pain Disposition: HOME / SELF CARE / HOMELESS Is pt being admited?: No Does the pt Need Aspirin: No Condition: Stable Instructions: Shortness of Breath, Adult, [id number], Nonspecific Chest Pain, Adult, Eiyv-xz-Mnzs, Generalized Anxiety Disorder, Adult, Nonspecific Chest Cheko n, Adult Additional Instructions: All lab test results were reviewed and are all nonactionable. Chest x-ray showed no acute cardiopulmonary abnormalities or pneumonitis. Therefore take medications for pain as needed and follow-up with your primary care physician in 5 to 7 days for reevaluation. Return to the ED immediately if symptoms get worse. Prescriptions: Albuterol Sulfate [Proair Respiclick] 1 - 2 puff IH Q4H PRN #1 inh PRN Reason: Dyspnea Referrals: WILDA DIAZ MD [Primary Care Provider] - 7-10 days EAGLE PÉREZ MD [Staff Physician] - 3-5 Days Time of Disposition: 06:35 Print Language: SLOVAK
[2021-12-12 06:59] VITALS: BP 122/72
--- NOTE | 2021-12-13 08:23 | Electrocardiograph Report ---
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
== END 2021-12-12 06:59 | disposition home or self-care (01) ==
LOC: ED 00:29
DX: R07.89 Other chest pain (principal); F41.1 Generalized anxiety disorder; F43.0 Acute stress reaction; I11.0 Hypertensive heart disease with heart failure; I50.9 Heart failure, unspecified; J44.9 Chronic obstructive pulmonary disease, unspecified; E11.9 Type 2 diabetes mellitus without complications; Z88.6 Allergy status to analgesic agent; Z79.899 Other long term (current) drug therapy
CPT/HCPCS: 36415; 71046; 80048; 84484; 85025; 93005; 99283; 99284

== ENCOUNTER 2022-01-01 02:03 | Emergency (ER) | payer MEDICAID ==
[2022-01-01 03:26] VITALS: BP 132/80
[2022-01-01] MEDS ORDERED: ASPIRIN 325 MG TAB PO ONE (03:26)
[2022-01-01 04:06] LABS: Basophils % (Auto) 0.8 % (0.0-1.8); Eosinophils # (Auto) 0.1 K/mm3 (0.0-0.4); Eosinophils % (Auto) 4.6 % (0.0-4.3); Hematocrit 29.8 % (35.5-45.6); Hemoglobin 9.1 gm/dl (11.8-15.2); Lymphocytes # (Auto) 0.9 K/mm3 (1.2-5.4); Lymphocytes % (Auto) 28.6 % (13.4-35.0); Mean Corpuscular HGB Conc 31 % (32-34); Mean Corpuscular Volume 75 fl (84-94); Monocytes # (Auto) 0.5 K/mm3 (0.0-0.8); Monocytes % (Auto) 14.5 % (0.0-7.3); Platelet Count 245 K/mm3 (140-440); Red Blood Count 3.97 M/mm3 (3.65-5.03)
[2022-01-01 04:19] LABS: Alanine Aminotransferase 19 units/L (7-56); Albumin 4.1 g/dL (3.9-5); BUN/Creatinine Ratio 11; Blood Urea Nitrogen 13 mg/dL (9-20); Calcium 8.9 mg/dL (8.4-10.2); Hemolysis Index 6
[2022-01-01 04:30] LABS: Red Cell Distribution Width 22.4 % (13.2-15.2)
--- NOTE | 2022-01-01 05:15 | XRay Report ---
CHEST 2 VIEWS INDICATION / CLINICAL INFORMATION: chestpain. COMPARISON: Chest x-ray 12/12/2021 FINDINGS: SUPPORT DEVICES: None. HEART / MEDIASTINUM: Heart size and mediastinal contour appear within normal limits. LUNGS / PLEURA: No significant pulmonary or pleural abnormality. No pneumothorax. BONES: No significant osseous abnormality. ADDITIONAL FINDINGS: No significant additional findings. IMPRESSION: 1. No active cardiopulmonary disease. Signer Name: Con Cox II, MD Signed: 01/01/2022 5:10 AM Workstation Name: [id number]
--- NOTE | 2022-01-03 09:53 | Electrocardiograph Report ---
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
== END 2022-01-01 03:00 | disposition left against medical advice (07) ==
LOC: ED 02:03
DX: R07.89 Other chest pain (principal); Z53.21 Procedure and treatment not carried out due to patient leaving prior to being seen by health care provider
CPT/HCPCS: 36415; 71046; 80053; 84484; 85025; 93005